=== PATIENT | female | born 1945 | race Caucasian/White ===

== ENCOUNTER 2021-12-10 08:55 | Emergency (ER) | payer MEDICARE, OTHER, SELFPAY ==
[2021-12-10 09:09] VITALS: BP 122/75; PULSE 64; RESP 18; TEMP 36.5; O2SAT 98
--- NOTE | 2021-12-10 09:21 | ED.GENADUL_ITS ---
Discharge Plan Disposition Patient Disposition: HOME Condition: Good Discharge Details Clinical Impression: Tick bite of left upper arm Primary Care Provider: Rebecca Kumar ED Provider: Kerry Urban Home Meds and New Rx's Prescriptions: New doxycycline hyclate 100 mg tablet 200 mg PO DAILY Qty: 2 0RF Rx Instructions: take 200mg x 1 after breakfast Discharge Instructions Instructions: Tick Bite (ED) Additional Instructions: I am concerned you were bit by a deer tick which was potentially embedded long enough to transmit Lyme disease or other tickborne illness. Given the time from when he removed the tick coming in, we are able to treat you with a one-time dose of doxycyclin. I would like for you to eat something prior to taking the antibiotic. As we discussed, this can cause some sensitivity to the sun so please try to keep yourself covered. Please follow-up with your primary care for reevaluation as needed. As discussed, if you notice that small area of redness to begin expanding, you develop fever/chills or other new/worsening symptoms please seek care urgently once again. Referrals: Rebecca Kumar [Primary Care Provider] - Medical Decision Making Patient is a pleasant 76-year-old female presented with chief complaint of tick bite. She reports that she removed an embedded tick from her left upper arm yesterday after working in the yard. States that the tick was clearly embedded and was very tiny. Was not able to tell me what type of tick it was. However, size description does have a concern for deer tick. She denies any fever/chills. No chest pain or palpitations. No radiation of pain. No joint swelling or new joint discomfort. On exam, patient appears nontoxic. She has a small circular area of erythema in the medial aspect of the left upper extremity Distant with history of embedded tick and removal. No surrounding evidence to suggest a cellulitis, no lymphadenopathy. Her history does have any concern for tickborne illness expos ure. I do feel that treating with prophylactic antibiotics is appropriate. We will give a one-time dose of 200 mg of doxycycline. We discussed new/worsening symptoms that should prompt urgent evaluation. I did warn side effects associate with doxycycline. Return discussed. All of her questions and concerns were addressed agreement with plan. HPI General Date/Time Provider Initiated Documentation: 12/10/21 09:20 . Limitations to Documentation: no limitations . Information obtained by: patient and RN notes reviewed . History of Present Illness 76 year old F presents to the emergency department with the chief comp laint of tick bite left upper arm, described as moderate, with intensity rated at 5. Quality is described as aching, and is localized to the left and upper extremity. Patient reports no radiation. Patient started experiencing this day(s) (last night) and it has been constant. No relieving factors improve symptom(s), No exacerbating factors reported . Patient notes no other symptoms.. Patient did receive the following treatments prior to arrival, none Related Data Home Medications Medication Instructions Recorded Confirmed doxycycline hyclate 100 mg tablet 200 mg PO DAILY #2 tabs 12/10/21 Previous Rx's Medication Instructions Recorded doxycycline hyclate 100 mg tablet 200 mg PO DAILY #2 tabs 12/10/21 Allergies Allergy/AdvReac Type Severity Reaction Status Date / Time nylon AdvReac Mild Skin Rash Unverified 12/10/21 09:14 General Stated Complaint: RashLesion COLLIN: 4 Review of Systems Constitutional Constitutional: Reports as per HPI, Denies chills and Denies fever(s) Cardiovascular Cardiovascular: Reports as per HPI, Denies chest pain and Denies dyspnea Respiratory Respiratory: Reports as per HPI, Denies cough and Denies dyspnea Musculoskeletal Musculoskeletal: Reports as per HPI, Denies arthralgias and Denies joint sw elling Integumentary/Breasts Skin/Breast: Reports as per HPI Neurologic Neurologic: Reports as per HPI, Denies sensory deficit and Denies paresthesias PFSH All Active Problems (Updated 12/10/21 @ 09:27 by AME Bhakta) Tick bite of left upper arm (Acute) Social History Smoking/Tobacco Use Status: Never Smoking risk assessment performed?: Yes Alcohol Intake: current Alcohol Intake frequency: a few times a week Alcohol type: beer Drug use: Never Do you feel safe at home: Yes Do you feel safe in your relationship?: Yes Exam Const General: cooperative, healthy appearing, comfortable, no acute distress and well developed Nutritional Appearance: average body habitus and well nourished Orientation: alert and awake Resp Effort & Inspection: normal respiratory effort, able to speak in complete sentences and no respiratory distress Cardio Rate: regular rate Rhythm: regular rhythm Skin General skin exam: erythema Neuro General: patient alert and patient awake Cognition: normal cognition Speech: speech normal Gait: normal gait Sensory Exam: no sensory deficits noted Extrem Shoulder/upper arm images: 1. <1cm erythematous [place] surrounding dark area consistent with puncture from tick. No lymphadenopathy. Good ROM. No fluctuance, induration, streaking Psych Appearance: grossly normal and well kempt Mental Status: mental status grossly normal Speech and Movement: speech and movement normal Course Vital Signs Vital signs: Vital Signs Temperature 36.5 C 12/10/21 09:09 Pulse 64 12/10/21 09:09 Respiratory Rate 18 12/10/21 09:09 Blood Pressure 122/75 12/10/21 09:09 Pulse Oximetry 98 12/10/21 09:09 Temperature 36.5 C 12/10/21 09:09 Temperature Source Skin 12/10/21 09:09 Pulse 64 12/10/21 09:09 Respiratory Rate 18 12/10/21 09:09 Blood Pressure 122/75 12/10/21 09:09 Blood Pressure Position Sitting 12/10/21 09:09 Pulse Oximetry 98 12/10/21 09:09 Oxygen Delivery Method Room Air 12/10/21 09:09 Oxygen Flow Rate 0 12/10/21 09:09 Pain Level 5 12/10/21 09:09 Comment 12/10/21 09:09 PAWSS Have you Been Recently Intoxicated or Drunk Within the Last 30 days?: No Have you Ever Experienced Previous Episodes of Alcohol Withdrawal?: No Have you ever Experienced Withdrawal Seizures?: No Have you ever Experienced Delirium Tremens(DT)s?: No Have you ever undergone Alcohol Rehabilitation Treatment (i.e, inpt ot outpatient treatment programs)?: No Have you ever Experienced Blackouts?: No Have you ever Combined Alcohol with other Downers within the last 90 days?: No Have you ever Combined Alcohol with any other Substance of Abuse during the last 90 days?: No Positive Blood Alcohol level on Presentation? [PCS.BAL]: No Evidence of Increased Autonomic Activity (i.e. HR>120, tremor, sweating, agitation, nausea)?: No Result: 0
== END 2021-12-10 09:42 | disposition home or self-care (01) ==
PROVIDERS: Emergency Provider Physician Assistant; PCP Internal Medicine
DX: S40.862A Insect bite (nonvenomous) of left upper arm, initial encounter (principal); W57.XXXA Bitten or stung by nonvenomous insect and other nonvenomous arthropods, initial encounter
CPT/HCPCS: 99283

== ENCOUNTER 2022-05-24 08:47 | Emergency (ER) | payer MEDICARE, OTHER, SELFPAY ==
[2022-05-24 08:51] VITALS: BP 132/68; PULSE 71; RESP 18; TEMP 36.8; O2SAT 97
--- NOTE | 2022-05-24 09:05 | ED.GENADUL_ITS ---
Discharge Plan Disposition Patient Disposition: HOME Condition: Good Discharge Details Clinical Impression: Tick bite Primary Care Provider: Jannette Devi ED Provider: Dung Tidwell Home Meds and New Rx's Prescriptions: Continued doxycycline hyclate 100 mg tablet 200 mg PO DAILY Qty: 2 0RF Rx Instructions: take 200mg x 1 after breakfast atorvastatin 20 mg Tablet 20 mg PO DAILY torsemide 20 mg Tablet 20 mg PO DAILY brinzolamide [Azopt] 1 % Drops,Suspension 1 drp OPHTHALMIC (EYE) BID lisinopril [Zestril] 20 mg Tablet 10 mg PO DAILY allopurinol 100 mg Tablet 100 mg PO DAILY spironolactone 25 mg Tablet 12.5 mg PO DAILY timolol maleate 0.5 % Drops 1 drp OPHTHALMIC (EYE) DAILY metoprolol tartrate 25 mg Tablet 12.5 mg PO BID Discharge Instructions Instructions: Tick Bite (ED) Additional Instructions: Please watch for signs of infection and return immediately if these occur. Otherwise if you develop any flulike symptoms, joint swelling, rash, or other concerning findings for Lyme disease please follow-up with your primary care provider for reassessment or if unable to obtain an appointment feel free to return the emergency department. Referrals: Jannette Devi [Primary Care Provider] - (As needed for reassessment) Medical Decision Making Patient presenting the emergency department for tick bite to right posterior thigh. Patient denies any symptoms and states she attempted to remove the tick but only got part of it out. Physical exam shows embedded tick to the right posterior leg with mild surrounding erythema. No bull's-eye type rash, exam otherwise unremarkable. Attempted to remove remaining portions of tick that was successful. Patient was encouraged to watch site for signs of infection. Given that tick was embedded and unknown exact amount of time of bite we will give patient single dose of doxycycline due to local prevalence of Lyme disease. Patient encouraged to continue to monitor symptoms and follow-up with primary care provider or return to the emergency department as needed. After discussion of diagnosis and plan of care patient has no further needs, questions, or concerns and states clear understanding to return to the emergency department for any worsening symptoms. This documentation was generated using mPorticoation system, please disregard any oddities of phrase or misspellings. HPI General Mode of arrival: ambulatory . Date/Time Provider Initiated Documentation: 05/24/22 08:49 . Limitations to Documentation: no limitations . Information obtained by: patient and RN notes reviewed . History of Present Illness 76 year old F presents to the emergency department with the chief complaint of Tick bite right posterior leg, Quality is described as other (Denies pain), Patient started experiencing this unknown and it has been constant. No exacerbating factors reported . Patient notes no other symptoms.. Patient did receive the following treatments prior to arrival, none Related Data Home Medications Medication Instructions Recorded Confirmed allopurinol 100 mg tablet 100 mg PO DAILY 12/10/21 05/24/22 atorvastatin 20 mg tablet 20 mg PO DAILY 12/10/21 05/24/22 brinzolamide 1 % eye 1 drp ophthalmic (eye) BID 12/10/21 05/24/22 drops,suspension (Azopt) doxycycline hyclate 100 mg tablet 200 mg PO DAILY #2 tabs 12/10/21 05/24/22 lisinopril 20 mg tablet (Zestril) 10 mg PO DAILY 12/10/21 05/24/22 metoprolol tartrate 25 mg tablet 12.5 mg PO BID 12/10/21 05/24/22 spironolactone 25 mg tablet 12.5 mg PO DAILY 12/10/21 05/24/22 timolol maleate 0.5 % eye drops 1 drp ophthalmic (eye) DAILY 12/10/21 05/24/22 torsemide 20 mg tablet 20 mg PO DAILY 12/10/21 05/24/22 Previous Rx's Medication Instructions Recorded doxycycline hyclate 100 mg tablet 200 mg PO DAILY #2 tabs 12/10/21 Allergies Allergy/AdvReac Type Severity Reaction Status Date / Time nylon AdvReac Mild Skin Rash Unverified 12/10/21 09:14 General Stated Complaint: RashLesion COLLIN: 4 Review of Systems Narrative: 8 systems reviewed and unremarkable except what is marked below. Integumentary/Breasts Skin/Breast: Reports as per HPI, Reports erythema and Denies rash PFSH All Active Problems Tick bite (Acute) Social History Smoking/Tobacco Use Status: Never Smoking risk assessment performed?: Yes Alcohol Intake: current Alcohol Intake frequency: a few times a week Alcohol type: beer Drug use: Never Do you feel safe at home: Yes Do you feel safe in your relationship?: Yes Exam Const General: cooperative, comfortable and no acute distress Orientation: alert, awake and oriented x3 Resp Effort & Inspection: normal respiratory effort and able to speak in complete sentences Skin General skin exam: erythema (Circular area with central bite garo consistent with insect/tick bite), no fluctuance, no induration and other Rashes: no rashes Neuro General: patient alert, patient awake and patient oriented x3 Course Vital Signs Vital signs: Vital Signs Temperature 36.8 C 05/24/22 08:51 Pulse 71 05/24/22 08:51 Respiratory Rate 18 05/24/22 08:51 Blood Pressure 132/68 05/24/22 08:51 Pulse Oximetry 97 05/24/22 08:51 Temperature 36.8 C 05/24/22 08:51 Temperature Source Oral 05/24/22 08:51 Pulse 71 05/24/22 08:51 Respiratory Rate 18 05/24/22 08:51 Respiratory Effort Non-Labored 05/24/22 08:54 Blood Pressure 132/68 05/24/22 08:51 Blood Pressure Position Sitting 05/24/22 08:51 Pulse Oximetry 97 05/24/22 08:51 Pain Level 0 05/24/22 08:51
[2022-05-24] MEDS: Doxycycline Hyclate 100 MG CAP 200 MG PO (09:09)
== END 2022-05-24 09:12 | disposition home or self-care (01) ==
PROVIDERS: Emergency Provider Nurse Practitioner Family; PCP Nurse Practitioner Family
DX: S70.361A Insect bite (nonvenomous), right thigh, initial encounter (principal); W57.XXXA Bitten or stung by nonvenomous insect and other nonvenomous arthropods, initial encounter
CPT/HCPCS: 99283

== ENCOUNTER 2024-01-07 01:40 | Outpatient (CLI) | payer MEDICARE, OTHER, SELFPAY ==
[2024-01-07 14:04] LABS: HCT 36.7 % (36.0-46.0); MCH 30.9 pg (27.0-33.0); MCHC 32.7 % (32.0-36.0); MCV 95 fL (80-95); MPV 10.4 fL (8.0-11.0); Platelet Count 192 10^3/uL (130-400); RBC 3.88 10^6/uL (3.93-5.22); RDW 13.4 % (11.7-14.6); RDW-SD 46.8 fL; WBC 6.13 10^3/uL (4.4-10.8)
[2024-01-07 14:36] LABS: ALT 24 U/L (14-59); AST 20 U/L (15-37); Albumin 4.1 g/dL (3.4-5.0); Alkaline Phosphatase 65 U/L (46-116); Anion Gap 9.7 mmol/L (3-11); BUN 29 mg/dL (7-18); Bilirubin, Total 0.5 mg/dL (0.2-1.0); CO2 25.3 mmol/L (21.0-32.0); CREATININE 1.3 mg/dL (0.55-1.02); Calcium 9.3 mg/dL (8.5-10.1); Chloride 104 mmol/L (98-107); Estimated GFR 41.83 (mL/min/1.73m2); Glucose 91 mg/dL (74-106); Potassium 3.9 mmol/L (3.5-5.1); Sodium 139 mmol/L (136-145); Total Protein 7.1 g/dL (6.4-8.2); Uric Acid 5.8 mg/dL (2.6-6.0)
[2024-01-07 14:49] LABS: Calculated LDL 61 mg/dL (<100); Cholesterol 135 mg/dL (<200); HDL Cholesterol 41 mg/dL (40-60); Triglyceride 165 mg/dL (<150)
== END 2024-01-07 01:41 | disposition home or self-care (01) ==
LOC: LBO 01:40
PROVIDERS: PCP Family Medicine; Visit Provider Family Medicine
DX: I10 Essential (primary) hypertension; E11.9 Type 2 diabetes mellitus without complications; E03.9 Hypothyroidism, unspecified
CPT/HCPCS: 36415; 80053; 80061; 85027; 83036; 84443; 84550

== ENCOUNTER 2024-07-09 00:12 | Outpatient (CLI) | payer MEDICARE, OTHER, SELFPAY ==
--- OUTSIDE RECORDS SUMMARY | 2024-07-09 00:15 | XMS_ITS | Referral Summary ---
Author Organization [facility] Address [address] [place] [address] Care Team Providers Care Kit Planner Name Role Phone Jannette Perales NP Primary Care Provider Luis Elaine MD Unavailable [phone] Encounters Date Type Department Care Team Description 07/06/[address] [facility] - [address] [address] Cht, Admin Patient Outreach from Last 3 Months Allergies Active Allergy Reactions Criticality Noted Date Comments Hydromorphone Itching 07/24/2016 Hydrocodone Itching 07/24/2016 Oxycodone Itching 07/24/2016 Other reaction(s): urticaria, pt reports ok if take 1 at HS Dipivefrin Rash 07/24/2016 Eye drops Medications brinzolamide (AZOPT) 1 % ophthalmic suspension Place 1 Drop into both eyes 2 times daily. Active cholecalciferol, Vitamin D3, 1,000 unit tablet Take 1 Tablet by mouth daily. Active latanoprost (XALATAN) 0.005 % ophthalmic solution PLACE ONE DROP INTO BOTH EYES NIGHTLY 11 9 Active aspirin 81 mg EC tablet Take 1 Tablet by mouth daily. Active timolol (TIMOPTIC) 0.5 % ophthalmic solution 1 Active acetaminophen (TYLENOL) 500 mg tablet Take 1 Tablet by mouth every 6 hours as needed for Pain. Active allopurinoL (ZYLOPRIM) 100 mg tabletIndications:H yperuricemia Take 1 Tablet by mouth daily. 90 Tablet 3 4 Active atorvastatin (LIPITOR) 20 mg tabletIndications:A rteriosclerotic cardiovascular disease Take 1 Tablet by mouth daily. 90 Tablet 3 4 Active ZESTRIL 20 mg tabletIndications:E ssential (primary) hypertension Take 0.5 Tablets by mouth daily. 90 Tablet 3 4 Active traZODone (DESYREL) 50 mg tabletIndications:P rimary insomnia Take 1 Tablet by mouth at bedtime. 90 Tablet 3 4 Active spironolactone (ALDACTONE) 25 mg tabletIndications:E ssential (primary) hypertension Take 0.5 Tablets by mouth daily. 45 Tablet 3 4 Active torsemide (DEMADEX) 20 mg tabletIndications:E ssential (primary) hypertension Take 1 Tablet by mouth daily. 90 Tablet 1 4 Active Active Problems Patient Care Coordination No te Formatting of this note migh t be different from the original. 2022-02- [facility]- Permission to speak with Fuentes Rodrigez (son) and Fide Salmeron (daughter) Problem Noted Date Diagnosed Date CKD (chronic kidney disease) stage 3, GFR 30-59 ml/min ([facility]) 06/14/2019 Depression 06/14/2019 Diastolic dysfunction 06/14/2019 Essential (primary) hypertension 06/14/2019 Exertional dyspnea 06/14/2019 Glaucoma 06/14/2019 Hyperlipidemia 06/14/2019 Hyperuricemia 06/14/2019 Impaired glucose tolerance 06/14/2019 Insomnia 06/14/2019 Obstructive sleep apnea 06/14/2019 Arteriosclerotic cardiovascular disease 06/14/20 19 Osteopenia 06/14/2019 Other fatigue 06/14/2019 Tear of right supraspinatus tendon 06/14/2019 Gastroesophageal reflux disease without esophagi tis 01/01/2018 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 Overview (06/15/2019): Last Assessment & Plan: Assessment: No progressive glaucoma damage on current medical therapy Plan: Continue present meds: * Azopt both eyes 2 times daily * Timolol gel both eyes daily * Latanoprost both eyes nightly Follow-up in 6 more months with repeat [facility] - see montessori teacher next visit then back to new glaucoma provider once we have one on board Pseudophakia of both eyes 01/16/2011 S/P rotator cuff surgery 11/19/2010 Overview (06/15/2019): Overview: Bilateral repairs S/P tonsillectomy 11/19/2010 S/P hysterectomy 11/19/2010 S/P left mastectomy 11/19/2010 S/P coronary artery stent placement 11/19/2010 S/P cerebral aneurysm repair 11/19/2010 Acute spont subarachnoid int racranial hemorrhage d/t cerebral aneurysm ([facility]) 11/19/2010 Status post hip replacement 11/13/2010 Overview (06/15/2019): Overview: Dx replacement utility run on deactivated IMO Dx [id number] Resolved Problems Problem Noted Date Diagnosed Date Resolved Date Knee pain 06/14/2019 12/09/2022 Malignant neoplasm of female breast ([facility]) 06/14/20 19 09/16/2020 Immunizations Name Administration Dates Next Due Covid-19 mRNA Vaccine (MODER NA COVID-19) PF 0.5 ml IM (12 yrs+) 05/28/2021,10/06/2020,09/08/2020 Covid-19 mRNA-LNP 2022- Va ccine (MODERNA COVID-19) PF 0.5 mL IM (12 yrs+) 06/13/2023 Covid-19 mRNA-LNP Bivalent V accine (MODERNA BIVALENT ADDL DOSE) PF 0.5 mL IM (12 yrs+) (BLUE) 04/30/2022 Influenza (whole) 04/27/2010,07/28/2005 Influenza Vaccine High Dose (FLUZONE HIGH DOSE) PF 0.7 ml IM (65 yrs+) 06/13/2020 Influenza Vaccine Quad (AFLU DI) PF 0.5 ml IM (3 yrs+) 06/10/2018,06/09/2017,07/09/2016 Influenza Vaccine Quad High Dose (FLUZONE HIGH DOSE) PF 0.7 ml IM (65 yrs+) 2021 Influenza Vaccine Quad PF 0. 5 ml IM (6 mos+) 06/18/2019 Pneumococcal Conjugate Vacci ne 13-Valent (PCV13) (PREVNAR-13) 0.5 mL IM (6 wks+) 07/07/2015 Pneumococcal Polysaccharide (PPSV23) Vaccine (PNEUMOVAX-23) =>2YO SQ/IM 07/02/2013,09/05/2006 Tdap Vaccine =>7YO IM 04/17/2012 Social History Tobacco Use Types Packs/Day Years Used Date Smoking Tobacco: Never Smokeless Tobacco: Never Tobacco Cessation:Counseling Given: Not Answered Alcohol Use Standard Drinks/Week Comments Yes 2 (1 standard drink = 0.6 oz pur e alcohol) Overall Financial Resource Strain (CARDIA) Answe r Date Recorded How hard is it for you to pa y for the very basics like food, housing, medical care, and heating? Not hard at all 2021 PHQ-2 Answer Date Recorded PHQ-2 SUBTOTAL 0 2021 Hunger Vital Sign Answer Date Recorded Within the past 12 months, y ou worried that your food would run out before you got the money to buy more. Never true 09/20/19 22 Within the past 12 months, t he food you bought just didn't last and you didn't have money to get more. Never true 2021 PRAPARE - Transportation Answer Date Re corded In the past 12 months, has l ack of transportation kept you from medical appointments or from getting medications? No 08/29 In the past 12 months, has l ack of transportation kept you from meetings, work, or from getting things needed for daily living? No 2021 Housing Stability Vital Sign Answer Alan e Recorded In the last 12 months, was t here a time when you were not able to pay the mortgage or rent on time? No 2021 In the last 12 months, how many places have you lived? 1 2021 In the last 12 months, was t here a time when you did not have a steady place to sleep or slept in a snf (including now)? No 2021 Interpersonal Safety Answer Date Record ed How often does anyone, inclroz lilly family, hit, punch or physically hurt you? Never 2021 How often does anyone, jennifer lilly family, insult, scream, curse or threaten to hurt you? Never 2021 Comments Unknown Sex and Gender Information Value Date Recorded Sex Assigned at Not on file Legal Sex Female 18:07 EST Gender Identity Female 02/07/2020 10:33 EDT Sexual Orientation Not on file Last Filed Vital Signs Vital Sign Reading Time Taken Comments Blood Pressure 132/70 06/13/2023 1126 EST Pulse 62 06/13/2023 1126 EST Temperature 35.9 ??C (96.7 ??F) 09/15/2020 1329 EST Respiratory Rate 14 06/13/2023 1126 EST Oxygen Saturation 98% 03/06/2023 1026 EDT Inhaled Oxygen Concentration - - Weight 65.7 kg (144 lb 12.8 oz) 06/13/2023 1126 EST Height 152.4 cm (5') 06/13/2023 1126 EST Body Mass Index 28.28 06/13/2023 1126 EST Plan of Treatment Not on file Procedures Procedure Name Priority Date/Time Associated Diagnosis Comments HEPATITIS C AB W REFLEX TO HCV RNA BY PCR Add-On 09/15/2021 9:01 EST Screening for viral disease LIPID PROFILE (INCLUDES CHOLESTEROL, TRIGLYCERIDES, HDL, LDL) Routine 09/15/2021 9:01 EST Routine medical exam Mixed hyperlipidemia DXA BONE DENSITY 10/19/2020 14:2 1 EDT COLONOSCOPY PROCEDURE Routine 04/21/2008 from Last 3 Months or Most Recently Relevant to Health Maintenance Results * HEPATITIS C AB W REFLEX TO HCV RNA BY PCR (09/15/2021 9:01 EST) Hep C Antibody Negative Negative 09/17/2021 13:41 EST [facility] Blood VENOUS BLOOD / Unknown Venipuncture / Unknown 09/15/2021 9:01 EST 09/15/2021 9:10 EST us Jannette Perales NP CHEMISTRY & BLOOD GAS ORDERABLES Final Result [facility] [address] [place] [address] * LIPID PROFILE (INCLUDES CHOLESTEROL, TRIGLYCERIDES, HDL, LDL) (09/15/2021 9:01 EST) Cholesterol 153 See Note mg/dL 09/15/2021 10:16 [facility] Comment: Acceptable: ?<200 mg/dL Borderline High: 200-239 mg/dL High: ?> or = 240 mg/dL HDL 32 See Note mg/dL 09/15/2021 10:16 [facility] Comment: Low: ? <40 mg/dL Normal: ??40-60 mg/dL High: ?>60 mg/dL LDL, Calculated 71 See Note mg/dL 09/15/2021 10:16 [facility] Comment: Optimal: ? <100 mg/dL Near Optimal: ?100-129 mg/dL Borderline High: 130-159 mg/dL High: ?160-189 mg/dL Very High: ? > or = 190 mg/dL Triglyceride 248 See Note mg/dL 09/15/2021 10:16 [facility] Comment: Normal: ? <150 mg/dL Borderline High: ??150 - 199 mg/dL High: ? 200 - 499 mg/dL Very High: ?> or = 500 mg/dL Chol/HDL Ratio 4.8 See Note 09/15/2021 10:16 [facility] Comment: NOTE: Desirable Ratio = <4.1 Patient At Risk Ratio = >5.0(Males) ?>6.0(Females) Non HDL Cholesterol 121 See Note mg/dL 09/15/2021 10:16 [facility] Comment: Desirable: ?<130 mg/dL Borderline High: ??130-159 mg/dL High: ? 160-189 mg/dL Very High: ?> or = 190 mg/dL Blood VENOUS BLOOD / Unknown Venipuncture / Unknown 09/15/2021 9:01 EST 09/15/2021 9:10 EST us Jannette Perales [employer] CHEMISTRY & BLOOD GAS ORDERABLES Final Result [facility] [address] [place] [address] * XR DEXA BONE DENSITY (10/19/2020 14:21 EDT) Anatomical Region Laterality Modality Other 10/18/2020 10:2 8 EDT Narrative 10/19/2020 14:21 EDT ? EXAM: RADIOLOGY/DEXA/BONE DENSITY-AXIAL ?? EX. D/ (1028) ? CLINICAL INFORMATION: ? Z78.0 POST MENOPAUSAL ? See attached report. ??Report also available in PACS and [employer] for ? ordering [facility] Providers. ? STRAP MAKING MACHINE OPERATOR:kad ?Reported By: Chuy Mantilla MD ? CC: ? Transcribed Date/Time: 10/19/2020 (1421) ? Business Coordinator: DARCI ? Printed Date/Time: 10/19/2020 (1421) ? PAGE 1 ? Signed Report ? Procedure Note Chuy Mantilla MD - 03/25/2021 EXAM: RADIOLOGY/DEXA/BONE DENSITY-AXIAL EX. D/ (1028) CLINICAL INFORMATION: Z78.0 POST MENOPAUSAL See attached report. Report also available in PACS and EPIC for ordering [facility] Providers. STRAP MAKING MACHINE OPERATOR:anjana Reported By: Chuy Mantilla MD CC: Transcribed Date/Time: 10/19/2020 (587) Business Coordinator: DARCI Printed Date/Time: 10/19/2020 (6871) PAGE 1 Signed Report Jannette Perales NP IMG DEXA ORDERABLES Final Result * COLONOSCOPY PROCEDURE (04/21/2008) Colonoscopy Colonoscopy, External Comment:SIgmoid spasm, other bacon normal exam, repeat in 10 yrs Anatomical Region Laterality Modality Endoscopy Historical Provider GI PROCEDURE ORDERABLES F inal Result from Last 3 Months or Most Recently Relevant to Health Maintenance Insurance [facility] MEDICARE [place] Member Subscriber Plan / Payer ( fective 2012-Present) Name:Sona Rodrigez Relation to Subscriber:Self Name:Sona Rodrigez Payer ID:[id number] ([facility]) Type:Cigna Address: [facility] [id number] [place] [address] Care Teams Kit Planner Relationship Specialty Start Date End Date Jannette Perales NP [address] [place] [phone] PCP - General 11/13/17 Luis Elaine MD [address] [place] [address] [phone] Cardiovascular Disease 03/05/22
--- OUTSIDE RECORDS SUMMARY | 2024-07-09 00:15 | XMS_ITS | Clinical Summary ---
Author Organization [facility] Address [address] [place] [address] Care Team Providers Care Picking Supervisor Name Role Phone Diaz Jannette FLORENCIO Primary Care Provider [phone] Luis Elaine MD Unavailable [phone] Allergies Active Allergy Reactions Criticality Noted Date [...] migh t be different from the original. 2021-8-10 [facility]- Permission to speak with Fuentes Rodrigez (son) and Fide Salmeron (daughter) Problem Noted Date Diagnosed Date CKD (chronic kidney disease) stage 3, GFR 30-59 ml/min ([facility]) 06/14/2019 Depression 06/14/2019 Diastolic dysfunction 06/14/2019 Essential [...] Field and Optical Coherence Tomography - see gum scoring machine operator next visit then back to new glaucoma provider once we have one on board Pseudophakia of both eyes 01/16/2011 S/P rotator cuff surgery 11/19/2010 Overview (06/15/2019): Overview: Bilateral repairs S/P tonsillectomy 11/19/2010 S/P hysterectomy 11/19/2010 S/P left mastectomy 11/19/2010 S/P coronary artery stent placement 11/19/2010 S/P cerebral aneurysm repair 11/19/2010 Acute spont subarachnoid int racranial hemorrhage d/t cerebral aneurysm ([facility]) 11/19/2010 Status post hip replacement 11/13/2010 Overview (06/15/2019): Overview: Dx replacement utility run on deactivated IMO Dx [id number] Resolved Problems Problem Noted Date Diagnosed Date Resolved Date Knee pain 06/14/2019 12/09/2022 Malignant neoplasm of female breast ([facility]) 06/14/20 19 09/16/2020 Encounters Date Type Department Care Team Description 07/06/2024 Telephone [facility] Adult Primary Care - [address] [address] Cht, Admin Patient Outreach from Last 3 Months Immunizations Name Administration Dates Next Due Covid-19 [...] SQ/IM 07/02/2013,09/05/2006 Tdap Vaccine =>6YO IM 04/17/2012 Surgical History Surgery Date Site/Laterality Comments TONSILLECTOMY APPENDECTOMY HYSTERECTOMY BREAST SURGERY Left mastectomy JOINT REPLACEMENT TKR SPINE SURGERY scoliosis TOTAL HIP ARTHROPLASTY Left THR TOTAL HIP ARTHROPLASTY Right THR BRAIN SURGERY cerebral aneurysm repair [place] OTHER SURGICAL HISTORY RTC L OTHER SURGICAL HISTORY RTC R CORONARY ANGIOPLASTY WITH STENT PLACEMENT 07/28/2006 - 07/27/2007 Cath -07 showed 65% mid LAD, 40% prox LCx, mild diffuse, 30% prox RCA and 85% mid RCA (s/p 3.5x18 cypher); LVEF 65% Medical History Medical History Date Comments Hypertension Cerebral artery occlusion wi cerebral infarction ([facility]) Heartburn Cancer ([facility]) Sleep apnea Cerebral aneurysm Arthritis Advanced OA bila t knees IGT (impaired glucose tolerance) NAFLD (nonalcoholic fatty liver disease) 2004 History of left breast cancer ' 2 s/p left modified mastectomy (saline implant) SAH (subarachnoid hemorrhage) ([facility]) '88 s/p clipping LMCA/ACOM anuerysm Right rotator cuff tear 10/2005 s/p repa ir Scoliosis s/p Diallo R ods Condition not found Question of gout,05/2014 Family History Medical History Relation Comments Heart Disease Father Cancer Mother Cancer Sister Migraines Sister Relation Status Comments Father Mother Sister Social History Tobacco Use Types Packs/Day Years [...] place to sleep or slept in a fpc (including now)? No 2021 Interpersonal Safety Answer Date Record ed How often does anyone, jennifer lilly family, hit, punch or physically hurt you? Never 2021 How often does anyone, jennifer lilly family, insult, scream, curse or threaten to hurt you? Never 2021 Comments Unknown Sex and Gender Information Value Date Recorded Sex Assigned at Not on file Legal Sex Female 18:07 EST Gender Identity Female 02/07/2020 10:33 EDT Sexual Orientation Not on file Obstetrics History Last Filed Vital Signs Vital Sign Reading [...] 28.28 06/13/2023 1126 EST Plan of Treatment Health Maintenance Due Date Last Done Comments Advance Directive 1962 Shingles Immunization (1 of 2) 1994 RSV Immunization ( o r 60+ Years) (1 - 1-dose 75+ series) 2019 Tetanus (Adult) Immunization 04/17/2022 04/17/2012 Depression Screening 2022 2021 Social Determinants Of Healt h (SDOH) 2022 2021 Preventive Care Visit 2023 2021, 021 Fall Risk Screening 03/06/2024 03/06/2023, COVID-19 Vaccine (2023- 5 season) 2024 06/13/2023, 04/30/2022, 05/28/2021, Additional history exists Influenza Immunization (Adul t) (#1) 2024 2021, 06/13/2020, 06/18/2019, Additional history exists Lipid Profile Screening (Cholesterol) 09/15/2026 09/15/2021, 03/01/2020, 02/10/2019, Additional history exists Colonoscopy (Colon Cancer Screening) Discontinued 04/21/2008 Colorectal Cancer Screening Discontinued Pertussis (Adult) Immunization Completed 04/17/2012 Pneumococcal Immunization (65+) Completed 07/07/2015, 07/02/2013, 09/05/2006 Osteoporosis Screening Completed 10/19/2020 Hepatitis C Screen Completed 09/15/2021 Cologuard (Colon Cancer Screening) Discontinued FIT Test (Colon Cancer Screening) Discontinued Sigmoidoscopy (Colon Cancer Screening) Discontinued Procedures Procedure Name Priority Date/Time Associated Diagnosis [...] Hep C Antibody Negative Negative 09/17/2021 13:41 [facility] Blood VENOUS BLOOD / Unknown Venipuncture / Unknown 09/15/2021 9:01 EST 09/15/2021 9:10 EST us Jannette Diaz MATIAS CHEMISTRY & BLOOD GAS ORDERABLES Final Result [facility] [address] [place] [address] * LIPID PROFILE (INCLUDES CHOLESTEROL, TRIGLYCERIDES, HDL, LDL) (09/15/2021 9:01 EST) Cholesterol 153 See Note mg/dL 09/15/2021 10:16 [facility] Comment: Acceptable: ?<200 mg/dL Borderline High: 200-239 mg/dL High: ?> or = 240 mg/dL HDL 32 See Note mg/dL 09/15/2021 10:16 [facility] Comment: Low: ? <40 mg/dL Normal: ??40-60 mg/dL High: ?>60 mg/dL LDL, Calculated 71 See Note mg/dL 09/15/2021 10:16 [facility] Comment: Optimal: ? <100 mg/dL Near Optimal: ?100-129 mg/dL Borderline High: 130-159 mg/dL High: ?160-189 mg/dL Very High: ? > or = 190 mg/dL Triglyceride 248 See Note mg/dL 09/15/2021 10:16 [facility] Comment: Normal: ? <150 mg/dL Borderline High: ??150 - 199 mg/dL High: ? 200 - 499 mg/dL Very High: ?> or = 500 mg/dL Chol/HDL Ratio 4.8 See Note 09/15/2021 10:16 [facility] Comment: NOTE: Desirable Ratio = <4.1 Patient At Risk Ratio = >5.0(Males) ?>6.0(Females) Non HDL Cholesterol 121 See Note mg/dL 09/15/2021 10:16 EST [facility] Comment: Desirable: ?<130 mg/dL Borderline High: ??130-159 mg/dL High: ? 160-189 mg/dL Very High: ?> or = 190 mg/dL Blood VENOUS BLOOD / Unknown Venipuncture / Unknown 09/15/2021 9:01 EST 09/15/2021 9:10 EST us Jannette Perales [employer] CHEMISTRY & BLOOD GAS ORDERABLES Final Result Performing Organization Address City/State/[facility] Co de Phone Number [facility] [address] [place] [address] * XR DEXA BONE DENSITY (10/19/2020 14:21 EDT) Anatomical Region Laterality Modality Other 10/18/2020 10:2 8 EDT Narrative 10/19/2020 14:21 EDT ? EXAM: RADIOLOGY/DEXA/BONE DENSITY-AXIAL ?? EX. D/ (1028) ? CLINICAL INFORMATION: ? Z78.0 POST MENOPAUSAL ? See attached report. ??Report also available in PACS and myaNUMBER for ? ordering [facility] Providers. ? GATE SHEAR OPERATOR:kad ?Reported By: Chuy Mantilla MD ? CC: ? Transcribed Date/Time: 10/19/2020 (1420) ? Thread Laster: DARCI ? Printed Date/Time: 10/19/2020 (1420) ? PAGE 1 ? Signed Report ? Procedure Note Chuy Mantilla MD - 10/19/2020 EXAM: RADIOLOGY/DEXA/BONE DENSITY-AXIAL EX. D/ (1028) CLINICAL INFORMATION: Z78.0 POST MENOPAUSAL See attached report. Report also available in PACS and myaNUMBER for ordering [facility] Providers. GATE SHEAR OPERATOR:anjana Reported By: Chuy Mantilla MD CC: Transcribed Date/Time: 10/19/2020 (1420) Thread Laster: DARCI Printed Date/Time: 10/19/2020 (1420) PAGE 1 Signed Report Jannette Perales NP IMG DEXA ORDERABLES Final Result * COLONOSCOPY PROCEDURE (04/21/2008) Colonoscopy Colonoscopy, External Comment:SIgmoid spasm, other bacon normal exam, repeat in 10 yrs Anatomical Region Laterality Modality Endoscopy Historical Provider GI PROCEDURE ORDERABLES F inal Result from Last 3 Months or Most Recently Relevant to Health Maintenance Insurance [employer] Care Teams Picking Supervisor Relationship Specialty Start Date End Date Jannette Perales NP [address] [place] [phone] PCP - General 11/13/17 Luis Elaine MD [address] [place] [address] [phone] Cardiovascular Disease 03/05/22
--- OUTSIDE RECORDS SUMMARY | 2024-07-09 00:16 | XMS_ITS | Encounter Summary ---
Author Organization Health system Address [address] [place] [address] Care Team Providers Care Inventory Taker Name Role Phone Jannette Perales NP Primary Care Provider [phone] Reason for Visit * Reason Comments Other Encounter Details Date Type Department Care Team ([facility] st Contact Info) Description 02/26/2021 Refill [facility] Adult Primary Care - [place] [address] [place] [address] Jannette Perales NP [address] [place] [phone] Other Social History Tobacco Use Types Packs/Day Years Used Date Smoking Tobacco: Never Smokeless Tobacco: Never Alcohol Use Standard Drinks/Week Comments Yes 2 (1 standard drink = 0.6 oz pur e alcohol) Interpersonal Safety Answer Date Record ed Physically Hurt Never 02/27/2020 Verbally Threaten Not on file 02/27/2020 Comments Unknown Sex and Gender Information Value Date Recorded Sex Assigned at Not on file Legal Sex Female 18:07 EST Gender Identity Female 02/07/2020 10:33 EDT Sexual Orientation Not on file documented as of this encounter Ordered Prescriptions Prescription Sig Dispense Quantity Refills Last Filled Start Date End Date metoprolol TARtrate (LOPRESSOR) 25 mg tabletIndications: Essential (primary) hypertension TAKE 1/2 TABLET BY MOUTH TWO TIMES A DAY 90 Tablet 3 02/27/2021 02/15/2022 documented in this encounter Miscellaneous Notes * Telephone Encounter - Lora Núñez RN - 02/27/2021 4090 EDT Script escribed documented in this encounter Plan of Treatment Not on file documented as of this encounter Visit Diagnoses Diagnosis Essential (primary) hypertension- Primary Unspecified essential hypertension documented in this encounter Discontinued Medications Medication Sig Discontinue Reason Start Date End Da te metoprolol (LOPRESSOR) 25 mg tabletIndications:Essentia l (primary) hypertension Take 0.5 Tabs by mouth 2 times daily. 03/07/2020 02/27/2021 documented as of this encounter Care Teams Inventory Taker Relationship Specialty Start Date End Date Jannette Perales NP [address] [place] [phone] PCP - General 11/13/17 documented as of this encounter
--- OUTSIDE RECORDS SUMMARY | 2024-07-09 00:16 | XMS_ITS | Encounter Summary ---
Author Organization [facility] Address [address] [place] [address] Care Team Providers Care Public Address System Installer Name Role Phone Jannette Perales NP Primary Care Provider [phone] Luis Elaine MD Unavailable [phone] Reason for Visit * Reason Comments Follow-up Encounter Details Date Type Department Care Team (Latest Contact Info) Description 12/11/2022 11:[address] [facility] Adult Primary [facility] - [address] [address] Jannette Perales NP [address] [place] [address] Essential (primary) hypertension (Primary Dx); Stage 3b chronic kidney disease (HCC-CMS); Primary insomnia; Hyperuricemia; Arteriosclerotic cardiovascular disease; Routine medical exam; Hyperglycemia Social History Tobacco Use Types Packs/Day Years [...] place to sleep or slept in a correction (including now)? No 2021 Interpersonal Safety Answer [...] on file documented as of this encounter Last Filed Vital Signs Vital Sign Reading Time Taken Comments Blood Pressure 122/62 12/11/2022 1119 EDT Pulse 54 12/11/2022 1119 EDT Temperature - - Respiratory Rate - - Oxygen Saturation 98% 12/11/2022 1119 EDT Inhaled Oxygen Concentration - - Weight 68 kg (150 lb) 12/11/2022 1119 EDT Height 152.4 cm (5') 12/11/2022 1119 EDT Body Mass Index 29.29 12/11/2022 1119 EDT documented in this encounter Ordered Prescriptions Prescription Sig Dispense Quantity Refills Last Filled Start Date End Date torsemide (DEMADEX) 20 mg tabletIndications:Es sential (primary) hypertension Take 1 Tablet by mouth daily. 90 Tablet 1 12/11/2022 3 spironolactone (ALDACTONE) 25 mg tablet Take 0.5 Tablets by mouth daily. 45 Tablet 3 12/11/2022 4 metoprolol TARtrate (LOPRESSOR) 25 mg tabletIndications:Es sential (primary) hypertension Take 0.5 Tablets by mouth 2 times daily. 90 Tablet 1 12/11/2022 3 atorvastatin (LIPITOR) 20 mg tabletIndications:Ar teriosclerotic cardiovascular disease Take 1 Tablet by mouth daily. 90 Tablet 1 12/11/2022 4 allopurinoL (ZYLOPRIM) 100 mg tabletIndications:Hy peruricemia Take 1 Tablet by mouth daily. 90 Tablet 1 12/11/2022 4 traZODone (DESYREL) 50 mg tabletIndications:Pr imary insomnia Take 1 Tablet by mouth at bedtime. 90 Tablet 3 12/11/2022 4 documented in this encounter Progress Notes * Jannette Devi NP - 12/11/2022 1130 EDT Progress Note Patient ID: Sona Rodrigez is a 77 y.o. female Date of Service: 12/11/2022 Reason for Visit: Follow-up Assessment/Plan: Blood pressure in good range today, renal function stable. Discussed chronic kidney disease, recommend avoiding NSAIDs. She is using a full-strength aspirin every day for aches and pains. Recommend changing to Tylenol. She still dealing with insomnia, will retrial trazodone which worked well for her in the past. Would avoid habit-forming medications at her age. She also dealing some left heel pain, consistent with mild sprain. Recommend compression, elevation, ice. Pain has been improving on its own. Diagnoses and all orders for this visit: Essential (primary) hypertension - metoprolol tartrate; Take 0.5 Tablets by mouth 2 times daily. - torsemide; Take 1 Tablet by mouth daily. Stage 3b chronic kidney disease (HCC) Primary insomnia - traZODone; Take 1 Tablet by mouth at bedtime. Hyperuricemia - allopurinoL; Take 1 Tablet by mouth daily. Arteriosclerotic cardiovascular disease - atorvastatin; Take 1 Tablet by mouth daily. Other orders - spironolactone; Take 0.5 Tablets by mouth daily. There are no Patient Instructions on file for this visit. Subjective: HPI: Last eGFR 10/2022 of 34mL/min. Stable CKD3. Multiple cancelled AWV. INSOMNIA: Longstanding insomnia, difficulty falling and staying asleep. She had used trazodone which worked well for her in the past but eventually lost efficacy. Was changed over to mirtazapine but this caused daytime fatigue and so she stopped. Is interested in restarting trazodone. LEFT HEEL PAIN: Two weeks of heel pain, improving. Twisted her ankle a little when it started, tripping over cat. No swelling, redness, rash. Has not tried anything to make it feel better. MAMMO: 09/2020 nml, hx L BCA w mastecomy. She would like to stop her mammograms. DXA 09/2020 nml [place] 2007 neg, cologuard 09/2020 negative. AD: Given forms today ?? SOCIAL: Her has been diagnosed with a progressive neurologic disease. He has been stable lately. Sona is less active since she is caretaking her more. ROS: See HPI Current Outpatient Medications: ??? allopurinoL (ZYLOPRIM) 100 mg tablet, Take 1 Tablet by mouth daily., Disp: 90 Tablet, Rfl: 1 ??? aspirin 81 mg EC tablet, Take 81 mg by mouth daily., Disp: , Rfl: ??? atorvastatin (LIPITOR) 20 mg tablet, Take 1 Tablet by mouth daily., Disp: 90 Tablet, Rfl: 1 ??? brinzolamide (AZOPT) 1 % ophthalmic suspension, Place 1 Drop into both eyes 2 times daily. , Disp: , Rfl: ??? cholecalciferol, Vitamin D3, 1,000 unit tablet, Take 1,000 Units by mouth daily., Disp: , Rfl: ??? latanoprost (XALATAN) 0.005 % ophthalmic solution, PLACE ONE DROP INTO BOTH EYES NIGHTLY, Disp:, Rfl: 11 ??? metoprolol TARtrate (LOPRESSOR) 25 mg tablet, Take 0.5 Tablets by mouth 2 times daily., Disp: 90 Tablet, Rfl: 1 ??? spironolactone (ALDACTONE) 25 mg tablet, Take 0.5 Tablets by mouth daily., Disp: 45 Tablet, Rfl: 3 ??? timolol (TIMOPTIC) 0.5 % ophthalmic solution, , Disp: , Rfl: ??? torsemide (DEMADEX) 20 mg tablet, Take 1 Tablet by mouth daily., Disp: 90 Tablet, Rfl: 1 ??? traZODone (DESYREL) 50 mg tablet, Take 1 Tablet by mouth at bedtime., Disp: 90 Tablet, Rfl: 3 ??? ZESTRIL 20 mg tablet, Take 0.5 Tablets by mouth daily., Disp: 90 Tablet, Rfl: 3 Past Medical History: Diagnosis Date ??? Arthritis Advanced OA bilat knees ??? Cancer (HCC-CMS) (HCC) ??? Cerebral aneurysm ??? Cerebral artery occlusion with cerebral infarction (HCC-CMS) (HCC) (HCC-CMS) ??? Condition not found Question of gout,05/2014 ??? Heartburn ??? History of left breast cancer s/p left modified mastectomy (saline implant) ??? Hypertension ??? IGT (impaired glucose tolerance) ??? NAFLD (nonalcoholic fatty liver disease) 2004 ??? Right rotator cuff tear 10/2005 s/p repair ??? SAH (subarachnoid hemorrhage) (HCC-CMS) (HCC) s/p clipping LMCA/ACOM anuerysm ??? Scoliosis s/p Diallo Rods ??? Sleep apnea Past Surgical History: Procedure Laterality Date ??? APPENDECTOMY ??? [place] [place] BREAST SURGERY Left mastectomy ??? CORONARY ANGIOPLASTY WITH STENT PLACEMENT 2006 Cath - showed 65% mid LAD, 40% prox LCx, mild diffuse, 30% prox RCA and 85% mid RCA (s/p 3.5x18 cypher); LVEF 65% ??? HYSTERECTOMY ??? JOINT REPLACEMENT TKR ??? OTHER SURGICAL HISTORY RTC L ??? OTHER SURGICAL HISTORY RTC R ??? SPINE SURGERY scoliosis ??? TONSILLECTOMY ??? TOTAL HIP ARTHROPLASTY Left THR ??? TOTAL HIP ARTHROPLASTY Right THR Allergies Allergen Reactions ??? Dilaudid [Hydromorphone] Itching ??? Hydrocodone Itching ??? Oxycodone Itching Other reaction(s): urticaria, pt reports ok if take 1 at HS ??? Propine [Dipivefrin] Rash Eye drops Objective: VS: BP 122/62 (BP Cuff Location: Right arm, BP Patient Position: Sitting) Pulse 54 Ht 152.4 cm (60) Wt 68 kg (150 lb) SpO2 98% BMI 29.29 kg/m?? Physical Exam: Gen: no acute distress, pleasant, cooperative HEENT: Head normocephalic, sclera non-icteric, features and expressions symmetrical Lungs: Unlabored breathing, no retractions. Lungs clear to auscultation bilaterally. Heart: Regular rate and rhythm, no murmur or rub. Musculoskeletal: No tenderness palpation over left ankle or heel, no swelling, redness, warmth. Skin: no lesions Neuro: alert & oriented, gait normal Speech recognition software was used to complete this progress note. Typographical errors may be present. Jannette Devi NP I spent a total of 30 minutes on the date of this encounter meeting with the patient and reviewing documentation/coordinating care as described in the above note. No procedures were performed at the time of the visit. documented in this encounter Plan of Treatment Not on file documented as of this encounter Results * COMPLETE BLOOD COUNT AND DIFFERENTIAL (06/03/2023 8:51 EST) WBC 6.71 4.00 - 12.40 K/cmm 06/03/2023 10:59 [facility] RBC 3.88 3.86 - 5.04 M/cmm 06/03/2023 10:59 [facility] Hemoglobin 12.1 11.6 - 15.2 g/dL 06/03/2023 10:59 [facility] HCT 37.6 34.9 - 44.4 % 06/03/2023 10:59 [facility] MCV 97 81 - 98 fL 06/03/2023 10:59 [facility] MCH 31.2 26.7 - 33.3 pg 06/03/2023 10:59 [facility] MCHC 32.2 32.1 - 35.9 g/dL 06/03/2023 10:59 [facility] RDW-CV 13.5 <14.7 % 06/03/2023 10:59 [facility] RDW-SD 48.0 <50.4 fl 06/03/2023 10:59 [facility] PLT 254 141 - 377 K/cmm 06/03/2023 10:59 [facility] MPV 10.8 9.5 - 12.7 fL 06/03/2023 10:59 [facility] % Neutrophils 71.1 % 06/03/2023 10:59 [facility] % Lymphocytes 17.6 % 06/03/2023 10:59 [facility] % Monocytes 7.9 % 06/03/2023 10:59 [facility] % Eosinophils 2.7 % 06/03/2023 10:59 [facility] % Basophils 0.4 % 06/03/2023 10:59 [facility] % Immature Grans 0.3 % 06/03/20 10:59 [facility] Absolute Neutrophils 4.77 2.20 - 8.85 K/cmm 06/03/2023 10:59 [facility] Absolute Lymphocytes 1.18 1.09 - 3.30 K/cmm 06/03/2023 10:59 [facility] Absolute Monocytes 0.53 0.10 - 0.80 K/cmm 06/03/2023 10:59 [facility] Absolute Eosinophils 0.18 0.03 - 0.61 K/cmm 06/03/2023 10:59 [facility] ABS Basophils 0.03 0.01 - 0.11 K/cmm 06/03/2023 10:59 [facility] Absolute Immature Grans 0.02 0.00 - 0.06 K/cmm 06/03/2023 10:59 [facility] Type of Differential: Auto 06/03/2023 10:59 [facility] Blood VENOUS BLOOD / Unknown Venipuncture / Unknown 06/03/2023 8:51 EST 06/03/2023 10:56 EST us Jannette Perales NP PACKAGES & DNA PROBE ORDERABLES Final Result [facility] [address] [place] [address] * (ABNORMAL) HEMOGLOBIN A1C (06/03/2023 8:51 EST) Pathologist [facility] Hemoglobin A1c 6.0(H) <5.7 % 06/03/2023 12:31 [facility] Comment: Glycemic Status References: Normal: ??<5.7% Pre-Diabetes: ??5.7% - 6.4% Diagnostic of Diabetes: ??> or = 6.5% (if confirmed) Est Avg Glucose 126 mg/dL 12:31 [facility] Comment:The eAG represents t he A1c result expressed as average glucose in mg/dL. Blood VENOUS BLOOD / Unknown Venipuncture / Unknown 06/03/2023 8:51 EST 06/03/2023 10:56 EST Jannette Perales ORNAMENTAL BRICK INSTALLER CHEMISTRY & BLOOD GAS ORDERABLES Final Result [facility] [address] [place] [address] * (ABNORMAL) BASIC METABOLIC PANEL (BMP) (06/03/2023 8:51 EST) [facility] Sodium 142 136 - 145 mmol/L 06/03/2023 10:18 [facility] Potassium 4.3 3.5 - 5.0 mmol/L 06/03/2023 10:18 [facility] Chloride 110 96 - 110 mmol/L 06/03/2023 10:18 [facility] CO2 Total 18(L) 22 - 32 mmol/L 06/03/2023 10:18 [facility] Anion Gap 14 5 - 14 mmol/L 06/03/2023 10:18 [facility] Glucose 94 70 - 99 mg/dl 06/03/2023 10:18 [facility] Calcium 9.1 8.5 - 10.5 mg/dL 06/03/2023 10:18 [facility] BUN 32(H) 10 - 26 mg/dL 06/03/2023 10:18 [facility] Creatinine 1.14(H) 0.52 - 1.04 mg/dL 06/03/2023 10:18 EST [facility] eGFR 49(L) >60 mL/min/1.73 m2 06/03/2023 10:18 EST [facility] Blood VENOUS BLOOD / Unknown Venipuncture / Unknown 06/03/2023 8:51 EST 06/03/2023 9:46 EST us Jannette Perlaes NP CHEMISTRY & BLOOD GAS ORDERABLES Final Result [facility] [address] [place] [address] documented in this encounter Visit Diagnoses Diagnosis Essential (primary) hypertension- Primary Unspecified essential hypertension Stage 3b chronic kidney disease (HCC-CMS) Primary insomnia Persistent disorder of initiating or maintaining sleep Hyperuricemia Other abnormal blood chemistry Arteriosclerotic cardiovascular disease Unspecified cardiovascular disease Routine medical exam Routine general medical examination at a health care facility Hyperglycemia Other abnormal glucose documented in this encounter Discontinued Medications Medication Sig Discontinue Reason Start Date End Da te metoprolol TARtrate (LOPRESSOR) 25 mg tabletIndications:Essentia l (primary) hypertension Take 0.5 Tablets by mouth 2 times daily. Reorder 02/15/2022 12/11/2022 allopurinoL (ZYLOPRIM) 100 mg tabletIndications:Hyperuri cemia Take 1 Tablet by mouth daily. Reorder 03/12/2022 12/11/2022 atorvastatin (LIPITOR) 20 mg tabletIndications:Arterios clerotic cardiovascular disease Take 1 Tablet by mouth daily. Reorder 03/12/2022 12/11/2022 torsemide (DEMADEX) 20 mg tabletIndications:Essentia l (primary) hypertension Take 1 Tablet by mouth daily. Reorder 12/06/2022 12/11/2022 spironolactone (ALDACTONE) 25 mg tablet TAKE ONE-HALF TABLET BY MOUTH EVERY DAY Reorder 12/10/2022 12/11/2022 documented as of this encounter Care Teams Public Address System Installer Relationship Specialty Start Date End Date Jannette Perales NP [address] [place] [phone] PCP - General 11/13/17 Luis Elaine MD [address] [place] [address] [address] Cardiovascular Disease 03/05/22 documented as of this encounter
--- OUTSIDE RECORDS SUMMARY | 2024-07-09 00:16 | XMS_ITS | Encounter Summary ---
Author Organization [facility] Address [address] [place] [address] Care Team Providers Care Candle Maker Name Role Phone Jannette Perales NP Primary Care Provider [phone] Luis Elaine MD Unavailable [phone] Reason for Visit * Reason Comments Medications Refill Encounter Details Date Type Department Care Team ([facility] st Contact Info) Description 02/24/2024 Refill [facility] Adult [facility] - [place] [address] [place] [address] Jannette Perales NP [address] [place] [address] Medications Refill Social History Tobacco Use Types Packs/Day Years [...] place to sleep or slept in a usp (including now)? No 2021 Interpersonal Safety Answer [...] Date End Date torsemide (DEMADEX) 20 mg tabletIndications:E ssential (primary) hypertension Take 1 Tablet by mouth daily. 90 Tablet 1 02/25/2024 documented in this encounter Miscellaneous Notes * Telephone Encounter - Charlotte Moreno - 02/25/2024 1450 EDT Called pt to schedule AWV however pt stated she would not be able to schedule yet and would call back when she was ready. * Telephone Encounter - Camden Lomeli RN - 02/25/2024 1401 EDT Due for Wellness visit (labs in Epic if able to do prior, they 06/13/24). Rx to provider. * Telephone Encounter - Camden Lomeli RN - 02/25/2024 1400 EDT Medication(s) Requested: torsemide Preferred Pharmacy: [facility] Are visits in compliance? No Last Refill Date: 03/11/23 for 90 w/ 3 Recent Visits Date Type Provider Dept 06/13/23 Office Visit Jannette Perales NP [facility] [place] [place] [facility] [place] 12/11/22 Office Visit Jannette Perales NP [facility] [place] [place] [facility] [place] Showing recent visits within past 540 days with a meds authorizing provider and meeting all other requirements Future Appointments No visits were found meeting these conditions. Showing future appointments within next 150 days with a meds authorizing provider and meeting all other requirements CAMDEN LOMELI RN 02/25/2024 14:00 documented in this encounter Plan of Treatment Not on file documented as of this encounter Visit Diagnoses Diagnosis Essential (primary) hypertension Unspecified essential hypertension documented in this encounter Discontinued Medications Medication Sig Discontinue Reason Start Date End Da te torsemide (DEMADEX) 20 mg tabletIndications:Essenti al (primary) hypertension Take 1 Tablet by mouth daily. 03/11/2023 02/25/2024 documented as of this encounter Care Teams Candle Maker Relationship Specialty Start Date End Date Jannette Perales NP [address] [place] [phone] PCP - General 11/13/17 Luis Elaine MD [address] [place] [address] [address] [place] [phone] Cardiovascular Disease 03/05/22 documented as of this encounter
--- OUTSIDE RECORDS SUMMARY | 2024-07-09 00:16 | XMS_ITS | Encounter Summary ---
Author Organization [facility] Address [address] [place] [address] Care Team Providers Care Screed Operator Name Role Phone Jannette Perales NP Primary Care Provider [phone] Luis Elaine MD Unavailable [phone] Reason for Visit * Reason Comments Other Encounter Details Date Type Department Care Team ([facility] st Contact Info) Description 03/10/2022 Refill [facility] Adult Primary [facility] - [place] [address] [place] [address] Jannette Perales NP [address] [place] [phone] Other Social History Tobacco Use [...] place to sleep or slept in a [facility] (including now)? No 2021 Interpersonal Safety Answer Date Record ed How often does anyone, inclroz maxx family, hit, punch or physically hurt you? Never 2021 How often does anyone, inclroz maxx family, insult, scream, curse or threaten to hurt you? Never 2021 Comments Unknown Sex and Gender Information Value Date Recorded Sex Assigned at Not on file Legal Sex Female 18:07 EST Gender Identity Female 02/07/2020 10:33 EDT Sexual Orientation Not on file documented as of this encounter Ordered Prescriptions Prescription Sig Dispense Quantity Refills Last Filled Start Date End Date atorvastatin (LIPITOR) 20 mg tabletIndications:Ar teriosclerotic cardiovascular disease Take 1 Tablet by mouth daily. 90 Tablet 3 03/12/2022 3 allopurinoL (ZYLOPRIM) 100 mg tabletIndications:Hy peruricemia Take 1 Tablet by mouth daily. 90 Tablet 3 03/12/2022 3 documented in this encounter Miscellaneous Notes * Telephone Encounter - Lora Núñez RN - 03/12/2022 0725 EDT Scripts escribed documented in this encounter Plan of Treatment Not on file documented as of this encounter Visit Diagnoses Diagnosis Hyperuricemia Other abnormal blood chemistry Arteriosclerotic cardiovascular disease Unspecified cardiovascular disease documented in this encounter Discontinued Medications Medication Sig Discontinue Reason Start Date End Da te atorvastatin (LIPITOR) 20 mg tabletIndications:Arterios clerotic cardiovascular disease TAKE ONE TABLET BY MOUTH EVERY DAY 03/21/2021 03/12/2022 allopurinoL (ZYLOPRIM) 100 mg tabletIndications:Hyperuri cemia TAKE ONE TABLET BY MOUTH EVERY DAY 06/19/2021 03/12/2022 documented as of this encounter Care Teams Screed Operator Relationship Specialty Start Date End Date Jannette Perales NP [address] [place] [phone] PCP - General 11/13/17 Luis Elaine MD [address] [place] [phone] Cardiovascular Disease 03/05/22 documented as of this encounter
--- OUTSIDE RECORDS SUMMARY | 2024-07-09 00:16 | XMS_ITS | Encounter Summary ---
Author Organization [facility] Address [address] [place] [address] Care Team Providers Care Director Of Sustainability Programs Name Role Phone Jannette Perales NP Primary Care Provider [phone] Reason for Visit * Laboratory Services (Routine/Next Available) - New Request Specialty Diagnoses / Procedures Referred By Max page Referred To Contact Diagnoses Routine medical exam Mixed hyperlipidemia Procedures LIPID PROFILE (INCLUDES CHOLESTEROL, TRIGLYCERIDES, HDL, LDL) Jannette Perales NP Phone: tel: fax: Referral ID Status Reason Start Date Expiration Date V isits Requested Visits Authorized [id number] New Request 09/16/2020 1 1 Encounter Details Date Type Department Care Team (Late st Contact Info) Description 09/15/2021 8:55 EST Phlebotomy Only [facility] - Outpatient Phlebotomy Drawing [address] [place] [address] Lab, [facility] [place] Phlebotomy Routine medical exam; Mixed hyperlipidemia; Gastroesophageal reflux disease without esophagitis; Stage 3a chronic kidney disease (HCC); Screening for viral disease Social History Tobacco Use Types Packs/Day Years [...] on file documented as of this encounter Plan of Treatment Not on file documented as of this encounter Procedures Procedure Name Priority Date/Time Associated Diagnosis Comments HEPATITIS C AB W REFLEX TO HCV RNA BY PCR Add-On 09/15/2021 9:01 EST Screening for viral disease COMPLETE BLOOD COUNT AND DIFFERENTIAL Routine 09/15/2021 9:01 EST Routine medical exam Stage 3a chronic kidney disease (HCC) LIPID PROFILE (INCLUDES CHOLESTEROL, TRIGLYCERIDES, HDL, LDL) Routine 09/15/2021 9:01 EST Routine medical exam Mixed hyperlipidemia COMPREHENSIVE METABOLIC PANEL (CMP) Routine 09/15/2021 9:01 EST Routine medical exam Gastroesophageal reflux disease without esophagitis Stage 3a chronic kidney disease (HCC) documented in this encounter Results * HEPATITIS C AB W REFLEX TO HCV RNA BY PCR (09/15/2021 9:01 EST) Pathologist [facility] Hep C Antibody Negative Negative 09/17/2021 13:41 [facility] Blood VENOUS BLOOD / Unknown Venipuncture / Unknown 09/15/2021 9:01 EST 09/15/2021 9:10 EST us Jannette Perales PIECE DYER CHEMISTRY & BLOOD GAS ORDERABLES Final Result Performing Organization Address City/State/[facility] Co de Phone Number [facility] [address] [place], [place] [id number] * COMPLETE BLOOD COUNT AND DIFFERENTIAL (09/15/2021 9:01 EST) Pathologist [facility] WBC 5.88 4.00 - 12.40 K/cmm 09/15/2021 9:21 [facility] RBC 4.46 3.86 - 5.04 M/cmm 09/15/2021 9:21 [facility] Hemoglobin 13.7 11.6 - 15.2 gm/dL 09/15/2021 9:21 [facility] HCT 42.6 34.9 - 44.4 % 09/15/2021 9:21 [facility] MCV 96 81 - 98 fl 09/15/2021 9:21 [facility] MCH 30.7 26.7 - 33.3 pg 09/15/2021 9:21 [facility] MCHC 32.2 32.1 - 35.9 gm/dL 09/15/2021 9:21 [facility] RDW-CV 13.8 <14.7 % 09/15/2021 9:21 [facility] RDW-SD 48.6 <50.4 fl 09/15/2021 9:21 [facility] PLT 220 141 - 377 K/cmm 09/15/2021 9:21 [facility] MPV 11.0 9.5 - 12.7 fl 09/15/2021 9:21 [facility] % Neutrophils 61.3 % 09/15/2021 9:21 [facility] % Lymphocytes 24.7 % 09/15/2021 9:21 [facility] % Monocytes 9.2 % 09/15/2021 9:21 [facility] % Eosinophils 3.9 % 09/15/2021 9:21 [facility] % Basophils 0.7 % 09/15/2021 9:21 [facility] % Immature Grans 0.2 % 09/15/19 9:21 [facility] Absolute Neutrophils 3.61 2.20 - 8.85 K/cmm 09/15/2021 9:21 [facility] Absolute Lymphocytes 1.45 1.09 - 3.30 K/cmm 09/15/2021 9:21 [facility] Absolute Monocytes 0.54 0.10 - 0.80 K/cmm 09/15/2021 9:21 [facility] Absolute Eosinophils 0.23 0.03 - 0.61 K/cmm 09/15/2021 9:21 [facility] ABS Basophils 0.04 0.01 - 0.11 K/cmm 09/15/2021 9:21 [facility] Absolute Immature Grans 0.01 0.00 - 0.06 K/cmm 09/15/2021 9:21 [facility] Type of Differential: Auto 09/15/2021 9:21 [facility] Blood VENOUS BLOOD / Unknown Venipuncture / Unknown 09/15/2021 9:01 EST 09/15/2021 9:09 EST us Jannette Perales NP PACKAGES & DNA PROBE ORDERABLES Final Result [facility] [address] [place] [address] * (ABNORMAL) COMPREHENSIVE METABOLIC PANEL (CMP) (09/15/2021 9:01 EST) Sodium 141 136 - 145 mmol/L 09/15/2021 10:16 [facility] Potassium 4.5 3.5 - 5.0 mmol/L 09/15/2021 10:16 [facility] Chloride 106 96 - 110 mmol/L 09/15/2021 10:16 [facility] CO2 Total 20(L) 22 - 32 mmol/L 09/15/2021 10:16 [facility] Glucose 118(H) 70 - 100 mg/dL 09/15/2021 10:16 [facility] BUN 53(H) 10 - 26 mg/dL 09/15/2021 10:16 [facility] Creatinine 1.65(H) 0.52 - 1.04 mg/dL 09/15/2021 10:16 [facility] eGFR 30(L) >60 mL/min/1.7 3m2 09/15/2021 10:16 [facility] Total Protein 7.4 6.3 - 8.2 g/dL 09/15/2021 10:16 [facility] Albumin 4.8 3.4 - 4.9 g/dL 09/15/2021 10:16 [facility] Alkaline Phosphatase 64 38 - 126 U/L 09/15/2021 10:16 [facility] AST 26 15 - 46 U/L 09/15/2021 10:16 [facility] ALT 14 <35 U/L 09/15/2021 10:16 [facility] Bilirubin, Total 0.5 <1.4 mg/dL 09/15/19 10:16 [facility] Calcium 9.5 8.5 - 10.5 mg/dL 09/15/2021 10:16 [facility] Albumin/Globulin Ratio 1.8 1.0 - 2.5 09/15/2021 10:16 [facility] Anion Gap 15(H) 5 - 14 09/15/2021 10:16 [facility] Blood VENOUS BLOOD / Unknown Venipuncture / Unknown 09/15/2021 9:01 EST 09/15/2021 9:10 EST us Jannette Perales PIECE DYER CHEMISTRY & BLOOD GAS ORDERABLES Final Result Performing Organization Address City/State/[facility] Co de Phone Number [facility] [address] [place] [address] * LIPID PROFILE (INCLUDES CHOLESTEROL, TRIGLYCERIDES, HDL, LDL) (09/15/2021 9:01 EST) Cholesterol 153 See Note mg/dL 09/15/2021 10:16 [facility] Comment: Acceptable: ?<200 mg/dL Borderline High: 200-239 mg/dL High: ?> or = 240 mg/dL HDL 32 See Note mg/dL 09/15/2021 10:16 [facility] Comment: Low: ? <40 mg/dL Normal: ??40-60 mg/dL High: ?>60 mg/dL LDL, Calculated 71 See Note mg/dL 09/15/2021 10:16 [facility] Comment: Optimal: ? <100 mg/dL Near Optimal: ?100-129 mg/dL Borderline High: 130-159 mg/dL High: ?160-189 mg/dL Very High: ? > or = 190 mg/dL Triglyceride 248 See Note mg/dL 09/15/2021 10:16 [facility] Comment: Normal: ? <150 mg/dL Borderline High: ??150 - 199 mg/dL High: ? 200 - 499 mg/dL Very High: ?> or = 500 mg/dL Chol/HDL Ratio 4.8 See Note 09/15/2021 10:16 [facility] Comment: NOTE: Desirable Ratio = <4.1 Patient At Risk Ratio = >5.0(Males) ?>6.0(Females) Non HDL Cholesterol 121 See Note mg/dL 09/15/2021 10:16 [facility] Comment: Desirable: ?<130 mg/dL Borderline High: ??130-159 mg/dL High: ? 160-189 mg/dL Very High: ?> or = 190 mg/dL Blood VENOUS BLOOD / Unknown Venipuncture / Unknown 09/15/2021 9:01 EST 09/15/2021 9:10 EST us Jannette Perales PIECE DYER CHEMISTRY & BLOOD GAS ORDERABLES Final Result Performing Organization Address City/State/[facility] Co de Phone Number [facility] [address] [place] [address] documented in this encounter Visit Diagnoses Diagnosis Routine medical exam Routine general medical examination at a health care facility Mixed hyperlipidemia Gastroesophageal reflux disease without esophagitis Esophageal reflux Stage 3a chronic kidney disease ([facility]) Screening for viral disease Special screening examination for unspecified viral disease documented in this encounter Care Teams Director Of Sustainability Programs Relationship Specialty Start Date End Date Jannette Perales NP [address] [place] [address] PCP - General 11/13/17 documented as of this encounter
--- OUTSIDE RECORDS SUMMARY | 2024-07-09 00:16 | XMS_ITS | Encounter Summary ---
Author Organization [facility] Address [address] [place] [address] Care Team Providers Care 3D Animator Name Role Phone Jannette Perales NP Primary Care Provider [phone] Luis Elaine MD Unavailable [phone] Encounter Details Date Type Department Care Team (Late st Contact Info) Description 06/03/2023 8:45 EST Phlebotomy Only [facility] - Outpatient Phlebotomy Drawing [address] [place] [address] Lab, [facility] [place]lebotomy Essential (primary) hypertension; Routine medical exam; Hyperglycemia; Stage 3b chronic kidney disease ([facility]) Social History Tobacco Use Types Packs/Day Years [...] place to sleep or slept in a residential (including now)? No 2021 Interpersonal Safety Answer Date Record ed How often does anyone, martar[employer] family, hit, punch or physically hurt you? Never 2021 How often does anyone, [employer]ar[employer] family, insult, scream, curse or threaten [...] Procedure Name Priority Date/Time Associated Diagnosis Comments COMPLETE BLOOD COUNT AND DIFFERENTIAL Routine 06/03/2023 8:51 EST Stage 3b chronic kidney disease ([facility]) Routine medical exam HEMOGLOBIN A1C Routine 06/03/2023 8:51 EST Routine medical exam Hyperglycemia BASIC METABOLIC PANEL (BMP) Routine 06/03/2023 8:51 EST Essential (primary) hypertension Routine medical exam documented in this encounter Results * COMPLETE BLOOD COUNT AND DIFFERENTIAL (06/03/2023 8:51 EST) WBC 6.71 4.00 - 12.40 K/cmm 06/03/2023 10:59 EST [facility] RBC 3.88 3.86 - 5.04 M/cmm 06/03/2023 10:59 EST [facility] Hemoglobin 12.1 11.6 - 15.2 g/dL 06/03/2023 10:59 EST [facility] HCT 37.6 34.9 - 44.4 % 06/03/2023 10:59 [facility] MCV 97 81 - 98 fL 06/03/2023 10:59 [facility] MCH 31.2 26.7 - 33.3 pg 06/03/2023 10:59 [facility] MCHC 32.2 32.1 - 35.9 g/dL 06/03/2023 10:59 [facility] RDW-CV 13.5 <14.7 % 06/03/2023 10:59 [facility] RDW-SD 48.0 <50.4 fl 06/03/2023 10:59 [facility] PLT 254 141 - 377 K/cmm 06/03/2023 10:59 [facility] MPV 10.8 9.5 - 12.7 fL 06/03/2023 10:59 [facility] % Neutrophils 71.1 % 06/03/2023 10:59 [facility] % Lymphocytes 17.6 % 06/03/2023 10:59 [facility] % Monocytes 7.9 % 06/03/2023 10:59 [facility] % Eosinophils 2.7 % 06/03/2023 10:59 [facility] % Basophils 0.4 % 06/03/2023 10:59 [facility] % Immature Grans 0.3 % 06/03/20 10:59 [facility] Absolute Neutrophils 4.77 2.20 - 8.85 K/cmm 06/03/2023 10:59 [facility] Absolute Lymphocytes 1.18 1.09 - 3.30 K/cmm 06/03/2023 10:59 [facility] Absolute Monocytes 0.53 0.10 - 0.80 K/cmm 06/03/2023 10:59 [facility] Absolute Eosinophils 0.18 0.03 - 0.61 K/cmm 06/03/2023 10:59 [facility] ABS Basophils 0.03 0.01 - 0.11 K/cmm 06/03/2023 10:59 [facility] Absolute Immature Grans 0.02 0.00 - 0.06 K/cmm 06/03/2023 10:59 [facility] Type of Differential: Auto 06/03/2023 10:59 [facility] Blood VENOUS BLOOD / Unknown Venipuncture / Unknown 06/03/2023 8:51 EST 06/03/2023 10:56 EST Jannette Perales WEB UI DESIGNER PACKAGES & DNA PROBE ORDERABLES Final Result Performing Organization Address [facility] Co de Phone Number [facility] [address] [place] [address] * (ABNORMAL) HEMOGLOBIN A1C (06/03/2023 8:51 EST) Pathologist [facility] Hemoglobin A1c 6.0(H) <5.7 % 06/03/2023 12:31 [facility] Comment: Glycemic Status References: Normal: ??<5.7% Pre-Diabetes: ??5.7% - 6.4% Diagnostic of Diabetes: ??> or = 6.5% (if confirmed) Est Avg Glucose 126 mg/dL 12:31 [facility] Comment:The eAG represents t he A1c result expressed as average glucose in mg/dL. Blood VENOUS BLOOD / Unknown Venipuncture / Unknown 06/03/2023 8:51 EST 06/03/2023 10:56 EST Jannette Perales WEB UI DESIGNER CHEMISTRY & BLOOD GAS ORDERABLES Final Result Performing Organization Address [facility] Co de Phone Number [facility] [address] [place] [address] * (ABNORMAL) BASIC METABOLIC PANEL (BMP) (06/03/2023 8:51 EST) Pathologist [facility] Sodium 142 136 - 145 mmol/L 06/03/2023 10:18 [facility] Potassium 4.3 3.5 - 5.0 mmol/L 06/03/2023 10:18 [facility] Chloride 110 96 - 110 mmol/L 06/03/2023 10:18 [facility] CO2 Total 18(L) 22 - 32 mmol/L 06/03/2023 10:18 [facility] Anion Gap 14 5 - 14 mmol/L 06/03/2023 10:18 [facility] Glucose 94 70 - 99 mg/dl 06/03/2023 10:18 [facility] Calcium 9.1 8.5 - 10.5 mg/dL 06/03/2023 10:18 [facility] BUN 32(H) 10 - 26 mg/dL 06/03/2023 10:18 [facility] Creatinine 1.14(H) 0.52 - 1.04 mg/dL 06/03/2023 10:18 [facility] eGFR 49(L) >60 mL/min/1.73 m2 06/03/2023 10:18 [facility] Blood VENOUS BLOOD / Unknown Venipuncture / Unknown 06/03/2023 8:51 EST 06/03/2023 9:46 EST us Jannette Perales NP CHEMISTRY & BLOOD GAS ORDERABLES Final Result [facility] [address] [place] [address] documented in this encounter Visit Diagnoses Diagnosis Essential (primary) hypertension Unspecified essential hypertension Routine medical exam Routine general medical examination at a health care facility Hyperglycemia Other abnormal glucose Stage 3b chronic kidney disease (HCC-CMS) documented in this encounter Care Teams 3D Animator Relationship Specialty Start Date End Date Jannette Perales NP [address] [place] [address] PCP - General 11/13/17 Luis Elaine MD [address] [facility] [address] [place] [address] Cardiovascular Disease 03/05/22 documented as of this encounter
--- OUTSIDE RECORDS SUMMARY | 2024-07-09 00:16 | XMS_ITS | Encounter Summary ---
Author Organization [facility] Address [address] [place] [address] Care Team Providers Care Woven Paper Hat Mender Name Role Phone Jannette Perales NP Primary Care Provider [phone] Reason for Visit * Reason Comments Medicare Annual Wellness Visit Encounter Details Date Type Department Care Team ([facility] st Contact Info) Description 2021 13:00 EST Office Visit [facility] Adult Primary Care - [place] [address] [place] [address] Jannette Perales NP [address] [place] [address] Routine medical exam (Primary Dx); Screening for viral disease; Essential (primary) hypertension; Mixed hyperlipidemia; Stage 3b chronic kidney disease (HCC); Gastroesophageal reflux disease without esophagitis; S/P cerebral aneurysm repair; S/P coronary artery stent placement; S/P left mastectomy; Diastolic dysfunction; Dysthymia; Need for influenza vaccination; Deviated septum; Toenail deformity Social History Tobacco Use Types Packs/Day Years [...] place to sleep or slept in a detention (including now)? No 2021 Interpersonal Safety Answer [...] Sign Reading Time Taken Comments Blood Pressure 132/62 2021 1255 EST Pulse 61 2021 1255 EST Temperature - - Respiratory Rate 18 2021 1255 EST Oxygen Saturation 99% 2021 1255 EST Inhaled Oxygen Concentration - - Weight 76.7 kg (169 lb) 2021 1255 EST Height 152.4 cm (5') 2021 1255 EST Body Mass Index 33.01 2021 1255 EST documented in this encounter Progress Notes * Jannette Devi NP - 2021 1300 EST Assessment/Plan: Sona is here for an annual wellness visit. We reviewed home safety, function with regards to activities of daily living, advanced directives/end-of-life planning, and exercise. The patient was counseled appropriately. We reviewed vaccines and preventative screenings and the patient was provided with a written summary. Diagnoses and all orders for this visit: Routine medical exam UTD with screenings. After discussing screening guidelines, she would like to discontinue her mammograms. Screening for viral disease - Hepatitis C Ab w Reflex to HCV RNA by PCR; Future Essential (primary) hypertension - Basic Metabolic Panel (BMP); Future Mixed hyperlipidemia Stable Stage 3b chronic kidney disease (HCC) Recent drop in renal function. Will recheck next week. If still running low would consider renal ultrasound. Gastroesophageal reflux disease without esophagitis Stable S/P cerebral aneurysm repair S/P coronary artery stent placement S/P left mastectomy Diastolic dysfunction Followed by cardiology, stable. Has had a drop in renal function, may be due in part to diuretic use. Advised good water/fluid intake. Dysthymia Stable, neg PHQ2 Need for influenza vaccination - Influenza Vaccine Quad High Dose (FLUZONE HIGH DOSE) PF 0.7 ml IM (65 yrs+) Deviated septum Nose has slowly shifted to the left over time. She does have a deviated septum to the left. Shift does not appear to be pathologic. She also has some pink discoloration on top of nose. Recommend dermconsult, possible [place]. Could have treatment to clear precancerous spots. She declines. Toenail deformity Some yellow discoloration and thickening at one edge, right 1st toenail only. It has been growing out, clearing at distal edge. Will continue to watch. If it begins to spread rather than continue to grow out we could try terbinafine x 3 mo, vs daily vicks vaporub or tea tree oil. Health Maintenance Due Topic Date Due ??? Advance Directive Never done ??? Shingles Immunization (1 of 2) Never done Subjective: HPI: Sona is here for a Medicare wellness visit. Her nose has been slowly shifting to the left over years. No pain, no mass. It is a little pink on top, not tender. TOE NAIL CHANGES: Right great toe nail looks thickened and yellow along the medial border. This has been the case forthe last 6 months or so. It has been growing out on it's own over time. Due for flu shot. Renal function drop from baseline. MAMMO: 09/2020 nml, hx L BCA w mastecomy. She would like to stop her mammograms. DXA 09/2020 nml [place] 2007 neg, cologuard 09/2020 negative. AD: Given forms today ?? SOCIAL: Her has been diagnosed with a progressive neurologic disease. He has been stable lately. Sona is less active since she is caretaking her more. ?? Review of Systems Reviewed wellness screening questions; see scanned form. Patient Active Problem List Diagnosis ??? Gastroesophageal reflux disease without esophagitis ??? CKD (chronic kidney disease) stage 3, GFR 30-59 ml/min ([facility]) ??? Depression ??? Diastolic dysfunction ??? Essential (primary) hypertension ??? Exertional dyspnea ??? Glaucoma ??? Hyperlipidemia ??? Hyperuricemia ??? Impaired glucose tolerance ??? Insomnia ??? Knee pain ??? Obstructive sleep apnea ??? Arteriosclerotic cardiovascular disease ??? Osteopenia ??? Other fatigue ??? Tear of right supraspinatus tendon ??? Status post hip replacement ??? S/P rotator cuff surgery ??? S/P tonsillectomy ??? S/P hysterectomy ??? S/P left mastectomy ??? S/P coronary artery stent placement ??? S/P cerebral aneurysm repair ??? Pseudophakia of both eyes ??? Pigmentary glaucoma of both eyes ??? Acute spont subarachnoid intracranial hemorrhage d/t cerebral aneurysm ([facility]) Outpatient Medications Marked as Taking for the 09/20/21 encounter (Office Visit) with Jannette Devi NP Medication Sig Dispense Refill ??? allopurinoL (ZYLOPRIM) 100 mg tablet TAKE ONE TABLET BY MOUTH EVERY DAY 90 Tablet 2 ??? aspirin (ASPIRIN LOW DOSE) 81 mg EC tablet Take 81 mg by mouth daily. ??? atorvastatin (LIPITOR) 20 mg tablet TAKE ONE TABLET BY MOUTH EVERY DAY 90 Tablet 3 ??? brinzolamide (AZOPT) 1 % ophthalmic suspension Place 1 Drop into both eyes 2 times daily. ??? cholecalciferol, Vitamin D3, 1,000 unit tablet Take 1,000 Units by mouth daily. ??? latanoprost (XALATAN) 0.005 % ophthalmic solution PLACE ONE DROP INTO BOTH EYES NIGHTLY 11 ??? metoprolol TARtrate (LOPRESSOR) 25 mg tablet TAKE 1/2 TABLET BY MOUTH TWO TIMES A DAY 90 Tablet3 ??? spironolactone (ALDACTONE) 25 mg tablet TAKE 1/2 TABLET BY MOUTH DAILY 45 Tab 3 ??? timolol (TIMOPTIC) 0.5 % ophthalmic solution ??? torsemide (DEMADEX) 20 mg tablet TAKE ONE TABLET BY MOUTH EVERY DAY 90 Tablet 2 ??? ZESTRIL 20 mg tablet TAKE 1/2 TABLET BY MOUTH DAILY 90 Tablet 3 Past Medical History: Diagnosis Date ??? Arthritis Advanced OA bilat knees ??? Cancer (HCC-CMS) ??? Cerebral aneurysm ??? 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 Condition not found Question of gout,05/2014 ??? Heartburn ??? History of left breast cancer s/p left modified mastectomy (saline implant) ??? Hypertension ??? IGT (impaired glucose tolerance) ??? NAFLD (nonalcoholic fatty liver disease) 2004 ??? Right rotator cuff tear 10/2005 s/p repair ??? SAH (subarachnoid hemorrhage) ([facility]) s/p clipping LMCA/ACOM anuerysm ??? Scoliosis s/p Diallo Rods ??? Sleep apnea Past Surgical History: Procedure Laterality Date ??? APPENDECTOMY ??? BRAIN [place] ??? BREAST SURGERY Left mastectomy ??? CORONARY ANGIOPLASTY WITH STENT PLACEMENT 2006 Cath -07 showed 65% mid LAD, 40% prox LCx, mild diffuse, 30% prox RCA and 85% mid RCA (s/p 3.5x18 cypher); LVEF 65% ??? HYSTERECTOMY ??? JOINT REPLACEMENT TKR ??? OTHER SURGICAL HISTORY RTC L ??? OTHER SURGICAL HISTORY RTC R ??? SPINE SURGERY scoliosis ??? TONSILLECTOMY ??? TOTAL HIP ARTHROPLASTY Left THR ??? TOTAL HIP ARTHROPLASTY Right THR Family History Problem Relation Age of Onset ??? Cancer Mother ??? Heart Disease Father ??? Cancer Sister ??? Migraines Sister Social History Socioeconomic History ??? Marital status: Spouse name: Not on file ??? Number of children: Not on file ??? Years of education: Not on file ??? Highest education level: Not on file Occupational History ??? Not on file Tobacco Use ??? Smoking status: Never Smoker ??? Smokeless tobacco: Never Used Substance and Sexual Activity ??? Alcohol use: Yes Alcohol/week: 2.0 standard drinks Types: 2 Cans of beer per week ??? Drug use: No ??? Sexual activity: Not on file Other Topics Concern ??? Not on file Social History Narrative ??? Not on file Social Determinants of Health Financial Resource Strain: Low Risk ??? Difficulty of Paying Living Expenses: Not hard at all Food Insecurity: No Food Insecurity ??? Worried About Running Out of Food in the Last Year: Never true ??? Ran Out of Food in the Last Year: Never true Transportation Needs: No Transportation Needs ??? Lack of Transportation (Medical): No ??? Lack of Transportation (Non-Medical): No Physical Activity: Not on file Stress: Not on file Social Connections: Not on file Objective: VS: Vitals: 09/20/21 1255 BP: 132/62 BP Cuff Location: Right arm BP Patient Position: Sitting BP Cuff Sizes: Adult, regular Pulse: 61 Resp: 18 SpO2: 99% Weight: 76.7 kg (169 lb) Height: 152.4 cm (60) Body mass index is 33.01 kg/m??. Physical Exam: Constitutional: No distress. HEENT: Deviated septum present, top of nose pink. Cardiovascular: Normal rate, regular rhythm and normal heart sounds. Pulmonary/Chest: Effort normal and breath sounds normal. Breast: No dominant mass. Abdominal: Soft. No distension. No mass. No tenderness. Musculoskeletal: No edema. Neurological: Alert. Skin: Skin is warm and dry. R great toe nail with thickening and yellow discoloration are medial border. Psychiatric: Normal mood and affect. Behavior is normal. Speech recognition software was used to complete this progress note. Typographical errors may be present. * Lora Núñez RN - 2021 1300 EST Are you allergic to eggs or chicken protein? No Are you allergic to any vaccine components (Thimerisol)? No Have you ever had a serious reaction to a previous dose of Influenza vaccine? No Do you have a history of Guillain-[place] Syndrome(GBS)? No Do you have Cancer, Leukemia, AIDS, Diabetes or any other immune system problem? No Are you currently ? No documented in this encounter Plan of Treatment Not on file documented as of this encounter Results * (ABNORMAL) BASIC METABOLIC PANEL (BMP) (09/28/2021 8:59 EST) [facility] Sodium 141 136 - 145 mmol/L 09/28/2021 10:07 [facility] Potassium 4.4 3.5 - 5.0 mmol/L 09/28/2021 10:07 [facility] Chloride 105 96 - 110 mmol/L 09/28/2021 10:07 [facility] CO2 Total 24 22 - 32 mmol/L 09/28/2021 10:07 [facility] Anion Gap 12 5 - 14 09/28/2021 10:07 [facility] Glucose 101(H) 70 - 100 mg/dL 09/28/2021 10:07 [facility] Calcium 9.2 8.5 - 10.5 mg/dL 09/28/2021 10:07 [facility] BUN 42(H) 10 - 26 mg/dL 09/28/2021 10:07 [facility] Creatinine 1.25(H) 0.52 - 1.04 mg/dL 09/28/2021 10:07 [facility] eGFR 42(L) >60 mL/min/1.73 m2 09/28/2021 10:07 [facility] Blood VENOUS BLOOD / Unknown Venipuncture / Unknown 09/28/2021 8:59 EST 09/28/2021 9:37 EST Jannette Perales NP CHEMISTRY & BLOOD GAS ORDERABLES Final Result [facility] [address] [place] [address] * HEPATITIS C AB W REFLEX TO HCV RNA BY PCR (09/15/2021 9:01 EST) [facility] Hep C Antibody Negative Negative 09/17/2021 13:41 EST [facility] Blood VENOUS BLOOD / Unknown Venipuncture / Unknown 09/15/2021 9:01 EST 09/15/2021 9:10 EST Jannette Perales NP CHEMISTRY & BLOOD GAS ORDERABLES Final Result [facility] [address] [place] [address] documented in this encounter Visit Diagnoses Diagnosis Routine medical exam- Primary Routine general medical examination at a health care facility Screening for viral disease Special screening examination for unspecified viral disease Essential (primary) hypertension Unspecified essential hypertension Mixed hyperlipidemia Stage 3b chronic kidney disease (HCC-CMS) Gastroesophageal reflux disease without esophagitis Esophageal reflux S/P cerebral aneurysm repair Other postprocedural status S/P coronary artery stent placement Postsurgical percutaneous transluminal coronary angioplasty status S/P left mastectomy Acquired absence of breast and nipple Diastolic dysfunction Heart disease, unspecified Dysthymia Dysthymic disorder Need for influenza vaccination Need for prophylactic vaccination and inoculation against influenza Deviated septum Deviated nasal septum Toenail deformity Unspecified disease of nail documented in this encounter Orders Immunization/Injection Count Last Ordered Date First Ordered Date INFLUENZA VACCINE QUAD HIGH DOSE (FLUZONE HIGH DOSE) PF 0.7 ML IM (65 YRS+) 1 2021 documented in this encounter Care Teams Woven Paper Hat Mender Relationship Specialty Start Date End Date Jannette Perales NP [address] [place] [phone] PCP - General 11/13/17 documented as of this encounter
--- OUTSIDE RECORDS SUMMARY | 2024-07-09 00:16 | XMS_ITS | Encounter Summary ---
Author Organization [facility] Address [address] [place] [address] Care Team Providers Care Vehicle Calibration Engineer Name Role Phone Jannette Perales FLORENCIO Primary Care Provider [phone] Encounter Details Date Type Department Care Team (Late st Contact Info) Description 09/28/2021 8:55 EST Phlebotomy Only [facility] - Outpatient Phlebotomy Drawing [address] [place] [address] Lab, [facility] Op Phlebotomy Essential (primary) hypertension Social History Tobacco Use Types Packs/Day Years [...] Procedure Name Priority Date/Time Associated Diagnosis Comments BASIC METABOLIC PANEL (BMP) Routine 09/28/2021 8:59 EST Essential (primary) hypertension documented in this encounter Results * (ABNORMAL) BASIC METABOLIC PANEL (BMP) (09/28/2021 8:59 EST) Sodium 141 136 - 145 mmol/L 09/28/2021 10:07 [facility] Potassium 4.4 3.5 - 5.0 mmol/L 09/28/2021 10:07 [facility] Chloride 105 96 - 110 mmol/L 09/28/2021 10:07 [facility] CO2 Total 24 22 - 32 mmol/L 09/28/2021 10:07 [facility] Anion Gap 12 5 - 14 09/28/2021 10:07 [facility] Glucose 101(H) 70 - 100 mg/dL 09/28/2021 10:07 [facility] Calcium 9.2 8.5 - 10.5 mg/dL 09/28/2021 10:07 [facility] BUN 42(H) 10 - 26 mg/dL 09/28/2021 10:07 [facility] Creatinine 1.25(H) 0.52 - 1.04 mg/dL 09/28/2021 10:07 [facility] eGFR 42(L) >60 mL/min/1.73 m2 09/28/2021 10:07 [facility] Blood VENOUS BLOOD / Unknown Venipuncture / Unknown 09/28/2021 8:59 EST 09/28/2021 9:37 EST us Jannette Perales NP CHEMISTRY & BLOOD GAS ORDERABLES Final Result [facility] [address] [place] [address] documented in this encounter Visit Diagnoses Diagnosis Essential (primary) hypertension Unspecified essential hypertension documented in this encounter Care Teams Vehicle Calibration Engineer Relationship Specialty Start Date End Date Jannette Perales NP [address] [place] [phone] PCP - General 11/13/17 documented as of this encounter
--- OUTSIDE RECORDS SUMMARY | 2024-07-09 00:16 | XMS_ITS | Encounter Summary ---
Author Organization [facility] Address [address] [place] [address] Care Team Providers Care Metallic Yarn Slitting Machine Operator Name Role Phone Jannette Perales NP Primary Care Provider [phone] Luis Elaine MD Unavailable [phone] Reason for Visit * Reason Comments Medications Refill Encounter Details Date Type Department Care Team ([facility] st Contact Info) Description 11/28/2023 Refill [facility] Adult Primary Care - [place] [address] [place] [address] Jannette Perales NP [address] [place] [address] Medications Refill Social History Tobacco [...] place to sleep or slept in a intermediate (including now)? No 2021 Interpersonal Safety Answer [...] Refills Last Filled Start Date End Date spironolactone (ALDACTONE) 25 mg tabletIndications: Essential (primary) hypertension Take 0.5 Tablets by mouth daily. 45 Tablet 3 11/29/2023 documented in this encounter Miscellaneous Notes * Telephone Encounter - Connor Núñez RN - 11/29/2023 0936 EDT Medication(s) Requested: spironolactone Preferred Pharmacy: [email or web address] Are visits in compliance? Yes Last Refill Date: Recent Visits Date Type Provider Dept 06/13/23 Office Visit Jannette Perales NP [facility] [place] 12/11/22 Office Visit Jannette Perales NP [facility] [place] Showing recent visits within past 540 days with a meds authorizing provider and meeting all other requirements Future Appointments No visits were found meeting these conditions. Showing future appointments within next 150 days with a meds authorizing provider and meeting all other requirements CONNOR NÚÑEZ RN 11/29/2023 9:36 documented in this encounter Plan of Treatment Not on file documented as of this encounter Visit Diagnoses Diagnosis Essential (primary) hypertension- Primary Unspecified essential hypertension documented in this encounter Discontinued Medications Medication Sig Discontinue Reason Start Date End Da te spironolactone (ALDACTONE) 25 mg tablet Take 0.5 Tablets by mouth daily. 12/11/2022 11/29/2023 documented as of this encounter Care Teams Metallic Yarn Slitting Machine Operator Relationship Specialty Start Date End Date Jannette Perales NP [address] [place] [phone] PCP - General 11/13/17 Lusi Elaine MD [address] [place] [address] [phone] Cardiovascular Disease 03/05/22 documented as of this encounter
--- OUTSIDE RECORDS SUMMARY | 2024-07-09 00:16 | XMS_ITS | Encounter Summary ---
Author Organization [facility] Address [address] [place] [address] Care Team Providers Care Research Professor Of Biostatistics Name Role Phone Jannette Perales DOCUMENT CONTROL ASSISTANT Primary Care Provider [phone] Reason for Visit * Reason Comments Other Encounter Details Date Type Department Care Team (Late st Contact Info) Description 12/27/2020 Refill [facility] [address] [place] [address] Keon Delgado MD [address] [place] [address] [place] [address] Other Social History Tobacco Use Types Packs/Day [...] Date End Date spironolactone (ALDACTONE) 25 mg tablet TAKE 1/2 TABLET BY MOUTH DAILY 45 Tab 3 12/28/2020 12/25/2021 documented in this encounter Miscellaneous Notes * Telephone Encounter - Milka Spaulding RN - 12/28/2020 0830 EDT Electronic refill request for spironolactone 25 mg 1/2 tab daily. Last office visit - 01/29/2020, next office visit - 02/07/2021. E-scribed as tabbed. documented in this encounter Plan of Treatment Not on file documented as of this encounter Visit Diagnoses Not on filedocumented in this encounter Discontinued Medications Medication Sig Discontinue Reason Start Date End Da te spironolactone (ALDACTONE) 25 mg tablet TAKE 1/2 TABLET BY MOUTH DAILY 12/31/2019 12/28/2020 documented as of this encounter Care Teams Research Professor Of Biostatistics Relationship Specialty Start Date End Date Jannette Perales NP [address] [place] [phone] PCP - General 11/13/17 documented as of this encounter
--- OUTSIDE RECORDS SUMMARY | 2024-07-09 00:16 | XMS_ITS | Encounter Summary ---
Author Organization [facility] Address [address] [place] [address] Care Team Providers Care Latcher Name Role Phone Jannette Perales NP Primary Care Provider [phone] Luis Elaine MD Unavailable [phone] Reason for Visit * Reason Comments Coronary Artery Disease Encounter Details Date Type Department Care Team (Late st Contact Info) Description 03/06/2022 15:45 EDT Office Visit [facility] [address] [place] [address] Luis Elaine MD [address] [facility] [address] [place] [address] S/P coronary artery stent placement (Primary Dx); Atherosclerosis of [place] coronary artery of [place] heart without angina pectoris; ACC/AHA stage C heart failure with preserved ejection fraction (HCC-CMS) (HCC); Essential hypertension Social History Tobacco Use Types Packs/Day [...] place to sleep or slept in a chcf (including now)? No 2021 Interpersonal Safety Answer [...] Sign Reading Time Taken Comments Blood Pressure 128/64 03/06/2022 1530 EDT Pulse 67 03/06/2022 1530 EDT Temperature - - Respiratory Rate - - Oxygen Saturation 97% 03/06/2022 1530 EDT Inhaled Oxygen Concentration - - Weight 73.9 kg (163 lb) 03/06/2022 1530 EDT Height 152.4 cm (5') 03/06/2022 1530 EDT Body Mass Index 31.83 03/06/2022 1530 EDT documented in this encounter Progress Notes * Luis Elaine MD - 03/06/2022 1545 EDT [facility] CARDIOLOGY FOLLOW-UP Date of Service: 03/06/2022 Reason for Visit: S/P coronary artery stent placement [Z95.5] ASSESSMENT 1. CAD s/p PCI 2006 No angina or heart failure. Excellent lipid profile 2. HFpEF stage C Volume status optimized. 3. HTN Controlled. 4. S/p brain aneurysm repair No TIA or CVA s/s. PLAN Continue current regimen Follow-up 1 year, no testing SUBJECTIVE Sona Rodrigez, 1945 76 y.o. woman with brain aneurysm s/p clipping in the , YOLANDA on CPAP, gout, HTN, HFpEF and CADs/p RCA PCI 2006. Sona Rodrigez comes in today feeling well. She denies any cardiac s/s. She gardens and performs house hold chores w/o cardiopulmonary limitations. She has chronic dependent edema controlled w/ torsemide. Patient denies CP, SOB, PND, palpitations, syncope, bleeding, GI or stroke symptoms. Past Surgical History: Procedure Laterality Date ??? APPENDECTOMY ??? BRAIN SURGERY cerebral aneurysm repair ([facility]) ??? BREAST SURGERY Left mastectomy ??? CORONARY [...] THR ??? TOTAL HIP ARTHROPLASTY Right THR Outpatient Medications Marked as Taking for the 03/06/22 encounter (Office Visit) with Luis Elaine MD Medication Sig ??? allopurinoL (ZYLOPRIM) 100 mg tablet TAKE ONE TABLET BY MOUTH EVERY DAY ??? aspirin (ASPIRIN LOW DOSE) 81 mg EC tablet Take 81 mg by mouth daily. ??? atorvastatin (LIPITOR) 20 mg tablet TAKE ONE TABLET BY MOUTH EVERY DAY ??? brinzolamide (AZOPT) 1 % ophthalmic suspension Place 1 Drop into both eyes 2 times daily. ??? cholecalciferol, Vitamin D3, 1,000 unit tablet Take 1,000 Units by mouth daily. ??? latanoprost (XALATAN) 0.005 % ophthalmic solution PLACE ONE DROP INTO BOTH EYES NIGHTLY ??? metoprolol TARtrate (LOPRESSOR) 25 mg tablet Take 0.5 Tablets by mouth 2 times daily. ??? spironolactone (ALDACTONE) 25 mg tablet TAKE ONE-HALF TABLET BY MOUTH EVERY DAY ??? timolol (TIMOPTIC) 0.5 % ophthalmic solution ??? torsemide (DEMADEX) 20 mg tablet TAKE ONE TABLET BY MOUTH EVERY DAY ??? ZESTRIL 20 mg tablet TAKE 1/2 TABLET BY MOUTH DAILY ALLERGIES: Dilaudid [hydromorphone], Hydrocodone, Oxycodone, and Propine [dipivefrin] FAMILY HX: No premature CAD or brain aneurysm SOCIAL HX: Nonsmoker, rare alcohol ROS: Performed; pertinent positives and negatives as mentioned above. OBJECTIVE Wt Readings from Last 3 Encounters: 03/06/22 73.9 kg (163 lb) 09/20/21 76.7 kg (169 lb) 02/08/21 74.4 kg (164 lb) BP Readings from Last 3 Encounters: 03/06/22 128/64 09/20/21 132/62 02/08/21 110/68 Pulse Readings from Last 3 Encounters: 03/06/22 67 09/20/21 61 02/08/21 59 PHYSICAL EXAMINATION GENERAL: Pleasant, no acute distress. HEENT: Anicteric. NECK: Supple, normal jugular venous pressure. CHEST: Nontender. LUNGS: Clear to auscultation bilaterally, no rhonchi rales or wheezes. HEART: Regular rate and rhythm, normal S1-S2, no murmurs. EXTREM: No cyanosis or edema, equal pulses. SKIN: Warm and dry, no rashes. NEURO: Alert and oriented x3, grossly intact, ambulatory w/ a cane DIAGNOSTIC DATA Available records including laboratory and cardiac studies reviewed; pertinent findings are as follows. Lab Results Component Value Date CREATININE 1.25 (H) 09/28/2021 CALCGFR 42 (L) 09/28/2021 BUN 42 (H) 09/28/2021 NA 141 09/28/2021 CL 105 09/28/2021 K 4.4 09/28/2021 LABALBU 4.8 09/15/2021 ALT 14 09/15/2021 AST 26 09/15/2021 ALKPHOS 64 09/15/2021 TBIL 0.5 09/15/2021 Lab Results Component Value Date HGB 13.7 09/15/2021 PLT 220 09/15/2021 No results found for: NTBNP, TROPONINI, CPK, URICACID, CRP Lab Results Component Value Date CHOL 153 09/15/2021 HDL 32 09/15/2021 LDL 36 (L) 03/01/2020 LDLBASE 71 09/15/2021 TRIG 248 09/15/2021 Lab Results Component Value Date HGBA1C 6.2 (H) 02/10/2019 TSH 0.97 01/07/2017 Echocardiogram 2016: EF 60-65%, DD w/ elevated LAP. Normal RV. Trivial AI. SPAP 25 mmHg. Stress test 2016: Normal, EF 75% ORDERS/MEDICATION CHANGES No orders of the defined types were placed in this encounter. There are no discontinued medications. No orders of the defined types were placed in this encounter. Luis Elaine MD, PhD documented in this encounter Plan of Treatment Not on file documented as of this encounter Visit Diagnoses Diagnosis S/P coronary artery stent placement- Primary Postsurgical percutaneous transluminal coronary angioplasty status Atherosclerosis of pilot station coronary artery of pilot station heart without angina pectoris ACC/AHA stage C heart failure with preserved ejection fraction (HCC-CMS) Essential hypertension Unspecified essential hypertension documented in this encounter Care Teams Latcher Relationship Specialty Start Date End Date Jannette Perales NP [address] [place] [phone] PCP - General 11/13/17 Luis Elaine MD [address] [place] [address] [address] [place] [phone] Cardiovascular Disease 03/05/22 documented as of this encounter
--- OUTSIDE RECORDS SUMMARY | 2024-07-09 00:16 | XMS_ITS | Encounter Summary ---
Author Organization [facility] Address [address] [place] [address] Care Team Providers Care Application Chemist Name Role Phone Jannette Perales NP Primary Care Provider [phone] Reason for Visit * Reason Onset Date Comments Labs Only 09/28/2021 Encounter Details Date Type Department Care Team (Late st Contact Info) Description 09/28/2021 Telephone [facility] Adult Primary Care - [place] [address] [place] [address] Jannette Perales NP [address] [place] [address] Labs Only Social History Tobacco Use Types Packs/Day Years [...] place to sleep or slept in a senior living (including now)? No 2021 Interpersonal Safety Answer Date Record ed How often does anyone, jennifer lilly family, hit, punch or physically hurt you? Never 2021 How often does anyone, inclroz lilly family, insult, scream, curse or threaten to hurt you? Never 2021 Comments Unknown Sex and Gender Information Value Date Recorded Sex Assigned at Not on file Legal Sex Female 18:07 EST Gender Identity Female 02/07/2020 10:33 EDT Sexual Orientation Not on file documented as of this encounter Miscellaneous Notes * Telephone Encounter - Jenna Cohen LPN - 09/28/2021 1412 EST Pt notified * Telephone Encounter - Jannette Devi NP - 09/28/2021 1300 EST Please let Sona know that her kidney function has improved, back to her baseline. It does look like she could be drinking more water still. But kidney function has improved regardless. We should check again in 6 months. Order is placed. documented in this encounter Plan of Treatment Not on file documented as of this encounter Visit Diagnoses Diagnosis Stage 3b chronic kidney disease (HCC-CMS)- Primary documented in this encounter Care Teams Application Chemist Relationship Specialty Start Date End Date Jannette Perales NP [address] [place] [phone] PCP - General 11/13/17 documented as of this encounter
--- OUTSIDE RECORDS SUMMARY | 2024-07-09 00:16 | XMS_ITS | Encounter Summary ---
Author Organization [facility] Address [address] [place] [address] Care Team Providers Care Cnc Machinist Name Role Phone Jannette Perales NP Primary Care Provider [phone] Luis Elaine MD Unavailable Reason for Visit * Reason Onset Date Comments Labs Only 11/01/2022 Encounter Details Date Type Department Care Team ([facility] st Contact Info) Description 11/01/2022 Telephone [facility] Adult Primary Care - [place] [address] [place] [address] Jannette Perales NP [address] [place] [phone] Labs Only Social History Tobacco [...] place to sleep or slept in a penitentiary (including now)? No 2021 Interpersonal Safety Answer [...] encounter Miscellaneous Notes * Telephone Encounter - Colby Garza - 11/01/2022 1005 EDT 11/01/22 10:05 am Sona called back, notified her that the order has been placed for bloodwork, also called outpatient lab directly and let them know as well. * Telephone Encounter - Vickie Barry - 11/01/2022 0942 EDT Sona is at [facility] lab now, no labs ordered. Needs order placed. documented in this encounter Plan of Treatment Not on file documented as of this encounter Results * (ABNORMAL) BASIC METABOLIC PANEL (BMP) (11/01/2022 10:06 EDT) Sodium 142 136 - 145 mmol/L 11/01/2022 10:53 [facility] Potassium 4.2 3.5 - 5.0 mmol/L 11/01/2022 10:53 [facility] Chloride 108 96 - 110 mmol/L 11/01/2022 10:53 [facility] CO2 Total 20(L) 22 - 32 mmol/L 11/01/2022 10:53 [facility] Anion Gap 14 5 - 14 11/01/2022 10:53 [facility] Glucose 97 70 - 100 mg/dL 11/01/2022 10:53 [facility] Calcium 9.0 8.5 - 10.5 mg/dL 11/01/2022 10:53 [facility] BUN 45(H) 10 - 26 mg/dL 11/01/2022 10:53 [facility] Creatinine 1.54(H) 0.52 - 1.04 mg/dL 11/01/2022 10:53 [facility] eGFR 34(L) >60 mL/min/1.73 m2 11/01/2022 10:53 [facility] Blood VENOUS BLOOD / Unknown Venipuncture / Unknown 11/01/2022 10:06 EDT 11/01/2022 10:26 EDT us Jannette Perales NP CHEMISTRY & BLOOD GAS ORDERABLES Final Result [facility] [address] [place] [address] documented in this encounter Visit Diagnoses Diagnosis Routine medical exam- Primary Routine general medical examination at a health care facility Essential (primary) hypertension Unspecified essential hypertension Stage 3b chronic kidney disease (HCC-CMS) documented in this encounter Care Teams Cnc Machinist Relationship Specialty Start Date End Date Jannette Perales NP [address] [place] [phone] PCP - General 11/13/17 Luis Elaine MD [address] [place] [address] [place] [phone] Cardiovascular Disease 03/05/22 documented as of this encounter
--- OUTSIDE RECORDS SUMMARY | 2024-07-09 00:16 | XMS_ITS | Encounter Summary ---
Author Organization [facility] Address [address] [place] [address] Care Team Providers Care Tender Labor Name Role Phone Jannette Perales NP Primary Care Provider [phone] Reason for Visit * Reason Comments Other Encounter Details Date Type Department Care Team ([facility] st Contact Info) Description 06/17/2021 Refill [facility] Adult Primary Care - [place] [address] [place] [address] Jannette Perales NP [address] [place] [address] Other Social History Tobacco Use [...] Refills Last Filled Start Date End Date allopurinoL (ZYLOPRIM) 100 mg tabletIndications: Hyperuricemia TAKE ONE TABLET BY MOUTH EVERY DAY 90 Tablet 2 06/19/2021 03/12/2022 documented in this encounter Miscellaneous Notes * Telephone Encounter - Lora Núñez RN - 06/19/2021 0641 EST Script escribed documented in this encounter Plan of Treatment Not on file documented as of this encounter Visit Diagnoses Diagnosis Hyperuricemia- Primary Other abnormal blood chemistry documented in this encounter Discontinued Medications Medication Sig Discontinue Reason Start Date End Da te allopurinoL (ZYLOPRIM) 100 mg tabletIndications:Hyperu ricemia TAKE ONE TABLET BY MOUTH EVERY DAY 06/24/2020 06/19/2021 documented as of this encounter Care Teams Tender Labor Relationship Specialty Start Date End Date Jannette Perales NP [address] [place] [phone] PCP - General 11/13/17 documented as of this encounter
--- OUTSIDE RECORDS SUMMARY | 2024-07-09 00:16 | XMS_ITS | Encounter Summary ---
Author Organization [facility] Address [address] [place] [address] Care Team Providers Care Professional Housing Consultant Name Role Phone Jannette Perales NP Primary Care Provider [phone] Reason for Visit * Reason Comments Other Encounter Details Date Type Department Care Team ([facility] st Contact Info) Description 03/11/2021 Refill [facility] Adult Primary Care - [place] [address] [place] [address] Jannette Perales NP [address] [place] [phone] Other Social History Tobacco Use [...] Date End Date torsemide (DEMADEX) 20 mg tabletIndications: Essential (primary) hypertension TAKE ONE TABLET BY MOUTH EVERY DAY 90 Tablet 2 03/13/2021 12/11/2021 documented in this encounter Miscellaneous Notes * Telephone Encounter - Lora Núñez RN - 03/13/2021 0725 EDT Script escribed documented in this encounter Plan of Treatment Not on file documented as of this encounter Visit Diagnoses Diagnosis Essential (primary) hypertension- Primary Unspecified essential hypertension documented in this encounter Discontinued Medications Medication Sig Discontinue Reason Start Date End Da te torsemide (DEMADEX) 20 mg tabletIndications:Essentia l (primary) hypertension Take 1 Tab by mouth daily. 06/18/2019 03/13/2021 documented as of this encounter Care Teams Professional Housing Consultant Relationship Specialty Start Date End Date Jannette Perales NP [address] [place] [phone] PCP - General 11/13/17 documented as of this encounter
--- OUTSIDE RECORDS SUMMARY | 2024-07-09 00:16 | XMS_ITS | Encounter Summary ---
Author Organization [facility] Address [address] [place] [address] Care Team Providers Care Aix Architect Name Role Phone Jannette Perales FLORENCIO Primary Care Provider [phone] Reason for Visit * Reason Comments Follow-up yearly Coronary Artery Disease Encounter Details Date Type Department Care Team (Latest Contact Info) Description 02/08/2021 10:15 EDT Office Visit [facility] Cardiology Clinic [address] [place] [address] Luis Elaine MD [address] [place] [address] [address] [place] [address] Arteriosclerotic cardiovascular disease (Primary Dx) Social History Tobacco Use Types Packs/Day Years [...] Sign Reading Time Taken Comments Blood Pressure 110/68 02/08/2021 0959 EDT Pulse 59 02/08/2021 0959 EDT Temperature - - Respiratory Rate - - Oxygen Saturation 96% 02/08/2021 0959 EDT Inhaled Oxygen Concentration - - Weight 74.4 kg (164 lb) 02/08/2021 0959 EDT Height 149.9 cm (4' 11) 02/08/2021 0959 EDT Body Mass Index 33.12 02/08/2021 0959 EDT documented in this encounter Progress Notes * Luis Elaine MD - 02/08/2021 1015 EDT [facility] CARDIOLOGY FOLLOW-UP Date of Service: 02/08/2021 Reason for Visit: Atherosclerosis of [place] coronary artery of [place] heart without angina pectoris[I25.10] Primary Care Provider: Jannette Devi SUBJECTIVE Patient ID: Sona Rodrigez, 1945 HPI 75 y.o. year-old woman with brain aneurysm s/p clipping in the , YOLANDA on CPAP, gout, HTN, prediabtes, HFpEF and CAD s/p RCA PCI 2006. Sona Rodrigez comes in today feeling well. She denies any cardiac s/s. She gardens and performs house hold chores w/o cardiopulmonary limitations. She has chronic dependent edema controlled w/ torsemide. Edema resolves over night Patient denies CP, SOB, PND, palpitations, syncope,focal deficits, bleeding, GI or symptoms. Past Surgical History: Procedure Laterality Date ??? APPENDECTOMY ??? B[place]IN [place] ??? BREAST SURGERY Left mastectomy ??? CORONARY [...] Outpatient Medications Marked as Taking for the 02/08/21 encounter (Office Visit) with Luis Elaine MD Medication Sig ??? allopurinoL (ZYLOPRIM) 100 mg tablet TAKE ONE TABLET BY MOUTH EVERY DAY ??? aspirin (ASPIRIN LOW DOSE) 81 mg EC tablet Take 81 mg by mouth daily. ??? atorvastatin (LIPITOR) 20 mg tablet Take 1 Tab by mouth daily. ??? brinzolamide (AZOPT) 1 % ophthalmic suspension Place 1 Drop into both eyes 2 times daily. ??? cholecalciferol, Vitamin D3, 1,000 unit tablet Take 1,000 Units by mouth daily. ??? latanoprost (XALATAN) 0.005 % ophthalmic solution PLACE ONE DROP INTO BOTH EYES NIGHTLY ??? metoprolol (LOPRESSOR) 25 mg tablet Take 0.5 Tabs by mouth 2 times daily. ??? spironolactone (ALDACTONE) 25 mg tablet TAKE 1/2 TABLET BY MOUTH DAILY ??? timolol (TIMOPTIC) 0.5 % ophthalmic solution ??? torsemide (DEMADEX) 20 mg tablet Take 1 Tab by mouth daily. ??? ZESTRIL 20 mg tablet Take 0.5 Tabs by mouth daily. *BRAND NAME ONLY* ALLERGIES: Dilaudid [hydromorphone], Hydrocodone, Oxycodone, and Propine [dipivefrin] FAMILY HX: No premature CAD or brain aneurysm SOCIAL HX: Nonsmoker, rare alcohol ROS: Performed; pertinent positives and negatives as mentioned above. OBJECTIVE VITAL SIGNS Wt Readings from Last 3 Encounters: 02/08/21 74.4 kg (164 lb) 09/15/20 75.8 kg (167 lb) 03/07/20 74.8 kg (165 lb) BP Readings from Last 3 Encounters: 02/08/21 110/68 09/15/20 (!) 142/90 03/07/20 124/64 Pulse Readings from Last 3 Encounters: 02/08/21 59 09/15/20 62 03/07/20 54 PHYSICAL EXAM GENERAL: Pleasant, no acute distress. HEENT: Anicteric. NECK: Supple, normal jugular venous pressure. CHEST: Nontender. LUNGS: Clear to auscultation bilaterally, no rhonchi rales or wheezes. HEART: Regular rate and rhythm, normal S1-S2, no murmurs. EXTREM: No clubbing, cyanosis, edema, equal pulses. SKIN: Warm and dry, no rashes. NEURO: Alert and oriented x3, grossly intact DIAGNOSTIC DATA Available records including laboratory and cardiac studies reviewed; pertinent findings are as follows. Lab Results Component Value Date HGB 13.0 01/07/2017 PLT 213 01/07/2017 No results found for: INR Lab Results Component Value Date CREATININE 1.38 (H) 09/07/2020 CALCGFR 37 09/07/2020 NA 141 09/07/2020 K 4.3 09/07/2020 No results found for: ALB, ALT, AST, GGT, ALKPHOS, BILITOT No results found for: TROPONINI, NTBNP Lab Results Component Value Date CHOL 118 03/01/2020 HDL 41 03/01/2020 LDL 36 (L) 03/01/2020 TRIG 205 03/01/2020 Lab Results Component Value Date HGBA1C 6.2 (H) 02/10/2019 TSH 0.97 01/07/2017 No results found for: IRON, FERRITIN, TRANSFERRIN, TIBC Echocardiogram 2016: EF 60-65%, DD w/ elevated LAP. Normal RV. Trivial AI. SPAP 25 mmHg. Stress test 2016: Normal, EF 75% ASSESSMENT & PLAN 1. CAD s/p PCI 2006 No angina or heart failure. Excellent lipid profile. Bradycardic on metoprolol and timolol - continue asa - continue rosuvastatin - continue metoprolol; if symptomatic bradycardia stop it. 2. HTN Controlled. - continue lisinopril 3. Prediabtes Controlled. 4. HFPEF stage C Volume status optimized. - continue torsemide - continue spironolactone 5. S/p brain aneurysm repair No TIA or CVA s/s. Follow-up 1 year, no testing Luis Elaine MD, PhD No orders of the defined types were placed in this encounter. documented in this encounter Plan of Treatment Not on file documented as of this encounter Visit Diagnoses Diagnosis Arteriosclerotic cardiovascular disease- Primary Unspecified cardiovascular disease documented in this encounter Care Teams Aix Architect Relationship Specialty Start Date End Date Jannette Perales NP [address] [place] [phone] PCP - General 11/13/17 documented as of this encounter
--- OUTSIDE RECORDS SUMMARY | 2024-07-09 00:16 | XMS_ITS | Encounter Summary ---
Author Organization [facility] Address [address] [place] [address] Care Team Providers Care Allergist Name Role Phone Jannette Perales NP Primary Care Provider [phone] Luis Elaine MD Unavailable [phone] Reason for Visit * Reason Comments Medications Refill Encounter Details Date Type Department Care Team ([facility] st Contact Info) Description 08/17/2022 Refill [facility] Adult Primary Care - [place] [address] [place] [address] Jannette Perales NP [address] [place] [phone] Medications Refill Social History Tobacco [...] place to sleep or slept in a half-way (including now)? No 2021 Interpersonal Safety Answer [...] Refills Last Filled Start Date End Date ZESTRIL 20 mg tabletIndications: Essential (primary) hypertension Take 0.5 Tablets by mouth daily. 90 Tablet 3 08/20/2022 4 documented in this encounter Miscellaneous Notes * Telephone Encounter - Connor Núñez RN - 08/20/2022 9209 EST Medication(s) Requested: zestril Preferred Pharmacy: [email or web address] Are visits in compliance? Yes Last Refill Date: 05/21/22 Script escribed Recent Visits Date Type Provider Dept 09/20/21 Office Visit Jannette Devi NP [facility] [place] Showing recent visits within past 540 days with a meds authorizing provider and meeting all other requirements Future Appointments Date Type Provider Dept 09/24/22 Appointment Jannette Devi NP [facility] [place] Showing future appointments within next 150 days with a meds authorizing provider and meeting all other requirements CONNOR NÚÑEZ RN 08/20/2022 7:31 documented in this encounter Plan of Treatment Not on file documented as of this encounter Visit Diagnoses Diagnosis Essential (primary) hypertension- Primary Unspecified essential hypertension documented in this encounter Discontinued Medications Medication Sig Discontinue Reason Start Date End Da te ZESTRIL 20 mg tabletIndications:Evelin al (primary) hypertension TAKE 1/2 TABLET BY MOUTH DAILY 05/27/2021 08/20/2022 documented as of this encounter Care Teams Allergist Relationship Specialty Start Date End Date Jannette Perales NP [address] [place] [phone] PCP - General 11/13/17 Luis Elaine MD [address] [place] [phone] Cardiovascular Disease 03/05/22 documented as of this encounter
--- OUTSIDE RECORDS SUMMARY | 2024-07-09 00:16 | XMS_ITS | Encounter Summary ---
Author Organization [facility] Address [address] [place] [address] Care Team Providers Care Line Inspector Name Role Phone Jannette Perales NP Primary Care Provider [phone] Luis Elaine MD Unavailable [phone] Reason for Visit * Reason Comments Other Encounter Details Date Type Department Care Team (Late st Contact Info) Description 12/22/2021 Refill [facility] [address] [place] [address] Luis Elaine MD [address] [facility] [address] [place] [address] Other Social History Tobacco Use [...] Date Record ed How often does anyone, inclu maxx family, hit, punch or physically hurt [...] Date spironolactone (ALDACTONE) 25 mg tablet TAKE ONE-HALF TABLET BY MOUTH EVERY DAY 45 Tablet 3 12/25/2021 12/10/2022 documented in this encounter Plan of Treatment Not on file documented as of this encounter Visit Diagnoses Not on filedocumented in this encounter Discontinued Medications Medication Sig Discontinue Reason Start Date End Da te spironolactone (ALDACTONE) 25 mg tablet TAKE 1/2 TABLET BY MOUTH DAILY 12/28/2020 12/25/2021 documented as of this encounter Care Teams Line Inspector Relationship Specialty Start Date End Date Jannette Perales NP [address] [place] [address] PCP - General 11/13/17 Luis Elaine MD [address] [place] [address] [address] Cardiovascular Disease 03/05/22 documented as of this encounter
--- OUTSIDE RECORDS SUMMARY | 2024-07-09 00:16 | XMS_ITS | Encounter Summary ---
Author Organization [facility] Address [address] [place] [address] Care Team Providers Care Area Development Manager Name Role Phone Jannette Perales NP Primary Care Provider [phone] Luis Elaine MD Unavailable [phone] Reason for Visit * Reason Comments Medications Refill Encounter Details Date Type Department Care Team ([facility] st Contact Info) Description 12/04/2022 Refill [facility] Adult [facility] - [place] [address] [place] [address] Jannette Perales NP [address] [place] [address] Medications Refill Social History Tobacco [...] place to sleep or slept in a mcc (including now)? No 2021 Interpersonal Safety Answer [...] (DEMADEX) 20 mg tabletIndications: Essential (primary) hypertension Take 1 Tablet by mouth daily. 90 Tablet 12/06/2022 12/11/2022 documented in this encounter Miscellaneous Notes * Telephone Encounter - Leyda Salazar - 12/06/2022 0914 EDT appt made 12/11/22 for a med f/u * Telephone Encounter - Keyshawn Lomeli RN - 12/06/2022 1471 EDT Has canceled last two appointments for wellness visits. I've pended 180 days. Please review/sign ifappropriate and route to PSS with scheduling instruction. * Telephone Encounter - Keyshawn Lomeli RN - 12/06/2022 0832 EDT Medication(s) Requested: Torsemide Preferred Pharmacy: [facility] Are visits in compliance? No Last Refill Date: 12/21/21 for 90 w/ 3 Recent Visits Date Type Provider Dept 09/20/21 Office Visit Jannette Devi NP [facility] [place] Showing recent visits within past 540 days with a meds authorizing provider and meeting all other requirements Future Appointments No visits were found meeting these conditions. Showing future appointments within next 150 days with a meds authorizing provider and meeting all other requirements Lab Results Component Value Date CREATININE 1.54 (H) 11/01/2022 KEYSHAWN LOMELI RN 12/06/2022 8:32 documented in this encounter Plan of Treatment Not on file documented as of this encounter Visit Diagnoses Diagnosis Essential (primary) hypertension- Primary Unspecified essential hypertension documented in this encounter Discontinued Medications Medication Sig Discontinue Reason Start Date End Da te torsemide (DEMADEX) 20 mg tabletIndications:Essenti al (primary) hypertension TAKE ONE TABLET BY MOUTH EVERY DAY 12/11/2021 12/06/2022 documented as of this encounter Care Teams Area Development Manager Relationship Specialty Start Date End Date Jannette Perales NP [address] [place] [phone] PCP - General 11/13/17 Luis Elaine MD [address] [place] [address] [address] [place] [phone] Cardiovascular Disease 03/05/22 documented as of this encounter
--- OUTSIDE RECORDS SUMMARY | 2024-07-09 00:16 | XMS_ITS | Encounter Summary ---
Author Organization [facility] Address [address] [place] [address] Care Team Providers Care Medical Logistics Specialist Name Role Phone Jannette Perales NP Primary Care Provider [phone] Reason for Visit * Reason Comments Other Encounter Details Date Type Department Care Team ([facility] st Contact Info) Description 03/20/2021 Refill [facility] Adult Primary [facility] - [place] [address] [place] [address] Jannette Perales NP [address] [place] [address] Other Social History Tobacco Use [...] (LIPITOR) 20 mg tabletIndications:Ar teriosclerotic cardiovascular disease TAKE ONE TABLET BY MOUTH EVERY DAY 90 Tablet 3 03/21/2021 2 documented in this encounter Miscellaneous Notes * Telephone Encounter - Lora Núñez RN - 03/21/2021 0732 EDT Script escribed documented in this encounter Plan of Treatment Not on file documented as of this encounter Visit Diagnoses Diagnosis Arteriosclerotic cardiovascular disease- Primary Unspecified cardiovascular disease documented in this encounter Discontinued Medications Medication Sig Discontinue Reason Start Date End Da te atorvastatin (LIPITOR) 20 mg tabletIndications:Arteriosc lerotic cardiovascular disease Take 1 Tab by mouth daily. 03/27/2020 03/21/2021 documented as of this encounter Care Teams Medical Logistics Specialist Relationship Specialty Start Date End Date Jannette Perales NP [address] [place] [phone] PCP - General 11/13/17 documented as of this encounter
--- OUTSIDE RECORDS SUMMARY | 2024-07-09 00:16 | XMS_ITS | Encounter Summary ---
Author Organization [facility] Address [address] [place] [address] Care Team Providers Care Senior Lead Java Developer Name Role Phone Jannette Perales NP Primary Care Provider [phone] Luis Elaine MD Unavailable [phone] Reason for Visit * Reason Comments Medications Refill Encounter Details Date Type Department Care Team ([facility] st Contact Info) Description 11/21/2023 Refill [facility] Adult Primary [facility] - [place] [address] [place] [address] Jannette Perales NP [address] [place] [address] Medications Refill Social History Tobacco [...] Refills Last Filled Start Date End Date traZODone (DESYREL) 50 mg tabletIndications:P rimary insomnia Take 1 Tablet by mouth at bedtime. 90 Tablet 3 11/22/2023 documented in this encounter Miscellaneous Notes * Telephone Encounter - Connor Núñez RN - 11/22/2023 0715 EDT Medication(s) Requested: trazodone Preferred Pharmacy: [email or web address] Are visits in compliance? Yes Last Refill Date: Script escribed Recent Visits Date Type Provider Dept 06/13/23 Office Visit Jannette Perales NP [facility] [place] 12/11/22 Office Visit Jannette Perales NP [facility] Showing recent visits within past 540 days with a meds authorizing provider and meeting all other requirements Future Appointments No visits were found meeting these conditions. Showing future appointments within next 150 days with a meds authorizing provider and meeting all other requirements CONNOR NÚÑEZ RN 11/22/2023 7:15 documented in this encounter Plan of Treatment Not on file documented as of this encounter Visit Diagnoses Diagnosis Primary insomnia- Primary Persistent disorder of initiating or maintaining sleep documented in this encounter Discontinued Medications Medication Sig Discontinue Reason Start Date End Da te traZODone (DESYREL) 50 mg tabletIndications:Primar y insomnia Take 1 Tablet by mouth at bedtime. 12/11/2022 11/22/2023 documented as of this encounter Care Teams Senior Lead Java Developer Relationship Specialty Start Date End Date Jannette Perales NP [address] [place] [phone] PCP - General 11/13/17 Luis Elaine MD [address] [place] [address] [phone] Cardiovascular Disease 03/05/22 documented as of this encounter
--- OUTSIDE RECORDS SUMMARY | 2024-07-09 00:16 | XMS_ITS | Encounter Summary ---
Author Organization [facility] Address [address] [place] [address] Care Team Providers Care Credit Card Clerk Name Role Phone Jannette Perales NP Primary Care Provider [phone] Reason for Visit * Reason Comments Other Encounter Details Date Type Department Care Team ([facility] st Contact Info) Description 12/07/2021 Refill [facility] Adult Primary [facility] - [place] [address] [place] [address] Jannette Perales NP [address] [place] [address] Other Social History Tobacco Use [...] place to sleep or slept in a long-term (including now)? No 2021 Interpersonal Safety Answer [...] BY MOUTH EVERY DAY 90 Tablet 3 12/11/2021 12/06/2022 documented in this encounter Miscellaneous Notes * Telephone Encounter - Lora Núñez RN - 12/11/2021 1252 EDT Script escribed documented in this encounter Plan of Treatment Not on file documented as of this encounter Visit Diagnoses Diagnosis Essential (primary) hypertension- Primary Unspecified essential hypertension documented in this encounter Discontinued Medications Medication Sig Discontinue Reason Start Date End Da te torsemide (DEMADEX) 20 mg tabletIndications:Essenti al (primary) hypertension TAKE ONE TABLET BY MOUTH EVERY DAY 03/13/2021 12/11/2021 documented as of this encounter Care Teams Credit Card Clerk Relationship Specialty Start Date End Date Jannette Perales NP [address] [place] [phone] PCP - General 11/13/17 documented as of this encounter
--- OUTSIDE RECORDS SUMMARY | 2024-07-09 00:16 | XMS_ITS | Encounter Summary ---
Author Organization [facility] Address [address] [place] [address] Care Team Providers Care Bag Machine Set Up Operator Name Role Phone Jannette Perales NP Primary Care Provider [phone] Luis Elaine MD Unavailable [phone] Reason for Visit * Reason Comments Coronary Artery Disease Encounter Details Date Type Department Care Team (Late st Contact Info) Description 03/06/2023 10:45 EDT Office Visit [facility] [address] [place] [address] Luis Elaine MD [address] [facility] [address] [place] [address] CAD in [place] artery (Primary Dx); S/P coronary artery stent placement; ACC/AHA stage C heart failure with preserved ejection fraction (HCC-CMS); Essential hypertension Social History Tobacco Use Types [...] place to sleep or slept in a nursing home (including now)? No 2021 Interpersonal Safety Answer [...] Sign Reading Time Taken Comments Blood Pressure 116/62 03/06/2023 1026 EDT Pulse 50 03/06/2023 1026 EDT Temperature - - Respiratory Rate - - Oxygen Saturation 98% 03/06/2023 1026 EDT Inhaled Oxygen Concentration - - Weight 66.2 kg (146 lb) 03/06/2023 1026 EDT Height 152.4 cm (5') 03/06/2023 1026 EDT Body Mass Index 28.51 03/06/2023 1026 EDT documented in this encounter Progress Notes * Luis Elaine MD - 03/06/2023 1045 EDT [facility] CARDIOLOGY FOLLOW-UP Date of Service: 03/06/2023 Reason for Visit: CAD in [place] artery [I25.10] ASSESSMENT 1. CAD s/p PCI 2006 No angina or heart failure. Excellent lipid profile (LDL 71) 2. HFpEF stage C Volume status optimized. 3. HTN Controlled. 4. S/p brain aneurysm repair No TIA or CVA s/s. PLAN ?? Stop metoprolol - she doesn't need it ?? Lifelong ASA and statin ?? Continue spironolactone and torsemide Follow-up Spring 2024, no testing SUBJECTIVE Sona Rodrigez, 1945 77 y.o. woman with brain aneurysm s/p clipping in the , YOLANDA on CPAP, gout, HTN, HFpEF and CADs/p RCA PCI 2006. Sona Rodrigez comes in today feeling well. She denies any cardiac s/s. She gardens and performs house hold chores w/o cardiopulmonary limitations. She has dependent edema controlled w/ torsemide. It resolves over night. Patient denies CP, SOB, PND, palpitations, syncope, bleeding, GI or stroke symptoms. Past Surgical History: Procedure Laterality Date ??? APPENDECTOMY ??? BRAIN SURGERY cerebral aneurysm repair ([facility]) ??? BREAST SURGERY Left mastectomy ??? CORONARY [...] Outpatient Medications Marked as Taking for the 03/06/23 encounter (Office Visit) with Luis Elaine MD Medication Sig ??? allopurinoL (ZYLOPRIM) 100 mg tablet Take 1 Tablet by mouth daily. ??? aspirin 81 mg EC tablet Take 1 Tablet by mouth daily. ??? atorvastatin (LIPITOR) 20 mg tablet Take 1 Tablet by mouth daily. ??? brinzolamide (AZOPT) 1 % ophthalmic suspension Place 1 Drop into both eyes 2 times daily. ??? cholecalciferol, Vitamin D3, 1,000 unit tablet Take 1 Tablet by mouth daily. ??? latanoprost (XALATAN) 0.005 % ophthalmic solution PLACE ONE DROP INTO BOTH EYES NIGHTLY ??? metoprolol TARtrate (LOPRESSOR) 25 mg tablet Take 0.5 Tablets by mouth 2 times daily. ??? spironolactone (ALDACTONE) 25 mg tablet Take 0.5 Tablets by mouth daily. ??? timolol (TIMOPTIC) 0.5 % ophthalmic solution ??? torsemide (DEMADEX) 20 mg tablet Take 1 Tablet by mouth daily. ??? traZODone (DESYREL) 50 mg tablet Take 1 Tablet by mouth at bedtime. ??? ZESTRIL 20 mg tablet Take 0.5 Tablets by mouth daily. ALLERGIES: Dilaudid [hydromorphone], Hydrocodone, Oxycodone, and Propine [dipivefrin] FAMILY HX: No premature CAD or brain aneurysm SOCIAL HX: Nonsmoker, rare alcohol ROS: Performed; pertinent positives and negatives as mentioned above. OBJECTIVE Wt Readings from Last 3 Encounters: 03/06/23 66.2 kg (146 lb) 12/11/22 68 kg (150 lb) 03/06/22 73.9 kg (163 lb) BP Readings from Last 3 Encounters: 03/06/23 116/62 12/11/22 122/62 03/06/22 128/64 Pulse Readings from Last 3 Encounters: 03/06/23 50 12/11/22 54 03/06/22 67 PHYSICAL EXAMINATION GENERAL: Pleasant, no acute distress. HEENT: Anicteric. NECK: Supple, normal jugular venous pressure. CHEST: Nontender, left mastectomy scar LUNGS: Clear to auscultation bilaterally, no rhonchi rales or wheezes. HEART: [place], regular rhythm, normal S1-S2, no murmurs. EXTREM: No cyanosis or edema, equal pulses. SKIN: Warm and dry, no rashes. NEURO: Alert and oriented x3, grossly intact, ambulatory w/ a cane DIAGNOSTIC DATA Available records including laboratory and cardiac studies reviewed . Lab Results Lab Results Component Value Date WBC 5.88 09/15/2021 HGB 13.7 09/15/2021 PLT 220 09/15/2021 No results found for: FERRITIN, IRON, TIBC, LABIRON Lab Results Component Value Date CREATININE 1.54 (H) 11/01/2022 CALCGFR 34 (L) 11/01/2022 BUN 45 (H) 11/01/2022 NA 142 11/01/2022 CL 108 11/01/2022 K 4.2 11/01/2022 LABALBU 4.8 09/15/2021 ALT 14 09/15/2021 AST 26 09/15/2021 ALKPHOS 64 09/15/2021 TBIL 0.5 09/15/2021 No results found for: NTBNP, TROPONINI, CPK, URICACID, CRP, SCRP Lab Results Component Value Date CHOL 153 09/15/2021 TRIG 248 09/15/2021 HDL 32 09/15/2021 LDL 36 (L) 03/01/2020 LDLBASE 71 09/15/2021 NHDLCH 121 09/15/2021 Lab Results Component Value Date HGBA1C 6.2 (H) 02/10/2019 TSH 0.97 01/07/2017 Cardiac/Imaging Studies Echocardiogram 2016: EF 60-65%, DD w/ elevated LAP. Normal RV. Trivial AI. SPAP 25 mmHg. Stress test 2016: Normal, EF 75% ORDERS/MEDICATION CHANGES No orders of the defined types were placed in this encounter. Medications Discontinued During This Visit Medication Reason ??? metoprolol TARtrate (LOPRESSOR) 25 mg tablet Therapy completed No orders of the defined types were placed in this encounter. Luis Elaine MD, PhD documented in this encounter Plan of Treatment Not on file documented as of this encounter Visit Diagnoses Diagnosis CAD in [place] artery- Primary Coronary atherosclerosis of [place] coronary artery S/P coronary artery stent placement Postsurgical percutaneous transluminal coronary angioplasty status ACC/AHA stage C heart failure with preserved ejection fraction (HCC-CMS) Essential hypertension Unspecified essential hypertension documented in this encounter Discontinued Medications Medication Sig Discontinue Reason Start Date End Da te metoprolol TARtrate (LOPRESSOR) 25 mg tabletIndications:Essenti al (primary) hypertension Take 0.5 Tablets by mouth 2 times daily. Therapy completed 12/11/2022 03/06/2023 documented as of this encounter Care Teams Bag Machine Set Up Operator Relationship Specialty Start Date End Date Jannette Perales NP [address] [place] [phone] PCP - General 11/13/17 Luis Elaine MD [address] [place] [address] [phone] Cardiovascular Disease 03/05/22 documented as of this encounter
--- OUTSIDE RECORDS SUMMARY | 2024-07-09 00:16 | XMS_ITS | Encounter Summary ---
Author Organization [facility] Address [address] [place] [address] Care Team Providers Care Cook Roast Name Role Phone Jannette Perales NP Primary Care Provider [phone] Luis Elaine MD Unavailable Reason for Visit * Reason Comments Follow-up Hypertension Other Burning with urinati on, increased frequency, Encounter Details Date Type Department Care Team (Latest Contact Info) Description 06/13/2023 11:30 EST Office Visit [facility] - [place] [address] [place], [place] [id number] Jannette Perales NP [address] [place] [address] Cystitis (Primary Dx); Immunization due; Essential (primary) hypertension; Stage 3b chronic kidney disease ([facility]); Pure hypercholesterolemia Social History Tobacco Use Types Packs/Day Years [...] place to sleep or slept in a prison (including now)? No 2021 Interpersonal Safety Answer [...] EST Pulse 62 06/13/2023 1126 EST Temperature - - Respiratory Rate 14 06/13/2023 1126 EST Oxygen Saturation - - Inhaled Oxygen Concentration - - Weight 65.7 kg (144 lb 12.8 oz) 06/13/2023 1126 EST Height 152.4 cm (5') 06/13/2023 1126 EST Body Mass Index 28.28 06/13/2023 1126 EST documented in this encounter Ordered Prescriptions Prescription Sig Dispense Quantity Refills Last Filled Start Date End Date amoxicillin-clavul anate (AUGMENTIN) 500-125 mg per tabletIndications: Cystitis Take 1 Tablet by mouth 3 times daily for 7 days. 21 Tablet 06/13/2023 06/20/2023 documented in this encounter Progress Notes * Jannette Devi NP - 06/13/2023 1130 EST Progress Note Patient ID: Sona Rodrigez is a 77 y.o. female Date of Service: 06/13/2023 Reason for Visit: Follow-up, Hypertension, and Other (Burning with urination, increased frequency, ) Assessment/Plan: BP stable, renal function has improved recently. She does appear to have a new UTI. Dip equivocal, sending for confirmation and culture. Will treat empirically. Avoiding macrobid d/t renal impairment, bactrim would interact with spironolactone. Starting with augmentin. Diagnoses and all orders for this visit: Cystitis - amoxicillin-pot clavulanate; Take 1 Tablet by mouth 3 times daily for 7 days. - UA [place] to Culture - POCT Urine Dipstick Visual Read Immunization due - Covid-19 mRNA-LNP Vaccine (MODERNA COVID-19) PF 0.5 mL IM (12 yrs+) Essential (primary) hypertension Stage 3b chronic kidney disease (HCC-CMS) Other orders - acetaminophen; Take 1 Tablet by mouth every 6 hours as needed for Pain. There are no Patient Instructions on file for this visit. Subjective: HPI: BURNING URINATION: Started 6 days ago, dysuria and frequency. No fever or chills, no hematuria. HTN: Managed with spironilactone and torsemide, which does cause some frequency. BP nml, renal function improved within her CKD3. ROS: See HPI Current Outpatient Medications: ??? acetaminophen (TYLENOL) 500 mg tablet, Take 1 Tablet by mouth every 6 hours as needed for Pain., Disp: , Rfl: ??? allopurinoL (ZYLOPRIM) 100 mg tablet, Take 1 Tablet by mouth daily., Disp: 90 Tablet, Rfl: 1 ??? amoxicillin-clavulanate (AUGMENTIN) 500-125 mg per tablet, Take 1 Tablet by mouth 3 times dailyfor 7 days., Disp: 21 Tablet, Rfl: 0 ??? aspirin 81 mg EC tablet, Take 1 Tablet by mouth daily., Disp: , Rfl: ??? atorvastatin (LIPITOR) 20 mg tablet, Take 1 Tablet by mouth daily., Disp: 90 Tablet, Rfl: 1 ??? brinzolamide (AZOPT) 1 % ophthalmic suspension, Place 1 Drop into both eyes 2 times daily., Disp: , Rfl: ??? cholecalciferol, Vitamin D3, 1,000 unit tablet, Take 1 Tablet by mouth daily., Disp: , Rfl: ??? latanoprost (XALATAN) 0.005 % ophthalmic solution, PLACE ONE DROP INTO BOTH EYES NIGHTLY, Disp:, Rfl: 11 ??? spironolactone (ALDACTONE) 25 mg tablet, Take 0.5 Tablets by mouth daily., Disp: 45 Tablet, Rfl: 3 ??? timolol (TIMOPTIC) 0.5 % ophthalmic solution, , Disp: , Rfl: ??? torsemide (DEMADEX) 20 mg tablet, Take 1 Tablet by mouth daily., Disp: 90 Tablet, Rfl: 3 ??? traZODone (DESYREL) 50 mg tablet, Take 1 Tablet by mouth at bedtime., Disp: 90 Tablet, Rfl: 3 ??? ZESTRIL 20 mg tablet, Take 0.5 Tablets by mouth daily., Disp: 90 Tablet, Rfl: 3 Past Medical History: Diagnosis Date ??? Arthritis Advanced OA bilat knees ??? Cancer ([facility]) ??? Cerebral aneurysm ??? Cerebral artery occlusion with cerebral infarction ([facility]) ??? Condition not found Question of gout,05/2014 ??? Heartburn ??? History of left breast cancer s/p left modified mastectomy (saline implant) ??? Hypertension ??? IGT (impaired glucose tolerance) ??? NAFLD (nonalcoholic fatty liver disease) 2004 ??? Right rotator cuff tear 10/2005 s/p repair ??? SAH (subarachnoid hemorrhage) ([facility]) s/p clipping LMCA/ACOM anuerysm ??? Scoliosis s/p Diallo Rods ??? Sleep apnea Past Surgical History: Procedure Laterality Date ??? APPENDECTOMY ??? BRAIN SURGERY cerebral aneurysm repair ([facility] ??? BREAST SURGERY Left mastectomy ??? CORONARY [...] [Dipivefrin] Rash Eye drops Objective: VS: BP 132/70 (BP Cuff Location: Right arm, BP Patient Position: Sitting, BP Cuff Sizes: Adult, regular) Pulse 62 Resp 14 Ht 152.4 cm (60) Wt 65.7 kg (144 lb 12.8 oz) BMI 28.28 kg/m?? Physical Exam: Gen: no acute distress, pleasant, cooperative HEENT: Head normocephalic, sclera non-icteric, features and expressions symmetrical Lungs: Unlabored breathing, no retractions. Skin: no lesions Neuro: alert & oriented, gait normal Speech recognition software was used to complete this progress note. Typographical errors may be present. Jannette Devi NP I spent a total of 30 minutes on the date of this encounter meeting with the patient and reviewing documentation/coordinating care as described in the above note. This was separate from any procedures performed at the time of the visit. documented in this encounter Plan of Treatment Not on file documented as of this encounter Procedures Procedure Name Priority Date/Time Associated Diagnosis Comments UA WITH REFLEX SEDIMENT (CULTURE IF POS) Routine 06/13/2023 12:02 EST Cystitis UA SEDIMENT + REFLEX TO CULTURE Today 06/13/2023 12:02 EST Cystitis BACTERIAL CULTURE, URINE Today 06/13/2023 12:02 EST Cystitis POCT URINE DIPSTICK, VISUAL READ Routine 06/13/2023 Cystitis documented in this encounter Results * (ABNORMAL) BACTERIAL CULTURE, URINE (06/13/2023 12:02 EST) Organism ID Greater than 100,000 CFU/ml Escherichia coli(A) VITEK SUSCEPTIBILITY 06/15/2023 7:34 EST [facility] Comment: Cefazolin susceptibility results can be used to predict susceptibility results for the following oral cephalosporins when used for therapy of uncomplicated UTI's due to E.coli, K.pneumoniae and P.mirabilis: cefaclor, cefdinir, cefpodoxime, cefprozil, cefuroxime, cephalexin and loracarbef. ??Please note that only cefdinir, cefpodoxime, cefuroxime and cephalexin are on the [facility] inpatient formulary. Urine URINE SPECIMEN OBTAINED BY CLEAN CATCH PROCEDURE / Unknown Urine Collect / Unknown 06/13/2023 12:02 EST 06/13/2023 22:26 EST Narrative Organism Antibiotic Method Susceptibility Escherichia coli Amoxicillin Clavulan ic acid VITEK SUSCEPTIBILITY <=2 ug/mL: Susceptible Escherichia coli Ampicillin VITEK SUSCEPTIBILITY <=2 ug/mL: Susceptible Escherichia coli Ampicillin Sulbactam VITEK SUSCEPTIBI LITY <=2 ug/mL: Susceptible Escherichia coli Cefazolin VITEK SUSCEPTIBILITY <=4 ug/mL: Susceptible Escherichia coli Cefepime VITEK SUSCEPTIBILITY <=1 ug/mL: Susceptible Escherichia coli Ceftriaxone VITEK SUSCEPTIBILITY <=1 ug/mL: Susceptible Escherichia coli Ciprofloxacin VITEK SUSCEPTIBILITY <=0.25 ug/mL: Susceptible Escherichia coli Ertapenem VITEK SUSCEPTIBILITY <=0.5 ug/mL: Susceptible Escherichia coli Gentamicin VITEK SUSCEPTIBILITY <=1 ug/mL: Susceptible Escherichia coli Levofloxacin VITEK SUSCEPTIBILITY <=0.12 ug/mL: Susceptible Escherichia coli Nitrofurantoin VITEK SUSCEPTIBILITY <=16 ug/mL: Susceptible Escherichia coli Piperacillin Tazobactam VITEK SUSCEPT IBILITY <=4 ug/mL: Susceptible Escherichia coli Tobramycin VITEK SUSCEPTIBILITY <=1 ug/mL: Susceptible Escherichia coli Trimethoprim-Sulfame thox azole VITEK SUSCEPTIBILITY <=20 ug/mL: Susceptible us Jannette Perales NP MICROBIOLOGY - GENERAL ORDERABLE S Final Result [facility] [address] [place] [address] * (ABNORMAL) UA SEDIMENT + REFLEX TO CULTURE (06/13/2023 12:02 EST) Urine RBC Count, Manual 3 - 10(A) 0 - 2 Cells/HPF 06/13/2023 22:26 [facility] Urine WBC Count 10 - 50(A) 0 - 3 Cells/HPF 06/13/2023 22:26 [facility] Urine Squamous Count, Manual Few(A) None Seen Cells/HPF 06/13/2023 22:26 [facility] Urine Hyaline Cast Count, Manual <=10 <=10 Casts/LPF 06/13/2023 22:26 [facility] Urine Bacteria Count, Manual Few(A) None Seen Bacteria/H PF 06/13/2023 22:26 [facility] Urine URINE SPECIMEN OBTAINED BY CLEAN CATCH PROCEDURE / Unknown Urine Collect / Unknown 06/13/2023 12:02 EST 06/13/2023 12:02 [facility] - 06/13/2023 22:26 [facility] Urine Sediment Analysis results are unreliable on urines that are unrefrigerated for >2 hrs or refrigerated >8 hrs. A Urine Culture test has been reflexively ordered based on result criteria from the Urine Sediment Analysis. us Jannette Perales SALES REPRESENTATIVE [employer] URINALYSIS ORDERABLES Final Resu lt Performing Organization Address City/State/[facility] Co de Phone Number [facility] [address] [place] [address] * (ABNORMAL) UA CASCADE TO CULTURE (06/13/2023 12:02 EST) Color UA Yellow Colorless, Yellow 06/13/2023 22:26 [facility] Clarity UA Cloudy(A) Clear 06/13/2023 22:26 [facility] Glucose UA Negative Negative mg/dL 06/13/2023 22:26 [facility] Bilirubin UA Negative Negative 06/13/2023 22:26 [facility] Ketones UA Negative Negative 06/13/2023 22:26 [facility] Specific [place], Urine <=1.005 1.001 - 1.030 06/13/2023 22:26 [facility] Blood UA Trace(A) Negative 06/13/2023 22:26 [facility] pH, UA 5.5 <8.5 06/13/2023 22:26 [facility] Protein UA Negative Negative mg/dL 06/13/2023 22:26 [facility] Urobilinogen UA 0.2 0.2-1.0 mg/dL mg/dL 06/13/2023 22:26 [facility] Nitrite UA Negative Negative 06/13/2023 22:26 [facility] Leukocyte Esterase UA 1+(A) Negative 06/13/2023 22:26 [facility] Urine URINE SPECIMEN OBTAINED BY CLEAN CATCH PROCEDURE / Unknown Urine Collect / Unknown 06/13/2023 12:02 EST 06/13/2023 12:02 EST us Jannette Perales SALES REPRESENTATIVE [employer] URINALYSIS ORDERABLES Final Resu lt Performing Organization Address City/State/[facility] Co de Phone Number [facility] [address] [place] [phone] * (ABNORMAL) POCT URINE DIPSTICK, VISUAL READ (06/13/2023) Color, UA Yellow Yellow, Colorless [facility] Clarity, UA Cloudy(A) Clear [facility] Glucose, UA Negative Negative mg/dL [facility] Bilirubin, UA Negative Negative [facility] Ketones, UA Negative Negative mg/dL [facility] Spec Grav, UA <=1.005 1.001 - 1.030 [facility] Blood, UA 1+(A) Negative [facility] PO[facility] T [facility] pH, UA 5.0 <=8.5 [facility] PO[facility] T [facility] C[facility] Protein, UA Negative Negative mg/dL [facility] Urobilinogen, UA 0.2 0.2 - 1.0 E.U./dL [facility]INT [facility] C[facility] Nitrite, UA Negative Negative [facility] PO INT OF CARE Leuk Esterase 2+(A) Negative [facility] POINT OF CARE Comment [facility] POIN T [facility] CARE Urine URINE SPECIMEN OBTAINED BY CLEAN CATCH PROCEDURE / Unknown 06/13/2023 Jannette Perales NP POINT OF CARE TEST ORDERABLES Fi nal Result [facility] POINT OF CARE documented in this encounter Visit Diagnoses Diagnosis Cystitis- Primary Cystitis, unspecified Immunization due Need for prophylactic vaccination and inoculation against unspecified single disease Essential (primary) hypertension Unspecified essential hypertension Stage 3b chronic kidney disease ([facility]) Pure hypercholesterolemia documented in this encounter Historical Medications * This list may reflect changes made after this encounter. acetaminophen (TYLENOL) 500 mg tablet Take 1 Tablet by mouth every 6 hours as needed for Pain. added in this encounter Orders Immunization/Injection Count Last Ordered Date First Ordered Date COVID-19 MRNA-LNP [place] CCINE (MODERNA COVID-19) PF 0.5 ML (12 YRS+) 1 06/13/2023 documented in this encounter Care Teams Cook Roast Relationship Specialty Start Date End Date Jannette Perales NP [address] [place] [phone] PCP - General 11/13/17 Luis Elaine MD [address] [place] [address] [address] [place] [address] Cardiovascular Disease 03/05/22 documented as of this encounter
--- OUTSIDE RECORDS SUMMARY | 2024-07-09 00:16 | XMS_ITS | Encounter Summary ---
Author Organization [facility] Address [address] [place] [address] Care Team Providers Care Manager Fixed Income Name Role Phone Jannette Perales NP Primary Care Provider [phone] Luis Elaine MD Unavailable [phone] Reason for Visit * Reason Comments Medications Refill Encounter Details Date Type Department Care Team ([facility] st Contact Info) Description 09/01/2023 Refill [facility] - [place] [address] [place] [address] Jannette Perales NP [address] [place] [phone] Medications Refill Social History Tobacco [...] Tablet by mouth daily. 90 Tablet 3 09/03/2023 allopurinoL (ZYLOPRIM) 100 mg tabletIndications:Hy peruricemia Take 1 Tablet by mouth daily. 90 Tablet 3 09/03/2023 documented in this encounter Miscellaneous Notes * Telephone Encounter - Connor Núñez RN - 09/03/2023 1145 EST Medication(s) Requested: allopurinol, atorvastatin Pref[facility]acy: [facility] Are visits in compliance? Yes Last Refill Date: Scripts escribed Recent Visits Date Type Provider Dept 06/13/23 Office Visit Jannette Devi NP [facility] [place] 12/11/22 Office Visit Jannette Devi NP [facility] [place] Showing recent visits within past 540 days with a meds authorizing provider and meeting all other requirements Future Appointments Date Type Provider Dept 12/16/23 Appointment Jannette Devi NP [facility] [place] Showing future appointments within next 150 days with a meds authorizing provider and meeting all other requirements CONNOR NÚÑEZ RN 09/03/2023 11:45 documented in this encounter Plan of Treatment Not on file documented as of this encounter Visit Diagnoses Diagnosis Hyperuricemia Other abnormal blood chemistry Arteriosclerotic cardiovascular disease Unspecified cardiovascular disease documented in this encounter Discontinued Medications Medication Sig Discontinue Reason Start Date End Da te allopurinoL (ZYLOPRIM) 100 mg tabletIndications:Hyperuri cemia Take 1 Tablet by mouth daily. 12/11/2022 09/03/2023 atorvastatin (LIPITOR) 20 mg tabletIndications:Arterios clerotic cardiovascular disease Take 1 Tablet by mouth daily. 12/11/2022 09/03/2023 documented as of this encounter Care Teams Manager Fixed Income Relationship Specialty Start Date End Date Jannette Perales NP [address] [place] [phone] PCP - General 11/13/17 Luis Elaine MD [address] [place] [address] [address] [place] [address] Cardiovascular Disease 03/05/22 documented as of this encounter
--- OUTSIDE RECORDS SUMMARY | 2024-07-09 00:16 | XMS_ITS | Encounter Summary ---
Author Organization [facility] Address [address] [place] [address] Care Team Providers Care Bond Manager Name Role Phone Jannette Perales NP Primary Care Provider [phone] Luis Elaine MD Unavailable [phone] Reason for Visit * Reason Comments Medications Refill Encounter Details Date Type Department Care Team ([facility] st Contact Info) Description 03/07/2023 Refill [facility] Adult Primary [facility] - [place] [address] [place] [address] Jannette Perales NP [address] [place] [phone] Medications Refill Social History Tobacco [...] place to sleep or slept in a skilled nursing (including now)? No 2021 Interpersonal Safety Answer [...] Tablet by mouth daily. 90 Tablet 3 03/11/2023 02/25/2024 documented in this encounter Miscellaneous Notes * Telephone Encounter - Keyshawn Lomeli RN - 03/10/2023 0894 EDT Medication(s) Requested: Torsemide Preferred Pharmacy: [facility] Are visits in compliance? Yes Last Refill Date: 12/11/22 for 90 w/ 1 Recent Visits Date Type Provider Dept 12/11/22 Office Visit Jannette Devi NP [facility] [place] 09/20/21 Office Visit Jannette Devi NP [facility] [place] Showing recent visits within past 540 days with a meds authorizing provider and meeting all other requirements Future Appointments Date Type Provider Dept 06/13/23 Appointment Jannette Devi NP [facility] [place] Showing future appointments within next 150 days with a meds authorizing provider and meeting all other requirements Lab Results Component Value Date CREATININE 1.54 (H) 11/01/2022 KEYSHAWN LOMELI RN 03/10/2023 8:49 documented in this encounter Plan of Treatment Not on file documented as of this encounter Visit Diagnoses Diagnosis Essential (primary) hypertension- Primary Unspecified essential hypertension documented in this encounter Discontinued Medications Medication Sig Discontinue Reason Start Date End Da te torsemide (DEMADEX) 20 mg tabletIndications:Essenti al (primary) hypertension Take 1 Tablet by mouth daily. 12/11/2022 03/10/2023 documented as of this encounter Care Teams Bond Manager Relationship Specialty Start Date End Date Jannette Perales NP [address] [place] [phone] PCP - General 11/13/17 Luis Elaine MD [address] [place] [address] [phone] Cardiovascular Disease 03/05/22 documented as of this encounter
--- OUTSIDE RECORDS SUMMARY | 2024-07-09 00:16 | XMS_ITS | Encounter Summary ---
Author Organization [facility] Address [address] [place] [address] Care Team Providers Care Systems Auditor Name Role Phone Jannette Perales NP Primary Care Provider [phone] Luis Elaine MD Unavailable [phone] Reason for Visit * Reason Comments Medications Refill Encounter Details Date Type Department Care Team ([facility] st Contact Info) Description 09/17/2023 Refill [facility] Adult [facility] - [place] [address] [place] [address] Jannette Perales NP [address] [place] [phone] Medications Refill Social History Tobacco [...] Tablets by mouth daily. 90 Tablet 3 09/19/2023 documented in this encounter Miscellaneous Notes * Telephone Encounter - Mckenzie Chowdhury RN - 09/19/2023 1133 EST Medication(s) Requested: Zestril Preferred Pharmacy: [facility] Are visits in compliance? Yes Last Refill Date: 08/20/2022 Recent Visits Date Type Provider Dept 06/13/23 Office Visit Jannette Devi NP [facility] [place] 12/11/22 Office Visit Jannette Devi NP [facility] [place] Showing recent visits within past 540 days with a meds authorizing provider and meeting all other requirements Future Appointments Date Type Provider Dept 12/16/23 Appointment Jannette Devi NP [facility] [place] Showing future appointments within next 150 days with a meds authorizing provider and meeting all other requirements MCKENZIE CHOWDHURY RN 09/19/2023 11:33 documented in this encounter Plan of Treatment Not on file documented as of this encounter Visit Diagnoses Diagnosis Essential (primary) hypertension- Primary Unspecified essential hypertension documented in this encounter Discontinued Medications Medication Sig Discontinue Reason Start Date End Da te ZESTRIL 20 mg tabletIndications:Essenti al (primary) hypertension Take 0.5 Tablets by mouth daily. 08/20/2022 09/19/2023 documented as of this encounter Care Teams Systems Auditor Relationship Specialty Start Date End Date Jannette Perales NP [address] [place] [phone] PCP - General 11/13/17 Luis Elaine MD [address] [place] [phone] Cardiovascular Disease 03/05/22 documented as of this encounter
--- OUTSIDE RECORDS SUMMARY | 2024-07-09 00:16 | XMS_ITS | Encounter Summary ---
Author Organization [facility] Address [address] [place] [address] Care Team Providers Care Payroll Accounting Specialist Name Role Phone Jannette Perales NP Primary Care Provider [phone] Reason for Visit * Reason Onset Date Comments Medications Refill 05/27/2021 Encounter Details Date Type Department Care Team (Late st Contact Info) Description 05/27/2021 Refill [facility] - [place] [address] [place], [place] [phone] Jannette Perales NP [address] [place] [phone] Medications Refill Social History Tobacco Use Types [...] ZESTRIL 20 mg tabletIndications: Essential (primary) hypertension TAKE 1/2 TABLET BY MOUTH DAILY 90 Tablet 3 05/27/2021 08/20/2022 documented in this encounter Miscellaneous Notes * Telephone Encounter - Lisa Jacob RN - 05/27/2021 9747 EDT Last OV: 09/15/2020 Next OV: 2020 Requesting Refill Script sent documented in this encounter Plan of Treatment Not on file documented as of this encounter Visit Diagnoses Diagnosis Essential (primary) hypertension- Primary Unspecified essential hypertension documented in this encounter Discontinued Medications Medication Sig Discontinue Reason Start Date End Da te ZESTRIL 20 mg tabletIndications:Essentia l (primary) hypertension Take 0.5 Tabs by mouth daily. *BRAND NAME ONLY* 03/07/2020 05/27/2021 documented as of this encounter Care Teams Payroll Accounting Specialist Relationship Specialty Start Date End Date Jannette Perales NP [address] [place] [phone] PCP - General 11/13/17 documented as of this encounter
--- OUTSIDE RECORDS SUMMARY | 2024-07-09 00:16 | XMS_ITS | Encounter Summary ---
Author Organization [facility] Address [address] [place] [address] Care Team Providers Care Reservations Sales Supervisor Name Role Phone Jannette Perales NP Primary Care Provider [phone] Luis Elaine MD Unavailable [phone] Encounter Details Date Type Department Care Team (Late st Contact Info) Description 11/01/2022 9:15 EDT Phlebotomy Only [facility] - Outpatient Phlebotomy Drawing [address] [place] [address] Lab, [facility] Op Phlebotomy Routine medical exam; Essential (primary) hypertension; Stage 3b chronic kidney disease ([facility]) Social History Tobacco Use Types Packs/Day [...] Never 2021 How often does anyone, martaroz lilly family, insult, scream, curse or threaten [...] Diagnosis Comments BASIC METABOLIC PANEL (BMP) Routine 11/01/2022 10:06 EDT Routine medical exam Essential (primary) hypertension Stage 3b chronic kidney disease ([facility]) documented in this encounter Results * (ABNORMAL) BASIC METABOLIC PANEL (BMP) (11/01/2022 10:06 EDT) Sodium 142 136 - 145 mmol/L 11/01/2022 10:53 [facility] Potassium 4.2 3.5 - 5.0 mmol/L 11/01/2022 10:53 [facility] Chloride 108 96 - 110 mmol/L 11/01/2022 10:53 [facility] CO2 Total 20(L) 22 - 32 mmol/L 11/01/2022 10:53 [facility] Anion Gap 14 5 - 14 11/01/2022 10:53 [facility] Glucose 97 70 - 100 mg/dL 11/01/2022 10:53 EDT [facility] Calcium 9.0 8.5 - 10.5 mg/dL 11/01/2022 10:53 EDT [facility] BUN 45(H) 10 - 26 mg/dL 11/01/2022 10:53 T [facility] Creatinine 1.54(H) 0.52 - 1.04 mg/dL 11/01/2022 10:53 EDT [facility] eGFR 34(L) >60 mL/min/1.73 m2 11/01/2022 10:53 EDT [facility] Blood VENOUS BLOOD / Unknown Venipuncture / Unknown 11/01/2022 10:06 EDT 11/01/2022 10:26 EDT us Jannette Perales FINAL ASSEMBLY INSPECTOR CHEMISTRY & BLOOD GAS ORDERABLES Final Result [facility] [address] [place] [address] documented in this encounter Visit Diagnoses Diagnosis Routine medical exam Routine general medical examination at a health care facility Essential (primary) hypertension Unspecified essential hypertension Stage 3b chronic kidney disease ([facility]) documented in this encounter Care Teams Reservations Sales Supervisor Relationship Specialty Start Date End Date Jannette Perales NP [address] [place] [phone] PCP - General 11/13/17 Luis Elaine MD [address] [place] [address] [place] [phone] Cardiovascular Disease 03/05/22 documented as of this encounter
--- OUTSIDE RECORDS SUMMARY | 2024-07-09 00:16 | XMS_ITS | Encounter Summary ---
Author Organization [facility] Address [address] [place] [address] Care Team Providers Care Sound Recording Technician Name Role Phone Jannette Peraels NP Primary Care Provider [phone] Luis Elaine MD Unavailable Reason for Visit * Reason Onset Date Comments Patient Outreach 07/06/2024 Encounter Details Date Type Department Care Team ([facility] st Contact Info) Description 07/06/2024 Telephone [facility] Adult Primary Care - [address] [id number] Cht, Admin Patient Outreach Social History Tobacco Use Types Packs/Day Years [...] encounter Miscellaneous Notes * Telephone Encounter - Rica Blair - 07/06/2024 1415 EST I spoke with Sona about scheduling her Annual Wellness visit and she has declined at this time. documented in this encounter Plan of Treatment Not on file documented as of this encounter Visit Diagnoses Not on filedocumented in this encounter Care Teams Sound Recording Technician Relationship Specialty Start Date End Date Jannette Perales NP [address] [place] [phone] PCP - General 11/13/17 Luis Elaine MD [address] [place] [address] [address] [place] [address] Cardiovascular Disease 03/05/22 documented as of this encounter
--- OUTSIDE RECORDS SUMMARY | 2024-07-09 00:16 | XMS_ITS | Encounter Summary ---
Author Organization [facility] Address [address] [place] [address] Care Team Providers Care Measurement Supervisor Name Role Phone Jannette Perales NP Primary Care Provider [phone] Luis Elaine MD Unavailable [phone] Reason for Visit * Reason Comments Medications Refill Encounter Details Date Type Department Care Team (Late st Contact Info) Description 12/09/2022 Refill [facility] [address] [place] [address] Luis Elaine MD [address] [place] [address] [place] [address] Medications Refill Social History Tobacco Use Types [...] place to sleep or slept in a alf (including now)? No 2021 Interpersonal Safety Answer [...] BY MOUTH EVERY DAY 45 Tablet 3 12/10/2022 12/11/2022 documented in this encounter Plan of Treatment Not on file documented as of this encounter Visit Diagnoses Not on filedocumented in this encounter Discontinued Medications Medication Sig Discontinue Reason Start Date End Da te spironolactone (ALDACTONE) 25 mg tablet TAKE ONE-HALF TABLET BY MOUTH EVERY DAY 12/25/2021 12/10/2022 documented as of this encounter Care Teams Measurement Supervisor Relationship Specialty Start Date End Date Jannette Perales NP [address] [place] [address] PCP - General 11/13/17 Luis Elaine MD [address] [place] [address] [address] [place] [address] Cardiovascular Disease 03/05/22 documented as of this encounter
--- OUTSIDE RECORDS SUMMARY | 2024-07-09 00:16 | XMS_ITS | Encounter Summary ---
Author Organization [facility] Address [address] [place] [address] Care Team Providers Care Embossed Or Impressed Lettering Painter Name Role Phone Jannette Perales NP Primary Care Provider [phone] Reason for Visit * Reason Comments Other Encounter Details Date Type Department Care Team ([facility] st Contact Info) Description 02/14/2022 Refill [facility] Adult Primary Care - [place] [address] [place] [address] Jannette Perales NP [address] [place] [address] Other Social History Tobacco Use [...] (LOPRESSOR) 25 mg tabletIndications: Essential (primary) hypertension Take 0.5 Tablets by mouth 2 times daily. 90 Tablet 3 02/15/2022 3 documented in this encounter Miscellaneous Notes * Telephone Encounter - Lora Núñez RN - 02/15/2022 0827 EDT Scripts escribed documented in this encounter Plan of Treatment Not on file documented as of this encounter Visit Diagnoses Diagnosis Essential (primary) hypertension- Primary Unspecified essential hypertension documented in this encounter Discontinued Medications Medication Sig Discontinue Reason Start Date End Da te metoprolol TARtrate (LOPRESSOR) 25 mg tabletIndications:Essenti al (primary) hypertension TAKE 1/2 TABLET BY MOUTH TWO TIMES A DAY 02/27/2021 02/15/2022 documented as of this encounter Care Teams Embossed Or Impressed Lettering Painter Relationship Specialty Start Date End Date Jannette Perales NP [address] [place] [phone] PCP - General 11/13/17 documented as of this encounter
--- OUTSIDE RECORDS SUMMARY | 2024-07-09 00:17 | XMS_ITS | Encounter Summary ---
Author Organization [facility] Address [address] [place] [address] Care Team Providers Care Software Test Automation Engineer Name Role Phone Jannette Perales NP Primary Care Provider [phone] Reason for Visit * Reason Comments Other Encounter Details Date Type Department Care Team ([facility] st Contact Info) Description 04/10/2020 Refill [facility] Adult Primary Care - [place] [address] [place] [address] Jannette Perales NP [address] [place] [address] Other Social History Tobacco Use [...] on filedocumented in this encounter Care Teams Software Test Automation Engineer Relationship Specialty Start Date End Date Jannette Perales NP [address] [place] [phone] PCP - General 11/13/17 documented as of this encounter
--- OUTSIDE RECORDS SUMMARY | 2024-07-09 00:17 | XMS_ITS | Encounter Summary ---
Author Organization [facility] Address [address] [place] [address] Care Team Providers Care Social Welfare Clerk Name Role Phone Jannette Perales VOCATIONAL EXAMINER Primary Care Provider [phone] Encounter Details Date Type Department Care Team ([facility] st Contact Info) Description 08/12/2019 Abstract [facility] [place] - [address] [place] [address] [phone] Ambulatory, Process Plant Operator Social History Tobacco Use Types Packs/Day Years Used Date Smoking Tobacco: Never Smokeless Tobacco: Never Alcohol Use Standard Drinks/Week Comments Yes 2 (1 standard drink = 0.6 oz pur e alcohol) Comments Unknown Sex and Gender Information Value [...] Discontinue Reason Start Date End Da te timolol (TIMOPTIC) 0.25 % ophthalmic solution Place 1 Drop into both eyes 2 times daily. Abstraction 08/12/2019 aspirin chewable 81 mg tablet Take 81 mg by mouth daily. Abstraction 08/12/2019 metoprolol (LOPRESSOR) 25 mg tablet Take 25 mg by mouth 2 times daily. Abstraction 08/12/2019 documented as of this encounter Historical Medications * This list may reflect changes made after this encounter. aspirin 81 mg EC tablet Take 1 Tablet by mouth daily. metoprolol (LOPRESSOR) 25 mg tablet Take 12.5 mg by mouth 2 times daily. 0 medical supply, miscellaneous (MISCELLANEOUS MEDICAL SUPPLY MISC) CPAP facemask Dx: obstructive sleep apnea -, Sig: pt is having difficulty with mask and needs new option Inhaled at bedtime 1 timolol (TIMOPTIC-XE) 0.5 % ophthalmic gel-forming 1 Drop daily. in each affected eye 1 added in this encounter Care Teams Social Welfare Clerk Relationship Specialty Start Date End Date Jannette Perales NP [address] [place] [phone] PCP - General 11/13/17 documented as of this encounter
--- OUTSIDE RECORDS SUMMARY | 2024-07-09 00:17 | XMS_ITS | Encounter Summary ---
Author Organization [facility] Address [address] [place] [address] Care Team Providers Care Business Services Assistant Name Role Phone Jannette Perales NP Primary Care Provider [phone] Encounter Details Date Type Department Care Team (Late st Contact Info) Description 03/09/2019 Historical Results Only [facility] Radiology Results [address] [place], [place] [phone] Jannette Perales NP [address] [place] [address] Social History Tobacco Use Types Packs/Day Years [...] Procedure Name Priority Date/Time Associated Diagnosis Comments CT UPPER EXTREMITY W WO CONTRAST 03/09/2019 16:34 EDT FL ARTHROGRAM SHOULDER LEFT 03/09/2019 14:18 EDT documented in this encounter Results * CT UPPER EXTREMITY W WO CONTRAST (03/09/2019 16:34 EDT) Anatomical Region Laterality Modality Upper Extremities Other 03/09/2019 16:3 4 EDT Narrative 03/09/2019 16:37 EDT ? EXAM: CAT SCAN/UPPER EXTREMITY WITH CONT. EX. D/ (0954) ? CLINICAL INFORMATION: ? M25.511 ACUTE PAIN OF RIGHT SHOULDER ? XRAY ARTHROGRAM SHOULDER RIGHT ? INDICATION: Acute right shoulder pain. ? COMPARISON: None. ? TECHNIQUE: Following a right shoulder air contrast arthrogram using ? diluted nonionic contrast, lidocaine and free air, CT scan was ? performed. Axial images and multiplanar reformations were reviewed. ? FINDINGS: ? There is rupture of the supraspinatus and infraspinatus tendons with ? extension of air and contrast into the subacromial/subdeltoid bursa. ? There is severe narrowing of the subacromial/subdeltoid space, ? consistent with chronic rotator cuff ruptures. Both torn tendon free ? edge is are retracted to the level of the superior glenohumeral ? joint. There is fatty atrophy of the supraspinatus and infraspinatus ? muscles. ? The subscapularis and teres minor tendons are intact. ? No definite evidence of tear of the glenoid labrum is identified. The ? biceps tendon is intact. ? There are mild degenerative arthritic changes within the glenohumeral ? joint. Mild degenerative arthrosis of the acromioclavicular joint is ? also present. There are degenerative changes within the visualized ? portions of the cervical spine. No fracture or suspicious bone lesion ? is identified. ? Linear atelectasis and/or scar is present within the right lung base. ? IMPRESSION: ? 1. Supraspinatus and infraspinatus tendon ruptures with tendon ? retraction and muscle fatty atrophy. ? 2. Mild degenerative arthrosis of the acromioclavicular and ? glenohumeral joints. ? REPORT SIGNED IN OTHER VENDOR SYSTEM 03/09/2019 ?Reported By: Chuy Mantilla MD ? CC: Jannette Devi ? Transcribed Date/Time: 03/09/2019 (1637) ? Canvass Manager: SCR ? Printed Date/Time: 04/15/2019 (0340) ? PAGE 1 ? Signed Report ? Procedure Note Chuy Mantilla MD - 06/01/2019 EXAM: CAT SCAN/UPPER EXTREMITY WITH CONT. EX. D/ (0954) CLINICAL INFORMATION: M25.511 ACUTE PAIN OF RIGHT SHOULDER XRAY ARTHROGRAM SHOULDER RIGHT INDICATION: Acute right shoulder pain. COMPARISON: None. TECHNIQUE: Following a right shoulder air contrast arthrogram using diluted nonionic contrast, lidocaine and free air, CT scan was performed. Axial images and multiplanar reformations were reviewed. FINDINGS: There is rupture of the supraspinatus and infraspinatus tendonswith extension of air and contrast into the subacromial/subdeltoidbursa. There is severe narrowing of the subacromial/subdeltoid space, consistent with chronic rotator cuff ruptures. Both torn tendonfree edge is are retracted to the level of the superior glenohumeral joint. There is fatty atrophy of the supraspinatus andinfraspinatus muscles. The subscapularis and teres minor tendons are intact. No definite evidence of tear of the glenoid labrum is identified.The biceps tendon is intact. There are mild degenerative arthritic changes within theglenohumeral joint. Mild degenerative arthrosis of the acromioclavicular jointis also present. There are degenerative changes within the visualized portions of the cervical spine. No fracture or suspicious bonelesion is identified. Linear atelectasis and/or scar is present within the right lungbase. IMPRESSION: 1. Supraspinatus and infraspinatus tendon ruptures with tendon retraction and muscle fatty atrophy. 2. Mild degenerative arthrosis of the acromioclavicular and glenohumeral joints. REPORT SIGNED IN OTHER VENDOR SYSTEM 03/09/2019 Reported By: Chuy Mantilla MD CC: Jannette Devi Transcribed Date/Time: 03/09/2019 (9334) Canvass Manager: Printed Date/Time: 04/15/2019 (4346) PAGE 1 Signed Report us Jannette Perales NP IMG CT ORDERABLES Final Result * FL ARTHROGRAM SHOULDER LEFT (03/09/2019 14:18 EDT) Anatomical Region Laterality Modality Left Other 03/09/2019 14:1 8 EDT Narrative 03/09/2019 14:18 EDT ? EXAM: RADIOLOGY/ARTHROGRAM-RIGHT SHOULDER EX. D/ (0938) ? CLINICAL INFORMATION: ? M25.511 ACUTE PAIN OF RIGHT SHOULDER ? INDICATION: M25.511 ACUTE PAIN OF RIGHT SHOULDER ??ACUTE PAIN OF RIGHT ? SHOULDER ? EXAM: ??RIGHT SHOULDER ARTHROGRAM ? COMPARISON: None. ? TECHNIQUE: The procedure and its risks were discussed with the ? patient and oral and written consent were obtained. The right ? shoulder was prepped and draped in sterile fashion and local ? anesthesia was provided with 1% lidocaine. The right glenohumeral ? joint was entered with a 22-gauge spinal needle. 5 mL of 1-1 solution ? of Omnipaque 300 and 1% lidocaine was administered followed by 10 mL ? of room air without difficulty. ? FINDINGS: Postprocedure imaging demonstrates extension of air and ? contrast into the subacromial-subdeltoid bursa through a ? full-thickness rupture of the supraspinatus tendon. ? IMPRESSION: ??The patient tolerated procedure well and was taken to ? computed tomography for continuation of the examination. ? 26 seconds of fluoroscopy time was utilized. ? REPORT SIGNED IN OTHER VENDOR SYSTEM 03/09/2019 ?Reported By: Chuy Mantilla MD ? CC: ? Transcribed Date/Time: 03/09/2019 (1418) ? Canvass Manager: ? Printed Date/Time: 04/15/2019 (0340) ? PAGE 1 ? Signed Report ? Procedure Note Chuy Mantilla MD - 06/01/2019 EXAM: RADIOLOGY/ARTHROGRAM-RIGHT SHOULDER EX. D/ (0938) CLINICAL INFORMATION: M25.511 ACUTE PAIN OF RIGHT SHOULDER INDICATION: M25.511 ACUTE PAIN OF RIGHT SHOULDER ACUTE PAIN OFRIGHT SHOULDER EXAM: RIGHT SHOULDER ARTHROGRAM COMPARISON: None. TECHNIQUE: The procedure and its risks were discussed with the patient and oral and written consent were obtained. The right shoulder was prepped and draped in sterile fashion and local anesthesia was provided with 1% lidocaine. The right glenohumeral joint was entered with a 22-gauge spinal needle. 5 mL of 1-1solution of Omnipaque 300 and 1% lidocaine was administered followed by 10mL of room air without difficulty. FINDINGS: Postprocedure imaging demonstrates extension of air and contrast into the subacromial-subdeltoid bursa through a full-thickness rupture of the supraspinatus tendon. IMPRESSION: The patient tolerated procedure well and was taken to computed tomography for continuation of the examination. 26 seconds of fluoroscopy time was utilized. REPORT SIGNED IN OTHER VENDOR SYSTEM 03/09/2019 Reported By: Chuy Mantilla MD CC: Transcribed Date/Time: 03/09/2019 (1418) Canvass Manager: Printed Date/Time: 04/15/2019 (1279) PAGE 1 Signed Report Jannette Perales NP IMG FLUOROSCOPY ORDERABLES Final Result documented in this encounter Visit Diagnoses Not on filedocumented in this encounter Care Teams Business Services Assistant Relationship Specialty Start Date End Date Jannette Perales NP [address] [place] [phone] PCP - General 11/13/17 documented as of this encounter
--- OUTSIDE RECORDS SUMMARY | 2024-07-09 00:17 | XMS_ITS | Encounter Summary ---
Author Organization [facility] Address [address] [place] [address] Care Team Providers Care Alpaca Farmer Name Role Phone Jannette Perales MIXING MACHINE TENDER Primary Care Provider [phone] Reason for Visit * Reason Onset Date Comments Medication Problem 03/09/2020 Ko sylvester, appeal denied. Encounter Details Date Type Department Care Team ([facility] st Contact Info) Description 03/09/2020 Telephone [facility] Adult Primary Care - [place] [address] [place] [address] Jannette Perales, FLORENCIO [address] [place] [address] Medication Problem (oK MCCLOUD denied, appeal denied.) Social History Tobacco Use Types Packs/Day Years [...] Telephone Encounter - Lora Núñez RN - 03/09/2020 1323 EDT Sona said she doesn't really remember the Lipitor doing anything so she's willing to trial that. * Telephone Encounter - Lora Núñez RN - 03/09/2020 1151 EDT Called for appeal of the Crestor brand name. Was advised that Medicare D will not cover this medication at all. It is over $1000 for a 90 day supply. * Telephone Encounter - Brigida Jones - 03/09/2020 0921 EDT Sona called and she said that she needs to take the Crestor, she did take a different medicationway back that made her sick. Just wanted Nurse S.B. to know this. documented in this encounter Plan of Treatment Not on file documented as of this encounter Visit Diagnoses Not on filedocumented in this encounter Care Teams Alpaca Farmer Relationship Specialty Start Date End Date Jannette Perales NP [address] [place] [phone] PCP - General 11/13/17 documented as of this encounter
--- OUTSIDE RECORDS SUMMARY | 2024-07-09 00:17 | XMS_ITS | Encounter Summary ---
Author Organization [facility] Address [address] [place] [address] Care Team Providers Care Receiver Bulk System Name Role Phone Jannette Perales WINDOW GLAZIER Primary Care Provider [phone] Reason for Visit * Reason Comments Follow-up Transitioning from [facility] Encounter Details Date Type Department Care Team (Latest Contact Info) Description 02/08/2020 15:45 EDT Office Visit [facility] - [facility] Card[facility] Clinic [address] [place] [address] Luis Elaine MD [address] [facility] [address] [place] [address] Atherosclerosis of peoria coronary artery of peoria heart without angina pectoris (Primary Dx) Social History Tobacco Use Types [...] Sign Reading Time Taken Comments Blood Pressure 128/76 02/08/2020 1552 EDT Pulse 56 02/08/2020 1552 EDT Temperature - - Respiratory Rate 16 02/08/2020 1552 EDT Oxygen Saturation 95% 02/08/2020 1552 EDT Inhaled Oxygen Concentration - - Weight 74.4 kg (164 lb) 02/08/2020 1552 EDT Height - - Body Mass Index 32.03 09/14/2019 0951 EST documented in this encounter Progress Notes * Luis Elaine MD - 02/08/2020 1545 EDT [facility] CARDIOLOGY FOLLOW-UP VISIT Date of Service: 02/08/2020 Reason for Visit: Atherosclerosis of peoria coronary artery of peoria heart without angina pectoris[I25.10] Primary Care Provider: Jannette Devi SUBJECTIVE Patient ID: Sona Rodrigez, 1945 HPI 74 y.o. year-old female with brain aneurysm s/p clipping in the , YOLANDA on CPAP, gout, HTN, prediabtes, HFpEF and CAD s/p RCA PCI 2006. Sona Rodrigez comes in today feeling well. She denies any cardiac s/s. She does not have an exercise routine. She gardens. She does not feel limited in her activities from a cardiopulmonary standpoint. Patient denies CP, SOB, PND, edema, palpitations, syncope, claudication, focal deficits, bleeding, GI or symptoms. PFSH, Medications and Allergies: reviewed. Past Surgical History: Procedure Laterality Date ??? APPENDECTOMY ??? BRAIN SURGERY cerebral aneurysm repair ??? BREAST SURGERY Left mastectomy ??? CAROTID ARTERY STENTING ??? CORONARY ANGIOPLASTY WITH STENT PLACEMENT 2007 MELA-mid RCA. ??? HYSTERECTOMY ??? JOINT REPLACEMENT TKR ??? OTHER SURGICAL HISTORY RTC L ??? OTHER SURGICAL HISTORY RTC R ??? SPINE SURGERY scoliosis ??? TONSILLECTOMY ??? TOTAL HIP ARTHROPLASTY Left THR ??? TOTAL HIP ARTHROPLASTY Right THR Current Outpatient Medications: allopurinol (ZYLOPRIM) 100 mg tablet aspirin (ASPIRIN LOW DOSE) 81 mg EC tablet brinzolamide (AZOPT) 1 % ophthalmic suspension cholecalciferol, Vitamin D3, 1,000 unit tablet CRESTOR 20 mg tablet latanoprost (XALATAN) 0.005 % ophthalmic solution medical supply, miscellaneous (MISCELLANEOUS MEDICAL SUPPLY MISC) metoprolol (LOPRESSOR) 25 mg tablet mirtazapine (REMERON) 15 mg tablet spironolactone (ALDACTONE) 25 mg tablet timolol (TIMOPTIC-XE) 0.5 % ophthalmic gel-forming torsemide (DEMADEX) 20 mg tablet ZESTRIL 20 mg tablet No current facility-administered medications for this visit. Outpatient Medications Marked as Taking for the 02/08/20 encounter (Office Visit) with Luis Elaine MD Medication Sig ??? allopurinol (ZYLOPRIM) 100 mg tablet Take 1 Tab by mouth daily. ??? aspirin (ASPIRIN LOW DOSE) 81 mg EC tablet Take 81 mg by mouth daily. ??? brinzolamide (AZOPT) 1 % ophthalmic suspension Place 1 Drop into both eyes 2 times daily. ??? cholecalciferol, Vitamin D3, 1,000 unit tablet Take 1,000 Units by mouth daily. ??? CRESTOR 20 mg tablet Take 20 mg by mouth daily. ??? latanoprost (XALATAN) 0.005 % ophthalmic solution PLACE ONE DROP INTO BOTH EYES NIGHTLY ??? medical supply, miscellaneous (MISCELLANEOUS MEDICAL SUPPLY MIS) CPAP facemask Dx: obstructivesleep apnea -, Sig: pt is having difficulty with mask and needs new option Inhaled at bedtime ??? metoprolol (LOPRESSOR) 25 mg tablet Take 12.5 mg by mouth 2 times daily. ??? spironolactone (ALDACTONE) 25 mg tablet TAKE 1/2 TABLET BY MOUTH DAILY ??? timolol (TIMOPTIC-XE) 0.5 % ophthalmic gel-forming 1 Drop daily. in each affected eye ??? torsemide (DEMADEX) 20 mg tablet Take 1 Tab by mouth daily. ??? ZESTRIL 20 mg tablet Take by mouth daily. ALLERGIES: Dilaudid [hydromorphone]; Hydrocodone; Oxycodone; and Propine [dipivefrin] FAMILY HX: No premature CAD or brain aneurysm SOCIAL HX: Nonsmoker, rare alcohol ROS: A 10 point review of systems performed; pertinent positives as mentioned above, all others negative. OBJECTIVE VITAL SIGNS BP 128/76 Pulse 56 Resp 16 Wt 74.4 kg (164 lb) SpO2 95% BMI 32.03 kg/m?? Wt Readings from Last 3 Encounters: 09/14/19 74.8 kg (165 lb) 06/18/19 74.4 kg (164 lb) 03/16/18 73.5 kg (162 lb) BP Readings from Last 3 Encounters: 09/14/19 128/70 06/18/19 126/70 03/16/18 120/78 Pulse Readings from Last 3 Encounters: 09/14/19 51 06/18/19 52 03/16/18 68 PHYSICAL EXAM GENERAL: Pleasant, no acute distress. HEENT: Anicteric, mucous membranes moist. NECK: Supple, normal jugular venous pressure, brisk carotid upstrokes, no bruits. CHEST: Nontender. LUNGS: Clear to auscultation bilaterally, no rhonchi rales or wheezes. HEART: Regular rate and rhythm, normal S1-S2, no murmurs. ABDOMEN: Soft, nontender, nondistended, bowel sounds present, no bruits. EXTREM: No clubbing, cyanosis, edema, equal pulses. SKIN: Warm and dry, no rashes. NEURO: Alert and oriented x3, grossly intact DATA: Available records including laboratory and cardiac studies reviewed; pertinent findings are as follows. Lab Results Component Value Date HGB 13.0 01/07/2017 PLT 213 01/07/2017 No results found for: INR Lab Results Component Value Date CREATININE 1.19 (H) 09/08/2019 CALCGFR 44 09/08/2019 NA 143 09/08/2019 K 4.0 09/08/2019 No results found for: ALB, ALT, AST, GGT, ALKPHOS, BILITOT No results found for: TROPONINI, NTBNP Lab Results Component Value Date CHOL 110 02/10/2019 HDL 36 (L) 02/10/2019 LDL 41 (L) 02/10/2019 TRIG 166 02/10/2019 Lab Results Component Value Date HGBA1C 6.2 (H) 02/10/2019 TSH 0.97 01/07/2017 No results found for: IRON, FERRITIN, TRANSFERRIN, TIBC Echocardiogram 2016: EF 60-65%, DD w/ elevated LAP. Normal RV. Trivial AI. SPAP 25 mmHg. Stress test 2016: Normal, EF 75% ASSESSMENT & PLAN 1. CAD s/p PCI 2006 No angina or heart failure. Excellent lipid profile. Bradycardic on metoprolol and timolol. - continue asa - continue rosuvastatin - [...] as of this encounter Visit Diagnoses Diagnosis Atherosclerosis of peoria coronary artery of pe[place] heart without angina pectoris- Primary documented in this encounter Discontinued Medications Medication Sig Discontinue Reason Start Date End Da te mirtazapine (REMERON) 15 mg tabletIndications:Dysthy agapito,Primary insomnia TAKE ONE TABLET BY MOUTH AT BEDTIME Therapy completed 12/14/2019 02/08/2020 documented as of this encounter Care Teams Receiver Bulk System Relationship Specialty Start Date End Date Jannette Perales NP [address] [place] [phone] PCP - General 11/13/17 documented as of this encounter
--- OUTSIDE RECORDS SUMMARY | 2024-07-09 00:17 | XMS_ITS | Encounter Summary ---
Author Organization [facility] Address [address] [place] [address] Care Team Providers Care Eradicator Name Role Phone Jannette Perales NP Primary Care Provider [phone] Luis Elaine MD Unavailable [phone] Encounter Details Date Type Department Care Team (Late st Contact Info) Description 10/09/2020 Results Only Imaging [facility] [place] Results [address] [place] [address] Jannette Perales NP [address] [place] [address] Social History Tobacco Use Types [...] as of this encounter Miscellaneous Notes * Result Encounter Note - Jannette Devi APRN - 10/09/2020 0838 EDT Would you please let Sona know that her abdominal ultrasound was normal? No aneurysm, everythinglooks good! It may just be that being thinner her aorta is more prominent when she's laying down. No need for further follow up, unless she noticed a change. documented in this encounter Plan of Treatment Not on file documented as of this encounter Procedures Procedure Name Priority Date/Time Associated Diagnosis Comments US ABDOMINAL AORTA-ILIAC DUPLEX (NC) 10/09/2020 8:37 EDT documented in this encounter Results * US ABDOMINAL AORTA-ILIAC DUPLEX (NC) (10/09/2020 8:37 EDT) Anatomical Region Laterality Modality Other 10/09/2020 8:34 EDT Narrative 10/09/2020 8:37 EDT ? EXAM: ULTRASOUND/AORTA WELCOME TO [facility] EX. D/ (0758) ? CLINICAL INFORMATION: ? R19.00 PULSATILE ABDOMINAL MASS ? SCREEN FOR AAA ? WELCOME TO MEDICARE ? AORTA WELCOME TO MEDICARE ? Signs and Symptoms/Comments: ??R19.00 PULSATILE ABDOMINAL MASS, SCREEN ? FOR AAA , WELCOME TO MEDICARE ? Comparisons: None ? Technique: Ultrasound of the abdominal aorta was performed with color ? Doppler imaging. ? FINDINGS: ? The abdominal aorta is unremarkable. No aneurysm is identified. ? Aorta measurements: ? Proximal: 2.2 cm x 2.4 cm ? Middle: 1.7 cm x 1.8 cm ? Distal: 1.4 cm x 1.3 cm ? Common iliac arteries: ? Right: 0.8 cm x 0.9 cm ? Left: 0.9 cm x 0.8 cm ? IMPRESSION: ? No abdominal aortic aneurysm identified. ? REPORT SIGNED IN OTHER VENDOR SYSTEM 10/09/2020 ?Reported By: Edgar Ambrocio MD ? CC: ? Transcribed Date/Time: 10/09/2020 (0837) ? Corrosion Prevention Metal Sprayer: ? Printed Date/Time: 10/09/2020 (0837) ? PAGE 1 ? Signed Report ? Procedure Note Edgar Ambrocio MD - 10/09/2020 EXAM: [facility] ([facility]8) CLINICAL INFORMATION: R19.00 PULSATILE ABDOMINAL MASS SCREEN FOR AAA WELCOME TO MEDICARE AORTA WELCOME TO MEDICARE Signs and Symptoms/Comments: R19.00 PULSATILE ABDOMINAL MASS,SCREEN FOR AAA , WELCOME TO MEDICARE Comparisons: None Technique: Ultrasound of the abdominal aorta was performed withcolor Doppler imaging. FINDINGS: The abdominal aorta is unremarkable. No aneurysm is identified. Aorta measurements: Proximal: 2.2 cm x 2.4 cm Middle: 1.7 cm x 1.8 cm Distal: 1.4 cm x 1.3 cm Common iliac arteries: Right: 0.8 cm x 0.9 cm Left: 0.9 cm x 0.8 cm IMPRESSION: No abdominal aortic aneurysm identified. REPORT SIGNED IN OTHER VENDOR SYSTEM 10/09/2020 Reported By: Edgar Ambrocio MD CC: Transcribed Date/Time: 10/09/2020 (836) Corrosion Prevention Metal Sprayer: Printed Date/Time: 10/09/2020 (75) PAGE 1 Signed Report us Jannette Perales NP G VASCULAR ORDERABLES Final Result documented in this encounter Visit Diagnoses Not on filedocumented in this encounter Care Teams Eradicator Relationship Specialty Start Date End Date Jannette Perales NP [address] [place] [phone] PCP - General 11/13/17 Luis Elaine MD [address] [place] [address] [address] [place] [address] Cardiovascular Disease 03/05/22 documented as of this encounter
--- OUTSIDE RECORDS SUMMARY | 2024-07-09 00:17 | XMS_ITS | Encounter Summary ---
Author Organization [facility] Address [address] [place] [address] Care Team Providers Care Oil Pumper Name Role Phone Jannette Perales FLORENCIO Primary Care Provider [phone] Reason for Visit * Reason Comments Post-OP Follow Up 1st post op s/p renard michelle Encounter Details Date Type Department Care Team (Late st Contact Info) Description 01/01/2018 11:45 EDT Post-op Visit [facility] General Surgery - [address] [id number] Alejandro Calloway MD [address] [facility], [address] [place] [address] Gastroesophageal reflux disease without esophagitis (Primary Dx) Discharge Disposition: Auto Discharge Social History Tobacco Use Types Packs/Day Years [...] Sign Reading Time Taken Comments Blood Pressure 140/80 01/01/2018 1053 EDT Pulse 68 01/01/2018 1053 EDT Temperature - - Respiratory Rate - - Oxygen Saturation - - Inhaled Oxygen Concentration - - Weight 76.6 kg (168 lb 12.8 oz) 01/01/2018 1053 EDT Height 152.4 cm (5') 01/01/2018 1053 EDT Body Mass Index 32.97 01/01/2018 1053 EDT documented in this encounter Discharge Diagnoses Diagnosis K21.9 Gastro-esophageal reflux disease without esophagitis-K21.9[ICD-10-CM] documented in this encounter Discharge Disposition Disposition Code Departure Means Destination Auto Discharge documented in this encounter Progress Notes * Tatiana Stanley - 01/01/2018 1145 EDT [facility] General Surgery Services Patient Name: Sona Rodrigez Date: 01/01/2018 GERD-HRQL SCALE Patient symptoms are noted as follows: How bad is your heartburn? 0 = No symptoms Heartburn when lying down? 0 = No symptoms Heartburn when standing up? 0 = No symptoms Heartburn after meals? 0 = No symptoms Does heartburn change your diet? 3 = Symptoms bothersome everyday Does heartburnwake you from sleep? 0 = No symptoms Do you have difficulty swallowing? 0 = No symptoms Do you have pain with swallowing? 0 = No symptoms Do you have gassy or bloatingfeelings? 0 = No symptoms If you take medication, does it affect your daily life? 0 = No symptoms How satisfied are you with your present condition? Satisfied Total HRQL: 3 * Alejandro Calloway MD - 01/01/2018 1145 EDT Date of Service: 01/01/2018 Subjective: I saw Sona Rodrigez in the office today for follow-up several weeks status post laparoscopic Sharon fundoplication. She has no heartburn or regurgitation. She has some gas bloat and some excess flatus. She can belch. She has some dysphagia to peppers and scrambled eggs.. Her GERD quality of life score was 3 and she was satisfied with her present condition. Objective: On exam, her abdomen is soft, non-distended, and non-tender. Her incisions are healing well. Assessment: Status post laparoscopic Sharon fundoplication. is doing well and recovering nicely. I explained the importance of her lifting restriction in the early post-op period. Plan: Slowly advance the diet over time. Her dysphagia should resolve. She should avoid any heavy lifting for several weeks and then can resume activity at that time. I would like to see her back in the office for another post- operative check at the 3 month garo. Primary Care Provider: FANNY Herrera Referring Provider: FANNY Herrera documented in this encounter Plan of Treatment Not on file documented as of this encounter Visit Diagnoses Diagnosis Gastroesophageal reflux disease without esophagitis- Primary Esophageal reflux documented in this encounter Care Teams Oil Pumper Relationship Specialty Start Date End Date Jannette Perales NP [address] [place] [phone] PCP - General 11/13/17 documented as of this encounter
--- OUTSIDE RECORDS SUMMARY | 2024-07-09 00:17 | XMS_ITS | Encounter Summary ---
Author Organization [facility] Address [address] [place] [address] Care Team Providers Care Cable Machine Operator Name Role Phone Jannette Perales NP Primary Care Provider [phone] Luis Elaine MD Unavailable [phone] Reason for Visit * Reason Comments Other Encounter Details Date Type Department Care Team ([facility] st Contact Info) Description 06/23/2020 Refill [facility] Adult Primary Care - [place] [address] [place] [address] Jannette Perales NP [address] [place] [address] Other Social History Tobacco Use [...] ONE TABLET BY MOUTH EVERY DAY 90 Tab 3 06/24/2020 06/19/2021 documented in this encounter Plan of Treatment Not on file documented as of this encounter Visit Diagnoses Diagnosis Hyperuricemia Other abnormal blood chemistry documented in this encounter Discontinued Medications Medication Sig Discontinue Reason Start Date End Da te allopurinol (ZYLOPRIM) 100 mg tabletIndications:Hyperur icemia Take 1 Tab by mouth daily. 06/18/2019 06/24/2020 documented as of this encounter Care Teams Cable Machine Operator Relationship Specialty Start Date End Date Jannette Perales NP [address] [place] [address] PCP - General 11/13/17 Luis Elaine MD [address] [place] [address] [address] [place] [phone] Cardiovascular Disease 03/05/22 documented as of this encounter
--- OUTSIDE RECORDS SUMMARY | 2024-07-09 00:17 | XMS_ITS | Encounter Summary ---
Author Organization [facility] Address [address] [place] [address] Care Team Providers Care Demand Inspector Name Role Phone Jannette Perales NP Primary Care Provider [phone] Encounter Details Date Type Department Care Team (Late st Contact Info) Description 06/03/[address] [facility] - Main [place] [address] [place], [place] [address] Jannette Perales NP [address] [place] [address] Social History Tobacco Use Types [...] Procedure Name Priority Date/Time Associated Diagnosis Comments VIT D, 25-HYDROXY - [facility] Routine 06/03/2018 8:55 EST LIPID PROFILE (INCLUDES CHOLESTEROL, TRIGLYCERIDES, HDL, LDL) Routine 06/03/2018 8:55 EST COMPREHENSIVE METABOLIC PANEL (CMP) Routine 06/03/2018 8:55 EST documented in this encounter Results * (ABNORMAL) LIPID PROFILE (INCLUDES CHOLESTEROL, TRIGLYCERIDES, HDL, LDL) (06/03/2018 8:55 EST) Triglyceride 182 <150 mg/dL 06/03/2018 10:59 [facility] Comment: Adult: Normal: ?<150 mg/dl ? Borderline High: 150-199 mg/dl ? High: ?200-499 mg/dl ? Very High: >lo=700 Cholesterol 119 <200 mg/dL 06/03/2018 10:59 [facility] Comment: Acceptable: ??<200 Borderline: ??200-239 High: ?> or = 240 Chol/HDL Ratio 3.1 0 - 4.5 06/03/2018 10:59 [facility] Comment: DESIRABLE RATIO IS LESS THAN 4.1 PATIENTS ARE CONSIDERED AT RISK: WOMEN RATIO >5 MEN RATIO >6 FASTING? - [facility] Yes 8 8:55 [facility] HDL 38(L) 40 - 60 mg/dL 06/03/2018 10:59 [facility] Comment: ?? Reference Range Low: ? < 40 ??mg/dL Normal: ??40-60 mg/dL High: ?>= 60 mg/dL LDL CHOLESTEROL - [facility] 45(L) 60 - 100 mg/dL 06/03/2018 10:59 [facility] Non HDL Cholesterol 81 mg/dl 06/03/2018 10:59 [facility] Comment: Desirable: ?Less than 130 Borderline High: ??130-159 High: ? 160-189 Very High: ?Greater than or equal to 190 06/03/2018 8:55 EST 06/03/2018 8:55 EST Narrative [facility] - 06/03/2018 10:59 EST Does PT Have a Latex Allergy? NO us Jannette Perales NP CHEMISTRY & BLOOD GAS ORDERABLES Final Result [facility] * (ABNORMAL) COMPREHENSIVE METABOLIC PANEL (CMP) (06/03/2018 8:55 EST) Albumin % 4.2 3.4 - 4.9 g/dL 06/03/2018 10:59 [facility] ALKALINE PHOSPHATASE - [facility] 42 38 - 126 U/L 06/03/2018 10:59 [facility] BILIRUBIN TOTAL 0.5 0.2 - 1.3 mg/dL 06/03/2018 10:59 [facility] BUN - [facility] 45(H) 10 - 26 mg/dL 06/03/2018 10:59 [facility] CALCIUM - [facility] 9.3 8.5 - 10.5 mg/dL 06/03/2018 10:59 [facility] Chloride 103 96 - 110 mmol/L 06/03/2018 10:59 [facility] CO2 Total 21(L) 22 - 32 mEq/L 06/03/2018 10:59 [facility] CREATININE 1.51(H) 0.52 - 1.04 mg/dL 06/03/2018 10:59 [facility] eGFR 34 06/03/2018 10:59 [facility] Comment: Stage 3: Moderate renal impairment is defined as GFR 30-59 Multiply result by 1.210 for patients. eGFR calculated using the IDMS-traceable MDRD Study Equation. ??(effective 05/30/2014) Anion Gap 13 0 - 18 06/03/2018 10:59 [facility] GLUCOSE - [facility] 95 70 - 100 mg/dL 06/03/2018 10:59 [facility] Potassium 4.4 3.5 - 5.0 mEq/L 06/03/2018 10:59 [facility] Sodium 137 136 - 145 mEq/L 06/03/2018 10:59 [facility] TOTAL PROTEIN - [facility] 6.8 6.2 - 8.2 gm/dL 06/03/2018 10:59 [facility] SGOT/AST - [facility] 25 14 - 36 U/L 06/03/2018 10:59 [facility] SGPT/ALT - [facility] 32 9 - 52 U/L 8 10:59 [facility] 06/03/2018 8:55 EST 06/03/2018 8:55 EST Narrative [facility] - 06/03/2018 10:59 EST Does PT Have a Latex Allergy? NO Jannette Perales LOAD OUT PERSON CHEMISTRY & BLOOD GAS ORDERABLES Final Result Performing Organization Address City/[facility]/ZIP Co de Phone Number [facility] * VIT D, 25-HYDROXY - [facility] (06/03/2018 8:55 EST) VIT D, 25 HYDROXY - [facility] 49.7 30 - 100 ng/ml 06/03/2018 11:14 EST [facility] Comment: ? 25-Hydroxy D Total (D2+D3) ?Expected Values Deficient: ?<20 ng/ml Insufficient: ? 20- <30 ng/ml Sufficient: ? 30-100 ng/ml Potential intoxication: >100 ng/ml 06/03/2018 8:55 EST 06/03/2018 8:55 EST Narrative [facility] - 06/03/2018 11:14 EST Does PT Have a Latex Allergy? NO Jannette Perales LOAD OUT PERSON CHEMISTRY & BLOOD GAS ORDERABLES Final Result [facility] documented in this encounter Visit Diagnoses Not on filedocumented in this encounter Care Teams Demand Inspector Relationship Specialty Start Date End Date Jannette Perales NP [address] [place] [phone] PCP - General 11/13/17 documented as of this encounter
--- OUTSIDE RECORDS SUMMARY | 2024-07-09 00:17 | XMS_ITS | Encounter Summary ---
Author Organization [facility] Address [address] [place] [address] Care Team Providers Care Lpc Name Role Phone Jannette Perales DEPARTMENT CHAIR Primary Care Provider [phone] Encounter Details Date Type Department Care Team (Late st Contact Info) Description 09/07/2020 Results Only [facility] Adult Primary Care - [place] [address] [place] [address] Jannette Perales NP [address] [place] [address] Social History Tobacco Use Types [...] Diagnosis Comments BASIC METABOLIC PANEL (BMP) Routine 09/07/2020 9:14 EST documented in this encounter Results * (ABNORMAL) BASIC METABOLIC PANEL (BMP) (09/07/2020 9:14 EST) BUN [facility] 37(H) 10 - 26 mg/dL 09/07/2020 10:02 EST [facility] CALCIUM - [facility] 9.6 8.5 - 10.5 mg/dL 09/07/2020 10:02 [facility] Chloride 105 96 - 110 mmol/L 09/07/2020 10:02 [facility] CO2 Total 21(L) 22 - 32 mEq/L 09/07/2020 10:02 [facility] CREATININE 1.38(H) 0.52 - 1.04 mg/dL 09/07/2020 10:02 [facility] eGFR 37 09/07/2020 10:02 [facility] Comment: Stage 3: Moderate renal impairment is defined as GFR 30-59 Multiply result by 1.210 for patients. eGFR calculated using the IDMS-traceable MDRD Study Equation. ??(effective 05/30/2014) Anion Gap 15 0 - 18 09/07/2020 10:02 [facility] GLUCOSE - [facility] 110(H) 70 - 100 mg/dL 09/07/2020 10:02 [facility] Potassium 4.3 3.5 - 5.0 mEq/L 09/07/2020 10:02 [facility] Sodium 141 136 - 145 mEq/L 09/07/2020 10:02 [facility] 09/07/2020 9:14 EST 09/07/2020 9:14 EST Narrative [facility] - 09/07/2020 10:02 EST Does PT Have a Latex Allergy? NO us Jannette Perales DEPARTMENT CHAIR CHEMISTRY & BLOOD GAS ORDERABLES Final Result [facility] [address] [place] [address] documented in this encounter Visit Diagnoses Not on filedocumented in this encounter Care Teams Lpc Relationship Specialty Start Date End Date Jannette Perales NP [address] [place] [phone] PCP - General 11/13/17 documented as of this encounter
--- OUTSIDE RECORDS SUMMARY | 2024-07-09 00:17 | XMS_ITS | Encounter Summary ---
Author Organization [facility] Address [address] [place] [address] Care Team Providers Care Physical Plant Manager Name Role Phone Jannette Perales NP Primary Care Provider [phone] Encounter Details Date Type Department Care Team (Late st Contact Info) Description 10/01/2019 Abstract [facility] Adult Primary Care - [place] [address] [place] [address] Cht Panel Coordinator, [facility] Adult Social History Tobacco Use Types Packs/Day Years [...] Procedure Name Priority Date/Time Associated Diagnosis Comments COLONOSCOPY PROCEDURE Routine 04/21/2008 documented in this encounter Results * COLONOSCOPY PROCEDURE (04/21/2008) Colonoscopy Colonoscopy, External Comment:SIgmoid spasm, other bacon normal exam, repeat in 10 yrs Anatomical Region Laterality Modality Endoscopy us Historical Provider GI PROCEDURE ORDERABLES F inal Result documented in this encounter Visit Diagnoses Not on filedocumented in this encounter Care Teams Physical Plant Manager Relationship Specialty Start Date End Date Jannette Perales NP [address] [place] [phone] PCP - General 11/13/17 documented as of this encounter
--- OUTSIDE RECORDS SUMMARY | 2024-07-09 00:17 | XMS_ITS | Encounter Summary ---
Author Organization [facility] Address [address] [place] [address] Care Team Providers Care Mail Messenger Contractor Name Role Phone Jannette Perales TRANSPORTATION ENGINEERING TECHNICIAN Primary Care Provider [phone] Reason for Visit * Reason Comments Flu Vaccine High Dose Encounter Details Date Type Department Care Team ([facility] st Contact Info) Description 06/13/2020 9:30 EST Nurse Only [facility] Adult Primary [place] - [place] [address] [place] [phone] Nurse, [facility] [place] [facility] [place] Flu vaccine need (Primary Dx) Social History Tobacco Use Types [...] on file documented as of this encounter Progress Notes * Lisa Jacob, SHERITA - 06/13/2020 8815 EST Are you allergic to eggs or chicken protein? No Are you allergic to any vaccine components (Thimerisol)? No Have you ever had a serious reaction to a previous dose of Influenza vaccine? No Do you have a history of Guillain-[place] Syndrome(GBS)? No Do you have Cancer, Leukemia, AIDS, Diabetes or any other immune system problem? No Are you currently ? No Administered the HIGH DOSE Flu vaccine documented in this encounter Plan of Treatment Not on file documented as of this encounter Visit Diagnoses Diagnosis Flu vaccine need- Primary Need for prophylactic vaccination and inoculation against influenza documented in this encounter Orders Immunization/Injection Count Last Ordered Date First Ordered Date INFLUENZA VACCINE HIGH DOSE (FLUZONE HIGH DOSE) PF 0.7 ML IM (65 YRS+) 1 07/07/2020 documented in this encounter Care Teams Mail Messenger Contractor Relationship Specialty Start Date End Date Jannette Perales NP [address] [place] [phone] PCP - General 11/13/17 documented as of this encounter
--- OUTSIDE RECORDS SUMMARY | 2024-07-09 00:17 | XMS_ITS | Encounter Summary ---
Author Organization [facility] Address [address] [place] [address] Care Team Providers Care Varnish Cooker Name Role Phone Jannette Perales NP Primary Care Provider [phone] Reason for Referral * Laboratory Services (Routine/Next Available) - New Request Specialty Diagnoses / Procedures Referred By Contac t Referred To Contact Diagnoses Routine medical exam Stage 3a chronic kidney disease ([facility]) Procedures COMPLETE BLOOD COUNT AND DIFFERENTIAL Jannette Perales NP Phone: tel: fax: Referral ID Status Reason Start Date Expiration Date V isits Requested Visits Authorized [id number] New Request 09/16/2020 1 1 * Laboratory Services (Routine/Next Available) - New Request Specialty Diagnoses / Procedures Referred By Contac t Referred To Contact Diagnoses Routine medical exam Gastroesophageal reflux disease without esophagitis Stage 3a chronic kidney disease ([facility]) Procedures COMPREHENSIVE METABOLIC PANEL (CMP) Jannette Perales NP Phone: tel: fax: Referral ID Status Reason Start Date Expiration Date V isits Requested Visits Authorized [id number] New Request 09/16/2020 1 1 * Laboratory Services (Routine/Next Available) - New Request Specialty Diagnoses / Procedures Referred By Contac t Referred To Contact Diagnoses Routine medical exam Mixed hyperlipidemia Procedures LIPID PROFILE (INCLUDES CHOLESTEROL, TRIGLYCERIDES, HDL, LDL) Jannette Perales NP Phone: tel: fax: Referral ID Status Reason Start Date Expiration Date V isits Requested Visits Authorized [id number] New Request 09/16/2020 1 1 Reason for Visit * Reason Comments Medicare Annual Wellness Visit Encounter Details Date Type Department Care Team ([facility] st Contact Info) Description 09/15/2020 13:30 EST Office Visit [facility] Adult Primary Care - [place] [address] [place], [place] [phone] Jannette Perales NP [address] [place] [phone] Routine medical exam (Primary Dx); Gastroesophageal reflux disease without esophagitis; Stage 3a chronic kidney disease; Dysthymia; S/P cerebral aneurysm repair; S/P coronary artery stent placement; Obstructive sleep apnea; Mixed hyperlipidemia; Essential (primary) hypertension; Encounter for screening mammogram for malignant neoplasm of breast; Pulsatile abdominal mass; Screening for osteoporosis; Postmenopausal; Other specified symptoms and signs involving the circulatory and respiratory systems ; History of left breast cancer Social History Tobacco Use Types Packs/Day Years [...] Sign Reading Time Taken Comments Blood Pressure 142/90 09/15/2020 1329 EST Pulse 62 09/15/2020 1329 EST Temperature 35.9 ??C (96.7 ??F) 09/15/2020 1329 EST Respiratory Rate 16 09/15/2020 1329 EST Oxygen Saturation 97% 09/15/2020 1329 EST Inhaled Oxygen Concentration - - Weight 75.8 kg (167 lb) 09/15/2020 1329 EST Height 149.9 cm (4' 11) 09/15/2020 1329 EST Body Mass Index 33.73 09/15/2020 1329 EST documented in this encounter Progress Notes * Jannette Devi, RUG CLEANER HELPER - 09/15/2020 1330 EST Assessment/Plan: Sona is here for an annual wellness visit. We reviewed home safety, function with regards to activities of daily living, advanced directives/end-of-life planning, and exercise. The patient was counseled appropriately. We reviewed vaccines and preventative screenings and the patient was provided with a written summary. Diagnoses and all orders for this visit: Routine medical exam Gastroesophageal reflux disease without esophagitis Managed with diet. Stage 3a chronic kidney disease Stable. Dysthymia Dealing with more stress lately with her 's new health issues. She feels that she is holdingup okay all things considered but understands she can reach out to the office if her moods are worsening. S/P cerebral aneurysm repair S/P coronary artery stent placement Obstructive sleep apnea Managed with CPAP. Mixed hyperlipidemia Last lipids with good risk ratio, low HDL. Triglycerides were little elevated, she is been working on lowering her sugar and carb intake. Essential (primary) hypertension Blood pressure a bit elevated today, she is very anxious about her 's health issues. She will continue to monitor at home, her blood pressures generally run 120s over 70s. Encounter for screening mammogram for malignant neoplasm of breast - MAMMO BREAST SCREENING MICHAEL RIGHT; Future She did complete one last mammogram and then consider aging out. Pulsatile abdominal mass - US ABDOMINAL AORTA-ILIAC DUPLEX; Future New finding of a slightly pulsatile mass in her epigastric area. Will check ultrasound to rule out aortic aneurysm. Screening for osteoporosis - DXA DUAL XRAY ABSORPTIOMETRY FOR BONE DENSITY ([facility] Performed); Future Postmenopausal - DXA DUAL XRAY ABSORPTIOMETRY FOR BONE DENSITY ([facility] Performed); Future Other specified symptoms and signs involving the circulatory and respiratory systems - US ABDOMINAL AORTA-ILIAC DUPLEX; Future History of left breast cancer Other orders - timoloL maleate Health Maintenance Due Topic Date Due ??? Social Determinants Of Health (SDOH) 1944 ??? Behavioral Health Screen 1956 ??? Advance Directive 1962 ??? Preventive Care Visit 1962 ??? Shingles Immunization (1 of 2) 1994 ??? Fall Risk Screening 2009 ??? Osteoporosis Screening 2009 ??? Colorectal Cancer Screening 04/21/2018 ??? Hepatitis C Screen 06/18/2019 Subjective: HPI: Sona is here for a Medicare wellness visit. MAMMO: 02/2019 nml, hx L BCA w mastecomy. Would like one more mammo before stopping. DXA Due [place] 2007 AD: Given forms today SOCIAL: Her has been developing some neurologic issues recently, and may be diagnosed with ALS. They are going to [facility] shortly for further evaluation. The kids are helping out around the house. Sona is less active since she is caretaking her more. Review of Systems Reviewed wellness screening questions; see scanned form. Patient Active Problem List Diagnosis ??? Gastroesophageal reflux disease without esophagitis ??? CKD (chronic kidney disease) stage 3, GFR 30-59 ml/min ??? Depression ??? Diastolic dysfunction ??? Essential [...] spont subarachnoid intracranial hemorrhage d/t cerebral aneurysm ([facility]) Outpatient Medications Marked as Taking for the 09/15/20 encounter (Office Visit) with Jannette Devi APRN Medication Sig Dispense Refill ??? allopurinoL (ZYLOPRIM) 100 mg tablet TAKE ONE TABLET BY MOUTH EVERY DAY 90 Tab 3 ??? aspirin (ASPIRIN LOW DOSE) 81 mg EC tablet Take 81 mg by mouth daily. ??? atorvastatin (LIPITOR) 20 mg tablet Take 1 Tab by mouth daily. 30 Tab 11 ??? brinzolamide (AZOPT) 1 % ophthalmic suspension Place 1 Drop into both eyes 2 times daily. ??? cholecalciferol, Vitamin D3, 1,000 unit tablet Take 1,000 Units by mouth daily. ??? latanoprost (XALATAN) 0.005 % ophthalmic solution PLACE ONE DROP INTO BOTH EYES NIGHTLY 11 ??? metoprolol (LOPRESSOR) 25 mg tablet Take 0.5 Tabs by mouth 2 times daily. 90 Tab 3 ??? spironolactone (ALDACTONE) 25 mg tablet TAKE 1/2 TABLET BY MOUTH DAILY 45 Tab 3 ??? [DISCONTINUED] timolol (TIMOPTIC-XE) 0.5 % ophthalmic gel-forming 1 Drop daily. in each affected eye ??? torsemide (DEMADEX) 20 mg tablet Take 1 Tab by mouth daily. 90 Tab 3 ??? ZESTRIL 20 mg tablet Take 0.5 Tabs by mouth daily. *BRAND NAME ONLY* 90 Tab 3 Past Medical History: Diagnosis Date ??? Arthritis Advanced OA bilat knees ??? Cancer ([facility]) ??? Cerebral aneurysm ??? Cerebral artery occlusion with cerebral infarction ([facility]) ??? Condition not found Question of gout,05/2014 ??? Heartburn ??? History of left breast cancer '92 s/p left modified mastectomy (saline implant) ??? Hypertension ??? IGT (impaired glucose tolerance) ??? NAFLD (nonalcoholic fatty liver disease) 2004 ??? Right rotator cuff tear 10/2005 s/p repair ??? SAH (subarachnoid hemorrhage) ([facility]) '88 s/p clipping LMCA/ACOM anuerysm ??? Scoliosis s/p Diallo Rods ??? Sleep apnea Past Surgical History: Procedure Laterality Date ??? APPENDECTOMY ??? BRAIN SURGERY [place] ??? BREAST SURGERY Left mastectomy ??? CORONARY [...] file Occupational History ??? Not on file Social Needs ??? Financial resource strain: Not on file ??? Food insecurity Worry: Not on file Inability: Not on file ??? Transportation needs Medical: Not on file Non-medical: Not on file Tobacco Use ??? Smoking status: Never Smoker ??? Smokeless tobacco: Never Used Substance and Sexual Activity ??? Alcohol use: Yes Alcohol/week: 2.0 standard drinks Types: 2 Cans of beer per week ??? Drug use: No ??? Sexual activity: Not on file Lifestyle ??? Physical activity Days per week: Not on file Minutes per session: Not on file ??? Stress: Not on file Relationships ??? Social connections Talks on phone: Not on file Gets together: Not on file Attends druze service: Not on file Active member of club or organization: Not on file Attends meetings of clubs or organizations: Not on file Relationship status: Not on file ??? Intimate partner violence Fear of current or ex partner: Not on file Emotionally abused: Not on file Physically abused: Not on file Forced sexual activity: Not on file Other Topics Concern ??? Not on file Social History Narrative ??? Not on file Objective: VS: Vitals: 09/15/20 1329 BP: (!) 142/90 BP Cuff Location: Right arm BP Patient Position: Sitting BP Cuff Sizes: Adult, regular Pulse: 62 Resp: 16 Temp: 35.9 ??C (96.7 ??F) SpO2: 97% Weight: 75.8 kg (167 lb) Height: (!) 149.9 cm (59) Body mass index is 33.73 kg/m??. Physical Exam: Constitutional: No distress. Cardiovascular: Normal rate, regular rhythm and normal heart sounds. Pulmonary/Chest: Effort normal and breath sounds normal. Breast: Right breast without dominant mass, left breast status postmastectomy, well-healed scars present. No masses appreciated. No axillary lymphadenopathy bilaterally. Abdominal: Soft. No distension. No tenderness. Epigastric slightly pulsatile mass appreciated. No bruit heard. Musculoskeletal: No edema. Neurological: Alert. Skin: Skin is warm and dry. Psychiatric: Normal mood and affect. Behavior is normal. Speech recognition software was used to complete this progress note. Typographical errors may be present. documented in this encounter Plan of Treatment Not on file documented as of this encounter Results * COMPLETE BLOOD COUNT AND DIFFERENTIAL (09/15/2021 9:01 EST) WBC 5.88 4.00 - 12.40 K/cmm 09/15/2021 9:21 [facility] RBC 4.46 3.86 - 5.04 M/cmm 09/15/2021 9:21 [facility] Hemoglobin 13.7 11.6 - 15.2 gm/dL 09/15/2021 9:21 [facility] HCT 42.6 34.9 - 44.4 % 09/15/2021 9:21 [facility] MCV 96 81 - 98 fl 09/15/2021 9:21 [facility] MCH 30.7 26.7 - 33.3 pg 09/15/2021 9:21 [facility] MCHC 32.2 32.1 - 35.9 gm/dL 09/15/2021 9:21 [facility] RDW-CV 13.8 <14.7 % 09/15/2021 9:21 [facility] RDW-SD 48.6 <50.4 fl 09/15/2021 9:21 [facility] PLT 220 141 - 377 K/cmm 09/15/2021 9:21 [facility] MPV 11.0 9.5 - 12.7 fl 09/15/2021 9:21 [facility] % Neutrophils 61.3 % 09/15/2021 9:21 [facility] % Lymphocytes 24.7 % 09/15/2021 9:21 [facility] % Monocytes 9.2 % 09/15/2021 9:21 [facility] % Eosinophils 3.9 % 09/15/2021 9:21 [facility] % Basophils 0.7 % 09/15/2021 9:21 [facility] % Immature Grans 0.2 % 09/15/19 9:21 [facility] Absolute Neutrophils 3.61 2.20 - 8.85 K/cmm 09/15/2021 9:21 [facility] Absolute Lymphocytes 1.45 1.09 - 3.30 K/cmm 09/15/2021 9:21 [facility] Absolute Monocytes 0.54 0.10 - 0.80 K/cmm 09/15/2021 9:21 [facility] Absolute Eosinophils 0.23 0.03 - 0.61 K/cmm 09/15/2021 9:21 [facility] ABS Basophils 0.04 0.01 - 0.11 K/cmm 09/15/2021 9:21 [facility] Absolute Immature Grans 0.01 0.00 - 0.06 K/cmm 09/15/2021 9:21 [facility] Type of Differential: Auto 09/15/2021 9:21 [facility] Blood VENOUS BLOOD / Unknown Venipuncture / Unknown 09/15/2021 9:01 EST 09/15/2021 9:09 EST us Jannette Perales NP PACKAGES & DNA PROBE ORDERABLES Final Result [facility] [address] [place] [address] * (ABNORMAL) COMPREHENSIVE METABOLIC PANEL (CMP) (09/15/2021 9:01 EST) Sodium 141 136 - 145 mmol/L 09/15/2021 10:16 [facility] Potassium 4.5 3.5 - 5.0 mmol/L 09/15/2021 10:16 [facility] Chloride 106 96 - 110 mmol/L 09/15/2021 10:16 [facility] CO2 Total 20(L) 22 - 32 mmol/L 09/15/2021 10:16 [facility] Glucose 118(H) 70 - 100 mg/dL 09/15/2021 10:16 [facility] BUN 53(H) 10 - 26 mg/dL 09/15/2021 10:16 [facility] Creatinine 1.65(H) 0.52 - 1.04 mg/dL 09/15/2021 10:16 [facility] eGFR 30(L) >60 mL/min/1.7 3m2 09/15/2021 10:16 [facility] Total Protein 7.4 6.3 - 8.2 g/dL 09/15/2021 10:16 [facility] Albumin 4.8 3.4 - 4.9 g/dL 09/15/2021 10:16 [facility] Alkaline Phosphatase 64 38 - 126 U/L 09/15/2021 10:16 [facility] AST 26 15 - 46 U/L 09/15/2021 10:16 [facility] ALT 14 <35 U/L 09/15/2021 10:16 [facility] Bilirubin, Total 0.5 <1.4 mg/dL 09/15/19 10:16 [facility] Calcium 9.5 8.5 - 10.5 mg/dL 09/15/2021 10:16 [facility] Albumin/Globulin Ratio 1.8 1.0 - 2.5 09/15/2021 10:16 [facility] Anion Gap 15(H) 5 - 14 09/15/2021 10:16 [facility] Blood VENOUS BLOOD / Unknown Venipuncture / Unknown 09/15/2021 9:01 EST 09/15/2021 9:10 EST us Jannette Perales NP CHEMISTRY & BLOOD GAS ORDERABLES Final Result [facility] [address] [place] [address] * LIPID PROFILE (INCLUDES CHOLESTEROL, TRIGLYCERIDES, HDL, LDL) (09/15/2021 9:01 EST) Cholesterol 153 See Note mg/dL 09/15/2021 10:16 [facility] Comment: Acceptable: ?<200 mg/dL Borderline High: 200-239 mg/dL High: ?> or = 240 mg/dL HDL 32 See Note mg/dL 09/15/2021 10:16 [facility] Comment: Low: ? <40 mg/dL Normal: ??40-60 mg/dL High: ?>60 mg/dL LDL, Calculated 71 See Note mg/dL 09/15/2021 10:16 [facility] Comment: Optimal: ? <100 mg/dL Near Optimal: ?100-129 mg/dL Borderline High: 130-159 mg/dL High: ?160-189 mg/dL Very High: ? > or = 190 mg/dL Triglyceride 248 See Note mg/dL 09/15/2021 10:16 [facility] Comment: Normal: ? <150 mg/dL Borderline High: ??150 - 199 mg/dL High: ? 200 - 499 mg/dL Very High: ?> or = 500 mg/dL Chol/HDL Ratio 4.8 See Note 09/15/2021 10:16 [facility] Comment: NOTE: Desirable Ratio = <4.1 Patient At Risk Ratio = >5.0(Males) ?>6.0(Females) Non HDL Cholesterol 121 See Note mg/dL 09/15/2021 10:16 [facility] Comment: Desirable: ?<130 mg/dL Borderline High: ??130-159 mg/dL High: ? 160-189 mg/dL Very High: ?> or = 190 mg/dL Blood VENOUS BLOOD / Unknown Venipuncture / Unknown 09/15/2021 9:01 EST 09/15/2021 9:10 EST Jannette Perales NP CHEMISTRY & BLOOD GAS ORDERABLES Final Result [facility] [address] [place] [address] documented in this encounter Visit Diagnoses Diagnosis Routine medical exam- Primary Routine general medical examination at a health care facility Gastroesophageal reflux disease without esophagitis Esophageal reflux Stage 3a chronic kidney disease ([facility]) Dysthymia Dysthymic disorder S/P cerebral aneurysm repair Other postprocedural status S/P coronary artery stent placement Postsurgical percutaneous transluminal coronary angioplasty status Obstructive sleep apnea Obstructive sleep apnea (adult) (pediatric) Mixed hyperlipidemia Essential (primary) hypertension Unspecified essential hypertension Encounter for screening mammogram for malignant neoplasm of breast Other screening mammogram Pulsatile abdominal mass Abdominal or pelvic swelling, mass or lump, unspecified site Screening for osteoporosis Special screening for osteoporosis Postmenopausal Asymptomatic postmenopausal status (age-related) (natural) Other specified symptoms and signs involving the circulatory and respiratory systems History of left breast cancer documented in this encounter Discontinued Medications Medication Sig Discontinue Reason Start Date End Da te medical supply, miscellaneous (MISCELLANEOUS MEDICAL SUPPLY MISC) CPAP facemask Dx: obstructive sleep apnea -, Sig: pt is having difficulty with mask and needs new option Inhaled at bedtime Therapy completed 09/15/2020 timolol (TIMOPTIC-XE) 0.5 % ophthalmic gel-forming 1 Drop daily. in each affected eye Duplicate order 09/15/2020 documented as of this encounter Historical Medications * This list may reflect changes made after this encounter. Medication Sig Dispense Quantity Refills Last Filled Start D ate End Date timolol (TIMOPTIC) 0.5 % ophthalmic solution 09/11/2020 added in this encounter Care Teams Varnish Cooker Relationship Specialty Start Date End Date Jannette Perales NP [address] [place] [phone] PCP - General 11/13/17 documented as of this encounter
--- OUTSIDE RECORDS SUMMARY | 2024-07-09 00:17 | XMS_ITS | Encounter Summary ---
Author Organization [facility] Address [address] [place] [address] Care Team Providers Care Dry Cleaning Machine Operator Helper Name Role Phone Jannette Perales BELT LOOP CUTTER Primary Care Provider [phone] Encounter Details Date Type Department Care Team (Late st Contact Info) Description 09/08/2019 Results Only [facility] Adult Primary Care - [place] [address] [place] [address] Jannette Perales NP [address] [place] [phone] Social History Tobacco Use Types [...] Diagnosis Comments BASIC METABOLIC PANEL (BMP) Routine 09/08/2019 8:39 EST documented in this encounter Results * (ABNORMAL) BASIC METABOLIC PANEL (BMP) (09/08/2019 8:39 EST) BUN - [facility] 28(H) 10 - 26 mg/dL 09/08/2019 10:00 [facility] CALCIUM - [facility] 9.5 8.5 - 10.5 mg/dL 09/08/2019 10:00 [facility] Chloride 108 96 - 110 mmol/L 09/08/2019 10:00 [facility] CO2 Total 25 22 - 32 mEq/L 09/08/2019 10:00 [facility] CREATININE 1.19(H) 0.52 - 1.04 mg/dL 09/08/2019 10:00 [facility] eGFR 44 09/08/2019 10:00 [facility] Comment: Stage 3: Moderate renal impairment is defined as GFR 30-59 Multiply result by 1.210 for patients. eGFR calculated using the IDMS-traceable MDRD Study Equation. ??(effective 05/30/2014) Anion Gap 10 0 - 18 09/08/2019 10:00 [facility] GLUCOSE - [facility] 101(H) 70 - 100 mg/dL 09/08/2019 10:00 [facility] Potassium 4.0 3.5 - 5.0 mEq/L 09/08/2019 10:00 [facility] Sodium 143 136 - 145 mEq/L 09/08/2019 10:00 [facility] 09/08/2019 8:39 EST 09/08/2019 8:44 EST Narrative [facility] - 09/08/2019 10:00 EST Does PT Have a Latex Allergy? NO us Jannette Perales NP CHEMISTRY & BLOOD GAS ORDERABLES Final Result [facility] documented in this encounter Visit Diagnoses Not on filedocumented in this encounter Care Teams Dry Cleaning Machine Operator Helper Relationship Specialty Start Date End Date Jannette Perales NP [address] [place] [phone] PCP - General 11/13/17 documented as of this encounter
--- OUTSIDE RECORDS SUMMARY | 2024-07-09 00:17 | XMS_ITS | Encounter Summary ---
Author Organization [facility] Address [address] [place] [address] Care Team Providers Care Inventory Audit Clerk Name Role Phone Jannette Perales FLORENCIO Primary Care Provider [phone] Reason for Visit * Reason Comments Other Encounter Details Date Type Department Care Team (Late st Contact Info) Description 12/31/2019 Refill [facility] [address] [place] [address] Keon Delgado MD [address] [place] [address] [place] [address] Other Social History Tobacco Use [...] TABLET BY MOUTH DAILY 45 Tab 3 12/31/2019 12/28/2020 documented in this encounter Miscellaneous Notes * Telephone Encounter - Fuentes Vargas RN - 12/31/2019 0841 EDT UTD for office visit. Rx refill sent in for patient. documented in this encounter Plan of Treatment Not on file documented as of this encounter Visit Diagnoses Not on filedocumented in this encounter Discontinued Medications Medication Sig Discontinue Reason Start Date End Da te spironolactone (ALDACTONE) 25 mg tablet Take 0.5 Tabs by mouth daily for 90 days. 07/05/2019 12/31/2019 documented as of this encounter Care Teams Inventory Audit Clerk Relationship Specialty Start Date End Date Jannette Perales NP [address] [place] [address] PCP - General 11/13/17 documented as of this encounter
--- OUTSIDE RECORDS SUMMARY | 2024-07-09 00:17 | XMS_ITS | Encounter Summary ---
Author Organization [facility] Address [address] [place] [address] Care Team Providers Care Hide Buyer Name Role Phone Jannette Perales FLORENCIO Primary Care Provider [phone] Encounter Details Date Type Department Care Team (Latest Contact Info) Description 02/26/2019 7:56 EDT - 02/26/2019 23:59 EDT Hospital Encounter [facility] [address] [place] [address] Unknown, Provider, MD Discharge Disposition: Home or Self Care Social History Tobacco Use Types Packs/Day Years [...] on file documented as of this encounter Medications at Time of Discharge brinzolamide (AZOPT) 1 % ophthalmic suspension Place 1 Drop into both eyes 2 times daily. cholecalciferol, Vitamin D3, 1,000 unit tablet Take 1 Tablet by mouth daily. acetaminophen (TYLENOL) 500 mg tablet Take 500 mg by mouth every 6 hours as needed for Pain. 9 allopurinol (ZYLOPRIM) 100 mg tablet Take 100 mg by mouth daily. 9 aspirin chewable 81 mg tablet Take 81 mg by mouth daily. 0 ibuprofen (MOTRIN) 600 mg tablet Take 1 Tab by mouth every 6 hours as needed for Pain. 12/03/2017 9 LATANOPROST (XALATAN OPHTHALMIC) Apply to eye. 9 lisinopril (ZESTRIL) 40 mg tablet Take 40 mg by mouth daily. 9 metoprolol (LOPRESSOR) 25 mg tablet Take 25 mg by mouth 2 times daily. 0 ondansetron (ZOFRAN-ODT) 4 mg disintegrating tablet Take 1 Tab by mouth every 8 hours as needed for Nausea. 12 Tab 5 12/03/2017 9 oxyCODONE (ROXICODONE) 5 mg/5 mL solution Take 5 mL by mouth every 4 hours as needed for Pain. Daily Max: 30 mg 100 mL 12/03/2017 9 rosuvastatin (CRESTOR) 10 mg tablet Take 10 mg by mouth at bedtime. 9 spironolactone (ALDACTONE) 25 mg tablet Take 12.5 mg by mouth daily. 9 timolol (TIMOPTIC) 0.25 % ophthalmic solution Place 1 Drop into both eyes 2 times daily. 0 torsemide (DEMADEX) 20 mg tablet Take 20 mg by mouth daily. 9 traZODone (DESYREL) 150 mg tablet Take 100 mg by mouth at bedtime. 9 documented as of this encounter Discharge Disposition Disposition Code Departure Means Destination Home or Self Jail documented in this encounter Plan of Treatment Not on file documented as of this encounter Visit Diagnoses Not on filedocumented in this encounter Care Teams Hide Buyer Relationship Specialty Start Date End Date Jannette Perales NP [address] [place] [phone] PCP - General 11/13/17 documented as of this encounter
--- OUTSIDE RECORDS SUMMARY | 2024-07-09 00:17 | XMS_ITS | Encounter Summary ---
Author Organization [facility] Address [address] [place] [address] Care Team Providers Care Compensation Administrator Name Role Phone Jannette Perales ERRAND RUNNER Primary Care Provider [phone] Reason for Visit * Reason Comments Follow-up Essential hypertensi on Encounter Details Date Type Department Care Team ([facility] st Contact Info) Description 03/07/2020 8:[address] [facility] [place] [address] [place] [address] Jannette Perales NP [address] [place] [address] Primary insomnia (Primary Dx); Essential (primary) hypertension; Mixed hyperlipidemia; Gastroesophageal reflux disease without esophagitis; CKD (chronic kidney disease) stage 3, GFR 30-59 ml/min ([facility]) Social History Tobacco Use Types Packs/Day Years [...] Sign Reading Time Taken Comments Blood Pressure 124/64 03/07/2020 0801 EDT Pulse 54 03/07/2020 0801 EDT Temperature 36.4 ??C (97.5 ??F) 03/07/2020 0801 EDT Respiratory Rate 16 03/07/2020800 EDT Oxygen Saturation 97% 03/07/2020800 EDT Inhaled Oxygen Concentration - - Weight 74.8 kg (165 lb) 03/07/2020800 EDT Height 152.4 cm (5') 03/07/2020800 EDT Body Mass Index 32.22 03/07/2020800 EDT documented in this encounter Ordered Prescriptions Prescription Sig Dispense Quantity Refills Last Filled Start Date End Date CRESTOR 20 mg tabletIndications:Mi xed hyperlipidemia Take 1 Tab by mouth daily. *BRAND NAME ONLY* 90 Tab 3 03/07/2020 0 ZESTRIL 20 mg tabletIndications:Es sential (primary) hypertension Take 0.5 Tabs by mouth daily. *BRAND NAME ONLY* 90 Tab 3 03/07/2020 1 metoprolol (LOPRESSOR) 25 mg tabletIndications:Es sential (primary) hypertension Take 0.5 Tabs by mouth 2 times daily. 90 Tab 3 03/07/2020 1 documented in this encounter Progress Notes * Angélica Wong - 03/07/2020799 EDT Fever: no Chills: no New or Unusual Cough: no SOB: no Body Aches: no Loss of smell/taste: no Sore Throat: no Temp-97.5 * Jannette Devi APRN - 03/07/2020799 EDT Progress Note Patient ID: Sona Rodrigez is a 74 y.o. female Date of Service: 03/07/2020 Reason for Visit: Follow-up (Essential hypertension) Assessment/Plan: Insomnia continues, she did not tolerate the mirtazapine, and trazodone did not work for her. I would be hesitant about a TCA, considering her age with risk for falls. Also, it may worsen her CKD. Wediscussed a month of ambien to help reset her sleep cycle, though I would not want this to become along term medication for her. She is hesitant to try this, knowing the risks. Discussed increasing h er exercise, as she is fairly sedentary right now outside of gardening. Advised to start a daily walk. There is also good evidence behind counseling, especially CBT, for insomnia. She would like to try this. Referral placed. Blood pressure stable, cholesterol well managed with crestor. Her BUN is climbing up, though eGFR stable. Advised to increase her water intake, and decrease her alcohol. She does not have a smart device for video visits. Diagnoses and all orders for this visit: Primary insomnia - AMB CONS/FOLLOW UP [facility]; Future Essential (primary) hypertension - metoprolol tartrate; Take 0.5 Tabs by mouth 2 times daily. - ZestriL; Take 0.5 Tabs by mouth daily. *BRAND NAME ONLY* Mixed hyperlipidemia - Crestor; Take 1 Tab by mouth daily. *BRAND NAME ONLY* Gastroesophageal reflux disease without esophagitis CKD (chronic kidney disease) stage 3, GFR 30-59 ml/min ([facility]) - Basic Metabolic Panel (BMP); Future Subjective: HPI: INSOMNIA: Ongoing insomnia. She finds it hard to fall asleep, and sometimes wakes and night and it can be hard to fall asleep again. Can be up for 3 hrs. She does not exercise. She goes to bed around 8pm, eats dinner at 4pm, sometimes has a snack around 5- 6pm. She has a little water to take pills with at night. She drinks alcohol occasionally (once a week). No herbal medicines. Room is very dark (has room darkening curtains. No noise in the room. Watches TV up until bedtime, though lately has been giving her self an hour or so without TV before bed. She tried mirtazapine, which didn't work well for sleep. The next day it seemed to bother her stomach. She had previously used trazodone. She is using melatonin at bedtime, not sure of the dose. HTN: Managed on metoprolol and zestril (name brand). Her BUN has climbed up to 39 recently. eGFR stable at 42. She drinks 2-3 pints of water a day, has a couple cups of tea in the mornings. She is having beer more often, though not every night. Half a beer when she does drink. ROS: Review of Systems Constitutional: Negative for chills, fever, malaise/fatigue and weight loss. Respiratory: Negative for cough, shortness of breath and wheezing. Cardiovascular: Negative for chest pain, palpitations and leg swelling. Gastrointestinal: Negative for abdominal pain and nausea. Neurological: Negative for dizziness, weakness and headaches. Psychiatric/Behavioral: Negative for depression and substance abuse. The patient has insomnia. The patient is not nervous/anxious. Current Outpatient Medications: ??? allopurinol (ZYLOPRIM) 100 mg tablet, Take 1 Tab by mouth daily., Disp: 90 Tab, Rfl: 3 ??? aspirin (ASPIRIN LOW DOSE) 81 mg EC tablet, Take 81 mg by mouth daily., Disp: , Rfl: ??? brinzolamide (AZOPT) 1 % ophthalmic suspension, Place 1 Drop into both eyes 2 times daily. , Disp: , Rfl: ??? cholecalciferol, Vitamin D3, 1,000 unit tablet, Take 1,000 Units by mouth daily., Disp: , Rfl: ??? CRESTOR 20 mg tablet, Take 1 Tab by mouth daily. *BRAND NAME ONLY*, Disp: 90 Tab, Rfl: 3 ??? latanoprost (XALATAN) 0.005 % ophthalmic solution, PLACE ONE DROP INTO BOTH EYES NIGHTLY, Disp:, Rfl: 11 ??? medical supply, miscellaneous (MISCELLANEOUS MEDICAL SUPPLY [facility]), CPAP facemask Dx: obstructive sleep apnea -, Sig: pt is having difficulty with mask and needs new option Inhaled at bedtime, Disp: , Rfl: ??? metoprolol (LOPRESSOR) 25 mg tablet, Take 0.5 Tabs by mouth 2 times daily., Disp: 90 Tab, Rfl: 3 ??? spironolactone (ALDACTONE) 25 mg tablet, TAKE 1/2 TABLET BY MOUTH DAILY, Disp: 45 Tab, Rfl: 3 ??? timolol (TIMOPTIC-XE) 0.5 % ophthalmic gel-forming, 1 Drop daily. in each affected eye, Disp: ,Rfl: ??? torsemide (DEMADEX) 20 mg tablet, Take 1 Tab by mouth daily., Disp: 90 Tab, Rfl: 3 ??? ZESTRIL 20 mg tablet, Take 0.5 Tabs by mouth daily. *BRAND NAME ONLY*, Disp: 90 Tab, Rfl: 3 Past Medical History: Diagnosis Date ??? Arthritis Advanced OA bilat knees ??? Cancer ([facility]) ??? Cerebral aneurysm ??? 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 Condition not found Question of gout,05/2014 ??? Heartburn ??? History of left breast cancer s/p left modified mastectomy (saline implant) ??? Hypertension ??? IGT (impaired glucose tolerance) ??? NAFLD (nonalcoholic fatty liver disease) 2004 ??? Right rotator cuff tear 10/2005 s/p repair ??? SAH (subarachnoid hemorrhage) (HCC-CMS) s/p clipping LMCA/ACOM anuerysm ??? Scoliosis s/p Diallo Rods ??? Sleep apnea Past Surgical History: Procedure Laterality Date ??? APPENDECTOMY ??? BRAIN SURGERY cerebral aneurysm repair ([facility]) ??? BREAST SURGERY Left mastectomy ??? CORONARY [...] file Gets together: Not on file Attends mandaen service: Not on file Active member of [...] Social History Narrative ??? Not on file Allergies Allergen Reactions ??? Dilaudid [Hydromorphone] Itching ??? Hydrocodone Itching ??? Oxycodone Itching Other reaction(s): urticaria, pt reports ok if take 1 at HS ??? Propine [Dipivefrin] Rash Eye drops Objective: VS: BP 124/64 (BP Cuff Location: Right arm, BP Patient Position: Sitting, BP Cuff Sizes: Adult, large) Pulse 54 Temp 36.4 ??C (97.5 ??F) Resp 16 Ht 152.4 cm (60) Wt 74.8 kg (165 lb) HxV583% BMI 32.22 kg/m?? Physical Exam: Gen: no acute distress, pleasant, cooperative HEENT: Head normocephalic, sclera non-icteric, features and expressions symmetrical Lungs: Unlabored breathing, no retractions. LCTAB Heart: RRR, no murmur or rub. Vascular: Pedal pulses +2 bilaterally, trace non-pitting edema to ankles. Skin: no lesions Neuro: alert & oriented, gait normal Speech recognition software was used to complete this progress note. Typographical errors may be present. Jannette Devi NP documented in this encounter Plan of Treatment Not on file documented as of this encounter Visit Diagnoses Diagnosis Primary insomnia- Primary Persistent disorder of initiating or maintaining sleep Essential (primary) hypertension Unspecified essential hypertension Mixed hyperlipidemia Gastroesophageal reflux disease without esophagitis Esophageal reflux CKD (chronic kidney disease) stage 3, GFR 30-59 ml/min ([facility]) Chronic kidney disease, Stage III (moderate) documented in this encounter Discontinued Medications Medication Sig Discontinue Reason Start Date End Da te CRESTOR 20 mg tablet Take 20 mg by mouth daily. Reorder 04/21/2019 03/07/2020 ZESTRIL 20 mg tablet Take by mouth daily. Reorder 06/04/2019 03/07/2020 metoprolol (LOPRESSOR) 25 mg tablet Take 12.5 mg by mouth 2 times daily. Reorder 03/07/2020 documented as of this encounter Care Teams Compensation Administrator Relationship Specialty Start Date End Date Jannette Perales NP [address] [place] [phone] PCP - General 11/13/17 documented as of this encounter
--- OUTSIDE RECORDS SUMMARY | 2024-07-09 00:17 | XMS_ITS | Encounter Summary ---
Author Organization [facility] Address [address] [place] [address] Care Team Providers Care Chain Pegger Name Role Phone Jannette Perales NP Primary Care Provider [phone] Reason for Visit * Reason Comments Other Encounter Details Date Type Department Care Team ([facility] st Contact Info) Description 12/12/2019 Refill [facility] [place] [address] [place] [address] Jannette Perales NP [address] [place] [phone] Other Social History Tobacco Use [...] Refills Last Filled Start Date End Date mirtazapine (REMERON) 15 mg tabletIndications: Dysthymia,Primary insomnia TAKE ONE TABLET BY MOUTH AT BEDTIME 30 Tab 2 12/14/2019 0 documented in this encounter Miscellaneous Notes * Telephone Encounter - Lora Núñez RN - 12/14/2019 1646 EDT Script escribed documented in this encounter Plan of Treatment Not on file documented as of this encounter Visit Diagnoses Diagnosis Dysthymia Dysthymic disorder Primary insomnia Persistent disorder of initiating or maintaining sleep documented in this encounter Discontinued Medications Medication Sig Discontinue Reason Start Date End Da te mirtazapine (REMERON) 15 mg tabletIndications:Dysthym ia,Primary insomnia Take 1 Tab by mouth at bedtime. 09/14/2019 12/14/2019 documented as of this encounter Care Teams Chain Pegger Relationship Specialty Start Date End Date Jannette Perales NP [address] [place] [phone] PCP - General 11/13/17 documented as of this encounter
--- OUTSIDE RECORDS SUMMARY | 2024-07-09 00:17 | XMS_ITS | Encounter Summary ---
Author Organization [facility] Address [address] [place] [address] Care Team Providers Care Binder Cutter Name Role Phone Jannette Perales NP Primary Care Provider [phone] Encounter Details Date Type Department Care Team (Late st Contact Info) Description 03/01/2019 Historical Results Only [facility] Radiology Results [address] [place], [place] [address] Jannette Perales NP [address] [place] [phone] Social History Tobacco Use Types [...] Procedure Name Priority Date/Time Associated Diagnosis Comments MA BREAST SCREENING MICHAEL RIGHT 03/01/2019 10:34 EDT documented in this encounter Results * MA BREAST SCREENING MICHAEL RIGHT (03/01/2019 10:34 EDT) Anatomical Region Laterality Modality Breast Right Other 03/01/2019 10:3 4 EDT Narrative 03/01/2019 10:34 EDT ? EXAM: MAMMOGRAM/MAMMO RIGHT SCREEN W MICHAEL EX. D/ (1254) ? CLINICAL INFORMATION: ? Z12.31 RIGHT SCREENING; LEFT MASTECTOMY ? INDICATION: ??Z12.31 RIGHT SCREENING; LEFT MASTECTOMY SCREENING, (R) ? BREAST 2017, (L) MASTECTOMY ? COMPARISON: Comparison has been made to previous images. ? TECHNIQUE: ??Full field digital whole breast 2D (C-view) and 3D CC and ? MLO views of the right breast were obtained. CAD technology was ? utilized. ? FINDINGS: ??The fibroglandular pattern of the breast is normal. There ? has been no change when compared to previous mammograms and there is ? no mammographic evidence of cancer. There are scattered areas of ? fibroglandular density. ? FINAL ASSESSMENT: ?? RIGHT BREAST - BI-RADS Category 1 - Negative. ? Routine mammographic follow-up is recommended. ? These results will be communicated to your patient via a lay letter ? from Radiology. ??If any additional imaging is needed we will contact ? your patient directly. ? REPORT SIGNED IN OTHER VENDOR SYSTEM 03/07/2019 ?Reported By: Edgar Ambrocio MD ? CC: ? Transcribed Date/Time: 03/01/2019 (1034) ? It Instructor: ? Printed Date/Time: 04/15/2019 (0340) ? PAGE 1 ? Signed Report ? Procedure Note Edgar Ambrocio MD - 06/01/2019 EXAM: MAMMOGRAM/MAMMO RIGHT SCREEN W MICHAEL EX. D/ (1254) CLINICAL INFORMATION: Z12.31 RIGHT SCREENING; LEFT MASTECTOMY INDICATION: Z12.31 RIGHT SCREENING; LEFT MASTECTOMY SCREENING, (R) BREAST 2017, (L) MASTECTOMY COMPARISON: Comparison has been made to previous images. TECHNIQUE: Full field digital whole breast 2D (C-view) and 3D CCand MLO views of the right breast were obtained. CAD technology was utilized. FINDINGS: The fibroglandular pattern of the breast is normal.There has been no change when compared to previous mammograms and thereis no mammographic evidence of cancer. There are scattered areas of fibroglandular density. FINAL ASSESSMENT: RIGHT BREAST - BI-RADS Category 1 - Negative. Routine mammographic follow-up is recommended. These results will be communicated to your patient via a lay letter from Radiology. If any additional imaging is needed we willcontact your patient directly. REPORT SIGNED IN OTHER VENDOR SYSTEM 03/07/2019 Reported By: Edgar Ambrocio MD CC: Transcribed Date/Time: 03/01/2019 (1034) It Instructor: Printed Date/Time: 04/15/2019 (8050) PAGE 1 Signed Report Jannette Perales NP IMG MAMMOGRAPHY ORDERABLES Final Result documented in this encounter Visit Diagnoses Not on filedocumented in this encounter Care Teams Binder Cutter Relationship Specialty Start Date End Date Jannette Perales NP [address] [place] [phone] PCP - General 11/13/17 documented as of this encounter
--- OUTSIDE RECORDS SUMMARY | 2024-07-09 00:17 | XMS_ITS | Encounter Summary ---
Author Organization [facility] Address [address] [place] [address] Care Team Providers Care Clerical Office Worker Name Role Phone Jannette Perales NP Primary Care Provider [phone] Encounter Details Date Type Department Care Team (Latest Contact Info) Description 09/14/2019 Travel Social History Tobacco Use Types Packs/Day Years [...] on filedocumented in this encounter Care Teams Clerical Office Worker Relationship Specialty Start Date End Date Jannette Perales NP [address] [place] [phone] PCP - General 11/13/17 documented as of this encounter
--- OUTSIDE RECORDS SUMMARY | 2024-07-09 00:17 | XMS_ITS | Encounter Summary ---
Author Organization [facility] Address [address] [place] [address] Care Team Providers Care Barrel Drum Cutter Name Role Phone Jannette Perales FLORENCIO Primary Care Provider [phone] Reason for Visit * Reason Onset Date Comments Medications Refill 07/05/2019 Encounter Details Date Type Department Care Team (Late st Contact Info) Description 07/05/[address] [facility] [address] [place] [address] Keon Delgado MD [address] [place] [address] [place] [phone] Medications Refill Social History Tobacco Use [...] End Date spironolactone (ALDACTONE) 25 mg tablet Take 0.5 Tabs by mouth daily for 90 days. 45 Tab 1 07/05/2019 12/31/2019 documented in this encounter Miscellaneous Notes * Telephone Encounter - Alisson Solano RN - 07/05/2019 0467 EST Patient up to date on F/U, patient was seen by . Med ordered today under organization development consultant . Patient scheduled for F/U in January. * Telephone Encounter - Yandy Méndez - 07/05/2019 0959 EST Sona needs a refill of Sprironlactone 25 mg called in, she has enough for 4 days documented in this encounter Plan of Treatment Not on file documented as of this encounter Visit Diagnoses Not on filedocumented in this encounter Discontinued Medications Medication Sig Discontinue Reason Start Date End Da te spironolactone (ALDACTONE) 25 mg tablet Take 12.5 mg by mouth daily. Reorder 07/05/2019 documented as of this encounter Care Teams Barrel Drum Cutter Relationship Specialty Start Date End Date Jannette Perales NP [address] [place] [phone] PCP - General 11/13/17 documented as of this encounter
--- OUTSIDE RECORDS SUMMARY | 2024-07-09 00:17 | XMS_ITS | Encounter Summary ---
Author Organization [facility] Address [address] [place] [address] Care Team Providers Care Deaf/Hard Of Hearing Specialist Name Role Phone Jannette Perales PLASTIC JOINT MAKER Primary Care Provider [phone] Reason for Visit * Reason Comments Follow-up Pain Encounter Details Date Type Department Care Team (Late st Contact Info) Description 06/15/2019 9:00 EST Office Visit [facility] [address] [place] [address] Luigi Bravo MD [address] [facility] [address] [place] [address] Tear of right supraspinatus tendon (Primary Dx) Social History Tobacco Use Types [...] as of this encounter Progress Notes * Luigi Bravo MD - 06/15/2019 0900 EST Patient returns today as follow up on her right shoulder pain which started about 5 months ago withmisstep on some stairs/stepladder. At last visit on 04/13/19 CT scan was reviewed which showed fatty infiltration and retraction of the supra and infraspinatus and a non-unreconstructable fashion with proximal migration of the humeral head. She was advised a RTC repair would be unsuccessful and that reverse total shoulder would be indicated. She was referred to PT to maintain function and if no progress she could discuss reverse total shoulder. Orthopaedic Surgery Office Note Sona Rodrigez 1945 [id number] Subjective. Patient returns noting that physical therapy and the exercises she has been doing for her right shoulder have been exceedingly helpful. Although she has had remote bilateral rotator cuff repairs the recent CT shoulder shows fatty atrophy and retraction to the glenoid of the supra and infraspinatus. She has significant proximal humeral migration on x-ray mild diffuse arthritis along with that but now notes the exercises of allowed her to be comfortable both at sleep and when using the shoulder. She is about to finish up with therapy heels that she certainly is not having enough symptoms that would warrant going ahead with surgery at this time. Patient Active Problem List Diagnosis ??? Functional dyspepsia ??? Gastroesophageal reflux disease without esophagitis ??? Chronic renal insufficiency, stage III (moderate) (HCC-CMS) ??? Depression ??? Diastolic dysfunction ??? Essential (primary) hypertension ??? Exertional dyspnea ??? Glaucoma ??? Hyperlipidemia ??? Hyperuricemia ??? Impaired glucose tolerance ??? Insomnia ??? Knee pain ??? Malignant neoplasm of female breast (HCC-CMS) ??? Obstructive sleep apnea ??? Arteriosclerotic cardiovascular disease ??? Osteopenia ??? Other fatigue ??? Tear of right supraspinatus tendon ??? Unspecified osteoarthritis, unspecified site ??? Status post hip replacement ??? S/P rotator cuff surgery ??? S/P tonsillectomy ??? S/P hysterectomy ??? S/P left mastectomy ??? S/P coronary artery stent placement ??? S/P cerebral aneurysm repair ??? Pseudophakia of both eyes ??? Pigmentary glaucoma of both eyes ??? Acute spont subarachnoid intracranial hemorrhage d/t cerebral aneurysm ([facility]-CMS) Current Outpatient Medications: allopurinol (ZYLOPRIM) 100 mg tablet aspirin chewable 81 mg tablet brinzolamide (AZOPT) 1 % ophthalmic suspension cholecalciferol, Vitamin D3, 1,000 unit tablet CRESTOR 20 mg tablet latanoprost (XALATAN) 0.005 % ophthalmic solution metoprolol (LOPRESSOR) 25 mg tablet spironolactone (ALDACTONE) 25 mg tablet timolol (TIMOPTIC) 0.25 % ophthalmic solution torsemide (DEMADEX) 20 mg tablet traZODone (DESYREL) 150 mg tablet ZESTRIL 20 mg tablet No current facility-administered medications for this visit. Allergies Allergen Reactions ??? Dilaudid [Hydromorphone] Itching ??? Hydrocodone Itching ??? Oxycodone Itching Other reaction(s): urticaria, pt reports ok if take 1 at HS ??? Propine [Dipivefrin] Rash Eye drops A 10 point ROS was completed. All are negative except noted in HPI. Objective: No data found. On physical exam, the patient is found to be a pleasant and cooperative female who appears to be alert and oriented x 3. She is well-developed, well-nourished and in no significant distress. Breathing is unlabored. Skin is warm, pink and dry to inspection and palpation. Neurovascularly intact with good capillary refill. Today's examination shows full forward flexion and abduction bilaterally she has a slight limitation and weakness with external rotation on the right she is able however to reach the T10 level on internal rotation bilaterally there is great subscap strength on the right weak strength with testing the external rotators and supraspinatus as expected based on her studies. The left is doing quite well as well. She was able to review her Thera-Band exercise program quite quickly clearly having learned the exercises well. Assessment/Plan: Rotator cuff arthropathy right shoulder well compensated with exercise and deltoidfunction at this time recommend she continue doing the exercises as she is doing now through the winter in the spring if she wishes to decrease it to 2 or 3 times a week that will probably be adequate to keep her out of trouble for the near-term of course of symptoms significantly worsen at any point she is encouraged to return and we would offer a reversed total shoulder arthroplasty after getting a marker film for templating. Luigi Bravo MD 06/15/19 9:10 documented in this encounter Plan of Treatment Not on file documented as of this encounter Visit Diagnoses Diagnosis Tear of right supraspinatus tendon- Primary documented in this encounter Care Teams Deaf/Hard Of Hearing Specialist Relationship Specialty Start Date End Date Jannette Perales NP [address] [place] [address] PCP - General 11/13/17 documented as of this encounter
--- OUTSIDE RECORDS SUMMARY | 2024-07-09 00:17 | XMS_ITS | Encounter Summary ---
Author Organization [facility] Address [address] [place] [address] Care Team Providers Care Donor Services Specialist Name Role Phone Jannette Perales NP Primary Care Provider [phone] Encounter Details Date Type Department Care Team (Late st Contact Info) Description 08/06/2018 Historical Results Only [facility] - Main [place] [address] [place], [place] [id number] Jannette Perales NP [address] [place] [address] Social History Tobacco Use Types [...] Diagnosis Comments BASIC METABOLIC PANEL (BMP) Routine 08/06/2018 9:13 EST documented in this encounter Results * (ABNORMAL) BASIC METABOLIC PANEL (BMP) (08/06/2018 9:13 EST) [facility] 29(H) 10 - 26 mg/dL 08/06/2018 10:53 EST [facility] CALCIUM - [facility] 9.3 8.5 - 10.5 mg/dL 08/06/2018 10:53 [facility] Chloride 106 96 - 110 mmol/L 08/06/2018 10:53 [facility] CO2 Total 23 22 - 32 mEq/L 08/06/2018 10:53 [facility] CREATININE 1.29(H) 0.52 - 1.04 mg/dL 08/06/2018 10:53 [facility] eGFR 41 08/06/2018 10:53 [facility] Comment: Stage 3: Moderate renal impairment is defined as GFR 30-59 Multiply result by 1.210 for patients. eGFR calculated using the IDMS-traceable MDRD Study Equation. ??(effective 05/30/2014) Anion Gap 12 0 - 18 08/06/2018 10:53 [facility] GLUCOSE - [facility] 98 70 - 100 mg/dL 08/06/2018 10:53 [facility] Potassium 4.4 3.5 - 5.0 mEq/L 08/06/2018 10:53 [facility] Sodium 141 136 - 145 mEq/L 08/06/2018 10:53 [facility] 08/06/2018 9:13 EST 08/06/2018 9:13 EST Narrative [facility] - 08/06/2018 10:53 EST Does PT Have a Latex Allergy? NO us Jannette Perales CATERING ATTENDANT CHEMISTRY & BLOOD GAS ORDERABLES Final Result [facility] documented in this encounter Visit Diagnoses Not on filedocumented in this encounter Care Teams Donor Services Specialist Relationship Specialty Start Date End Date Jannette Perales NP [address] [place] [phone] PCP - General 11/13/17 documented as of this encounter
--- OUTSIDE RECORDS SUMMARY | 2024-07-09 00:17 | XMS_ITS | Encounter Summary ---
Author Organization [facility] Address [address] [place] [address] Care Team Providers Care Restoration Technician Name Role Phone Jannette Perales NP Primary Care Provider [phone] Luis Elaine MD Unavailable [phone] Encounter Details Date Type Department Care Team (Late st Contact Info) Description 10/18/2020 Results Only Imaging [facility] [place] Results [address] [place] [address] Jannette Perales NP [address] [place] [address] Social History Tobacco Use Types [...] Procedure Name Priority Date/Time Associated Diagnosis Comments DXA BONE DENSITY 10/19/2020 14:2 1 EDT MA BREAST SCREENING MICHAEL RIGHT 10/18/2020 12:36 EDT documented in this encounter Results * XR DEXA BONE DENSITY (10/19/2020 14:21 EDT) Anatomical Region Laterality Modality Other 10/18/2020 10:2 8 EDT Narrative 10/19/2020 14:21 EDT ? EXAM: RADIOLOGY/DEXA/BONE DENSITY-AXIAL ?? EX. D/ (1028) ? CLINICAL INFORMATION: ? Z78.0 POST MENOPAUSAL ? See attached report. ??Report also available in PACS and [employer]plore Mobility for ? ordering [facility] Providers. ? CHROME WORKER:anjana ?Reported By: Chuy Mantilla MD ? CC: ? Transcribed Date/Time: 10/19/2020 (1421) ? Optician Manager: DARCI ? Printed Date/Time: 10/19/2020 (142) ? PAGE 1 ? Signed Report ? Procedure Note Chuy Mantilla MD - 10/19/2020 EXAM: RADIOLOGY/DEXA/BONE DENSITY-AXIAL EX. D/ (1028) CLINICAL INFORMATION: Z78.0 POST MENOPAUSAL See attached report. Report also available in PACS and [employer] for ordering [facility] Providers. CHROME WORKER:anjana Reported By: Chuy Mantilla MD CC: Transcribed Date/Time: 10/19/2020 (1421) Optician Manager: DARCI Printed Date/Time: 10/19/2020 (4319) PAGE 1 Signed Report us Jannette Diaz COMPUTER HELP DESK REPRESENTATIVE IMG DEXA ORDERABLES Final Result * MA BREAST SCREENING MICHAEL RIGHT (10/18/2020 12:36 EDT) Anatomical Region Laterality Modality Breast Right Mammography 10/18/2020 12:3 6 EDT Narrative 10/18/2020 12:36 EDT ? EXAM: MAMMOGRAM/MAMMO RIGHT SCREEN W MICHAEL EX. D/ (0919) ? CLINICAL INFORMATION: ? Z12.31 SCREENING RIGHT ? LEFT MASTECTOMY ? INDICATION: Z12.31 SCREENING RIGHT, LEFT MASTECTOMY SCREENING, 2019, ? POST MENOPAUSAL ? COMPARISON: ??Comparison has been made to previous images. ? TECHNIQUE: ??Full field digital whole breast 2D (C-view) and 3D CC and ? MLO views of both breasts were obtained. CAD technology was utilized. ? FINDINGS: ??The fibroglandular patterns of the breasts are normal. ? There has been no change when compared to previous mammograms and ? there is no mammographic evidence of cancer. ??There are ? post-therapeutic changes in the right breast. There are scattered ? areas of fibroglandular density. ? FINAL ASSESSMENT: ??BILATERAL BREAST - Category 1 - Negative. Routine ? mammographic follow-up is recommended. ? These results will be communicated to your patient via a lay letter ? from Radiology. ??If any additional imaging is needed we will contact ? your patient directly. ? REPORT SIGNED IN OTHER VENDOR SYSTEM 10/18/2020 ?Reported By: Edgar Ambrocio MD ? CC: ? Transcribed Date/Time: 10/18/2020 (1236) ? Optician Manager: ? Printed Date/Time: 10/18/2020 (1482) ? PAGE 1 ? Signed Report ? Procedure Note Edgar Ambrocio MD - 10/18/2020 EXAM: MAMMOGRAM/MAMMO RIGHT SCREEN W MICHAEL EX. D/ (0919) CLINICAL INFORMATION: Z12.31 SCREENING RIGHT LEFT MASTECTOMY INDICATION: Z12.31 SCREENING RIGHT, LEFT MASTECTOMY SCREENING,2019, POST MENOPAUSAL COMPARISON: Comparison has been made to previous images. TECHNIQUE: Full field digital whole breast 2D (C-view) and 3D CCand MLO views of both breasts were obtained. CAD technology wasutilized. FINDINGS: The fibroglandular patterns of the breasts are normal. There has been no change when compared to previous mammograms and there is no mammographic evidence of cancer. There are post-therapeutic changes in the right breast. There are scattered areas of fibroglandular density. FINAL ASSESSMENT: BILATERAL BREAST - Category 1 - Negative.Routine mammographic follow-up is recommended. These results will be communicated to your patient via a lay letter from Radiology. If any additional imaging is needed we willcontact your patient directly. REPORT SIGNED IN OTHER VENDOR SYSTEM 10/18/2020 Reported By: Edgar Ambrocio MD CC: Transcribed Date/Time: 10/18/2020 (1236) Optician Manager: Printed Date/Time: 10/18/2020 (4972) PAGE 1 Signed Report Jannette Perales NP IMG MAMMOGRAPHY ORDERABLES Final Result documented in this encounter Visit Diagnoses Not on filedocumented in this encounter Care Teams Restoration Technician Relationship Specialty Start Date End Date Jannette Perales NP [address] [place] [phone] PCP - General 11/13/17 Luis Elaine MD [address] [place] [address] [phone] Cardiovascular Disease 03/05/22 documented as of this encounter
--- OUTSIDE RECORDS SUMMARY | 2024-07-09 00:17 | XMS_ITS | Encounter Summary ---
Author Organization [facility] Address [address] [place] [address] Care Team Providers Care Manufactured Buildings Supervisor Name Role Phone Jannette Perales NP Primary Care Provider [phone] Encounter Details Date Type Department Care Team (Late st Contact Info) Description 06/09/2018 Historical Results Only [facility] - Main [place] [address] [place], [place] [address] Jannette Perales NP [address] [place] [address] Social History Tobacco Use Types [...] Diagnosis Comments BASIC METABOLIC PANEL (BMP) Routine 06/09/2018 9:13 EST documented in this encounter Results * (ABNORMAL) BASIC METABOLIC PANEL (BMP) (06/09/2018 9:13 EST) [facility] 34(H) 10 - 26 mg/dL 06/09/2018 10:06 [facility] CALCIUM - [facility] 9.2 8.5 - 10.5 mg/dL 06/09/2018 10:06 [facility] Chloride 104 96 - 110 mmol/L 06/09/2018 10:06 [facility] CO2 Total 25 22 - 32 mEq/L 06/09/2018 10:06 [facility] CREATININE 1.30(H) 0.52 - 1.04 mg/dL 06/09/2018 10:06 [facility] eGFR 40 06/09/2018 10:06 [facility] Comment: Stage 3: Moderate renal impairment is defined as GFR 30-59 Multiply result by 1.210 for patients. eGFR calculated using the IDMS-traceable MDRD Study Equation. ??(effective 05/30/2014) Anion Gap 8 0 - 18 06/09/2018 10:06 [facility] GLUCOSE - [facility] 102(H) 70 - 100 mg/dL 06/09/2018 10:06 [facility] Potassium 4.4 3.5 - 5.0 mEq/L 06/09/2018 10:06 [facility] Sodium 137 136 - 145 mEq/L 06/09/2018 10:06 [facility] 06/09/2018 9:13 EST 06/09/2018 9:13 EST [facility] - 06/09/2018 10:06 EST Does PT Have a Latex Allergy? NO us Jannette Perales RN RECOVERY CHEMISTRY & BLOOD GAS ORDERABLES Final Result [facility] documented in this encounter Visit Diagnoses Not on filedocumented in this encounter Care Teams Manufactured Buildings Supervisor Relationship Specialty Start Date End Date Jannette Perales NP [address] [place] [phone] PCP - General 11/13/17 documented as of this encounter
--- OUTSIDE RECORDS SUMMARY | 2024-07-09 00:17 | XMS_ITS | Encounter Summary ---
Author Organization [facility] Address [address] [place] [address] Care Team Providers Care Verification Lead Name Role Phone Jannette Perales ART THERAPY SPECIALIST Primary Care Provider [phone] Reason for Visit * Reason Onset Date Comments Prior Auth, Medication 03/08/2020 Crestor Encounter Details Date Type Department Care Team ([facility] st Contact Info) Description 03/08/2020 Telephone [facility] Adult Primary Care - [address] [address] Lora Núñez RN Prior Auth, Medication (Crestor) Social History Tobacco Use Types Packs/Day Years [...] Miscellaneous Notes * Telephone Encounter - Lora Núñez, RN - 03/09/2020 1156 EDT Has taken generic in the past and had a bad reaction to it. Refer to other TE. * Telephone Encounter - Lora Núñez RN - 03/08/2020 1112 EDT Insurance requests pt to take formulary Atorvastatin, 40mg? Called pt to ask if she has ever taken this? If so, why not taking it? documented in this encounter Plan of Treatment Not on file documented as of this encounter Visit Diagnoses Not on filedocumented in this encounter Care Teams Verification Lead Relationship Specialty Start Date End Date Jannette Perales NP [address] [place] [phone] PCP - General 11/13/17 documented as of this encounter
--- OUTSIDE RECORDS SUMMARY | 2024-07-09 00:17 | XMS_ITS | Encounter Summary ---
Author Organization [facility] Address [address] [place] [address] Care Team Providers Care Windows Application Administrator Name Role Phone Jannette Perales NP Primary Care Provider [phone] Reason for Visit * Reason Comments Follow-up bloodwork Encounter Details Date Type Department Care Team ([facility] st Contact Info) Description 09/14/2019 10:00 EST Office Visit [facility] Adult Primary Care - [place] [address] [place] [address] Jannette Perales NP [address] [place] [phone] Essential (primary) hypertension (Primary Dx); Dysthymia; Primary insomnia; CKD (chronic kidney disease) stage 3, GFR 30-59 ml/min ([facility]); General medical exam; Mixed hyperlipidemia; Vitamin D deficiency Social History Tobacco Use Types Packs/Day Years [...] Sign Reading Time Taken Comments Blood Pressure 128/70 09/14/2019 0951 EST Pulse 51 09/14/2019 0951 EST Temperature 36.4 ??C (97.6 ??F) 09/14/2019 0951 EST Respiratory Rate 16 09/14/2019 0951 EST Oxygen Saturation 98% 09/14/2019 0951 EST Inhaled Oxygen Concentration - - Weight 74.8 kg (165 lb) 09/14/2019 0951 EST Height 152.4 cm (5') 09/14/2019 0951 EST Body Mass Index 32.22 09/14/2019 0951 EST documented in this encounter Patient Instructions * Patient Instructions* Jannette Devi APRN - 09/14/2019 10:00 EST Look for a white noise machine for bedtime, or a fan to run. Avoid TV or other screens the hour before bedtime. documented in this encounter Ordered Prescriptions Prescription Sig Dispense Quantity Refills Last Filled Start Date End Date mirtazapine (REMERON) 15 mg tabletIndications:D ysthymia,Primary insomnia Take 1 Tab by mouth at bedtime. 30 Tab 2 09/14/2019 12/14/2019 documented in this encounter Progress Notes * Jannette Devi APRN - 09/14/2019 1000 EST Progress Note Patient ID: Sona Rodrigez is a 74 y.o. female Date of Service: 09/25/2019 Reason for Visit: Follow-up (bloodwork) Assessment/Plan: Discussed insomnia today. Reviewed good sleep hygiene, adding in exercise into the day, avoiding screens right before bed. Will try some mirtazipine in place of trazodone. She does have a hx of YOLANDA which may be contributing, not using a CPAP at this time. Blood pressure in good range w zestril, baseline renal function. Diagnoses and all orders for this visit: Essential (primary) hypertension Dysthymia - mirtazapine; Take 1 Tab by mouth at bedtime. Primary insomnia - mirtazapine; Take 1 Tab by mouth at bedtime. Subjective: HPI: BP in good range with lost dose of zestril. Her renal function is stable, BUN improved since last visit. ?Shoulder has been doing better, continues with home PT. Followed by Dr. Bravo. Trazodone doesn't seem to helping her sleep at night. She takes half a tab (75mg), if she takes a full tab it doesn't seem to help her sleep. She does not exercise. She goes to bed around 8pm, eats dinner at 4pm, sometimes has a snack around 5- 6pm. She has a little water to take pills with at night. She drinks alcohol occasionally (once a week). No herbal medicines. Room is very dark (has room darkening curtains. No noise in the room. Watches TV up until bedtime. Hard to fall asleep, and soemtimes wakes and night and it can be hard to fall asleep again. Can be up for 3 hrs. She will sometimes have restless legs, which occurs once or twice a week. She drinks water every day, 5 glasses a day or so. She sometimes is a little achey at bedtime. ROS: See HPI Current Outpatient Medications: ??? allopurinol (ZYLOPRIM) 100 [...] , Rfl: ??? CRESTOR 20 mg tablet, , Disp: , Rfl: ??? latanoprost (XALATAN) 0.005 % ophthalmic solution, PLACE ONE DROP INTO BOTH EYES NIGHTLY, Disp:, Rfl: 11 ??? medical supply, miscellaneous (MISCELLANEOUS MEDICAL SUPPLY [facility]), CPAP facemask Dx: obstructive sleep apnea -, Sig: pt is having difficulty with mask and needs new option Inhaled at bedtime, Disp: , Rfl: ??? metoprolol (LOPRESSOR) 25 mg tablet, Take 12.5 mg by mouth 2 times daily., Disp: , Rfl: ??? mirtazapine (REMERON) 15 mg tablet, Take 1 Tab by mouth at bedtime., Disp: 30 Tab, Rfl: 2 ??? spironolactone (ALDACTONE) 25 mg tablet, Take 0.5 Tabs by mouth daily for 90 days., Disp: 45 Tab, Rfl: 1 ??? timolol (TIMOPTIC-XE) 0.5 % ophthalmic gel-forming, 1 Drop daily. in each affected eye, Disp: ,Rfl: ??? torsemide (DEMADEX) 20 mg tablet, Take 1 Tab by mouth daily., Disp: 90 Tab, Rfl: 3 ??? ZESTRIL 20 mg tablet, Take by mouth daily. , Disp: , Rfl: Past Medical History: Diagnosis Date ??? Arthritis [...] repair ??? BREAST SURGERY Left mastectomy ??? CARDIAC SURGERY ??? CAROTID ARTERY STENTING ??? HYSTERECTOMY ??? JOINT REPLACEMENT TKR ??? [...] resource strain: Not on file ??? Food insecurity: Worry: Not on file Inability: Not on file ??? Transportation needs: Medical: Not on file Non-medical: Not on file Tobacco Use ??? Smoking status: Never Smoker ??? Smokeless tobacco: Never Used Substance and Sexual Activity ??? Alcohol use: Yes Alcohol/week: 2.0 standard drinks Types: 2 Cans of beer per week ??? Drug use: No ??? Sexual activity: Not on file Lifestyle ??? Physical activity: Days per week: Not on file Minutes per session: Not on file ??? Stress: Not on file Relationships ??? Social connections: Talks on phone: Not on file Gets together: Not on file Attends mormon service: Not on file Active member of club or organization: Not on file Attends meetings of clubs or organizations: Not on file Relationship status: Not on file ??? Intimate partner violence: Fear of current or ex partner: Not [...] [Dipivefrin] Rash Eye drops Objective: VS: BP 128/70 (BP Cuff Location: Right arm, BP Patient Position: Sitting, BP Cuff Sizes: Adult, regular) Pulse 51 Temp 36.4 ??C (97.6 ??F) Resp 16 Ht 152.4 cm (60) Wt 74.8 kg (165 lb) SpO2 98% BMI 32.22 kg/m?? Physical Exam: Gen: no acute distress, pleasant, cooperative HEENT: Head normocephalic, sclera non-icteric, features and expressions symmetrical Lungs: Unlabored breathing, no retractions. LCTAB Heart: RRR, no murmur or rubs. Skin: no lesions Neuro: alert & oriented, gait normal Speech recognition software was used to complete this progress note. Typographical errors may be present. Jannette Devi NP documented in this encounter Plan of Treatment Not on file documented as of this encounter Visit Diagnoses Diagnosis Essential (primary) hypertension- Primary Unspecified essential hypertension Dysthymia Dysthymic disorder Primary insomnia Persistent disorder of initiating or maintaining sleep CKD (chronic kidney disease) stage 3, GFR 30-59 ml/min ([facility]) Chronic kidney disease, Stage III (moderate) General medical exam Unspecified general medical examination Mixed hyperlipidemia Vitamin D deficiency Unspecified vitamin D deficiency documented in this encounter Discontinued Medications Medication Sig Discontinue Reason Start Date End Da te traZODone (DESYREL) 150 mg tablet 1 tab orally at bedtime as needed Alternate therapy 04/07/2019 09/14/2019 documented as of this encounter Care Teams Windows Application Administrator Relationship Specialty Start Date End Date Jannette Perales NP [address] [place] [address] PCP - General 11/13/17 documented as of this encounter
--- OUTSIDE RECORDS SUMMARY | 2024-07-09 00:17 | XMS_ITS | Encounter Summary ---
Author Organization [facility] Address [address] [place] [address] Care Team Providers Care Offset Printing Pressmen Name Role Phone Jannette Perales NP Primary Care Provider [phone] Encounter Details Date Type Department Care Team (Late st Contact Info) Description 06/25/2018 Historical Results Only [facility] - [address] [place], [place] [id number] Jannette Perales NP [address] [place] [address] Social History Tobacco Use Types [...] Diagnosis Comments BASIC METABOLIC PANEL (BMP) Routine 06/25/2018 8:39 EST documented in this encounter Results * (ABNORMAL) BASIC METABOLIC PANEL (BMP) (06/25/2018 8:39 EST) BUN - [facility] 29(H) 10 - 26 mg/dL 06/25/2018 10:01 [facility] CALCIUM - [facility] 9.4 8.5 - 10.5 mg/dL 06/25/2018 10:01 [facility] Chloride 103 96 - 110 mmol/L 06/25/2018 10:01 [facility] CO2 Total 23 22 - 32 mEq/L 06/25/2018 10:01 [facility] CREATININE 1.26(H) 0.52 - 1.04 mg/dL 06/25/2018 10:01 [facility] eGFR 42 06/25/2018 10:01 [facility] Comment: Stage 3: Moderate renal impairment is defined as GFR 30-59 Multiply result by 1.210 for patients. eGFR calculated using the IDMS-traceable MDRD Study Equation. ??(effective 05/30/2014) Anion Gap 14 0 - 18 06/25/2018 10:01 [facility] GLUCOSE - [facility] 105(H) 70 - 100 mg/dL 06/25/2018 10:01 [facility] Potassium 4.4 3.5 - 5.0 mEq/L 06/25/2018 10:01 [facility] Sodium 140 136 - 145 mEq/L 06/25/2018 10:01 [facility] 06/25/2018 8:39 EST 06/25/2018 8:39 EST Narrative [facility] - 06/25/2018 10:01 EST Does PT Have a Latex Allergy? NO us Jannette Perales PARTS COUNTER SALESPERSON CHEMISTRY & BLOOD GAS ORDERABLES Final Result [facility] documented in this encounter Visit Diagnoses Not on filedocumented in this encounter Care Teams Offset Printing Pressmen Relationship Specialty Start Date End Date Jannette Perales NP [address] [place] [phone] PCP - General 11/13/17 documented as of this encounter
--- OUTSIDE RECORDS SUMMARY | 2024-07-09 00:17 | XMS_ITS | Encounter Summary ---
Author Organization [facility] Address [address] [place] [address] Care Team Providers Care Concrete Mixing Truck Driver Name Role Phone Jannette Perales NP Primary Care Provider [phone] Reason for Visit * Reason Comments Follow-up HTN Encounter Details Date Type Department Care Team (Latest Contact Info) Description 06/18/2019 9:00 EST Office Visit [facility] Adult Primary Care - [address] [address] Jannette Perales NP [address] [place] [address] Essential (primary) hypertension (Primary Dx); Chronic renal insufficiency, stage III (moderate) (HCC-CMS); YOLANDA (obstructive sleep apnea); Need for influenza vaccination; Diastolic dysfunction; Hyperuricemia; Tear of right supraspinatus tendon Social History Tobacco Use Types Packs/Day Years [...] Sign Reading Time Taken Comments Blood Pressure 126/70 06/18/2019 0903 EST Pulse 52 06/18/2019 0903 EST Temperature 36.3 ??C (97.4 ??F) 06/18/2019 0903 EST Respiratory Rate 16 06/18/2019 0903 EST Oxygen Saturation 97% 06/18/2019 0903 EST Inhaled Oxygen Concentration - - Weight 74.4 kg (164 lb) 06/18/2019 0903 EST Height 152.4 cm (5') 06/18/2019 0903 EST Body Mass Index 32.03 06/18/2019 0903 EST documented in this encounter Ordered Prescriptions Prescription Sig Dispense Quantity Refills Last Filled Start Date End Date torsemide (DEMADEX) 20 mg tabletIndications:E ssential (primary) hypertension Take 1 Tab by mouth daily. 90 Tab 3 06/18/2019 03/13/2021 allopurinol (ZYLOPRIM) 100 mg tabletIndications:H yperuricemia Take 1 Tab by mouth daily. 90 Tab 3 06/18/2019 06/24/2020 documented in this encounter Progress Notes * Jannette Devi, DANE - 06/18/2019 0900 EST Progress Note Patient ID: Sona Rodrigez is a 73 y.o. female Date of Service: 06/18/2019 Reason for Visit: Follow-up (HTN) Assessment/Plan: BP in good range with lost dose of zestril. Her renal function is stable, BUN improved since last visit. Needs med refills today. Shoulder has been doing better, continues with home PT. Followed by Dr. Bravo. Diagnoses and all orders for this visit: Essential (primary) hypertension - torsemide; Take 1 Tab by mouth daily. Chronic renal insufficiency, stage III (moderate) ([facility]) - Basic Metabolic Panel (BMP); Future YOLANDA (obstructive sleep apnea) - CPAP/BiPAP Machine Order Need for influenza vaccination - Influenza Vaccine Quad (FLULAVAL/FLUARIX/FLUZONE) PF 0.5 ml IM (6 mos+) Diastolic dysfunction Hyperuricemia - allopurinol; Take 1 Tab by mouth daily. Tear of right supraspinatus tendon Subjective: HPI: BP meds decreased at last visit, lisinopril from 40 to 20mg. BUN and creatinine have improved. Thishas been sitting well with her. No CP/SOB, LE edema, cough, palpitations, dizziness, or lightheadedness. She is due for a flu shot. Her shoulder has been feeling better. She has been doing PT at home regularly. Followed by Dr. Bravo. They are deferring surgery since she has been doing well. ROS: See HPI Current Outpatient Medications: ??? allopurinol (ZYLOPRIM) 100 mg tablet, Take 1 Tab by mouth daily., Disp: 90 Tab, Rfl: 3 ??? aspirin chewable 81 mg tablet, Take 81 mg by mouth daily., [...] EYES NIGHTLY, Disp:, Rfl: 11 ??? metoprolol (LOPRESSOR) 25 mg tablet, Take 25 mg by mouth 2 times daily., Disp: , Rfl: ??? spironolactone (ALDACTONE) 25 mg tablet, Take 12.5 mg by mouth daily., Disp: , Rfl: ??? timolol (TIMOPTIC) 0.25 % ophthalmic solution, Place 1 Drop into both eyes 2 times daily., Disp: , Rfl: ??? torsemide (DEMADEX) 20 mg tablet, Take 1 Tab by mouth daily., Disp: 90 Tab, Rfl: 3 ??? traZODone (DESYREL) 150 mg tablet, 1 tab orally at bedtime as needed, Disp: , Rfl: ??? ZESTRIL 20 mg tablet, , Disp: , Rfl: Past Medical History: Diagnosis Date ??? Arthritis ??? Cancer (HCC-CMS) ??? Cerebral aneurysm ??? 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 Heartburn ??? Hypertension ??? Sleep apnea Past Surgical History: Procedure Laterality Date ??? APPENDECTOMY ??? BREAST SURGERY ??? CARDIAC SURGERY ??? CAROTID ARTERY STENTING ??? HYSTERECTOMY ??? JOINT REPLACEMENT ??? TONSILLECTOMY Family History Problem Relation Age of Onset [...] file Gets together: Not on file Attends episcopal service: Not on file Active member of [...] [Dipivefrin] Rash Eye drops Objective: VS: BP 126/70 (BP Cuff Location: Left arm, BP Patient Position: Sitting, BP Cuff Sizes: Adult, regular) Pulse 52 Temp 36.3 ??C (97.4 ??F) Resp 16 Ht 152.4 cm (60) Wt 74.4 kg (164 lb) SpO2 97% BMI 32.03 kg/m?? Physical Exam: Gen: no acute distress, pleasant, cooperative HEENT: Head normocephalic, sclera non-icteric, features and expressions symmetrical Neck: No carotid bruits Heart: regular rate and rhythm, no murmurs Lungs: clear to auscultation, unlabored Peripheral Pulses: + 1 pedal pulses bilaterally, +1-2 non-pitting edema to shins Skin: no lesions Neuro: alert & oriented, gait normal Results Only on 06/09/2019 Component Date Value Ref Range Status ??? BUN - [facility] 06/09/2019 27* 10 - 26 mg/dL Final ??? CALCIUM - [facility] 06/09/2019 9.1 8.5 - 10.5 mg/dL Final ??? Chloride 06/09/2019 105 96 - 110 mmol/L Final ??? CO2 Total 06/09/2019 24 22 - 32 mEq/L Final ??? Creatinine 06/09/2019 1.16* 0.52 - 1.04 mg/dL Final ??? eGFR 06/09/2019 46 Final Comment: Stage 3: Moderate renal impairment is defined as GFR 30-59 Multiply result by 1.210 for patients. eGFR calculated using the IDMS-traceable MDRD Study Equation. (effective 05/30/2014) ??? Anion Gap 06/09/2019 10 0 - 18 Final ??? GLUCOSE - [facility] 06/09/2019 103* 70 - 100 mg/dL Final ??? Potassium 06/09/2019 4.5 3.5 - 5.0 mEq/L Final ??? Sodium 06/09/2019 139 136 - 145 mEq/L Final Speech recognition software was used to complete this progress note. Typographical errors may be present. Jannette Devi NP documented in this encounter Plan of Treatment Not on file documented as of this encounter Visit Diagnoses Diagnosis Essential (primary) hypertension- Primary Unspecified essential hypertension Chronic renal insufficiency, stage III (moderate) ([facility]) Chronic kidney disease, Stage III (moderate) YOLANDA (obstructive sleep apnea) Obstructive sleep apnea (adult) (pediatric) Need for influenza vaccination Need for prophylactic vaccination and inoculation against influenza Diastolic dysfunction Heart disease, unspecified Hyperuricemia Other abnormal blood chemistry Tear of right supraspinatus tendon documented in this encounter Discontinued Medications Medication Sig Discontinue Reason Start Date End Da te allopurinol (ZYLOPRIM) 100 mg tablet Take 100 mg by mouth daily. Reorder 06/18/2019 torsemide (DEMADEX) 20 mg tablet Take 20 mg by mouth daily. Reorder 06/18/2019 documented as of this encounter Orders Immunization/Injection Count Last Ordered Date First Ordered Date INFLUENZA VACCINE QUAD (FLULAVAL/FLUARIX/FLUZONE) PF 0.5 ML IM (6 MOS+) 1 06/18/2019 Equipment Count Last Ordered Date First Orde red Date CPAP/BIPAP MACHINE ORDER 1 06/18/2019 documented in this encounter Care Teams Concrete Mixing Truck Driver Relationship Specialty Start Date End Date Jannette Perales NP [address] [place] [phone] PCP - General 11/13/17 documented as of this encounter
--- OUTSIDE RECORDS SUMMARY | 2024-07-09 00:17 | XMS_ITS | Encounter Summary ---
Author Organization [facility] Address [address] [place] [address] Care Team Providers Care Salvage Supervisor Name Role Phone Jannette Perales FLORENCIO Primary Care Provider [phone] Encounter Details Date Type Department Care Team (Late st Contact Info) Description 03/22/2020 14:00 EDT Community Health Team [address] [address] [facility] Social History Tobacco Use Types Packs/Day Years [...] as of this encounter Progress Notes * Ariadna Sanchez - 03/22/2020 1400 EDT The concept of ???Telemedicine?? has been described to the patient.? Patient has been informed of the anticipated benefits and possible risks.? Patient understands the information provided regardingtelemedicine, has had the opportunity to ask questions about this information, and all questions have been answered to patient???s satisfaction. Patient consents for the use of telemedicine in his/her behavioral health care and authorizes the transmission of any relevant medical information to providers and their staff involved in patient???s medical or mental health care. Called pt for scheduled telephone screening: Please share with me your understanding of what you were referred for. Get a better night???s sleep, relax more. Tell me about any symptoms you are currently experiencing. Not being able to fall asleep, takes three hours to fall asleep, been going on for a year, sleep apnea 15 years ago, re dx 5 years ago, use a machine, wake up to go to bathroom, wake up feeling okaybut then 4 hours later feel like nap sometimes yes and no. What is the intensity and frequency of these symptoms? __ Excessive worrying or fear __ Feeling excessively sad or low __ Confused thinking or problems concentrating & learning __ Extreme mood changes, including uncontrollable ???highs?? or feelings of euphoria __ Prolonged or strong feelings of irritability or anger __ Avoiding friends and social activities __ Difficulties understanding or relating to other people __ Changes in sleeping habits __ X Feeling tired and low energy __ Changes in eating habits __ X Changes in sex drive __ Physical ailments without obvious causes __ Overuse of substances like alcohol or drugs __ Delusions or hallucinations __ Lack of insight __ Inability to carry out daily activities or handle daily problems and stress __ Intense fear of weight gain or concern with appearance Have you taken or are you taking any medications to help address your symptoms? No, I was taking trazadone to help fall asleep but didn???t work, tried mirtazapine but bothered stomach and didn't help me fall asleep. Have you had thoughts in the last two weeks that you would be better off or of hurting yourself or someone else in some way? Have you ever attempted suicide? No s/I or h/I, no attempts. Have you had any mental health or substance use counseling before? No When, where, and for how long? What was helpful/not helpful about the counseling you received? Can you identify any goals or preferred outcomes for counseling? What do you want to focus your counseling on? Be able to relax more and fall asleep faster. Would they be able/willing to meet for an initial intake to further assess and then see about apptsgoing forward, which might need to look like 1x/month? Yes. documented in this encounter Plan of Treatment Not on file documented as of this encounter Visit Diagnoses Not on filedocumented in this encounter Care Teams Salvage Supervisor Relationship Specialty Start Date End Date Jannette Perales NP [address] [place] [phone] PCP - General 11/13/17 documented as of this encounter
--- OUTSIDE RECORDS SUMMARY | 2024-07-09 00:17 | XMS_ITS | Encounter Summary ---
Author Organization [facility] Address [address] [place] [address] Care Team Providers Care Supply Chain Analyst Name Role Phone Jannette Perales NP Primary Care Provider [phone] Reason for Visit * Reason Onset Date Comments Medications Refill 03/22/2020 Encounter Details Date Type Department Care Team (Late st Contact Info) Description 03/22/2020 Refill [facility] Adult Primary Care - [place] [address] [place], [place] [phone] Jannette Perales NP [address] [place] [phone] Medications Refill Social History Tobacco Use Types [...] mg tabletIndications:Ar teriosclerotic cardiovascular disease Take 1 Tab by mouth daily. 30 Tab 11 03/27/2020 1 documented in this encounter Miscellaneous Notes * Telephone Encounter - Lora Núñez RN - 03/27/2020 0825 EDT Left detailed VM advising script sent today, apologized for the delay. * Telephone Encounter - Shelby Oliver RN - 03/22/2020 0916 EDT CHRISTIAN 09/07 Next Scheduled 03/07/2020 Lipitor not on patient's med list. Called patient and determined from her that her insurance is no longer cover Brand Crestor and she can't take the generic of that without developing nausea and severe dizziness. Jannette had discussed with her possibly ordering Lipitor. Please advise. * Telephone Encounter - Fidelina Schaefer - 03/22/2020 0909 EDT Still looking for her Lipitor. Pharm never received it. documented in this encounter Plan of Treatment Not on file documented as of this encounter Visit Diagnoses Diagnosis Arteriosclerotic cardiovascular disease- Primary Unspecified cardiovascular disease documented in this encounter Discontinued Medications Medication Sig Discontinue Reason Start Date End Da te CRESTOR 20 mg tabletIndications:Mixed hyperlipidemia Take 1 Tab by mouth daily. *BRAND NAME ONLY* Alternate therapy 03/07/2020 03/27/2020 documented as of this encounter Care Teams Supply Chain Analyst Relationship Specialty Start Date End Date Jannette Perales NP [address] [place] [phone] PCP - General 11/13/17 documented as of this encounter
--- OUTSIDE RECORDS SUMMARY | 2024-07-09 00:17 | XMS_ITS | Encounter Summary ---
Author Organization [facility] Address [address] [place] [address] Care Team Providers Care Shaft Mechanic Name Role Phone Jannette Perales PAPER CARRIER Primary Care Provider [phone] Encounter Details Date Type Department Care Team (Late st Contact Info) Description 06/14/2019 Orders Only [facility] - [facility] Adult Primary Care - [place] [address] [place] [address] Jannette Perales NP [address] [place] [address] Social History Tobacco Use Types [...] Discontinue Reason Start Date End Da te oxyCODONE (ROXICODONE) 5 mg/5 mL solution Take 5 mL by mouth every 4 hours as needed for Pain. Daily Max: 30 mg Therapy completed 12/03/2017 06/14/2019 ondansetron (ZOFRAN-ODT) 4 mg disintegrating tablet Take 1 Tab by mouth every 8 hours as needed for Nausea. Therapy completed 12/03/2017 06/14/2019 ibuprofen (MOTRIN) 600 mg tablet Take 1 Tab by mouth every 6 hours as needed for Pain. Therapy completed 12/03/2017 06/14/2019 traZODone (DESYREL) 150 mg tablet Take 100 mg by mouth at bedtime. Therapy completed 06/14/2019 rosuvastatin (CRESTOR) 10 mg tablet Take 10 mg by mouth at bedtime. Therapy completed 06/14/2019 lisinopril (ZESTRIL) 40 mg tablet Take 40 mg by mouth daily. Therapy completed 06/14/2019 LATANOPROST (XALATAN OPHTHALMIC) Apply to eye. Therapy completed 06/14/2019 acetaminophen (TYLENOL) 500 mg tablet Take 500 mg by mouth every 6 hours as needed for Pain. Therapy completed 06/14/2019 documented as of this encounter Historical Medications * This list may reflect changes made after this encounter. latanoprost (XALATAN) 0.005 % ophthalmic solution PLACE ONE DROP INTO BOTH EYES NIGHTLY 11 05/27/2019 ZESTRIL 20 mg tablet Take by mouth daily. 06/04/2019 03/07/2020 CRESTOR 20 mg tablet Take 20 mg by mouth daily. 04/21/2019 03/07/2020 traZODone (DESYREL) 150 mg tablet 1 tab orally at bedtime as needed 04/07/2019 09/14/2019 added in this encounter Care Teams Shaft Mechanic Relationship Specialty Start Date End Date Jannette Perales NP [address] [place] [phone] PCP - General 11/13/17 documented as of this encounter
--- OUTSIDE RECORDS SUMMARY | 2024-07-09 00:17 | XMS_ITS | Encounter Summary ---
Author Organization [facility] Address [address] [place] [address] Care Team Providers Care Director Medicare Sales Name Role Phone Jannette Perales NP Primary Care Provider [phone] Reason for Visit * Reason Comments Other Encounter Details Date Type Department Care Team ([facility] st Contact Info) Description 06/12/2019 Refill [facility] Adult Primary Care - [place] [address] [place] [address] Jannette Perales NP [address] [place] [address] Other Social History Tobacco Use [...] Telephone Encounter - Lora Núñez RN - 07/13/2019 1716 EST Script changed during office visit and sent by provider. documented in this encounter Plan of Treatment Not on file documented as of this encounter Visit Diagnoses Not on filedocumented in this encounter Care Teams Director Medicare Sales Relationship Specialty Start Date End Date Jannette Perales NP [address] [place] [address] PCP - General 11/13/17 documented as of this encounter
--- OUTSIDE RECORDS SUMMARY | 2024-07-09 00:17 | XMS_ITS | Encounter Summary ---
Author Organization [facility] Address [address] [place] [address] Care Team Providers Care Wood Buffer Name Role Phone Jannette Perales CASE PLANNER Primary Care Provider [phone] Encounter Details Date Type Department Care Team (Late st Contact Info) Description 03/01/2020 Results Only [facility] Adult Primary Care - [place] [address] [place] [address] Jannette Perales NP [address] [place] [address] Social History Tobacco Use Types [...] Associated Diagnosis Comments VIT D, 25-HYDROXY - [facility] Routine 03/01/2020 9:54 EDT LIPID PROFILE (INCLUDES CHOLESTEROL, TRIGLYCERIDES, HDL, LDL) Routine 03/01/2020 9:53 EDT COMPREHENSIVE METABOLIC PANEL (CMP) Routine 03/01/2020 9:53 EDT documented in this encounter Results * VIT D, 25-HYDROXY - [facility] (03/01/2020 9:54 EDT) VIT D, 25 HYDROXY - [facility] 36.2 30 - 100 ng/ml 03/01/2020 11:06 EDT [facility] Comment: ? 25-Hydroxy D Total (D2+D3) ?Expected Values Deficient: ?<20 ng/ml Insufficient: ? 20- <30 ng/ml Sufficient: ? 30-100 ng/ml Potential intoxication: >100 ng/ml 03/01/2020 9:54 EDT 03/01/2020 9:54 EDT Narrative [facility] - 03/01/2020 11:06 EDT Does PT Have a Latex Allergy? NO Jannette Perales CASE PLANNER CHEMISTRY & BLOOD GAS ORDERABLES Final Result Performing Organization Address City/State/[facility] Co de Phone Number [facility] [address] [place] [address] * (ABNORMAL) LIPID PROFILE (INCLUDES CHOLESTEROL, TRIGLYCERIDES, HDL, LDL) (03/01/2020 9:53 EDT) Pathologist [facility] Triglyceride 205 <150 mg/dL 03/01/2020 10:50 EDT [facility] Comment: Adult: Normal: ?<150 mg/dl ? Borderline High: 150-199 mg/dl ? High: ?200-499 mg/dl ? Very High: >ya=539 Cholesterol 118 <200 mg/dL 03/01/2020 10:50 EDT [facility] Comment: Acceptable: ??<200 Borderline: ??200-239 High: ?> or = 240 Chol/HDL Ratio 2.8 0 - 4.5 03/01/2020 10:50 EDT [facility] Comment: DESIRABLE RATIO IS LESS THAN 4.1 PATIENTS ARE CONSIDERED AT RISK: WOMEN RATIO >5 MEN RATIO >6 FASTING? - CV Yes 0 9:54 EDT [facility] HDL 41 40 - 60 mg/dL 03/01/2020 10:50 EDT [facility] Comment: ?? Reference Range Low: ? < 40 ??mg/dL Normal: ??40-60 mg/dL High: ?>= 60 mg/dL LDL CHOLESTEROL - [facility] 36(L) 60 - 100 mg/dL 03/01/2020 10:50 EDT [facility] Non HDL Cholesterol 77 mg/dl 03/01/2020 10:50 EDT [facility] Comment: Desirable: ?Less than 130 Borderline High: ??130-159 High: ? 160-189 Very High: ?Greater than or equal to 190 03/01/2020 9:53 EDT 03/01/2020 9:54 EDT Narrative [facility] - 03/01/2020 10:50 EDT Does PT Have a Latex Allergy? NO us Jannette Perales CASE PLANNER CHEMISTRY & BLOOD GAS ORDERABLES Final Result Performing Organization Address City/State/[facility] Co de Phone Number [facility] [address] [place] [address] * (ABNORMAL) COMPREHENSIVE METABOLIC PANEL (CMP) (03/01/2020 9:53 EDT) Albumin % 4.4 3.4 - 4.9 g/dL 03/01/2020 10:50 EDT [facility] ALKALINE PHOSPHATASE - [facility] 52 38 - 126 U/L 03/01/2020 10:50 EDT [facility] BILIRUBIN TOTAL 0.6 0.2 - 1.3 mg/dL 03/01/2020 10:50 EDT [facility] BUN - [facility] 39(H) 10 - 26 mg/dL 03/01/2020 10:50 EDT [facility] CALCIUM - [facility] 9.2 8.5 - 10.5 mg/dL 03/01/2020 10:50 EDT [facility] Chloride 108 96 - 110 mmol/L 03/01/2020 10:50 [facility] CO2 Total 21(L) 22 - 32 mEq/L 03/01/2020 10:50 [facility] CREATININE 1.24(H) 0.52 - 1.04 mg/dL 03/01/2020 10:50 [facility] eGFR 42 03/01/2020 10:50 [facility] Comment: Stage 3: Moderate renal impairment is defined as GFR 30-59 Multiply result by 1.210 for patients. eGFR calculated using the IDMS-traceable MDRD Study Equation. ??(effective 05/30/2014) Anion Gap 11 0 - 18 03/01/2020 10:50 [facility] GLUCOSE - [facility] 98 70 - 100 mg/dL 03/01/2020 10:50 [facility] Potassium 4.4 3.5 - 5.0 mEq/L 03/01/2020 10:50 [facility] Sodium 140 136 - 145 mEq/L 03/01/2020 10:50 [facility] TOTAL PROTEIN - [facility] 7.1 6.2 - 8.2 gm/dL 03/01/2020 10:50 [facility] SGOT/AST - [facility] 28 14 - 36 U/L 03/01/2020 10:50 [facility] SGPT/ALT - [facility] 16 0 - 35 U/L 0 10:50 [facility] 03/01/2020 9:53 EDT 03/01/2020 9:54 EDT Narrative [facility] - 03/01/2020 10:50 EDT Does PT Have a Latex Allergy? NO us Jannette Perales NP CHEMISTRY & BLOOD GAS ORDERABLES Final Result [facility] [address] [place] [address] documented in this encounter Visit Diagnoses Not on filedocumented in this encounter Care Teams Wood Buffer Relationship Specialty Start Date End Date Jannette Perales NP [address] [place] [address] PCP - General 11/13/17 documented as of this encounter
--- OUTSIDE RECORDS SUMMARY | 2024-07-09 00:17 | XMS_ITS | Encounter Summary ---
Author Organization [facility] Address [address] [place] [address] Care Team Providers Care Manager Regional Name Role Phone Jannette Perales NP Primary Care Provider Reason for Visit * Reason Comments Other Encounter Details Date Type Department Care Team (Late st Contact Info) Description 07/05/2019 Refill [facility] Adult Primary Care - [place] [address] [place] [address] Jannette Perales NP [address] [place] [address] Other Social History Tobacco Use [...] Telephone Encounter - Lora Núñez RN - 07/06/2019 1257 EST Script refused. Wrong pharmacy. Pt uses [facility] in [facility] for all meds. documented in this encounter Plan of Treatment Not on file documented as of this encounter Visit Diagnoses Diagnosis Hyperuricemia- Primary Other abnormal blood chemistry documented in this encounter Care Teams Manager Regional Relationship Specialty Start Date End Date Jannette Perales NP [address] [place] [address] PCP - General 11/13/17 documented as of this encounter
--- OUTSIDE RECORDS SUMMARY | 2024-07-09 00:17 | XMS_ITS | Encounter Summary ---
Author Organization [facility] Address [address] [place] [address] Care Team Providers Care Script Girl Name Role Phone Jannette Perales CORRECTIVE THERAPIST Primary Care Provider [phone] Reason for Visit * Reason Onset Date Comments Follow-up Diagnostic PSG 12/16/2017 Encounter Details Date Type Department Care Team (Late st Contact Info) Description 12/16/2017 Telephone [facility] General Surgery - [address] [address] Alejandro Calloway MD [address] [place] [address], [address] [place] [address] Follow-up Diagnostic PSG Social History Tobacco Use Types Packs/Day Years [...] encounter Miscellaneous Notes * Telephone Encounter - Melissa Orozco RN - 12/16/2017 2350 EDT BRIEF OP NOTE Preop dx: GERD Postop dx: same Procedure: lap Sharon and cruroplasty Surgeon: Elli DOS: 12/03/17 Patient reports that she is having diarrhea and is asking what she can take for it. She states that she is having 4 loose stools/day and a lot of gas with them. She was advised that this is normal after the surgery she had and will usually resolve over time. Discussed diet options, she was advised not to take an anti diarrheal med such as imodium. She states that she is drinking 2quarts of water/day. She has a follow up appointment with Dr. Calloway 01/01/18 and was encouraged tocall in the interim if she has further concerns. * Telephone Encounter - Rosalie Morales - 12/16/2017 8795 EDT Patient said since her surgery she has had diarrhea. Patient would like to know if there is something she could take. documented in this encounter Plan of Treatment Not on file documented as of this encounter Visit Diagnoses Not on filedocumented in this encounter Care Teams Script Girl Relationship Specialty Start Date End Date Jannette Perales NP [address] [place] [phone] PCP - General 11/13/17 documented as of this encounter
--- OUTSIDE RECORDS SUMMARY | 2024-07-09 00:17 | XMS_ITS | Encounter Summary ---
Author Organization [facility] Address [address] [place] [id number] Care Team Providers Care Hospital Chief Executive Officer Name Role Phone Jannette Perales FLORENCIO Primary Care Provider [phone] Reason for Visit * Reason Comments Follow-up 2 month f/u Encounter Details Date Type Department Care Team (Late st Contact Info) Description 03/16/2018 10:30 EDT Office Visit [facility] General Surgery - [address] [address] Alejandro Calloway MD [address] [place] [address], [address] [place] [address] Gastroesophageal reflux disease without esophagitis [...] Sign Reading Time Taken Comments Blood Pressure 120/78 03/16/2018 0957 EDT Pulse 68 03/16/2018 0957 EDT Temperature - - Respiratory Rate - - Oxygen Saturation - - Inhaled Oxygen Concentration - - Weight 73.5 kg (162 lb) 03/16/2018 0957 EDT Height 152.4 cm (5') 03/16/2018 0957 EDT Body Mass Index 31.64 03/16/2018 0957 EDT documented in this encounter Discharge Diagnoses Diagnosis K21.9 Gastro-esophageal reflux disease without esophagitis-K21.9[ICD-10-CM] documented in this encounter Discharge Disposition Disposition Code Departure Means Destination Auto Discharge documented in this encounter Progress Notes * Tatiana Stanley - 03/16/2018 1030 EDT [facility] General Surgery Services Patient Name: Sona Rodrigez Date: 03/16/2018 GERD-HRQL SCALE Patient symptoms are noted as follows: How bad is your heartburn? 0 = No symptoms Heartburn when lying down? 0 = No symptoms Heartburn when standing up? 0 = No symptoms Heartburn after meals? 0 = No symptoms Does heartburn change your diet? 0 = No symptoms Does heartburnwake you from sleep? 0 = No symptoms Do you have difficulty swallowing? 0 = No symptoms Do you have pain with swallowing? 0 = No symptoms Do you have gassy or bloatingfeelings? 3 = Symptoms bothersome everyday If you take medication, does it affect your daily life? 0 = No symptoms How satisfied are you with your present condition? Satisfied Total HRQL Score: 3 * Alejandro Calloway MD - 03/16/2018 1030 EDT Date of Service: 03/16/2018 Subjective: I saw Sona Rodrigez in the office today for follow-up approximately 3 months status post laparoscopic Sharon fundoplication. She has no heartburn or regurgitation. She has some gas bloat, some excess flatus. She can belch slightly. She has no dysphagia. Her GERD quality of life score was 3 and she was satisfied with her present condition. Objective: On exam, her abdomen is soft, non-distended, and non-tender. Her incisions are healing well. Assessment: Status post laparoscopic Sharon fundoplication. Doing well and recovering nicely with no GERD. Plan: I counseled Sona Rodrigez on the signs and symptoms of recurring GERD and advised her to follow upas needed. Primary Care Provider: FANNY Herrera Referring Provider: Jannette Wageman, BRUSHER HAND documented in this encounter Plan of Treatment Not on file documented as of this encounter Visit Diagnoses Diagnosis Gastroesophageal reflux disease without esophagitis- Primary Esophageal reflux documented in this encounter Care Teams Hospital Chief Executive Officer Relationship Specialty Start Date End Date Jannette Perales NP [address] [place] [phone] PCP - General 11/13/17 documented as of this encounter
--- OUTSIDE RECORDS SUMMARY | 2024-07-09 00:17 | XMS_ITS | Encounter Summary ---
Author Organization [facility] Address [address] [place] [address] Care Team Providers Care Pediatric Licensed Practical Nurse Name Role Phone Jannette Perales NP Primary Care Provider [phone] Encounter Details Date Type Department Care Team (Late st Contact Info) Description 06/09/2019 Results Only [facility] - Main [place] [address] [place], [place] [id number] Jannette Perales NP [address] [place] [address] Social History Tobacco Use Types [...] Diagnosis Comments BASIC METABOLIC PANEL (BMP) Routine 06/09/2019 8:59 EST documented in this encounter Results * (ABNORMAL) BASIC METABOLIC PANEL (BMP) (06/09/2019 8:59 EST) BUN - [facility] 27(H) 10 - 26 mg/dL 06/09/2019 10:02 [facility] CALCIUM - [facility] 9.1 8.5 - 10.5 mg/dL 06/09/2019 10:02 [facility] Chloride 105 96 - 110 mmol/L 06/09/2019 10:02 [facility] CO2 Total 24 22 - 32 mEq/L 06/09/2019 10:02 [facility] CREATININE 1.16(H) 0.52 - 1.04 mg/dL 06/09/2019 10:02 [facility] eGFR 46 06/09/2019 10:02 [facility] Comment: Stage 3: Moderate renal impairment is defined as GFR 30-59 Multiply result by 1.210 for patients. eGFR calculated using the IDMS-traceable MDRD Study Equation. ??(effective 05/30/2014) Anion Gap 10 0 - 18 06/09/2019 10:02 [facility] GLUCOSE - [facility] 103(H) 70 - 100 mg/dL 06/09/2019 10:02 [facility] Potassium 4.5 3.5 - 5.0 mEq/L 06/09/2019 10:02 [facility] Sodium 139 136 - 145 mEq/L 06/09/2019 10:02 [facility] 06/09/2019 8:59 EST 06/09/2019 8:59 EST Narrative [facility] - 06/09/2019 10:02 EST Does PT Have a Latex Allergy? NO us Jannette Perales TANKER SERVICE ATTENDANT CHEMISTRY & BLOOD GAS ORDERABLES Final Result [facility] documented in this encounter Visit Diagnoses Not on filedocumented in this encounter Care Teams Pediatric Licensed Practical Nurse Relationship Specialty Start Date End Date Jannette Perales NP [address] [place] [phone] PCP - General 11/13/17 documented as of this encounter
--- OUTSIDE RECORDS SUMMARY | 2024-07-09 00:17 | XMS_ITS | Encounter Summary ---
Author Organization [facility] Address [address] [place] [address] Care Team Providers Care Territory Manager Name Role Phone Jannette Perales NP Primary Care Provider [phone] Encounter Details Date Type Department Care Team (Late st Contact Info) Description 02/10/2019 Historical Results Only [facility] - Main [place] [address] [place], [place] [address] Jannette Perales NP [address] [place] [address] Social History Tobacco Use Types [...] Associated Diagnosis Comments VIT D, 25-HYDROXY - [facility] Routine 02/10/2019 8:05 EDT HEMOGLOBIN A1C Routine 02/10/2019 8:05 EDT LIPID PROFILE (INCLUDES CHOLESTEROL, TRIGLYCERIDES, HDL, LDL) Routine 02/10/2019 8:05 EDT COMPREHENSIVE METABOLIC PANEL (CMP) Routine 02/10/2019 8:05 EDT documented in this encounter Results * (ABNORMAL) LIPID PROFILE (INCLUDES CHOLESTEROL, TRIGLYCERIDES, HDL, LDL) (02/10/2019 8:05 EDT) Triglyceride 166 <150 mg/dL 02/10/2019 9:14 [facility] Comment: Adult: Normal: ?<150 mg/dl ? Borderline High: 150-199 mg/dl ? High: ?200-499 mg/dl ? Very High: >kr=[id number] Cholesterol 110 <200 mg/dL 02/10/2019 9:14 [facility] Comment: Acceptable: ??<200 Borderline: ??200-239 High: ?> or = 240 Chol/HDL Ratio 3.0 0 - 4.5 02/10/2019 9:14 [facility] Comment: DESIRABLE RATIO IS LESS THAN 4.1 PATIENTS ARE CONSIDERED AT RISK: WOMEN RATIO >5 MEN RATIO >6 FASTING? - [facility] Yes 8:05 [facility] HDL 36(L) 40 - 60 mg/dL 02/10/2019 9:14 [facility] Comment: ?? Reference Range Low: ? < 40 ??mg/dL Normal: ??40-60 mg/dL High: ?>= 60 mg/dL LDL CHOLESTEROL - [facility] 41(L) 60 - 100 mg/dL 02/10/2019 9:14 [facility] Non HDL Cholesterol 74 mg/dl 02/10/2019 9:14 [facility] Comment: Desirable: ?Less than 130 Borderline High: ??130-159 High: ? 160-189 Very High: ?Greater than or equal to 190 02/10/2019 8:05 EDT 02/10/2019 8:05 EDT Narrative [facility] - 02/10/2019 9:14 EDT Does PT Have a Latex Allergy? NO us Jannette Perales TECHNICAL SERVICE ENGINEER CHEMISTRY & BLOOD GAS ORDERABLES Final Result [facility] * (ABNORMAL) COMPREHENSIVE METABOLIC PANEL (CMP) (02/10/2019 8:05 EDT) Albumin % 4.0 3.4 - 4.9 g/dL 02/10/2019 9:14 [facility] ALKALINE PHOSPHATASE - [facility] 48 38 - 126 U/L 02/10/2019 9:14 [facility] BILIRUBIN TOTAL 0.4 0.2 - 1.3 mg/dL 02/10/2019 9:14 [facility] BUN - [facility] 35(H) 10 - 26 mg/dL 02/10/2019 9:14 [facility] CALCIUM - [facility] 9.1 8.5 - 10.5 mg/dL 02/10/2019 9:14 [facility] Chloride 107 96 - 110 mmol/L 02/10/2019 9:14 [facility] CO2 Total 21(L) 22 - 32 mEq/L 02/10/2019 9:14 [facility] CREATININE 1.20(H) 0.52 - 1.04 mg/dL 02/10/2019 9:14 [facility] eGFR 44 02/10/2019 9:14 [facility] Comment: Stage 3: Moderate renal impairment is defined as GFR 30-59 Multiply result by 1.210 for patients. eGFR calculated using the IDMS-traceable MDRD Study Equation. ??(effective 05/30/2014) Anion Gap 9 0 - 18 02/10/2019 9:14 [facility] GLUCOSE - [facility] 94 70 - 100 mg/dL 02/10/2019 9:14 [facility] Potassium 4.4 3.5 - 5.0 mEq/L 02/10/2019 9:14 [facility] Sodium 137 136 - 145 mEq/L 02/10/2019 9:14 [facility] TOTAL PROTEIN - [facility] 6.5 6.2 - 8.2 gm/dL 02/10/2019 9:14 [facility] SGOT/AST - [facility] 24 14 - 36 U/L 02/10/2019 9:14 EDT [facility] SGPT/ALT - [facility] 15 9 - 52 U/L 9 9:14 EDT [facility] 02/10/2019 8:05 EDT 02/10/2019 8:05 EDT Narrative [facility] - 02/10/2019 9:14 EDT Does PT Have a Latex Allergy? NO us Jannette Perales TECHNICAL SERVICE ENGINEER CHEMISTRY & BLOOD GAS ORDERABLES Final Result [facility] * (ABNORMAL) HEMOGLOBIN A1C (02/10/2019 8:05 EDT) Hemoglobin A1c 6.2(H) 4.0 - 6.0 % 02/10/2019 10:46 EDT [facility] Comment: > or =18 years: ??Increased risk for diabetes (prediabetes): 5.7-6.4% Diabetes: > or =6.5% Therapeutic goals for glycemic control (ADA) Adults: - Goal of therapy: <7.0% HbA1c - Action suggested: >8.0% HbA1c Pediatric patients: - Toddlers and preschoolers: <8.5% (but >7.5%) - School age (6-12 years): <8% - Adolescents and young adults (13-19 years): <7.5% Est Avg Glucose 131 mg/dL 9 10:46 EDT [facility] 02/10/2019 8:05 EDT 02/10/2019 8:05 EDT Narrative [facility] - 02/10/2019 10:46 EDT Does PT Have a Latex Allergy? NO us Jannette Perales TECHNICAL SERVICE ENGINEER CHEMISTRY & BLOOD GAS ORDERABLES Final Result [facility] * VIT D, 25-HYDROXY - [facility] (02/10/2019 8:05 EDT) VIT D, 25 HYDROXY - [facility] 44.6 30 - 100 ng/ml 02/10/2019 9:24 EDT [facility] Comment: ? 25-Hydroxy D Total (D2+D3) ?Expected Values Deficient: ?<20 ng/ml Insufficient: ? 20- <30 ng/ml Sufficient: ? 30-100 ng/ml Potential intoxication: >100 ng/ml 02/10/2019 8:05 EDT 02/10/2019 8:05 EDT Narrative [facility] - 02/10/2019 9:24 EDT Does PT Have a Latex Allergy? NO us Jannette Perales TECHNICAL SERVICE ENGINEER CHEMISTRY & BLOOD GAS ORDERABLES Final Result [facility] documented in this encounter Visit Diagnoses Not on filedocumented in this encounter Care Teams Territory Manager Relationship Specialty Start Date End Date Jannette Perales NP [address] [place] [phone] PCP - General 11/13/17 documented as of this encounter
--- OUTSIDE RECORDS SUMMARY | 2024-07-09 00:18 | XMS_ITS | Encounter Summary ---
Author Organization [facility] Address [address] [place] [address] Care Team Providers Care Infant Childcare Provider Name Role Phone Rebecca Kumar MD Primary Care Provider Unavailab Kaycee Wayne MD Primary Care Provid er Unavailable Jannette Perales NP Primary Care Provider [phone] Encounter Details Date Type Department Care Team (Late st Contact Info) Description 01/12/2016 Historical Results Only [facility] Radiology Results [address] [place] [address] Amy Ramos, DO [address] [place] [address] Social History Tobacco Use Types Packs/Day Years Used Date Smoking Tobacco: Never Assessed Comments Unknown Sex and Gender Information Value Date Recorded Sex Assigned at Not on file Legal Sex Female 18:07 EST Gender Identity Female 02/07/2020 10:33 EDT Sexual Orientation Not on file documented as of this encounter Plan of Treatment Not on file documented as of this encounter Procedures Procedure Name Priority Date/Time Associated Diagnosis Comments XR CHEST 2 VIEWS 01/12/2016 14:5 6 EDT documented in this encounter Results * XR CHEST 2 VIEWS (01/12/2016 14:56 EDT) Anatomical Region Laterality Modality Other 01/12/2016 14:5 6 EDT Narrative 01/12/2016 15:00 EDT ? EXAM: RADIOLOGY/CHEST (PA ?? LAT) ?EX. D/ (1044) ? CLINICAL INFORMATION: ? R06.09, EXERTIONAL DYSPNEA, RALES BILAT BASES, ? REMOTE H/O ASCVD WITH STENTING 2007 ? CHEST (PA ?? LAT) ? Signs and Symptoms/Comments: ??R06.09, EXERTIONAL DYSPNEA, RALES BILAT ? BASES, REMOTE H/O ASCVD WITH STENTING 2006 ? Comparisons: 02/03/2013, 09/17/2007 ? Findings: ? PA and lateral views of the chest were performed. The lungs are ? clear. No pneumothorax or pleural effusion is present. The aorta is ? tortuous. The cardiomediastinal silhouette and pulmonary vascularity ? are otherwise unremarkable. Thoracolumbar fusion hardware is present. ? Surgical clips project over the left axilla. ? IMPRESSION: ? No acute cardiopulmonary process. ? REPORT SIGNED IN OTHER VENDOR SYSTEM 01/12/2016 ?Reported By: Gabino Ann MD ? CC: ? Transcribed Date/Time: 01/12/2016 (1500) ? Ortho Nurse: ? Printed Date/Time: 01/08/2019 (7169) ? PAGE 1 ? Signed Report ? Procedure Note Gabino Ann MD - 06/02/2019 EXAM: RADIOLOGY/CHEST (PA LAT) EX. D/ (1044) CLINICAL INFORMATION: R06.09, EXERTIONAL DYSPNEA, RALES BILAT BASES, REMOTE H/O ASCVD WITH STENTING 2006 CHEST (PA LAT) Signs and Symptoms/Comments: R06.09, EXERTIONAL DYSPNEA, RALESBILAT BASES, REMOTE H/O ASCVD WITH STENTING 2006 Comparisons: 02/03/2013, 09/17/2007 Findings: PA and lateral views of the chest were performed. The lungs are clear. No pneumothorax or pleural effusion is present. The aorta is tortuous. The cardiomediastinal silhouette and pulmonaryvascularity are otherwise unremarkable. Thoracolumbar fusion hardware ispresent. Surgical clips project over the left axilla. IMPRESSION: No acute cardiopulmonary process. REPORT SIGNED IN OTHER VENDOR SYSTEM 01/12/2016 Reported By: Gabino Ann MD CC: Transcribed Date/Time: 01/12/2016 (1500) Ortho Nurse: Printed Date/Time: 01/08/2019 (3132) PAGE 1 Signed Report Amy Ramos DO [facility] DIAGNOSTIC IMAGING ORDERA BLES Final Result documented in this encounter Visit Diagnoses Not on filedocumented in this encounter Care Teams Infant Childcare Provider Relationship Specialty Start Date End Date Rebecca Kumar MD PCP - General 04/24/09 07/23/16 Kaycee Cannon MD [address] [place] [id number] PCP - General 07/24/16 11/12/17 Jannette Perales NP [address] [place] [phone] PCP - General 11/13/17 documented as of this encounter
--- OUTSIDE RECORDS SUMMARY | 2024-07-09 00:18 | XMS_ITS | Encounter Summary ---
Author Organization [facility] [place] [address] Care Team Providers Care Water Filtration Technician Name Role Phone Jannette Perales DANE Primary Care Provider [phone] Reason for Visit * Reason Onset Date Comments New Medication Request 07/31/2021 Insurance recommendation for alternative Encounter Details Date Type Department Care Team (Late st Contact Info) Description 07/31/2021 [place] [address] Augustine Regan MD [facility] [place] [address] New Medication Request (Insurance recommendation for alternative) Social History Tobacco Use Types Packs/Day Years Used Date Smoking Tobacco: Never Smokeless Tobacco: Never Alcohol Use Standard Drinks/Week Comments Not Currently 7 (1 standard drink = 0.6 oz pur e alcohol) Sex and Gender Information Value Date Recorded Sex Assigned at Not on file Gender Identity Not on file Sexual Orientation Not on file documented as of this encounter Miscellaneous Notes * Telephone Encounter - Lakesha Ramirez COT - 07/31/2021 10:15 AM EST Called patient to discuss option. She prefers to stay with Azopt (brand name). * Telephone Encounter - Lakesha Ramirez COT - 07/31/2021 8:39 AM EST [employer] faxed request/recommendation for cost savings of $420.00 annually to patient with change from Azopt to Brinzolamide 1% which is now available. documented in this encounter Plan of Treatment Upcoming Encounters Date Type Department Care Team (Late st Contact Info) Description 11/19/2024 9:45 AM EDT Office [place] [address] Augustine Regan MD [facility] [place] [address] documented as of this encounter Visit Diagnoses Not on filedocumented in this encounter Care Teams Water Filtration Technician Relationship Specialty Start Date End Date Jannette Perales APRN PCP - General General Internal Medicine 08/18/17 documented as of this encounter
--- OUTSIDE RECORDS SUMMARY | 2024-07-09 00:18 | XMS_ITS | Encounter Summary ---
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 Name Role Phone Jannette Perales FLORENCIO Primary Care Provider [phone] Encounter Details Date Type Department Care Team (Late st Contact Info) Description 12/03/2017 6:48 EDT - 12/03/2017 17:14 EDT Hospital Encounter [facility] Perioperative Services- [address] [address] Alejandro Calloway MD [address] [place] [address], [address] [place] [address] Functional dyspepsia (Primary Dx) Discharge Disposition: Home or Self Care Social [...] Sign Reading Time Taken Comments Blood Pressure 162/86 12/03/2017 1645 EDT Pulse - - Temperature 36.1 ??C (97 ??F) 12/03/2017 1645 EDT Respiratory Rate 20 12/03/2017 1645 EDT Oxygen Saturation 94% 12/03/2017 1645 EDT Inhaled Oxygen Concentration - - Weight 81.6 kg (180 lb) 11/26/2017 1603 EDT Height 152.4 cm (5') 11/26/2017 1603 EDT Body Mass Index 35.15 11/26/2017 1603 EDT documented in this encounter Discharge Diagnoses Diagnosis K21.9 Gastro-esophageal reflux disease without esophagitis-K21.9[ICD-10-CM] K44.9 Diaphragmatic hernia without obstruction or gangrene-K44.9[ICD-10-CM] R00.1 Bradycardia, unspecified-R00.1[ICD-10-CM] E66.9 Obesity, unspecified-E66.9[ICD-10-CM] Z68.35 Body mass index (BMI) 35.0-35.9, adult-Z68.35[ICD-10-CM] G47.33 Obstructive sleep apnea (adult) (pediatric)-G47.33[ICD-10-CM] I25.10 Atherosclerotic heart disease of [place] coronary artery without angina pectoris-I25.10[ICD-10-CM] I10 Essential (primary) hypertension-I10[ICD-10-CM] Z95.5 Presence of coronary angioplasty implant and graft-Z95.5[ICD-10-CM] Z86.73 Personal history of transient ischemic attack (TIA), and cerebral infarction without residual deficits-Z86.73[ICD-10-CM] 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 Calloway in 3-4 weeks; please call to schedule an appointment or with any questions/concerns: [phone]. -You may remove the outer clear plastic dressing/gauze on Friday evening, 12/05; allow steri-strips to fall off on their own in 7-10 days--if they have not fallen off in 14 days, you may remove them yourself -No driving while taking narcotic pain medication -No heavy lifting (nothing greater than a gallon of milk) for 4-6 weeks or until cleared to do so by Dr. Calloway -No swimming or baths; shower only Specific instructions regarding your post Trung diet: -Please follow the diet instructions below, however please wait 2 weeks (not 1) in between diet progression -You may stop taking your Ranitidine now that you have had this anti-reflux procedure DIET AFTER LAPAROSCOPIC TRUNG FUNDOPLICATION Blenderized diet for a minimum of 3 days - this includes all NON-carbonated beverages, baby food, apple sauce, yogurt, cream of wheat, thin soups, etc. Remember to stay well hydrated (at least 2 quarts/day). Advance diet every week to more solid food as tolerated. Week 1: Introduce soft foods like oatmeal, mashed potatoes, soft cooked vegetables, pasta, scrambled eggs, and cottage cheese, etc. Week 2: Introduce more solid foods such as cheeses and fruit. Week 3: Introduce ground meats and tuna fish. Week 4 and beyond: Introduce solid meats (steak), chicken, fish, bread, crackers, rice, shrimp, lobster, and raw vegetables, etc. By week 5, most foods are unrestricted. However, some patients still experience some difficulty swallowing certain foods at this time. If this should happen, drink liquids to help the food pass and do not try this food again for 3 days. After the swelling around the surgical site subsides, swallowing will become easier. POINTS TO REMEMBER 1) ABSOLUTELY NO CARBONATED BEVERAGES OR STRAWS 2) AVOID GUM (this causes you to swallow air) 3) Blenderized diet for a minimum of 3 days. 4) NO BREAD, UNGROUND MEAT, CHICKEN OR FISH FOR AT LEAST 2 WEEKS. 5) Sit in a chair at the table when eating. Avoid eating in lounge chairs, sofas, in the car, or while walking around. This is when you should be concentrating well while eating. 6) You will feel well after the first week, and yet still have difficulty swallowing certain foods.BE CAREFUL NOT TO ADVANCE YOUR DIET TOO QUICKLY. Please call the office at to speak with a nurse if you have any questions or concerns. To schedule a follow up appointment please call . documented in this encounter Medications at Time of Discharge [...] bedtime. 9 documented as of this encounter Ordered Prescriptions Prescription Sig Dispense Quantity Refills Last Filled Start Date End Date ondansetron (ZOFRAN-ODT) 4 mg disintegrating tablet Take 1 Tab by mouth every 8 hours as needed for Nausea. 12 Tab 5 12/03/2017 9 ibuprofen (MOTRIN) 600 mg tablet Take 1 Tab by mouth every 6 hours as needed for Pain. 12/03/2017 9 oxyCODONE (ROXICODONE) 5 mg/5 mL solution Take 5 mL by mouth every 4 hours as needed for Pain. Daily Max: 30 mg 100 mL 12/03/2017 9 documented in this encounter Discharge Disposition Disposition Code Departure Means Destination Home or Self Care documented in this encounter Progress Notes * Anitra Guaman RN - 11/26/2017 1621 EDT Sona Gupta has been instructed as follows regarding medication administration for the day of the scheduled procedure. Date of Surgery: 12/03/2017 Instructions for Taking Medications Day of Surgery Medication Sig Last Dose Hold DOS Take DOS acetaminophen (TYLENOL) 500 mg tablet Take 500 mg by mouth every 6 hours as needed for Pain. Yes prn allopurinol (ZYLOPRIM) 100 mg tablet Take 100 mg by mouth daily. Yes aspirin chewable 81 mg tablet Take 81 mg by mouth daily. Yes brinzolamide (AZOPT) 1 % ophthalmic suspension Place 1 Drop into both eyes 2 times daily. Yes cholecalciferol, Vitamin D3, 1,000 unit tablet Take 1,000 Units by mouth daily. 11/26/2017 LATANOPROST (XALATAN OPHTHALMIC) Apply to eye. Yes lisinopril (ZESTRIL) 40 mg tablet Take 40 mg by mouth daily. 12/01/2017 metoprolol (LOPRESSOR) 25 mg tablet Take 25 mg by mouth 2 times daily. Yes ranitidine (ZANTAC) 150 mg tablet Take 150 mg by mouth 2 times daily. Yes rosuvastatin (CRESTOR) 10 mg tablet Take 10 mg by mouth daily. hs spironolactone (ALDACTONE) 25 mg tablet Take 12.5 mg by mouth daily. x timolol (TIMOPTIC) 0.25 % ophthalmic solution Place 1 Drop into both eyes 2 times daily. Yes torsemide (DEMADEX) 20 mg tablet Take 20 mg by mouth daily. Yes traZODone (DESYREL) 150 mg tablet Take 100 mg by mouth at bedtime. x Patient understands not to take any NSAIDS, vitamins, or supplements 7 days prior to surgery. documented in this encounter H&P Notes * Refugio Son MD - 12/03/2017 0931 EDT DAY OF SURGERY H&P HPI/subjective: Pt is a 72yoF who presents today in preparation for lap Trung fundoplication for GERD. No changes in health or medications since last seen in clinic. No easy bleeding, bruising, or blood thinners. Past Medical History: Diagnosis Date ??? Arthritis ??? Cancer (HCC-CMS) ??? Cerebral aneurysm ??? 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 Heartburn ??? Hypertension ??? Sleep apnea Past Surgical History: Procedure Laterality Date ??? APPENDECTOMY ??? BREAST SURGERY ??? CARDIAC SURGERY ??? CAROTID ARTERY STENTING ??? HYSTERECTOMY ??? JOINT REPLACEMENT ??? TONSILLECTOMY No current facility-administered medications on file prior to encounter. Current Outpatient Prescriptions on File Prior to Encounter Medication Sig Dispense Refill ??? acetaminophen (TYLENOL) 500 mg tablet Take 500 mg by mouth every 6 hours as needed for Pain. ??? allopurinol (ZYLOPRIM) 100 mg tablet Take 100 mg by mouth daily. ??? aspirin chewable 81 mg tablet Take 81 mg by mouth daily. ??? brinzolamide (AZOPT) 1 % ophthalmic suspension Place 1 Drop into both eyes 2 times daily. ??? cholecalciferol, Vitamin D3, 1,000 unit tablet Take 1,000 Units by mouth daily. ??? LATANOPROST (XALATAN OPHTHALMIC) Apply to eye. ??? lisinopril (ZESTRIL) 40 mg tablet Take 40 mg by mouth daily. ??? metoprolol (LOPRESSOR) 25 mg tablet Take 25 mg by mouth 2 times daily. ??? ranitidine (ZANTAC) 150 mg tablet Take 150 mg by mouth 2 times daily. ??? rosuvastatin (CRESTOR) 10 mg tablet Take 10 mg by mouth at bedtime. ??? spironolactone (ALDACTONE) 25 mg tablet Take 12.5 mg by mouth daily. ??? timolol (TIMOPTIC) 0.25 % ophthalmic solution Place 1 Drop into both eyes 2 times daily. ??? torsemide (DEMADEX) 20 mg tablet Take 20 mg by mouth daily. ??? traZODone (DESYREL) 150 mg tablet Take 100 mg by mouth at bedtime. Allergies Allergen Reactions ??? Dilaudid [Hydromorphone] Itching ??? Hydrocodone Itching ??? Oxycodone Itching ??? Propine [Dipivefrin] Rash Eye drops Objective: BP (!) 150/80 (BP Cuff Location: Right arm, Patient Position: Supine) Temp 36.1 ??C (97 ??F) (Oral) Resp 16 Ht 152.4 cm (60) Wt 81.6 kg (180 lb) SpO2 96% BMI 35.15 kg/m2 Gen-resting comfortably in bed; NAD CV-RRR Resp-CTAB Assessment/Plan: Pt is a 72yoF who presents today in preparation for lap Trung fundoplication for GERD. -ready for OR -opioid and surgical consents signed and in chart -pre-op abx ordered: 2g ancef -surgical site marked: NA -all questions answered eRfugio Son MD 12/03/2017 9:32 Surgery Vascular Surgery Physician [phone] Cosigned by Alejandro Calloway MD at 12/19/2017 9:14 EDT documented in this encounter OR Notes * OR Surgeon - Alejandro Calloway MD - 12/03/2017 0000 EDT OPERATIVE REPORT SERVICE DATE: 12/03/2017 PREOPERATIVE DIAGNOSIS: Gastroesophageal reflux disease. POSTOPERATIVE DIAGNOSIS: Gastroesophageal reflux disease. PROCEDURE: Laparoscopic Trung fundoplication. SURGEON: Alejandro Calloway MD FACS TELECOM ASSISTANT: Refugio Son MD ANESTHESIA: General endotracheal and local. ESTIMATED BLOOD LOSS: Minimal. FLUIDS: 1300 mL of crystalloid. DRAINS: None. COMPLICATIONS: None. INDICATIONS: This is a 72-year-old woman who had GERD refractory to medical therapy and was offeredNissen fundoplication. FINDINGS: Moderate-sized hiatal hernia. A 360-degree wrap was performed over a 52-Faroese bougie dilator. No leak after testing with methylene blue. NARRATIVE: The patient was taken to the operating room, placed supine on the operating table, identified as Sona Beth I was present for the entire case. After induction of general anesthesia, theabdomen was prepped and draped in the usual sterile fashion. A 10 mm incision was then made in the left epigastrium. Veress needle was used to access the peritoneal cavity, which was insufflated to 14 mmHg using carbon dioxide. A 10 mm port was placed in this location followed by a 10 mm 3D laparoscope was used to examine the abdomen, which appeared normal. We placed an additional 4 ports in the upper abdomen for standard laparoscopic foregut surgery. Liver retractor was used to elevate the left lateral segment of the liver. There was a hiatal hernia that was seen. We divided the gastrosplenic ligament with the Harmonic scalpel up to the left cassandra of diaphragm. The gastrohepatic ligament was incised up to the right cassandra of the diaphragm. We the esophagus from the right and left cassandra. We also cut the phrenoesophageal ligament and encircled the esophagus posteriorly with a Mohawk drain. We retracted the esophagus and performed a mediastinal dissection of the esophagus to allow adequate length of the esophagus in the abdomen. An OG tube was then positioned at the GE junction, instilled with methylene blue and no injury was seen. The OG tube was removed. The diaphragmatic crura were then reapproximated posterior to the esophagus with multiple interrupted 0 Surgidac sutures using the Endostitch device. The fundus of thestomach was then brought posterior to the esophagus. The [place] drain was released. A 52-Faroese bougie dilator was passed through the esophagus into the stomach without incident. A 360-degree fundoplication was then performed with 3 stitches of 2-0 Surgidac sutures using the Endostitch device. Allstitches incorporated the esophagus to the right of midline. The bougie was removed and the wrap was then anchored in the posterolateral location of the esophagus on each side with 2-0 Surgidac suture. The wrap lay nicely without undue tension, twisting or angulation of the esophagus. The left upper quadrant was then irrigated with saline. The effluent was clear. The liver retractorwas removed, the pneumoperitoneum was released and the ports were removed. The fascia at each 10 mmport site was closed with a 0 Vicryl suture. Each wound was irrigated and infiltrated with local anesthesia and the skin at each site was then closed with a subcuticular stitch of 4-0 Monocryl. Steri-Strips and dressings were applied. Sponge and instrument counts were correct at the end of the case. The patient was awoken from anesthesia, extubated and taken to recovery room in stable condition. Unless otherwise noted, there were no complications, no blood loss, no cultures obtained, no specimens removed, and no drains retained. Alejandro Calloway MD FACS 07 50 AM / Alejandro Calloway MD FACS cn Confirmation: [id number] Dictation ID: [id number] cc:Refugio Calloway MD FACS Jannette Devi CHANNEL ACCOUNT MANAGER documented in this encounter Miscellaneous Notes * Anesthesia Post-Michael Bland - 12/03/2017 1651 EDT Anesthesia Post op Note Sona Gupta [id number] Anesthesia received: General; Vital Signs: Temp: 36.3 ??C (97.3 ??F), Heart Rate: 61 BPM, BP: (!) 161/74, Resp: 28, SpO2: 95 % Vital signs Stable: Yes Consciousness: Awake, Alert Patient's participation in evaluation:Able to participate Temperature Status: Normothermic, Actively warming Respiratory Status: Airway patent Supplemental O2: Nasal cannula Oxygen Saturation: Within patient's normal range Cardiovascular Status: Within patient's normal range Post-op Hydration: Adequate Nausea / Vomiting: None Pain Control: Adequate Current Pain Score: Numeric Pain Level (Scale 1-10): 2 Post-op Assessment: Tolerated procedure well, No evidence of recall, Patient satisfied with anesthesia Disposition: Home Complications: No apparent anesthetic complications Michael Neal MD 12/03/2017 16:51 * Brief Op Note - Refugio Son MD - 12/03/2017 1024 EDT BRIEF OP NOTE Preop dx: GERD Postop dx: same Procedure: lap Trung and cruroplasty Surgeon: Elli National Insurance Officer: Adelaida Anesth: GET Findings: Moderate hiatal hernia repaired with multiple interrupted sutures - 4 posterior and 1 anterior. Tiny rent in pleura clipped - no HD significance intraop. 360 degree wrap performed over 52Frbougie. Fascia at LUQ port site closed. Skin re-approximated with monocryl, steris, 2x2, tegaderm. EBL: minimal IVF: 1300cc crystalloid UOP: Not measured Specimen: None Cultures: None Foreign Material Retained: None Complications: None Dispo: To PACU in stable condition --> home after 3-6h post op Refugio Son MD 12/03/2017 10:24 Pager [phone] documented in this encounter Plan of Treatment Not on file documented as of this encounter Procedures Procedure Name Priority Date/Time Associated Diagnosis Comments ECG REPORT - SCANNED 12/08/2017 12:41 EDT ECG REPORT - SCANNED 12/08/2017 12:41 EDT ECG REPORT - SCANNED 12/03/2017 11:17 EDT EKG 12-LEAD STAT 12/03/2017 7:53 EDT TYPE AND SCREEN Routine 12/03/2017 7:32 EDT ECG REPORT - SCANNED 12/02/2017 8:45 EDT documented in this encounter Results * ECG REPORT - SCANNED (12/08/2017 12:41 EDT) 12/08/2017 12:4 1 EDT us Scan 2 Elder Counselor PROCEDURE/MINOR SURGICAL OR DERABLES Final Result * ECG REPORT - SCANNED (12/08/2017 12:41 EDT) 12/08/2017 12:4 1 EDT us Scan 2 Elder Counselor PROCEDURE/MINOR SURGICAL OR DERABLES Final Result * ECG REPORT - SCANNED (12/03/2017 11:17 EDT) 12/03/2017 11:1 7 EDT us Scan 2 Elder Counselor PROCEDURE/MINOR SURGICAL OR DERABLES Final Result * EKG 12-LEAD (12/03/2017 7:53 EDT) 12/03/2017 7:53 EDT Narrative [facility] EKG - 12/03/2017 11:10 EDT ? [facility] ? Test Date: ?2017-12-03 Pat Name: ? SONA ROOT ? Department: ?? PeriopMainC ? Room: ? ZB7123 Gender: ? Female ? Medical Fee Clerk: ?? [phone] : ?1945 ? Requested By: BRODY Villalobos Number: [id number] ?Reading : ?? TONIO BRAUN MD ? Measurements Intervals ?[place] ? Rate: ? 54 ? P: ?21 TN: ? 187 ?QRS: ?-2 QRSD: ? 77 ? T: ?45 QT: ? 450 ? QTc: ?426 ? Interpretive Statements SINUS BRADYCARDIA POSSIBLE INFERIOR MYOCARDIAL INFARCTION, OF INDETERMINATE AGE No previous ECG available for comparison I reviewed the tracing and have either agreed or edited the findings in this report. Electronically Signed On 12-03-2017 11:10:07 EDT by TONIO BRAUN MD. Procedure Note Tonio Braun MD - 12/03/2017 [facility] Test Date: 2017-12-03 Pat Name: [facility]PTA [id number] Gender: Female Medical Fee Clerk: [id number] : 1945 Requested By: BRODY LOVETT I Order Number: [id number] Reading MD: TONIO BRAUN MD Measurements Intervals [place] Rate: 54 P: 21 TN: 187 QRS: -2 QRSD: 77 T: 45 QT: 450 QTc: 426 Interpretive Statements SINUS BRADYCARDIA POSSIBLE INFERIOR MYOCARDIAL INFARCTION, OF INDETERMINATE AGE No previous ECG available for comparison I reviewed the tracing and have either agreed or edited the findings inthis report. Electronically Signed On 12-03-2017 11:10:07 EDT by TONIO DOYLE. us Papo Thorpe MD CARDIAC ECG ORDERABLES Fi nal Result Performing Organization Address City/[facility]/ZIP Co de Phone Number [facility] EKG * TYPE AND SCREEN (12/03/2017 7:32 EDT) ABO AB [facility] BLOOD BANK Rh Factor Negative [facility]LOOD [facility] Antibody Screen Negative [facility] BLOOD [facility] Specimen Expires: 12/06/2017 @ 23:59 [facility] BLOOD [facility] 12/03/2017 7:32 EDT us Alejandro Calloway MD BLOOD BANK TESTS Final Result Performing Organization Address City/[facility]/[place]UST Co de Phone Number [facility] BLOOD BANK [address] [place] [address] * ECG REPORT - SCANNED (12/02/2017 8:45 EDT) 12/02/2017 8:45 EDT us Scan 2 Elder Counselor PROCEDURE/MINOR SURGICAL OR DERABLES Final Result documented in this encounter Visit Diagnoses Diagnosis Functional dyspepsia- Primary Dyspepsia and other specified disorders of function of stomach Functional dyspepsia Dyspepsia and other specified disorders of function of stomach documented in this encounter Administered Medications Inactive Administered Medications - up to 3 most recent administrations Medication Order MAR Action Action Date Dose Rate Site aspirin chewable tablet 81 mg 81 mg, oral, DAILY, First dose on Fri12/03/17 at 0900, Until Discontinued, Routine, Pre-Op DOS Rx Approved Given 12/03/2017 8:22 EDT 81 mg atropine 0.1 mg/mL syringe 0.5 mg 0.5 mg, intravenous, PRN, Starting on Fri12/03/17 at 1239, Until Fri12/03/17 at 1923, Symptomatic HR < 50, Routine, Recovery (only) ceFAZolin (ANCEF) syringe 2 g 2 g, intravenous, Administer over 10 Minutes, PRE-OP ONCE, 1 dose, On Fri12/03/17 at 1000, Routine Given by Other 12/03/2017 10:40 EDT 2 g diphenhydrAMINE (BENADRYL) injection 12.5 mg 12.5 mg, intravenous, PRN, 1 dose, Starting on Fri12/03/17 at 1239, Until Fri12/03/17 at 1923, nausea, Routine, Recovery (only) fentaNYL citrate (PF) 50 mcg/mL injection 25-50 mcg 25-50 mcg, intravenous, EVERY 5 MIN PRN, Starting on Fri12/03/17 at 1239, Until Fri12/03/17 at 192, Pain, Routine, Recovery (only) heparin injection 5,000 Units 5,000 Units, subcutaneous, NOW X1, 1 dose, On Fri12/03/17 at 1045, Routine Given 12/03/2017 10:31 EDT 5,000 Units HYDROmorphone injection (DILAUDID) 0.5 mg/1 mL syringe 0.25-0.5 mg 0.25-0.5 mg, intravenous, EVERY 10 MINUTES PRN, Starting on Fri12/03/17 at 1239, Until Fri12/03/17 at 192, Pain, Routine, Recovery (only) lactated ringers (LR) infusion at 75 mL/hr, intravenous, CONTINUOUS, Starting on Fri12/03/17 at 1300, Until Fri12/03/17 at 192, Routine, Recovery (only) Rate Documented 12/03/2017 13:04 EDT 75 mL/hr lactated ringers (LR) infusion at 25 mL/hr, intravenous, CONTINUOUS, Starting on Fri12/03/17 at 0800, Until Fri12/03/17 at 192, Routine, Release New Bag 12/03/2017 7:34 EDT 25 mL/hr naloxone (NARCAN) injection 0.2 mg 0.2 mg, intravenous, PRN, Starting on Fri12/03/17 at 1239, Until Fri12/03/17 at 192, Opioid Reversal, Routine, Recovery (only) ondansetron (PF) (ZOFRAN) injection 4 mg 4 mg, intravenous, PRN, 1 dose, Starting on Fri12/03/17 at 1239, Until Fri12/03/17 at 1923, Nausea, Vomiting, Routine, Recovery (only) oxyCODONE (ROXICODONE) solution 5-10 mg 5-10 mg, oral, EVERY 4 HOURS PRN, 2 doses, Starting on Fri12/03/17 at 1239, Until Fri12/03/17 at 1923, Pain, Routine, Recovery (only) documented in this encounter Discontinued Medications Medication Sig Discontinue Reason Start Date End Da te acetaminophen (TYLENOL) 325 mg tablet Take 500 mg by mouth every 4 hours as needed for Pain. Patient Stopped Taking 11/26/2017 esomeprazole (NEXIUM) 40 mg capsule Take 40 mg by mouth every morning before breakfast. Alternate therapy 11/26/2017 ibuprofen (MOTRIN) 800 mg tablet Take 800 mg by mouth every 6 hours as needed for Pain. Patient Stopped Taking 11/26/2017 ranitidine (ZANTAC) 150 mg tablet Take 150 mg by mouth 2 times daily. 12/03/2017 documented as of this encounter Active and Recently Administered Medications Times are shown in EDT. Scheduled Medication Order 12/01/2017 12/02/2017 12/03/2017 aspirin chewable tablet 81 mg 81 mg, oral, DAILY, First dose on Fri12/03/17 at 0900, Until Discontinued, Routine, Pre-Op DOS Rx Approved 0822 (Given - Provid er: Alicia Núñez RN) ceFAZolin (ANCEF) syringe 2 g (COMPLETED) 2 g, intravenous, Administer over 10 Minutes, PRE-OP ONCE, 1 dose, On Fri12/03/17 at 1000, Routine 0938 (Canceled Entry - Provider: Alicia Núñez RN)1040 (Given by Other - Provider: Migdalia Byers RN - Comment: given by Lisa SÁNCHEZ) heparin injection 5,000 Units (COMPLETED) 5,000 Units, subcutaneous, NOW X1, 1 dose, On Fri12/03/17 at 1045, Routine 1031 (Given - Provid er: Migdalia Byers RN) Continuous Medication Order 12/01/2017 12/02/2017 12/03/2017 lactated ringers (LR) infusion at 75 mL/hr, intravenous, CONTINUOUS, Starting on Fri12/03/17 at 1300, Until Fri12/03/17 at 1923, Routine, Recovery (only) 1304 (Rate Documente d - Provider: Kacey Espitia RN) lactated ringers (LR) infusion at 25 mL/hr, intravenous, CONTINUOUS, Starting on Fri12/03/17 at 0800, Until Fri12/03/17 at 1923, Routine, Release 0734 (New Bag - Prov ider: Carey Morrison RN)1304 (Completed - Provider: Kacey Espitia RN) PRN Medication Order 12/01/2017 12/02/2017 12/03/2017 atropine 0.1 mg/mL syringe 0.5 mg 0.5 mg, intravenous, PRN, Starting on Fri12/03/17 at 1239, Until Fri12/03/17 at 192, Symptomatic HR < 50, Routine, Recovery (only) diphenhydrAMINE (BENADRYL) injection 12.5 mg 12.5 mg, intravenous, PRN, 1 dose, Starting on Fri12/03/17 at 1239, Until Fri12/03/17 at 192, nausea, Routine, Recovery (only) fentaNYL citrate (PF) 50 mcg/mL injection 25-50 mcg 25-50 mcg, intravenous, EVERY 5 MIN PRN, Starting on Fri12/03/17 at 1239, Until Fri12/03/17 at 192, Pain, Routine, Recovery (only) HYDROmorphone injection (DILAUDID) 0.5 mg/1 mL syringe 0.25-0.5 mg 0.25-0.5 mg, intravenous, EVERY 10 MINUTES PRN, Starting on Fri12/03/17 at 1239, Until Fri12/03/17 at 192, Pain, Routine, Recovery (only) naloxone (NARCAN) injection 0.2 mg 0.2 mg, intravenous, PRN, Starting on Fri12/03/17 at 1239, Until Fri12/03/17 at 192, Opioid Reversal, Routine, Recovery (only) ondansetron (PF) (ZOFRAN) injection 4 mg 4 mg, intravenous, PRN, 1 dose, Starting on Fri12/03/17 at 1239, Until Fri12/03/17 at 192, Nausea, Vomiting, Routine, Recovery (only) oxyCODONE (ROXICODONE) solution 5-10 mg 5-10 mg, oral, EVERY 4 HOURS PRN, 2 doses, Starting on Fri12/03/17 at 1239, Until Fri12/03/17 at 1923, Pain, Routine, Recovery (only) documented in this encounter Orders Medications Ordered That Desean ht Not Have Been Administered Count Last Ordered Date First Ordered Date atropine 0.1 mg/mL syringe 0.5 mg 1 018 diphenhydrAMINE (BENADRYL) i njection 12.5 mg 1 12/03/2017 fentaNYL citrate (PF) 50 mcg /mL injection 25-50 mcg 1 12/03/2017 HYDROmorphone injection (DIL AUDID) 0.5 mg/1 mL syringe 0.25-0.5 mg 1 12/03/2017 naloxone (NARCAN) injection 0.2 mg 1 2017 ondansetron (PF) (ZOFRAN) injection 4 mg 1 12/03/2017 oxyCODONE (ROXICODONE) solution 5-10 mg 1 0 12/03/2017 Admission Count Last Ordered Date First Orde red Date STATUS: OUTPATIENT SURGICAL OP BED/SERVICES 1 12/03/2017 Transfer Count Last Ordered Date First Orde red Date NOTIFY PPS PACU PATIENT DISCHARGE 1 018 NOTIFY PPS PATIENT ARRIVAL IN PACU 1 2017 Discharge Count Last Ordered Date First Orde red Date DISCHARGE PATIENT 1 12/03/2017 documented in this encounter Care Teams Desizing Machine Operator Relationship Specialty Start Date End Date Jannette Perales NP [address] [place] [address] PCP - General 11/13/17 documented as of this encounter
--- OUTSIDE RECORDS SUMMARY | 2024-07-09 00:18 | XMS_ITS | Encounter Summary ---
Author Organization [facility] Address [facility] [place] [address] Care Team Providers Care Ophthalmic Nurse Name Role Phone Jannette Perales DANE Primary Care Provider [phone] Reason for Visit * Reason Onset Date Comments Medication Refill 09/17/2022 Latanoprost Encounter Details Date Type Department Care Team (Late st Contact Info) Description 09/17/2022 Refill [place] [phone] Augustine Regan MD [facility] [place] [address] Pigmentary glaucoma of both eyes, moderate stage Social History Tobacco Use Types Packs/Day Years Used Date Smoking Tobacco: Never Smokeless Tobacco: Never Alcohol Use Standard Drinks/Week Comments Not Currently 7 (1 standard drink = 0.6 oz pur e alcohol) Sex and Gender Information Value Date Recorded Sex Assigned at Not on file Gender Identity Not on file Sexual Orientation Not on file documented as of this encounter Plan of Treatment Upcoming Encounters Date Type Department Care Team (Late st Contact Info) Description 11/19/2024 9:45 AM EDT Office Visit [place] [phone] Augustine Regan MD [facility] [place] [place] [address] documented as of this encounter Visit Diagnoses Diagnosis Pigmentary glaucoma of both eyes, moderate stage Pigmentary open-angle glaucoma documented in this encounter Care Teams Ophthalmic Nurse Relationship Specialty Start Date End Date Jannette Perales APRN PCP - General General Internal Medicine 08/18/17 documented as of this encounter
--- OUTSIDE RECORDS SUMMARY | 2024-07-09 00:18 | XMS_ITS | Encounter Summary ---
Author Organization [facility] Address [facility] [place] [address] Care Team Providers Care Before School Name Role Phone Jannette Perales DANE Primary Care Provider [phone] Reason for Visit * Reason Comments Medication Refill Encounter Details Date Type Department Care Team (Late Contact Info) Description 02/06/2023 [place] [phone] [facility] [place] [address] Pigmentary glaucoma of both eyes, moderate stage [...] 9:45 AM EDT Office [place] [phone] [facility] [place] [address] documented as of this encounter Visit Diagnoses Diagnosis Pigmentary glaucoma of both eyes, moderate stage Pigmentary open-angle glaucoma documented in this encounter Care Teams Before School Relationship Specialty Start Date End Date Jannette Perales APRN PCP - General General Internal Medicine 08/18/17 documented as of this encounter
--- OUTSIDE RECORDS SUMMARY | 2024-07-09 00:18 | XMS_ITS | Encounter Summary ---
Author Organization [facility] [place] [address] Care Team Providers Care Lumber Stacker Name Role Phone Jannette Perales APRN Primary Care Provider [phone] Reason for Visit * Reason Comments Pigmentary Glaucoma Encounter Details Date Type Department Care Team (Late st Contact Info) Description 04/09/2021 2:45 PM EDT Office [place] [address] Augustine Regan MD [facility] [place] [place] [address] Pigmentary glaucoma of both eyes, moderate stage [...] as of this encounter Progress Notes * Augustine Regan MD - 04/09/2021 2:45 PM EDT Pigmentary glaucoma OU: IOP doing well OCT today - stable PCIOL OU: Stable, VA doing very well OU Plan: Continue current meds: Azopt both eyes 2 times daily, Timolol gel both eyes daily, Latanoprost both eyes nightly Return to clinic: 6 months Upon return: EPF, IOP, no dilation, HVF documented in this encounter Plan of Treatment Upcoming Encounters Date Type Department Care Team (Late st Contact Info) Description 11/19/2024 9:45 AM EDT Office Visit [place] [address] Augustine Regan MD [facility] [place] [place] [address] documented as of this encounter Procedures Procedure Name Priority Date/Time Associated Diagnosis Comments OCT OPTIC NERVE - OU - BOTH EYES Routine 04/09/2021 3:17 PM EDT Pigmentary glaucoma of both eyes, moderate stage documented in this encounter Results * Oct Optic Nerve - OU - Both Eyes (04/09/2021 3:17 PM EDT) Anatomical Region Laterality Modality Other Narrative 04/09/2021 3:17 PM EDT Right Eye Quality was good. Progression has been stable. Left Eye Quality was good. Progression has been stable. Notes Optic nerve report G = 60 OD G = 57 OS outside normal limits OU Interpretation: stable scans from 07/2017 Augustine Regan MD OPHTHALMOLOGY SERVIC ES ORDERABLES documented in this encounter Visit Diagnoses Diagnosis Pigmentary glaucoma of both eyes, moderate stage Pigmentary open-angle glaucoma documented in this encounter Care Teams Lumber Stacker Relationship Specialty Start Date End Date Jannette Perales APRN PCP - General General Internal Medicine 08/18/17 documented as of this encounter
--- OUTSIDE RECORDS SUMMARY | 2024-07-09 00:18 | XMS_ITS | Encounter Summary ---
Author Organization [facility] Address [address] [place] [address] Care Team Providers Care Letterer Name Role Phone Kaycee Cannon MD Primary Care Provid er Unavailable Jannette Perales NP Primary Care Provider [phone] Encounter Details Date Type Department Care Team (Late st Contact Info) Description 06/04/2017 Historical Results Only [facility] - [address] [place] [address] [place], [place] [id number] Jannette Perales NP [address] [place] [address] Social History Tobacco Use Types Packs/Day Years Used Date Smoking Tobacco: Never Alcohol Use Standard Drinks/Week Comments [...] Comments VIT D, 25-HYDROXY - [facility] Routine 06/04/2017 8:55 EST LIPID PROFILE (INCLUDES CHOLESTEROL, TRIGLYCERIDES, HDL, LDL) Routine 06/04/2017 8:55 EST COMPREHENSIVE METABOLIC PANEL (CMP) Routine 06/04/2017 8:55 EST documented in this encounter Results * LIPID PROFILE (INCLUDES CHOLESTEROL, TRIGLYCERIDES, HDL, LDL) (06/04/2017 8:55 EST) Triglyceride 275 <150 mg/dL 06/04/2017 10:53 [facility] Comment: Adult: Normal: ?<150 mg/dl ? Borderline High: 150-199 mg/dl ? High: ?200-499 mg/dl ? Very High: >cq=106 Cholesterol 162 <200 mg/dL 06/04/2017 10:53 [facility] Comment: Acceptable: ??<200 Borderline: ??200-239 High: ?> or = 240 Chol/HDL Ratio 3.6 0 - 4.5 06/04/2017 10:53 [facility] Comment: DESIRABLE RATIO IS LESS THAN 4.1 PATIENTS ARE CONSIDERED AT RISK: WOMEN RATIO >5 MEN RATIO >6 FASTING? - [facility] Yes 8:55 [facility] HDL 45 40 - 60 mg/dL 06/04/2017 10:53 [facility] Comment: ?? Reference Range Low: ? < 40 ??mg/dL Normal: ??40-60 mg/dL High: ?>= 60 mg/dL LDL CHOLESTEROL - [facility] 62 60 - 100 mg/dL 06/04/2017 10:53 [facility] Non HDL Cholesterol 117 mg/dl 06/04/2017 10:53 [facility] Comment: Desirable: ?Less than 130 Borderline High: ??130-159 High: ? 160-189 Very High: ?Greater than or equal to 190 06/04/2017 8:55 EST 06/04/2017 8:55 EST Narrative [facility] - 06/04/2017 10:54 EST Does PT Have a Latex Allergy? NO us Jannette Perales NP CHEMISTRY & BLOOD GAS ORDERABLES Final Result [facility] * COMPREHENSIVE METABOLIC PANEL (CMP) (06/04/2017 8:55 EST) Albumin % 4.2 3.4 - 4.9 g/dL 06/04/2017 10:53 [facility] ALKALINE PHOSPHATASE - [facility] 48 38 - 126 U/L 06/04/2017 10:53 [facility] BILIRUBIN TOTAL 0.3 0.2 - 1.3 mg/dL 06/04/2017 10:53 [facility] BUN - [facility] 22 10 - 26 mg/dL 06/04/2017 10:53 [facility] CALCIUM - [facility] 9.5 8.5 - 10.5 mg/dL 06/04/2017 10:53 [facility] Chloride 104 96 - 110 mmol/L 06/04/2017 10:53 [facility] CO2 Total 27 22 - 32 mEq/L 06/04/2017 10:53 [facility] CREATININE 1.01 0.52 - 1.04 mg/dL 06/04/2017 10:53 [facility] eGFR 54 06/04/2017 10:53 [facility] Comment: Stage 3: Moderate renal impairment is defined as GFR 30-59 Multiply result by 1.210 for patients. eGFR calculated using the IDMS-traceable MDRD Study Equation. ??(effective 05/30/2014) Anion Gap 8 5 - 15 06/04/2017 10:53 [facility] GLUCOSE - [facility] 98 70 - 100 mg/dL 06/04/2017 10:54 [facility] Potassium 4.3 3.5 - 5.0 mEq/L 06/04/2017 10:53 [facility] Sodium 139 136 - 145 mEq/L 06/04/2017 10:53 [facility] TOTAL PROTEIN - [facility] 6.9 6.2 - 8.2 gm/dL 06/04/2017 10:53 [facility] SGOT/AST - [facility] 22 14 - 36 U/L 06/04/2017 10:53 [facility] SGPT/ALT - [facility] 25 9 - 52 U/L 7 10:53 [facility] 06/04/2017 8:55 EST 06/04/2017 8:55 EST Narrative [facility] - 06/04/2017 10:54 EST Does PT Have a Latex Allergy? NO us Jannette Perales RADIO SURVEY WORKER CHEMISTRY & BLOOD GAS ORDERABLES Final Result Performing Organization Address City/[facility]/ZIP Co de Phone Number [facility] * (ABNORMAL) VIT D, 25-HYDROXY - [facility] (06/04/2017 8:55 EST) VIT D, 25 HYDROXY - [facility] 29.3(L) 30 - 100 ng/ml 06/04/2017 11:00 EST [facility] Comment: ? 25-Hydroxy D Total (D2+D3) ?Expected Values Deficient: ?<20 ng/ml Insufficient: ? 20- <30 ng/ml Sufficient: ? 30-100 ng/ml Potential intoxication: >100 ng/ml 06/04/2017 8:55 EST 06/04/2017 8:55 EST Narrative [facility] - 06/04/2017 11:00 EST Does PT Have a Latex Allergy? NO us Jannette Perales RADIO SURVEY WORKER CHEMISTRY & BLOOD GAS ORDERABLES Final Result Performing Organization Address City/[facility] Co de Phone Number [facility] documented in this encounter Visit Diagnoses Not on filedocumented in this encounter Care Teams Letterer Relationship Specialty Start Date End Date Kaycee Cannon MD [address] [place] [phone] PCP - General 07/24/16 11/12/17 Jannette Perales NP [address] [place] [phone] PCP - General 11/13/17 documented as of this encounter
--- OUTSIDE RECORDS SUMMARY | 2024-07-09 00:18 | XMS_ITS | Encounter Summary ---
Author Organization Replaced By [facility] [place] [address] Care Team Providers Care Horseback Riding Instructor Name Role Phone Jannette Perales DANE Primary Care Provider [phone] Reason for Visit * Reason Comments Pigmentary Glaucoma Encounter Details Date Type Department Care Team (Late st Contact Info) Description 05/23/2023 9:45 AM EDT Office [place] [address] Augustine Regan MD [facility] [place] [address] Pigmentary glaucoma of both eyes, moderate stage; Pseudophakia of both eyes Social History Tobacco Use Types Packs/Day Years [...] Progress Notes * Augustine Regan MD - 05/23/2023 9:45 AM EDT Pigmentary glaucoma OU: IOP doing well HVF stable Plan: Continue current meds in both eyes: Azopt 2x/day Timolol 1x/day Latanoprost at night Return to clinic: 6 months Upon return: EPF, IOP documented in this encounter Plan of Treatment Upcoming Encounters Date Type Department Care Team (Late st Contact Info) Description 11/19/2024 9:45 AM EDT Office Visit Ophthalmology at [facility] [place] [address] Augustine Regan MD [facility] [place] [address] documented as of this encounter Procedures Procedure Name Priority Date/Time Associated Diagnosis Comments OCT OPTIC NERVE - OU - BOTH EYES Routine 05/23/2023 11:15 AM EDT Pigmentary glaucoma of both eyes, moderate stage AUTOMATED VISUAL FIELD - EXTENDED - OU- BOTH EYES Routine 05/23/2023 11:14 AM EDT Pigmentary glaucoma of both eyes, moderate stage documented in this encounter Results * Oct Optic Nerve - OU - Both Eyes (05/23/2023 11:15 AM EDT) Anatomical Region Laterality Modality Other Narrative 05/23/2023 11:15 AM EDT Right Eye Quality was good. Progression has been stable. Superior thickness was showing abnormal thinning. Nasal thickness was showing abnormal thinning. Inferior thickness was showing abnormal thinning. Left Eye Quality was good. Progression has been stable. Temporal thickness was showing abnormal thinning. Superior thickness was showing abnormal thinning. Nasal thickness was showing abnormal thinning. Inferior thickness was showing abnormal thinning. Notes Optic nerve report G = 57 OD G = 52 OS outside normal limits OU Interpretation: stable Augustine Regan MD OPHTHALMOLOGY SERVIC ES ORDERABLES * Automated Visual Field - Extended - OU - Both Eyes (05/23/2023 11:14 AM EDT) Anatomical Region Laterality Modality Other Narrative 05/23/2023 11:14 AM EDT Right Eye Threshold was 24-2. Strategy was KENNY. Reliability was good. Progression has been stable. Foveal threshold was reduced. Findings include inferior nasal step defect, superior altitudinal defect, inferior paracentral defect. Left Eye Threshold was 24-2. Strategy was KENNY. Reliability was good. Progression has been stable. Foveal threshold was reduced. Findings include inferior arcuate defect, superior nasal step defect, superior paracentral defect. Notes Stable test since 2010 OU Augustine Regan MD OPHTHALMOLOGY SERVIC ES ORDERABLES documented in this encounter Visit Diagnoses Diagnosis Pigmentary glaucoma of both eyes, moderate stage Pigmentary open-angle glaucoma Pseudophakia of both eyes Lens replaced by other means documented in this encounter Care Teams Horseback Riding Instructor Relationship Specialty Start Date End Date Jannette Perales APRN PCP - General General Internal Medicine 08/18/17 documented as of this encounter
--- OUTSIDE RECORDS SUMMARY | 2024-07-09 00:18 | XMS_ITS | Encounter Summary ---
Author Organization [facility] Address [facility] [place] [address] Care Team Providers Care Package Liner Name Role Phone Jannette Perales DANE Primary Care Provider [phone] Reason for Visit * Reason Comments Medication Refill Encounter Details Date Type Department Care Team (Late st Contact Info) Description 05/08/2022 [place] [phone] Augustine Regan MD [facility] [place] [address] Pigmentary glaucoma of both eyes, moderate stage [...] 9:45 AM EDT Office [place] [phone] Augustine Regan MD [facility] [place] [address] documented as of this encounter Visit Diagnoses Diagnosis Pigmentary glaucoma of both eyes, moderate stage Pigmentary open-angle glaucoma documented in this encounter Care Teams Package Liner Relationship Specialty Start Date End Date Jannette Perales APRN PCP - General General Internal Medicine 08/18/17 documented as of this encounter
--- OUTSIDE RECORDS SUMMARY | 2024-07-09 00:18 | XMS_ITS | Clinical Summary ---
Author Organization [facility] [place] [address] Care Team Providers Care Supervisor Sewer System Name Role Phone Jannette Perales DANE Primary Care Provider [phone] Allergies Active Allergy Reactions Criticality Noted Date Comments Dipivefrin Hcl Rash Hydrocodone Hives Medium Hydromorphone Hives Medium Oxycodone Hcl Hives Medium Pt. Tolerates if taken with benadryl Dipivefrin Itching,Rash 12/10/2012 Medications Medication Sig Dispensed Refills Start Date End Date Status torsemide (DEMADEX) 20 mg tablet Take 20 mg by mouth daily. Active acetaminophen (Tylenol) 500 mg Tablet Take 1,000 mg by mouth every 8 hours as needed. 11/19/2010 Active traZODone (DESYREL) 50 mg tablet Take 50 mg by mouth nightly. Active diphenhydrAMINE (BENADRYL) 25 mg tablet Take 25 mg by mouth every 6 hours as needed. Active allopurinol (ZYLOPRIM) 100 mg Tablet Take 100 mg by mouth daily. Active spironolactone (ALDACTONE) 25 mg TabletIndications:T. TAKING 12.5 ,MG Take 25 mg by mouth daily. Indications: T. TAKING 12.5 ,MG Active cholecalciferol, Vitamin D3, 1,000 unit Capsule Take by mouth. Active lisinopril (PRINIVIL;ZESTRIL) 40 mg Tablet Take 20 mg by mouth daily. Active latanoprost (Xalatan) 0.005 % DropsIndications:Pigme ntary glaucoma of both eyes, moderate stage Place 1 drop into both eyes nightly. 2.5 mL 11 04/09/2024 Active timoloL (Timoptic) 0.5 % DropsIndications:Pigme ntary glaucoma of both eyes, moderate stage Place 1 drop into both eyes daily. 10 mL 5 06/01/2024 Active brinzolamide (Azopt) 1 % Drops, SuspensionIndications: Pigmentary glaucoma of both eyes, moderate stage Place 1 drop into both eyes 2 times daily. 10 mL 5 06/01/2024 Active Active Problems Problem Noted Date Diagnosed Date 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 Assessment & Plan (08/18/2017 9:25 AM EST): Assessment: No progressive glaucoma damage on current medical therapy Plan: Continue present meds: * Azopt both eyes 2 times daily * Timolol gel both eyes daily * Latanoprost both eyes nightly Follow-up in 6 more months with repeat [facility] Coherence Tomography - see utility aircrewman next visit then back to new glaucoma provider once we have one on board Assessment & Plan (08/22/2016 1:55 PM EST): Assessment: No progressive glaucoma damage on current medical therapy Plan: Continue present meds -Azopt BID OU -Timolol gel QAM OU -Latanoprost QHS OU Follow-up in 6 more months with repeat [facility] Optical Coherence Tomography Assessment & Plan (01/18/2016 4:23 PM EDT): Assessment: Pigmentary Glaucoma - IOP and testing stable Plan: Continue present medications Follow up in 6 mos HVF/OCT Assessment & Plan (06/16/2015 11:09 AM EST): Assessment: No progressive damage on current medical therapy Plan: Continue present meds Follow-up in 6 more months with repeat [facility] Optical Coherence Tomography Obstructive sleep apnea (adult) (pediatric) 01/26 Overview (04/26/2012): 10/25/10 AHI 22 Pseudophakia of both eyes 01/16/2011 ASCVD (arteriosclerotic cardiovascular disease) 11/19/2010 Overview (04/26/2012): Cath -07 showed 65% mid LAD, 40% prox LCx, mild diffuse, 30% prox RCA and 85% mid RCA (s/p 3.5x18 cypher); LVEF 65%. - also happened pre-surgery chest pains and positive stress test ([facility], [facility]) S/P coronary artery stent placement 11/19/2010 HTN (hypertension) 11/19/2010 Acute spont subarachnoid int racranial hemorrhage d/t cerebral aneurysm 11/19/2010 S/P cerebral aneurysm repair 11/19/2010 Hypercholesteremia 11/19/2010 GERD (gastroesophageal reflux disease) 1 Breast cancer, left breast 11/19/2010 S/P left mastectomy 11/19/2010 S/P tonsillectomy 11/19/2010 S/P hysterectomy 11/19/2010 S/P rotator cuff surgery 11/19/2010 Overview (04/26/2012): Bilateral repairs Status post hip replacement 11/13/2010 Overview (05/04/2011): Dx replacement utility run on deactivated IMO Dx [id number] 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 female With pig glauc ou, suspect age 38 and began elevation of iop at 45. Sukhi. Discs=have gone from init 0.7 to now 0.8 ou out inf temp ou; VFs=in 89 w sup bjer os and nl od have slowly prog to now=od= inf step and os = bilat steps. Oct 11/04=53/45. Tmax 23/25. IOPstatus=9-12 ou on MEDS= chanelle, xal, az. ADR= propine. TARGET<~14 ou. Gonio initial= +5 band 360 ou and full tm thickness ou. Surg= pi ou on . Ce ou on 1999, dgc. Alt ou on 08 ou due to increased vf loss. VA= 20 ou, was -3.50 my ou. Init =3 kspin that may have decreased over the years. TIDs=0. ie thick brown irides that never allowed visualization! AP length 26.1/26.7. Course: up to 1999 req 3 meds to keep iop below 20 ou. Then iop lowered for awhile after ce ou. Gen subarach heme in 88. Dil disc photos ? Gonio, ck spindles. S/P cataract extraction 11/19/201012/28 Encounters Date Type Department Care Team Description 05/31/2024 [place] [address] Augustine Regan MD Pigmentary glaucoma of both eyes, moderate stage 05/21/2024 9:45 AM EDT Office [place] [address] Augustine Regan MD Pigmentary glaucoma of both eyes, moderate stage; Pseudophakia of both eyes 05/21/2024 Travel from Last 3 Months Immunizations Name Administration Dates Next Due Influenza Vaccine, Whole 04/27/2010,07/28/2005 Pneumococcal 23-Valent Polysaccharide (Pneumovax 23) 09/05/2006 Family History Medical History Relation Comments Heart Disease Brother Retinal Detachment Brother Diabetes Mother Glaucoma Mother Hypertension Mother Cancer Sister Cataracts Sister Glaucoma Sister Heart Disease Sister Amblyopia Neg Hx Blindness Neg Hx Macular Degeneration Neg Hx Strabismus Neg Hx Stroke Neg Hx Thyroid Disease Neg Hx Relation Status Comments Brother Mother Sister Alive Social History Tobacco Use Types Packs/Day Years Used Date Smoking Tobacco: Never Smokeless Tobacco: Never Alcohol Use Standard Drinks/Week Comments Not Currently 7 (1 standard drink = 0.6 oz pur e alcohol) Sex and Gender Information Value Date Recorded Sex Assigned at Not on file Gender Identity Not on file Sexual Orientation Not on file Last Filed Vital Signs Vital Sign Reading Time Taken Comments Blood Pressure 176/84 09/23/2013 10:02 AM EST Pulse 53 09/23/2013 10:02 AM EST Temperature - - Respiratory Rate 16 09/23/2013 10:02 AM EST Oxygen Saturation 98% 09/23/2013 10:02 AM EST Inhaled Oxygen Concentration - - Weight 74.8 kg (165 lb) 09/23/2013 10:02 AM EST Height 152.4 cm (5') 09/23/2013 10:02 AM EST Body Mass Index 32.22 09/23/2013 10:02 AM EST Plan of Treatment Upcoming Encounters Date Type Department Care Team (Late st Contact Info) Description 11/19/2024 9:45 AM EDT Office [place] [address] Augustine Regan MD [facility] [place] [address] Health Maintenance Due Date Last Done Comments Hepatitis C Screening 1963 Tetanus/Diphtheria/Pertussis Vaccines (1 - Tdap) 1963 Zoster vaccine (1 of 2) 1994 Bone Density Scan 2009 Pneumoccocal Vaccine: 65+ (2 of 2 - PCV) 2009 09/05/2006 RSV Vaccine (1 - 1-dose 75+ series) 2019 Covid-19 Vaccine (2 - season) 2024 Influenza (Flu) vaccine (1 o f 1 - Influenza standard series) 03/28/2024 04/27/2010, 07/28/2005 Procedures Procedure Name Priority Date/Time Associated Diagnosis Comments OCT OPTIC NERVE - OU - BOTH EYES Routine 05/21/2024 11:47 AM EDT Pigmentary glaucoma of both eyes, moderate stage AUTOMATED VISUAL FIELD - EXTENDED - OU- BOTH EYES Routine 05/21/2024 11:47 AM EDT Pigmentary glaucoma of both eyes, moderate stage from Last 3 Months Results * Oct Optic Nerve - OU - Both Eyes (05/21/2024 11:47 AM EDT) Anatomical Region Laterality Modality Other Narrative 05/21/2024 11:47 AM EDT Right Eye Quality was good. Progression has been stable. Left Eye Quality was good. Progression has been stable. Notes Right eye: G = 58 Outside normal limits Left eye: G = 53 Outside normal limits Interpretation: stable Augustine Regan MD OPHTHALMOLOGY SERVIC ES ORDERABLES * Automated Visual Field - Extended - OU - Both Eyes (05/21/2024 11:47 AM EDT) Anatomical Region Laterality Modality Other Narrative 05/21/2024 11:47 AM EDT Right Eye Threshold was 24-2. Strategy was KENNY. Reliability was good. Progression has been stable. Foveal threshold was reduced. Left Eye Threshold was 24-2. Strategy was KENNY. Reliability was good. Progression has been stable. Foveal threshold was reduced. Notes Indication: Pigmentary Reliability: Good OD; Good OS Outside normal limits OD Outside normal limits OS VFI OD: 60% VFI OS: 56% Right eye MD: -13.02 dB PSD: 10.40 dB Left eye MD: -15.95 dB PSD: 12.09 dB Progression: stable Augustine Regan MD OPHTHALMOLOGY SERVIC ES ORDERABLES from Last 3 Months Advance Directives Documents on File Type Date Recorded Patient Television Camera Operator Expl anation Advance Directives and Livin g Will 09/26/2010 8:25 AM Care Teams Supervisor Sewer System Relationship Specialty Start Date End Date Jannette Perales APRN PCP - General General Internal Medicine 08/18/17
--- OUTSIDE RECORDS SUMMARY | 2024-07-09 00:18 | XMS_ITS | Encounter Summary ---
Author Organization [facility] Address [address] [place] [address] Care Team Providers Care Electronics Inspector Name Role Phone Kaycee Cannon MD Primary Care Provid er Unavailable Jannette Perales NP Primary Care Provider [phone] Encounter Details Date Type Department Care Team (Late st Contact Info) Description 01/02/2017 Historical Results Only [facility] - [facility] Lab - Main [place] [address] [place] [address] [phone] Kaycee Cannon MD [address] [place] [address] [address] [place] [address] Social History Tobacco Use Types Packs/Day Years [...] Procedure Name Priority Date/Time Associated Diagnosis Comments HEMOGLOBIN A1C Routine 01/02/2017 8:54 EDT LIPID PROFILE (INCLUDES CHOLESTEROL, TRIGLYCERIDES, HDL, LDL) Routine 01/02/2017 8:54 EDT documented in this encounter Results * (ABNORMAL) LIPID PROFILE (INCLUDES CHOLESTEROL, TRIGLYCERIDES, HDL, LDL) (01/02/2017 8:54 EDT) Triglyceride 329(H) 35 - 150 mg/dL 01/02/2017 10:09 EDT [facility] Cholesterol 162 120 - 200 mg/dL 01/02/2017 10:09 EDT [facility] Chol/HDL Ratio 4.1 0 - 4.5 [facility]/02/2017 [facility]: DESIRABLE RATIO IS LESS THAN 4.1 PATIENTS ARE CONSIDERED AT RISK: WOMEN RATIO >5 MEN RATIO >6 FASTING? - [facility] Yes 7 8:54 EDT [facility] HDL 39(L) 40 - 60 mg/dL 01/02/2017 10:09 [facility] LDL CHOLESTEROL - [facility] 57(L) 60 - 100 mg/dL 01/02/2017 10:09 T [facility] Non HDL Cholesterol 123 mg/dl 01/02/2017 10:09 [facility] Comment: Desirable: ?Less than 130 Borderline High: ??130-159 High: ? 160-189 Very High: ?Greater than or equal to 190 01/02/2017 8:54 EDT 01/02/2017 8:54 EDT Narrative [facility] - 01/02/2017 10:09 EDT Does PT Have a Latex Allergy? NO us Kaycee Cannon MD CHEMISTRY & BLOOD GA S ORDERABLES Final Result [facility] * HEMOGLOBIN A1C (01/02/2017 8:54 EDT) Hemoglobin A1c 6.0 4.0 - 6.0 % 01/02/2017 12:34 EDT [facility] Est Avg Glucose 126 mg/dL 7 12:34 EDT [facility] 01/02/2017 8:54 EDT 01/02/2017 8:54 EDT Narrative [facility] - 01/02/2017 12:34 EDT Does PT Have a Latex Allergy? NO us Kaycee Cannon MD CHEMISTRY & BLOOD GA S ORDERABLES Final Result [facility] documented in this encounter Visit Diagnoses Not on filedocumented in this encounter Care Teams Electronics Inspector Relationship Specialty Start Date End Date Kaycee Cannon MD [address] [place] [phone] PCP - General 07/24/16 11/12/17 Jannette Perales NP [address] [place] [phone] PCP - General 11/13/17 documented as of this encounter
--- OUTSIDE RECORDS SUMMARY | 2024-07-09 00:18 | XMS_ITS | Encounter Summary ---
Author Organization [facility] Address [facility] [place] [address] Care Team Providers Care Geology Scientist Name Role Phone Jannette Perales DANE Primary Care Provider [phone] Reason for Visit * Reason Comments Medication Refill Encounter Details Date Type Department Care Team (Late Contact Info) Description 03/05/2021 [place] [phone] Augustine Regan MD [facility] [place] [address] Pigmentary glaucoma of both eyes, moderate stage [...] 9:45 AM EDT Office [place] [phone] Augustine Regan MD [facility] [place] [address] documented as of this encounter Visit Diagnoses Diagnosis Pigmentary glaucoma of both eyes, moderate stage Pigmentary open-angle glaucoma documented in this encounter Care Teams Geology Scientist Relationship Specialty Start Date End Date Jannette Perales APRN PCP - General General Internal Medicine 08/18/17 documented as of this encounter
--- OUTSIDE RECORDS SUMMARY | 2024-07-09 00:18 | XMS_ITS | Encounter Summary ---
Author Organization [facility] Address [facility] [place] [address] Care Team Providers Care Contract Writer Name Role Phone Jannette Perales DANE Primary Care Provider [phone] Reason for Visit * Reason Comments Medication Refill Encounter Details Date Type Department Care Team (Late Contact Info) Description 02/16/2021 Refill [place] [phone] Augustine Regan MD [facility] [place] [place] [address] Pigmentary glaucoma of both eyes, moderate stage [...] 9:45 AM EDT Office Visit [place] [phone] Augustine Regan MD [facility] [place] [address] documented as of this encounter Visit Diagnoses Diagnosis Pigmentary glaucoma of both eyes, moderate stage Pigmentary open-angle glaucoma documented in this encounter Care Teams Contract Writer Relationship Specialty Start Date End Date Jannette Perales APRN PCP - General General Internal Medicine 08/18/17 documented as of this encounter
--- OUTSIDE RECORDS SUMMARY | 2024-07-09 00:18 | XMS_ITS | Encounter Summary ---
Author Organization [facility] Address [address] [place] [address] Care Team Providers Care Wringer Operator Name Role Phone Kaycee Cannon MD Primary Care Provid er Unavailable Jannette Perales NP Primary Care Provider [phone] Encounter Details Date Type Department Care Team (Late st Contact Info) Description 01/07/2017 [address] Results [address] [facility] - [facility] Lab - Main [place] [address] [place] [id number] Kaycee Cannon MD [facility] [address] [place] [address] Social History Tobacco Use Types [...] Date/Time Associated Diagnosis Comments COMPLETE BLOOD COUNT WITH DIFFERENTIAL (AUTO) Routine 01/07/2017 16:50 EDT THYROID CASCADE Routine 01/07/2017 16:50 EDT BASIC METABOLIC PANEL (BMP) Routine 01/07/2017 16:50 EDT documented in this encounter Results * THYROID CASCADE (01/07/2017 16:50 EDT) TSH 0.97 0.35 - 5.50 uIU/mL [facility]07[facility]2017 [facility] 16:5 0 EDT 01/07/2017 17:21 EDT us Kaycee Cannon MD CHEMISTRY & BLOOD GA S ORDERABLES Final Result [facility] * (ABNORMAL) BASIC METABOLIC PANEL (BMP) (01/07/2017 16:50 EDT) Pathologist [facility] - [facility] 34(H) 7 - 18 mg/dL 01/07/2017 18:18 [facility] CALCIUM - [facility] 9.3 8.5 - 10.1 mg/dL 01/07/2017 18:18 [facility] Chloride 107 98 - 107 mEq/L 01/07/2017 18:18 [facility] CO2 Total 23 21 - 32 mEq/L 01/07/2017 18:18 [facility] CREATININE 1.35(H) 0.5 - 1.3 mg/dL 01/07/2017 18:18 [facility] eGFR 39 01/07/2017 18:18 [facility] Comment: Stage 3: Moderate renal impairment is defined as GFR 30-59 Multiply result by 1.210 for patients. eGFR calculated using the IDMS-traceable MDRD Study Equation. ??(effective 05/30/2014) Anion Gap 9 5 - 15 01/07/2017 18:18 [facility] GLUCOSE - [facility] 80 70 - 100 mg/dL 01/07/2017 18:18 [facility] Potassium 4.1 3.5 - 5.0 mEq/L 01/07/2017 18:18 [facility] Sodium 139 135 - 145 mEq/L 01/07/2017 18:18 [facility] 01/07/2017 16:5 0 EDT 01/07/2017 17:21 EDT us Kaycee Cannon MD CHEMISTRY & BLOOD GA S ORDERABLES Final Result [facility] * (ABNORMAL) COMPLETE BLOOD COUNT WITH DIFFERENTIAL (AUTO) (01/07/2017 16:50 EDT) ABSOLUTE NEUTROPHIL COUN - [facility] 2.91 1.7 - 7.0 10e3/ul 01/07/2017 18:20 EDT [facility] BASO # - [facility] 0.03 0.0 - 0.3 10e3/uL 01/07/2017 18:20 EDT [facility] BASO % - [facility] 1 0 - 2 % 01/07/2017 18:20 [facility] EOS # - [facility] 0.28 0.05 - 0.5 10e3/uL 01/07/2017 18:20 [facility] EOS % - [facility] 6(H) 0 - 5 % 01/07/2017 18:20 [facility] GRAN % - [facility] 57 40 - 80 % 01/07/2017 18:20 [facility] HEMATOCRIT - [facility] 41.0 34.0 - 47.0 % 01/07/2017 18:20 [facility] HEMOGLOBIN - [facility] 13.0 11.2 - 15.7 g/dl 01/07/2017 18:20 [facility] IG# - [facility] 0.01 0 - 0.07 e3/uL 01/07/2017 18:20 [facility] IG% - [facility] 0.2 0 - 0.9 % 01/07/2017 18:20 [facility] LYMPH # - [facility] 1.34 0.9 - 2.9 10e3/uL 01/07/2017 18:20 [facility] LYMPH% - [facility] 26 20 - 40 % 01/07/2017 18:20 [facility] MEAN CORPUSCULAR HGB - [facility] 28.6 26 - 34 pg 01/07/2017 18:20 [facility] MEAN CORPUSCULAR HGB CONC - [facility] 31.7 31 - 36 g/dL 01/07/2017 18:20 EDT [facility] MEAN CELL VOLUME - [facility] 90.1 77 - 100 fl [facility]/07/2017 [facility] MONO # - [facility] 0.51 0.3 - 0.9 10e3/uL 01/07/2017 18:20 EDT [facility] MONO% - [facility] 10 0 - 12 % 01/07/2017 18:20 EDT [facility] PLATELET COUNT 213 150 - 400 10e3/ul 01/07/2017 18:20 EDT [facility] RED BLOOD COUNT - [facility] 4.55 3.8 - 5.2 10e6/ul 01/07/2017 18:20 [facility] RED CELL DISTRI WIDTH - [facility] 14.6 11.8 - 15.6 % 01/07/2017 18:20 [facility] WHITE BLOOD COUNT - [facility] 5.1 3.5 - 10.5 10e3/ul 01/07/2017 18:20 EDT [facility] 01/07/2017 16:5 0 EDT 01/07/2017 17:21 EDT us Kaycee Cannon MD HEMATOLOGY & PF4 ORD ERABLES Final Result [facility] documented in this encounter Visit Diagnoses Not on filedocumented in this encounter Care Teams Wringer Operator Relationship Specialty Start Date End Date Kaycee Cannon MD [address] [place] [phone] PCP - General 07/24/16 11/12/17 Jannette Perales NP [address] [place] [address] PCP - General 11/13/17 documented as of this encounter
--- OUTSIDE RECORDS SUMMARY | 2024-07-09 00:18 | XMS_ITS | Encounter Summary ---
Author Organization [facility] Address [facility] [place] [address] Care Team Providers Care Electrical Power Engineer Name Role Phone Jannette Perales DANE Primary Care Provider [phone] Reason for Visit * Reason Comments Medication Refill Encounter Details Date Type Department Care Team (Late st Contact Info) Description 11/07/2021 [place] [phone] Augustine Regan MD [facility] [place] [address] Pigmentary glaucoma of both eyes, moderate stage [...] 9:45 AM EDT Office [place] [phone] Augustine Regan MD [facility] [place] [address] documented as of this encounter Visit Diagnoses Diagnosis Pigmentary glaucoma of both eyes, moderate stage Pigmentary open-angle glaucoma documented in this encounter Care Teams Electrical Power Engineer Relationship Specialty Start Date End Date Jannette Perales APRN PCP - General General Internal Medicine 08/18/17 documented as of this encounter
--- OUTSIDE RECORDS SUMMARY | 2024-07-09 00:18 | XMS_ITS | Encounter Summary ---
Author Organization [facility] Address [facility] [place] [address] Care Team Providers Care Assistant Baseball Coach Name Role Phone Jannette Perales DANE Primary Care Provider [phone] Encounter Details Date Type Department Care Team (Late st Contact Info) Description 02/04/2024 [place] [phone] Augustine Regan MD [facility] [place] [address] Social History Tobacco Use Types Packs/Day Years [...] encounter Miscellaneous Notes * Telephone Encounter - Tasha Karimi COT - 02/04/2024 3:55 PM EDT Pt called in stating [facility] in . is not able to get Brinzolamide eye drops and she is just about out. Pt wondered if there was an alternate eye drop for her to use until she can get Brinzolamide again. [facility] and Brinzolamide is not on back order they just don't keep it in stock. They have ordered it for pt and it will be in tmrw. Called pt with this info. documented in this encounter Plan of Treatment Upcoming Encounters Date Type Department Care Team (Late st Contact Info) Description 11/19/2024 9:45 AM EDT [place] [address] Augustine Regan MD [facility] [place] [address] documented as of this encounter Visit Diagnoses Not on filedocumented in this encounter Care Teams Assistant Baseball Coach Relationship Specialty Start Date End Date Jannette Perales APRN PCP - General General Internal Medicine 08/18/17 documented as of this encounter
--- OUTSIDE RECORDS SUMMARY | 2024-07-09 00:18 | XMS_ITS | Encounter Summary ---
Author Organization [facility] Address [facility] [place] [address] Care Team Providers Care Operating Room Scheduler Name Role Phone Jannette Perales DANE Primary Care Provider [phone] Reason for Visit * Reason Comments Medication Refill Encounter Details Date Type Department Care Team (Late Contact Info) Description 04/14/2021 Ref[place] [phone] Augustine Regan MD [facility] [place] [address] Pigmentary glaucoma of both eyes, moderate stage [...] 9:45 AM EDT Office [place] [phone] Augustine Regan MD [facility] [place] [address] documented as of this encounter Visit Diagnoses Diagnosis Pigmentary glaucoma of both eyes, moderate stage Pigmentary open-angle glaucoma documented in this encounter Care Teams Operating Room Scheduler Relationship Specialty Start Date End Date Jannette Perales APRN PCP - General General Internal Medicine 08/18/17 documented as of this encounter
--- OUTSIDE RECORDS SUMMARY | 2024-07-09 00:18 | XMS_ITS | Encounter Summary ---
Author Organization [facility] Address [address] [place] [address] Care Team Providers Care Carton Counter Feeder Name Role Phone Kaycee Cannon MD Primary Care Provid er Unavailable Encounter Details Date Type Department Care Team (Latest Contact Info) Description 02/14/2017 20:55 EDT - 02/14/2017 23:59 EDT Hospital Encounter [facility] [address] [place] [address] Unknown, Provider, MD Discharge Disposition: Home or [...] Drop into both eyes 2 times daily. acetaminophen (TYLENOL) 325 mg tablet Take 500 mg by mouth every 4 hours as needed for Pain. 11/26/2017 acetaminophen (TYLENOL) 500 mg tablet Take 500 mg by mouth every 6 hours as needed for Pain. 06/14/2019 allopurinol (ZYLOPRIM) 100 mg tablet Take 100 mg by mouth daily. 06/18/2019 aspirin chewable 81 mg tablet Take 81 mg by mouth daily. 08/12/2019 esomeprazole (NEXIUM) 40 mg capsule Take 40 mg by mouth every morning before breakfast. 11/26/2017 ibuprofen (MOTRIN) 800 mg tablet Take 800 mg by mouth every 6 hours as needed for Pain. 11/26/2017 LATANOPROST (XALATAN OPHTHALMIC) Apply to eye. 06/14/2019 lisinopril (ZESTRIL) 40 mg tablet Take 40 mg by mouth daily. 06/14/2019 metoprolol (LOPRESSOR) 25 mg tablet Take 25 mg by mouth 2 times daily. 08/12/2019 rosuvastatin (CRESTOR) 10 mg tablet Take 10 mg by mouth at bedtime. 06/14/2019 timolol (TIMOPTIC) 0.25 % ophthalmic solution Place 1 Drop into both eyes 2 times daily. 08/12/2019 torsemide (DEMADEX) 20 mg tablet Take 20 mg by mouth daily. 06/18/2019 traZODone (DESYREL) 150 mg tablet Take 100 mg by mouth at bedtime. 06/14/2019 documented as of this encounter Discharge Disposition Disposition Code Departure Means Destination Home or Self Assisted documented in this encounter Plan of Treatment Not on file documented as of this encounter Visit Diagnoses Not on filedocumented in this encounter Care Teams Carton Counter Feeder Relationship Specialty Start Date End Date Kaycee Cannon MD [address] [place] [phone] PCP - General 07/24/16 11/12/17 documented as of this encounter
--- OUTSIDE RECORDS SUMMARY | 2024-07-09 00:18 | XMS_ITS | Encounter Summary ---
Author Organization [facility] Address [address] [place] [address] Care Team Providers Care Specialty Finishing Utility Person Name Role Phone Rebecca Kumar MD Primary Care Provider Unavailab le Encounter Details Date Type Department Care Team (Latest Contact Info) Description 06/29/2014 9:10 EST - 06/29/2014 23:59 EST Hospital Encounter [address] [address] Unknown, Provider, MD Discharge Disposition: Home or Self Care Social History Tobacco Use Types Packs/Day Years Used Date Smoking Tobacco: Never Assessed Comments Unknown Sex and Gender Information Value Date Recorded Sex Assigned at Not on file Legal Sex Female 18:07 EST Gender Identity Female 02/07/2020 10:33 EDT Sexual Orientation Not on file documented as of this encounter Discharge Disposition Disposition Code Departure Means Destination Home or Self Snf documented in this encounter Plan of Treatment Not on file documented as of this encounter Visit Diagnoses Not on filedocumented in this encounter Care Teams Specialty Finishing Utility Person Relationship Specialty Start Date End Date Rebecca Kumar MD PCP - General 04/24/09 07/23/16 documented as of this encounter
--- OUTSIDE RECORDS SUMMARY | 2024-07-09 00:18 | XMS_ITS | Encounter Summary ---
Author Organization [facility] Address [address] [place] [address] Care Team Providers Care Accreditation Specialist Name Role Phone Rebecca Kumar MD Primary Care Provider Unavailab le Encounter Details Date Type Department Care Team (Latest Contact Info) Description 01/12/2016 14:43 EDT - 01/12/2016 23:59 EDT Hospital Encounter [facility] [address] [place] [address] Unknown, Provider, MD Discharge Disposition: Home or [...] Code Departure Means Destination Home or Self Half-Way documented in this encounter Plan of Treatment Not on file documented as of this encounter Visit Diagnoses Not on filedocumented in this encounter Care Teams Accreditation Specialist Relationship Specialty Start Date End Date Rebecca Kumar MD PCP - General 04/24/09 07/23/16 documented as of this encounter
--- OUTSIDE RECORDS SUMMARY | 2024-07-09 00:18 | XMS_ITS | Encounter Summary ---
Author Organization [facility] Address [facility] [place] [address] Care Team Providers Care Tool Grinder Set Up Operator Gear Name Role Phone Jannette Perales DANE Primary Care Provider [phone] Reason for Visit * Reason Comments Medication Refill Encounter Details Date Type Department Care Team (Late Contact Info) Description 02/11/2022 Refill [place] [phone] Augustine Regan MD [facility] [place] [address] Pigmentary glaucoma of both eyes, moderate stage [...] 9:45 AM EDT Office Visit [place] [phone] Augustine Regan MD [facility] [place] [address] documented as of this encounter Visit Diagnoses Diagnosis Pigmentary glaucoma of both eyes, moderate stage Pigmentary open-angle glaucoma documented in this encounter Care Teams Tool Grinder Set Up Operator Gear Relationship Specialty Start Date End Date Jannette Perales APRN PCP - General General Internal Medicine 08/18/17 documented as of this encounter
--- OUTSIDE RECORDS SUMMARY | 2024-07-09 00:18 | XMS_ITS | Encounter Summary ---
Author Organization [facility] Address [facility] [place] [address] Care Team Providers Care Project Analyst Name Role Phone Jannette Perales DANE Primary Care Provider [phone] Reason for Visit * Reason Comments Medication Refill Encounter Details Date Type Department Care Team (Late Contact Info) Description 03/04/2021 [place] [phone] Augustine Regan MD [facility] [place] [address] Pigmentary glaucoma of both eyes, moderate stage [...] 9:45 AM EDT Office [place] [phone] Augustine Regan MD [facility] [place] [address] documented as of this encounter Visit Diagnoses Diagnosis Pigmentary glaucoma of both eyes, moderate stage Pigmentary open-angle glaucoma documented in this encounter Care Teams Project Analyst Relationship Specialty Start Date End Date Jannette Perales APRN PCP - General General Internal Medicine 08/18/17 documented as of this encounter
--- OUTSIDE RECORDS SUMMARY | 2024-07-09 00:18 | XMS_ITS | Encounter Summary ---
Author Organization [facility] Address [address] [place] [address] Care Team Providers Care Caravan Park And Camping Ground Manager Name Role Phone Kaycee Cannon MD Primary Care Provid er Unavailable Jannette Perales NP Primary Care Provider [phone] Encounter Details Date Type Department Care Team (Late st Contact Info) Description 08/12/2017 Historical Results Only [facility] - Main [address] [id number] Mj Bailey MD [address] [place] [id number] Social History Tobacco Use Types Packs/Day Years [...] Diagnosis Comments BASIC METABOLIC PANEL (BMP) Routine 08/12/2017 9:20 EST documented in this encounter Results * (ABNORMAL) BASIC METABOLIC PANEL (BMP) (08/12/2017 9:20 EST) BUN - [facility] 42(H) 10 - 26 mg/dL 08/12/2017 10:21 EST [facility] CALCIUM - [facility] 10.0 8.5 - 10.5 mg/dL 08/12/2017 10:21 EST [facility] Chloride 106 96 - 110 mmol/L 08/12/2017 10:21 [facility] CO2 Total 23 22 - 32 mEq/L 08/12/2017 10:21 [facility] CREATININE 1.44(H) 0.52 - 1.04 mg/dL 08/12/2017 10:21 [facility] eGFR 36 08/12/2017 10:21 [facility] Comment: Stage 3: Moderate renal impairment is defined as GFR 30-59 Multiply result by 1.210 for patients. eGFR calculated using the IDMS-traceable MDRD Study Equation. ??(effective 05/30/2014) Anion Gap 16 0 - 18 08/12/2017 10:21 [facility] GLUCOSE - [facility] 115(H) 70 - 100 mg/dL 08/12/2017 10:21 [facility] Potassium 4.9 3.5 - 5.0 mEq/L 08/12/2017 10:21 [facility] Sodium 145 136 - 145 mEq/L 08/12/2017 10:21 [facility] 08/12/2017 9:20 EST 08/12/2017 9:20 EST Narrative [facility] - 08/12/2017 10:21 EST Does PT Have a Latex Allergy? NO us Mj Bailey MD CHEMISTRY & BLOOD GAS ORDERAB LES Final Result [facility] documented in this encounter Visit Diagnoses Not on filedocumented in this encounter Care Teams Caravan Park And Camping Ground Manager Relationship Specialty Start Date End Date Kaycee Cannon MD [address] [place] [phone] PCP - General 07/24/16 11/12/17 Jannette Perales NP [address] [place] [phone] PCP - General 11/13/17 documented as of this encounter
--- OUTSIDE RECORDS SUMMARY | 2024-07-09 00:18 | XMS_ITS | Encounter Summary ---
Author Organization [facility] Address [address] [place] [address] Care Team Providers Care Psychological Tests Sales Agent Name Role Phone Jannette Perales FLORENCIO Primary Care Provider [phone] Reason for Visit * Reason Comments New Patient Visit discuss lap sharon f und * Consult (Routine) - Closed Specialty Diagnoses / Procedures Referred By Max page Referred To Contact General Surgery Diagnoses Chronic GERD Yassine Hagen MD Borrazzo, Alejandro Yi MD Phone: tel: fax: Referral ID Status Reason Start Date Expiration Date Visits Re quested Visits Authorized [id number] Closed 1 1 Encounter Details Date Type Department Care Team (Late st Contact Info) Description 11/13/2017 13:00 EDT Office Visit [facility] General Surgery - [address] [phone] Alejandro Calloway MD [address] [place] [address], [address] [place] [phone] Gastroesophageal reflux disease without esophagitis [...] Sign Reading Time Taken Comments Blood Pressure 142/84 11/13/2017 1248 EDT Pulse 60 11/13/2017 1248 EDT Temperature - - Respiratory Rate 18 11/13/2017 1248 EDT Oxygen Saturation - - Inhaled Oxygen Concentration - - Weight 81.6 kg (180 lb) 11/13/2017 1248 EDT irwin mandujano Height 152.4 cm (5') 11/13/2017 1248 EDT Body Mass Index 35.15 11/13/2017 1248 EDT documented in this encounter Discharge Diagnoses Diagnosis K21.9 Gastro-esophageal reflux disease without esophagitis-K21.9[ICD-10-CM] documented in this encounter Discharge Disposition Disposition Code Departure Means Destination Auto Discharge documented in this encounter Progress Notes * Mervin Barton - 11/13/2017 1300 EDT Gastroesophageal Reflux Disease Scale [facility] General Surgery Patient Name: Sona Rodrigez Date: 11/13/2017 GERD-HRQL SCALE Patient symptoms are noted as follows: How bad is your heartburn? 3 = Symptoms bothersome everyday Heartburn when lying down? 0 = No symptoms Heartburn when standing up? 3 = Symptoms bothersome everyday Heartburn after meals? 0 = No symptoms Does heartburn change your diet? 3 = Symptoms bothersome everyday Does heartburn wake you from sleep? 3 = Symptoms bothersome everyday Do you have difficulty swallowing? 0 = No symptoms Do you have pain with swallowing? 0 = No symptoms Do you have gassy or bloating feelings? 3 = Symptoms bothersome everyday If you take medication, does it affect your daily life? 3 = Symptoms bothersome everyday How satisfied are you with your present condition? Dissatisfied HRQL Total= 18 * Alejandro Calloway MD - 11/13/2017 1300 EDT Division of General Surgery Date of Service: 11/13/2017 PROBLEM: 1. Gastroesophageal reflux disease without esophagitis HISTORY OF PRESENT ILLNESS: I am seeing Sona Rodrigez in the office today in consultation by Yassine Hagen MD for 1. Gastroesophageal reflux disease without esophagitis This is a 72 y.o. female with GERD refractory to meds and conservative treatment. PH probe showed pathologic reflux, especially on day 1. EGD showed severe esophagitis. GERD-HRQL = 18 and she's dissatisfied with her present condition. Past Medical History: Diagnosis Date ??? Arthritis [...] Cancer Sister ??? Migraines Sister Social History Social History ??? Marital status: Spouse name: N/A ??? Number of children: N/A ??? Years of education: N/A Social History Main Topics ??? Smoking status: Never Smoker ??? Smokeless tobacco: Never Used ??? Alcohol use 1.2 oz/week 2 Cans of beer per week ??? Drug use: No ??? Sexual activity: Not Asked Other Topics Concern ??? None Social History Narrative Current Outpatient Prescriptions: acetaminophen (TYLENOL) 500 mg tablet allopurinol (ZYLOPRIM) 100 mg tablet aspirin chewable 81 mg tablet brinzolamide (AZOPT) 1 % ophthalmic suspension cholecalciferol, Vitamin D3, 1,000 unit tablet ibuprofen (MOTRIN) 600 mg tablet LATANOPROST (XALATAN OPHTHALMIC) lisinopril (ZESTRIL) 40 mg tablet metoprolol (LOPRESSOR) 25 mg tablet ondansetron (ZOFRAN-ODT) 4 mg disintegrating tablet oxyCODONE (ROXICODONE) 5 mg/5 mL solution rosuvastatin (CRESTOR) 10 mg tablet spironolactone (ALDACTONE) 25 mg tablet timolol (TIMOPTIC) 0.25 % ophthalmic solution torsemide (DEMADEX) 20 mg tablet traZODone (DESYREL) 150 mg tablet No current facility-administered medications for this visit. Allergies Allergen Reactions ??? Dilaudid [Hydromorphone] Itching ??? Hydrocodone Itching ??? Oxycodone Itching ??? Propine [Dipivefrin] Rash Eye drops REVIEW OF SYSTEMS: A ten point review of systems was performed and all were negative except as listed below. Patient Active Problem List Diagnosis ??? Functional dyspepsia ??? Gastroesophageal reflux disease without esophagitis OBJECTIVE: Vitals: 11/13/17 1248 BP: (!) 142/84 Pulse: 60 Resp: 18 Weight: 81.6 kg (180 lb) Height: 152.4 cm (60) Body mass index is 35.15 kg/(m^2). She is afebrile. General: No acute distress. HEENT: Normal. Neck: Supple. Skin: Normal. Lungs: Clear, bilaterally. Heart: Regular rate and rhythm. Abdomen: Soft, nondistended, nontender, no masses, no organomegaly. Vascular: Normal. Musculoskeletal: Normal. Neurologic: Normal. ASSESSMENT & PLAN: A 72 y.o. female with GERD. I offered Ms. Rodrigez a laparoscopic Sharon fundoplication. I told her what that entailed and described the procedure in detail. I gave her a CISSO[facility] booklet regarding the procedure. Risks include infection; bleeding; injury to the esophagus, stomach, liver, spleen, heart, lungs, large blood vessels; persistent dysphagia; gas; bloating and recurrent reflux, as well as a chance of converting to an openprocedure. She understood all this and was willing to proceed. She will be scheduled at the first mutually convenient time. documented in this encounter Plan of Treatment Not on file documented as of this encounter Visit Diagnoses Diagnosis Gastroesophageal reflux disease without esophagitis- Primary Esophageal reflux documented in this encounter Historical Medications * This list may reflect changes made after this encounter. cholecalciferol, Vitamin D3, 1,000 unit tablet Take 1 Tablet by mouth daily. ranitidine (ZANTAC) 150 mg tablet Take 150 mg by mouth 2 times daily. 12/03/2017 spironolactone (ALDACTONE) 25 mg tablet Take 12.5 mg by mouth daily. 07/05/2019 added in this encounter Care Teams Psychological Tests Sales Agent Relationship Specialty Start Date End Date Jannette Perales NP [address] [place] [phone] PCP - General 11/13/17 documented as of this encounter
--- OUTSIDE RECORDS SUMMARY | 2024-07-09 00:18 | XMS_ITS | Encounter Summary ---
Author Organization [facility] Address [address] [place] [address] Care Team Providers Care Broach Setter Name Role Phone Rebecca Kumar MD Primary Care Provider Unavailab Kaycee Wayne MD Primary Care Provid er Unavailable Jannette Perales NP Primary Care Provider [phone] Encounter Details Date Type Department Care Team (Late st Contact Info) Description 02/07/2016 Historical Results Only [facility] Radiology Results [address] [place] [address] Amy Ramos, DO [address] [place] [address] Social History Tobacco Use Types [...] Procedure Name Priority Date/Time Associated Diagnosis Comments HISTORICAL STRESS TEST 6 10:00 EDT TRANSTHORACIC ECHO (TTE) COMPLETE 02/07/2016 9:32 EDT NM CARD SPECT NUCLEAR STRESS 02/07/2016 9:19 EDT documented in this encounter Results * HISTORICAL STRESS TEST (02/07/2016 10:00 EDT) Anatomical Region Laterality Modality Nuclear Stress 02/07/2016 10:0 0 EDT Narrative 02/07/2016 10:00 EDT ? [facility] ?[facility] ?[facility] [address] [place], [place] [address] ? [id number] ?C A R D I A C ?S T R E S S ?T E S T ?R E P O R T NAME: ROOT,SONA L ? : 43 TELEPHONE: [phone] ? MR#: [id number] ? *[facility]* *[facility]* [address] [place] [address] Myocardial Perfusion Imaging - SPECT Regadenoson Date of study: ??02/07/2016 *PATIENT PRESENTATION* Height: ? 152.4cm ((60in) ) Blood Pressure: Weight: ? 77.3kg ((170lb) ) BSA: ?1.84m S 2 Ordering physician: Amy Ramos Impressions: ??Normal perfusion by Tc99m Sestamibi Imaging. Summary: 1. Myocardial perfusion imaging: No myocardial perfusion defects noted. 2. The calculated left ventricular ejection fraction after stress: 75%. Indication: ?? 786.05 Shortness of Breath. History: ??PAST 2 MONTHS, SOB NOTED WITH MINIMAL EXERTION OR WHEN BENDING OVER. PATIENT STATES SYMPTOMS ARE SOMEWHAT STABLE, NOT INCREASING IN FREQUENCY. NO C/O CHEST PAIN. SOME GENERALIZED FATIGUE NOTED. 2006- CARDIAC CATH- STENT X 1 TO MID RCA. ( 65% LAD, 40%LCX AND 30% RCA LESIONS LEFT ALONE) ??Risk factors: ??Family history of coronary artery disease. Hypertension. Dyslipidemia. Cholesterol: 143mg/dl. HDL: 31mg/dl. LDL: 71mg/dl. Triglycerides: 207mg/dl. MEDS: ZESTRIL 40 MG, NEXIUM, ALLOPURINOL, CRESTOR 10 MG, TRAZODONE, DEMADEX 20 MG, METOPROLOL 25 MG, ASA 81 MG, EYE GTTS. ALLERGIES: DILAUDID, HYDROCODONE. Imaging Technique: Protocol: ??Regadenoson. Acquisition: ?? Gated SPECT; 1 day - rest/stress. ?The patient was imaged in the supine position. Attenuation correction used. Isotope administration: - Rest. Tc[99m]-sestamibi. Injection to stress time: 00:45. - Stress. Tc[99m]-sestamibi. 1-2 min before end of exercise ? [facility] ?[facility] ?[address] [address] ? [id number] ?C A R D I A C ?S T R E S S ?T E S T ?R E P O R T NAME: ROOT,SONA L ? : 43 TELEPHONE: [phone] ? MR#: [id number] ? Baseline ECG: ??SINUSBRADY-57 BPM. Stress protocol: +--------+--+ + + !Stage ?? !HR!BP (mmHg) ?? !Comments ? ! +--------+--+ + + !Baseline!57!137/87 (104)! ! +--------+--+ + + !1 min ?? !91! !Inject Regadenoson.! +--------+--+ + + !2 min ?? !88!153/79 (104)! ! +--------+--+ + + !3 min ?? !85! ! ! +--------+--+ + + !4 min ?? !74!136/81 (99) ! ! +--------+--+ + + !5 min ?? !74! ! ! +--------+--+ + + !6 min ?? !73!141/78 (99) ! ! +--------+--+ + + !7 min ?? !74! ! ! +--------+--+ + + * Stress results: ??The rate-pressure product for the peak heart rate and blood pressure was 26389pr Hg/min. Stress ECG: ??RESTING LEXISCAN STUDY RARE PVC NO CHEST PAIN T INVERSIONS 2,3,AVF,V2-V6. Myocardial perfusion: ?? Imaging information: gated. No myocardial perfusion defects noted. Ventricular Function (Wall Motion): ?? The calculated left ventricular ejection fraction after stress: 75%. Study data: ??Darren Bailey MD supervised and was readily available during the procedure. This study was interpreted by [facility] [place] [facility]. ??Study status: ??Routine. Consent: ??The risks, benefits, and alternatives to the procedure were explained to the patient and informed consent was obtained. ??Procedure: ??Initial setup. A baseline ECG was recorded. Surface ECG leads and manual cuff blood pressure measurements were monitored. Heart sounds: Normal. Lung sounds: Normal. Regadenoson stress test. Stress testing was performed, with regadenoson by intravenous bolus, for a total dose of 0.4mgover 10.00sec, followed by a 5ml saline flush. The infusion was terminated due to per protocol. ??Study completion: ??All catheters inserted during the procedure were removed. The patient tolerated the procedure well and was discharged from the lab. Discharge: ??The patient left the laboratory in stable condition. ? Birthdate: ? [facility] ?[facility] ?[facility] [address] [place] [address] ? [id number] ?C A R D I A C ?S T R E S S ?T E S T ?R E P O R T NAME: ROOT,SONA L ? : 43 TELEPHONE: [phone] ? MR#: [id number] ? Patient birthdate: 1945. ??Sex: ??Gender: female. ??Study date: ??Study date: 02/07/2016. Study time: 10:00 AM. Electronically signed by Darren Bailey MD 02/07/2016 11:52 Procedure Note Darren Bailey - 05/16/2019 [facility] [address] [place], [place] [id number] C A R D I A C S T R E S S T E S T R E P O R T NAME: SONA GUPTA LDOB: 43 TELEPHONE: [phone] MR#: [id number] *[facility]* *[facility]* [address] [place] [address] Myocardial Perfusion Imaging - SPECT Regadenoson Date of study: 02/07/2016 *PATIENT PRESENTATION* Height: 152.4cm ((60in) ) Blood Pressure: Weight: 77.3kg ((170lb) ) BSA: 1.84m S 2 Ordering physician: Amy Ramos Impressions: Normal perfusion by Tc99m Sestamibi Imaging. Summary: 1. Myocardial perfusion imaging: No myocardial perfusion defects noted. 2. The calculated left ventricular ejection fraction after stress: 75%. Indication: 786.05 Shortness of Breath. History: PAST 2 MONTHS, SOB NOTED WITH MINIMAL EXERTION OR WHEN BENDINGOVER. PATIENT STATES SYMPTOMS ARE SOMEWHAT STABLE, NOT INCREASING IN FREQUENCY.NO C/O CHEST PAIN. SOME GENERALIZED FATIGUE NOTED. 2006- CARDIAC CATH- STENT X 1 TO MID RCA. ( 65% LAD, 40%LCX AND 30% RCALESIONS LEFT ALONE) Risk factors: Family history of coronary artery disease. Hypertension. Dyslipidemia. Cholesterol: 143mg/dl. HDL: 31mg/dl. LDL:71mg/dl. Triglycerides: 207mg/dl. MEDS: ZESTRIL 40 MG, NEXIUM, ALLOPURINOL, GSJGDPS31 MG, TRAZODONE, DEMADEX 20 MG, METOPROLOL 25 MG, ASA 81 MG, EYE GTTS. ALLERGIES: DILAUDID, HYDROCODONE. Imaging Technique: Protocol: Regadenoson. Acquisition: Gated SPECT; 1 day - rest/stress. The patient was imagedin the supine position. Attenuation correction used. Isotope administration: - Rest. Tc[99m]-sestamibi. Injection to stress time: 00:45. - Stress. Tc[99m]-sestamibi. 1-2 min before end of exercise [facility] [address] [place] [address] [id number] C A Simone D I A C S T R E S S T E S T R E P O R T NAME: SONA GUPTA LDOB: 43 TELEPHONE: [phone] MR#: [id number] Baseline ECG: SINUSBRADY-57 BPM. Stress protocol: +--------+--+ + + !Stage !HR!BP (mmHg) !Comments ! +--------+--+ + + !Baseline!57!137/87 (104)! ! +--------+--+ + + !1 min !91! !Inject Regadenoson.! +--------+--+ + + !2 min !88!153/79 (104)! ! +--------+--+ + + !3 min !85! ! ! +--------+--+ + + !4 min !74!136/81 (99) ! ! +--------+--+ + + !5 min !74! ! ! +--------+--+ + + !6 min !73!141/78 (99) ! ! +--------+--+ + + !7 min !74! ! ! +--------+--+ + + * Stress results: The rate-pressure product for the peak heart rate andblood pressure was 05047mx Hg/min. Stress ECG: RESTING LEXISCAN STUDY RARE PVC NO CHEST PAIN T INVERSIONS 2,3,AVF,V2-V6. Myocardial perfusion: Imaging information: gated. No myocardialperfusion defects noted. Ventricular Function (Wall Motion): The calculated left ventricularejection fraction after stress: 75%. Study data: Darren Bailey MD supervised and was readily available duringthe procedure. This study was interpreted by [facility] [place] [facility]. Study status:Routine. Consent: The risks, benefits, and alternatives to the procedure wereexplained to the patient and informed consent was obtained. Procedure: Initialsetup. A baseline ECG was recorded. Surface ECG leads and manual cuff bloodpressure measurements were monitored. Heart sounds: Normal. Lung sounds: Normal. Regadenoson stress test. Stress testing was performed, with regadenosonby intravenous bolus, for a total dose of 0.4mgover 10.00sec, followed by a5ml saline flush. The infusion was terminated due to per protocol. Study completion: All catheters inserted during the procedure were removed.The patient tolerated the procedure well and was discharged from the lab. Discharge: The patient left the laboratory in stable condition.Birthdate: [facility] [address] [place] [address] [id number] C A R D I A C S T R E S S T E S T R E P O R T NAME: SONA GUPTA LDOB: 43 TELEPHONE: [phone] MR#: [id number] Patient birthdate: 1945. Sex: Gender: female. Study date: Studydate: 02/07/2016. Study time: 10:00 AM. Electronically signed by Darren Bailey MD 02/07/2016 11:52 us Provider Unknown CARDIAC NM ORDERABLES Final Result * TRANSTHORACIC ECHO (TTE) COMPLETE (02/07/2016 9:32 EDT) Anatomical Region Laterality Modality Ultrasound 02/07/2016 9:32 EDT Narrative 02/07/2016 9:32 EDT ?[facility] ?[address] [place] [address] ? [id number] ? E C H O C A R D I O G R A M ? R E P O R T NAME: ROOT,SONA L ? : [birth year] ? LOCATION: DI ? TELEPHONE: [phone] ?MR#: [id number] ? *[facility]* *[facility]* [address] [place] [address] Date of study: 02/07/2016 Transthoracic Echocardiography M-mode, complete 2D, complete spectral Doppler, and color Doppler *STUDY CONCLUSIONS* Summary: 1. Study data: Comparison was made to the study of September 1997. EF 70% then. 2. Left ventricle: The cavity size was normal. Wall thickness was normal. ?? Systolic function was normal. The estimated ejection fraction was 60-65%. ?? Wall motion was normal; there were no regional wall motion abnormalities. ?? Doppler parameters are consistent with high ventricular filling pressure. 3. Aortic valve: There was trivial regurgitation. 4. Left atrium: The atrium was mildly dilated. 5. Right ventricle: The cavity size was normal. Wall thickness was normal. ?? Systolic function was normal. 6. Atrial septum: No defect or patent foramen ovale was identified. 7. Pulmonary arteries: Pulmonary systolic pressure was in the range of 25mm Hg ?? to 35mm Hg. 8. Inferior vena cava: The vessel was normal in size. The respirophasic diameter ?? changes were in the normal range (greater than or equal to 50%), consistent ?? with normal central venous pressure. *PATIENT PRESENTATION* Height: ? 152.4cm ((60in) ) S/D Pressure: 190 / 89 Weight: ? 77.1kg ((169.6lb) ) BSA: ?1.84m S 2 Test start time: ??09:30 AM. Test stop time: ??10:02 AM. ORDERING ? Amy Ramos REFERRING ?Amy Ramos DEPARTMENT EDITOR ??Lexus Eaton PERFORMING ?? [facility] *PROCEDURE DATA* ?[facility] ?[address] [place], [place] [address] ? [id number] ? E C H O C A R D I O G R A M ? R E P O R T NAME: ROOT,SONA L ? : 43 ? LOCATION: DI ? TELEPHONE: [phone] ?MR#: [id number] ? Procedure information: ??This study was interpreted by [facility] [place] [facility]. Pertinent images and digital data are archived for permanent storage and are available for subsequent review. Comparison was made to the study of September 1997. ??Study status: ??Routine. Transthoracic echocardiography. ??M-mode, complete 2D, complete spectral Doppler, and color Doppler. A Transthoracic Echocardiogram was performed. Scanning was performed from the parasternal, apical, subcostal, and suprasternal notch acoustic windows. Images were obtained using a [facility] IE33 1 cardiac ultrasound machine. Image quality was adequate. ??Study completion: ??The patient tolerated the procedure well. *INDICATIONS AND HISTORY* Indications: ??DYSPNEA *CARDIAC ANATOMY* Left ventricle: ??The cavity size was normal. Wall thickness was normal. Systolic function was normal. The estimated ejection fraction was 60-65%. Wall motion was normal; there were no regional wall motion abnormalities. The tissue Doppler parameters were abnormal. Doppler parameters are consistent with high ventricular filling pressure. Aortic valve: ?? Trileaflet; normal thickness leaflets. Mobility was not restricted. ??Doppler: ??Transvalvular velocity was within the normal range. There was no stenosis. There was trivial regurgitation. Aorta: ??Aortic root: The aortic root was normal in size. Ascending aorta: The ascending aorta was normal in size. Mitral valve: ?? Structurally normal valve. ?? Mobility was not restricted. Doppler: ??Transvalvular velocity was within the normal range. There was no evidence for stenosis. There was no regurgitation. ?Peak gradient (D): 2.8mm Hg. Left atrium: ??The atrium was mildly dilated. Atrial septum: ??No defect or patent foramen ovale was identified. Right ventricle: ??The cavity size was normal. Wall thickness was normal. Systolic function was normal. Pulmonic valve: ?Doppler: ??Transvalvular velocity was within the normal range. There was no evidence for stenosis. There was no regurgitation. Tricuspid valve: ?? Doppler: ??There was mild regurgitation. Pulmonary artery: ?? Poorly visualized. Pulmonary systolic pressure was in the range of 25mm Hg to 35mm Hg. Right atrium: ??The atrium was normal in size. Pericardium: ??There was no pericardial effusion. Systemic veins: Inferior vena cava: The vessel was normal in size. The respirophasic diameter changes were in the normal range (greater than or equal to 50%), consistent with normal central venous pressure. Baseline ECG: ?? Normal sinus rhythm. ?[facility] ? [address] [place] [address] ? [id number] ? E C H O C A R D I O G R A M ? R E P O R T NAME: ROOT,SONA L ? : 43 ? LOCATION: DI ? TELEPHONE: [phone] ?MR#: [id number] ? Measurements Left ventricle ? Value ?Reference LV ID, ED, PLAX chordal ?(L) ? 3.6 ?? cm ? 4.3 - 5.2 LV ID, ES, PLAX chordal ?(L) ? 2.1 ?? cm ? 2.3 - 3.8 LV fx shortening, PLAX chordal ? 42 ?% ?>=29 LV PW thickness, ED ?0.9 ?? cm ? IVS/LV PW ratio, ED ?0.8 ?<=1.3 LV end-diastolic volume ?56 ?ml ? LV end-systolic volume ? 14 ?ml ? LV ejection fraction ? 74 ?% ? LV ejection fraction, 1-p A2C ?66 ?% ? LV end-systolic volume, 2-p ?18 ?ml ? LV ejection fraction, 2-p ?63 ?% ? LV IVRT, DP ?70 ?ms ? 60 - 100 LV e', lateral ? 0.074 m/sec ?? LV E/e', lateral ? 11 ? LV e', medial ?0.049 m/sec ?? LV E/e', medial ?17 ? LV e', average ? 0.061 m/sec ?? LV E/e', average ? 14 ? Ventricular septum ? Value ?Reference IVS thickness, ED ?0.7 ?? cm ? Aorta ?Value ?Reference Aortic root ID ? 3.2 ?? cm ? Ascending aorta ID, A-P ?3.0 ?? cm ? Ascending aorta ID, A-P, S ? 3.0 ?? cm ? Left atrium ?Value ?Reference LA area, ES, A4C ? 20 ?cm S 2 ?? 8.8 - 23.4 LA area, ES, A2C ? 16 ?cm S 2 ?? LA volume, ES, 2-p ? 54 ?ml ? LA volume/bsa, ES, 2-p ? 29 ?ml/m S 2 Mitral valve ? Value ?Reference Mitral E-wave peak velocity ?0.84 ??m/sec ?? Mitral A-wave peak velocity ?0.96 ??m/sec ?? Mitral deceleration time ? 218 ?? ms ? 150 - 230 Mitral peak gradient, D ?2.8 ?? mm Hg ?? Mitral E/A ratio, peak ? 0.9 ? Right atrium ? Value ?Reference RA area, ES, A4C ? 14 ?cm S 2 ?? 8.3 - 19.5 Legend: (L) ??and ??(H) ??garo values outside specified reference range. I have personally reviewed the images and have reviewed and edited the reported findings. Electronically signed by ?[facility] ?[address] [place], [place] [address] ? [id number] ? E C H O C A R D I O G R A M ? R E P O R T NAME: SONA GUPTA ? : 43 ? LOCATION: DI ? TELEPHONE: [phone] ?MR#: [id number] ? Darren Bailey MD 02/07/2016 10:49 Procedure Note Darren Bailey G - 05/16/2019 [facility] [address] [place], [place] [address] [id number] E C H O C A R D I O G R A M R E P O R T NAME: SONA GUPTA : 43LOCATION: DI TELEPHONE: [phone] MR#: [id number] *[facility]* *[facility]* [address] [place] [address] Date of study: 02/07/2016 Transthoracic Echocardiography M-mode, complete 2D, complete spectral Doppler, and color Doppler *STUDY CONCLUSIONS* Summary: 1. Study data: Comparison was made to the study of September 1997. EF 70%then. 2. Left ventricle: The cavity size was normal. Wall thickness wasnormal. Systolic function was normal. The estimated ejection fraction [id number]%. Wall motion was normal; there were no regional wall motionabnormalities. Doppler parameters are consistent with high ventricular fillingpressure. 3. Aortic valve: There was trivial regurgitation. 4. Left atrium: The atrium was mildly dilated. 5. Right ventricle: The cavity size was normal. Wall thickness wasnormal. Systolic function was normal. 6. Atrial septum: No defect or patent foramen ovale was identified. 7. Pulmonary arteries: Pulmonary systolic pressure was in the range of25mm Hg to 35mm Hg. 8. Inferior vena cava: The vessel was normal in size. The respirophasicdiameter changes were in the normal range (greater than or equal to 50%),consistent with normal central venous pressure. *PATIENT PRESENTATION* Height: 152.4cm ((60in) ) S/D Pressure: 190 / 89 Weight: 77.1kg ((169.6lb) ) BSA: 1.84m S 2 Test start time: 09:30 AM. Test stop time: 10:02 AM. ORDERING Amy Ramos REFERRING Amy Ramos DEPARTMENT EDITOR Lexus Eaton PERFORMING Cv *PROCEDURE DATA* [facility] [address] [place] [address] [id number] E C H O C A R D I O G R A M R E P O R T NAME: SONA GUPTA : 43LOCATION: [facility] TELEPHONE: [phone] MR#: [id number] Procedure information: This study was interpreted by [facility]. Pertinent imagesand digital data are archived for permanent storage and are available forsubsequent review. Comparison was made to the study of September 1997. Study status:Routine. Transthoracic echocardiography. M-mode, complete 2D, complete spectralDoppler, and color Doppler. A Transthoracic Echocardiogram was performed. Scanningwas performed from the parasternal, apical, subcostal, and suprasternalnotch acoustic windows. Images were obtained using a [facility] IE33 1 cardiacultrasound machine. Image quality was adequate. Study completion: The patienttolerated the procedure well. *INDICATIONS AND HISTORY* Indications: DYSPNEA *CARDIAC ANATOMY* Left ventricle: The cavity size was normal. Wall thickness was normal.Systolic function was normal. The estimated ejection fraction was 60-65%. Wallmotion was normal; there were no regional wall motion abnormalities. The tissueDoppler parameters were abnormal. Doppler parameters are consistent with high ventricular filling pressure. Aortic valve: Trileaflet; normal thickness leaflets. Mobility was not restricted. Doppler: Transvalvular velocity was within the normal range.There was no stenosis. There was trivial regurgitation. Aorta: Aortic root: The aortic root was normal in size. Ascending aorta: The ascending aorta was normal in size. Mitral valve: Structurally normal valve. Mobility was notrestricted. Doppler: Transvalvular velocity was within the normal range. There wasno evidence for stenosis. There was no regurgitation. Peak gradient (D):2.8mm Hg. Left atrium: The atrium was mildly dilated. Atrial septum: No defect or patent foramen ovale was identified. Right ventricle: The cavity size was normal. Wall thickness was normal. Systolic function was normal. Pulmonic valve: Doppler: Transvalvular velocity was within the normalrange. There was no evidence for stenosis. There was no regurgitation. Tricuspid valve: Doppler: There was mild regurgitation. Pulmonary artery: Poorly visualized. Pulmonary systolic pressure was inthe range of 25mm Hg to 35mm Hg. Right atrium: The atrium was normal in size. Pericardium: There was no pericardial effusion. Systemic veins: Inferior vena cava: The vessel was normal in size. The respirophasicdiameter changes were in the normal range (greater than or equal to 50%),consistent with normal central venous pressure. Baseline ECG: Normal sinus rhythm. [facility] [address] [place], [place] [address] [id number] E C H O C A R D I O G R A M R E P O R T NAME: SONA GUPTA : 43LOCATION: [place] TELEPHONE: [phone] MR#: [id number] [facility]#:[id number] Measurements Left ventricle Value Reference LV ID, ED, PLAX chordal (L) 3.6 cm 4.3 - 5.2 LV ID, ES, PLAX chordal (L) 2.1 cm 2.3 - 3.8 LV fx shortening, PLAX chordal 42 % >=29 LV PW thickness, ED 0.9 cm IVS/LV PW ratio, ED 0.8 <=1.3 LV end-diastolic volume 56 ml LV end-systolic volume 14 ml LV ejection fraction 74 % LV ejection fraction, 1-p A2C 66 % LV end-systolic volume, 2-p 18 ml LV ejection fraction, 2-p 63 % LV IVRT, DP 70 ms 60 - 100 LV e', lateral 0.074 m/sec LV E/e', lateral 11 LV e', medial 0.049 m/sec LV E/e', medial 17 LV e', average 0.061 m/sec LV E/e', average 14 Ventricular septum Value Reference IVS thickness, ED 0.7 cm Aorta Value Reference Aortic root ID 3.2 cm Ascending aorta ID, A-P 3.0 cm Ascending aorta ID, A-P, S 3.0 cm Left atrium Value Reference LA area, ES, A4C 20 cm S 2 8.8 - 23.4 LA area, ES, A2C 16 cm S 2 LA volume, ES, 2-p 54 ml LA volume/bsa, ES, 2-p 29 ml/m S 2 Mitral valve Value Reference Mitral E-wave peak velocity 0.84 m/sec Mitral A-wave peak velocity 0.96 m/sec Mitral deceleration time 218 ms 150 - 230 Mitral peak gradient, D 2.8 mm Hg Mitral E/A ratio, peak 0.9 Right atrium Value Reference RA area, ES, A4C 14 cm S 2 8.3 - 19.5 Legend: (L) and (H) garo values outside specified reference range. I have personally reviewed the images and have reviewed and edited thereported findings. Electronically signed by [facility] [address] [place], [place] [address] [id number] E C H O C A R D I O G R A M R E P O R T NAME: SONA GUPTA : 43LOCATION: DI TELEPHONE: [phone] MR#: [id number] Darren Bailey MD 02/07/2016 10:49 us Provider Unknown CARDIAC ECHO ORDERABLES Mela cerna Result * NM CARD SPECT NUCLEAR STRESS (02/07/2016 9:19 EDT) Anatomical Region Laterality Modality Chest Nuclear Stress 02/07/2016 9:19 EDT Narrative 02/12/2016 16:16 EDT ? EXAM: NUCLEAR MEDICINE/NUCLEAR STRESS [place] EX. D/ (0919) ? CLINICAL INFORMATION: ? R06.09 EXERTIONAL DYSPNEA ? R53.83 OTHER FATIGUE ? *[facility]* ? *[facility]* ? [address] ? [place] [address] ? Myocardial Perfusion Imaging - SPECT ? Regadenoson ? Date of study: ??02/07/2016 ? *PATIENT PRESENTATION* ? Height: ? 152.4cm ((60in) ) ? Blood Pressure: ? Weight: ? 77.3kg ((170lb) ) ? BSA: ?1.84m S 2 ? Ordering physician: Amy Ramos ? Impressions: ??Normal perfusion by Tc99m Sestamibi Imaging. ? Summary: ? 1. Myocardial perfusion imaging: No myocardial perfusion defects ?noted. ? 2. The calculated left ventricular ejection fraction after stress: ?75%. ? Indication: ?? 786.05 Shortness of Breath. ? History: ??PAST 2 MONTHS, SOB NOTED WITH MINIMAL EXERTION OR WHEN ? BENDING OVER. PATIENT STATES SYMPTOMS ARE SOMEWHAT STABLE, NOT ? INCREASING IN FREQUENCY. NO C/O CHEST PAIN. SOME GENERALIZED FATIGUE ? NOTED. ? 2006- CARDIAC CATH- STENT X 1 TO MID RCA. ( 65% LAD, 40%LCX AND 30% ? RCA LESIONS LEFT ALONE) ? Risk factors: ??Family history of coronary artery disease. ? Hypertension. Dyslipidemia. ? Cholesterol: 143mg/dl. ? HDL: 31mg/dl. ? LDL: 71mg/dl. ? Triglycerides: 207mg/dl. ? MEDS: ZESTRIL 40 MG, NEXIUM, ALLOPURINOL, CRESTOR 10 MG, TRAZODONE, ? DEMADEX 20 MG, METOPROLOL 25 MG, ASA 81 MG, EYE GTTS. ? ALLERGIES: DILAUDID, HYDROCODONE. ? PAGE 1 ? Signed Report ? (CONTINUED) ? Imaging Technique: ? Protocol: ??Regadenoson. ? Acquisition: ?? Gated SPECT; 1 day - rest/stress. ?The patient was ? imaged in the supine position. Attenuation correction used. ? Isotope administration: ? - Rest. Tc[99m]-sestamibi. Injection to stress time: 00:45. ? - Stress. Tc[99m]-sestamibi. 1-2 min before end of exercise ? Baseline ECG: ??SINUSBRADY-57 BPM. ? Stress protocol: ? +--------+--+ + + ? !Stage ?? !HR!BP (mmHg) ?? !Comments ? ! ? +--------+--+ + + ? !Baseline!57!137/87 (104)! ! ? +--------+--+ + + ? !1 min ?? !91! !Inject Regadenoson.! ? +--------+--+ + + ? !2 min ?? !88!153/79 (104)! ! ? +--------+--+ + + ? !3 min ?? !85! ! ! ? +--------+--+ + + ? !4 min ?? !74!136/81 (99) ! ! ? +--------+--+ + + ? !5 min ?? !74! ! ! ? +--------+--+ + + ? !6 min ?? !73!141/78 (99) ! ! ? +--------+--+ + + ? !7 min ?? !74! ! ! ? +--------+--+ + + ? * ? Stress results: ??The rate-pressure product for the peak heart rate and ? blood pressure was 14491wu Hg/min. ? Stress ECG: ??RESTING LEXISCAN STUDY ? RARE PVC ? NO CHEST PAIN ? T INVERSIONS 2,3,AVF,V2-V6. ? Myocardial perfusion: ?? Imaging information: gated. No myocardial ? perfusion defects noted. ? Ventricular Function (Wall Motion): ?? The calculated left ventricular ? ejection fraction after stress: 75%. ? Study data: ??Darren Bailey MD supervised and was readily available ? during the procedure. This study was interpreted by [facility] [place] [facility] ? [facility]. ? Study status: Routine. ? Consent: ??The risks, benefits, and alternatives to the procedure were ? explained to the patient and informed consent was obtained. ? Procedure: ??Initial setup. A baseline ECG was recorded. Surface ECG ? PAGE 2 ? Signed Report ? (CONTINUED) ? leads and manual cuff blood pressure measurements were monitored. ? Heart sounds: Normal. ? Lung sounds: Normal. ? Regadenoson stress test. Stress testing was performed, with ? regadenoson by intravenous bolus, for a total dose of 0.4mgover ? 10.00sec, followed by a 5ml saline flush. The infusion was terminated ? due to per protocol. ? Study completion: ??All catheters inserted during the procedure were ? removed. The patient tolerated the procedure well and was discharged ? from the lab. ? Discharge: ??The patient left the laboratory in stable condition. ? Birthdate: ? Patient birthdate: 1945. ? Sex: ??Gender: female. ? Study date: 02/07/2016. ? Study time: 10:00 AM. ? Electronically signed by ? Darren Bailey MD ? 02/07/2016 11:52 ?Reported By: DARREN BAILEY M.D. ? CC: ? Transcribed Date/Time: 02/12/2016 (1616) ? Last Scourer: DARCI ? Printed Date/Time: 01/08/2019 (0527) ? PAGE 3 ? Signed Report ? Procedure Note Darren Bailey G - 06/02/2019 EXAM: NUCLEAR MEDICINE/NUCLEAR STRESS [place] EX. D/ (0919) CLINICAL INFORMATION: R06.09 EXERTIONAL DYSPNEA R53.83 OTHER FATIGUE *[facility]* *[facility]* [address] [place] [address] Myocardial Perfusion Imaging - SPECT Regadenoson Date of study: 02/07/2016 *PATIENT PRESENTATION* Height: 152.4cm ((60in) ) Blood Pressure: Weight: 77.3kg ((170lb) ) BSA: 1.84m S 2 Ordering physician: Amy Ramos Impressions: Normal perfusion by Tc99m Sestamibi Imaging. Summary: 1. Myocardial perfusion imaging: No myocardial perfusion defects noted. 2. The calculated left ventricular ejection fraction after stress: 75%. Indication: 786.05 Shortness of Breath. History: PAST 2 MONTHS, SOB NOTED WITH MINIMAL EXERTION OR WHEN BENDING OVER. PATIENT STATES SYMPTOMS ARE SOMEWHAT STABLE, NOT INCREASING IN FREQUENCY. NO C/O CHEST PAIN. SOME GENERALIZEDFATIGUE NOTED. 2006- CARDIAC CATH- STENT X 1 TO MID RCA. ( 65% LAD, 40%LCX AND 30% RCA LESIONS LEFT ALONE) Risk factors: Family history of coronary artery disease. Hypertension. Dyslipidemia. Cholesterol: 143mg/dl. HDL: 31mg/dl. LDL: 71mg/dl. Triglycerides: 207mg/dl. MEDS: ZESTRIL 40 MG, NEXIUM, ALLOPURINOL, CRESTOR 10 MG, TRAZODONE, DEMADEX 20 MG, METOPROLOL 25 MG, ASA 81 MG, EYE GTTS. ALLERGIES: DILAUDID, HYDROCODONE. PAGE 1 Signed Report (CONTINUED) Imaging Technique: Protocol: Regadenoson. Acquisition: Gated SPECT; 1 day - rest/stress. The patient was imaged in the supine position. Attenuation correction used. Isotope administration: - Rest. Tc[99m]-sestamibi. Injection to stress time: 00:45. - Stress. Tc[99m]-sestamibi. 1-2 min before end of exercise Baseline ECG: SINUSBRADY-57 BPM. Stress protocol: +--------+--+ + + !Stage !HR!BP (mmHg) !Comments ! +--------+--+ + + !Baseline!57!137/87 (104)! ! +--------+--+ + + !1 min !91! !Inject Regadenoson.! +--------+--+ + + !2 min !88!153/79 (104)! ! +--------+--+ + + !3 min !85! ! ! +--------+--+ + + !4 min !74!136/81 (99) ! ! +--------+--+ + + !5 min !74! ! ! +--------+--+ + + !6 min !73!141/78 (99) ! ! +--------+--+ + + !7 min !74! ! ! +--------+--+ + + * Stress results: The rate-pressure product for the peak heart rateand blood pressure was 63859xt Hg/min. Stress ECG: RESTING LEXISCAN STUDY RARE PVC NO CHEST PAIN T INVERSIONS 2,3,AVF,V2-V6. Myocardial perfusion: Imaging information: gated. No myocardial perfusion defects noted. Ventricular Function (Wall Motion): The calculated leftventricular ejection fraction after stress: 75%. Study data: Darren Bailey MD supervised and was readily available during the procedure. This study was interpreted by [facility]. Study status: Routine. Consent: The risks, benefits, and alternatives to the procedurewere explained to the patient and informed consent was obtained. Procedure: Initial setup. A baseline ECG was recorded. Surface ECG PAGE 2 Signed Report (CONTINUED) leads and manual cuff blood pressure measurements were monitored. Heart sounds: Normal. Lung sounds: Normal. Regadenoson stress test. Stress testing was performed, with regadenoson by intravenous bolus, for a total dose of 0.4mgover 10.00sec, followed by a 5ml saline flush. The infusion wasterminated due to per protocol. Study completion: All catheters inserted during the procedure were removed. The patient tolerated the procedure well and wasdischarged from the lab. Discharge: The patient left the laboratory in stable condition. Birthdate: Patient birthdate: 1945. Sex: Gender: female. Study date: 02/07/2016. Study time: 10:00 AM. Electronically signed by Darren Bailey MD 02/07/2016 11:52 Reported By: DARREN BAILEY M.D. CC: Transcribed Date/Time: 02/12/2016 (1616) Last Scourer: DARCI Printed Date/Time: 01/08/2019 (3194) PAGE 3 Signed Report us Amy Ramos DO CARDIAC NM ORDERABLES Final R esult documented in this encounter Visit Diagnoses Not on filedocumented in this encounter Care Teams Broach Setter Relationship Specialty Start Date End Date Rebecca Kumar MD PCP - General 04/24/09 07/23/16 Kaycee Cannon MD [address] [place] [phone] PCP - General 07/24/16 11/12/17 Jannette Perales NP [address] [place] [phone] PCP - General 11/13/17 documented as of this encounter
--- OUTSIDE RECORDS SUMMARY | 2024-07-09 00:18 | XMS_ITS | Encounter Summary ---
Author Organization [facility] Address [address] [place] [address] Care Team Providers Care Developer Trading Systems Name Role Phone Kaycee Cannon MD Primary Care Provid er Unavailable Reason for Visit * Reason Comments Hoarse x 6 months gradually getting worse coughing and throat clearing. no treatment. started with phleghm . * Consult (Routine) - Closed Specialty Diagnoses / Procedures Referred By Max page Referred To Contact Otolaryngology Diagnoses Hoarseness Kaycee Cannon MD Phone: tel: fax: Bharathi Camarena MD Phone: tel: fax: Referral ID Status Reason Start Date Expiration Date Visits Re quested Visits Authorized [id number] Closed 1 1 Encounter Details Date Type Department Care Team (Late st Contact Info) Description 07/24/2016 13:00 EST Office Visit [facility] - [address] [address] Bharathi Camarena MD [address] [place] [address] [address] [place] [address] Hoarseness (Primary Dx); Laryngeal edema; LPRD (laryngopharyngeal reflux disease) Social History Tobacco Use Types Packs/Day Years [...] Sign Reading Time Taken Comments Blood Pressure 136/98 07/24/2016 1309 EST Pulse 57 07/24/2016 1309 EST Temperature - - Respiratory Rate - - Oxygen Saturation - - Inhaled Oxygen Concentration - - Weight 77.1 kg (170 lb) 07/24/2016 1309 EST Height 152.4 cm (5') 07/24/2016 1309 EST Body Mass Index 33.2 07/24/2016 1309 EST documented in this encounter Progress Notes * Bharathi Camarena MD - 07/24/2016 1300 EST Kaycee Cannon MD Dear Dr Cannon: This is a consult from Kaycee Cannon for evaluation of hoarseness. History of Present Illness: This is a 70-year-old female with a 6-month history of throat clearing,cough, and occasional hoarseness. She feels increased mucus and phlegm, worse first thing in the morning. Symptoms are of mild to moderate severity, constant, with intermittent exacerbations. No known modifying factors or other associated signs or symptoms. No treatment. Past medical history is significant for heartburn and hypertension. She is on Nexium and lisinopril. Past medical history is also significant for cancer, cerebral artery occlusion, and sleep apnea. Previous surgeries include tonsillectomy and carotid artery stenting. Family History: Significant for heart disease, cancer, migraines. Social History: The patient is a nonsmoker. She has drug allergies to DILAUDID, HYDROCODONE, OXYCODONE and PROPINE. Current medications include Tylenol, allopurinol, aspirin, Azopt ophthalmic, Nexium 40 mg, ibuprofen, Xalatan ophthalmic, lisinopril, Lopressor, Crestor, Timoptic, demodex, and trazodone. Review of Systems: Significant for cough, shortness of breath, ankle swelling, joint pain, bruising, nosebleeds, hoarseness, reflux, heartburn. Otherwise, negative for complete review of all systems. Physical Exam: General: Well-developed, well-nourished, alert, oriented, cooperative adult female in no acute distress. Normal voice. Vital signs: Height 60 inches, weight 170, blood pressure 136/98,pulse 57. No reportable pain. The face is normal without lesions. No tenderness to palpation. Salivary glands are normal. Facial strength is symmetric. Eye exam is normal. Ears: External ears are normal. Canals are clear. The tympanic membranes are normal. Hearing is intact. Nose: Nasal dorsum is midline, the airway is patent. Oral cavity: Lips, tongue, floor of mouth and buccal mucosa within normal limits. Posterior pharynx is clear. Neck: No pathologic lymphadenopathy. Trachea is midline. Thyroid is normal. Chest is clear to auscultation. Heart: Regular rate and rhythm. Procedure: Fiberoptic laryngoscopy was performed with topical anesthesia. No evidence of nasal polyps or purulence. The right middle meatus is clear. The nasopharynx is clear. The base of tongue, epiglottis, vallecula, piriform sinuses, and false vocal cords are within normal limits. There is mild bilateral true vocal cord edema, but no cysts, polyps, nodules or tumor. There is posterior laryngeal edema of the posterior larynx and interarytenoid area consistent with laryngopharyngeal reflux disease. Impression: Cough, hoarseness, throat clearing, posterior laryngeal edema consistent with laryngopharyngeal reflux. Plan: LPR instructions were given to the patient and discussed in detail. May consider increasing proton pump inhibitor to 40 mg b.i.d. for several months. Adding on an H2 aneesh, antacids, Gavisconmay also be an option. Follow up with ENT p.r.n. Sincerely, documented in this encounter Plan of Treatment Not on file documented as of this encounter Visit Diagnoses Diagnosis Hoarseness- Primary Dysphonia Laryngeal edema Edema of larynx LPRD (laryngopharyngeal reflux disease) Other diseases of larynx documented in this encounter Historical Medications * This list may reflect changes made after this encounter. brinzolamide (AZOPT) 1 % ophthalmic suspension Place 1 Drop into both eyes 2 times daily. timolol (TIMOPTIC) 0.25 % ophthalmic solution Place 1 Drop into both eyes 2 times daily. 08/12/2019 aspirin chewable 81 mg tablet Take 81 mg by mouth daily. 08/12/2019 acetaminophen (TYLENOL) 500 mg tablet Take 500 mg by mouth every 6 hours as needed for Pain. 06/14/2019 acetaminophen (TYLENOL) 325 mg tablet Take 500 mg by mouth every 4 hours as needed for Pain. 11/26/2017 LATANOPROST (XALATAN OPHTHALMIC) Apply to eye. 06/14/2019 ibuprofen (MOTRIN) 800 mg tablet Take 800 mg by mouth every 6 hours as needed for Pain. 11/26/2017 allopurinol (ZYLOPRIM) 100 mg tablet Take 100 mg by mouth daily. 06/18/2019 esomeprazole (NEXIUM) 40 mg capsule Take 40 mg by mouth every morning before breakfast. 11/26/2017 lisinopril (ZESTRIL) 40 mg tablet Take 40 mg by mouth daily. 06/14/2019 metoprolol (LOPRESSOR) 25 mg tablet Take 25 mg by mouth 2 times daily. 08/12/2019 torsemide (DEMADEX) 20 mg tablet Take 20 mg by mouth daily. 06/18/2019 traZODone (DESYREL) 150 mg tablet Take 100 mg by mouth at bedtime. 06/14/2019 rosuvastatin (CRESTOR) 10 mg tablet Take 10 mg by mouth at bedtime. 06/14/2019 added in this encounter Care Teams Developer Trading Systems Relationship Specialty Start Date End Date Kaycee Cannon MD [address] [place] [phone] PCP - General 07/24/16 11/12/17 documented as of this encounter
--- OUTSIDE RECORDS SUMMARY | 2024-07-09 00:18 | XMS_ITS | Encounter Summary ---
Author Organization [facility] Address [facility] [place] [address] Care Team Providers Care Marine Technician Name Role Phone Jannette Perales APRN Primary Care Provider [phone] Encounter Details Date Type Department Care Team (Latest Contact Info) Description 11/25/2023 Travel Social History Tobacco Use Types Packs/Day [...] 9:45 AM EDT Office [place] [address] Augustine Regan MD [facility] [place] [address] documented as of this encounter Visit Diagnoses Not on filedocumented in this encounter Care Teams Marine Technician Relationship Specialty Start Date End Date Jannette Perales APRN PCP - General General Internal Medicine 08/18/17 documented as of this encounter
--- OUTSIDE RECORDS SUMMARY | 2024-07-09 00:18 | XMS_ITS | Encounter Summary ---
Author Organization [facility] Address [address] [place] [address] Care Team Providers Care Central Supply Manager Name Role Phone Rebecca Kumar MD Primary Care Provider Unavailab le Encounter Details Date Type Department Care Team (Latest Contact Info) Description 06/30/2015 8:19 EST - 06/30/2015 23:59 EST Hospital Encounter [facility] [address] [place] [address] Unknown, Provider, MD Discharge Disposition: Home or [...] Code Departure Means Destination Home or Self Senior Living documented in this encounter Plan of Treatment Not on file documented as of this encounter Visit Diagnoses Not on filedocumented in this encounter Care Teams Central Supply Manager Relationship Specialty Start Date End Date Rebecca Kumar MD PCP - General 04/24/09 07/23/16 documented as of this encounter
--- OUTSIDE RECORDS SUMMARY | 2024-07-09 00:18 | XMS_ITS | Encounter Summary ---
Author Organization [facility] Address [address] [place] [address] Care Team Providers Care Reimbursement Liaison Name Role Phone Rebecca Kumar MD Primary Care Provider Unavailab Kaycee Wayne MD Primary Care Provid er Unavailable Jannette Perales NP Primary Care Provider [phone] Encounter Details Date Type Department Care Team (Late st Contact Info) Description 06/30/2015 Historical Results Only [facility] Results [address] [place] [address] Amy Ramos, DO [address] [place] [address] Social History Tobacco Use Types [...] Diagnosis Comments MA BREAST SCREENING MICHAEL RIGHT 06/30/2015 11:06 EST documented in this encounter Results * MA BREAST SCREENING MICHAEL RIGHT (06/30/2015 11:06 EST) Anatomical Region Laterality Modality Breast Right Other 06/30/2015 11:0 6 EST Narrative 07/03/2015 9:18 EST ? EXAM: MAMMOGRAM/MAMMO RIGHT SCREEN W MICHAEL EX. D/ (1106) ? CLINICAL INFORMATION: ? Z12.31 SCREENING MAMMO, RIGHT SCREEN, LEFT ? MASTECTOMY ? TECHNIQUE: ??Full field digital whole breast 2D (C-view) and 3D CC and ? MLO views of the right breast were obtained. CAD technology was ? utilized. ? INDICATION: ??Screening ? FINDINGS: ??The fibroglandular pattern of the right breast is normal. ? There has been no change when compared to previous mammograms and ? there is no mammographic evidence of cancer. ? FINAL ASSESSMENT: ??RIGHT BREAST - Category 1 - Negative. Routine ?mammographic follow-up is recommended. ? These results will be communicated to your patient via a lay letter ? from Radiology. ??If any additional imaging is needed we will contact ? your patient directly. ? SNR:kad ? REPORT ELECTRONICALLY SIGNED 07/10/2015 (1540) ?Reported By: Mohamud Nunez MD ?Signed By: ?? Mohamud Nunez ? CC: ? Transcribed Date/Time: 07/03/2015 (0918) ? Merchandise Flow Team Member: DARCI ? Printed Date/Time: 01/06/2019 (1554) ? PAGE 1 ? Signed Report ? Procedure Note Mohamud Nunez MD - 06/02/2019 EXAM: MAMMOGRAM/MAMMO RIGHT SCREEN W MICHAEL EX. D/ (1106) CLINICAL INFORMATION: Z12.31 SCREENING MAMMO, RIGHT SCREEN, LEFT MASTECTOMY TECHNIQUE: Full field digital whole breast 2D (C-view) and 3D CCand MLO views of the right breast were obtained. CAD technology was utilized. INDICATION: Screening FINDINGS: The fibroglandular pattern of the right breast isnormal. There has been no change when compared to previous mammograms and there is no mammographic evidence of cancer. FINAL ASSESSMENT: RIGHT BREAST - Category 1 - Negative. Routine mammographic follow-up is recommended. These results will be communicated to your patient via a lay letter from Radiology. If any additional imaging is needed we willcontact your patient directly. SNR:kad REPORT ELECTRONICALLY SIGNED 07/10/2015 (1540) Reported By: Mohamud Nunez MD Signed By: Mohamud Nunez CC: Transcribed Date/Time: 07/03/2015 (0918) Merchandise Flow Team Member: DARCI Printed Date/Time: 01/06/2019 (1158) PAGE 1 Signed Report us Amy Ramos DO IMG MAMMOGRAPHY ORDERABLES Fi nal Result documented in this encounter Visit Diagnoses Not on filedocumented in this encounter Care Teams Reimbursement Liaison Relationship Specialty Start Date End Date Rebecca Kumar MD PCP - General 04/24/09 07/23/16 Kaycee Cannon MD [address] [place] [phone] PCP - General 07/24/16 11/12/17 Jannette Perales NP [address] [place] [phone] PCP - General 11/13/17 documented as of this encounter
--- OUTSIDE RECORDS SUMMARY | 2024-07-09 00:18 | XMS_ITS | Encounter Summary ---
Author Organization [facility] Address [facility] [place] [address] Care Team Providers Care Seamless Hosiery Knitter Name Role Phone Jannette Perales DANE Primary Care Provider [phone] Reason for Visit * Reason Comments Medication Refill Encounter Details Date Type Department Care Team (Late Contact Info) Description 04/08/2024 [place] [phone] Augustine Regan MD [facility] [place] [address] Pigmentary glaucoma of both eyes, moderate stage [...] 9:45 AM EDT [place] [phone] Augustine Regan MD [facility] [place] [address] documented as of this encounter Visit Diagnoses Diagnosis Pigmentary glaucoma of both eyes, moderate stage Pigmentary open-angle glaucoma documented in this encounter Care Teams Seamless Hosiery Knitter Relationship Specialty Start Date End Date Jannette Perales APRN PCP - General General Internal Medicine 08/18/17 documented as of this encounter
--- OUTSIDE RECORDS SUMMARY | 2024-07-09 00:18 | XMS_ITS | Encounter Summary ---
Author Organization [facility] Address [address] [place] [address] Care Team Providers Care Repair Welder Name Role Phone Jannette Perales NP Primary Care Provider [phone] Reason for Visit * Reason Onset Date Comments Appointment Related 12/01/2017 Encounter Details Date Type Department Care Team (Late st Contact Info) Description 12/01/2017 Telephone [facility] General Surgery - [address] [address] Alejandro Calloway MD [address] [place] [address], [address] [place] [address] Appointment Related Social History Tobacco Use Types Packs/Day Years [...] encounter Miscellaneous Notes * Telephone Encounter - Rosalie Morales - 12/01/2017 1129 EDT Check in 12/03 at 8:00 am nothing to eat after midnight, 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
--- OUTSIDE RECORDS SUMMARY | 2024-07-09 00:18 | XMS_ITS | Encounter Summary ---
Author Organization [facility] Address [facility] [address] Care Team Providers Care Educational Psychology Teacher Name Role Phone Jannette Perales APRN Primary Care Provider [phone] Encounter Details Date Type Department Care Team (Latest Contact Info) Description 05/21/2024 Travel Social History Tobacco Use Types Packs/Day [...] 9:45 AM EDT Office [place] [address] Augustine Regan MD [facility] [place] [address] documented as of this encounter Visit Diagnoses Not on filedocumented in this encounter Care Teams Educational Psychology Teacher Relationship Specialty Start Date End Date Jannette Perales APRN PCP - General General Internal Medicine 08/18/17 documented as of this encounter
--- OUTSIDE RECORDS SUMMARY | 2024-07-09 00:18 | XMS_ITS | Encounter Summary ---
Author Organization [facility] [place] [address] Care Team Providers Care Systems Software Developer Name Role Phone Jannette Perales MAPPING ANALYST Primary Care Provider [phone] Reason for Visit * Reason Comments Pigmentary Glaucoma OU Encounter Details Date Type Department Care Team (Late st Contact Info) Description 11/25/2023 3:45 PM EDT [place] [address] Augustine Regan MD [facility] [place] [address] Pigmentary glaucoma of both eyes, moderate stage; [...] Progress Notes * Augustine Regan MD - 11/25/2023 3:45 PM EDT Pigmentary glaucoma OU: IOP doing well Plan: Continue current meds in both eyes: Azopt 2x/day Timolol 1x/day Latanoprost at night Return to clinic: 6 months Upon return: EPF, IOP Dil, OCT, HVF documented in this encounter Plan of Treatment Upcoming Encounters Date Type Department Care Team (Late st Contact Info) Description 11/19/2024 9:45 AM EDT Office [place] [address] Augustine Regan MD [facility] [place] [address] documented as of this encounter Visit Diagnoses Diagnosis Pigmentary glaucoma of both eyes, moderate stage Pigmentary open-angle glaucoma Pseudophakia of both eyes Lens replaced by other means documented in this encounter Care Teams Systems Software Developer Relationship Specialty Start Date End Date Jannette Perales APRN PCP - General General Internal Medicine 08/18/17 documented as of this encounter
--- OUTSIDE RECORDS SUMMARY | 2024-07-09 00:18 | XMS_ITS | Encounter Summary ---
Author Organization [facility] Address [address] [place] [address] Care Team Providers Care Back Order Clerk Name Role Phone Rebecca Kumar MD Primary Care Provider Unavailab le Encounter Details Date Type Department Care Team (Latest Contact Info) Description 04/24/2009 15:37 EDT - 04/24/2009 23:59 EDT Hospital Encounter [facility] [place] [phone] Unknown, Provider, Discharge Disposition: Home or Self Care Social [...] Code Departure Means Destination Home or Self Longterm documented in this encounter Plan of Treatment Not on file documented as of this encounter Procedures Procedure Name Priority Date/Time Associated Diagnosis Comments XR KNEE SIMON STAND [id number] 04/24/2009 17:14 EDT documented in this encounter Results * XR KNEE SIMON STAND [id number] (04/24/2009 17:14 EDT) Anatomical Region Laterality Modality Other 04/24/2009 17:1 4 EDT 04/25/2009 14:10 EDT Narrative 04/25/2009 14:10 EDT XR KNEE SIMON STAND [id number] ??Apr 24, 2009 05:14:00 PM Signs and Symptoms/Comments: ??RIGHT KNEE PAIN W OA COMPARE TO LEFT Comparison: None. Findings: 2 views of the right knee and 2 views of the left knee were obtained. There is moderate degenerative change in the right knee with marginal osteophytes. There are mild degenerative changes appreciated in the left knee. There is no significant joint effusion. ?? There is a calcification adjacent to the anterior tibia appreciated on the lateral view of the right knee that presumably represents an osteophyte. Impression: 1. Bilateral osteoarthritis of the knees; right greater than left. I have personally reviewed the images and the above interpretation and agree with the findings. Procedure Note Booker Pena MD / Booker Pena MD / Booker Pena MD - 04/25/2009 XR KNEE SIMON STAND [id number] Apr 24, 2009 05:14:00 PM Signs and Symptoms/Comments: RIGHT KNEE PAIN W OA COMPARE TO LEFT Comparison: None. Findings: 2 views of the right knee and 2 views of the left knee were obtained. There is moderate degenerative change in the right knee with marginal osteophytes. There are mild degenerative changes appreciated in the left knee. There is no significant joint effusion. There is a calcification adjacent to the anterior tibia appreciated on the lateral view of the right knee that presumably represents an osteophyte. Impression: 1. Bilateral osteoarthritis of the knees; right greater than left. I have personally reviewed the images and the above interpretation and agree with the findings. us Tammy Peralta MD IMG DIAGNOSTIC IMAGING ORDERA BLES Final Result documented in this encounter Visit Diagnoses Not on filedocumented in this encounter Care Teams Back Order Clerk Relationship Specialty Start Date End Date Rebecca Kumar MD PCP - General 04/24/09 07/23/16 documented as of this encounter
--- OUTSIDE RECORDS SUMMARY | 2024-07-09 00:18 | XMS_ITS | Encounter Summary ---
Author Organization [facility] Address [facility] [place] [address] Care Team Providers Care Spike Maker Name Role Phone Jannette Perales DANE Primary Care Provider [phone] Encounter Details Date Type Department Care Team (Late st Contact Info) Description 03/12/2022 Telephone [place] [phone] Augustine Regan MD [facility] [place] [address] Social History Tobacco Use Types Packs/Day Years [...] encounter Miscellaneous Notes * Telephone Encounter - Julia Reyna - 03/12/2022 1:15 PM EDT [facility] from [employer] called stating the pharmacy has changed to a new supplier and can still get brand name Azopt for pt, but it will be through a new animal skinner. Pharmacy wants to confirm that brand name Azopt by a different animal skinner will be ok to dispense as rx specifies pt needs brand name documented in this encounter Plan of Treatment Upcoming Encounters Date Type Department Care Team (Late st Contact Info) Description 11/19/2024 9:45 AM EDT Office Visit [place] [address] Augustine Regan MD [facility] [place] [address] documented as of this encounter Visit Diagnoses Not on filedocumented in this encounter Care Teams Spike Maker Relationship Specialty Start Date End Date Jannette Perales APRN PCP - General General Internal Medicine 08/18/17 documented as of this encounter
--- OUTSIDE RECORDS SUMMARY | 2024-07-09 00:18 | XMS_ITS | Encounter Summary ---
Author Organization [facility] Address [facility] [place] [address] Care Team Providers Care Banking Analyst Name Role Phone Jannette Perales APRN Primary Care Provider [phone] Encounter Details Date Type Department Care Team (Latest Contact Info) Description 05/23/2023 Travel Social History Tobacco Use Types Packs/Day [...] 9:45 AM EDT Office [place] [address] Augustine Regan MD [facility] [place] [address] documented as of this encounter Visit Diagnoses Not on filedocumented in this encounter Care Teams Banking Analyst Relationship Specialty Start Date End Date Jannette Perales APRN PCP - General General Internal Medicine 08/18/17 documented as of this encounter
--- OUTSIDE RECORDS SUMMARY | 2024-07-09 00:18 | XMS_ITS | Encounter Summary ---
Author Organization [facility] Address [address] [place] [address] Care Team Providers Care Pharmacy Services Representative Name Role Phone Rebecca Kumar MD Primary Care Provider Unavailab Kaycee Wayne MD Primary Care Provid er Unavailable Jannette Perales NP Primary Care Provider [phone] Encounter Details Date Type Department Care Team (Late st Contact Info) Description 07/02/2016 Historical Results Only [facility] - Main [address] [address] Kaycee Cannon MD 1 [facility] 1 [place] [phone] Social History Tobacco Use Types Packs/Day Years [...] Procedure Name Priority Date/Time Associated Diagnosis Comments URIC ACID Routine 07/02/2016 9:13 EST HEMOGLOBIN A1C Routine 07/02/2016 9:13 EST LIPID PROFILE (INCLUDES CHOLESTEROL, TRIGLYCERIDES, HDL, LDL) Routine 07/02/2016 9:13 EST COMPREHENSIVE METABOLIC PANEL (CMP) Routine 07/02/2016 9:13 EST documented in this encounter Results * URIC ACID (07/02/2016 9:13 EST) URIC ACID - [facility] 4.6 2.6 - 7.2 mg/dl 07/02/2016 10:14 [facility] 07/02/2016 9:13 EST 07/02/2016 9:13 EST Narrative [facility] - 07/02/2016 10:14 EST Does PT Have a Latex Allergy? NO us Kaycee Cannon MD CHEMISTRY & BLOOD GA S ORDERABLES Final Result [facility] * (ABNORMAL) LIPID PROFILE (INCLUDES CHOLESTEROL, TRIGLYCERIDES, HDL, LDL) (07/02/2016 9:13 EST) Pathologist [facility] Triglyceride 302(H) 35 - 150 mg/dL 07/02/2016 10:14 [facility] Cholesterol 158 120 - 200 mg/dL 07/02/2016 10:14 [facility] Chol/HDL Ratio 3.9 0 - 4.5 07/02/2016 10:14 [facility] Comment: DESIRABLE RATIO IS LESS THAN 4.1 PATIENTS ARE CONSIDERED AT RISK: WOMEN RATIO >5 MEN RATIO >6 FASTING? - [facility] Yes 6 9:14 [facility] HDL 40 40 - 60 mg/dL 07/02/2016 10:14 [facility] LDL CHOLESTEROL - [facility] 58(L) 60 - 100 mg/dL 07/02/2016 10:14 [facility] Non HDL Cholesterol 118 mg/dl 07/02/2016 10:14 [facility] Comment: Desirable: ?Less than 130 Borderline High: ??130-159 High: ? 160-189 Very High: ?Greater than or equal to 190 07/02/2016 9:13 EST 07/02/2016 9:13 EST Narrative [facility] - 07/02/2016 10:14 EST Does PT Have a Latex Allergy? NO us Kaycee Cannon MD CHEMISTRY & BLOOD GA S ORDERABLES Final Result [facility] * (ABNORMAL) COMPREHENSIVE METABOLIC PANEL (CMP) (07/02/2016 9:[address] [facility]) Albumin % 3.9 3.4 - 5.0 g/dL 07/02/2016 10:14 [facility] ALKALINE PHOSPHATASE - [facility] 57 41 - 126 U/L 07/02/2016 10:14 [facility] BILIRUBIN TOTAL 0.3 0.0 - 1.0 mg/dL 07/02/2016 10:14 [facility] BUN - [facility] 22(H) 7 - 18 mg/dL 07/02/2016 10:14 [facility] CALCIUM - [facility] 8.5 8.5 - 10.1 mg/dL 07/02/2016 10:14 [facility] Chloride 105 98 - 107 mEq/L 07/02/2016 10:14 [facility] CO2 Total 23 21 - 32 mEq/L 07/02/2016 10:14 [facility] CREATININE 1.08 0.5 - 1.3 mg/dL 07/02/2016 10:14 [facility] eGFR 50 07/02/2016 10:14 [facility] Comment: Stage 3: Moderate renal impairment is defined as GFR 30-59 Multiply result by 1.210 for patients. eGFR calculated using the IDMS-traceable MDRD Study Equation. ??(effective 05/30/2014) Anion Gap 10 5 - 15 07/02/2016 10:14 [facility] GLUCOSE - [facility] 100 70 - 100 mg/dL 07/02/2016 10:14 [facility] Potassium 4.3 3.5 - 5.0 mEq/L 07/02/2016 10:14 [facility] Sodium 138 135 - 145 mEq/L 07/02/2016 10:14 [facility] TOTAL PROTEIN - [facility] 6.8 6.4 - 8.2 gm/dl 07/02/2016 10:14 [facility] SGOT/AST - [facility] 18 10 - 37 U/L 07/02/2016 10:14 EST [facility] SGPT/ALT - [facility] 27 12 - 78 U/L 07/02/2016 10:14 EST [facility] 07/02/2016 9:13 EST 07/02/2016 9:13 EST Narrative [facility] - 07/02/2016 10:14 EST Does PT Have a Latex Allergy? NO us Kaycee Cannon MD CHEMISTRY & BLOOD GA S ORDERABLES Final Result [facility] * (ABNORMAL) HEMOGLOBIN A1C (07/02/2016 9:13 EST) Hemoglobin A1c 6.2(H) 4.0 - 6.0 % 07/02/2016 11:57 EST [facility] Est Avg Glucose 131 mg/dL 6 11:57 EST [facility] 07/02/2016 9:13 EST 07/02/2016 9:13 EST Narrative [facility] - 07/02/2016 11:57 EST Does PT Have a Latex Allergy? NO us Kaycee Cannon MD CHEMISTRY & BLOOD GA S ORDERABLES Final Result [facility] documented in this encounter Visit Diagnoses Not on filedocumented in this encounter Care Teams Pharmacy Services Representative Relationship Specialty Start Date End Date Rebecca Kumar MD PCP - General 04/24/09 07/23/16 Kaycee Cannon MD [address] [place] [phone] PCP - General 07/24/16 11/12/17 Jannette Perales NP [address] [place] [phone] PCP - General 11/13/17 documented as of this encounter
--- OUTSIDE RECORDS SUMMARY | 2024-07-09 00:18 | XMS_ITS | Encounter Summary ---
Author Organization [facility] [address] Care Team Providers Care Rn Field Case Manager Name Role Phone Jannette Perales ROCK WOOL APPLICATOR Primary Care Provider [phone] Reason for Visit * Reason Comments Glaucoma Encounter Details Date Type Department Care Team (Late st Contact Info) Description 11/15/2021 2:00 PM EDT Office [place] [address] Augustine Regan MD [facility] [place] [address] Pigmentary glaucoma of both eyes, moderate stage [...] Progress Notes * Augustine Regan MD - 11/15/2021 2:00 PM EDT Pigmentary glaucoma OU: IOP doing well HVF stable Plan: Continue current meds: Azopt both eyes 2 times daily, Timolol gel both eyes daily, Latanoprost both eyes nightly Return to clinic: 6 months Upon return: EPF, IOP, dilate, OCT documented in this encounter Plan of Treatment Upcoming Encounters Date Type Department Care Team (Late st Contact Info) Description 11/19/2024 9:45 AM EDT Office [place] [address] Augustine Regan MD [facility] [place] [address] documented as of this encounter Procedures Procedure Name Priority Date/Time Associated Diagnosis Comments AUTOMATED VISUAL FIELD - EXTENDED - OU- BOTH EYES Routine 11/15/2021 3:24 PM EDT Pigmentary glaucoma of both eyes, moderate stage documented in this encounter Results * Automated Visual Field - Extended - OU - Both Eyes (11/15/2021 3:24 PM EDT) Anatomical Region Laterality Modality Other Narrative 11/15/2021 3:24 PM EDT Right Eye Threshold was 24-2. Strategy was KENNY. Reliability was good. Progression has been stable. Left Eye Threshold was 24-2. Strategy was KENNY. Reliability was good. Progression has been stable. Notes Visual Field Results Type of VF: ??HVF 24-2 Indication: ??Pigmentary glaucoma OU Reliability: ??good Glaucoma Hemifield Test (GHT) OD: outside normal limits OS: outside normal limits Visual Function Index (VFI) OD: 75 % OS: 63 % MD OD: -8.85 dB ? PSD OD: 11.06 dB MD OS: -12.39 dB PSD OS: 12.89 dB Interpretation: no progression detected OD:sup,inf paracentral, inf ns OS: Sup paracentral, sup ns, inf arc Augustine Regan MD [facility] ORDER[facility]LES documented in this encounter Visit Diagnoses Diagnosis Pigmentary glaucoma of both eyes, moderate stage Pigmentary open-angle glaucoma documented in this encounter Care Teams Rn Field Case Manager Relationship Specialty Start Date End Date Jannette Perales APRN PCP - General General Internal Medicine 08/18/17 documented as of this encounter
--- OUTSIDE RECORDS SUMMARY | 2024-07-09 00:18 | XMS_ITS | Encounter Summary ---
Author Organization [facility] Address [facility] [place] [address] Care Team Providers Care Agriculture Professor Name Role Phone Jannette Perales DANE Primary Care Provider [phone] Reason for Visit * Reason Comments Medication Refill Encounter Details Date Type Department Care Team (Late Contact Info) Description 05/31/2024 Refill [place] [phone] Augustine Regan MD [facility] [place] [address] Pigmentary glaucoma of both eyes, moderate stage [...] 9:45 AM EDT Office [place] [phone] Augustine Regan MD [facility] [place] [address] documented as of this encounter Visit Diagnoses Diagnosis Pigmentary glaucoma of both eyes, moderate stage Pigmentary open-angle glaucoma documented in this encounter Care Teams Agriculture Professor Relationship Specialty Start Date End Date Jannette Perales APRN PCP - General General Internal Medicine 08/18/17 documented as of this encounter
--- OUTSIDE RECORDS SUMMARY | 2024-07-09 00:18 | XMS_ITS | Encounter Summary ---
Author Organization [facility] Address [address] [place] [address] Care Team Providers Care Pharmacy Informatics Manager Name Role Phone Kaycee Cannon MD Primary Care Provid er Unavailable Jannette Perales NP Primary Care Provider [phone] Encounter Details Date Type Department Care Team (Late st Contact Info) Description 02/17/2017 Historical Results Only [facility] Radiology Results [address] [place], [place] [address] Kaycee Cannon MD 1 [facility] Level 1 [place] [address] Social History Tobacco Use Types [...] Diagnosis Comments MA BREAST SCREENING MICHAEL RIGHT 02/17/2017 8:53 EDT documented in this encounter Results * MA BREAST SCREENING MICHAEL RIGHT (02/17/2017 8:53 EDT) Anatomical Region Laterality Modality Breast Right Other 02/17/2017 8:53 EDT Narrative 02/17/2017 8:53 EDT ? EXAM: MAMMOGRAM/MAMMO RIGHT SCREEN W MICHAEL EX. D/ (0830) ? CLINICAL INFORMATION: ? Z12.39,SCREENING AMEYA ? TECHNIQUE: ??Full field digital whole breast 2D (C-view) and 3D CC and ? MLO views of both breasts were obtained. CAD technology was utilized. ? FINDINGS: ??The fibroglandular patterns of the breasts are normal. ? There has been no change when compared to previous mammograms and ? there is no mammographic evidence of cancer. The breast tissue is of ? scattered density. ? FINAL ASSESSMENT: ??BILATERAL BREAST - Category 1 - Negative. Routine ? mammographic follow-up is recommended. ? These results will be communicated to your patient via a lay letter ? from Radiology. ??If any additional imaging is needed we will contact ? your patient directly. ? REPORT SIGNED IN OTHER VENDOR SYSTEM 02/17/2017 ?Reported By: Mohamud Nunez MD ? CC: ? Transcribed Date/Time: 02/17/2017 (0853) ? Oncologist: ? Printed Date/Time: 01/11/2019 (1754) ? PAGE 1 ? Signed Report ? Procedure Note Mohamud Nunez MD - 06/02/2019 EXAM: MAMMOGRAM/MAMMO RIGHT SCREEN W MICHAEL EX. D/ (0830) CLINICAL INFORMATION: Z12.39,SCREENING AMEYA TECHNIQUE: Full field digital whole breast 2D (C-view) and 3D CCand MLO views of both breasts were obtained. CAD technology wasutilized. FINDINGS: The fibroglandular patterns of the breasts are normal. There has been no change when compared to previous mammograms and there is no mammographic evidence of cancer. The breast tissue isof scattered density. FINAL ASSESSMENT: BILATERAL BREAST - Category 1 - Negative.Routine mammographic follow-up is recommended. These results will be communicated to your patient via a lay letter from Radiology. If any additional imaging is needed we willcontact your patient directly. REPORT SIGNED IN OTHER VENDOR SYSTEM 02/17/2017 Reported By: Mohamud Nunez MD CC: Transcribed Date/Time: 02/17/2017 (0853) Oncologist: Printed Date/Time: 01/11/2019 (1756) PAGE 1 Signed Report Kaycee Cannon MD IMG MAMMOGRAPHY ALEX HANEY Final Result documented in this encounter Visit Diagnoses Not on filedocumented in this encounter Care Teams Pharmacy Informatics Manager Relationship Specialty Start Date End Date Kaycee Cannon MD [address] [place] [phone] PCP - General 07/24/16 11/12/17 Jannette Perales NP [address] [place] [phone] PCP - General 11/13/17 documented as of this encounter
--- OUTSIDE RECORDS SUMMARY | 2024-07-09 00:18 | XMS_ITS | Encounter Summary ---
Author Organization [facility] Address [address] [place] [address] Care Team Providers Care Balloon Design Printer Name Role Phone Kaycee Cannon MD Primary Care Provid er Unavailable Jannette Perales NP Primary Care Provider [phone] Encounter Details Date Type Department Care Team (Late st Contact Info) Description 02/14/2017 Historical Results Only [facility] Radiology Results [address] [place], [place] [address] Kaycee Cannon MD [address] [address] Social History Tobacco Use Types Packs/Day [...] on filedocumented in this encounter Care Teams Balloon Design Printer Relationship Specialty Start Date End Date Kaycee Cannon MD [address] [place] [address] PCP - General 07/24/16 11/12/17 Jannette Perales NP [address] [place] [phone] PCP - General 11/13/17 documented as of this encounter
--- OUTSIDE RECORDS SUMMARY | 2024-07-09 00:18 | XMS_ITS | Encounter Summary ---
Author Organization [facility] Address [address] [place] [address] Care Team Providers Care Technician Preventative Medicine Name Role Phone Rebecca Kumar MD Primary Care Provider Unavailab Kaycee Wayne MD Primary Care Provid er Unavailable Jannette Perales NP Primary Care Provider [phone] Encounter Details Date Type Department Care Team (Late st Contact Info) Description 06/29/2014 Historical Results Only [facility] [place] Radiology Results [address] [place] [address] Amy Ramos, DO [address] [place] [address] Social History Tobacco Use Types [...] Date/Time Associated Diagnosis Comments MA BREAST SCREENING RIGHT 06/29/2014 8:17 EST documented in this encounter Results * MA BREAST SCREENING RIGHT (06/29/2014 8:17 EST) Anatomical Region Laterality Modality Breast Right Other 06/29/2014 8:17 EST Narrative 07/01/2014 15:58 EST ? EXAM: MAMMOGRAM/DIGITAL MAMMO SCREENING R EX. D/ (0817) ? CLINICAL INFORMATION: ? RIGHT SCREENING, LEFT MASTECTOMY, HX LT BR CA ? COMPARISON: 2007; 2008; 2009; 2010; 2011; 2013 ? TECHNIQUE: ??Full field digital whole breast 2D and 3D CC and MLO views ? of the right breast were obtained. CAD technology was utilized. ? INDICATION: ??Screening ? FINDINGS: ??The fibroglandular pattern of the right breast is normal. ? There has been no change when compared to previous mammograms and ? there is no mammographic evidence of cancer. The breast is of ? scattered density. ? FINAL ASSESSMENT: ??RIGHT BREAST - Category 1 - Negative. Routine ?mammographic follow-up is recommended. ? UX DESIGN MANAGER:kad ? REPORT ELECTRONICALLY SIGNED 07/02/2014 (1373) ?Reported By: Chuy Mantilla MD ?Signed By: ?? Chuy Mantilla ? CC: ? Transcribed Date/Time: 07/01/2014 (1558) ? Felt Checker: DARCI ? Printed Date/Time: 12/28/2018 (3915) ? PAGE 1 ? Signed Report ? Procedure Note Chuy Mantilla MD - 06/01/2019 EXAM: MAMMOGRAM/DIGITAL MAMMO SCREENING R EX. D/ (0817) CLINICAL INFORMATION: RIGHT SCREENING, LEFT MASTECTOMY, HX LT BR CA COMPARISON: 2007; 2008; 2009; 2010; 2011; 2013 TECHNIQUE: Full field digital whole breast 2D and 3D CC and MLOviews of the right breast were obtained. CAD technology was utilized. INDICATION: Screening FINDINGS: The fibroglandular pattern of the right breast isnormal. There has been no change when compared to previous mammograms and there is no mammographic evidence of cancer. The breast is of scattered density. FINAL ASSESSMENT: RIGHT BREAST - Category 1 - Negative. Routine mammographic follow-up is recommended. UX DESIGN MANAGER:anjana REPORT ELECTRONICALLY SIGNED 07/02/2014 (2404) Reported By: Chuy Mantilla MD Signed By: Chuy Mantilla CC: Transcribed Date/Time: 07/01/2014 (4200) Felt Checker: DARCI Printed Date/Time: 12/28/2018 (3570) PAGE 1 Signed Report Amy Ramos DO IMG MAMMOGRAPHY ORDERABLES Fi nal Result documented in this encounter Visit Diagnoses Not on filedocumented in this encounter Care Teams Technician Preventative Medicine Relationship Specialty Start Date End Date Rebecca Kumar MD PCP - General 04/24/09 07/23/16 Kaycee Cannon MD [address] [place] [phone] PCP - General 07/24/16 11/12/17 Jannette Perales NP [address] [place] [phone] PCP - General 11/13/17 documented as of this encounter
--- OUTSIDE RECORDS SUMMARY | 2024-07-09 00:18 | XMS_ITS | Encounter Summary ---
Author Organization [place] [address] Care Team Providers Care Java Lead Engineer Name Role Phone Jnanette Perales DANE Primary Care Provider [phone] Reason for Visit * Reason Comments Pigmentary Glaucoma bilateral Encounter Details Date Type Department Care Team (Late st Contact Info) Description 05/21/2024 9:45 AM EDT [place] [address] Augustine Regan MD [facility] [place] [address] Pigmentary glaucoma of both eyes, moderate stage; [...] Progress Notes * Augustine Regan MD - 05/21/2024 9:45 AM EDT Pigmentary glaucoma OU: IOP stable HVF stable OCT stable Pseudophakia OU: Plan: Continue OU: Azopt 2x/day Timolol 1x/day Latanoprost at night RTC: 6 mo IOP ck documented in this encounter Plan of Treatment Upcoming Encounters Date Type Department Care Team (Late st Contact Info) Description 11/19/2024 9:45 AM EDT [place] [address] Augustine Regan MD [facility] [place] [address] documented as of this encounter Procedures Procedure [...] means documented in this encounter Care Teams Java Lead Engineer Relationship Specialty Start Date End Date Jannette Perales APRN PCP - General General Internal Medicine 08/18/17 documented as of this encounter
--- OUTSIDE RECORDS SUMMARY | 2024-07-09 00:19 | XMS_ITS | Encounter Summary ---
Author Organization [facility] Address [facility] [place] [address] Care Team Providers Care Lithographic Press Operator Apprentice Name Role Phone Rebecca Kumar MD Primary Care Provider [phone] Reason for Visit * Reason Comments Coronary Artery Disease Encounter Details Date Type Department Care Team (Late st Contact Info) Description 01/07/2012 1:40 PM EDT Follow-Up Cardiology at [address] [address] Navi Olivo MD [facility] [place] [address] ASCVD (arteriosclerotic cardiovascular disease) (Primary Dx); Hyperlipidemia LDL goal < 70; Hypertension Discharge Disposition: Home Social History Tobacco Use Types Packs/Day Years Used Date Smoking Tobacco: Never Smokeless Tobacco: Never Alcohol Use Standard Drinks/Week Comments Yes 7 (1 standard drink = 0.6 oz pur e alcohol) Sex and Gender Information Value Date Recorded Sex Assigned at Not on file Gender Identity Not on file Sexual Orientation Not on file documented as of this encounter Last Filed Vital Signs Vital Sign Reading Time Taken Comments Blood Pressure 130/78 01/07/2012 1:23 PM EDT Pulse 58 01/07/2012 1:23 PM EDT Temperature - - Respiratory Rate - - Oxygen Saturation 97% 01/07/2012 1:23 PM EDT Inhaled Oxygen Concentration - - Weight 82.3 kg (181 lb 8 oz) 01/07/2012 1:23 PM EDT Height 152.4 cm (5') 01/07/2012 1:23 PM EDT Body Mass Index 35.45 01/07/2012 1:23 PM EDT documented in this encounter Progress Notes * Alejandro Alamo MD - 01/08/2012 5:04 PM EDT Staff Network Pricing Consultant Note I was the teaching physician providing oversight for this office encounter. I reviewed the details of the cardiovascular history, performed a focused exam and identified the clinical diagnosis(es) and plan of care. I concur with the details as summarized by the fellow in the office notation today. Alejandro Alamo MD, MS Staff Network Pricing Consultant Beeper #[id number] * Navi Olivo MD - 01/07/2012 1:33 PM EDT Cardiology Outpatient Visit Patient ID: Sona Rodrigez is a 66 y.o. female is here for regular follow up. HPI Ms Rodrigez has prior history of CAD s/p PCI in 2006 with some residual disease of LAD and normal LV function. She has had no recurrent angina since her PCI. She though has been limited in her physical activity due to joint problems, 2 hip replacement surgeries and now she is scheduled for spine surgery on January 23 in [place]. She denies any episodes of exertional SOB, palpitations, swelling of legs, lightheadedness or syncope. She has been working on reducing weight but has been unsuccessful. She was also prescribed lipitor (was generic brand) which gave her some muscle aches in Jul/Aug therefore her PCP stopped it. A month ago the cholesterol and DM checks by PCP were in normal limits. Review of Systems Constitutional: Negative. HENT: Negative. Eyes: Negative. Cardiovascular: Negative for chest pain, dyspnea on exertion, leg swelling, orthopnea, palpitationsand syncope. Respiratory: Negative. Skin: Negative. Musculoskeletal: Positive for back pain and joint pain. Gastrointestinal: Positive for abdominal pain. Genitourinary: Negative. Neurological: Negative. Psychiatric/Behavioral: Negative. Patient Active Problem List Diagnoses ??? Obstructive sleep apnea (adult) (pediatric) 10/25/10 AHI 22 ??? Pseudophakia of both eyes ??? ASCVD (arteriosclerotic cardiovascular disease) Cath -07 showed 65% mid LAD, 40% prox LCx, mild diffuse, 30% prox RCA and 85% mid RCA (s/p 3.5x18 cypher); LVEF 65%. - also happened pre-surgery chest pains and positive stress test ([facility], [facility]) ??? S/P coronary artery stent placement ??? HTN (hypertension) ??? Acute spont subarachnoid intracranial hemorrhage d/t cerebral aneurysm ??? S/p cerebral aneurysm repair ??? Hypercholesteremia ??? 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 female With pig glauc ou, suspect age 38 and began elevation of iop at 45. Sukhi. Discs=have gone from init 0.7 to now 0.8 ou out inf temp ou; VFs=in 91 w sup bjer os and nl od have slowly prog to now=od= inf step and os = bilat steps. Oct 11/04=53/45. Tmax 23/25. IOPstatus=9- 12 ou on MEDS= chanelle, xal, az. ADR= [...] awhile after ce ou. Gen subarach heme in88. Dil disc photos ? Gonio, ck spindles. ??? GERD (gastroesophageal reflux disease) ??? Breast cancer, left breast ??? S/p left mastectomy ??? S/P tonsillectomy ??? S/p hysterectomy ??? S/P rotator cuff surgery Bilateral repairs ??? S/P cataract extraction ??? Status post hip replacement Dx replacement utility run on deactivated IMO Dx [id number] ??? 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 CIS - LOC OSTEOARTH NOS-PELVIS 715.35 Past Medical History Diagnosis Date ??? Allergy ??? Arthritis ??? Cancer 2000 Breast ??? Cardiac disease ??? Glaucoma Pigmentary ??? Hypertension ??? YOLANDA (obstructive sleep apnea) Past Surgical History Procedure Date ??? Created by interface BREAST IMPLANT REMOVAL-UNILATERAL(MP) / LT Procedure Date: 07/16/2001 ??? Created by interface BREAST RECONSTRUCTION / LT Procedure Date: 11/23/1991 ??? Created by interface BREAST RECONSTRUCTION / LT/PLACE PERM. IMPLA/ABD. ADVANCEMENT FLAP Procedure Date: 03/02/1992 ??? Created by interface CAPSULOTOMY-YAG LASER (MSEYE) / RT Procedure Date: 02/27/2005 ??? Created by interface CATARACT EXTRACTION-EXTRA CAPSULAR / PHACO EMULSIFIER/LENS IMPLANT/LT Procedure Date: 07/16/2000 ??? Created by interface CATARACT EXTRACTION-EXTRA CAPSULAR / PHACO EMULSIFIER/LENS IMPLANT/RT Procedure Date: 12/26/1999 ??? Created by interface Craniotomy for aneurysm Procedure Date: 1987 ??? Created by interface cystocele Procedure Date: Unknown ??? Created by interface Entered not Verified Procedure Date: 07/11/2010 ??? Created by interface hysterectomy Procedure Date: Unknown ??? Created by interface MODIFIED RADICAL MASTECTOMY / LT/WITH TISSUE SKIN PEELING MACHINE OPERATOR Procedure Date: 11/23/1991 ??? Created by interface oophorectomy Procedure Date: Unknown ??? Created by interface tonsillectomy Procedure Date: Unknown ??? Created by interface TOTAL HIP ARTHROPLASTY / LEFT/PINNACLE MAREN./S-ROM FEMORAL Procedure Date: 09/02/2006 ??? Created by interface TRABECULOPLASTY BY LASER (MSEYE) / LT Procedure Date: 08/04/2008 ??? Created by interface TRABECULOPLASTY BY LASER (MSEYE) / RT Procedure Date: 07/07/2008 ??? Cataract removal 12/26/1999 OD per [facility] ??? Cataract removal 06/2000 OS per [facility] ??? Yag capsulotomy 02/27/2005 OD ??? Peripheral iridotomy 12/1990 OD per [facility] ??? Argon laser trabeculoplasty 07/07/2008 OD per [facility] ??? Argon laser trabeculoplasty 08/04/2008 OS per [facility] History Social History ??? Marital Status: Spouse Name: N/A Number of Children: N/A ??? Years of Education: N/A Occupational History ??? Not on file. Social History Main Topics ??? Smoking status: Never Smoker ??? Smokeless tobacco: Never Used ??? Alcohol Use: 4.2 oz/week 7 Glasses of wine per week ??? Drug Use: No ??? Sexually Active: Not on file Other Topics Concern ??? Not on file Social History Narrative ??? No narrative on file Family History Problem Relation Age of Onset ??? Glaucoma Mother ??? Diabetes Mother ??? Hypertension Mother ??? Glaucoma Sister ??? Cataracts Sister ??? Cancer Sister ??? Heart Disease Sister ??? Retinal Detachment Brother ??? Heart Disease Brother ??? Macular Degen Neg Hx ??? Strabismus Neg Hx ??? Amblyopia Neg Hx ??? Blindness Neg Hx ??? Stroke Neg Hx ??? Thyroid Disease Neg Hx Current Outpatient Rx Name Route Sig Dispense Refill ??? METOPROLOL TARTRATE 25 MG ORAL TAB Oral Take 25 mg by mouth 2 times daily. ??? LISINOPRIL 20 MG ORAL TAB Oral Take 20 mg by mouth daily. ??? XALATAN 0.005 % OPHT DROP Both Eyes Place 1 drop into both eyes nightly. 90 day supply 7.5 mL 4 Dispense as written. ??? TIMOPTIC-XE 0.5 % OPHT SOLG Both Eyes Place 1 drop into both eyes every morning. 10 mL 11 Dispense as written. ??? BRINZOLAMIDE 1 % OPHT DRPS Both Eyes Place 1 drop into both eyes 2 times daily. 10 mL 11 Dispense as written. ??? CALCIUM + D ORAL Oral Take by mouth. ??? NEXIUM 40 MG ORAL CPDR Oral Take 40 mg by mouth daily. ??? TRAMADOL 50 MG ORAL TAB Oral Take 50 mg by mouth daily. ??? ASPIRIN 81 MG ORAL TBEC Oral Take 81 mg by mouth daily. ??? TORSEMIDE 20 MG ORAL TAB Oral Take 20 mg by mouth daily. ??? ACETAMINOPHEN 500 MG ORAL TAB Oral Take 1,000 mg by mouth every 8 hours as needed. ??? EZETIMIBE 10 MG ORAL TAB Oral Take 10 mg by mouth daily. ??? FENOFIBRATE NANOCRYSTALLIZED 145 MG ORAL TAB Oral Take 145 mg by mouth daily. ??? TRAZODONE 50 MG ORAL TAB Oral Take 50 mg by mouth nightly. ??? NITROGLYCERIN 0.4 MG SL SUBL Sublingual 0.4MG = 1 Tablet(s), Sublingual, PRN Allergies Allergen Reactions ??? Oxycodone Hcl Hives ??? Hydrocodone Hives ??? Hydromorphone Hives ??? Dipivefrin Hcl Rash Recent Review Flowsheet Data View Complete Flowsheet Vitals 01/07/2012 Weight 82.328 kg Height 152.4 cm BSA (Calculated - sq m) 1.87 BMI (Calculated) 35.5 Pulse 58 BP 130/78 SpO2 97 Objective: Physical Exam Constitutional: She is oriented to person, place, and time. She appears well-developed. HENT: Head: Normocephalic. Eyes: Conjunctivae are normal. Pupils are equal, round, and reactive to light. Neck: Normal range of motion. Neck supple. No JVD present. No thyromegaly present. Cardiovascular: Normal rate, regular rhythm and normal heart sounds. Exam reveals no gallop and no friction rub. No murmur heard. Pulmonary/Chest: Effort normal and breath sounds normal. She has no wheezes. She has no rales. Abdominal: Soft. Bowel sounds are normal. Musculoskeletal: Normal range of motion. She exhibits edema. Neurological: She is alert and oriented to person, place, and time. No cranial nerve deficit. Skin: Skin is warm and dry. Psychiatric: She has a normal mood and affect. Her behavior is normal. Judgment and thought contentnormal. Assessment and Plan: 66yr old female with known CAD s/p PCI in 2006 to RCA with residual disease in other vessels as detailed above, without any recurrence of angina, no heart failure, no arrhythmias or known valve disease. She is controlled with modifiable risk factors (BP, non smoker), I am unclear about the cholesterol control but by history she has had recent blood tests and had lipids within normal limits. She has stopped statin for muscle aches which should be restarted. We also did ECG in the clinic today and it did not show any ischemic changes or changes compared to previous ECG. ?? She is at moderate risk (due to prior history of CAD) for any new cardiovascular event during anintermediate-risk surgical procedure ?? Would recommend restarting statin (given her CAD it is perhaps in her best interest to be on statin) ?? Continue all medications as before. Navi Olivo MD CC: Rich Mcpherson- surgery at [place]. PCP documented in this encounter Plan of Treatment Upcoming Encounters Date Type Department Care Team (Late st Contact Info) Description 11/19/2024 9:45 AM EDT Office [place] [address] Augustine Regan MD [facility] [place] [address] documented as of this encounter Procedures Procedure Name Priority Date/Time Associated Diagnosis Comments EKG 12-LEAD Routine 01/07/2012 2:08 PM EDT ASCVD (arteriosclerotic cardiovascular disease) documented in this encounter Results * EKG 12 Lead (01/07/2012 2:08 PM EDT) Ventricular rate 55 BPM MUSE SYSTEM Atrial Rate 55 BPM MUSE SYSTEM P-R Interval 168 ms MUSE SYSTEM QRS Duration 88 ms MUSE SYSTEM Q-T Interval 444 ms MUSE SYSTEM QTC Calculated (Bezet) 424 ms MUSE SYSTEM Calculated P [place] 35 degrees MUSE SYSTEM Calculated R [place] 12 degrees MUSE SYSTEM Calculated T [place] 12 degrees MUSE SYSTEM INTERPRETATION Sinus bradycardia Otherwise normal ECG When compared with ECG of 12-JUL-2010 14:44, No significant change was found Confirmed by MD LARS, DARSHAN ([id number]) on 01/08/2012 2:30:46 PM MUSE SYSTEM 01/07/2012 2:08 PM EDT 01/08/2012 2:30 PM EDT Alejandro Alamo MD ECG ORDERABLES MUSE SYSTEM documented in this encounter Visit Diagnoses Diagnosis ASCVD (arteriosclerotic cardiovascular disease)- Primary Unspecified cardiovascular disease Hyperlipidemia LDL goal < 70 Other and unspecified hyperlipidemia Hypertension Unspecified essential hypertension documented in this encounter Care Teams Lithographic Press Operator Apprentice Relationship Specialty Start Date End Date Rebecca Kumar MD [address] [address] PCP - General 06/19/10 09/22/13 documented as of this encounter
--- OUTSIDE RECORDS SUMMARY | 2024-07-09 00:19 | XMS_ITS | Encounter Summary ---
Author Organization [facility] [place] [address] Care Team Providers Care Collar Padder Blindstitch Name Role Phone Rebecca Kumar MD Primary Care Provider [phone] Reason for Visit * Reason Comments Procedure Yag Cap OD Encounter Details Date Type Department Care Team (Latest Contact Info) Description 07/26/2013 7:30 AM EST Procedure [place] [address] [facility] [address] [place]THAL[place] [address] Posterior capsular opacification visually significant of right eye (Primary Dx) Discharge Disposition: Home Social History Tobacco Use [...] as of this encounter Progress Notes * Fuentes Dunbar MD - 07/26/2013 8:21 AM EST 01/16/2011 Sona Rodrigez is a 65 y.o. female With pig glauc ou, suspect age 38 and began elevation of iop at age 45. St funes. Discs=have gone from init 0.7 to now 0.8 ou out to rim inf temp ou; VFs=in 89 w sup bjer os and nl od have slowly prog to now=od= sup sahra and step and inf bjer and os = bilat bjerrums. And nsc os and trace increase in inf loss od, watch Oct 11/04=53/45. And 56/49 on 10/06. And 56/52 on 07/09 and nsc ou. Tmax . IOPstatus=9-12 ou on MEDS= chanelle, xal, az. Generics ok. ADR= propine. TARGET<~14 ou. Gonio initial= +5 band 360 ou and full tm thickness ou. Surg= pi ou on . Ce ou on 1999, dgc. Alt ou on 08 ou due to increased vf loss. VA= 20 ou, was -3.50 my ou. HIST=Init =3 k spin that may have decreased over the years. TIDs=0. ie thick brown irides that never allowed visualization! AP length 26.1/26.7. Course: up to 1999 req 3 meds to keep iop below 20 ou.Then iop lowered for awhile after ce ou. Gen subarach heme in . Gonio, ck spindles. 01/16/2011 the tms have lightened considerably ou. No doubt. 06/30/2013= iops= /~13 ou and glc stable and same rx. Slight blur od with trace pco od and will planyag cap od, dilate od only. hvfs. 07/26/2013= Yag cap od Plan ck 6m documented in this encounter Miscellaneous Notes * Miscellaneous - Provider, Scanning - 08/01/2013 2:16 PM EST documented in this encounter Plan of Treatment Upcoming Encounters Date Type Department Care Team (Late st Contact Info) Description 11/19/2024 9:45 AM EDT Office [place] [address] [facility] [place] [address] documented as of this encounter Procedures Procedure Name Priority Date/Time Associated Diagnosis Comments CAPSULOTOMY-YAG LASER - OD - RIGHT EYE Routine 07/26/2013 8:23 AM EST Posterior capsular opacification visually significant of right eye documented in this encounter Results * Capsulotomy - Yag Laser - OD - Right Eye (07/26/2013 8:23 AM EST) Anatomical Region Laterality Modality Other Narrative 07/26/2013 8:23 AM EST PROCEDURE: YAG CAPSULOTOMY od Sona Rodrigez is a 67 y.o. female with a diagnosis of opacification of the posterior capsule underwent the creation of a posterior capsulotomy of the ??od. Surgeon: Fuentes Dunbar MD Procedure: Following the application of one drop of tropicamide 1% to the surgical eye, and following the application of one drop of proparacaine 0.5% to each eye, the patient seated at the yag laser. A capsulotomy lens was placed on the eye and an adequate opening was obtained. ??The laser settings were one application per burst at a power setting of 2 millijoules per application and 6 bursts were used, focusing on the posterior capsule. ??There were no complications. Postoperatively, the patient will use pred forte 1% to the surgical eye four times a day for four days and will be rechcecked in approximately 6 months. Fuentes Dunbar MD Professor in Ophthalmology [facility] Medical Pattern Drum Maker: Glaucoma Service [facility] ?? Procedure Note Fuentes Dunbar MD - 07/26/2013 PROCEDURE: YAG CAPSULOTOMY od Sona Rodrigez is a 67 y.o. female with a diagnosis of opacification ofthe posterior capsule underwent the creation of a posterior capsulotomy ofthe od. Surgeon: Fuentes Dunbar MD Procedure: Following the application of one drop of tropicamide 1% to thesurgical eye, and following the application of one drop of proparacaine0.5% to each eye, the patient seated at the yag laser. A capsulotomy lenswas placed on the eye and an adequate opening was obtained. The lasersettings were one application per burst at a power setting of 2millijoules per application and 6 bursts were used, focusing on theposterior capsule. There were no complications. Postoperatively, the patient will use pred forte 1% to the surgical eyefour times a day for four days and will be rechcecked in approximately 6months. Fuentes Dunbar MD Professor in Ophthalmology [facility] Director: Glaucoma Service [facility] Fuentes Dunbar MD OPHTHALMOLOGY SERVIC ES ORDERABLES documented in this encounter Visit Diagnoses Diagnosis Posterior capsular opacification visually significant of right eye- Primary After-cataract, obscuring vision documented in this encounter Care Teams Collar Padder Blindstitch Relationship Specialty Start Date End Date Rebecca Kumar MD [address] [address] PCP - General 06/19/10 09/22/13 documented as of this encounter
--- OUTSIDE RECORDS SUMMARY | 2024-07-09 00:19 | XMS_ITS | Encounter Summary ---
Author Organization [facility] Address [facility] [place] [address] Care Team Providers Care Winemaker Name Role Phone VerareemaAmy Vivi MIRAMONTES Primary Care Provider [phone] Reason for Visit * Reason Onset Date Comments Medication Refill 12/29/2015 Encounter Details Date Type Department Care Team (Late st Contact Info) Description 12/29/2015 Ref[place] [address] Papo Pacheco MD [facility] DR OPHTHALMOLOGY [place] [address] Pigmentary glaucoma of both eyes, moderate stage [...] 9:45 AM EDT Office [place] [phone] Augustine Regan MD [facility] [place] [address] documented as of this encounter Visit Diagnoses Diagnosis Pigmentary glaucoma of both eyes, moderate stage Pigmentary open-angle glaucoma documented in this encounter Care Teams Winemaker Relationship Specialty Start Date End Date Amy Ramos DO PCP - General 09/23/13 08/17/17 documented as of this encounter
--- OUTSIDE RECORDS SUMMARY | 2024-07-09 00:19 | XMS_ITS | Encounter Summary ---
Author Organization [facility] [address] [address] Care Team Providers Care Branch Library Clerk Name Role Phone Jannette Perales DANE Primary Care Provider [phone] Reason for Visit * Reason Comments Pigmentary Glaucoma Encounter Details Date Type Department Care Team (Late st Contact Info) Description 09/21/2019 9:45 AM EST Office [place] [address] Augustine Regan MD [facility] [place] [address] Pigmentary glaucoma of both eyes, moderate stage; [...] Progress Notes * Augustine Regan MD - 09/21/2019 9:45 AM EST Pigmentary glaucoma OU: IOP doing well (14 OU) PCIOL OU: Stable, VA doing very well OU Plan: Continue current meds: Azopt both eyes 2 times daily, Timolol gel both eyes daily, Latanoprost both eyes nightly Return to clinic: 6 months Upon return: EPF, IOP, 24-2 HVF, dilate, no imaging documented in this encounter Plan of Treatment Upcoming Encounters Date Type Department Care Team (Late st Contact Info) Description 11/19/2024 9:45 AM EDT Office [place] [address] Augustine Regan MD [facility] [place] [address] documented as of this encounter Procedures Procedure Name Priority Date/Time Associated Diagnosis Comments OCT OPTIC NERVE - OU - BOTH EYES Routine 09/21/2019 11:03 AM EST Pigmentary glaucoma of both eyes, moderate stage documented in this encounter Results * Oct Optic Nerve - OU - Both Eyes (09/21/2019 11:03 AM EST) Anatomical Region Laterality Modality Other Narrative 09/21/2019 11:03 AM EST Right Eye Quality was good. Progression has been stable. Left Eye Quality was good. Progression has been stable. Notes Optic nerve report G = 56 OD G = 52 OS outside normal limits OU Interpretation: stable scans Augustine Regan MD OPHTHALMOLOGY SERVIC ES ORDERABLES documented in this encounter Visit Diagnoses Diagnosis Pigmentary glaucoma of both eyes, moderate stage Pigmentary open-angle glaucoma Pseudophakia of both eyes Lens replaced by other means documented in this encounter Care Teams Branch Library Clerk Relationship Specialty Start Date End Date Jannette Perales APRN PCP - General General Internal Medicine 08/18/17 documented as of this encounter
--- OUTSIDE RECORDS SUMMARY | 2024-07-09 00:19 | XMS_ITS | Encounter Summary ---
Author Organization [facility] [place] [address] Care Team Providers Care Boiler Shop Mechanic Name Role Phone Rebecca Kumar MD Primary Care Provider [phone] Reason for Visit * Reason Comments Obstructive Sleep Apnea Encounter Details Date Type Department Care Team (Late st Contact Info) Description 11/18/2011 9:45 AM EDT Office [place] [address] Meredith Oconnor MD [facility] [place] [address] Obstructive sleep apnea (adult) (pediatric) (Primary Dx) Social History Tobacco Use Types [...] Reading Time Taken Comments Blood Pressure 120/78 11/18/2011 9:25 AM EDT Pulse 50 11/18/2011 9:25 AM EDT Temperature - - Respiratory Rate - - Oxygen Saturation - - Inhaled Oxygen Concentration - - Weight 83.1 kg (183 lb 3.2 oz) 11/18/2011 9:25 A M EDT Height 152.4 cm (5') 11/18/2011 9:25 AM EDT Body Mass Index 35.78 11/18/2011 9:25 AM EDT documented in this encounter Progress Notes * Meredith Oconnor MD - 11/18/2011 10:07 AM EDT Sleep Medicine Follow-Up Note HPI: Sona Rodrigez is a 66 y.o. female seen for follow-up of obstructive sleep apnea. The patient was diagnosed with mild-mod YOLANDA. CPAP was initiated at 16cm. Ms. Rodrigez was seen in May for follow up and was having ongoing pressure intolerance. She thus returned for a BiPAP titration in Jun 2011. BiPAP 13/5cm was prescribed. Of note, some central apneas were observed on BiPAP andwere noted to be more frequent at higher BiPAP pressures. Able to use PAP: yes - likes better than CPAP Mask type: FFM Difficulty tolerating mask interface: occ minor leaks, but overall better than when on CPAP Pressure intolerance: no Dry mouth: no Difficulty breathing through nose: occ Symptom Improvement?: Nocturnal sleep quality improved: better - wakes up briefly with mask leak Daytime symptoms improved: energy levels OK. Doesn't feel sleepy - feels more limited due to hip problems Involuntary Dozing: no Driving: no ROS: CON: weight change: stable ENT: nasal obstruction: occ CV: BP BP improved with PAP; occ ankle swelling o/w negative : nocturia: occ PSYCH: depression/anxiety symptoms: no Past Medical History: Patient Active Problem List Diagnoses Code ??? 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 CIS - LOC OSTEOARTH NOS-PELVIS 715.35 ??? Status post hip replacement V43.64AN ??? ASCVD (arteriosclerotic cardiovascular disease) 429.2D ??? S/P coronary artery stent placement V45.82X ??? HTN (hypertension) 401.9AF ??? Acute spont subarachnoid intracranial hemorrhage d/t cerebral aneurysm 430CJ ??? S/p cerebral aneurysm repair V45.89FC ??? Hypercholesteremia 272.0J ??? 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 GERD (gastroesophageal reflux disease) 530.81S ??? Breast cancer, left breast 174.9GP ??? S/p left mastectomy V45.71W ??? S/P tonsillectomy V45.89LH ??? S/p hysterectomy V88.01M ??? S/P rotator cuff surgery V45.89ML ??? S/P cataract extraction V45.61C ??? Pseudophakia of both eyes V43.1L ??? Obstructive sleep apnea (adult) (pediatric) 327.23 Medications: Outpatient prescriptions marked as taking for the 11/18/11 encounter (Office Visit) with MEREDITH OCONNOR Medication Sig Dispense Refill ??? XALATAN 0.005 % ophthalmic solution Place 1 drop into both eyes nightly. 90 day supply 7.5 mL 4 ??? TIMOPTIC-XE 0.5 % ophthalmic gel-forming Place 1 drop into both eyes every morning. 10 mL 11 ??? brinzolamide (AZOPT) 1 % ophthalmic suspension Place 1 drop into both eyes 2 times daily. 10 mL11 ??? CALCIUM CARBONATE/VITAMIN D3 (CALCIUM + D ORAL) Take by mouth. ??? NEXIUM 40 mg capsule Take 40 mg by mouth daily. ??? ZESTRIL 10 mg tablet Take 40 mg by mouth daily. ??? traMADol (ULTRAM) 50 mg tablet Take 50 mg by mouth daily. ??? aspirin 81 mg EC tablet Take 81 mg by mouth daily. ??? torsemide (DEMADEX) 20 mg tablet Take 20 mg by mouth daily. ??? acetaminophen (TYLENOL EXTRA STRENGTH) 500 mg tablet Take 1,000 mg by mouth every 8 hours as needed. ??? ezetimibe (ZETIA) 10 mg tablet Take 10 mg by mouth daily. ??? fenofibrate (TRICOR) 145 mg tablet Take 145 mg by mouth daily. ??? traZODone (DESYREL) 50 mg tablet Take 50 mg by mouth nightly. ??? metoprolol tartrate (LOPRESSOR) 50 mg tablet Take 50 mg by mouth 2 times daily. ??? nitroGLYcerin (NITROSTAT) 0.4 mg SL tablet 0.4MG = 1 Tablet(s), Sublingual, PRN PE: BP 120/78 Pulse 50 Ht 152.4 cm (5') Wt 83.099 kg (183 lb 3.2 oz) BMI 35.78 kg/m2 General: pleasant 66 y.o. female, no distress PAP compliance card reviewed: Dates:07/15/11-11/17/11 Pressure: BiPAP 13/5cm % days used: 99% Average usage on days used: 7+ hrs Average residual AHI: 15 (BRENDAN 11) Leak: int elevated Assessment: Sona Rodrigez is a 66 y.o. female seen in follow-up for obstructive sleep apnea. She has been switched to BiPAP and is tolerating this better than CPAP. She has excellent adherence to therapy and good control of nocturnal and daytime symptoms. There is some mild residual YOLANDA, thus I will empirically increase the pressures slightly, although she had central apneas on the titration study and her compliance card also suggests some centrals, thus I will only make a small change in the pressure fornow and then reassess. Time spent face to face: 20min Time spent devoted to counseling and discussion: 15min Recommendations: 1. Increase BiPAP 14/6cm 2. F/U 6 mo (with PAP specialist, if available. Otherwise, in my clinic) Patient voices understanding and acceptance of this advice and will call back if any further questions or concerns. documented in this encounter Plan of Treatment Upcoming Encounters Date Type Department Care Team (Late st Contact Info) Description 11/19/2024 9:45 AM EDT Office [place] [address] Augustine Regan MD [facility] [place] [address] documented as of this encounter Visit Diagnoses Diagnosis Obstructive sleep apnea (adult) (pediatric)- Primary documented in this encounter Care Teams Boiler Shop Mechanic Relationship Specialty Start Date End Date Rebecca Kumar MD [address] [address] PCP - General 06/19/10 09/22/13 documented as of this encounter
--- OUTSIDE RECORDS SUMMARY | 2024-07-09 00:19 | XMS_ITS | Encounter Summary ---
Author Organization [facility] [place] [address] Care Team Providers Care Paint Dipper Name Role Phone Amy Ramos Vivi MIRAMONTES Primary Care Provider Reason for Visit * Reason Onset Date Comments Procedure 12/12/2014 Encounter Details Date Type Department Care Team (Latest Contact Info) Description 12/12/2014 9:05 AM EDT Procedure [place] [address] Pigmentary glaucoma of both eyes, moderate stage [...] as of this encounter Progress Notes * Migel Duval MD - 12/12/2014 10:15 AM EDT Please see procedure note for details. Migel Duval MD documented in this encounter Miscellaneous Notes * Addendum Note - Migel Duval MD - 12/12/2014 10:16 AM EDTAddended by: MIGEL DUVAL on: 12/12/2014 10:16 AM Modules accepted: Orders, Level of Service, SmartSet documented in this encounter Plan of Treatment Upcoming Encounters Date Type Department Care Team (Late st Contact Info) Description 11/19/2024 9:45 AM EDT Office [place] [address] Augustine Regan MD [facility] [place] [address] documented as of this encounter Procedures Procedure Name Priority Date/Time Associated Diagnosis Comments AUTOMATED VISUAL FIELD - EXTENDED - OU- BOTH EYES Routine 12/12/2014 10:16 AM EDT Pigmentary glaucoma of both eyes, moderate stage documented in this encounter Results * AUTOMATED VISUAL FIELD - EXTENDED - OU- BOTH EYES (12/12/2014 10:16 AM EDT) Anatomical Region Laterality Modality Other Narrative 12/12/2014 10:16 AM EDT Right Eye Threshold was 24-2. Strategy was KENNY. Reliability was good. Left Eye Threshold was 24-2. Strategy was KENNY. Reliability was good. Notes No significant change/stable OU MD: OD -9.19, OS -11.71 Migel Duval MD OPHTHALMOLOGY SERVIC ES ORDERABLES documented in this encounter Visit Diagnoses Diagnosis Pigmentary glaucoma of both eyes, moderate stage Pigmentary open-angle glaucoma documented in this encounter Care Teams Paint Dipper Relationship Specialty Start Date End Date Amy Ramos DO PCP - General 09/23/13 08/17/17 documented as of this encounter
--- OUTSIDE RECORDS SUMMARY | 2024-07-09 00:19 | XMS_ITS | Encounter Summary ---
Author Organization [facility] [place] [address] Care Team Providers Care Irrigator Head Name Role Phone Kuldeep Kumar MD Primary Care Provider [phone] Encounter Details Date Type Department Care Team (Late st Contact Info) Description 07/01/2012 8:40 AM EST Follow-Up Cardiology at [address] [phone] Filipe Ricketts MD [facility] [place] [address] Coronary artery disease (Primary Dx) Discharge Disposition: Home Social History [...] Sign Reading Time Taken Comments Blood Pressure 122/68 07/01/2012 8:47 AM EST Pulse 64 07/01/2012 8:47 AM EST Temperature - - Respiratory Rate - - Oxygen Saturation - - Inhaled Oxygen Concentration - - Weight 78.9 kg (174 lb) 07/01/2012 8:47 AM EST Height 152.4 cm (5') 07/01/2012 8:47 AM EST Body Mass Index 33.98 07/01/2012 8:47 AM EST documented in this encounter Progress Notes * Filipe Ricketts MD - 07/01/2012 9:18 AM EST Cardiology Office Note I was asked by this patient's referring doctor to see this patient for their cardiac disease. PCP: KULDEEP KUMAR MD The patient is a 66 y.o. year old female with: pre-op evaluation for TKR Patient Active Problem List Diagnoses ??? Obstructive sleep apnea (adult) (pediatric) 10/25/10 AHI 22 ??? Pseudophakia of both eyes ??? ASCVD (arteriosclerotic cardiovascular disease) Cath -07 showed 65% mid LAD, 40% prox LCx, mild diffuse, 30% prox RCA and 85% mid RCA (s/p 3.5x18 cypher); LVEF 65%. - also happened pre-surgery chest pains and positive stress test ([facility]) ??? S/P coronary artery stent placement ??? HTN (hypertension) ??? Acute spont subarachnoid intracranial hemorrhage d/t cerebral aneurysm ??? S/P cerebral aneurysm repair ??? Hypercholesteremia ??? 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 female With pig glauc ou, suspect age 38 and began elevation of iop at 45. Sukhi. Discs=have gone from init 0.7 to now 0.8 ou out inf temp ou; VFs=in w sup bjer os and nl od [...] disease) ??? Breast cancer, left breast ??? S/P left mastectomy ??? S/P tonsillectomy ??? S/P hysterectomy ??? S/P rotator cuff surgery Bilateral repairs ??? S/P cataract extraction ??? Status post hip replacement Dx replacement utility run on deactivated IMO Dx [id number] ??? 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 CIS - LOC OSTEOARTH NOS-PELVIS 715.35 Current Outpatient Prescriptions Medication Sig Dispense Refill ??? rosuvastatin (CRESTOR) 10 mg tablet Take 10 mg by mouth daily. ??? metoprolol tartrate (LOPRESSOR) 25 mg tablet Take 50 mg by mouth 2 times daily. ??? lisinopril (PRINIVIL;ZESTRIL) 20 mg tablet Take 40 mg by mouth daily. ??? nitroGLYcerin (NITROSTAT) 0.[address] 1 tablet under the tongue every 5 minutes as needed. 20 tablet 5 ??? XALATAN 0.005 % ophthalmic solution Place 1 drop into both eyes nightly. 90 day supply 7.5 mL 4 ??? TIMOPTIC-XE 0.5 % ophthalmic gel-forming Place 1 drop into both eyes every morning. 10 mL 11 ??? brinzolamide (AZOPT) 1 % ophthalmic suspension Place 1 drop into both eyes 2 times daily. 10 mL11 ??? NEXIUM 40 mg capsule Take 40 mg by mouth daily. ??? traMADol (ULTRAM) 50 mg tablet Take 50 mg by mouth daily. ??? aspirin 81 mg EC tablet Take 81 mg by mouth daily. ??? torsemide (DEMADEX) 20 mg tablet Take 20 mg by mouth daily. ??? traZODone (DESYREL) 50 mg tablet Take 50 mg by mouth nightly. ??? acetaminophen (TYLENOL EXTRA STRENGTH) 500 mg tablet Take 1,000 mg by mouth every 8 hours as needed. Hydrocodone; Hydromorphone; Oxycodone hcl; and Dipivefrin hcl Cardiac risk factors: Lipid Status-- followed elsewhere, data not available on crestor No results found for this basename: CHLPL, HDL, LDLCHOL, TRIG Diabetes yes() no(x) Current smoking yes() no(x) Hypertension yes(x) No()--well treated Intercurrent Events: 1) Hospitalizations--back surgery 12/2011--did well 2) Syncope yes() no (x) 3) AICD status yes () no(x) 4) Pacemaker status yes() no(x) 5) Medication changes since last visit--N/A 6) Home O2 yes() no (x) Test Results: Today's EKG shows sinus bradycardia, otherwise normal Subjective: She recently had an L 4-5 surgery performed at [facility] 12/2011. She had no problems and was able to go home without difficulty. She also has had bilateral THR over the past few years.After the first THR in 2006 she came here 1 month later for unstable angina and a cypher stent placed in the RCA for severe lesion. She has done well since. Her cardiac risk factors have been treated She was able to do a THR in 2010 without difficulty. She is now going to go ahead with knee replacement. She has been doing well recently without symptoms of ischemia or CHF. Objective: Neck veins are visible and not distended. The carotid upstrokes are normal without bruits. The chest is clear. Cardiac sounds are normal. The abdomen is soft and non-tender without organomegaly or mass. There is no edema. The extremities are warm and well perfused. Blood pressure 122/68, pulse 64, height 152.4 cm (5'), weight 78.926 kg (174 lb). Assessment: Stable cardiovascular status S/P RCA cypher stent placed 2006. She is tolerating crestor. We reviewed her current status and recent course. We discussed a variety of issues and I answeredher questions. We discussed the importance of risk factor control and target LDL. Plan: OK to proceed with surgery as planned. Continue current program. Prn follow-up with me. Cc:KULDEEP KUMAR MD documented in this encounter Plan of Treatment Upcoming Encounters Date Type Department Care Team (Late st Contact Info) Description 11/19/2024 9:45 AM EDT Office [place] [phone] Augustine Regan MD [facility] [place] [address] documented as of this encounter Procedures Procedure Name Priority Date/Time Associated Diagnosis Comments EKG 12-LEAD Routine 07/01/2012 9:38 AM EST Coronary artery disease documented in this encounter Results * EKG 12 Lead (07/01/2012 9:38 AM EST) Ventricular rate 52 BPM MUSE SYSTEM Atrial Rate 52 BPM MUSE SYSTEM P-R Interval 186 ms MUSE SYSTEM QRS Duration 72 ms MUSE SYSTEM Q-T Interval 454 ms MUSE SYSTEM QTC Calculated (Bezet) 422 ms MUSE SYSTEM Calculated P Broughton 25 degrees MUSE SYSTEM Calculated R Broughton 14 degrees MUSE SYSTEM Calculated T Broughton 20 degrees MUSE SYSTEM INTERPRETATION Sinus bradycardia Otherwise normal ECG When compared with ECG of 07-JAN-2012 14:08, No significant change was found Confirmed by MD Garvin Douglas ([id number]) on 07/01/2012 1:13:14 PM MUSE SYSTEM 07/01/2012 9:38 AM EST 07/01/2012 1:13 PM EST Filipe Ricketts MD ECG ORDERABLES MUSE SYSTEM documented in this encounter Visit Diagnoses Diagnosis Coronary artery disease- Primary Coronary atherosclerosis of unspecified type of vessel, [place] or graft documented in this encounter Care Teams Irrigator Head Relationship Specialty Start Date End Date Kuldeep Kumar MD [address] [address] PCP - General 06/19/10 09/22/13 documented as of this encounter
--- OUTSIDE RECORDS SUMMARY | 2024-07-09 00:19 | XMS_ITS | Encounter Summary ---
Author Organization [facility] Address [facility] [place] [address] Care Team Providers Care Account Representative Name Role Phone DarlinereemaAmy Vivi MIRAMONTES Primary Care Provider [phone] Reason for Visit * Reason Comments Medication Refill Encounter Details Date Type Department Care Team (Late st Contact Info) Description 07/01/2017 [place] [phone] Papo Pacheco MD [facility] [place] [address] Pigmentary glaucoma of both eyes, moderate stage [...] 9:45 AM EDT Office [place] [phone] Augustine Regan MD [facility] [place] [address] documented as of this encounter Visit Diagnoses Diagnosis Pigmentary glaucoma of both eyes, moderate stage Pigmentary open-angle glaucoma documented in this encounter Care Teams Account Representative Relationship Specialty Start Date End Date Amy Ramos DO PCP - General 09/23/13 08/17/17 documented as of this encounter
--- OUTSIDE RECORDS SUMMARY | 2024-07-09 00:19 | XMS_ITS | Encounter Summary ---
Author Organization [facility] Address [facility] [place] [address] Care Team Providers Care Tower Cleaner Name Role Phone Jannette Perales DANE Primary Care Provider [phone] Reason for Visit * Reason Comments Medication Refill Encounter Details Date Type Department Care Team (Late Contact Info) Description 11/02/2019 [place] [phone] Augustine Regan MD [facility] [place] [address] Pigmentary glaucoma of both eyes, moderate stage [...] 9:45 AM EDT Office [place] [phone] Augustine Regan MD [facility] [place] [address] documented as of this encounter Visit Diagnoses Diagnosis Pigmentary glaucoma of both eyes, moderate stage Pigmentary open-angle glaucoma documented in this encounter Care Teams Tower Cleaner Relationship Specialty Start Date End Date Jannette Perales APRN PCP - General General Internal Medicine 08/18/17 documented as of this encounter
--- OUTSIDE RECORDS SUMMARY | 2024-07-09 00:19 | XMS_ITS | Encounter Summary ---
Author Organization [facility] [place] [address] Care Team Providers Care Bookkeepers Supervisor Name Role Phone VerareemaAmy Vivi MIRAMONTES Primary Care Provider [phone] Reason for Visit * Reason Onset Date Comments Medication Refill 12/21/2015 Latanoprost to [facility] Encounter Details Date Type Department Care Team (Late st Contact Info) Description 12/21/2015 Refill [place] [address] Papo Pacheco MD [facility] [place] [address] Pigmentary glaucoma of both eyes, moderate stage [...] 9:45 AM EDT Office [place] [address] Augustine Regan MD [facility] [place] [address] documented as of this encounter Visit Diagnoses Diagnosis Pigmentary glaucoma of both eyes, moderate stage Pigmentary open-angle glaucoma documented in this encounter Care Teams Bookkeepers Supervisor Relationship Specialty Start Date End Date Amy Ramos DO PCP - General 09/23/13 08/17/17 documented as of this encounter
--- OUTSIDE RECORDS SUMMARY | 2024-07-09 00:19 | XMS_ITS | Encounter Summary ---
Author Organization [facility] Address [facility] [place] [place] [address] Care Team Providers Care Hot Box Operator Name Role Phone Jannette Perales DANE Primary Care Provider [phone] Reason for Visit * Reason Comments Pseudophakia Pigmentary Glaucoma Encounter Details Date Type Department Care Team (Late st Contact Info) Description 06/15/2020 10:45 AM EST Office [place] [address] Augustine Regan MD [facility] [place] [place] [address] Pigmentary glaucoma of both eyes, moderate stage; [...] Progress Notes * Augustine Regan MD - 06/15/2020 10:45 AM EST Pigmentary glaucoma OU: IOP doing well PCIOL OU: Stable, VA doing very well OU Plan: Continue current meds: Azopt both eyes 2 times daily, Timolol gel both eyes daily, Latanoprost both eyes nightly Return to clinic: 6 months Upon return: EPF, IOP, OCT, no dilation, no HVF documented in this encounter Plan of Treatment Upcoming Encounters Date Type Department Care Team (Late st Contact Info) Description 11/19/2024 9:45 AM EDT Office [place] [address] Augustine Regan MD [facility] [place] [address] documented as of this encounter Procedures Procedure Name Priority Date/Time Associated Diagnosis Comments AUTOMATED VISUAL FIELD - EXTENDED - OU- BOTH EYES Routine 06/15/2020 11:08 AM EST Pigmentary glaucoma of both eyes, moderate stage documented in this encounter Results * Automated Visual Field - Extended - OU - Both Eyes (06/15/2020 11:08 AM EST) Anatomical Region Laterality Modality Other Narrative 06/15/2020 11:08 AM EST Right Eye Threshold was 24-2. Strategy was KENNY. Reliability was good. Progression has been stable. Left Eye Threshold was 24-2. Strategy was KENNY. Reliability was good. Progression has been stable. Notes Visual Field Results Type of VF: ??HVF 24-2 Indication: ??Pigmentary glaucoma OU Reliability: ??good Glaucoma Hemifield Test (GHT) OD: outside normal limits OS: outside normal limits Visual Function Index (VFI) OD: 70 % OS: 63 % MD OD: -9.52 dB ? PSD OD: 11.92 dB MD OS: -12.77 dB ??PSD OS: 12.60 dB Interpretation: no progression detected Augustine Regan [facility]LES documented in this encounter Visit Diagnoses Diagnosis Pigmentary glaucoma of both eyes, moderate stage Pigmentary open-angle glaucoma Pseudophakia of both eyes Lens replaced by other means documented in this encounter Care Teams Hot Box Operator Relationship Specialty Start Date End Date Jannette Perales APRN PCP - General General Internal Medicine 08/18/17 documented as of this encounter
--- OUTSIDE RECORDS SUMMARY | 2024-07-09 00:19 | XMS_ITS | Encounter Summary ---
Author Organization [place] [address] Care Team Providers Care Congressional District Aide Name Role Phone Rebecca Kumar MD Primary Care Provider [phone] Reason for Visit * Reason Comments Pigmentary Glaucoma Patient here for [address] [facility] check to monitor pigmentary glaucoma, IOP/HVF/Dil Encounter Details Date Type Department Care Team (Late st Contact Info) Description 12/10/2012 8:00 AM EDT Follow-[place] [address] Fuentes Dunbar MD [facility] DR OPHTHALMOLOGY [place] [address] Pigmentary glaucoma (Primary Dx); Pigmentary open-angle glaucoma; Glaucoma, pigmentary Discharge Disposition: Home Social History Tobacco Use [...] Progress Notes * Fuentes Dunbar MD - 12/10/2012 9:32 AM EDT 01/16/2011 Sona Rodrigez is a 65 y.o. [...] watch Oct 11/04=53/45. And 56/49 on 10/06. Tmax 23/25. IOPstatus=9-12 ou on MEDS= chanelle, [...] ce ou. Gen subarach heme in 88. Gonio, ck spindles. 01/16/2011 the tms have lightened considerably ou. No doubt. 12/10/2012= iops=10 and generics ok glc stable same rx Plan ck 6m. 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
--- OUTSIDE RECORDS SUMMARY | 2024-07-09 00:19 | XMS_ITS | Encounter Summary ---
Author [facility] Address [facility] [place] [address] Care Team Providers Care Freight Car Repairer Name Role Phone Jannette Perales DANE Primary Care Provider [phone] Reason for Visit * Reason Onset Date Comments Medication Refill 01/18/2020 Kieran XE backord ered, requesting alternative to [facility] Encounter Details Date Type Department Care Team (Late st Contact Info) Description 01/18/2020 Ref[place] [address] Augustine Regan MD [facility] [place] [place] [address] Pigmentary glaucoma of both eyes, moderate stage [...] 9:45 AM EDT Office [place] [address] Augustine Regan MD [facility] [place] [place] [address] documented as of this encounter Visit Diagnoses Diagnosis Pigmentary glaucoma of both eyes, moderate stage Pigmentary open-angle glaucoma documented in this encounter Care Teams Freight Car Repairer Relationship Specialty Start Date End Date Jannette Perales APRN PCP - General General Internal Medicine 08/18/17 documented as of this encounter
--- OUTSIDE RECORDS SUMMARY | 2024-07-09 00:19 | XMS_ITS | Encounter Summary ---
Author Organization [facility] Address [facility] [place] [address] Care Team Providers Care Galley Cook Name Role Phone Jannette Perales APRN Primary Care Provider [phone] Encounter Details Date Type Department Care Team (Late Contact Info) Description 06/16/2020 Telephone [place] [address] Augustine Regan MD [facility] [place] [address] Social History Tobacco Use Types Packs/Day Years [...] Encounters Date Type Department Care Team (Late Contact Info) Description 11/19/2024 9:45 AM EDT Office [place] [phone] Augustine Regan MD [facility] [place] [address] documented as of this encounter Visit Diagnoses Not on filedocumented in this encounter Care Teams Galley Cook Relationship Specialty Start Date End Date Jannette Perales APRN PCP - General General Internal Medicine 08/18/17 documented as of this encounter
--- OUTSIDE RECORDS SUMMARY | 2024-07-09 00:19 | XMS_ITS | Encounter Summary ---
Author Organization [facility] Address [facility] [address] Care Team Providers Care Tier Lift Operator Name Role Phone DarlinereemaAmy Vivi MIRAMONTES Primary Care Provider [phone] Reason for Visit * Reason Comments Medication Refill Encounter Details Date Type Department Care Team (Late st Contact Info) Description 08/16/2016 [place] [phone] Papo Pacheco MD [facility] [address] [place] [address] Pigmentary glaucoma of both eyes, moderate stage [...] 9:45 AM EDT Office [place] [address] Augustine Regan MD [facility] [place] [address] documented as of this encounter Visit Diagnoses Diagnosis Pigmentary glaucoma of both eyes, moderate stage Pigmentary open-angle glaucoma documented in this encounter Care Teams Tier Lift Operator Relationship Specialty Start Date End Date Amy Ramos DO PCP - General 09/23/13 08/17/17 documented as of this encounter
--- OUTSIDE RECORDS SUMMARY | 2024-07-09 00:19 | XMS_ITS | Encounter Summary ---
Author Organization [facility] Address [facility] [place] [address] Care Team Providers Care Delineator Name Role Phone Amy Raoms Primary Care Provider [phone] Reason for Visit * Reason Onset Date Comments Procedure 01/24/2014 Encounter Details Date Type Department Care Team (Latest Contact Info) Description 01/24/2014 9:20 AM EDT Procedure [place] [phone] Pigmentary glaucoma of both eyes, moderate stage (Primary Dx) Social History Tobacco Use Types [...] Progress Notes * Migel Duval MD - 01/24/2014 9:47 AM EDT Please see procedure note for details. MIGEL DUVAL MD Please see procedure note for details. MIGEL DUVAL MD documented in this encounter Plan of Treatment Upcoming Encounters Date Type Department Care Team (Late st Contact Info) Description 11/19/2024 9:45 AM EDT Office [place] [address] Augustine Regan MD [facility] [place] [address] documented as of this encounter Procedures Procedure Name Priority Date/Time Associated Diagnosis Comments AUTOMATED VISUAL FIELD - EXTENDED - OU- BOTH EYES Routine 01/24/2014 9:54 AM EDT Pigmentary glaucoma of both eyes, moderate stage documented in this encounter Results * AUTOMATED VISUAL FIELD - EXTENDED - OU- BOTH EYES (01/24/2014 9:54 AM EDT) Anatomical Region Laterality Modality Other Narrative 01/24/2014 9:54 AM EDT No significant change/stable OU MD: OD -1.04, OS -11.47 Procedure Note Migel Duval MD - 01/24/2014 No significant change/stable OU MD: OD -1.04, OS -11.47 Migel Duval MD OPHTHALMOLOGY SERVIC ES ORDERABLES documented in this encounter Visit Diagnoses Diagnosis Pigmentary glaucoma of both eyes, moderate stage- Primary Pigmentary open-angle glaucoma documented in this encounter Care Teams Delineator Relationship Specialty Start Date End Date Amy Ramos DO PCP - General 09/23/13 08/17/17 documented as of this encounter
--- OUTSIDE RECORDS SUMMARY | 2024-07-09 00:19 | XMS_ITS | Encounter Summary ---
Author Organization [facility] Address [facility] [place] [address] Care Team Providers Care Signal Worker Name Role Phone Amy Ramos Vivi MIRAMONTES Primary Care Provider [phone] Reason for Visit * Reason Comments Pigmentary Glaucoma 7-month f/u Encounter Details Date Type Department Care Team (Late st Contact Info) Description 01/18/2016 2:30 PM EDT Office [place] [address] Bony Pacheco MD [facility] [place] [address] Pigmentary glaucoma, unspecified glaucoma stage, unspecified laterality (Primary Dx); Pigmentary glaucoma of both eyes, moderate stage [...] on file documented as of this encounter Patient Instructions * Patient Instructions* Bony Pacheco MD - 01/18/2016 4:24 PM EDT HPI Pigmentary Glaucoma Additional comments: 7-month f/u Comments 7 mo check Pigmentary Glaucoma: Doing well. EDSON White has performed the documentation for this encounter in the presence of and acting as a scribe for BONY PACHECO MD. I performed the above scribed service and agree with the accuracy of the documentation in this encounter. Last edited by Bony Pacheco MD on 01/18/2016 4:12 PM. (History) Pigmentary glaucoma of both eyes Assessment: Pigmentary Glaucoma - IOP and testing stable Plan: Continue present medications Follow up in 6 mos HVF/OCT For additional information about eye conditions, visit the Eye Facts portion of my website at [email or web address]/eye-education/ and I also started a Glaucoma Patient Group on [employer] (htt [email or web address]/groups/glaucomapatientgroup) for patients to seek help from one another. (Search for Glaucoma Patient Group and then ask to join.) documented in this encounter Progress Notes * Bony Pacheco MD - 01/18/2016 4:23 PM EDT Pigmentary glaucoma of both eyes Assessment: Pigmentary Glaucoma - IOP and testing stable Plan: Continue present medications Follow up in 6 mos HVF/OCT documented in this encounter Miscellaneous Notes * Assessment & Plan Note - Bony Pacheco MD - 01/18/2016 4:23 PM EDT Associated Problem(s): Pigmentary glaucoma of both eyes Assessment: Pigmentary Glaucoma - IOP and testing stable Plan: Continue present medications Follow up in 6 mos HVF/OCT documented in this encounter Plan of Treatment Upcoming Encounters Date Type Department Care Team (Late st Contact Info) Description 11/19/2024 9:45 AM EDT Office [place] [address] Augustine Regan MD [facility] [place] [address] documented as of this encounter Procedures Procedure Name Priority Date/Time Associated Diagnosis Comments OCT OPTIC NERVE - OU - BOTH EYES Routine 01/18/2016 4:14 PM EDT Pigmentary glaucoma, unspecified glaucoma stage, unspecified laterality AUTOMATED VISUAL FIELD - EXTENDED - OU- BOTH EYES Routine 01/18/2016 4:14 PM EDT Pigmentary glaucoma, unspecified glaucoma stage, unspecified laterality documented in this encounter Results * OCT OPTIC [id number]-RN-PDVI EYES (01/18/2016 4:14 PM EDT) Anatomical Region Laterality Modality Other Narrative 01/18/2016 4:14 PM EDT Right Eye Quality was good. Left Eye Quality was good. Notes Optic nerve report G = 56 OD G = 48 OS outside normal limits OU Posterior pole report OD-OS asymmetry: none Hemisphere asymmetry: none Bony Pacheco MD OPHTHALMOLOGY SERV ICES ORDERABLES * AUTOMATED VISUAL FIELD - EXTENDED - OU- BOTH EYES (01/18/2016 4:14 PM EDT) Anatomical Region Laterality Modality Other Narrative 01/18/2016 4:14 PM EDT Right Eye Threshold was 24-2. Strategy was KENNY. Reliability was good. Left Eye Threshold was 24-2. Strategy was KENNY. Reliability was good. Notes Visual Field Results Glaucoma Hemifield Test (GHT) OD: outside normal limits OS: outside normal limits Visual Function Index (VFI) OD: 68 % OS: 51 % MD OD: -10.98 dB ? PSD OD: 11.07 dB MD OS: -16.16 dB ??PSD OS: 12.89 dB Interpretation: outside normal limits OU Bony Pacheco MD OPHTHALMOLOGY SERV ICES ORDERABLES documented in this encounter Visit Diagnoses Diagnosis Pigmentary glaucoma, unspecified glaucoma stage, unspecified laterality- Primary Pigmentary glaucoma of both eyes, moderate stage Pigmentary open-angle glaucoma documented in this encounter Care Teams Signal Worker Relationship Specialty Start Date End Date Amy Ramos DO PCP - General 09/23/13 08/17/17 documented as of this encounter
--- OUTSIDE RECORDS SUMMARY | 2024-07-09 00:19 | XMS_ITS | Encounter Summary ---
Author Organization [facility] Address [facility] [place] [address] Care Team Providers Care Tinware Lithograph Press Operator Name Role Phone Jannette Perales DANE Primary Care Provider [phone] Reason for Visit * Reason Comments Medication Refill Encounter Details Date Type Department Care Team (Late Contact Info) Description 07/03/2020 [place] [phone] Augustine Regan MD [facility] [place] [address] Pigmentary glaucoma of both eyes, moderate stage [...] 9:45 AM EDT Office [place] [address] Augustine Regan MD [facility] [place] [address] documented as of this encounter Visit Diagnoses Diagnosis Pigmentary glaucoma of both eyes, moderate stage Pigmentary open-angle glaucoma documented in this encounter Care Teams Tinware Lithograph Press Operator Relationship Specialty Start Date End Date Jannette ePrales APRN PCP - General General Internal Medicine 08/18/17 documented as of this encounter
--- OUTSIDE RECORDS SUMMARY | 2024-07-09 00:19 | XMS_ITS | Encounter Summary ---
Author Organization [facility] Address [place] [id number] Care Team Providers Care Supervisor Hanging And Trimming Name Role Phone Amy Ramos Primary Care Provider [phone] Reason for Visit * Reason Comments Pigmentary Glaucoma 4 mo ck, HVF, NO dil Encounter Details Date Type Department Care Team (Late st Contact Info) Description 12/12/2014 9:00 AM EDT [place] [address] Fuentes Dunbar MD [facility] [place] [address] Pigmentary glaucoma of both eyes, moderate stage; Pseudophakia of both eyes Discharge Disposition: Home Social History Tobacco Use [...] Progress Notes * Fuentes Dunbar MD - 12/12/2014 10:13 AM EDT IFuentes, performed the above scribed services and agree with the accuracy of the documentation of this encounter. Encounter Diagnoses Name Primary? Pigmentary glaucoma of both eyes, moderate stage ??? Pseudophakia of both eyes 01/16/2011 Sona Rodrigez is a 65 y.o. female With pig glauc ou, suspect age 38 and began elevation of iop at age 45. [facility]. Discs=have gone from init 0.7 to now 0.8 ou out to rim inf temp ou; VFs=in 89 w sup bjer os and nl od have slowly prog to now=od= sup sahra and step and inf bjer and os = bilat bjerrums. And nsc os and trace increase in inf loss od, watch and on 12/09 nsc ou. Oct 11/04=53/45. And 56/49 on 10/06. And 56/52 on 07/09 and nsc ou. And 59/54 on 08/11 and nsc ou. Tmax . IOPstatus=9-12 ou on MEDS= chanelle, xal, az. Generics ok. ADR= propine. TARGET<~14 ou. Gonio initial= +5 band 360 ou and full tm thickness ou. Surg= pi ou on . Ce ou on 1999, dgc. Alt ou on ou due to increased vf loss. Yag cap od 07/09. VA= 20 ou, was -3.50 my ou. [...] tms have lightened considerably ou. No doubt. 12/12/2014= iops= 10 and glc stable. Refer to dr draper in 6m dil octs d documented in this encounter Plan of Treatment Upcoming Encounters Date Type Department Care Team (Late st Contact Info) Description 11/19/2024 9:45 AM EDT Office [place] [address] Augustine Regan MD [facility] [place] [address] documented as of this encounter Visit Diagnoses Diagnosis Pigmentary glaucoma of both eyes, moderate stage Pigmentary open-angle glaucoma Pseudophakia of both eyes Lens replaced by other means documented in this encounter Care Teams Supervisor Hanging And Trimming Relationship Specialty Start Date End Date Amy Ramos DO PCP - General 09/23/13 08/17/17 documented as of this encounter
--- OUTSIDE RECORDS SUMMARY | 2024-07-09 00:19 | XMS_ITS | Encounter Summary ---
Author Organization [facility] Address [facility] [place] [address] Care Team Providers Care Digitizer Operator Name Role Phone Jannette Perales DANE Primary Care Provider Reason for Visit * Reason Comments Medication Refill Encounter Details Date Type Department Care Team (Late Contact Info) Description 04/04/2020 [place] [phone] Augustine Regan MD [facility] [place] [address] Pigmentary glaucoma of both eyes, moderate stage [...] 9:45 AM EDT Office [place] [address] Augustine Regan MD [facility] [place] [address] documented as of this encounter Visit Diagnoses Diagnosis Pigmentary glaucoma of both eyes, moderate stage Pigmentary open-angle glaucoma documented in this encounter Care Teams Digitizer Operator Relationship Specialty Start Date End Date Jannette Perales APRN PCP - General General Internal Medicine 08/18/17 documented as of this encounter
--- OUTSIDE RECORDS SUMMARY | 2024-07-09 00:19 | XMS_ITS | Encounter Summary ---
Author Organization [facility] Address [facility] [place] [address] Care Team Providers Care Resource Engineer Name Role Phone Amy Ramos DO Primary Care Provider [phone] Encounter Details Date Type Department Care Team (Late Contact Info) Description 12/29/2015 Orders [place] [address] Papo Pacheco MD [facility] [place] [address] Pigmentary glaucoma of both eyes, moderate stage [...] 9:45 AM EDT Office [place] [phone] Augustine Regan MD [facility] [place] [place] [address] documented as of this encounter Visit Diagnoses Diagnosis Pigmentary glaucoma of both eyes, moderate stage Pigmentary open-angle glaucoma documented in this encounter Care Teams Resource Engineer Relationship Specialty Start Date End Date Amy Ramos DO PCP - General 09/23/13 08/17/17 documented as of this encounter
--- OUTSIDE RECORDS SUMMARY | 2024-07-09 00:19 | XMS_ITS | Encounter Summary ---
Author Organization [facility] [place] [address] Care Team Providers Care Tank Erector Name Role Phone Jannette Perales DANE Primary Care Provider [phone] Reason for Visit * Reason Comments Pigmentary Glaucoma Encounter Details Date Type Department Care Team (Late st Contact Info) Description 03/08/2019 3:45 PM EDT Office [place] [address] Augustine Regan MD [facility] [place] [address] Pigmentary glaucoma of both eyes, moderate stage [...] Progress Notes * Augustine Regan MD - 03/08/2019 3:45 PM EDT 1. Pigmentary glaucoma OU: IOP doing well (14 OU) HVF and VA stable 2. PCIOL OU: Stable Plan: Continue current meds: (refills for all sent in today) Azopt both eyes 2 times daily, Timolol gel both eyes daily, Latanoprost both eyes nightly Return to clinic: 6 months Upon return: EPF, OCT, no dilation, no HVF documented in this encounter Plan of Treatment Upcoming Encounters Date Type Department Care Team (Late st Contact Info) Description 11/19/2024 9:45 AM EDT Office Visit Ophthalmology at [facility] [place] [address] Augustine Regan MD [facility] [place] [address] documented as of this encounter Procedures Procedure Name Priority Date/Time Associated Diagnosis Comments AUTOMATED VISUAL FIELD - EXTENDED - OU- BOTH EYES Routine 03/08/2019 4:46 PM EDT Pigmentary glaucoma of both eyes, moderate stage documented in this encounter Results * AUTOMATED VISUAL FIELD - EXTENDED - OU- BOTH EYES (03/08/2019 4:46 PM EDT) Anatomical Region Laterality Modality Other Narrative 03/08/2019 4:46 PM EDT Right Eye Threshold was 24-2. Strategy was KENNY. Left Eye Threshold was 24-2. Strategy was KENNY. Notes Visual Field Results Type of VF: ??HVF 24-2 Indication: ??Pigmentary glaucoma OU Reliability: ??good Glaucoma Hemifield Test (GHT) OD: outside normal limits OS: outside normal limits Visual Function Index (VFI) OD: 74 % OS: 55 % MD OD: -9.25 dB ? PSD OD: 11.94 dB MD OS: -13.96 dB ??PSD OS: 12.30 dB Interpretation: no progression detected Augustine Regan MD OPHTHALMOLOGY SERVIC ES ORDERABLES documented in this encounter Visit Diagnoses Diagnosis Pigmentary glaucoma of both eyes, moderate stage Pigmentary open-angle glaucoma documented in this encounter Care Teams Tank Erector Relationship Specialty Start Date End Date Jannette PeralesDANE PCP - General General Internal Medicine 08/18/17 documented as of this encounter
--- OUTSIDE RECORDS SUMMARY | 2024-07-09 00:19 | XMS_ITS | Encounter Summary ---
Author Organization [facility] [place] [address] Care Team Providers Care Campground Hand Name Role Phone DarlinereemaAmy Vivi MIRAMONTES Primary Care Provider [phone] Reason for Visit * Reason Onset Date Comments Medication Refill 02/04/2014 Encounter Details Date Type Department Care Team (Late Contact Info) Description 02/04/2014 [place] [address] Fuentes Dunbar MD [facility] [address] [place] [address] Pigmentary open-angle glaucoma(365.13) (Primary Dx) Social History Tobacco Use Types [...] encounter Miscellaneous Notes * Telephone Encounter - Kat Rivera - 02/04/2014 1:52 PM EDT Pt looking to get a refill of brinzolamide (AZOPT) 1 % ophthalmic suspension [facility] [place] [place] - [address] [place] [address] documented in this encounter Plan of Treatment Upcoming Encounters Date Type Department Care Team (Late st Contact Info) Description 11/19/2024 9:45 AM EDT Office [place] [address] Augustine Regan MD [facility] [place] [address] documented as of this encounter Visit Diagnoses Diagnosis Pigmentary open-angle glaucoma(365.13)- Primary Pigmentary open-angle glaucoma documented in this encounter Care Teams Campground Hand Relationship Specialty Start Date End Date Amy Ramos DO PCP - General 09/23/13 08/17/17 documented as of this encounter
--- OUTSIDE RECORDS SUMMARY | 2024-07-09 00:19 | XMS_ITS | Encounter Summary ---
Author Organization [facility] Address [place] [id number] Care Team Providers Care Field Technical Assistant Name Role Phone Amy Ramos Primary Care Provider [phone] Reason for Visit * Reason Comments Pigmentary Glaucoma 6 month F/U with OCT Disc OU for Pigmentary Glaucoma Encounter Details Date Type Department Care Team (Late st Contact Info) Description 08/01/2014 1:15 PM EST [place] [address] Fuentes Dunbar MD [facility] [place] [address] Pigmentary glaucoma of both eyes, moderate stage (Primary Dx); Pseudophakia of both eyes Discharge Disposition: Home [...] Progress Notes * Fuentes Dunbar MD - 08/01/2014 2:50 PM EST IFuentes, performed the above scribed services and agree with the accuracy of the documentation of this encounter. Encounter Diagnoses Name Primary? Pigmentary glaucoma of both eyes, moderate stage Yes ??? Pseudophakia of both eyes 01/16/2011 Sona Rodrigez is a 65 y.o. female With pig glauc ou, suspect age 38 and began elevation of iop at age 45. [facility]. Discs=have gone from init 0.7 [...] tms have lightened considerably ou. No doubt. 08/01/2014= iops= 11 and glc stable; same rx; ck 4m hvf and no dilation. documented in this encounter Plan of Treatment Upcoming Encounters Date Type Department Care Team (Late st Contact Info) Description 11/19/2024 9:45 AM EDT Office [place] [address] Augustine Regan MD [facility] [place] [address] documented as of this encounter Procedures Procedure Name Priority Date/Time Associated Diagnosis Comments OCT OPTIC NERVE - OU - BOTH EYES Routine 08/01/2014 2:47 PM EST Pigmentary glaucoma of both eyes, moderate stage documented in this encounter Results * OCT OPTIC [id number] EYES (08/01/2014 2:47 PM EST) Anatomical Region Laterality Modality Other Narrative 08/01/2014 2:47 PM EST [place] No significant change/stable OU 59/54 Fuentes Dunbar MD OPHTHALMOLOGY SERVIC ES ORDERABLES documented in this encounter Visit Diagnoses Diagnosis Pigmentary glaucoma of both eyes, moderate stage- Primary Pigmentary open-angle glaucoma Pseudophakia of both eyes Lens replaced by other means documented in this encounter Care Teams Field Technical Assistant Relationship Specialty Start Date End Date Amy Ramos DO PCP - General 09/23/13 08/17/17 documented as of this encounter
--- OUTSIDE RECORDS SUMMARY | 2024-07-09 00:19 | XMS_ITS | Encounter Summary ---
Author Organization [place] [address] Care Team Providers Care Composing Machine Operator/Tender Name Role Phone Rebecca Kumar MD Primary Care Provider [phone] Reason for Visit * Reason Onset Date Comments Medication Refill 12/03/2012 Encounter Details Date Type Department Care Team (Late st Contact Info) Description 12/03/2012 [place] [address] Fuentes Dunbar MD [facility] DR [place] [address] Pigmentary open-angle glaucoma (Primary Dx); Glaucoma, pigmentary Social History Tobacco Use Types Packs/Day Years [...] encounter Miscellaneous Notes * Telephone Encounter - Rashida Peralta - 12/03/2012 9:47 AM EDT Pt called looking for a refill on her Azopt %1 1 drop OU 2 times a day and she asked that a note be put on it to fill only as prescribed so she is not given anything else. She would like this called into the [facility] [phone] documented in this encounter Plan of Treatment Upcoming Encounters Date Type Department Care Team (Late st Contact Info) Description 11/19/2024 9:45 AM EDT Office [place] [address] Augustine Regan MD [facility] [place] [address] documented as of this encounter Visit Diagnoses Diagnosis Pigmentary open-angle glaucoma(365.13)- Primary Pigmentary open-angle glaucoma Glaucoma, pigmentary Pigmentary open-angle glaucoma documented in this encounter Care Teams Composing Machine Operator/Tender Relationship Specialty Start Date End Date Rebecca Kumar MD [address] [address] PCP - General 06/19/10 09/22/13 documented as of this encounter
--- OUTSIDE RECORDS SUMMARY | 2024-07-09 00:19 | XMS_ITS | Encounter Summary ---
Author Organization [facility] Address [facility] [place] [address] Care Team Providers Care Insole Reinforcer Name Role Phone Jannette Perales DANE Primary Care Provider [phone] Reason for Visit * Reason Comments Pigmentary Glaucoma 6 mo glaucoma ck for Pigmentary Glaucoma Encounter Details Date Type Department Care Team (Late st Contact Info) Description 02/16/2018 8:30 AM EDT Office [place] [address] Paulina Serrato, OD [facility] [place] [address] Pigmentary glaucoma of both eyes, moderate stage; Astigmatism with presbyopia, bilateral Social History Tobacco Use Types Packs/Day Years Used Date Smoking Tobacco: Never Smokeless Tobacco: Never Alcohol Use Standard Drinks/Week Comments Yes 7 (1 standard drink = 0.6 oz pur e alcohol) Sex and Gender Information Value Date Recorded Sex Assigned at Not on file Gender Identity Not on file Sexual Orientation Not on file documented as of this encounter Progress Notes * Paulina Serrato, OD - 02/16/2018 8:30 AM EDT Encounter Diagnosis Name Primary? Pigmentary glaucoma of both eyes, moderate stage Sona Rodrigez is a 72 y.o. with the following ophthalmic problems: Assessment and Plan: Pigmentary glaucoma OU, stable nerves and IOP -Continue Azopt both eyes 2 times daily, Timolol gel both eyes daily, Latanoprost both eyes nightly Refractive Error OU - Rx given today - Findings and concerns discussed with Sona and she expressed understanding. -Upon Return [address] Regan DFE, OCT NFL documented in this encounter Plan of Treatment Upcoming Encounters Date Type Department Care Team (Late st Contact Info) Description 11/19/2024 9:45 AM EDT Office Visit Ophthalmology at [facility] [place] [address] Augustine Regan MD [facility] [place] [address] documented as of this encounter Procedures Procedure Name Priority Date/Time Associated Diagnosis Comments AUTOMATED VISUAL FIELD - EXTENDED - OU- BOTH EYES Routine 02/16/2018 9:31 AM EDT Pigmentary glaucoma of both eyes, moderate stage documented in this encounter Results * AUTOMATED VISUAL FIELD - EXTENDED - OU- BOTH EYES (02/16/2018 9:31 AM EDT) Anatomical Region Laterality Modality Other Narrative 02/16/2018 9:31 AM EDT Right Eye Threshold was 24-2. Reliability was borderline. Progression has been stable. Findings include inferior nasal step defect. Left Eye Threshold was 24-2. Reliability was borderline. Progression has been stable. Findings include inferior nasal step defect. 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
--- OUTSIDE RECORDS SUMMARY | 2024-07-09 00:19 | XMS_ITS | Encounter Summary ---
Author Organization [facility] Address [facility] [place] [address] Care Team Providers Care Hat And Cap Sewer Name Role Phone Rebecca Kumar MD Primary Care Provider Encounter Details Date Type Department Care Team (Latest Contact Info) Description 10/17/2011 12:15 PM EDT - 10/17/2011 11:59 PM EDT Hospital Encounter XRay at [address] [place] [address] Status post THR (total hip replacement); Hip joint replacement by other means Social History Tobacco Use Types Packs/Day Years [...] this encounter Medications at Time of Discharge Medication Sig Dispensed Refills Start Date End Date torsemide (DEMADEX) 20 mg tablet Take 20 mg by mouth daily. acetaminophen (Tylenol) 500 mg Tablet Take 1,000 mg by mouth every 8 hours as needed. 11/19/2010 traZODone (DESYREL) 50 mg tablet Take 50 mg by mouth nightly. XALATAN 0.005 % ophthalmic solutionIndications:Glauc socorro, pigmentary Place 1 drop into both eyes nightly. 90 day supply 7.5 mL 4 10/17/2011 12/03/2012 TIMOPTIC-XE 0.5 % ophthalmic gel-formingIndications:Pi gmentary open-angle glaucoma(365.13) Place 1 drop into both eyes every morning. 10 mL 11 10/17/2011 12/03/2012 brinzolamide (AZOPT) 1 % ophthalmic suspensionIndications:Pig mentary open-angle glaucoma(365.13) Place 1 drop into both eyes 2 times daily. 10 mL 11 10/17/2011 12/03/2012 NEXIUM 40 mg capsule Take 40 mg by mouth daily. 03/14/2011 02/16/2018 ZESTRIL 10 mg tablet Take 40 mg by mouth daily. 12/26/2010 01/07/2012 traMADol (ULTRAM) 50 mg tablet Take 50 mg by mouth daily. 03/14/2011 08/01/2014 aspirin 81 mg EC tablet Take 81 mg by mouth daily. 05/21/2024 metoprolol tartrate (LOPRESSOR) 50 mg tablet Take 50 mg by mouth 2 times daily. 01/07/2012 nitroGLYcerin (NITROSTAT) 0.4 mg SL tablet 0.4MG = 1 Tablet(s), Sublingual, PRN 10/15/2010 01/07/2012 documented as of this encounter Plan of Treatment Upcoming Encounters Date Type Department Care Team (Late st Contact Info) Description 11/19/2024 9:45 AM EDT Office [place] [address] Augustine Regan MD [facility] [place] [place] [address] documented as of this encounter Procedures Procedure Name Priority Date/Time Associated Diagnosis Comments XR PELVIS AP AND 2 VIEWS BOTH HIPS Routine 10/17/2011 12:31 PM EDT Hip joint replacement by other means documented in this encounter Results * XR PELVIS AP AND 2 VIEWS BOTH HIPS (10/17/2011 12:31 PM EDT) Anatomical Region Laterality Modality Pelvis, Hip N/A Radiographic Jemima ging 10/17/2011 12:3 1 PM EDT Impressions 10/18/2011 10:18 AM EDT IMPRESSION: ?? Bilateral cementless total hip arthroplasties. ?? Short radiolucency around the proximal lateral aspect of the left femoral component, not present on the 2007 examination. Narrative 10/18/2011 10:18 AM EDT AP PELVIS AND TWO VIEWS AND AP AND LATERAL VIEWS OF THE HIP: HISTORY: ??Arthroplasty followup and hip pain. ?? COMPARISON: ??July 2011. ?? FINDINGS: ??Bilateral cementless total hip arthroplasty. A short radiolucency measuring 5 mm in thickness around the lateral proximal femoral component near the greater trochanter, not seen on the 2007 examination, but without change from the July 2011 examination. The cementless right total hip arthroplasty is first noted on the July 2010 examination and is unchanged in appearance and alignment. No periprosthetic fracture. ?? Procedure Note Blanca Liang MD - 10/18/2011 AP PELVIS AND TWO VIEWS AND AP AND LATERAL VIEWS OF THE HIP: HISTORY: Arthroplasty followup and hip pain. COMPARISON: July 2011. FINDINGS: Bilateral cementless total hip arthroplasty. A shortradiolucency measuring 5 mm in thickness around the lateral proximal femoral componentnear the greater trochanter, not seen on the 2007 examination, but withoutchange from the July 2011 examination. The cementless right total hiparthroplasty is first noted on the July 2010 examination and is unchanged inappearance and alignment. No periprosthetic fracture. IMPRESSION IMPRESSION: Bilateral cementless total hip arthroplasties. Short radiolucency around the proximal lateral aspect of the left femoral component, not present on the 2007 examination. Rickey Amador MD IMG DX ORDERABLES documented in this encounter Visit Diagnoses Diagnosis Status post THR (total hip replacement) Hip joint replacement by other means Hip joint replacement by other means documented in this encounter Care Teams Hat And Cap Sewer Relationship Specialty Start Date End Date Rebecca Kumar MD [address] [address] PCP - General 06/19/10 09/22/13 documented as of this encounter
--- OUTSIDE RECORDS SUMMARY | 2024-07-09 00:19 | XMS_ITS | Encounter Summary ---
Author Organization [facility] Address [facility] [place] [address] Care Team Providers Care Ip Attorney Name Role Phone DarlinereemaAmy Vivi MIRAMONTES Primary Care Provider [phone] Reason for Visit * Reason Comments Medication Refill Encounter Details Date Type Department Care Team (Late st Contact Info) Description 06/30/2017 [place] [phone] Papo Pacheco MD [facility] [place] [address] Pigmentary glaucoma of both eyes, moderate stage [...] 9:45 AM EDT Office [place] [address] Augustine Regan MD [facility] [place] [address] documented as of this encounter Visit Diagnoses Diagnosis Pigmentary glaucoma of both eyes, moderate stage Pigmentary open-angle glaucoma documented in this encounter Care Teams Ip Attorney Relationship Specialty Start Date End Date Amy Ramos DO PCP - General 09/23/13 08/17/17 documented as of this encounter
--- OUTSIDE RECORDS SUMMARY | 2024-07-09 00:19 | XMS_ITS | Encounter Summary ---
Author Organization [facility] [place] [address] Care Team Providers Care Electronic Test Technician Name Role Phone VerareemaAym Vivi MIRAMONTES Primary Care Provider [phone] Reason for Visit * Reason Onset Date Comments Medication Refill 12/12/2014 Pharmacy dontae ng about FILIBERTO vs. generics. Encounter Details Date Type Department Care Team (Late st Contact Info) Description 12/12/2014 [place] [address] Fuentes Dunbar MD [facility] [address] [place] [address] Medication Refill (Pharmacy calling about FILIBERTO vs. generics.) Social History Tobacco Use Types Packs/Day Years [...] Telephone Encounter - Lakesha Ramirez COT - 12/13/2014 8:32 AM EDT Sona Rodrigez is a 65 y.o. female With pig glauc ou, suspect age 38 and began elevation of iop at age 45. [facility]. Discs=have gone from init 0.7 to now [...] 9:45 AM EDT Office [place] [address] Augustine Regan MD [facility] [address] documented as of this encounter Visit Diagnoses Diagnosis Pigmentary glaucoma of both eyes, moderate stage Pigmentary open-angle glaucoma documented in this encounter Care Teams Electronic Test Technician Relationship Specialty Start Date End Date Amy Ramos DO PCP - General 09/23/13 08/17/17 documented as of this encounter
--- OUTSIDE RECORDS SUMMARY | 2024-07-09 00:19 | XMS_ITS | Encounter Summary ---
Author Organization [facility] Address [facility] [place] [address] Care Team Providers Care Winding Inspector Name Role Phone DarlinereemaAmy Vivi MIRAMONTES Primary Care Provider [phone] Reason for Visit * Reason Comments Medication Refill Encounter Details Date Type Department Care Team (Late st Contact Info) Description 08/17/2016 Refill [place] [phone] Papo Pacheco MD [facility] DR [place]THAL[place] [address] Pigmentary glaucoma of both eyes, moderate stage [...] 9:45 AM EDT Office Visit [place] [address] Augustine Regan MD [facility] [place] [address] documented as of this encounter Visit Diagnoses Diagnosis Pigmentary glaucoma of both eyes, moderate stage Pigmentary open-angle glaucoma documented in this encounter Care Teams Winding Inspector Relationship Specialty Start Date End Date Amy Ramos DO PCP - General 09/23/13 08/17/17 documented as of this encounter
--- OUTSIDE RECORDS SUMMARY | 2024-07-09 00:19 | XMS_ITS | Encounter Summary ---
Author Organization [facility] [place] [address] Care Team Providers Care Bedspread Folder Name Role Phone Rebecca Kumar MD Primary Care Provider [phone] Reason for Visit * Reason Comments Pigmentary Glaucoma Pigmentary glaucoma, 6-7 mon f/u w/ OCT,OU Encounter Details Date Type Department Care Team (Late st Contact Info) Description 06/30/2013 1:45 PM EST [place] [address] Fuentes Dunbar MD [facility] [place] [address] Pigmentary glaucoma (Primary Dx); Posterior capsular opacification Discharge Disposition: Home Social History Tobacco Use [...] of this encounter Progress Notes * Fuentes Dunbra MD - 06/30/2013 2:53 PM EST Fuentes Antunez, performed the above scribed services and agree with the accuracy of the documentation of this encounter. * Fuentes Dunbar MD - 06/30/2013 2:49 PM EST 01/16/2011 Sona Rodrigez is a 65 [...] on ou due to increased vf loss. VA= [...] and will planyag cap od, dilate od only documented in this encounter Plan of Treatment Upcoming Encounters Date Type Department Care Team (Late st Contact Info) Description 11/19/2024 9:45 AM EDT Office [place] [address] Augustine Regan MD [facility] [place] [address] documented as of this encounter Procedures Procedure Name Priority Date/Time Associated Diagnosis Comments OCT OPTIC NERVE - OU - BOTH EYES Routine 06/30/2013 2:53 PM EST Pigmentary glaucoma documented in this encounter Results * OCT OPTIC [id number] EYES (06/30/2013 2:53 PM EST) Anatomical Region Laterality Modality Other Narrative 06/30/2013 2:53 PM EST No signficant change OU/stable OU 56, 52 Procedure Note Fuentes Dunbar MD - 06/30/2013 No signficant change OU/stable OU 56, 52 Fuentes Dunbar MD OPHTHALMOLOGY SERVIC ES ORDERABLES documented in this encounter Visit Diagnoses Diagnosis Pigmentary glaucoma- Primary Pigmentary open-angle glaucoma Posterior capsular opacification After-cataract, unspecified documented in this encounter Care Teams Bedspread Folder Relationship Specialty Start Date End Date Rebecca Kumar MD [address] [address] PCP - General 06/19/10 09/22/13 documented as of this encounter
--- OUTSIDE RECORDS SUMMARY | 2024-07-09 00:19 | XMS_ITS | Encounter Summary ---
Author Organization [facility] Address [facility] [place] [address] Care Team Providers Care Charging Machine Operator Name Role Phone Tere Maddox DO Primary Care Provider [phone] Reason for Visit * Reason Comments Coronary Artery Disease Follow-up Encounter Details Date Type Department Care Team (Late st Contact Info) Description 09/23/2013 10:10 AM EST Follow-Up Cardiology at [address] [address] Filipe Ricketts MD [facility] [place] [address] Pre-operative examination (Primary Dx) Discharge Disposition: Home Social History [...] Mass Index 32.22 09/23/2013 10:02 AM EST documented in this encounter Progress Notes * Filipe Ricketts MD - 09/23/2013 10:26 AM EST Cardiology Office Note I was asked by this patient's referring doctor to see this patient for their cardiac disease. PCP: TERE MADDOX, DO The patient is a 68 y.o. year old female with: pre-op revision of left hip Chief Complaint Patient presents with ??? Coronary Artery Disease ??? Follow-up Patient Active Problem List Diagnosis ??? Posterior capsular opacification ??? Pigmentary glaucoma ??? Obstructive sleep apnea (adult) (pediatric) 10/25/10 AHI 22 ??? Pseudophakia of both eyes ??? ASCVD (arteriosclerotic cardiovascular disease) Cath -07 showed 65% mid LAD, 40% prox LCx, mild diffuse, 30% prox RCA and 85% mid RCA (s/p 3.5x18 cypher); LVEF 65%. - also happened pre-surgery chest pains and positive stress test ([facility], [facility]) ??? S/P coronary artery stent placement [...] Outpatient Prescriptions Medication Sig Dispense Refill ??? metoprolol tartrate (LOPRESSOR) 50 mg tablet Take 25 mg by mouth 2 times daily. ??? diphenhydrAMINE (BENADRYL) 25 mg tablet Take 25 mg by mouth every 6 hours as needed. ??? XALATAN 0.005 % ophthalmic solution Place 1 drop into both eyes nightly. 2.5 mL 11 ??? [DISCONTINUED] metoprolol succinate (TOPROL-XL) 50 mg 24 hr tablet Take 50 mg by mouth daily. ??? brinzolamide (AZOPT) 1 % ophthalmic suspension Place 1 drop into both eyes 2 times daily. 10 mL11 ??? rosuvastatin (CRESTOR) 10 mg tablet Take 10 mg by mouth daily. ??? NEXIUM 40 mg capsule Take 40 [...] mouth every 8 hours as needed. ??? oxyCODONE 5 mg TbOr Take by mouth. ??? TIMOPTIC-XE 0.5 % ophthalmic gel-forming Place 1 drop into both eyes every morning. 10 mL 11 ??? nitroGLYcerin (NITROSTAT) 0.[address] 1 tablet under the tongue every 5 minutes as needed. 20 tablet 5 ??? traZODone (DESYREL) 50 mg tablet Take 50 mg by mouth nightly. Hydrocodone; Hydromorphone; Oxycodone hcl; Dipivefrin hcl; and Propine Cardiac risk factors: Lipid Status-- Followed in [facility] (on crestor) No results found for this basename: CHLPL, HDL, LDLCHOL, TRIG Diabetes yes() no(x) Current smoking yes() no(x) Hypertension yes(x) no() Intercurrent Events: 1) Hospitalizations--S/P TKR 2) Syncope yes() no (x) 3) AICD status yes () no(x) 4) Pacemaker status yes() no(x) 5) Medication changes since last visit--N/A 6) Home O2 yes() no (x) Test Results: Recent Results (from the past 72 hour(s)) EKG 12-LEAD Component Value Range Ventricular rate 57 Atrial Rate 57 P-R Interval 180 QRS Duration 72 Q-T Interval 434 QTC Calculated (Bezet) 422 Calculated P [place] 2 Calculated R [place] 28 Calculated T [place] 63 INTERPRETATION Value: Sinus bradycardia Otherwise normal ECG When compared with ECG of 01-JUL-2012 09:38, No significant change was found Review of Systems - Negative except needs her left hip re-done Subjective: This lady with known CAD s/p stent placement in 2006 has done well over the years. She has had several orthopedic proicedures is scheduled for a hip revision. She offers no cardiovascularissues. She has no current symptoms of ischemia or CHF. She is tolerating her medications well. Shewatches her diet. She has never had any difficulty with her multiple orthopedic procedures. Her hipis causing significant pain and dysfunction. Objective: Neck veins are visible and not distended. The carotid upstrokes are normal without bruits. The chest is clear. Cardiac sounds are normal. The abdomen is soft and non-tender without organomegaly or mass. There is no edema. The extremities are warm and well perfused. Blood pressure 176/84, pulse 53, resp. rate 16, height 152.4 cm (5'), weight 74.844 kg (165 lb), SpO2 98.00%. Assessment: I am concerned about today's BP. We discussed this at some length and apparently her BPhas recently been noted to be higher. She tells me she used to be on an MAREN inhibitor but this was stopped. Today's EKG remains normal and is unchanged from her last pre-op EKG.I think she can safelyproceed with her planned surgery as scheduled in September, however, I think she ought to follow-up with Dr. Maddox and if her BP remains elevated her MAREN needs to be restarted. Plan: As above. As she gets most of her care elsewhere I would be happy to follow her as necessary on a prn basis. Cc:TERE MADDOX DO documented in this encounter Plan of Treatment Upcoming Encounters Date Type Department Care Team (Late st Contact Info) Description 11/19/2024 9:45 AM EDT Office [place] [address] Augustine Regan MD [facility] [place] [address] documented as of this encounter Procedures Procedure Name Priority Date/Time Associated Diagnosis Comments EKG 12-LEAD Routine 09/23/2013 10:15 AM EST Pre-operative examination documented in this encounter Results * EKG 12 Lead (09/23/2013 10:15 AM EST) Ventricular rate 57 BPM MUSE SYSTEM Atrial Rate 57 BPM MUSE SYSTEM P-R Interval 180 ms MUSE SYSTEM QRS Duration 72 ms MUSE SYSTEM Q-T Interval 434 ms MUSE SYSTEM QTC Calculated (Bezet) 422 ms MUSE SYSTEM Calculated P [place]ide[place] 2 degrees MUSE SYSTEM Calculated R [place] 28 degrees MUSE SYSTEM Calculated T [place] 63 degrees MUSE SYSTEM INTERPRETATION Sinus bradycardia Otherwise normal ECG When compared with ECG of 01-JUL-2012 09:38, No significant change was found I personally reviewed the tracing and edited the fellows interpretation Confirmed by fellow MD Chen, Yoni Alfaro ([id number]) on 09/23/2013 5:20:33 PM Confirmed by MD DAVIS ALAN ([id number]) on 09/24/2013 2:19:43 PM MUSE SYSTEM 09/23/2013 10:1 5 AM EST 09/24/2013 2:19 PM EST Filipe Ricketts MD ECG ORDERABLES MUSE SYSTEM documented in this encounter Visit Diagnoses Diagnosis Pre-operative examination- Primary Preoperative examination, unspecified documented in this encounter Care Teams Charging Machine Operator Relationship Specialty Start Date End Date Tere Maddox DO PCP - General 09/23/13 08/17/17 documented as of this encounter
--- OUTSIDE RECORDS SUMMARY | 2024-07-09 00:19 | XMS_ITS | Encounter Summary ---
Author Organization Formerly [facility] Address [facility] [place] [address] Care Team Providers Care Clothing Supervisor Name Role Phone Jannette Perales SEISMOGRAPH COMPUTER Primary Care Provider [phone] Reason for Visit * Reason Comments Pigmentary Glaucoma 1 yr glaucoma ck Encounter Details Date Type Department Care Team (Late st Contact Info) Description 08/18/2017 8:30 AM EST Office [place] [address] Papo Pacheco MD [facility] [place] [address] Pigmentary glaucoma of both eyes, moderate stage [...] this encounter Patient Instructions * Patient Instructions* Papo Pacheco MD - 08/18/2017 8:30 AM EST HPI Pigmentary Glaucoma Additional comments: 1 yr glaucoma ck Comments Pt here for 1 yr ck for Pigmentary glaucoma Pt reports worsening blurry vision OU, worse at distance x 1 mo Pt notes that both eyes are changing color with the use of glaucoma drops - Says eyes went from brown to black and now there's a ring around the color part Denies Eye Pain Current Drops: * Azopt both eyes 2 times daily * Timolol gel both eyes daily * Latanoprost both eyes nightly Last edited by Papo Pacheco MD on 08/18/2017 9:21 AM. (History) Pigmentary glaucoma of both eyes Assessment: No progressive glaucoma damage on current medical therapy Plan: Continue present meds: * Azopt both eyes 2 times daily * Timolol gel both eyes daily * Latanoprost both eyes nightly Follow-up in 6 more months with repeat [facility] Visual Field and Optical Coherence Tomography - see creative project manager next visit then back to new glaucoma provider once we have one on board For additional information about eye conditions, visit the Eye Facts portion of my website at http://CryptoSeal/eye-education/ and I also started a Glaucoma Patient Group on ii4b (htt [email or web address]/groups/glaucomapatientgroup) for patients to seek help from one another. (Search for Glaucoma Patient Group and then ask to join.) documented in this encounter Progress Notes * Papo Pacheco MD - 08/18/2017 8:30 AM EST Pigmentary glaucoma of both eyes Assessment: No progressive glaucoma damage on current medical therapy Plan: Continue present meds: * Azopt both eyes 2 times daily * Timolol gel both eyes daily * Latanoprost both eyes nightly Follow-up in 6 more months with repeat [place] Visual Field and Optical Coherence Tomography - see creative project manager next visit then back to new glaucoma provider once we have one on board documented in this encounter Miscellaneous Notes * Assessment & Plan Note - Papo Pacheco MD - 08/18/2017 8:43 AM EST Associated Problem(s): Pigmentary glaucoma of both eyes Assessment: No progressive glaucoma damage on current medical therapy Plan: Continue present meds: * Azopt both eyes 2 times daily * Timolol gel both eyes daily * Latanoprost both eyes nightly Follow-up in 6 more months with repeat [place] Visual Field and Optical Coherence Tomography - see creative project manager next visit then back to new glaucoma provider once we have one on board documented in this encounter Plan of Treatment Upcoming Encounters Date Type Department Care Team (Late st Contact Info) Description 11/19/2024 9:45 AM EDT Office Visit Ophthalmology at [facility] [place] [address] Augustine Regan MD [facility] [place] [address] documented as of this encounter Procedures Procedure Name Priority Date/Time Associated Diagnosis Comments AUTOMATED VISUAL FIELD - EXTENDED - OU- BOTH EYES Routine 08/18/2017 9:23 AM EST Pigmentary glaucoma of both eyes, moderate stage OCT OPTIC NERVE - OU - BOTH EYES Routine 08/18/2017 9:22 AM EST Pigmentary glaucoma of both eyes, moderate stage documented in this encounter Results * AUTOMATED VISUAL FIELD - EXTENDED - OU- BOTH EYES (08/18/2017 9:23 AM EST) Anatomical Region Laterality Modality Other Narrative 08/18/2017 9:23 AM EST Right Eye Threshold was 24-2. Strategy was KENNY. Reliability was good. Left Eye Threshold was 24-2. Strategy was KENNY. Reliability was good. Notes Visual Field Results Glaucoma Hemifield Test (GHT) OD: Outside normal limits OS: Outside normal limits Visual Function Index (VFI) OD: 68 % OS: 66 % MD OD: -11.00 dB ? PSD OD: 12.77 dB MD OS: -11.41 dB ??PSD OS: 12.28 dB Interpretation: mod-severe paracentral defects both eyes Papo Pacheco MD OPHTHALMOLOGY SERV ICES ORDERABLES * OCT OPTIC NOIJZ-CU-GERZ EYES (08/18/2017 9:22 AM EST) Anatomical Region Laterality Modality Other Narrative 08/18/2017 9:22 AM EST Right Eye Quality was good. Left Eye Quality was good. Notes Optic nerve report G = 58 OD G = 54 OS Outside normal limits OU Posterior pole report OD-OS asymmetry: n/a Hemisphere asymmetry: thinner inferiorly vs superiorly left eye Papo Pacheco MD OPHTHALMOLOGY SERV ICES ORDERABLES documented in this encounter Visit Diagnoses Diagnosis Pigmentary glaucoma of both eyes, moderate stage- Primary Pigmentary open-angle glaucoma documented in this encounter Care Teams Clothing Supervisor Relationship Specialty Start Date End Date Jannette Perales APRN PCP - General General Internal Medicine 08/18/17 documented as of this encounter
--- OUTSIDE RECORDS SUMMARY | 2024-07-09 00:19 | XMS_ITS | Encounter Summary ---
Author Organization Replaced By [facility] [place] [address] Care Team Providers Care Eligibility Specialist Name Role Phone Amy Ramos Vivi MIRAMONTES Primary Care Provider [phone] Reason for Visit * Reason Comments Pigmentary Glaucoma Encounter Details Date Type Department Care Team (Late st Contact Info) Description 08/22/2016 1:00 PM EST Office Visit [place] [address] Bony Pacheco MD [facility] [address] [place] [address] Pigmentary glaucoma of both eyes, moderate stage [...] * Patient Instructions* Bony Pacheco MD - 08/22/2016 1:00 PM EST REBEKAH Rodrigez is a 70 y.o. female here for a [address] follow [address] Pacheco for pigmentary glaucoma. She reports no vision changes since her last visit on 01/18/16. Current Drops: -Azopt BID OU (2x daily, both eyes) -Timolol gel QAM OU (1x daily in the morning, both eyes) -Latanoprost QHS OU (1x daily at bedtime, both eyes) Patient denies any ocular pain or discomfort at today's visit. DRU Eric has performed the documentation for this encounter in the presence of and acting as a scribe for BONY PACHECO MD. I performed the above scribed service and agree with the accuracy of the documentation in this encounter. Last edited by Bony Pacheco MD on 08/22/2016 1:55 PM. Pigmentary glaucoma of both eyes Assessment: No progressive glaucoma damage on current medical therapy Plan: Continue present meds -Azopt BID OU -Timolol gel QAM OU -Latanoprost QHS OU Follow-up in 6 more months with repeat [place] Visual Field and Optical Coherence Tomography For additional information about eye conditions, visit the Eye Facts portion of my website at http://InRadio/eye-education/ and I also started a Glaucoma Patient Group on BatesHook (htt [email or web address] [email or web address]/[email or web address]) for patients to seek help from one another. (Search for Glaucoma Patient Group and then ask to join.) documented in this encounter Progress Notes * Bony Pacheco MD - 08/22/2016 1:00 PM EST Pigmentary glaucoma of both eyes Assessment: No progressive glaucoma damage on current medical therapy Plan: Continue present meds -Azopt BID OU -Timolol gel QAM OU -Latanoprost QHS OU Follow-up in 6 more months with repeat [place] Visual Field and Optical Coherence Tomography documented in this encounter Miscellaneous Notes * Assessment & Plan Note - Bony Pacheco MD - 08/22/2016 1:55 PM EST Associated Problem(s): Pigmentary glaucoma of both eyes Assessment: No progressive glaucoma damage on current medical therapy Plan: Continue present meds -Azopt BID OU -Timolol gel QAM OU -Latanoprost QHS OU Follow-up in 6 more months with repeat [place] Visual Field and Optical Coherence Tomography documented in this encounter Plan of Treatment Upcoming Encounters Date Type Department Care Team (Late st Contact Info) Description 11/19/2024 9:45 AM EDT Office Visit Ophthalmology at [facility] [place] [address] Augustine Regan MD [facility] [place] [address] documented as of this encounter Procedures Procedure Name Priority Date/Time Associated Diagnosis Comments AUTOMATED VISUAL FIELD - EXTENDED - OU- BOTH EYES Routine 08/22/2016 2:03 PM EST Pigmentary glaucoma of both eyes, moderate stage OCT OPTIC NERVE - OU - BOTH EYES Routine 08/22/2016 2:02 PM EST Pigmentary glaucoma of both eyes, moderate stage documented in this encounter Results * AUTOMATED VISUAL FIELD - EXTENDED - OU- BOTH EYES (08/22/2016 2:03 PM EST) Anatomical Region Laterality Modality Other Narrative 08/22/2016 2:03 PM EST Right Eye Threshold was 24-2. Strategy was KENNY. Reliability was good. Left Eye Threshold was 24-2. Strategy was KENNY. Reliability was good. Notes Visual Field Results Glaucoma Hemifield Test (GHT) OD: Outside normal limits OS: Outside normal limits Visual Function Index (VFI) OD: 68 % OS: 62 % MD OD: -11.34 dB ? PSD OD: 12.24 dB MD OS: -12.81 dB ??PSD OS: 12.94 dB DRU Eric has performed the documentation for this encounter in the presence of and acting as a scribe for BONY PACHECO MD. I performed the above scribed service and agree with the accuracy of the documentation in this encounter. Interpretation: OD: Enlarged blind spot, dense nasal defect, sup and inf central defect, all stable OS: Enlarged blind spot, dense nasal defect, sup central defect, all stable Bony Pacheco MD OPHTHALMOLOGY SERV ICES ORDERABLES * OCT OPTIC [id number]-[id number] EYES (08/22/2016 2:02 PM EST) Anatomical Region Laterality Modality Other Narrative 08/22/2016 2:02 PM EST Right Eye Quality was good. Left Eye Quality was good. Notes Optic nerve report G = 57 OD G = 53 OS Outside normal limits OU Posterior pole report OD-OS asymmetry: No Hemisphere asymmetry: No Progression analysis software not available yet in the [place] Abdiel Bolden, OSC has performed the documentation for this encounter in the presence of and acting as a scribe for BONY PACHECO MD. I performed the above scribed service and agree with the accuracy of the documentation in this encounter. Bony Pacheco MD OPHTHALMOLOGY SERV ICES ORDERABLES documented in this encounter Visit Diagnoses Diagnosis Pigmentary glaucoma of both eyes, moderate stage Pigmentary open-angle glaucoma documented in this encounter Care Teams Eligibility Specialist Relationship Specialty Start Date End Date Amy Ramos DO PCP - General 09/23/13 08/17/17 documented as of this encounter
--- OUTSIDE RECORDS SUMMARY | 2024-07-09 00:19 | XMS_ITS | Encounter Summary ---
Author Organization [facility] Address [facility] [place] [address] Care Team Providers Care Radiologist Name Role Phone VerareemaAmy Vivi MIRAMONTES Primary Care Provider Reason for Visit * Reason Onset Date Comments Medication Refill 01/29/2017 Azopt and TimX E to [facility] Encounter Details Date Type Department Care Team (Late st Contact Info) Description 01/29/2017 Refill [place] [address] Papo Pacheco MD [facility] DR [place]PHTHAL[place] [address] Pigmentary glaucoma of both eyes, moderate stage [...] AM EDT Office [place] [address] Augustine Regan MD [facility] [place] [address] documented as of this encounter Visit Diagnoses Diagnosis Pigmentary glaucoma of both eyes, moderate stage Pigmentary open-angle glaucoma documented in this encounter Care Teams Radiologist Relationship Specialty Start Date End Date Amy Ramos DO PCP - General 09/23/13 08/17/17 documented as of this encounter
--- OUTSIDE RECORDS SUMMARY | 2024-07-09 00:19 | XMS_ITS | Encounter Summary ---
Author Organization [facility] Address [facility] [place] [address] Care Team Providers Care Soil Technician Name Role Phone DarlinereemaAmy Vivi MIRAMONTES Primary Care Provider [phone] Reason for Visit * Reason Comments Medication Refill Encounter Details Date Type Department Care Team (Late st Contact Info) Description 08/15/2016 [place] [phone] Papo Pacheco MD [facility] [place] [address] Pigmentary glaucoma of both eyes, moderate stage [...] 9:45 AM EDT [place] [phone] Augustine Regan MD [facility] [place] [address] documented as of this encounter Visit Diagnoses Diagnosis Pigmentary glaucoma of both eyes, moderate stage Pigmentary open-angle glaucoma documented in this encounter Care Teams Soil Technician Relationship Specialty Start Date End Date Amy Ramos DO PCP - General 09/23/13 08/17/17 documented as of this encounter
--- OUTSIDE RECORDS SUMMARY | 2024-07-09 00:19 | XMS_ITS | Encounter Summary ---
Author Organization [facility] Address [facility] [place] [facility] [place] [address] Care Team Providers Care Clay Mixer Name Role Phone VerareemaAmy Vivi MIRAMONTES Primary Care Provider [phone] Reason for Visit * Reason Onset Date Comments Medication Refill 12/29/2015 Encounter Details Date Type Department Care Team (Late st Contact Info) Description 12/29/2015 [place] [address] Papo Pacheco MD [facility] [place] [address] Pigmentary glaucoma of both eyes, moderate stage [...] 9:45 AM EDT Office [place] [phone] Augustine Regan MD [facility] [place] [address] documented as of this encounter Visit Diagnoses Diagnosis Pigmentary glaucoma of both eyes, moderate stage Pigmentary open-angle glaucoma documented in this encounter Care Teams Clay Mixer Relationship Specialty Start Date End Date Amy Ramos DO PCP - General 09/23/13 08/17/17 documented as of this encounter
--- OUTSIDE RECORDS SUMMARY | 2024-07-09 00:19 | XMS_ITS | Encounter Summary ---
Author Organization Formerly [facility] [place] [address] Care Team Providers Care Mechanical Reliability Engineer Name Role Phone Jannette Perales GUEST ADVISOR Primary Care Provider [phone] Reason for Visit * Reason Onset Date Comments Bumped Appointment 12/12/2018 Encounter Details Date Type Department Care Team (Late st Contact Info) Description 12/12/2018 Telephone [place] [address] Augustine Regan MD [facility] [place] [place] [address] Bumped Appointment Social History Tobacco Use Types Packs/Day Years [...] Miscellaneous Notes * Telephone Encounter - Tasha Reeder - 12/14/2018 9:30 AM EDT Patient returned call. Confirmed appt * Telephone Encounter - Zhanna Granados - 12/12/2018 5:36 PM EDT Left message for pt to call back to reschedule bump appointment - appointment scheduled to hold spot for pt - pt to call back to confirm appointment Return in about 6 months for DIL, HVF documented in this encounter Plan of Treatment Upcoming Encounters Date Type Department Care Team (Late st Contact Info) Description 11/19/2024 9:45 AM EDT Office [place] [address] Augustine Regan MD [facility] [place] [place] [address] documented as of this encounter Visit Diagnoses Not on filedocumented in this encounter Care Teams Mechanical Reliability Engineer Relationship Specialty Start Date End Date Jannette Perales APRN PCP - General General Internal Medicine 08/18/17 documented as of this encounter
--- OUTSIDE RECORDS SUMMARY | 2024-07-09 00:19 | XMS_ITS | Encounter Summary ---
Author Organization [facility] Address [facility] [place] [address] Care Team Providers Care Arrow Point Attacher Name Role Phone VerareemaAmy Vivi MIRAMONTES Primary Care Provider [phone] Reason for Visit * Reason Onset Date Comments Medication Refill 12/28/2015 Azopt and [place] to [place] Encounter Details Date Type Department Care Team (Late Contact Info) Description 12/28/2015 [place] [address] Papo Pacheco MD [facility] [place] [address] Pigmentary glaucoma of both eyes, moderate stage [...] 9:45 AM EDT Office [place] [address] Augustine Regan MD [facility] [place] [address] documented as of this encounter Visit Diagnoses Diagnosis Pigmentary glaucoma of both eyes, moderate stage Pigmentary open-angle glaucoma documented in this encounter Care Teams Arrow Point Attacher Relationship Specialty Start Date End Date Amy Ramos DO PCP - General 09/23/13 08/17/17 documented as of this encounter
--- OUTSIDE RECORDS SUMMARY | 2024-07-09 00:19 | XMS_ITS | Encounter Summary ---
Author Organization Formerly [facility] Address [facility] [place] [address] Care Team Providers Care Damage Assessor Name Role Phone Jannette Perales DANE Primary Care Provider [phone] Reason for Visit * Reason Onset Date Comments Medication Refill 03/08/2019 Latanoprost Encounter Details Date Type Department Care Team (Late st Contact Info) Description 03/08/2019 [place] [phone] Augustine Regan MD [facility] [place] [address] Pigmentary glaucoma of both eyes, moderate stage [...] 9:45 AM EDT Office [place] [phone] Augustine Regan MD [facility] [place] [address] documented as of this encounter Visit Diagnoses Diagnosis Pigmentary glaucoma of both eyes, moderate stage Pigmentary open-angle glaucoma documented in this encounter Care Teams Damage Assessor Relationship Specialty Start Date End Date Jannette Perales APRN PCP - General General Internal Medicine 08/18/17 documented as of this encounter
--- OUTSIDE RECORDS SUMMARY | 2024-07-09 00:19 | XMS_ITS | Encounter Summary ---
Author Organization [facility] [place] [address] Care Team Providers Care Consulting Practice Director Name Role Phone Rebecac Kumar MD Primary Care Provider [phone] Reason for Visit * Reason Comments Bilateral Hip Pain SP SIMON BREONNA DOS R1 , L -09/02/2006 Encounter Details Date Type Department Care Team (Late st Contact Info) Description 11/11/2011 1:30 PM EDT Office [place] [address] Rickey Amador MD [facility] [place] [address] DJD (degenerative joint disease) of knee (Primary Dx); Spinal stenosis of lumbar region Discharge Disposition: Home Social History Tobacco Use [...] Sign Reading Time Taken Comments Blood Pressure 150/88 11/11/2011 1:48 PM EDT Pulse 66 11/11/2011 1:48 PM EDT Temperature - - Respiratory Rate - - Oxygen Saturation - - Inhaled Oxygen Concentration - - Weight 84.4 kg (186 lb) 11/11/2011 1:48 PM EDT Height 152.4 cm (5') 11/11/2011 1:48 PM EDT PT S TATED Body Mass Index 36.33 11/11/2011 1:48 PM EDT documented in this encounter Patient Instructions * Patient Instructions* Stan Gracie Vivi, REY - 11/11/2011 1:48 PM EDT Welcome to Narrable, your secure online access to your electronic medical record at [facility]. Using Narrable you will be able to send messages to your providers, view your test results, renew prescriptions, schedule appointments, and much more. Follow these instructions to enter your personal Narrable account for the first time: 1. Start your internet browser and type [email or web address] into the address bar. 2. In the New User box on the right-hand side of the Welcome page click the link that states, ???I have an activation code.?? 3. On the Identification page, follow these steps: a) Enter your Narrable activation code: [email or web address] b) Expires: 12/26/11 01:48 PM IMPORTANT: This Activation Code will on the above mentioned date. If you do not sign up for Narrable by this date, you will need to request another activation code. c) Enter your date of , using the calendar tool provided. d) Enter your Zip code. e) Select ???submit?? to go to the next page. 4. On the Create Account page, follow these steps: a) Create a Narrable username. This can???t be changed, so choose one you won???t forget. b) Create a password that???s at least six characters long, and that contains at least two numbers.Your password can be changed at any time. Confirm your password by entering it once more. c) Enter your email address. This will be used to alert you to new information. Confirm your email address by entering it once more. d) Enter your security question. This will be used if you forget your password. e) Enter your security answer. Confirm your security answer by entering it once more. f) Select ???submit?? to view your electronic medical record. If you have any questions about Narrable or your Access Code, please call for [place], for [place] or for [place]. If you need technical support, please e-mail [email or web address]. Remember, myD-H is NOT for urgent needs! Always dial 911 for medical emergencies. documented in this encounter Progress Notes * Rickey Amador - 11/11/2011 2:49 PM EDT Ms. Rodrigez is a 66-year-old female who has enjoyed the benefits of bilateral total hip replacement that I did one, four years ago, [id number]-[id number] on the left, more recent one is on the right doqgcxo-xw-ladam. She has had, however, complaints of her back across the spine with pain going down the legs, posterolateral thigh into the calf, brought on by walking. She also has significant arthritis involving the right knee, and this has also been a co-conspirator. The question was whether or not there was an interval change in the left hip that prompted a CAT scan, but looking at all the films while I do think there is a suggestion of a loss of horizontality of the socket, I cannot really talk myself into that after looking at the CAT scan, but more importantly, she has no hip pain. I could put her prone, and I get 45 degrees of internal and external rotation of both hips without any pain or apprehension, and while seated even with axial loading she has no discomfort at all. Her right knee is problematic. It is moderately swollen. She has severe arthritis there, and at the area after an appropriate time-out an injection was given with lidocaine, bupivacaine, and 40 mg of steroid, the patient had excellent amelioration of her symptoms. 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 I think that I can attribute that to the hip as much as I can to the spine, and the possibility of radiculitis or radiculopathy prompting her surgery giving *------* this weakness or very possibly below the level of the instrument in fusion compromising the fourth root and fifth root bilaterally I think has to be considered. At this point in time, just a routine followup for the hip is warranted. The right knee hopefully will make her comfortable, but I suspect, she is fugitive from a joint placement there, but I did make the recommendation that she should see her spine surgeon for reevaluation since she has not seen him in an extended period of time. CC: Rebecca Kumar M.D. documented in this encounter Plan of Treatment Upcoming Encounters Date Type Department Care Team (Late st Contact Info) Description 11/19/2024 9:45 AM EDT Office [place] [address] Augustine Regan MD [facility] [place] [address] documented as of this encounter Visit Diagnoses Diagnosis DJD (degenerative joint disease) of knee- Primary Osteoarthrosis, unspecified whether generalized or localized, lower leg Spinal stenosis of lumbar region Spinal stenosis, lumbar region, without neurogenic claudication documented in this encounter Care Teams Consulting Practice Director Relationship Specialty Start Date End Date Rebecca Kumar MD [address] [address] PCP - General 06/19/10 09/22/13 documented as of this encounter
--- OUTSIDE RECORDS SUMMARY | 2024-07-09 00:19 | XMS_ITS | Encounter Summary ---
Author Organization [facility] Address [facility] [address] Care Team Providers Care Instructional Support Assistant Name Role Phone Rebecca Kumar MD Primary Care Provider [phone] Encounter Details Date Type Department Care Team (Latest Contact Info) Description 10/23/2011 11:00 AM EDT - 10/23/2011 11:59 PM EDT Hospital Encounter XRay at [address] [address] CLINIC, Rebecca Leiva MD [address] [address] Status post hip replacement Discharge Disposition: Home Social History Tobacco Use [...] 4 10/17/2011 12/03/2012 TIMOPTIC-XE 0.5 % ophthalmic gel-formingIndications:Yonis gmentary open-angle glaucoma(365.13) Place 1 drop into both eyes every morning. 10 mL 11 10/17/2011 12/03/2012 brinzolamide (AZOPT) 1 % ophthalmic suspensionIndications:Viri mentary open-angle glaucoma(365.13) Place 1 drop into [...] 10/15/2010 01/07/2012 documented as of this encounter Progress Notes * Blanca Liang MD - 10/23/2011 6:07 PM EDT Sona Rodrigez [id number] left Hip ASPIRATION UNDER FLUOROSCOPY DATE: 10/23/2011 6:08 PM HISTORY: Pain, r/o infection TECHNIQUE: After an extensive conversation with the patient regarding risks and benefits, oral and written consent were obtained. The patient was placed supine on the fluoroscopic table. The left Hipwas prepped and draped in the usual aseptic manner. 1% Lidocaine was used to achieve local anesthesia. Under fluoroscopic guidance, 20 gauge spinal needle was advanced into the joint space. Small amount of air was injected to document needle placement. ~3 cc clear, yellow fluid returned. FINDINGS: 1. Small amount of injected air in the left Hip joint space. 2. 3 cc of clear, yellow fluid aspirated, sent for culture, sensitivity, gram stain and cell count. Fluoroscopy time: 3 sec COMPLICATIONS: None immediate. POST-PROCEDURE CARE: Instructions on monitor of infection, management of post procedure pain were reviewed with patient. IMPRESSION: Uneventful left Hip aspiration. Resident/Fellow: CORONA POWERS MD ATTENDING ATTESTATION: Blanca Antunez MD MS, supervised and was present for the critical and pedraza portions of the procedure. documented in this encounter Miscellaneous Notes * Miscellaneous - Provider, Scanning - 10/29/2011 11:06 AM EDT * Miscellaneous - Provider, Scanning - 10/29/2011 10:31 AM EDT documented in this encounter Plan of Treatment Upcoming Encounters Date Type Department Care Team (Late st Contact Info) Description 11/19/2024 9:45 AM EDT Office [place] [address] Aguustine Regan MD [facility] [place] [address] documented as of this encounter Procedures Procedure Name Priority Date/Time Associated Diagnosis Comments XR FLUORO INJECTION FL DRAIN LARGE JT Routine 10/23/2011 4:38 PM EDT Status post hip replacement JOINT CULTURE STAT 10/23/2011 4:00 PM EDT Status post hip replacement ANAEROBIC CULTURE STAT 10/23/2011 4:0 0 PM EDT Status post hip replacement CELL COUNT BODY FLUID STAT 10/23/2011 4:00 PM EDT Status post hip replacement PROSTHETIC JOINT CULTURE, EXTENDED HOLD, AEROBIC & ANAEROBIC STAT 10/23/2011 3:47 PM EDT Status post hip replacement documented in this encounter Results * XR Fluoro injection FL drain large JT (10/23/2011 4:38 PM EDT) Anatomical Region Laterality Modality N/A Radiographic Jemima ging 10/23/2011 4:38 PM EDT Narrative 10/25/2011 10:35 AM EDT ?left ?? Hip ASPIRATION UNDER FLUOROSCOPY ?DATE: 10/23/2011 6:08 PM ? HISTORY: Pain, r/o infection ? septic hip ?? TECHNIQUE: After an extensive ?? conversation with the patient regarding risks and benefits, oral and written ?? consent were obtained. The patient was placed supine on the fluoroscopic ?? table. The left Hip was prepped and draped in the usual aseptic ?? manner. 1% Lidocaine was used to achieve local anesthesia. Under fluoroscopic ?? guidance, 20 gauge spinal needle was advanced into ?? the joint space. Small amount of air was injected to document needle ?? placement. ~3 cc clear, yellow fluid returned. ?FINDINGS: ?1. ?? Small amount of injected air in the left Hip joint space. ?2. ?? 3 cc of clear, yellow fluid aspirated, sent for culture, sensitivity, gram ?? stain and cell count. ?Fluoroscopy ?? time: 3 ?? sec ? COMPLICATIONS: None immediate. ?POST-PROCEDURE ?? CARE: ?? Instructions on monitor of infection, management of post procedure pain were ?? reviewed with patient. ?IMPRESSION: Uneventful left Hip aspiration. ?Resident/Fellow: CORONA POWERS MD ? ATTENDING ?? ATTESTATION: ?I, ?? Blanca Liang MD MS, supervised and was present for the critical and pedraza ?? portions of the procedure. ? ; ?? {CR} ? ; ?? {CR} ? ; ?? {CR} ? ; ?? {CR} ? ; ?? {CR} ? Film and interpretation reviewed by the attending Procedure Note Blanca Liang MD - 10/25/2011 left Hip ASPIRATION UNDER FLUOROSCOPY DATE: 10/23/2011 6:08 PM HISTORY: Pain, r/o infection ? septic hip TECHNIQUE: After an extensive conversation with the patient regarding risks and benefits, oral andwritten consent were obtained. The patient was placed supine on the fluoroscopic table. The left Hip was prepped and draped in the usual aseptic manner.1% Lidocaine was used to achieve local anesthesia. Under fluoroscopicguidance, 20 gauge spinal needle was advanced into the joint space. Small amountof air was injected to document needle placement. ~3 cc clear, yellow fluid returned. FINDINGS: 1. Small amount of injected air in the leftHip joint space. 2. 3 cc of clear, yellow fluid aspirated, sent forculture, sensitivity, gram stain and cell count. Fluoroscopy time: 3 sec COMPLICATIONS: None immediate. POST-PROCEDURE CARE: Instructions on monitor of infection, management of post procedure pain were reviewedwith patient. IMPRESSION: Uneventful left Hip aspiration.Resident/Fellow: CORONA POWERS MD ATTENDING ATTESTATION: Blanca Antunez MD MS, supervised and was present for the critical and pedraza portions of the procedure. ; {CR} ; {CR} ; {CR} ; {CR} ; {CR} Film and interpretation reviewed by the attending Janice Lockhart MD IMG FLUORO ORDERABLE S * ANAEROBIC CULTURE (10/23/2011 4:00 PM EDT) Anaerobic Culture ? Patient Name: ROOT, SONA L ?Ordered By: JANICE LOCKHART ? MR#: [id number] ?LOC: ??3T ? /Sex: ??1945 (66 years), ? Female ? PROCEDURE: Anaerobic Culture ?SOURCE: Joint Fl ? COLLECTED: 10/23/2011 16:00 ? BODY SITE: Left Hip ? STARTED: 10/23/2011 16:54 ? FINAL REPORT ? Final Report ? Verified:2011 11:16 ? No anaerobic organisms isolated ? PRELIMINARY REPORT ? Preliminary Report ? Verified:2011 13:42 ? No anaerobic organisms isolated to date ? NICOLA TREJO Joint fluid specimen (specimen) LEFT HIP REGION STRUCTURE / Unknown 10/23/2011 4:00 PM EDT 10/23/2011 4:54 PM EDT Narrative Resulting Agency Comment Spec In Lab Janice Lockhart MD MICROBIOLOGY - GENER AL ORDERABLES NICOLA TREJO * JOINT CULTURE (10/23/2011 4:00 PM EDT) Joint Culture ? Patient Name: ROOT, SONA L ?Ordered By: JANICE LOCKHART ? MR#: [id number] ?LOC: ??3T ? /Sex: ??1945 (66 years), ? Female ? PROCEDURE: Joint Culture ?SOURCE: Joint Fl ? COLLECTED: 10/23/2011 16:00 ? BODY SITE: Left Hip ? STARTED: 10/23/2011 16:54 ? STAINS / PREPARATIONS ? Gram Stain Report ? Verified:10/23/19 12 17:21 ? Cytocentrifuge Gram Stain performed ? White Blood Cells seen ? No microorganisms seen. ? Results called to and read back by Janice Lockhart MD ? FINAL REPORT ? Final Report ? Verified:11/06/19 12 08:57 ? No growth at 14 days. ? PRELIMINARY REPORT ? Preliminary Report ? Verified:10/24/19 12 09:17 ? No growth to date. ? Incubation time extended to 14 days. ? TAVONER MILLENNIUM Joint fluid specimen (specimen) LEFT HIP REGION STRUCTURE / Unknown 10/23/2011 4:00 PM EDT 10/23/2011 4:54 PM EDT Narrative Resulting Agency Comment Spec In Lab Janice Lockhart MD MICROBIOLOGY - GENER AL ORDERABLES Performing Organization Address City/[facility]/ZIP Co de Phone Number NICOLA TREJO * Cell Count Body Fluid (10/23/2011 4:00 PM EDT) Body Fluid Source Hip CE RNER MILLENNIUM Color, Fld See Comment CERNER MILLENNIUM Comment:MELINDA Appearance, Fld Cloudy CERN ER MILLENNIUM Nucl Cell BF Ct 70 /mcl CERN ER MILLENNIUM Comment: Counts may be inaccurate due to presence of debris. Counts may be inaccurate due to clumping of cells. If Nucleated Cell Count equals zero, No Scan or Differential will be performed. If Nucleated Cell Count equals 1-5, Smear is scanned but no results are reported unless abnormalities are seen. If Nucleated Cell Count equals 6 or greater, Differential will be reported. Body fluid specimen (specimen) 10/23/2011 4:00 PM EDT 10/23/2011 4:41 PM EDT Narrative Resulting Agency Comment Spec In Lab Janice Lockhart MD BODY FLUIDS AND STOO LS ORDERABLES Performing Organization Address [facility] Co de Phone Number NICOLA TREJO documented in this encounter Visit Diagnoses Diagnosis Status post hip replacement Hip joint replacement by other means documented in this encounter Care Teams Instructional Support Assistant Relationship Specialty Start Date End Date Rebecca Kumar MD [address] [address] PCP - General 06/19/10 09/22/13 documented as of this encounter
--- OUTSIDE RECORDS SUMMARY | 2024-07-09 00:19 | XMS_ITS | Encounter Summary ---
[place] [address] Care Team Providers Care Record Clerk Salesperson Name Role Phone Rebecca Kumar MD Primary Care Provider [phone] Reason for Visit * Reason Onset Date Comments Procedure 12/10/2012 Encounter Details Date Type Department Care Team (Latest Contact Info) Description 12/10/2012 8:40 AM EDT Procedure visit [place] [address] Pigmentary glaucoma (Primary Dx) Social History Tobacco Use Types [...] Progress Notes * Migel Duval MD - 12/10/2012 9:12 AM EDT Please see procedure note for details. MIGEL DUVAL MD documented in this encounter Plan of Treatment Upcoming Encounters Date Type Department Care Team (Late st Contact Info) Description 11/19/2024 9:45 AM EDT Office Visit [place] [address] Augustine Regan MD [facility] DR OPHTHALMOLOGY [place] [id number] documented as of this encounter Procedures Procedure Name Priority Date/Time Associated Diagnosis Comments AUTOMATED VISUAL FIELD - EXTENDED - OU- BOTH EYES Routine 12/10/2012 9:19 AM EDT Pigmentary glaucoma documented in this encounter Results * AUTOMATED VISUAL FIELD - EXTENDED - OU- BOTH EYES (12/10/2012 9:19 AM EDT) Anatomical Region Laterality Modality Other Narrative 12/10/2012 9:19 AM EDT OD: no significant change MD: -11.73 OS: trace worsening inferiorly MD: -14.43 Procedure Note Migel Duval MD - 12/10/2012 OD: no significant change MD: -11.73 OS: trace worsening inferiorly MD: -14.43 Migel Duval MD OPHTHALMOLOGY SERVIC ES ORDERABLES documented in this encounter Visit Diagnoses Diagnosis Pigmentary glaucoma- Primary Pigmentary open-angle glaucoma documented in this encounter Care Teams Record Clerk Salesperson Relationship Specialty Start Date End Date Rebecca Kumar MD [address] [address] PCP - General 06/19/10 09/22/13 documented as of this encounter
--- OUTSIDE RECORDS SUMMARY | 2024-07-09 00:19 | XMS_ITS | Encounter Summary ---
Author Organization [facility] Address [facility] [place] [address] Care Team Providers Care [employer] Umpire Name Role Phone Rebecca Kumar MD Primary Care Provider [phone] Encounter Details Date Type Department Care Team (Latest Contact Info) Description 10/23/2011 3:00 PM EDT - 10/23/2011 11:59 PM EDT Hospital [place] [address] CLINIC, Rickey Islas MD [facility] [place] [address] Status post hip replacement Discharge Disposition: Home [...] 9:45 AM EDT Office [place] [address] Augustine Regan MD [facility] [place] [address] documented as of this encounter Procedures Procedure Name Priority Date/Time Associated Diagnosis Comments CT LOWER EXTREMITY WO CONTRAST Routine 10/23/2011 3:30 PM EDT Status post hip replacement documented in this encounter Results * CT lower extremity WO contrast (10/23/2011 3:30 PM EDT) Anatomical Region Laterality Modality Hip, Leg, Knee, Thigh, Ankle, Foot Computed Tomography 10/23/2011 3:30 PM EDT Narrative 10/23/2011 6:[address] Lower Extermity Without Contrast/LEFT Clinical History hip pain Evaluate bone stock and implant for loosening (if present ? fracture or loosening Comparison October 17, 2011 radiographic. 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 Acetabular component - multiple small osteolytic lesions surrounding the acetabular cup measuring approximately 20 mm. ??No cortical interruption. Femoral component - the femoral component is slightly eccentrically located in the acetabular cup indicating acetabula wear. ??A fine radiolucency surrounding the proximal aspect of the lateral femoral stem is approximately 4 mm. ??No periprosthetic fracture. No muscle atrophy. 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 Procedure Note Blanca Liang MD - 10/23/[address] Lower Extermity Without Contrast/LEFT Clinical History hip pain Evaluate bone stock and implant for loosening (if present ? fracture or loosening Comparison October 17, 2011 radiographic. 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 Acetabular component - multiple small osteolytic lesions surrounding the acetabular cup measuring approximately 20 mm. No cortical interruption. Femoral component - the femoral component is slightly eccentricallylocated in the acetabular cup indicating acetabula wear. A fine radiolucencysurrounding the proximal aspect of the lateral femoral stem is approximately 4 mm. No periprosthetic fracture. No muscle atrophy. 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 Rickey Amador MD IMG CT ORDERABLES documented in this encounter Visit Diagnoses Diagnosis Status post hip replacement Hip joint replacement by other means documented in this encounter Care Teams [employer] Umpire Relationship Specialty Start Date End Date Rebecca Kumar MD [address] [address] PCP - General 06/19/10 09/22/13 documented as of this encounter
--- OUTSIDE RECORDS SUMMARY | 2024-07-09 00:19 | XMS_ITS | Encounter Summary ---
Author Organization [facility] [place] [address] Care Team Providers Care Drafter Castings Name Role Phone Jannette Perales DEMOGRAPHIC ANALYST Primary Care Provider [phone] Reason for Visit * Reason Comments Pigmentary Glaucoma Encounter Details Date Type Department Care Team (Late st Contact Info) Description 09/02/2018 1:45 PM EST Office [place] [address] Augustine Regan MD [facility] [place] [address] Pigmentary glaucoma of both eyes, moderate stage [...] Progress Notes * Augustine Regan MD - 09/02/2018 1:45 PM EST PDG OU: IOP good OCT stable IOL OU: Stable Plan: Continue meds: Azopt both eyes 2 times daily, Timolol gel both eyes daily, Latanoprost both eyes nightly RTC 6 months Dilate, HVF documented in this encounter Plan of Treatment Upcoming Encounters Date Type Department Care Team (Late st Contact Info) Description 11/19/2024 9:45 AM EDT Office Visit Ophthalmology at [facility] [place] [address] Augustine Regan MD [facility] [place] [address] documented as of this encounter Procedures Procedure Name Priority Date/Time Associated Diagnosis Comments OCT ANTERIOR SEGMENT - OU - BOTH EYES Routine 09/02/2018 2:22 PM EST Pigmentary glaucoma of both eyes, moderate stage documented in this encounter Results * OCT Anterior Xcqewsy-DJ-[id number] Eyes (09/02/2018 2:22 PM EST) Anatomical Region Laterality Modality Other Narrative 09/02/2018 2:22 PM EST Right Eye Quality was good. Left Eye Quality was good. Notes Optic nerve report G = 58 OD G = 63 OS outside normal limits OU Interpretation: satble Augustine Regan MD OPHTHALMOLOGY SERVIC ES ORDERABLES documented in this encounter Visit Diagnoses Diagnosis Pigmentary glaucoma of both eyes, moderate stage Pigmentary open-angle glaucoma documented in this encounter Care Teams Drafter Castings Relationship Specialty Start Date End Date Jannette Perales APRN PCP - General General Internal Medicine 08/18/17 documented as of this encounter
--- OUTSIDE RECORDS SUMMARY | 2024-07-09 00:19 | XMS_ITS | Encounter Summary ---
Author Organization [facility] Address [facility] [place] [address] Care Team Providers Care Grey Iron Molder Name Role Phone DarlinereemaAmy Vivi MIRAMONTES Primary Care Provider [phone] Reason for Visit * Reason Comments Pigmentary Glaucoma OU, moderate stage, 6 month f/u Encounter Details Date Type Department Care Team (Late st Contact Info) Description 06/16/2015 10:00 AM EST Office [place] [address] Papo Pacheco MD [facility] [place] [address] Pigmentary glaucoma of both eyes, moderate stage [...] * Patient Instructions* Papo Pacheco MD - 06/16/2015 11:09 AM EST Pigmentary glaucoma of both eyes Assessment: No progressive damage on current medical therapy Plan: Continue present meds Follow-up in 6 more months with repeat Valencia Visual Field and Optical Coherence Tomography For additional information about eye conditions, visit the Eye Facts portion of my website at [email or web address]-education/ and I also started a Glaucoma Patient Group on [employer] (htt ps://[employer].com/groups/glaucomapatientgroup) for patients to seek help from one another. (Search for Glaucoma Patient Group and then ask to join.) documented in this encounter Progress Notes * Papo Pacheco MD - 06/16/2015 11:09 AM EST Pigmentary glaucoma of both eyes Assessment: No progressive damage on current medical therapy Plan: Continue present meds Follow-up in 6 more months with repeat Valencia Visual Field and Optical Coherence Tomography documented in this encounter Miscellaneous Notes * Assessment & Plan Note - Papo Pacheco MD - 06/16/2015 11:09 AM EST Associated Problem(s): Pigmentary glaucoma of both eyes Assessment: No progressive damage on current medical therapy Plan: Continue present meds Follow-up in 6 more months with repeat Valencia Visual Field and Optical Coherence Tomography documented in this encounter Plan of Treatment Upcoming Encounters Date Type Department Care Team (Late st Contact Info) Description 11/19/2024 9:45 AM EDT Office [place] [address] Augustine Regan MD [facility] [place] [address] documented as of this encounter Procedures Procedure Name Priority Date/Time Associated Diagnosis Comments OCT OPTIC NERVE - OU - BOTH EYES Routine 06/16/2015 10:59 AM EST Pigmentary glaucoma of both eyes, moderate stage documented in this encounter Results * OCT OPTIC [id number] EYES (06/16/2015 10:59 AM EST) Anatomical Region Laterality Modality Other Narrative 06/16/2015 11:00 AM EST Right Eye Quality was good. Left Eye Quality was good. Notes Optic nerve report G = 57 OD G = 51 OS outside normal limits OU Posterior pole report OD-OS asymmetry: left thinner vs right Hemisphere asymmetry: n/a right; left inferior thinner vs superior Papo Pacheco MD OPHTHALMOLOGY SERV ICES ORDERABLES documented in this encounter Visit Diagnoses Diagnosis Pigmentary glaucoma of both eyes, moderate stage- Primary Pigmentary open-angle glaucoma documented in this encounter Care Teams Grey Iron Molder Relationship Specialty Start Date End Date Amy Ramos DO PCP - General 09/23/13 08/17/17 documented as of this encounter
--- OUTSIDE RECORDS SUMMARY | 2024-07-09 00:19 | XMS_ITS | Encounter Summary ---
Author Organization [facility] [place] [address] Care Team Providers Care Health Therapist Name Role Phone Amy Ramos Primary Care Provider [phone] Reason for Visit * Reason Comments Pigmentary Glaucoma OU pt here for 6 mon th IOP/HVF/dilate Pseudophakia OU Encounter Details Date Type Department Care Team (Late st Contact Info) Description 01/24/2014 9:00 AM EDT Follow-[place] [address] Fuentes Dunbar MD [facility] 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 female With pig glauc ou, suspect age 38 and began elevation of iop at age 45. Sukhi. Discs=have gone from init 0.7 to now 0.8 ou out to rim inf temp ou; VFs=in w sup bjer [...] 07/26/2013= Yag cap od Plan ck 6m hvfs and dil 01/24/2014= iops = 11 and glc stable; same rx; ck 6m dil octs d * Fuentes Dunbar MD - 01/24/2014 9:57 AM EDT I, Fuentes Dunabr, performed the above scribed services and agree with the accuracy of the documentation of this encounter. Encounter Diagnoses Name Primary? Pigmentary glaucoma of both eyes, moderate stage ??? Pseudophakia of both eyes ??? Posterior capsular opacification, right ??? 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
--- OUTSIDE RECORDS SUMMARY | 2024-07-09 00:20 | XMS_ITS | Encounter Summary ---
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 Pt has noticed for the past 2 weeks that OD gets tired faster when reading or doing close work. Encounter Details Date Type Department Care Team (Late st Contact Info) Description 05/24/2011 9:45 AM EDT [place] [phone] Migel Duval MD [facility] [place] [address] Pigmentary glaucoma of both eyes (Primary Dx) Discharge Disposition: Home Social History [...] Progress Notes * Migel Duval MD - 05/24/2011 10:42 AM EDT 01/16/2011 Sona Rodrigez is a [...] os = bilat steps. Oct 11/04=53/45. Tmax 23/. IOPstatus=9-12 ou on MEDS= chanelle, xal, az. ADR= propine. TARGET<~14 ou. Gonio initial= +5 band 360 ou and full tm thickness ou. Surg= pi ou on . Ce ou on 1999, dgc. Alt ou on 08 due to increased vf loss. VA= 20 ou, was -3.50 my ou. Init =3 kspin that may have decreased over the years. TIDs=0. ie thick brown irides that never allowed visualization! AP length 26.1/26.7. Course: up to 1999 req 3 meds to keep iop below 20 ou. Then iop lowered for awhile after ce ou. Gen subarach heme in . Dil disc photos ? Gonio, ck spindles. 01/16/2011 the tms have lightened considerably ou. No doubt. 05/24/2011 =iops approx 14 ou. Stable ck 5 m Dil hvfs documented in this encounter Nursing Notes * 05/24/2011 9:45 AM EDT >> MIGEL DUVAL MD FriMay 24, 2011 10:48 AM No new problems [facility] >> JESSICA BALTAZAR FriMay 24, 2011 9:44 AM Description:Patient presents with: Pigmentary Glaucoma - 4 months check pig glauc OU. Pt has noticed for the past 2 weeks that OD getstired faster when reading or doing close work. Location: both eye Duration: 4 months Rapidity of Onset:gradual Severity: Condition:Worsening Pain:none Modifying Factors: Associated Symptoms: Pt uses Azopt OU BID; Timoptic OU QAM; Xalatan OU QHS. PI OU in 1990 CE with IOL OU in 1999 YAG cap OD 2004 ALT OD 2008 - OS 2008. documented in this encounter Plan of Treatment Upcoming Encounters Date Type Department Care Team (Late st Contact Info) Description 11/19/2024 9:45 AM EDT Office [place] [address] Augustine Regan MD [facility] [place] [address] documented as of this encounter Procedures Procedure Name Priority Date/Time Associated Diagnosis Comments AUTOMATED VISUAL FIELD - EXTENDED - OU- BOTH EYES Routine 05/24/2011 10:47 AM EDT Pigmentary glaucoma of both eyes documented in this encounter Results * AUTOMATED VISUAL FIELD - EXTENDED - OU- BOTH EYES (05/24/2011 10:47 AM EDT) Anatomical Region Laterality Modality Other Narrative 05/24/2011 10:47 AM EDT od= sup sahra and step and inf bjer ??and os = bilat bjerrums. Procedure Note Migel Duval MD - 05/24/2011 od= sup sahra and step and inf bjer and os = bilat bjerrums. Migel Duval MD OPHTHALMOLOGY SERVIC ES ORDERABLES documented in this encounter Visit Diagnoses Diagnosis Pigmentary glaucoma of both eyes- Primary Pigmentary open-angle glaucoma documented in this encounter Care Teams Stencil Machine Operator Relationship Specialty Start Date End Date Rebecca Kumar MD [address] [address] PCP - General 06/19/10 09/22/13 documented as of this encounter
--- OUTSIDE RECORDS SUMMARY | 2024-07-09 00:20 | XMS_ITS | Encounter Summary ---
Author Organization [facility] [address] Care Team Providers Care Life Skills Teacher Name Role Phone Rebecca Kumar MD Primary Care Provider Encounter Details Date Type Department Care Team (Late st Contact Info) Description 09/13/2010 1:40 PM EST Procedure visit [address] [address] Social History Tobacco Use Types Packs/Day Years Used Date Smoking Tobacco: Never Assessed Sex and Gender Information Value Date Recorded Sex Assigned at Not on file Gender Identity Not on file Sexual Orientation Not on file documented as of this encounter Plan of Treatment Upcoming Encounters Date Type Department Care Team (Late st Contact Info) Description 11/19/2024 9:45 AM EDT Office [place] [address] Augustine Regan MD [facility] [place] [address] documented as of this encounter Visit Diagnoses Not on filedocumented in this encounter Care Teams Life Skills Teacher Relationship Specialty Start Date End Date Rebecca Kumar MD [address] [address] PCP - General 06/19/10 09/22/13 documented as of this encounter
--- OUTSIDE RECORDS SUMMARY | 2024-07-09 00:20 | XMS_ITS | Encounter Summary ---
Author Organization [facility] [place] [id number] Care Team Providers Care Program Coordinator Name Role Phone Rebecca Kumar MD Primary Care Provider [phone] Reason for Visit * Reason Onset Date Comments Medication Problem 03/15/2011 pt wants to c onfirm the timoptic at 0.5% Encounter Details Date Type Department Care Team (Late st Contact Info) Description 03/15/2011 Telephone [place] [address] Fuentes Dunbar MD [facility] [place] [address] Medication Problem (pt wants to confirm the timoptic at 0.5%) Social History Tobacco Use Types Packs/Day Years Used Date Smoking Tobacco: Never Alcohol Use Standard Drinks/Week Comments Yes 7 (1 standard drink = 0.6 oz pur e alcohol) Sex and Gender Information Value Date Recorded Sex Assigned at Not on file Gender Identity Not on file Sexual Orientation Not on file documented as of this encounter Miscellaneous Notes * Telephone Encounter - Filipe Olivares COMT - 03/15/2011 9:53 AM EDT Pt on Timoptic XE. I confirmed that it is 0.5%. She was confused by the percentage of Xalatan. * Telephone Encounter - Uday Dobbins - 03/15/2011 9:13 AM EDT Patient called and wished to confirm the dosage of her timoptic, i let her know wht dr castaneda note and what the medication we have in epic said, she said she does not feel this is right as she believes it was different before. documented in this encounter Plan of Treatment Upcoming Encounters Date Type Department Care Team (Late st Contact Info) Description 11/19/2024 9:45 AM EDT Office [place] [address] Augustine Regan MD [facility] [place] [address] documented as of this encounter Visit Diagnoses Not on filedocumented in this encounter Care Teams Program Coordinator Relationship Specialty Start Date End Date Rebecca Kumar MD [address] [address] PCP - General 06/19/10 09/22/13 documented as of this encounter
--- OUTSIDE RECORDS SUMMARY | 2024-07-09 00:20 | XMS_ITS | Encounter Summary ---
Author Organization [facility] [place] [address] Care Team Providers Care Handle Attacher Name Role Phone Rebecca Kumar MD Primary Care Provider Encounter Details Date Type Department Care Team (Late st Contact Info) Description 07/24/2010 3:10 PM EST Office Visit Cardiology at [address] [address] [facility] [place] [address] Social History Tobacco Use Types Packs/Day Years [...] 9:45 AM EDT Office [place] [address] [facility] [place] [address] documented as of this encounter Visit Diagnoses Not on filedocumented in this encounter Care Teams Handle Attacher Relationship Specialty Start Date End Date Rebecca Kumar MD [address] [address] PCP - General 06/19/10 09/22/13 documented as of this encounter
--- OUTSIDE RECORDS SUMMARY | 2024-07-09 00:20 | XMS_ITS | Encounter Summary ---
Author Organization [facility] Address [facility] [place] [address] Care Team Providers Care Construction Pit Worker Name Role Phone Rebecca Kumar MD Primary Care Provider [phone] Encounter Details Date Type Department Care Team (Late st Contact Info) Description 07/24/2010 4:00 PM EST Office Visit Cardiology at [address] [phone] Papo Kam MD [facility] [place] [address] Discharge Disposition: Home Social History Tobacco Use [...] 9:45 AM EDT Office [place] [address] Augustine Regan MD [facility] [place] [address] documented as of this encounter Visit Diagnoses Not on filedocumented in this encounter Care Teams Construction Pit Worker Relationship Specialty Start Date End Date Rebecca Kumar MD [address] [address] PCP - General 06/19/10 09/22/13 documented as of this encounter
--- OUTSIDE RECORDS SUMMARY | 2024-07-09 00:20 | XMS_ITS | Encounter Summary ---
Author Organization [facility] Address [facility] [address] Care Team Providers Care Call Center Coordinator Name Role Phone Rebecca Kumar MD Primary Care Provider [phone] Reason for Visit * Reason Onset Date Comments Medication Refill 11/16/2010 patient need h er xalatan .005% refilled. Brand name only. 90 day dispense. She only has enough for tonight needs john. Encounter Details Date Type Department Care Team (Late st Contact Info) Description 11/16/2010 [place] [address] Fuentes Dunbar MD [facility] [place] [address] Glaucoma, pigmentary Social History Tobacco Use Types [...] 9:45 AM EDT [place] [address] Augustine Regan MD [facility] [place] [address] documented as of this encounter Visit Diagnoses Diagnosis Glaucoma, pigmentary Pigmentary open-angle glaucoma documented in this encounter Care Teams Call Center Coordinator Relationship Specialty Start Date End Date Rebecca Kumar MD [address] [address] PCP - General 06/19/10 09/22/13 documented as of this encounter
--- OUTSIDE RECORDS SUMMARY | 2024-07-09 00:20 | XMS_ITS | Encounter Summary ---
Author Organization [facility] Address [facility] [place] [address] Care Team Providers Care Assembly Machine Feeder Name Role Phone Rebecca Kumar MD Primary Care Provider [phone] Encounter Details Date Type Department Care Team (Latest Contact Info) Description 03/21/2011 9:41 AM EDT - 03/21/2011 11:59 PM EDT Hospital Encounter XRay at [address] [place] [address] Knee pain, bilateral Social History Tobacco Use Types Packs/Day [...] tablet Take 50 mg by mouth nightly. NEXIUM 40 mg capsule Take 40 mg by mouth daily. 03/14/2011 02/16/2018 ZESTRIL 10 mg tablet Take 40 mg by mouth daily. 12/26/2010 01/07/2012 traMADol (ULTRAM) 50 mg tablet Take 50 mg by mouth daily. 03/14/2011 08/01/2014 TIMOPTIC-XE 0.5 % ophthalmic gel-formingIndications:Pi gmentary open-angle glaucoma(365.13) Place 1 drop into both eyes every morning. 10 mL 11 12/18/2010 10/17/2011 brinzolamide (AZOPT) 1 % ophthalmic suspensionIndications:Pig mentary open-angle glaucoma(365.13) Place 1 drop into both eyes 2 times daily. 10 mL 11 12/18/2010 10/17/2011 atorvastatin (LIPITOR) 20 mg tablet Take 20 mg by mouth daily. 10/17/2011 aspirin 81 mg EC tablet Take 81 mg by mouth daily. 05/21/2024 citalopram (CELEXA) 20 mg tablet Take 20 mg by mouth daily. 10/17/2011 lisinopril (PRINIVIL;ZESTRIL) 40 mg tablet Take 50 mg by mouth daily. 06/24/2011 XALATAN 0.005 % ophthalmic solutionIndications:Glauc socorro, pigmentary Place 1 drop into both eyes nightly. 90 day supply 2.5 mL 4 11/16/2010 10/17/2011 metoprolol tartrate (LOPRESSOR) 50 mg tablet Take 50 mg by mouth 2 times daily. 01/07/2012 nitroGLYcerin (NITROSTAT) 0.4 mg SL tablet 0.4MG = 1 Tablet(s), Sublingual, PRN 10/15/2010 01/07/2012 documented as of this encounter Plan of Treatment Upcoming Encounters Date Type Department Care Team (Late st Contact Info) Description 11/19/2024 9:45 AM EDT Office [place] [address] Augustine Regan MD [facility] [place] [address] documented as of this encounter Procedures Procedure Name Priority Date/Time Associated Diagnosis Comments XR KNEE AP AND LAT BILAT Routine 03/21/2011 10:27 AM EDT Pain in joint, lower leg documented in this encounter Results * XR KNEE BILATERAL1 OR 2 VIEW (03/21/2011 10:27 AM EDT) Anatomical Region Laterality Modality Knee Bilateral Radiographic Jemima ging 03/21/2011 10:2 7 AM EDT Impressions 03/22/2011 10:31 AM EDT IMPRESSION: 1. ??Progression of diffuse osteoarthritis of the knees right side greater than left. ?? 2. ??Unchanged medial compartment osseous densities representing either osteophyte versus intraarticular bodies. ?? Film and interpretation reviewed by the attending Narrative 03/22/2011 10:31 AM EDT TWO VIEWS OF THE LEFT KNEE, AP STANDING AND LATERAL: HISTORY: ??Bilateral knee pain, right greater than left. ?? COMPARISON: ??There are priors for comparison from the date 05/07/10. ?? FINDINGS: ??Again seen is bilateral osteoarthritis of the knees, right being worse than left. ??There is diffuse joint space narrowing. ??Again seen are two osseous densities in the intraarticular space of the right lateral compartment, which may represent either an intraarticular body versus osteophyte. ??No large joint effusion is seen. ?? No fractures seen. ?? Procedure Note Blanca Liang MD - 03/22/2011 TWO VIEWS OF THE LEFT KNEE, AP STANDING AND LATERAL: HISTORY: Bilateral knee pain, right greater than left. COMPARISON: There are priors for comparison from the date 05/07/10. FINDINGS: Again seen is bilateral osteoarthritis of the knees, rightbeing worse than left. There is diffuse joint space narrowing. Again seen aretwo osseous densities in the intraarticular space of the right lateralcompartment, which may represent either an intraarticular body versus osteophyte. Nolarge joint effusion is seen. No fractures seen. IMPRESSION IMPRESSION: 1. Progression of diffuse osteoarthritis of the knees right side greaterthan left. 2. Unchanged medial compartment osseous densities representing either osteophyte versus intraarticular bodies. Film and interpretation reviewed by the attending Halima C Sebas-Marker ELIGIBILITY CLERK IMG DX ORDERA BLES documented in this encounter Visit Diagnoses Diagnosis Knee pain, bilateral Pain in joint, lower leg documented in this encounter Care Teams Assembly Machine Feeder Relationship Specialty Start Date End Date Rebecca Kumar MD [address] [address] PCP - General 06/19/10 09/22/13 documented as of this encounter
--- OUTSIDE RECORDS SUMMARY | 2024-07-09 00:20 | XMS_ITS | Encounter Summary ---
Author Organization [facility] [place] [address] Care Team Providers Care Fiberglass Product Tester Name Role Phone Rebecca Kumar MD Primary Care Provider [phone] Encounter Details Date Type Department Care Team (Latest Contact Info) Description 08/01/2010 11:39 AM EST - 08/05/2010 3:43 PM EST Hospital Encounter [address] [place] [address] Rickey Amador MD [facility] [place] [address] Discharge Disposition: Home with [facility] Social History Tobacco Use Types Packs/Day Years Used Date Smoking Tobacco: Never Assessed Sex and Gender Information Value Date Recorded Sex Assigned at Not on file Gender Identity Not on file Sexual Orientation Not on file documented as of this encounter Last Filed Vital Signs Vital Sign Reading Time Taken Comments Blood Pressure - - Pulse - - Temperature - - Respiratory Rate - - Oxygen Saturation - - Inhaled Oxygen Concentration - - Weight 81.2 kg (178 lb 15.9 oz) 07/24/2010 3:24 PM EST Simultaneous filing. User may not have seen previous data. Height 154.9 cm (5' 0.98) 07/12/2010 2 :20 PM EST Body Mass Index 33.84 07/12/2010 2:20 PM EST documented in this encounter Plan of Treatment Upcoming Encounters Date Type Department Care Team ( Contact Info) Description 11/19/2024 9:45 AM EDT Office [place] [address] Augustine Regan MD [facility] [place] [address] documented as of this encounter Visit Diagnoses Not on filedocumented in this encounter Care Teams Fiberglass Product Tester Relationship Specialty Start Date End Date Rebecca Kumar MD [address] [address] PCP - General 06/19/10 09/22/13 documented as of this encounter
--- OUTSIDE RECORDS SUMMARY | 2024-07-09 00:20 | XMS_ITS | Encounter Summary ---
Author Organization [facility] [place] [address] Care Team Providers Care Communications Supervisor Name Role Phone Rebecca Kumar MD Primary Care Provider [phone] Reason for Visit * Reason Comments Bilateral Hip Pain DOS 07/2007 & 0 Right Knee Pain Encounter Details Date Type Department Care Team (Late st Contact Info) Description 10/17/2011 1:40 PM EDT Office [place] [address] Kd Briceno PA [facility] [place] [address] Status post hip replacement (Primary Dx) Discharge Disposition: Home Social History [...] Sign Reading Time Taken Comments Blood Pressure 142/83 10/17/2011 2:17 PM EDT Pulse 63 10/17/2011 2:17 PM EDT Temperature - - Respiratory Rate - - Oxygen Saturation - - Inhaled Oxygen Concentration - - Weight 84.7 kg (186 lb 11.2 oz) 10/17/2011 2:17 PM EDT Height 152.4 cm (5') 10/17/2011 2:17 PM EDT Body Mass Index 36.46 10/17/2011 2:17 PM EDT documented in this encounter Progress Notes * Kd Briceno PA - 10/17/2011 3:27 PM EDT SURGERY DATE: 09/02/2006 Rickey Amador M.D. Procedure Performed: A left total hip arthroplasty. Summary of Components: All components are from the Rene [employer]ene SROM total hip system: 1. A 16x11, 30+4 lateral femoral stem. 2. A 16B small proximal sleeve. 3. A 52 mm [place] acetabular component with a neutral metal liner. 4. A 36+3 cobalt chrome head. HPI: Ms Rodrigez returns 5 years from her hip replacement. She is aware of more discomfort to her low back and left buttock since a trial of a statin for cholesterol issues. She initially had much more lower and upper extremity pain that resolved after she stopped the medicine. The left sided pain remains problematic. There is no significant groin or anterior thigh pain. Some lateral thigh discomfort. She finds her gait is somewhat awkward due to weakness on the left side. She denies fevers or chills. No SOB or chest pain. Physical Exam: 66 yo female ambulatory with a cane assist; there is left sided lurch and some buttock/low back discomfort. When supine the left leg is slightly shorter. Calves soft and nontender without edema. She is able to straight leg raise with some anterior thigh pain. She is diffusely tender to the anterior and lateral left hip. Passive ROM is well tolerated with little pain. X-rays: At the left hip there is noncemented hip implants; there is seems to be increased verticality of the acetabular component compared to previous. No fracture or dislocation. Assessment: S/P Left BREONNA with concern for implant loosening Plan: I reviewed her films with Dr Amador who agreed that there may be a change in the implant position. For now we'll obtain peripheral labwork and also schedule her for an aspiration and CT scan to evaluate for loosening. documented in this encounter Plan of Treatment Upcoming Encounters Date Type Department Care Team (Late st Contact Info) Description 11/19/2024 9:45 AM EDT Office [place] [address] Augustine Regan MD [facility] [place] [address] documented as of this encounter Procedures Procedure Name Priority Date/Time Associated Diagnosis Comments DIFFERENTIAL, AUTOMATED Routine 10/17/2011 3:32 PM EDT SEDIMENTATION RATE Routine 10/17/2011 3: 32 PM EDT Status post hip replacement CBC (WITH DIFF) Routine 10/17/2011 3:32 PM EDT Status post hip replacement CRP, CARDIAC RISK (HS CRP) Routine 10/17/2011 3:32 PM EDT Status post hip replacement documented [...] Film and interpretation reviewed by the attending Rickey Amador MD IMG FLUORO ORDERABLE S * Cell Count Body Fluid (10/23/2011 4:00 [...] Narrative Resulting Agency Comment Spec In Lab Rickey Amador MD BODY FLUIDS AND STOO LS ORDERABLES [facility] AGUILAREN[facility] * CT lower extremity WO contrast (10/23/2011 [...] wear, osteolysis and loosening. Rickey Amador MD IM CT ORDERABLES * DIFFERENTIAL, AUTOMATED (10/17/2011 3:32 PM EDT) Neutrophil % 58.3 34.0 - 71.0 % CERNER MILLENNIUM Neutrophil Absolute 3.36 1.50 - 6.30 x10(3)/mcL CERNER MILLENNIUM Lymph % 31.2 19.0 - 53.0 % CERNER MILLENNIUM Lymphocytes Abs 1.8 1.0 - 3.6 x10(3)/mcL CERNER MILLENNIUM Monocyte % 6.4 4.0 - 13.0 % CERNER MILLENNIUM Monocyte Abs 0.4 0.2 - 1.0 x10(3)/mcL CERNER MILLENNIUM Eos % 3.6 0.0 - 7.0 % CERNER MILLENNIUM Eosinophils Abs 0.2 0.0 - 0.5 x10(3)/mcL CERNER MILLENNIUM Basophil % 0.3 0.0 - 2.0 % CERNER MILLENNIUM Baso Absolute 0.0 0.0 - 0.2 x10(3)/mcL CERNER MILLENNIUM Immature Gran % 0.20 0.00 - 0.66 % CERNER MILLENNIUM Comment: Immature granulocytes(IG's)percentage and absolute count will include metamyelocytes, myelocytes, and promyelocytes. Blood smears from CBCs yielding IG's will be scanned manually for concordance. If this scan disagrees with the automated IG or if promyelocytes are noted, a manual differential will be performed. Immature Gran Absolute 0.01 0.00 - 0.05 x10(3)/mcL CERNER MILLENNIUM Blood specimen (specimen) 10/17/2011 3:32 PM EDT 10/17/2011 3:37 PM EDT Rickey Amador MD HEMATOLOGY ORDERABLE S [facility] * Sedimentation rate (10/17/2011 3:32 PM EDT) Sedimentation Rate Automated 7 0 - 20 mm/hr [facility] Blood specimen (specimen) 10/17/2011 3:32 PM EDT 10/17/2011 3:37 PM EDT Narrative Resulting Agency Comment Spec In Lab Rickey Amador MD HEMATOLOGY ORDERABLE S Performing Organization Address City/[facility] Co de Phone Number [facility] * High Sensitivity CRP (10/17/2011 3:32 PM EDT) C-Reactive Protein High Sensitivity 0.7 mg/L [facility] Comment: Interpretations: 1) For cardiac risk assessment, two values (fasting or nonfasting sample acceptable) taken at least 2 weeks apart, should be averaged to provide a more reliable estimate of marker level. ??This laboratory uses the recommendations from the AHA/CDC Scientific Statement for interpretations of future risks of cardiovascular events: ? <1.0 mg/L: low risk 1.0 - 3.0 mg/L: moderate risk >3.0 mg/L: high risk groups for future cardiovascular events 2) The general reference range of apparently healthy individuals using this test is <5.0 mg/L (derived from the test package insert) A few words of caution: For cardiac assessment, when a value >10 mg/L is encountered, there should be a search for an acute inflammatory condition or infection (in patients with acute inflammation, the concentration can increase to >500 mg/L). ??The >10 mg/L should be discarded if such a situation exists, since the risk for coronary heart disease cannot be provided, and a repeat specimen, taken at least two weeks after resolution of the acute inflammatory condition, may allow for appraisal of coronary risk information. Please note that significantly decreased CRP values may be obtained from samples taken from patients who have been treated with carboxypenicillins. References: 1. Kiko RAMIREZ et. al. ??AHA/CDC Scientific Statement: Markers of Inflammation and Cardiovascular Disease. ??Circulation 2003; 107:499-511 2. Ale PM. ??Clinical applications of C-reactive protein for cardiovascular disease detection and prevention. ??Circulation 2003; 107:363-369 Blood specimen (specimen) 10/17/2011 3:32 PM EDT 10/17/2011 3:37 PM EDT Narrative Resulting Agency Comment Spec In Lab Rickey Amador MD CHEMISTRY ORDERABLES [facility] * CBC (with Diff) (10/17/2011 3:32 PM EDT) White Blood Cell 5.8 4.0 - 10.0 x10(3)/mcL CERNER MILLENNIUM Red Blood Cell 4.41 3.93 - 5.22 x10(6)/mcL CERNER MILLENNIUM Hemoglobin 13.0 11.2 - 15.7 gm/dL CERNER MILLENNIUM Hematocrit 38.3 34.0 - 45.0 % CERNER MILLENNIUM Mean Cell Volume 86.8 79.0 - 94.0 fL CERNER MILLENNIUM Mean Cell Hemoglobin 29.5 26.6 - 32.2 pg CERNER MILLENNIUM Mean Cell Hemoglobin Concentration 33.9 32.0 - 36.5 gm/dL CERNER MILLENNIUM Platelet 223 145 - 370 x10(3)/mcL CERLORRAINE MILLENNIUM RDW Standard Deviation 41.6 35.0 - 46.0 fL CERNER MILLENNIUM RDW coefficient of variation 13.0 10.9 - 14.4 % CERNER MILLENNIUM Mean Platelet Volume 11.2 9.0 - 12.0 fL CERLORRAINE AGUILARENNIUM Blood specimen (specimen) 10/17/2011 3:32 PM EDT 10/17/2011 3:37 PM EDT Narrative Resulting Agency Comment Spec In Lab Rickey Amador MD HEMATOLOGY ORDERABLE S [facility] documented in this encounter Visit Diagnoses Diagnosis Status post hip replacement- Primary Hip joint replacement by other means Status post hip replacement Hip joint replacement by other means Status post hip replacement Hip joint replacement by other means documented in this encounter Care Teams Communications Supervisor Relationship Specialty Start Date End Date Rebecca Kumar MD [address] [address] PCP - General 06/19/10 09/22/13 documented as of this encounter
--- OUTSIDE RECORDS SUMMARY | 2024-07-09 00:20 | XMS_ITS | Encounter Summary ---
Author Organization [facility] [place] [address] Care Team Providers Care Weaver Wire Loom Name Role Phone Rebecca Kumar MD Primary Care Provider [phone] Reason for Visit * Reason Onset Date Comments Other 08/27/2011 Lab results Encounter Details Date Type Department Care Team (Late st Contact Info) Description 08/27/2011 Telephone [place] [id number] Lakesha Cain, RN Other (Lab results) Social History Tobacco Use Types Packs/Day Years [...] Miscellaneous Notes * Telephone Encounter - Lakesha Cain RN - 08/27/2011 10:46 AM EST Sona Elia called requesting the results of a lab test taking on 08/01/11. Lab test results were Colbolt 12 Chromium 11.8. Pt told that Dr Amador reviewed the results and will send a letter to her. He also stated that these #'s will not change her plan of care as long as she is asymptomatic. He did state that he will have her follow up appointment changed to 6 months instead of 1 year. Pt instructed to call with any questions or concerns. documented in this encounter Plan of Treatment Upcoming Encounters Date Type Department Care Team (Late st Contact Info) Description 11/19/2024 9:45 AM EDT Office [place] [address] Augustine Regan MD [facility] [place] [address] documented as of this encounter Visit Diagnoses Not on filedocumented in this encounter Care Teams Weaver Wire Loom Relationship Specialty Start Date End Date Rebecca Kumar MD [address] [address] PCP - General 06/19/10 09/22/13 documented as of this encounter
--- OUTSIDE RECORDS SUMMARY | 2024-07-09 00:20 | XMS_ITS | Encounter Summary ---
Author Organization [facility] [place] [address] Care Team Providers Care Heating Systems Installer Name Role Phone Rebecca Kumar MD Primary Care Provider [phone] Encounter Details Date Type Department Care Team (Late st Contact Info) Description 10/25/2010 8:30 AM EDT [place] [address] Bogdan Galloway MD [facility] [place] [address] Social History Tobacco Use Types Packs/Day Years [...] 9:45 AM EDT Office [place] [address] Augustine Regan MD [facility] [place] [address] documented as of this encounter Visit Diagnoses Not on filedocumented in this encounter Care Teams Heating Systems Installer Relationship Specialty Start Date End Date Rebecca Kumar MD [address] [id number] PCP - General 11/23/10 2/26/14 documented as of this encounter
--- OUTSIDE RECORDS SUMMARY | 2024-07-09 00:20 | XMS_ITS | Encounter Summary ---
Author Organization [facility] [place] [address] Care Team Providers Care Vendor Analyst Name Role Phone Rebecca Kumar MD Primary Care Provider Reason for Visit * Reason Comments Obstructive Sleep Apnea Encounter Details Date Type Department Care Team (Late st Contact Info) Description 11/06/2010 8:05 PM EDT Procedure [place] [address] Emily Oconnor MD [facility] [place] [address] Obstructive sleep apnea (adult) (pediatric) (Primary Dx) Social History Tobacco Use Types Packs/Day Years Used Date Smoking Tobacco: Never Assessed Sex and Gender Information Value Date Recorded Sex Assigned at Not on file Gender Identity Not on file Sexual Orientation Not on file documented as of this encounter Last Filed Vital Signs Vital Sign Reading Time Taken Comments Blood Pressure 144/93 11/06/2010 8:00 PM EDT Pulse 52 11/06/2010 8:00 PM EDT Temperature - - Respiratory Rate - - Oxygen Saturation 94% 11/06/2010 8:00 PM EDT Inhaled Oxygen Concentration - - Weight 78 kg (172 lb) 11/06/2010 8:00 PM EDT Height 152.4 cm (5') 11/06/2010 8:00 PM EDT Body Mass Index 33.59 11/06/2010 8:00 PM EDT documented in this encounter Progress Notes * Emily Oconnor MD - 11/19/2010 10:38 AM EDT REPORT OF POSITIVE PRESSURE TITRATION History Of Present Illness: Sona Rodrigez is a 65 y.o. female who presents for a polysomnogram. Polysomnography: The patient's sleep was [facility] Sleep was monitored in accordance with recommended AASM guidelines. The recording also included oral/nasal airflow, chest and abdominal respiratory effort, nasal pressure, single channel EKG, intercostalEMG, bilateral tibialis EMG, and oxygen saturation (by pulse oximeter). Type of Positive Pressure Utilized: CPAP Comment: - Sleep/EEG: Sleep efficiency reduced at 66%. Multiple awakenings after sleep onset. N1 sleep mildly elevated. Sleep architecture otherwise normal. Very brief REM was observed at the end of the study. Observed sleeping supine only. - Respiratory: CPAP was titrated from a pressure of 4cm to 16cm. It was difficult to identify an ideal pressure due to awakenings, however there were periods of consolidated sleep with pressures [id number] where there was generally good of obstructive events A pressure of 16 cm pressure was demons trated efficacious in REM sleep supine. Best result was achieved with a full face mask. - EKG: Normal sinus rhythm. - EMG: Unremarkable Assessment: Sona Rodrigez is a 65 y.o. female whose polysomnogram reveals an effective CPAP pressure of 16 cm of water. The need for positive pressure therapy compliance was discussed. Questions about positive pressure were answered. Expectations reviewed. Ms. Rodrigez reports that she preferred the full face mask. She denied any pressure intolerance. Mr. Rodrigez is amenable to proceeding with positivepressure. ICSD diagnosis (code) 327.23 Provisional: Final: Obstructive sleep apnea. Recommendations: 1. CPAP set at a pressure of 16 cm with an small easy fit gel full face mask. Disposition: The patient will be seen in follow-up with in approximately 6-8 weeks. Patient Name: Sona Rodrigez Study Date: 11/06/2010 Sex: Female Subject Code: [id number] Date of : 1945 Referring Physician: Rebecca Kumar M.D. Age: 65 Sleep Specialist: Emily Oconnor M.D. Height: 60.0 Recording Tech: SAMANTHA /HOMERO Weight: 171.9 Project: Cpap B.M.I: 33.6 EKG: NSR Sleep Architecture Start Time: Lights Off: 10:12:25 PM End Time: Lights On: 5:54:33 AM Total Recording Time (TRT): 462.1 Total Sleep Period (TSP): 447.7 Total Sleep Time (TST): 304.5 Sleep Efficiency: 65.9% Sleep Onset: 14.4 Total Stage Shifts: 136 WASO: 143.2 Total Awakenings: 37 REM Periods: 1 REM Latency: 425.5 REM Latency (minus Wake time): 288.5 Stage Results Time (min.) % TST Latency (min.) Wake (after sleep onset): 143.2 - - Stage N1: 49.5 16.3% 0.0 Stage N2: 195.0 64.0% 5.0 Stage N3: 57.5 18.9% 26.5 REM: 2.5 0.8% 425.5 Respiratory Events Central Obstructive Mixed Total Apnea Apnea Apnea Apneas RERA Count: 33 7 1 41 2 Index (events/hr.): 6.5 1.4 0.2 8.1 0.4 Mean Duration (sec.): 15.4 15.8 17.6 15.5 18.6 Longest Event (sec.): 25.4 18.8 17.6 25.4 19.1 REM Count: 0 0 0 0 0 NREM Count: 33 7 1 41 2 REM Index: 0.0 0.0 0.0 0.0 0.0 NREM Index: 6.6 1.4 0.2 8.1 0.4 Respiratory Events (cont) Hypopneas Hypopneas Apneas + OD 4% OD 3%/AR Hypopneas Count: 20 104 165 Index (events/hr.): 3.9 20.5 32.5 Mean Duration (sec.): 22.0 19.0 18.5 Longest Event (sec.): 40.2 32.8 40.2 REM Count: 0 1 1 NREM Count: 20 103 164 REM Index: 0.0 24.0 24.0 NREM Index: 4.0 20.5 32.6 Respiratory Body Position Supine Supine Prone Prone Left Body Position Count Index Count Index Count Duration: 5:04:30 0:00:00 0:00:00 Obstructive Apneas: 7 1.4 N/A N/A N/A Central Apneas: 33 6.5 N/A N/A N/A Mixed Apneas: 1 0.2 N/A N/A N/A Hypopnea OD 4%: 20 3.9 N/A N/A N/A Hypopnea OD 3%: 104 20.5 N/A N/A N/A RERA???s: 2 0.4 N/A N/A N/A Total: 167 32.9 N/A N/A N/A Respiratory Events Events Left Right Right Upright Upright Body Position (cont) Index Count Index Count Index Duration: 0:00:00 0:00:00 Obstructive Apneas: N/A N/A N/A N/A N/A Central Apneas: N/A N/A N/A N/A N/A Mixed Apneas: N/A N/A N/A N/A N/A Hypopnea OD 4%: N/A N/A N/A N/A N/A Hypopnea OD 3%: N/A N/A N/A N/A N/A RERA???s: N/A N/A N/A N/A N/A Total: N/A N/A N/A N/A N/A Body Position Supine Prone Left Right Upright Duration (Min): 304.5 0.0 0.0 0.0 0.0 % TST: 100.0% 0.0% 0.0% 0.0% 0.0% Respiratory Arousals Total NREM REM Respiratory Count: 148 147 1 Respiratory Index (events/hr): 29.2 29.2 24.0 Spontaneous Count: 66 66 0 Spontaneous Index (events/hr): 13.0 13.1 0.0 Total Count: 217 216 1 Total Index (events/hr): 42.8 42.9 24.0 Limb Movements LMs w Arousals LMs w/o Arousals Total LMs (by Sleep Stages) Count Index Count Index Count Index Total Sleep: 3 0.6 11 2.2 14 2.8 N1: 0 0.0 0 0.0 0 0.0 N2: 3 0.9 11 3.4 14 4.3 N3: 0 0.0 0 0.0 0 0.0 REM: 0 0.0 0 0.0 0 0.0 Oxygen Desaturation Count Index Total Sleep Time: 48 9.5 Wake (after sleep onset): 1 0.4 Non-REM: 48 9.5 REM: 0 9.5 Total Recording Time: 49 6.4 Oxygen Saturation Wake NREM REM TST TIB Mean SaO2%: 95.6 94.7 96.0 94.7 95.0 Min. SaO2%: 88.0 87.0 96.0 87.0 87.0 Max. SaO2%: 99.0 99.0 97.0 99.0 99.0 SaO2 < 89% (min): 0.2 0.7 0.0 0.7 0.9 SaO2 < 88% (min): 0.1 0.2 0.0 0.2 0.3 % Time of SaO2 in range 90 - 100%: 99.6% 99.3% 100.0% 99.3% 99.4% 80 - 90%: 0.4% 0.7% 0.0% 0.7% 0.6% 70 - 80%: 0.0% 0.0% 0.0% 0.0% 0.0% 60 - 70%: 0.0% 0.0% 0.0% 0.0% 0.0% 50 - 60%: 0.0% 0.0% 0.0% 0.0% 0.0% <= 50%: 0.0% 0.0% 0.0% 0.0% 0.0% % Artifact / Bad Data: 0.0% 0.0% 0.0% 0.0% 0.0% ETCO2 Wake NREM REM TST TIB Mean ETCO2: N/A N/A N/A N/A N/A Min. ETCO2: N/A N/A N/A N/A N/A Max. ETCO2: N/A N/A N/A N/A N/A % Time of ETCO2 in range > 80 (mmHg): 0.0% 0.0% 0.0% 0.0% 0.0% 70 - 80 (mmHg): 0.0% 0.0% 0.0% 0.0% 0.0% 60 - 69 (mmHg): 0.0% 0.0% 0.0% 0.0% 0.0% 55 - 59 (mmHg): 0.0% 0.0% 0.0% 0.0% 0.0% 50 - 54 (mmHg): 0.0% 0.0% 0.0% 0.0% 0.0% 45 - 49 (mmHg): 0.0% 0.0% 0.0% 0.0% 0.0% 40 - 44 (mmHg): 0.0% 0.0% 0.0% 0.0% 0.0% 35 - 39 (mmHg): 0.0% 0.0% 0.0% 0.0% 0.0% 30 - 34 (mmHg): 0.0% 0.0% 0.0% 0.0% 0.0% 20 - 29 (mmHg): 0.0% 0.0% 0.0% 0.0% 0.0% 0 - 20 (mmHg): 0.0% 0.0% 0.0% 0.0% 0.0% % Artifact / Bad Data: 100.0% 100.0% 100.0% 100.0% 100.0% Heart Rate Wake NREM REM TST TIB Mean HR (bpm): 49.9 49.7 50.9 49.7 49.8 Min. HR (bpm): 46.0 46.0 49.0 46.0 46.0 Max. HR (bpm): 69.0 65.0 57.0 65.0 69.0 % Time in range > 100 (bpm): 0.0% 0.0% 0.0% 0.0% 0.0% 90 - 100 (bpm): 0.0% 0.0% 0.0% 0.0% 0.0% 80 - 90 (bpm): 0.0% 0.0% 0.0% 0.0% 0.0% 70 - 80 (bpm): 0.0% 0.0% 0.0% 0.0% 0.0% 60 - 70 (bpm): 0.8% 0.1% 0.0% 0.1% 0.4% 50 - 60 (bpm): 29.2% 27.2% 40.0% 27.3% 28.1% <= 50 (bpm): 70.0% 72.7% 60.0% 72.6% 71.6% % Artifact / Bad Data: 0.0% 0.0% 0.0% 0.0% 0.0% documented in this encounter Plan of Treatment Upcoming Encounters Date Type Department Care Team (Late st Contact Info) Description 11/19/2024 9:45 AM EDT Office [place] [address] Augustine Regan MD [facility] [place] [address] documented as of this encounter Visit Diagnoses Diagnosis Obstructive sleep apnea (adult) (pediatric)- Primary documented in this encounter Care Teams Vendor Analyst Relationship Specialty Start Date End Date Rebecca Kumar MD [address] [address] PCP - General 06/19/10 09/22/13 documented as of this encounter
--- OUTSIDE RECORDS SUMMARY | 2024-07-09 00:20 | XMS_ITS | Encounter Summary ---
Author Organization [facility] Address [facility] [place] [address] Care Team Providers Care Warehouse Freight Handler Name Role Phone Rebecca Kumar MD Primary Care Provider Encounter Details Date Type Department Care Team (Late st Contact Info) Description 07/12/2010 12:45 PM EST Office [place] [phone] Rickey Amador MD [facility] [place] [address] Discharge Disposition: Home Social History Tobacco Use [...] 9:45 AM EDT Office [place] [address] Augustine Regan MD [facility] [place] [address] documented as of this encounter Visit Diagnoses Not on filedocumented in this encounter Care Teams Warehouse Freight Handler Relationship Specialty Start Date End Date Rebecca Kumar MD [facility] [address] [place] [id number] PCP - General 06/19/10 09/22/13 documented as of this encounter
--- OUTSIDE RECORDS SUMMARY | 2024-07-09 00:20 | XMS_ITS | Encounter Summary ---
Author Organization [facility] Address [facility] [place] [address] Care Team Providers Care Inventory Management Specialist Name Role Phone Rebecca Kumar MD Primary Care Provider [phone] Encounter Details Date Type Department Care Team (Late st Contact Info) Description 07/12/2010 [place] [address] Janice Lockhart MD [facility] OR[place] [address] Social History Tobacco Use Types Packs/Day Years [...] 9:45 AM EDT Office [place] [address] Augustine Regan MD [facility] [place] [address] documented as of this encounter Procedures Procedure Name Priority Date/Time Associated Diagnosis Comments URINALYSIS WITH REFLEX CULTURE Routine 07/12/2010 3:00 PM EST DIFFERENTIAL, AUTOMATED Routine 07/12/2010 2:36 PM EST CREATININE Routine 07/12/2010 2:36 PM EST ABO/RH TYPING Routine 07/12/2010 2:36 PM EST PROTHROMBIN TIME Routine 07/12/2010 2:36 PM EST CBC (WITH DIFF) Routine 07/12/2010 2:36 PM EST ANTIBODY SCREEN Routine 07/12/2010 2:36 PM EST BUN Routine 07/12/2010 2:36 PM EST GLUCOSE Routine 07/12/2010 2:36 PM EST ELECTROLYTES PANEL Routine 07/12/2010 2: 36 PM EST URINE CULTURE Routine 07/12/2010 2:25 PM EST documented in this encounter Results * (ABNORMAL) URINALYSIS WITH MICROSCOPIC (07/12/2010 3:00 PM EST) Glucose, Urine Dipstick Negative Negative mg/dL CERNER MILLENNIUM Protein, Urine Dipstick Negative mg/dL CERNER MILLENNIUM Bilirubin, Urine Dipstick Negative Negative mg/dL CERNER MILLENNIUM Urobilinogen, Urine Dipstick Normal mg/dL CERNER MILLENNIUM pH, Urn (dipstick) 6.0 5.0 - 8.0 CERNER MILLENNIUM Blood, Urine Dipstick Negative mg/dL CERNER MILLENNIUM Ketone, Urine Dipstick Negative mg/dL CERNER MILLENNIUM Nitrite, Urine Dipstick Negative CERNER MILLENNIUM Leukocytes, Urine Dipstick Negative mcL CERNER MILLENNIUM Appearance, Urine Dipstick Clear Clear CERNER MILLENNIUM Specific [place] Urine Automated 1.007 1.002 - 1.030 CERNER MILLENNIUM Color, Urine Dipstick Yellow Yellow CERNER MILLENNIUM RBC, Urine <1 0 - 4 /HPF CERNER MILLENNIUM WBC, Urine <1 0 - 5 /HPF CERNER MILLENNIUM Bacteria, Urine Rare(A) None /HPF CERN ER MILLENNIUM Transitional Epithelial Cells, Urine <1 <=1 /HPF CERNER MILLENNIUM Hyaline Casts, Urine 1 0 - 2 /LPF CERNER MILLENNIUM Urine specimen (specimen) 07/12/2010 3:00 PM EST 07/12/2010 3:05 PM EST Janice Lockhart MD URINE ORDERABLES CERNER MILLENNIUM * REFLEX LAB-ANTIBODY SCREEN (07/12/2010 2:36 PM EST) Ab Screen Interp Negative CERNER MILLENNIUM Expires at [id number] on: [id number] CERNER MILLENNIUM Blood specimen (specimen) 07/12/2010 2:36 PM EST 07/12/2010 3:05 PM EST Janice Lockhart MD BLOOD BANK LAB ORDER GARRETT Performing Organization Address City/[facility] Co de Phone Number [facility] * REFLEX LAB-ABO/RH (07/12/2010 2:36 PM EST) ABORH Type AB Neg CERNER MILLENNIUM Blood specimen (specimen) 07/12/2010 2:36 PM EST 07/12/2010 3:05 PM EST Janice Lockhart MD BLOOD BANK LAB ORDER GARRETT [facility] * ELECTROLYTE PANEL (07/12/2010 2:36 PM EST) Sodium 142 135 - 145 mmol/L CERNER MILLENNIUM Potassium 3.8 3.5 - 5.0 mmol/L CERNER MILLENNIUM Comment: Please note: ??Patients with WBC >100,000 may have falsely elevated Potassium levels. ??For accurate Potassium quantification in these patients send serum separator tube (gold top) for subsequent determinations. ??Contact the Clinical Chemistry Laboratory if there are any questions. Chloride 102 98 - 107 mmol/L CERNER MILLENNIUM Carbon Dioxide 26 22 - 31 mmol/L CERNER MILLENNIUM Anion Gap 14 5 - 15 mmol/L [facility] Blood specimen (specimen) 07/12/2010 2:36 PM EST 07/12/2010 3:05 PM EST Janice Lockhart MD CHEMISTRY ORDERABLES Performing Organization Address City/[facility]/ZIP Co de Phone Number [facility] * (ABNORMAL) CREATININE, SERUM (07/12/2010 2:36 PM EST) Creatinine 1.17 0.70 - 1.20 mg/dL CERNER MILLENNIUM Est Glomerular Filtration Rate 46(L) >=60 [facility] Comment: The National Kidney Disease Education Program (NKDEP) has recommended all laboratories report estimated GFR (eGFR) along with plasma creatinine measurements to assist you with recognition of early kidney disease. Caveats: ??Plasma creatinine should be at steady-state (unchanged within the past week). ??Patient age > = 18 years, and for Americans multiply eGFR by 1.2. At present, NKDEP does NOT recommend using the MDRD equation for drug dosing purposes and pharmacists should continue to use their current dosing methods. In addition, numerical eGFR values greater than 60 ml/min/1.73 square meters should be treated as > 60, and not an exact number due to greater inaccuracies at these higher values. Per NKDEP, they classify normal renal function as any GFR >60ml/min/1.73 square meters; chronic kidney disease when GFR <60, and renal failure when GFR <15. ??This calculation may not be valid for patients with atypical muscle mass (very lean or obese), acute renal failure, and in patients with diabetic kidney disease. References: http://nkdep.nih.gov/resources/NKDEP_Suggestn4Labs_0606_508.pdf http://www.kidney.org/professionals/kls/pdf/faq_gfr.pdf Blood specimen (specimen) 07/12/2010 2:36 PM EST 07/12/2010 3:05 PM EST Janice Lockhart MD CHEMISTRY ORDERABLES [facility] * (ABNORMAL) BUN (07/12/2010 2:36 PM EST) Blood Urea Nitrogen 37(H) 8 - 18 mg/dL [facility] Blood specimen (specimen) 07/12/2010 2:36 PM EST 07/12/2010 3:05 PM EST Janice Lockhart MD CHEMISTRY ORDERABLES Performing Organization Address [facility] Phone Number [facility] * GLUCOSE, RANDOM (07/12/2010 2:36 PM EST) Glucose 135 <=199 mg/dL [facility] Comment:Diabetes: >=200 mg/d L plus symptoms Blood specimen (specimen) 07/12/2010 2:36 PM EST 07/12/2010 3:05 PM EST Janice Lockhart MD CHEMISTRY ORDERABLES Performing Organization Address [facility] Phone Number [facility] * PROTIME-INR (07/12/2010 2:36 PM EST) Prothrombin Time 13.2 12.3 - 14.7 sec [facility] Comment: [facility] Transfusion Committee Guidelines: INR less than 2.0, PTT less than OR equal to 43.5 seconds, or Fibrinogen greater than or equal to 100 mg/dl indicate adequate procoagulant activity for hemostasis in patients without underlying bleeding disorders. International Normalization Ratio 1.0 0.9 - 1.1 [facility] Blood specimen (specimen) 07/12/2010 2:36 PM EST 07/12/2010 3:05 PM EST Janice Lockhart MD HEMATOLOGY ORDERABLE S Performing Organization Address [facility] Phone Number [facility] * REFLEX LAB-A-DIFF (07/12/2010 2:36 PM EST) Neutrophil % 58.8 34.0 - 71.0 % [facility] Neutrophil Absolute 3.10 1.50 - 6.30 x10(3)/mcL CERNER MILLENNIUM Lymph % 28.8 19.0 - 53.0 % CERNER MILLENNIUM Lymphocytes Abs 1.5 1.0 - 3.6 x10(3)/mcL CERNER MILLENNIUM Monocyte % 9.1 4.0 - 13.0 % CERNER MILLENNIUM Monocyte Abs 0.5 0.2 - 1.0 x10(3)/mcL CERNER MILLENNIUM Eos % 2.5 0.0 - 7.0 % CERNER MILLENNIUM Eosinophils Abs 0.1 0.0 - 0.5 x10(3)/mcL CERNER MILLENNIUM Basophil % 0.6 0.0 - 2.0 % CERNER MILLENNIUM Baso Absolute 0.0 0.0 - 0.2 x10(3)/mcL CERNER MILLENNIUM Immature Gran % 0.20 0.00 - 0.66 % CERNER MILLENNIUM Comment: Immature granulocytes(IG's)percentage and absolute count will include metamyelocytes, myelocytes, and promyelocytes. Blood smears from CBC's yielding IG's will be scanned manually for concordance. If this scan disagrees with the automated IG or if promyelocytes are noted, a manual differential will be performed. Immature Gran Absolute 0.01 0.00 - 0.05 x10(3)/mcL CERNER MILLENNIUM Blood specimen (specimen) 07/12/2010 2:36 PM EST 07/12/2010 3:05 PM EST Janice Lockhart MD HEMATOLOGY ORDERABLE S [facility] * CBC (07/12/2010 2:36 PM EST) White Blood Cell 5.3 4.0 - 10.0 x10(3)/mcL CERNER MILLENNIUM Red Blood Cell 4.34 3.93 - 5.22 x10(6)/mcL CERNER MILLENNIUM Hemoglobin 12.7 11.2 - 15.7 gm/dL CERNER MILLENNIUM Hematocrit 38.6 34.0 - 45.0 % CERNER MILLENNIUM Mean Cell Volume 88.9 79.0 - 94.0 fL CERNER MILLENNIUM Mean Cell Hemoglobin 29.3 26.6 - 32.2 pg NICOLA AGUILARENNIUM Mean Cell Hemoglobin Concentration 32.9 32.0 - 36.5 gm/dL NICOLA AGUILARENNIUM Platelet 284 145 - 370 x10(3)/mcL CERLORRAINE AGUILARENNIUM RDW Standard Deviation 40.7 35.0 - 46.0 fL CERLORRAINE AGUILARENNIUM RDW coefficient of variation 12.6 10.9 - 14.4 % CERLORRAINE AGUILARENNIUM Mean Platelet Volume 11.3 9.0 - 12.0 fL [facility]ERLORRAINE AGUILARENNIUM Blood specimen (specimen) 07/12/2010 2:36 PM EST 07/12/2010 3:05 PM EST Janice Lockhart MD HEMATOLOGY ORDERABLE S NICOLA TREJO * URINE CULTURE (07/12/2010 2:25 PM EST) Urine Culture ? Patient Name: ROOT, HERLINDA L ?Ordered By: JANICE LOCKHART ? MR#: [id number] ?LOC: ??4V ? /Sex: ??1945 (64 years), ? Female ? PROCEDURE: Urine Culture ?SOURCE: T CC ? COLLECTED: 07/12/2010 14:25 ? STARTED: 07/12/2010 15:10 ? FINAL REPORT ? Final Report ? Verified:2009 15:02 ? 1,000-9,000 cfu/ml Gram Positive organisms , probable contaminant ? NICOLA AGUILARENNIUM Urine specimen obtained by clean catch procedure (specimen) 07/12/2010 2:25 PM EST 07/12/2010 3:09 PM EST Janice Lockhart MD MICROBIOLOGY - GENER AL ORDERABLES NICOLA TREJO documented in this encounter Visit Diagnoses Not on filedocumented in this encounter Care Teams Inventory Management Specialist Relationship Specialty Start Date End Date Rebecca Kumar MD [address] [address] PCP - General 06/19/10 09/22/13 documented as of this encounter
--- OUTSIDE RECORDS SUMMARY | 2024-07-09 00:20 | XMS_ITS | Encounter Summary ---
Author Organization [facility] [place] [address] Care Team Providers Care Psych Coordinator Name Role Phone Rebecca Kumar MD Primary Care Provider [phone] Reason for Visit * Reason Comments Aftercare Of Tjr s/p right BREONNA 08/01/10 Encounter Details Date Type Department Care Team (Late st Contact Info) Description 08/01/2011 10:30 AM EST [place] [address] Rickey Amador MD [facility] [place] [address] Status post THR (total hip replacement) (Primary Dx); Hip joint replacement by other means Discharge Disposition: Home Social History Tobacco Use [...] - - Weight 81.6 kg (180 lb) 08/01/2011 11:12 AM EST Height 153.7 cm (5' 0.5) 08/01/2011 11:12 AM ES T Body Mass Index 34.58 08/01/2011 11:12 AM EST documented in this encounter Progress Notes * Rickey Amador - 08/06/2011 3:41 PM EST August 06, 2011 Sona Rodrigez RE: Sona Rodrigez A#: [id number] Dear Ms. Rodrigez: I did receive the results of the chrome-cobalt levels that we had sent out to the [facility], and as anticipated, they were higher than normal. Actually, I think they were a little bit higher than I had expected since you only have one hip that has [id number] while your other hip enjoys a polyethylene bearing surface, but it is not high enough for me to be worried nor should you be either, but I do think that since we are going to be seeing each other because this knee is becoming much more of an issue over the next calendar year,then, at that time, I would probably also get an MRI of your metal hip to see if there is any unusual activity around the hip within the substance of the muscles and the bone that contribute to the integrity of the hip joint. If, however, at any time you develop any complaints around that hip particularly if there is other suggestion or there is suspicion of fluid or mass-like effect then we should see each other sooner rather than later. Have a very happy New Year and do not hesitate to contact me if I can provide any further information. Sincerely, Rickey Amador M.D. CC: Rebecca Kumar M.D. General Internal Medicine [address] [place] [address], [address] [place] [address] * Rickey Amador - 08/01/2011 11:29 AM EST Ms. Rodrigez is a four-year status post a [id number] total hip replacement on the left, one-year status post a gzxgg-xv-kzrrhyolqzos total hip replacement on the right, and she is delighted with both her hips. She has no symptoms at either hip and is unaware of any difference between these hips. 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 The patient can get up from a chair without the use of her arms and she walks antalgically again but it is because of the right knee. When seated, I can bring her hip through an excellent range of motion neither pain or apprehension of her hips. Her x-rays of her hip show satisfactory position of the implants, nothing to suggest stress shielding, implant failure, loosening, or malposition. So far so good, but I did explain to the patient the concerns that have been raised recently with [id number], we will get chrome/cobalt levels on her today, and I will contact her in a separate cover when I get that result, but I think she should be all right, but I probably would see her in one year's time for followup with both hips, and where there a good possibility we will see her sooner for her right knee, but the pure electivity of that intervention was once again emphasized. Admonitions about good foot care, dental, and urologic prophylaxis were also repeated. CC: Rebecca Kumar M.D. General Internal Medicine [address], [place] [address] I have made the following determinations: Hip Exam: Left Prior surgery on this joint:Yes Chu Hip Score: Less than 30 degrees of fixed flexion: Yes Less than 10 degrees of fixed adduction: Yes Less than 10 degrees of fixed int rotation in extension: Yes Limb Length discrepancy: 0cm Motion: Total degrees of Flexion: 100 Total degrees of Abduction: 20 Total degrees of Ext Rotation: 35 Total degrees of Adduction: 15 Gait Abnormality: Antalgic Radiographic evidence of joint damage: [0= normal; 1=minimal ; 2= some osteophytes , some narrowing ; 3= moderate osteophytes, significantnarrowing, mild deformity; 4= large osteophytes, marked narrowing, obvious deformity]: 0= normal Skin Integrity: Normal Pulses Palpable: Right PT: Yes Right DP: Yes Motor/Sensory: Left Distal Motor: Normal Distal Sensory: Normal Hip Abductors: 4 and 5 smart documented in this encounter Plan of Treatment Upcoming Encounters Date Type Department Care Team (Late st Contact Info) Description 11/19/2024 9:45 AM EDT Office Visit Ophthalmology at [facility] [place] [address] Augustine Regan MD [facility] [place] [address] documented as of this encounter Procedures Procedure Name Priority Date/Time Associated Diagnosis Comments COBALT LVL Routine 08/01/2011 11:47 AM EST Status post THR (total hip replacement) Hip joint replacement by other means CHROMIUM LEVEL Routine 08/01/2011 11:47 AM EST Status post THR (total hip replacement) Hip joint replacement by other means documented in this encounter Results * (ABNORMAL) Chromium level (08/01/2011 11:47 AM EST) Chromium (NOVEMBER) 11.8(H) <0.3 ng/mL CERN ER MILLENNIUM Comment: Test Performed by: [facility] Dpt of Lab Med and Pathology [address] [place] [address] Director Camp: Jovanny Rebolledo III, M.D. Blood specimen (specimen) 08/01/2011 11:47 AM EST 08/01/2011 2:01 PM EST Rickey Amador MD LAB SEND OUT ORDERAB LES [facility] * (ABNORMAL) [place] Lvl-[place] (08/01/2011 11:47 AM EST) [place] Lvl (NOVEMBER) 12(H) 0.0 - 0.9 ng/mL CERNER MILLENNIUM Comment: Test Performed by: [facility] Dpt of Lab Med and Pathology [address] [place] [address] Director Camp: Jovanny Rebolledo III, M.D. Blood specimen (specimen) 08/01/2011 11:47 AM EST 08/01/2011 2:01 PM EST Rickey Amador MD LAB SEND OUT ORDERAB LES [facility] documented in this encounter Visit Diagnoses Diagnosis Status post THR (total hip replacement)- Primary Hip joint replacement by other means Hip joint replacement by other means documented in this encounter Care Teams Psych Coordinator Relationship Specialty Start Date End Date Rebecca Kumar MD [address] [address] PCP - General 06/19/10 09/22/13 documented as of this encounter
--- OUTSIDE RECORDS SUMMARY | 2024-07-09 00:20 | XMS_ITS | Encounter Summary ---
Author Organization [facility] Address [facility] [place] [address] Care Team Providers Care Flexible Shaft Winder Name Role Phone Rebecca Kumar MD Primary Care Provider [phone] Encounter Details Date Type Department Care Team (Late st Contact Info) Description 08/01/2010 [place] [address] Janice Lockhart MD [facility] [place] [address] Social History Tobacco Use Types Packs/Day Years [...] 9:45 AM EDT Office [place] [address] Augustine Regan MD [facility] [place] [address] documented as of this encounter Procedures Procedure Name Priority Date/Time Associated Diagnosis Comments POCT GLUCOSE Routine 08/05/2010 11:52 AM EST DIFFERENTIAL, AUTOMATED Routine 08/05/2010 7:48 AM EST PROTHROMBIN TIME Routine 08/05/2010 7:48 AM EST CBC (WITH DIFF) Routine 08/05/2010 7:48 AM EST BASIC METABOLIC PANEL Routine 08/05/2010 7:48 AM EST POCT GLUCOSE Routine 08/05/2010 6:00 AM EST POCT GLUCOSE Routine 08/04/2010 8:58 PM EST POCT GLUCOSE Routine 08/04/2010 4:49 PM EST POCT GLUCOSE Routine 08/04/2010 11:48 AM EST DIFFERENTIAL, AUTOMATED STAT 08/04/2010 10:19 AM EST PROTHROMBIN TIME STAT 08/04/2010 10:1 9 AM EST CBC (WITH DIFF) STAT 08/04/2010 10:19 AM EST BASIC METABOLIC PANEL STAT 08/04/2010 10:19 AM EST POCT GLUCOSE Routine 08/04/2010 6:29 AM EST POCT GLUCOSE Routine 08/03/2010 10:22 PM EST POCT GLUCOSE Routine 08/03/2010 4:31 PM EST POCT GLUCOSE Routine 08/03/2010 12:22 PM EST ABO/RH TYPING Routine 08/03/2010 11:14 AM EST ANTIBODY SCREEN Routine 08/03/2010 11:14 AM EST POCT GLUCOSE Routine 08/03/2010 8:50 AM EST POCT GLUCOSE Routine 08/03/2010 6:47 AM EST DIFFERENTIAL, AUTOMATED Routine 08/03/2010 3:00 AM EST CREATININE Routine 08/03/2010 3:00 AM EST PROTHROMBIN TIME Routine 08/03/2010 3:00 AM EST CBC (WITH DIFF) Routine 08/03/2010 3:00 AM EST BUN Routine 08/03/2010 3:00 AM EST ELECTROLYTES PANEL Routine 08/03/2010 3: 00 AM EST POCT GLUCOSE Routine 08/03/2010 12:45 AM EST POCT GLUCOSE Routine 08/02/2010 6:27 PM EST POCT GLUCOSE Routine 08/02/2010 2:37 PM EST DIFFERENTIAL, MANUAL Routine 08/02/2010 10:33 AM EST CREATININE Routine 08/02/2010 10:33 AM EST PROTHROMBIN TIME Routine 08/02/2010 10:3 3 AM EST CBC (WITH DIFF) Routine 08/02/2010 10:33 AM EST BUN Routine 08/02/2010 10:33 AM EST ELECTROLYTES PANEL Routine 08/02/2010 10 :33 AM EST POCT GLUCOSE Routine 08/01/2010 10:44 PM EST POCT GLUCOSE Routine 08/01/2010 5:41 PM EST SURGICAL PATHOLOGY REPORT Routine 08/01/2010 4:33 PM EST documented in this encounter Results * POCT GLUCOMETER ORDER (LAB USE ONLY) (08/05/2010 11:52 AM EST) Glucose, POC 107 70 - 110 mg/dL [facility] MILLENNIUM Comment: Supplemental ranges: <110 mg/dL before meals <200 mg/dL all other times of the day Blood specimen (specimen) 08/05/2010 11:52 AM EST 08/05/2010 11:52 AM EST Janice Lockhart MD POINT OF CARE TEST O RDERABLES Performing Organization Address [facility] de Phone Number NICOLA TREJO * (ABNORMAL) PROTIME-INR (08/05/2010 7:48 AM EST) Prothrombin Time 22.9(H) 12.3 - 14.7 sec [facility]ILLENNI[facility] Comment: [facility] Transfusion Committee Guidelines: INR less than 2.0, PTT less than OR equal to 43.5 seconds, or Fibrinogen greater than or equal to 100 mg/dl indicate adequate procoagulant activity for hemostasis in patients without underlying bleeding disorders. International Normalization Ratio 2.0(H) 0.9 - 1.1 [facility] Blood specimen (specimen) 08/05/2010 7:48 AM EST 08/05/2010 8:09 AM EST Janice Lockhart MD HEMATOLOGY ORDERABLE S Performing Organization Address [facility] Phone Number NICOLA TREJO * (ABNORMAL) BASIC METABOLIC PANEL (NON-FASTING) (08/05/2010 7:48 AM EST) Glucose 117 <=199 mg/dL [facility] MILLENNIUM Comment:Diabetes: >=200 mg/d L plus symptoms Blood Urea Nitrogen 16 8 - 18 mg/dL [facility] MILLENNIUM Creatinine 0.93 0.70 - 1.20 mg/dL [facility] MILLENNIUM Sodium 134(L) 135 - 145 mmol/L [facility] MILLENNIUM Potassium 3.5 3.5 - 5.0 mmol/L [facility] MILLENNIUM Comment: Please note: ??Patients with WBC >100,000 may have falsely elevated Potassium levels. ??For accurate Potassium quantification in these patients send serum separator tube (gold top) for subsequent determinations. ??Contact the Clinical Chemistry Laboratory if there are any questions. Chloride 98 98 - 107 mmol/L [facility] MILLENNIUM Carbon Dioxide 26 22 - 31 mmol/L [facility] MILLENNIUM Anion Gap 10 5 - 15 mmol/L [facility] MILLENNIUM Calcium 9.4 8.5 - 10.5 mg/dL [facility] MILLENNIUM Est Glomerular Filtration Rate >60 >=60 [facility]ERN[facility] MILLENNIUM Comment: The National Kidney Disease Education Program [...] disease. References: http://nkdep.nih.gov/resources/NKDEP_Suggestn4Labs_0606_508.pdf http://www.kidney.org/professionals/kls/pdf/faq_gfr.pdf Blood specimen (specimen) 08/05/2010 7:48 AM EST 08/05/2010 8:09 AM EST Janice Lockhart MD CHEMISTRY ORDERABLES CERLORRAINE MILLENNIUM * (ABNORMAL) REFLEX LAB-A-DIFF (08/05/2010 7:48 AM EST) Neutrophil % 73.1(H) 34.0 - 71.0 % [facility]ERNER MILLENNIUM Neutrophil Absolute 4.70 1.50 - 6.30 x10(3)/mc L [facility]ERN[facility] MILLENNIUM Lymph % 13.2(L) 19.0 - 53.0 % [facility] MILLENNIUM Lymphocytes Abs 0.9(L) 1.0 - 3.6 x10(3)/mc L [facility] MILLENNIUM Monocyte % 9.7 4.0 - 13.0 % [facility] MILLENNIUM Monocyte Abs 0.6 0.2 - 1.0 x10(3)/mc L [facility] MILLENNIUM Eos % 3.6 0.0 - 7.0 % [facility]ERN[facility] MILLENNIUM Eosinophils Abs 0.2 0.0 - 0.5 x10(3)/mc L [facility] MILLENNIUM Basophil % 0.2 0.0 - 2.0 % [facility]ERN[facility] MILLENNIUM Baso Absolute 0.0 0.0 - 0.2 x10(3)/mc L [facility] MILLENNIUM Immature Gran % 0.20 0.00 - 0.66 % [facility] MILLENNIUM Comment: Immature granulocytes(IG's)percentage and absolute count will include metamyelocytes, myelocytes, and promyelocytes. Blood smears from CBCs yielding IG's will be scanned manually for concordance. If this scan disagrees with the automated IG or if promyelocytes are noted, a manual differential will be performed.v Immature Gran Absolute 0.01 0.00 - 0.05 x10(3)/mc L [facility] MILLENNIUM Blood specimen (specimen) 08/05/2010 7:48 AM EST 08/05/2010 8:09 AM EST Janice Lockhart MD HEMATOLOGY ORDERABLE S CERNER MILLENNIUM * (ABNORMAL) CBC (08/05/2010 7:48 AM EST) White Blood Cell 6.4 4.0 - 10.0 x10(3)/mc L [facility]ERN[facility] MILLENNIUM Red Blood Cell 3.68(L) 3.93 - 5.22 x10(6)/mc L [facility]ERN[facility] MILLENNIUM Hemoglobin 11.0(L) 11.2 - 15.7 gm/dL [facility] MILLENNIUM Hematocrit 32.1(L) 34.0 - 45.0 % CERNER MILLENNIUM Mean Cell Volume 87.2 79.0 - 94.0 fL [facility]ERN[facility] MILLENNIUM Mean Cell Hemoglobin 29.9 26.6 - 32.2 pg CERNER MILLENNIUM Mean Cell Hemoglobin Concentration 34.3 32.0 - 36.5 gm/dL [facility]ERNER MILLENNIUM Platelet 208 145 - 370 x10(3)/mc L [facility]ERN[facility] MILLENNIUM RDW Standard Deviation 44.1 35.0 - 46.0 fL [facility]ERN[facility] MILLENNIUM RDW coefficient of variation 13.7 10.9 - 14.4 % [facility]ERNER MILLENNIUM Mean Platelet Volume 11.0 9.0 - 12.0 fL [facility] MILLENNIUM Blood specimen (specimen) 08/05/2010 7:48 AM EST 08/05/2010 8:09 AM EST Janice Lockhart MD HEMATOLOGY ORDERABLE S Performing Organization Address [facility] Phone Number [facility] * POCT GLUCOMETER ORDER (LAB USE ONLY) (08/05/2010 6:00 AM EST) Glucose, POC 91 70 - 110 mg/dL [facility] Comment: Supplemental ranges: <110 mg/dL before meals <200 mg/dL all other times of the day Blood specimen (specimen) 08/05/2010 6:00 AM EST 08/05/2010 6:00 AM EST Janice Lockhart MD POINT OF CARE TEST O RDERACORRINE Performing Organization Address [facility] de Phone Number [facility] * (ABNORMAL) POCT GLUCOMETER ORDER (LAB USE ONLY) (08/04/2010 8:58 PM EST) Glucose, POC 111(H) 70 - 110 mg/dL [facility] Comment: Supplemental ranges: <110 mg/dL before meals <200 mg/dL all other times of the day Blood specimen (specimen) 08/04/2010 8:58 PM EST 08/04/2010 8:58 PM EST Janice Lockhart MD POINT OF CARE TEST O RDERABLES Performing Organization Address [facility] de Phone Number [facility] * POCT GLUCOMETER ORDER (LAB USE ONLY) (08/04/2010 4:49 PM EST) Glucose, POC 104 70 - 110 mg/dL [facility] Comment: Supplemental ranges: <110 mg/dL before meals <200 mg/dL all other times of the day Blood specimen (specimen) 08/04/2010 4:49 PM EST 08/04/2010 4:49 PM EST Janice Lockhart MD POINT OF CARE TEST O RDERABLES Performing Organization Address [facility] de Phone Number [facility] * POCT GLUCOMETER ORDER (LAB USE ONLY) (08/04/2010 11:48 AM EST) Glucose, POC 110 70 - 110 mg/dL [facility] Comment: Supplemental ranges: <110 mg/dL before meals <200 mg/dL all other times of the day Blood specimen (specimen) 08/04/2010 11:48 AM EST 08/04/2010 11:48 AM EST Janice Lockhart MD POINT OF CARE TEST O RDERABLES Performing Organization Address [facility] de Phone Number [facility] * (ABNORMAL) PROTIME-INR (08/04/2010 10:19 AM EST) Prothrombin Time 22.8(H) 12.3 - 14.7 sec [facility] Comment: [facility] Transfusion Committee Guidelines: INR less than 2.0, PTT less than OR equal to 43.5 seconds, or Fibrinogen greater than or equal to 100 mg/dl indicate adequate procoagulant activity for hemostasis in patients without underlying bleeding disorders. International Normalization Ratio 1.9(H) 0.9 - 1.1 [facility] Blood specimen (specimen) 08/04/2010 10:19 AM EST 08/04/2010 10:47 AM EST Janice Lockhart MD HEMATOLOGY ORDERABLE S [facility]OLA PASCUALIUM * BASIC METABOLIC PANEL (NON-FASTING) (08/04/2010 10:19 AM EST) Glucose 135 <=199 mg/dL [facility] MILLENNI[facility] Comment:Diabetes: >=200 mg/d L plus symptoms Blood Urea Nitrogen 14 8 - 18 mg/dL [facility] MILLENNIUM Creatinine 0.89 0.70 - 1.20 mg/dL [facility] MILLENNIUM Sodium 138 135 - 145 mmol/L [facility] MILLENNIUM Potassium 3.8 3.5 - 5.0 mmol/L [facility] MILLENNIUM Comment: Please note: ??Patients with WBC >100,000 may have falsely elevated Potassium levels. ??For accurate Potassium quantification in these patients send serum separator tube (gold top) for subsequent determinations. ??Contact the Clinical Chemistry Laboratory if there are any questions. Chloride 102 98 - 107 mmol/L [facility] MILLENNIUM Carbon Dioxide 28 22 - 31 mmol/L [facility] MILLENNIUM Anion Gap 8 5 - 15 mmol/L [facility] MILLENNIUM Calcium 8.7 8.5 - 10.5 mg/dL [facility] MILLENNIUM Est Glomerular Filtration Rate >60 >=60 [facility] MILLENNIUM Comment: The National Kidney Disease Education Program [...] disease. References: http://nkdep.nih.gov/resources/NKDEP_Suggestn4Labs_0606_508.pdf http://www.kidney.org/professionals/kls/pdf/faq_gfr.pdf Blood specimen (specimen) 08/04/2010 10:19 AM EST 08/04/2010 10:47 AM EST Janice Lockhart MD CHEMISTRY ORDERABLES [facility]ER MILLENNIUM * (ABNORMAL) REFLEX LAB-A-DIFF (08/04/2010 10:19 AM EST) Neutrophil % 78.4(H) 34.0 - 71.0 % [facility]ER MILLENNIUM Neutrophil Absolute 5.82 1.50 - 6.30 x10(3)/mc L [facility] MILLENNIUM Lymph % 11.8(L) 19.0 - 53.0 % [facility] MILLENNIUM Lymphocytes Abs 0.9(L) 1.0 - 3.6 x10(3)/mc L [facility] MILLENNIUM Monocyte % 7.7 4.0 - 13.0 % [facility]ERN[facility] MILLENNIUM Monocyte Abs 0.6 0.2 - 1.0 x10(3)/mc L [facility]ERN[facility] MILLENNIUM Eos % 1.9 0.0 - 7.0 % [facility]ERN[facility] MILLENNIUM Eosinophils Abs 0.1 0.0 - 0.5 x10(3)/mc L [facility] MILLENNIUM Basophil % 0.1 0.0 - 2.0 % [facility] MILLENNIUM Baso Absolute 0.0 0.0 - 0.2 x10(3)/mc L [facility] MILLENNIUM Immature Gran % 0.10 0.00 - 0.66 % [facility] MILLENNIUM Comment: Immature granulocytes(IG's)percentage and absolute count will include metamyelocytes, myelocytes, and promyelocytes. Blood smears from CBCs yielding IG's will be scanned manually for concordance. If this scan disagrees with the automated IG or if promyelocytes are noted, a manual differential will be performed.v Immature Gran Absolute 0.01 0.00 - 0.05 x10(3)/mc L [facility] MILLENNIUM Blood specimen (specimen) 08/04/2010 10:19 AM EST 08/04/2010 10:47 AM EST Janice Lockhart MD HEMATOLOGY ORDERABLE S Performing Organization Address [facility] Co de Phone Number CERLORRAINE AGUILARENNIUM * (ABNORMAL) CBC (08/04/2010 10:19 AM EST) White Blood Cell 7.4 4.0 - 10.0 x10(3)/mc L [facility] MILLENNIUM Red Blood Cell 3.72(L) 3.93 - 5.22 x10(6)/mc L [facility]ERNER MILLENNIUM Hemoglobin 10.9(L) 11.2 - 15.7 gm/dL [facility] MILLENNIUM Hematocrit 32.3(L) 34.0 - 45.0 % CERNER MILLENNIUM Mean Cell Volume 86.8 79.0 - 94.0 fL [facility] MILLENNIUM Mean Cell Hemoglobin 29.3 26.6 - 32.2 pg [facility]ERNER MILLENNIUM Mean Cell Hemoglobin Concentration 33.7 32.0 - 36.5 gm/dL [facility]ERN[facility] MILLENNIUM Platelet 164 145 - 370 x10(3)/mc L CERNER MILLENNIUM RDW Standard Deviation 43.9 35.0 - 46.0 fL CERN[facility] MILLENNIUM RDW coefficient of variation 13.8 10.9 - 14.4 % [facility]ERN[facility] MILLENNIUM Mean Platelet Volume 10.9 9.0 - 12.0 fL [facility]ILLENNI[facility] Blood specimen (specimen) 08/04/2010 10:19 AM EST 08/04/2010 10:47 AM EST Janice Lockhart MD HEMATOLOGY ORDERABLE S NICOLA PASCUALIUM * (ABNORMAL) POCT GLUCOMETER ORDER (LAB USE ONLY) (08/04/2010 6:29 AM EST) Glucose, POC 135(H) 70 - 110 mg/dL [facility]ILL[facility]NI[facility] Comment: Supplemental ranges: <110 mg/dL before meals <200 mg/dL all other times of the day Blood specimen (specimen) 08/04/2010 6:29 AM EST 08/04/2010 6:29 AM EST Janice Lockhart MD POINT OF CARE TEST O NIRAJ Performing Organization Address [facility] de Phone Number [facility] * (ABNORMAL) POCT GLUCOMETER ORDER (LAB USE ONLY) (08/03/2010 10:22 PM EST) Glucose, POC 169(H) 70 - 110 mg/dL [facility] Comment: Supplemental ranges: <110 mg/dL before meals <200 mg/dL all other times of the day Blood specimen (specimen) 08/03/2010 10:22 PM EST 08/03/2010 10:22 PM EST Janice Lockhart MD POINT OF CARE TEST Elisabeth HEALY Performing Organization Address [facility] de Phone Number [facility] * (ABNORMAL) POCT GLUCOMETER ORDER (LAB USE ONLY) (08/03/2010 4:31 PM EST) Glucose, POC 123(H) 70 - 110 mg/dL [facility] MILL[facility] Comment: Supplemental ranges: <110 mg/dL before meals <200 mg/dL all other times of the day Blood specimen (specimen) 08/03/2010 4:31 PM EST 08/03/2010 4:31 PM EST Janice Lockhart MD POINT OF CARE TEST Elisabeth HEALY Performing Organization Address [facility] de Phone Number NICOLA PASCUALIUM * (ABNORMAL) POCT GLUCOMETER ORDER (LAB USE ONLY) (08/03/2010 12:22 PM EST) Glucose, POC 149(H) 70 - 110 mg/dL [facility] MILL[facility] Comment: Supplemental ranges: <110 mg/dL before meals <200 mg/dL all other times of the day Blood specimen (specimen) 08/03/2010 12:22 PM EST 08/03/2010 12:22 PM EST Janice Lockhart MD POINT OF CARE TEST O RDERABLES Performing Organization Address City/[facility]/ZIP Co de Phone Number [facility] * REFLEX LAB-ANTIBODY SCREEN (08/03/2010 11:14 AM EST) Ab Screen Interp Negative [facility] Expires at [id number] on: [id number] [facility] Blood specimen (specimen) 08/03/2010 11:14 AM EST 08/03/2010 11:14 AM EST Janice Lockhart MD BLOOD BANK LAB ORDER GARRETT Performing Organization Address City/[facility] Co de Phone Number [facility] * REFLEX LAB-ABO/RH (08/03/2010 11:14 AM EST) ABORH Type AB Neg [facility] Blood specimen (specimen) 08/03/2010 11:14 AM EST 08/03/2010 11:14 AM EST Janice Lockhart MD BLOOD BANK LAB ORDER GARRETT Performing Organization Address City/[facility]/ZIP Co de Phone Number [facility] * (ABNORMAL) POCT GLUCOMETER ORDER (LAB USE ONLY) (08/03/2010 8:50 AM EST) Glucose, POC 149(H) 70 - 110 mg/dL [facility] Comment: Supplemental ranges: <110 mg/dL before meals <200 mg/dL all other times of the day Blood specimen (specimen) 08/03/2010 8:50 AM EST 08/03/2010 8:50 AM EST Janice Lockhart MD POINT OF CARE TEST O RDERABLES Performing Organization Address [facility] Co de Phone Number [facility] * (ABNORMAL) POCT GLUCOMETER ORDER (LAB USE ONLY) (08/03/2010 6:47 AM EST) Glucose, POC 130(H) 70 - 110 mg/dL [facility]ILL[facility] Comment: Supplemental ranges: <110 mg/dL before meals <200 mg/dL all other times of the day Blood specimen (specimen) 08/03/2010 6:47 AM EST 08/03/2010 6:47 AM EST Janice Lockhart MD POINT OF CARE TEST O RDERABLES Performing Organization Address [facility] Co de Phone Number NICOLA TREJO * (ABNORMAL) PROTIME-INR (08/03/2010 3:00 AM EST) Prothrombin Time 25.1(H) 12.3 - 14.7 sec [facility]ILL[facility] Comment: [facility] Transfusion Committee Guidelines: INR less than 2.0, PTT less than OR equal to 43.5 seconds, or Fibrinogen greater than or equal to 100 mg/dl indicate adequate procoagulant activity for hemostasis in patients without underlying bleeding disorders. International Normalization Ratio 2.2(H) 0.9 - 1.1 [facility] Blood specimen (specimen) 08/03/2010 3:00 AM EST 08/03/2010 3:12 AM EST Janice Lockhart MD HEMATOLOGY ORDERABLE S Performing Organization Address [facility] Phone Number NICOLA TREJO * (ABNORMAL) ELECTROLYTE PANEL (08/03/2010 3:00 AM EST) Sodium 132(L) 135 - 145 mmol/L [facility]ILLENNI[facility] Potassium 3.8 3.5 - 5.0 mmol/L [facility] Comment: Please note: ??Patients with WBC >100,000 may have falsely elevated Potassium levels. ??For accurate Potassium quantification in these patients send serum separator tube (gold top) for subsequent determinations. ??Contact the Clinical Chemistry Laboratory if there are any questions. Chloride 103 98 - 107 mmol/L [facility] MILLENNI[facility] Carbon Dioxide 24 22 - 31 mmol/L [facility] MILLENNI[facility] Anion Gap 5 5 - 15 mmol/L [facility] MILLEN[facility] Blood specimen (specimen) 08/03/2010 3:00 AM EST 08/03/2010 3:12 AM EST Janice Lockhart MD CHEMISTRY ORDERABLES NICOLA TREJO * (ABNORMAL) CREATININE, SERUM (08/03/2010 3:00 AM EST) Creatinine 1.06 0.70 - 1.20 mg/dL [facility] Est Glomerular Filtration Rate 52(L) >=60 [facility] Comment: The National Kidney Disease Education Program [...] disease. References: http://nkdep.nih.gov/resources/NKDEP_Suggestn4Labs_0606_508.pdf http://www.kidney.org/professionals/kls/pdf/faq_gfr.pdf Blood specimen (specimen) 08/03/2010 3:00 AM EST 08/03/2010 3:12 AM EST Janice Lockhart MD CHEMISTRY ORDERABLES NICOLA TREJO * BUN (08/03/2010 3:00 AM EST) Blood Urea Nitrogen 12 8 - 18 mg/dL [facility] Blood specimen (specimen) 08/03/2010 3:00 AM EST 08/03/2010 3:12 AM EST Janice Lockhart MD CHEMISTRY ORDERABLES CERNER JEFFENNIUM * (ABNORMAL) REFLEX LAB-A-DIFF (08/03/2010 3:00 AM EST) Neutrophil % 71.3(H) 34.0 - 71.0 % [facility] MILLENNIUM Neutrophil Absolute 4.60 1.50 - 6.30 x10(3)/mc L [facility] MILLENNIUM Lymph % 18.3(L) 19.0 - 53.0 % [facility]ERNER MILLENNIUM Lymphocytes Abs 1.2 1.0 - 3.6 x10(3)/mc L [facility] MILLENNIUM Monocyte % 7.8 4.0 - 13.0 % [facility] MILLENNIUM Monocyte Abs 0.5 0.2 - 1.0 x10(3)/mc L [facility]ERNER MILLENNIUM Eos % 2.2 0.0 - 7.0 % [facility]ER MILLENNIUM Eosinophils Abs 0.1 0.0 - 0.5 x10(3)/mc L [facility] MILLENNIUM Basophil % 0.2 0.0 - 2.0 % [facility] MILLENNIUM Baso Absolute 0.0 0.0 - 0.2 x10(3)/mc L [facility] MILLENNIUM Immature Gran % 0.20 0.00 - 0.66 % [facility]ILL[facility] Comment: Immature granulocytes(IG's)percentage and absolute count will include metamyelocytes, myelocytes, and promyelocytes. Blood smears from CBCs yielding IG's will be scanned manually for concordance. If this scan disagrees with the automated IG or if promyelocytes are noted, a manual differential will be performed.v Immature Gran Absolute 0.01 0.00 - 0.05 x10(3)/mc L [facility] MILLENNI[facility] Blood specimen (specimen) 08/03/2010 3:00 AM EST 08/03/2010 3:12 AM EST Janice Lockhart MD HEMATOLOGY ORDERABLE S [facility] * (ABNORMAL) CBC (08/03/2010 3:00 AM EST) White Blood Cell 6.4 4.0 - 10.0 x10(3)/mc L [facility] MILL[facility] Red Blood Cell 2.65(L) 3.93 - 5.22 x10(6)/mc L CERNER MILLENNIUM Hemoglobin 7.8(L) 11.2 - 15.7 gm/dL [facility] MILLENNIUM Hematocrit 23.8(L) 34.0 - 45.0 % CERNER MILLENNIUM Mean Cell Volume 89.8 79.0 - 94.0 fL [facility]ERNER MILLENNIUM Mean Cell Hemoglobin 29.4 26.6 - 32.2 pg CERNER MILLENNIUM Mean Cell Hemoglobin Concentration 32.8 32.0 - 36.5 gm/dL [facility]ERNER MILLENNIUM Platelet 158 145 - 370 x10(3)/mc L [facility]ERNER MILLENNIUM RDW Standard Deviation 42.1 35.0 - 46.0 fL CERNER MILLENNIUM RDW coefficient of variation 13.0 10.9 - 14.4 % [facility]ERNER MILLENNIUM Mean Platelet Volume 10.3 9.0 - 12.0 fL [facility]ILLEN[facility] Blood specimen (specimen) 08/03/2010 3:00 AM EST 08/03/2010 3:12 AM EST Janice Lockhart MD HEMATOLOGY ORDERABLE S Performing Organization Address [facility] de Phone Number NICOLA TREJO * (ABNORMAL) POCT GLUCOMETER ORDER (LAB USE ONLY) (08/03/2010 12:45 AM EST) Glucose, POC 181(H) 70 - 110 mg/dL [facility] Comment: Supplemental ranges: <110 mg/dL before meals <200 mg/dL all other times of the day Blood specimen (specimen) 08/03/2010 12:45 AM EST 08/03/2010 12:45 AM EST Janice Lockhart MD POINT OF CARE TEST O RDERABLES Performing Organization Address [facility] Co de Phone Number CERNER MILLENNIUM * (ABNORMAL) POCT GLUCOMETER ORDER (LAB USE ONLY) (08/02/2010 6:27 PM EST) Glucose, POC 157(H) 70 - 110 mg/dL [facility]ERLORRAINE AGUILARENNIUM Comment: Supplemental ranges: <110 mg/dL before meals <200 mg/dL all other times of the day Blood specimen (specimen) 08/02/2010 6:27 PM EST 08/02/2010 6:27 PM EST Janice Lockhart MD POINT OF CARE TEST O RDERABLES Performing Organization Address City/[facility] Co de Phone Number NICOLA TREJO * (ABNORMAL) POCT GLUCOMETER ORDER (LAB USE ONLY) (08/02/2010 2:37 PM EST) Glucose, POC 125(H) 70 - 110 mg/dL [facility] Comment: Supplemental ranges: <110 mg/dL before meals <200 mg/dL all other times of the day Blood specimen (specimen) 08/02/2010 2:37 PM EST 08/02/2010 2:37 PM EST Janice Lockhart MD POINT OF CARE TEST O RDERACORRINE Performing Organization Address City/[facility] Co de Phone Number NICOLA TREJO * (ABNORMAL) REFLEX LAB-NCDIFF (08/02/2010 10:33 AM EST) Neutrophil % Manual 49 34 - 71 % CERNER MILLENNIUM Band % 35(H) 0 - 12 % [facility] MILLENNIUM Lymphocyte Manual 11(L) 19 - 53 % [facility]ERNER MILLENNIUM Monocyte Manual 2(L) 4 - 13 % CERN ER MILLENNIUM Eosinophil Manual 3 0 - 7 % [facility]ERNER MILLENNIUM Neutrophil Absolute (ANC) - Manual 2.6 1.5 - 6.3 x10(3)/mcL [facility] MILLENNIUM Band Abs 1.9(H) 0.2 - 0.6 x10(3)/mcL CERNER MILLENNIUM Neutrophil Absolute (ANC) - Automated 4.44 1.50 - 6.30 x10(3)/mcL CERNER MILLENNIUM Lymph Absolute Manual 0.6(L) 1.0 - 3.6 x10(3)/mcL CERNER MILLENNIUM Monocyte Absolute Manual 0.1(L) 0.2 - 1.0 x10(3)/mcL CERNER MILLENNIUM Eos Absolute Manual 0.2 0.0 - 0.5 x10(3)/mcL CERNER MILLENNIUM Total Cells Ct 100 CERNE R MILLENNIUM Plat estimate Normal CERNER MILLENNIUM RBC Morphology Abnormal CERNE R MILLENNIUM Ovalocytes 1-5 /HPF CERNER MILLENNIUM Blood specimen (specimen) 08/02/2010 10:33 AM EST 08/02/2010 10:50 AM EST Janice Lockhart MD HEMATOLOGY ORDERABLE S Performing Organization Address [facility] Co de Phone Number NICOLA AGUILARENNIUM * ELECTROLYTE PANEL (08/02/2010 10:33 AM EST) Sodium 135 135 - 145 mmol/L CERNER MILLENNIUM Potassium 3.9 3.5 - 5.0 mmol/L CERNER MILLENNIUM Comment: Please note: ??Patients with WBC >100,000 may have falsely elevated Potassium levels. ??For accurate Potassium quantification in these patients send serum separator tube (gold top) for subsequent determinations. ??Contact the Clinical Chemistry Laboratory if there are any questions. Chloride 105 98 - 107 mmol/L CERNER MILLENNIUM Carbon Dioxide 24 22 - 31 mmol/L CERNER MILLENNIUM Anion Gap 6 5 - 15 mmol/L CERNER MILLENNIUM Blood specimen (specimen) 08/02/2010 10:33 AM EST 08/02/2010 10:50 AM EST Janice Lockhart MD CHEMISTRY ORDERABLES Performing Organization Address City/[facility]/ZIP Co de Phone Number NICOLA AGUILARENNIUM * (ABNORMAL) CREATININE, SERUM (08/02/2010 10:33 AM EST) Creatinine 0.97 0.70 - 1.20 mg/dL CERNER MILLENNIUM Est Glomerular Filtration Rate 58(L) >=60 CERNER MILLENNIUM Comment: The National Kidney Disease Education Program [...] disease. References: http://nkdep.nih.gov/resources/NKDEP_Suggestn4Labs_0606_508.pdf http://www.kidney.org/professionals/kls/pdf/faq_gfr.pdf Blood specimen (specimen) 08/02/2010 10:33 AM EST 08/02/2010 10:50 AM EST Janice Lockhart MD CHEMISTRY ORDERABLES Performing Organization Address [facility] Co de Phone Number [facility] * (ABNORMAL) BUN (08/02/2010 10:33 AM EST) Blood Urea Nitrogen 22(H) 8 - 18 mg/dL [facility] Blood specimen (specimen) 08/02/2010 10:33 AM EST 08/02/2010 10:50 AM EST Janice Lockhart MD CHEMISTRY ORDERABLES Performing Organization Address [facility] Co de Phone Number [facility] * (ABNORMAL) PROTIME-INR (08/02/2010 10:33 AM EST) Prothrombin Time 17.8(H) 12.3 - 14.7 sec CERNER MILLENNIUM Comment: [facility] Transfusion Committee Guidelines: INR less than 2.0, PTT less than OR equal to 43.5 seconds, or Fibrinogen greater than or equal to 100 mg/dl indicate adequate procoagulant activity for hemostasis in patients without underlying bleeding disorders. International Normalization Ratio 1.4(H) 0.9 - 1.1 CERNER MILLENNIUM Blood specimen (specimen) 08/02/2010 10:33 AM EST 08/02/2010 10:50 AM EST Janice Lockhart MD HEMATOLOGY ORDERABLE S Performing Organization Address [facility] Co de Phone Number CERLORRAINE AGUILARENNIUM * (ABNORMAL) CBC (08/02/2010 10:33 AM EST) White Blood Cell 5.3 4.0 - 10.0 x10(3)/mc L CERNER MILLENNIUM Red Blood Cell 2.74(L) 3.93 - 5.22 x10(6)/mc L CERNER MILLENNIUM Hemoglobin 8.1(L) 11.2 - 15.7 gm/dL CERNER MILLENNIUM Hematocrit 24.8(L) 34.0 - 45.0 % CERNER MILLENNIUM Mean Cell Volume 90.5 79.0 - 94.0 fL CERNER MILLENNIUM Mean Cell Hemoglobin 29.6 26.6 - 32.2 pg CERNER MILLENNIUM Mean Cell Hemoglobin Concentration 32.7 32.0 - 36.5 gm/dL CERNER MILLENNIUM Platelet 185 145 - 370 x10(3)/mc L CERNER MILLENNIUM RDW Standard Deviation 43.9 35.0 - 46.0 fL CERNER MILLENNIUM RDW coefficient of variation 13.3 10.9 - 14.4 % CERNER MILLENNIUM Mean Platelet Volume 10.5 9.0 - 12.0 fL CERNER MILLENNIUM Blood specimen (specimen) 08/02/2010 10:33 AM EST 08/02/2010 10:50 AM EST Janice Lockhart MD HEMATOLOGY ORDERABLE S Performing Organization Address City/State/[facility] Co de Phone Number CERLORRAINE AGUILARENNIUM * POCT GLUCOMETER ORDER (LAB USE ONLY) (08/01/2010 10:44 PM EST) Glucose, POC 106 70 - 110 mg/dL [facility] Comment: Supplemental ranges: <110 mg/dL before meals <200 mg/dL all other times of the day Blood specimen (specimen) 08/01/2010 10:44 PM EST 08/01/2010 10:44 PM EST Janice Lockhart MD POINT OF CARE TEST O RDERACORRINE Performing Organization Address [facility] de Phone Number [facility] * POCT GLUCOMETER ORDER (LAB USE ONLY) (08/01/2010 5:41 PM EST) Glucose, POC 90 70 - 110 mg/dL [facility] Comment: Supplemental ranges: <110 mg/dL before meals <200 mg/dL all other times of the day Blood specimen (specimen) 08/01/2010 5:41 PM EST 08/01/2010 5:41 PM EST Janice Lockhart MD POINT OF CARE TEST O NIRAJ Performing Organization Address [facility] de Phone Number [facility] * PATHOLOGY SURGICAL PATHOLOGY FINAL REPORT (08/01/2010 4:33 PM EST) Surgical Pathology Report ? [facility] ? Provider: ?? JANICE LOCKHART ?? Pt. Name: ?? ROOT, SONA L ? Acc #: ?[id number] ?Pt. ? Col Date: ?? 08/01/2010 ?/Sex: ?1945,(64 years),Female ? Rec Date: ?? 08/01/2010 ?LOC: ?3WST ? SURGICAL PATHOLOGY ? ---Pathologic Diagnosis--- ? Articular bone and soft tissue showing osteoarthritis, ? right femoral head. ?Gross surgical pathology examination. ? CR-0 ? 08/03/10 ? AJE ? 08/09/10 Verified by: ? Jm KAY, Morales ? Pathologist ? (Electronic Signature) ? The attending pathologist whose signature appears on this report has ? reviewed all diagnostic slides and has edited the gross and/or ? microscopic portion of the report in rendering the final pathologic ? diagnosis. ? ---Gross Description--- ? Labeled/Fixativ e: ? Right femoral head, fresh. ? Quantity/Size: ?One femoral head, 5.3 x 5.3 x 4.0 cm. ? Tissue Description: ?? Intact femoral head with up to 2.0 cm of attached ? neck. ?Margin: ?Smooth, pink-yellow trabecular bone. ?Articular surface: Red, granular, and pitted. ?Eburnation: ?Present. ?Osteophytes: ? Present. ?Cut surface: ? Yellow, trabecular bone. ?Subchondral Sclerosis: ??Present. ?Subchondral Cysts: ?Present. ? Sections/Proces sing: ??No sections are submitted. ??aje/SNS ? ---Clinical Information--- ? Specimen Submitted: ? A - Femoral head, right hip ? Clinical History: ? Not provided ? Clinical Diagnosis: ? Right hip OA CERNER MILLENNIUM 08/01/2010 4:33 PM EST Janice Lockhart MD PATHOLOGY/CYTOLOGY O RDERABLES NICOLA TREJO documented in this encounter Visit Diagnoses Not on filedocumented in this encounter Care Teams Flexible Shaft Winder Relationship Specialty Start Date End Date Rebecca Kumar MD [address] [address] PCP - General 06/19/10 09/22/13 documented as of this encounter
--- OUTSIDE RECORDS SUMMARY | 2024-07-09 00:20 | XMS_ITS | Encounter Summary ---
Author Organization [facility] Address [facility] [place] [address] Care Team Providers Care Fire Control Mechanic Name Role Phone Rebecca Kumar MD Primary Care Provider [phone] Encounter Details Date Type Department Care Team (Late st Contact Info) Description 08/01/2011 9:50 AM EST - 08/01/2011 11:59 PM [facility] Hospital Encounter XRay at [address] [place] [address] Social History Tobacco Use Types Packs/Day Years [...] Take 20 mg by mouth daily. 10/17/2011 XALATAN 0.005 % ophthalmic solutionIndications:Glauc socorro, pigmentary [...] 9:45 AM EDT Office [place] [address] Augustine Regan MD [facility] [place] [address] documented as of this encounter Visit Diagnoses Not on filedocumented in this encounter Care Teams Fire Control Mechanic Relationship Specialty Start Date End Date Rebecca Kumar MD [address] [address] PCP - General 06/19/10 09/22/13 documented as of this encounter
--- OUTSIDE RECORDS SUMMARY | 2024-07-09 00:20 | XMS_ITS | Encounter Summary ---
Author Organization [facility] Address [facility] [place] [address] Care Team Providers Care Core Inspector Name Role Phone Rebecca Kumar MD Primary Care Provider [phone] Encounter Details Date Type Department Care Team (Late st Contact Info) Description 01/15/2011 [place] [address] Lakesha Howe, SHERITA Social History Tobacco Use Types Packs/Day Years [...] 9:45 AM EDT Office [place] [address] Augustine Regan MD [facility] [place] [address] documented as of this encounter Visit Diagnoses Not on filedocumented in this encounter Care Teams Core Inspector Relationship Specialty Start Date End Date Rebecca Kumar MD [address] [address] PCP - General 06/19/10 09/22/13 documented as of this encounter
--- OUTSIDE RECORDS SUMMARY | 2024-07-09 00:20 | XMS_ITS | Encounter Summary ---
Author Organization [facility] Address [facility] [place] [address] Care Team Providers Care Retail Agent Name Role Phone Rebecca Kumar MD Primary Care Provider [phone] Encounter Details Date Type Department Care Team (Late st Contact Info) Description 09/13/2010 2:10 PM EST Office [place] [address] Rickey Amador MD [facility] [address] Discharge Disposition: Home Social History Tobacco Use [...] 9:45 AM EDT Office [place] [address] Augustine Regan MD [facility] [place] [address] documented as of this encounter Visit Diagnoses Not on filedocumented in this encounter Care Teams Retail Agent Relationship Specialty Start Date End Date Rebecca Kumar MD [facility] [address] [place] [id number] PCP - General 06/19/10 09/22/13 documented as of this encounter
--- OUTSIDE RECORDS SUMMARY | 2024-07-09 00:20 | XMS_ITS | Encounter Summary ---
Author Organization [facility] [place] [address] Care Team Providers Care Director Of Grants Name Role Phone Rebecca Kumar MD Primary Care Provider [phone] Reason for Visit * Reason Comments Bilateral Knee Pain right > left Encounter Details Date Type Department Care Team (Latest Contact Info) Description 03/21/2011 10:10 AM EDT Office [place] [address] Halima Shepard APRN [facility] [place] [address] Osteoarthritis of knee (Primary Dx) Discharge Disposition: Home Social History [...] as of this encounter Progress Notes * Halima Shepard APRN - 03/21/2011 11:10 AM EDT DATE OF SERVICE: 03/21/2011 CHIEF COMPLAINT: Right knee pain. SUBJECTIVE: Sona is known to have moderate OA of the knee, significant spurring. She reports back today with fresh x-rays and we would like to have her right knee re-injected. I last injected her knee in 04/2010. This was followed by an injection on 11/13/2010 by AME King. She tells me her last injection lasted at least a few months. She would like to repeat today. Majority of her discomfort shows to be anteromedial. The knee clicks, does not lock or give way. She uses a cane for distance walking. She is unable to use anti-inflammatories as she had GI burning, then question of ulcer. Her PCP supplies her with Ultram, which she uses only one tablet b.i.d. OBSERVED: The patient reports back to clinic in no apparent distress other than a mild antalgia and stiffness favoring her left knee. Right knee range of motion is 0 to 120 degrees. The knee is stable to varus and valgus stress. Her posteromedial joint line is tender as is the medial parapatellar border. She has moderate patellar crepitus with motion, hint of an effusion. No heat or erythema. Negative Isidra's and the knee is stable to the AP plane. She has normal sensation throughout the lower extremities to light touch. No peripheral edema. Peripheral pulses are 2+. X-RAYS: Film revealed spurs scattered throughout the joint space and with mild joint space narrowing in all compartments, moderate actually under the patellofemoral joint. Goals, risks and concerns of a steroid injection to the knee were reviewed with the patient. They realize it may provide temporary pain relief to the knee and it is not a cure for their arthritis. They will continue to utilize conservative treatment measures as well. A time-out was performed to verify sidedness of joint and desired procedure. The patient was positioned on the gurney for comfort. The right knee was prepped with Chloro-prep solution. A lateral peripatellar approach was taken. I infiltrated 5cc of Lidocaine without epinephrine into the soft tissue. When adequate anesthesia was obtained I then followed with 40 mg of Kenelogsolution. A chaser of 5cc of Bupivicaine without epinephrine was then flushed through. A band-aid was placed. The patient was advised to keep the knee dry overnight, no shower until tomorrow, no swimming or water submersion for 48 hours. The patient is to contact us here in Orthopaedics if they were to experience any fever, chills or drainage from the needle stick site. The patient realizes it may take a full 7- 10 days for the cortisone to take effect. The patient may not repeat the injection for at least 3 months. The patient is in agreement with this plan. documented in this encounter Plan of Treatment Upcoming Encounters Date Type Department Care Team (Late st Contact Info) Description 11/19/2024 9:45 AM EDT Office [place] [address] Augustine Regan MD [facility] [place] [address] documented as of this encounter Visit Diagnoses Diagnosis Osteoarthritis of knee- Primary Osteoarthrosis, unspecified whether generalized or localized, lower leg documented in this encounter Care Teams Director Of Grants Relationship Specialty Start Date End Date Rebecca Kumar MD [address] [address] PCP - General 06/19/10 09/22/13 documented as of this encounter
--- OUTSIDE RECORDS SUMMARY | 2024-07-09 00:20 | XMS_ITS | Encounter Summary ---
Author Organization [facility] [place] [address] Care Team Providers Care Color Stripper Name Role Phone Rebecca Kumar MD Primary Care Provider [phone] Encounter Details Date Type Department Care Team (Late st Contact Info) Description 07/12/2010 2:40 PM EST Clinical [place] [address] Social History Tobacco Use Types Packs/Day Years [...] 9:45 AM EDT Office [place] [address] Augustine Regan MD [facility] [place] [address] documented as of this encounter Visit Diagnoses Not on filedocumented in this encounter Care Teams Color Stripper Relationship Specialty Start Date End Date Rebecca Kumar MD [address] [address] PCP - General 06/19/10 09/22/13 documented as of this encounter
--- OUTSIDE RECORDS SUMMARY | 2024-07-09 00:20 | XMS_ITS | Encounter Summary ---
Author Organization [facility] Address [facility] [place] [address] Care Team Providers Care Color Printer Operator Name Role Phone Rebecca Kumar MD Primary Care Provider [phone] Reason for Visit * Reason Onset Date Comments Medication Refill 12/17/2010 timoptic anc a zopt for refil Encounter Details Date Type Department Care Team (Late st Contact Info) Description 12/17/2010 [place] [address] Fuentes Dunbar MD [facility] [place] [address] Pigmentary open-angle glaucoma Social History Tobacco Use Types Packs/Day Years Used Date Smoking Tobacco: Never Assessed Sex and Gender Information Value Date Recorded Sex Assigned at Not on file Gender Identity Not on file Sexual Orientation Not on file documented as of this encounter Miscellaneous Notes * Telephone Encounter - Uday Dobbins - 12/17/2010 3:07 PM EDT Please call in rx refil for timoptic and for azopt, patient wishes them to be called in as prescribed, does not wish to have generic. 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
--- OUTSIDE RECORDS SUMMARY | 2024-07-09 00:20 | XMS_ITS | Encounter Summary ---
Author Organization [facility] Address [facility] [address] Care Team Providers Care Furniture Sales Consultant Name Role Phone Rebecca Kumar MD Primary Care Provider [phone] Reason for Visit * Reason Comments Bilateral Knee Pain injections Encounter Details Date Type Department Care Team (Late st Contact Info) Description 11/13/2010 3:10 PM EDT Office [place] [address] Kd Briceno PA [facility] [place] [address] BREONNA (total hip arthroplasty); Right knee DJD; Left knee DJD Discharge Disposition: Home Social History Tobacco Use Types Packs/Day Years Used Date Smoking Tobacco: Never Assessed Sex and Gender Information Value Date Recorded Sex Assigned at Not on file Gender Identity Not on file Sexual Orientation Not on file documented as of this encounter Progress Notes * Kd Briceno PA - 11/13/2010 5:03 PM EDT HPI: 65 yo patient presesnt seeking bilateral knee injections. Had cortisone injection in April; 6 months ago; with good relief and no reaction. Has been doing PT and the knees are limiting. She has had no injuries. She has no diabetes. Physcial Exam: 65 yo female ambulatory with cane assist. Skin is intact. No erythema or warmth. Medial jointline tenderness. Assessment: Bilateral knee OA seeking injection Plan: We reviewed the risks and limitations of injections. She understands that this is not a permanent treatment. We'll proceed with right and then left knee injections. After consent was obtained, using sterile technique the right knee was prepped and 5 ml's of 1% plain Lidocaine used to anesthetize the needle tract into the joint from the medial infrapatellar approach. 35 mg of kenalog and 2.5 ml plain Lidocaine was then injected and the needle withdrawn. The procedure was well tolerated. After consent was obtained, using sterile technique the left knee was prepped and 5 ml's of 1% plain Lidocaine used to anesthetize the needle tract into the joint from the medial infrapatellar approach. 35 mg of kenalog and 2.5 ml plain Lidocaine was then injected and the needle withdrawn. The procedure was well tolerated. The patient is asked to continue to rest the knees for a few more days before resuming regular activities. It may be more painful for the first 1-2 days. Watch for fever, or increased swelling or persistent pain in knee. Call or return to clinic prn if such symptoms occur or the knee fails to improve as anticipated. documented in this encounter Plan of Treatment Upcoming Encounters Date Type Department Care Team (Late st Contact Info) Description 11/19/2024 9:45 AM EDT Office [place] [address] Augustine Regan MD [facility] [place] [address] documented as of this encounter Visit Diagnoses Diagnosis BREONNA (total hip arthroplasty) Hip joint replacement by other means Right knee DJD Osteoarthrosis, unspecified whether generalized or localized, lower leg Left knee DJD Osteoarthrosis, unspecified whether generalized or localized, lower leg documented in this encounter Care Teams Furniture Sales Consultant Relationship Specialty Start Date End Date Rebecca Kumar MD [address] [address] PCP - General 06/19/10 09/22/13 documented as of this encounter
--- OUTSIDE RECORDS SUMMARY | 2024-07-09 00:20 | XMS_ITS | Encounter Summary ---
Author Organization [facility] Address [facility] [place] [address] Care Team Providers Care Manager Floor Name Role Phone Rebecca Kumar MD Primary Care Provider [phone] Reason for Visit * Reason Comments Pigmentary Glaucoma Pt thinks that VA OU is stable. Has not noticed any changes. Encounter Details Date Type Department Care Team (Late st Contact Info) Description 01/16/2011 2:45 PM EDT [place] [address] Migel Duval MD [facility] [place] [address] Pigmentary open-angle glaucoma (Primary Dx) Discharge Disposition: Home Social History [...] Progress Notes * Migel Duval MD - 01/16/2011 4:13 PM EDT 01/16/2011 Sona Rodrigez is a 65 y.o. female With pig glauc ou, suspect age 38 and began elevation of iop at 45. Sukhi. Discs=have gone from init 0.7 to now 0.8 ou out inf temp ou; VFs=in 89 w sup bjer os and nl od have slowly prog to now=od= inf step and os = bilat steps. Oct 11/04=53/45. Tmax . IOPstatus=9- 12 ou on MEDS= chanelle, xal, [...] in88. Dil disc photos ? Gonio, ck spindles.. 01/16/2011 The gonio shows considerable lightening of thetm ou, no doubt. The glaucoma is considered to be stable. The patient is instructed to use the samemedications and to return in 4 months. Watch the iops..If these abnormal clinical findings persist, appropriate workup will be completed. The patient understands that follow up is required to elucidate the situation. Elevates= alt. Dil hvfs. documented in this encounter Nursing Notes * 01/16/2011 2:45 PM EDT >> MIGEL DUVAL MD FriJan 16, 2011 4:14 PM Happy w vision >> JESSICA BALTAZAR FriJan 16, 2011 3:17 PM Description:Patient presents with: Pigmentary Glaucoma - Pt thinks that VA OU is stable. Has not noticed any changes. Location: both eye Duration: 6 months Rapidity of Onset:gradual Severity: Condition:No Change Pain:none Associated Symptoms: documented in this encounter Plan of Treatment Upcoming Encounters Date Type Department Care Team (Late st Contact Info) Description 11/19/2024 9:45 AM EDT Office [place] [address] Augustine Regan MD [facility] [place] [address] documented as of this encounter Procedures Procedure Name Priority Date/Time Associated Diagnosis Comments FUNDUS PHOTOS - OU- BOTH EYES Routine 01/16/2011 4:10 PM EDT Pigmentary open-angle glaucoma documented in this encounter Results * FUNDUS PHOTOS - OU- BOTH EYES (01/16/2011 4:10 PM EDT) Anatomical Region Laterality Modality Other Narrative 01/16/2011 4:10 PM EDT Each cup = 0.8 ou. Procedure Note Migel Duval MD - 01/16/2011 Each cup = 0.8 ou. 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
--- OUTSIDE RECORDS SUMMARY | 2024-07-09 00:20 | XMS_ITS | Encounter Summary ---
Author Organization [facility] [address] Care Team Providers Care Tiltrotor Crew Chief Name Role Phone Rebecca Kumar MD Primary Care Provider [phone] Reason for Visit * Reason Comments Obstructive Sleep Apnea Encounter Details Date Type Department Care Team (Late st Contact Info) Description 06/24/2011 11:15 AM EST [place] [address] Meredith Oconnor MD [facility] [place] [address] Obstructive sleep apnea (adult) (pediatric) (Primary Dx) [...] Sign Reading Time Taken Comments Blood Pressure 122/74 06/24/2011 11:11 AM EST Pulse 61 06/24/2011 11:11 AM EST Temperature - - Respiratory Rate - - Oxygen Saturation - - Inhaled Oxygen Concentration - - Weight 83.7 kg (184 lb 9.6 oz) 06/24/2011 11:11 AM EST Height 153.7 cm (5' 0.5) 06/24/2011 11:11 AM ES T Body Mass Index 35.46 06/24/2011 11:11 AM EST documented in this encounter Progress Notes * Meredith Oconnor MD - 06/24/2011 11:42 AM EST Sleep Medicine Follow-Up Note HPI: Sona Rodrigez is a 65 y.o. female seen for follow-up of obstructive sleep apnea. The patient was diagnosed with mild-mod YOLANDA. CPAP was initiated at 16cm. Ms. Rodrigez was last seen on 02/18/11. At that time, she was having difficulty with the mask interface. She was refit for a lower profile FFM as well as a chin strap to try with a nasal mask. Has tried different FFM as well as nose mask/chin strap. Chin strap doesn't seem to help - mouth still opens. Able to use PAP: yes Mask type: FFM Difficulty tolerating mask interface: generally fits well, but has to wear tight Problem: eyes seem puffier in am, but no dry eye Pressure intolerance: no Dry mouth: yes Difficulty breathing through nose: rare Symptom Improvement?: Nocturnal sleep quality improved: still sleeps better with CPAP Daytime symptoms improved: still tired in afternoon although not getting worse Involuntary Dozing: no Driving: denies ROS: CON: weight change: +6# since last visit ENT: nasal obstruction: rare CV: patient reports BP better on CPAP : nocturia: rare PSYCH: depression/anxiety symptoms: denies Past Medical History: Past Medical History Diagnosis Date ??? Allergy [...] interface MODIFIED RADICAL MASTECTOMY / LT/WITH TISSUE LOBBY PORTER Procedure Date: 11/23/1991 ??? Created by interface [...] Argon laser trabeculoplasty 08/04/2008 OS per [facility] Medications: Outpatient prescriptions marked as taking for the 06/24/11 encounter (Office Visit) with MEREDITH OCONNOR Medication Sig Dispense Refill ??? NEXIUM 40 mg capsule Take 40 mg by mouth daily. ??? ZESTRIL 10 mg tablet Take 40 mg by mouth daily. ??? traMADol (ULTRAM) 50 mg tablet Take 50 mg by mouth daily. ??? TIMOPTIC-XE 0.5 % ophthalmic gel-forming Place 1 drop into both eyes every morning. 10 mL 11 ??? brinzolamide (AZOPT) 1 % ophthalmic suspension Place 1 drop into both eyes 2 times daily. 10 mL11 ??? atorvastatin (LIPITOR) 20 mg tablet Take 20 mg by mouth daily. ??? aspirin 81 mg EC tablet Take 81 mg by mouth daily. ??? torsemide (DEMADEX) 20 mg tablet Take 20 mg by mouth daily. ??? acetaminophen (TYLENOL EXTRA STRENGTH) 500 mg tablet Take 1,000 mg by mouth every 8 hours as needed. ??? citalopram (CELEXA) 20 mg tablet Take 20 mg by mouth daily. ??? ezetimibe (ZETIA) 10 mg tablet Take 10 mg by mouth daily. ??? fenofibrate (TRICOR) 145 mg tablet Take 145 mg by mouth daily. ??? traZODone (DESYREL) 50 mg tablet Take 50 mg by mouth nightly. ??? DISCONTD: lisinopril (PRINIVIL;ZESTRIL) 40 mg tablet Take 50 mg by mouth daily. ??? XALATAN 0.005 % ophthalmic solution Place 1 drop into both eyes nightly. day supply 2.5 mL 4 ??? metoprolol tartrate (LOPRESSOR) 50 mg tablet Take 50 mg by mouth 2 times daily. PE: VS recorded in chart General: pleasant 65 y.o. female, no distress PAP compliance card reviewed: Dates:01/28/11-04/15/11 Pressure: 16cm % days used: 100% Average usage on days used: 7.75hrs Average residual AHI: 2.3 Leak: intermittently elevated Assessment: Sona Rodrigez is a 65 y.o. female seen in follow-up for obstructive sleep apnea. Although she has had improvements in nocturnal and daytime symptoms, there are ongoing tolerance problems mainly related to mask leak (despite trying multiple nasal and full face interfaces, as well as a chin strap). She has relatively high pressure requirements and thus may benefit from BiPAP, as lower expiratory pressures may reduce mask leak issues. Diagnostic Codes: 327.23; Obstructive sleep apnea Time spent face to face: 15min Time spent devoted to counseling and discussion: 10min Recommendations: 1. BiPAP titration Patient voices understanding and acceptance of this advice and will call back if any further questions or concerns. documented in this encounter Plan of Treatment Upcoming Encounters Date Type Department Care Team (Late st Contact Info) Description 11/19/2024 9:45 AM EDT Office [place] [address] Augustine Regan MD [facility] [place] [address] documented as of this encounter Visit Diagnoses Diagnosis Obstructive sleep apnea (adult) (pediatric)- Primary documented in this encounter Care Teams Tiltrotor Crew Chief Relationship Specialty Start Date End Date Rebecca Kumar MD [address] [address] PCP - General 06/19/10 09/22/13 documented as of this encounter
--- OUTSIDE RECORDS SUMMARY | 2024-07-09 00:20 | XMS_ITS | Encounter Summary ---
Author Organization [facility] [place] [address] Care Team Providers Care Wood Flour Miller Name Role Phone Rebecca Kumar MD Primary Care Provider [phone] Encounter Details Date Type Department Care Team (Late st Contact Info) Description 10/15/2010 2:40 PM EDT [place] [address] Emily Oconnor MD [facility] [place] [place] [address] Social History Tobacco Use Types Packs/Day Years [...] 9:45 AM EDT Office [place] [address] Augustine Regan MD [facility] [place] [address] documented as of this encounter Visit Diagnoses Not on filedocumented in this encounter Care Teams Wood Flour Miller Relationship Specialty Start Date End Date Rebecca Kumar MD [address] [id number] PCP - General 06/19/10 09/22/13 documented as of this encounter
--- OUTSIDE RECORDS SUMMARY | 2024-07-09 00:20 | XMS_ITS | Encounter Summary ---
Author Organization [facility] [place] [address] Care Team Providers Care Digester Capper Name Role Phone Rebecca Kumar MD Primary Care Provider [phone] Reason for Visit * Reason Onset Date Comments Right Knee Pain 05/09/2011 Encounter Details Date Type Department Care Team (Late st Contact Info) Description 05/09/2011 Telephone [place] [address] Halima Shepard APRN [facility] [place] [address] Right Knee Pain Social History Tobacco Use Types Packs/Day Years [...] encounter Miscellaneous Notes * Telephone Encounter - Halima Shepard APRN - 05/09/2011 5:52 PM EDT Sona phoned at home about her right knee. I did not want her to drive down from [facility]. Expectinganother steroid injection as it is to soon to repeat that. She tells me that she has had no new injury or accident but she had experience a new lateral knee pain that has diminished since she made the appointment. She asked if the appointment and x-ray was still necessary. As she is improving with ice, rest and Tylenol I will have her continue those interventions for now. I see no reason to repeat knee films as they are likely to show any changes in such a short periodof time. This may even be from her back due to her description but she is known to have lateral arthritic changes on her x-rays as well. She will continue to monitor her symptoms as she is improving but she has decided not to drive all this way down to clinic as we would not be doing anything different for her. I encouraged her to return however if this a new pain (laterally) resurges. documented in this encounter Plan of Treatment Upcoming Encounters Date Type Department Care Team (Late st Contact Info) Description 11/19/2024 9:45 AM EDT Office [place] [address] Augustine Regan MD [facility] [place] [address] documented as of this encounter Visit Diagnoses Not on filedocumented in this encounter Care Teams Digester Capper Relationship Specialty Start Date End Date Rebecca Kumar MD [address] [address] PCP - General 06/19/10 09/22/13 documented as of this encounter
--- OUTSIDE RECORDS SUMMARY | 2024-07-09 00:20 | XMS_ITS | Encounter Summary ---
Author Organization [facility] [place] [address] Care Team Providers Care Skiving Machine Operator Name Role Phone Rebecca Kumar MD Primary Care Provider [phone] Encounter Details Date Type Department Care Team (Late st Contact Info) Description 07/16/2010 12:45 PM EST Follow-Up [place] [phone] Fuentes Dunbar MD [facility] [place] [address] Discharge Disposition: Home Social History Tobacco Use [...] 9:45 AM EDT Office Visit [place] [address] Augutsine Regan MD [facility] [place] [address] documented as of this encounter Visit Diagnoses Not on filedocumented in this encounter Care Teams Skiving Machine Operator Relationship Specialty Start Date End Date Rebecca Kumar MD [facility] [address] [place] [id number] PCP - General 06/19/10 09/22/13 documented as of this encounter
--- OUTSIDE RECORDS SUMMARY | 2024-07-09 00:20 | XMS_ITS | Encounter Summary ---
Author Organization [facility] Address [facility] [place] [address] Care Team Providers Care Ic Engineer Name Role Phone Jannette Perales PAPER BOX CUTTER Primary Care Provider [phone] Encounter Details Date Type Department Care Team (Late st Contact Info) Description 08/01/2010 Orders [place] [address] Rickey Amador MD [facility] [place] [address] Social History Tobacco Use Types Packs/Day Years [...] 9:45 AM EDT Office [place] [address] Augustine Regan MD [facility] [place] [address] documented as of this encounter Procedures Procedure Name Priority Date/Time Associated Diagnosis Comments SURGICAL PATHOLOGY REPORT Routine 08/01/2010 4:33 PM EST documented in this encounter Results * Surgical Pathology Report (08/01/2010 4:33 PM EST) Surgical Pathology Report [id number] ? Location: [facility]; [facility]; A The signing pathologist has (i) examined the relevant preparation(s) for the specimen(s) and (ii) rendered or confirmed the diagnosis(es). . ?Pathology Surgical Pathology Final Report Clinical Information Specimen Submitted: A - Femoral head, right hip Clinical History: Not provided Clinical Diagnosis: Right hip OA Gross Description Labeled/Fixativ e: ? Right femoral head, fresh. Quantity/Size: ?One femoral head, 5.3 x 5.3 x 4.0 cm. Tissue Description: ?? Intact femoral head with up to 2.0 cm of attached ?neck. ?? Margin: ?Smooth, pink-yellow trabecular bone. ?? Articular surface: Red, granular, and pitted. ? Eburnation: ?Present. ? Osteophytes: ? Present. ?? Cut surface: ? Yellow, trabecular bone. ? Subchondral Sclerosis: ??Present. ? Subchondral Cysts: ?Present. Sections/Proces sing: ??No sections are submitted. ??aje/SNS Diagnosis Articular bone and soft tissue showing osteoarthritis, right femoral head. ?? Gross surgical pathology examination. CR-0 08/03/10 AJE 08/09/10 Verified by: ? Jm KAY, Morales ?Pathologist ?(Electronic Signature) The attending pathologist whose signature appears on this report has reviewed all diagnostic slides and has edited the gross and/or microscopic portion of the report in rendering the final pathologic diagnosis. [facility] 08/01/2010 4:33 PM EST Rickey Amador MD PATHOLOGY/CYTOLOGY O RDERABLES [facility] [place] documented in this encounter Visit Diagnoses Not on filedocumented in this encounter Care Teams Ic Engineer Relationship Specialty Start Date End Date Jannette Perales APRN PCP - General General Internal Medicine 08/18/17 documented as of this encounter
--- OUTSIDE RECORDS SUMMARY | 2024-07-09 00:20 | XMS_ITS | Encounter Summary ---
Author Organization [facility] Address [facility] [place] [address] Care Team Providers Care Gum Machine Filler Name Role Phone Jannette Perales RN NURSERY Primary Care Provider [phone] Encounter Details Date Type Department Care Team (Late st Contact Info) Description 09/02/2006 Orders [place] [address] Rickey Amador MD [facility] DR [place] [address] Social History Tobacco Use Types Packs/Day Years [...] 9:45 AM EDT Office [place] [address] Augustine Regan MD [facility] [place] [address] documented as of this encounter Procedures Procedure Name Priority Date/Time Associated Diagnosis Comments SURGICAL PATHOLOGY REPORT Routine 09/02/2006 9:51 AM EST documented in this encounter Results * Surgical Pathology Report (09/02/2006 9:51 AM EST) Surgical Pathology Report [id number] ? Location: [facility]; [facility]; A The signing pathologist has (i) examined the relevant preparation(s) for the specimen(s) and (ii) rendered or confirmed the diagnosis(es). . ?Pathology Surgical Pathology Final Report Clinical Information Specimen Submitted: A - Femoral head, lt hip Clinical History: Drug allergy Clinical Diagnosis: L hip djd. Gross Description Labeled/Fixativ e: ? LT femoral head, fresh. Quantity/Size: ?One femoral head, 5.0 x 5.0 x 4.3 cm. Tissue Description: ?? Intact femoral head with up to 0.8 cm of attached ?neck. ?? Margin: ?The neck resection margin is pink-yellow trabecular ?bone. ?? Articular surface: Brown-yellow and smooth. ? Eburnation: ?Present. ? Osteophytes: ? Present. ?? Cut surface: ? Brown-yellow trabecular bone. ? Subchondral Sclerosis: ??Present. ? Subchondral Cysts: ?Present. Sections/Proces sing: ??No sections are submitted. ??aje/SNS Diagnosis Articular bone and soft tissue consistent with osteoarthritis, left femoral head. ?? Gross surgical pathology examination. CR-0 09/03/06 AJE 09/06/06 Verified by: ? Morales Oneal MD ?Pathologist ?(Electronic Signature) The attending pathologist whose signature appears on this report has reviewed all diagnostic slides and has edited the gross and/or microscopic portion of the report in rendering the final pathologic diagnosis. [facility] 09/02/2006 9:51 AM EST Rickey Amador MD PATHOLOGY/CYTOLOGY O RDERABLES [facility] documented in this encounter Visit Diagnoses Not on filedocumented in this encounter Care Teams Gum Machine Filler Relationship Specialty Start Date End Date Janentte Perales APRN PCP - General General Internal Medicine 08/18/17 documented as of this encounter
--- OUTSIDE RECORDS SUMMARY | 2024-07-09 00:20 | XMS_ITS | Encounter Summary ---
Author Organization [facility] Address [place] [id number] Care Team Providers Care Signal And Communications Maintainer Name Role Phone Rebecca Kumar MD Primary Care Provider [phone] Reason for Visit * Reason Comments Pigmentary Glaucoma ou 5 m f/u IOP, Dila te and OCT Encounter Details Date Type Department Care Team (Late st Contact Info) Description 10/17/2011 10:05 AM EDT Follow-[place] [address] Migel Duval MD [facility] DR [place]TH[place] [address] Pigmentary glaucoma of both eyes; Glaucoma, pigmentary; Pigmentary open-angle glaucoma Discharge Disposition: Home Social History Tobacco Use [...] Progress Notes * Migel Duval MD - 10/17/2011 11:16 AM EDT 01/16/2011 Sona Rodrigez is a [...] inf bjer and os = bilat bjerrums. Oct 11/04=53/45. And 56/49 on 10/06. Tmax . IOPstatus=9-12 ou on MEDS= chanelle, xal, az. ADR= propine. TARGET<~14 ou. Gonio initial= +5 band 360 ou and full tm thickness ou. Surg= piou on . Ce ou on 1999, dgc. [...] . Dil disc photos ? Gonio, ck spindles.01/16/2011 the tms have lightened considerably ou. No doubt. 05/24/2011 =iops approx 14 ou. Stable ck 5 m 10/17/2011= stable ck 6m dil hvfs documented in this encounter Nursing Notes * 10/17/2011 10:05 AM EDT >> MIGEL DUVAL MD [facility] Oct 17, 2011 11:18 AM Pig glc ou yrs no probs michelle lowe >> JESSICA LAWSON [facility] Oct 17, 2011 10:06 AM Description:Patient presents with: Pigmentary Glaucoma - ou 5 m f/u IOP, Dilate and OCT Location: both eye Duration: 5 months f/u Rapidity of Onset: Severity: Condition:no change Pain:none Modifying Factors: pigmentary glaucoma ou Associated Symptoms: pt has no c/o va since last exam. Pt is using azopt bid ou, timolol qam ou andxalatan qhs ou w/o problems. documented in this encounter Plan of Treatment Upcoming Encounters Date Type Department Care Team (Late st Contact Info) Description 11/19/2024 9:45 AM EDT Office [place] [address] Augustine Regan MD [facility] [place] [address] documented as of this encounter Procedures Procedure Name Priority Date/Time Associated Diagnosis Comments OCT OPTIC NERVE - OU - BOTH EYES Routine 10/17/2011 11:18 AM EDT Pigmentary glaucoma of both eyes documented in this encounter Results * OCT OPTIC [id number] EYES (10/17/2011 11:18 AM EDT) Anatomical Region Laterality Modality Other Narrative 10/17/2011 11:18 AM EDT 56/49 thin ou but no deterioration Procedure Note Migel Duval MD - 10/17/2011 56/49 thin ou but no deterioration Migel Duval MD OPHTHALMOLOGY SERVIC ES ORDERABLES documented in this encounter Visit Diagnoses Diagnosis 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
--- OUTSIDE RECORDS SUMMARY | 2024-07-09 00:20 | XMS_ITS | Encounter Summary ---
Author Organization [facility] [place] [address] Care Team Providers Care Pediatric Oncology Nurse Name Role Phone Rebecca Kumar MD Primary Care Provider [phone] Encounter Details Date Type Department Care Team (Late st Contact Info) Description 10/24/2010 8:00 PM EDT Procedure [place] [address] Bogdan Galloway MD [facility] [place] [address] Social History Tobacco Use Types Packs/Day Years [...] 9:45 AM EDT Office [place] [address] Augustine Regan MD [facility] [place] [address] documented as of this encounter Visit Diagnoses Not on filedocumented in this encounter Care Teams Pediatric Oncology Nurse Relationship Specialty Start Date End Date Rebecca Kumar MD [address] [id number] PCP - General 06/19/10 09/22/13 documented as of this encounter
--- OUTSIDE RECORDS SUMMARY | 2024-07-09 00:20 | XMS_ITS | Encounter Summary ---
Author Organization [facility] Address [facility] [place] [address] Care Team Providers Care Space Physicist Name Role Phone Rebecca Kumar MD Primary Care Provider [phone] Encounter Details Date Type Department Care Team (Late st Contact Info) Description 05/07/2011 Orders Only Orthopaedics at [place] [id number] Halima Shepard APRN [facility] [place] [address] Knee pain (Primary Dx) Social History Tobacco Use Types [...] 9:45 AM EDT Office [place] [address] Augustine Regan MD [facility] [address] documented as of this encounter Visit Diagnoses Diagnosis Knee pain- Primary Pain in joint, lower leg documented in this encounter Care Teams Space Physicist Relationship Specialty Start Date End Date Rebecca Kumar MD [address] [place] [address] PCP - General 06/19/10 09/22/13 documented as of this encounter
--- OUTSIDE RECORDS SUMMARY | 2024-07-09 00:20 | XMS_ITS | Encounter Summary ---
Author Organization Formerly [facility] [place] [address] Care Team Providers Care Fine Arts Packer Name Role Phone Rebecca Kumar MD Primary Care Provider [phone] Reason for Visit * Reason Comments Obstructive Sleep Apnea Encounter Details Date Type Department Care Team (Late st Contact Info) Description 02/18/2011 12:40 PM EDT Office [place] [address] Emily Oconnor MD [facility] [place] [address] Obstructive sleep apnea (adult) (pediatric) (Primary Dx) [...] Sign Reading Time Taken Comments Blood Pressure 126/78 02/18/2011 11:17 AM EDT Pulse 52 02/18/2011 11:17 AM EDT Temperature - - Respiratory Rate - - Oxygen Saturation - - Inhaled Oxygen Concentration - - Weight 80.7 kg (178 lb) 02/18/2011 11:17 AM EDT Height 153 cm (5' 0.25) 02/18/2011 11:17 AM EDT Body Mass Index 34.48 02/18/2011 11:17 AM EDT documented in this encounter Progress Notes * Emily Oconnor MD - 02/18/2011 12:09 PM EDT Sleep Medicine Follow-Up Note HPI: Sona Rodrigez is a 65 y.o. female seen for follow-up of obstructive sleep apnea. The patient was diagnosed with mild-moderate YOLANDA. CPAP was initiated at 16cm. Able to use PAP: yes Mask type: nasal mask Difficulty tolerating mask interface: some Problem: had FFM but could not move in bed; changed to nasal mask after couple weeks. Fits a lot better. Some leaking. Does open mouth. Pressure intolerance: no Dry mouth: yes Difficulty breathing through nose: no Uses chin strap (red) Symptom Improvement?: Nocturnal sleep quality improved: better; doesn't wake up as often Daytime symptoms improved: thinks energy levels better Involuntary Dozing: no Driving: no ROS: CON: weight change: had lost some weight when had hip replacement - has gained back ENT: nasal obstruction: no : nocturia: none PSYCH: depression/anxiety symptoms: no Past Medical History: Patient Active Problem List Diagnoses Code ??? 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 CIS - LOC OSTEOARTH NOS-PELVIS 715.35 ??? BREONNA (total hip arthroplasty) V43.64AA ??? ASCVD (arteriosclerotic cardiovascular disease) 429.2D ??? [...] Obstructive sleep apnea (adult) (pediatric) 327.23 Medications: Current outpatient prescriptions ordered prior to encounter Medication Sig Dispense Refill ??? TIMOPTIC-XE 0.5 % ophthalmic gel-forming Place [...] Take 50 mg by mouth nightly. ??? lisinopril (PRINIVIL;ZESTRIL) 40 mg tablet Take 50 mg by mouth daily. ??? XALATAN 0.005 % ophthalmic solution Place 1 drop into both eyes nightly. 90 day supply 2.5 mL 4 ??? metoprolol tartrate (LOPRESSOR) 50 mg tablet Take 50 mg by mouth 2 times daily. ??? nitroGLYcerin (NITROSTAT) 0.4 mg SL tablet 0.4MG = 1 Tablet(s), Sublingual, PRN PE: VS in chart General: pleasant 65 y.o. female, no distress PAP compliance card reviewed: Dates:12/04/10-01/27/11 Pressure: 16cm % days used: 100% Average usage on days used: 7.5hrs Average residual AHI: 3 Leak: elevated Assessment: Sona Rodrigez is a 65 y.o. female seen in follow-up for obstructive sleep apnea. She has excellentadherence to CPAP, with improved control of nocturnal and daytime symptoms. She has had difficulty with the mask interface. Currently she is in a nasal mask that fits well, but she does havie mouth breathing. We discussed trying a different chin strap as well as trying a lower profile FFM, as the previous FFM was very bulky. She is in agreement with this plan. Diagnostic Codes: 327.23; Obstructive sleep apnea Time spent face to face: 20min Time spent devoted to counseling and discussion: 15min Recommendations: 1. Deluxe chin strap 2. Refit for lower profile FFM today 3. Continue current pressure 4. F/U 3-4 months Parent voices understanding and acceptance of this advice and will call back if any further questions or concerns. documented in this encounter Plan of Treatment Upcoming Encounters Date Type Department Care Team (Late st Contact Info) Description 11/19/2024 9:45 AM EDT Office [place] [address] Augustine Regan MD [facility] [place] [address] documented as of this encounter Visit Diagnoses Diagnosis Obstructive sleep apnea (adult) (pediatric)- Primary documented in this encounter Care Teams Fine Arts Packer Relationship Specialty Start Date End Date Rebecca Kumar MD [address] [address] PCP - General 06/19/10 09/22/13 documented as of this encounter
--- OUTSIDE RECORDS SUMMARY | 2024-07-09 00:20 | XMS_ITS | Encounter Summary ---
Author Organization [facility] [place] [address] Care Team Providers Care Metal Numerical Control Programmer Name Role Phone Rebecca Kumar MD Primary Care Provider [phone] Reason for Visit * Reason Comments Obstructive Sleep Apnea Encounter Details Date Type Department Care Team (Late st Contact Info) Description 07/10/2011 8:05 PM EST Procedure [place] [address] Emily Oconnor MD [facility] [place] [address] Obstructive sleep apnea (adult) (pediatric) (Primary Dx) [...] Sign Reading Time Taken Comments Blood Pressure 140/82 07/11/2011 3:59 PM EST Pulse 43 07/11/2011 3:59 PM EST Temperature - - Respiratory Rate - - Oxygen Saturation - - Inhaled Oxygen Concentration - - Weight 81.6 kg (180 lb) 07/11/2011 3:59 PM EST Height 153.7 cm (5' 0.5) 07/11/2011 3:59 PM EST Body Mass Index 34.58 07/11/2011 3:59 PM EST documented in this encounter Progress Notes * Emily Oconnor MD - 07/11/2011 4:27 PM EST REPORT OF POSITIVE PRESSURE TITRATION History Of [...] pulse oximeter). Type of Positive Pressure Utilized: BiPAP Comment: - Sleep/EEG: Sleep efficiency: yes Sleep architecture: yes REM Observed: yes Supine position observed: yes - Respiratory: BiPAP was titrated from a pressure of 8/4cm to 15/8cm. A pressure of 11-13/4 cm pressure was demonstrated efficacious in REM sleep supine. Mild scattered hypopneas were observed, although there were more frequent obstructive and central events at higher pressures. Best result was achieved with an XS quattro full face mask. Baseline SaO2: 93% Minimum SaO2: 85% - EKG: Normal sinus rhythm with rare premature ventricular contractions. - EMG: Unremarkable Assessment: Sona Rodrigez is a 65 y.o. female whose polysomnogram reveals an effective BiPAP pressure of 11-13/4 cm of water. Higher pressures did not provide better control and more frequent central events emerged. Sleep architecture was generally normal and no motor disorder identified. The needfor positive pressure therapy compliance was discussed. Ms. Rodrigez found the BiPAP to be more comfortable than CPAP. She did not have any pressure intolerance, nor any difficulty with the mask fit. Questions about positive pressure were answered. Expectations reviewed. ICSD diagnosis (code) 327.23 Provisional: Final: Obstructive sleep apnea. Recommendations: 1. BiPAP set at a pressure of 13/5 cm with an XS quattro full face mask. 2. Follow up appointment will be scheduled in 6-8 weeks, although patient in instructed to call sooner with problems or questions. Patient Name:Sona Rodrigez Study Date: 07/10/2011 Sex: Female Subject Code: [id number] Date of : 1945 Referring Physician:Rebecca Kumar M.D. Age: 65 Sleep Specialist: Emily Oconnor M.D. Height: 60.5 Recording Tech: NCote Weight: 180.2 Scoring Tech: SUSU [place] B.M.I: 34.6 Ectopy: EKG: Bradycardia and PVC's Sleep Architecture Start Time: Lights Off: 11:33:58 PM End Time: Lights On: 6:57:27 AM Total Recording Time (TRT): 443.5 Total Sleep Period (TSP): 413.7 Total Sleep Time (TST): 353.5 Sleep Efficiency: 79.7% Sleep Onset: 29.8 Total Stage Shifts: 191 WASO: 60.2 Total Awakenings: 33 REM Periods: 2 REM Latency: 167.5 REM Latency (minus Wake time): 155.0 Stage Results Time (min.) % TST Latency (min.) Wake (after sleep onset): 60.2 - - Stage N1: 30.5 8.6% 0.0 Stage N2: 183.0 51.8% 1.0 Stage N3: 74.0 20.9% 7.0 REM: 66.0 18.7% 167.5 Respiratory Events Central Obstructive Mixed Total Apnea Apnea Apnea Apneas RERA Count: 25 17 0 42 2 Index (events/hr.): 4.2 2.9 0.0 7.1 0.3 Mean Duration (sec.): 15.3 12.9 N/A 14.4 15.8 Longest Event (sec.): 22.2 17.9 N/A 22.2 17.7 REM Count: 7 2 0 9 0 NREM Count: 18 15 0 33 2 REM Index: 6.4 1.8 0.0 8.2 0.0 NREM Index: 3.8 3.1 0.0 6.9 0.4 Respiratory Events (cont) Hypopneas Hypopneas Apneas + OD 4% OD 3%/AR Hypopneas Count: 12 28 82 Index (events/hr.): 2.0 4.8 13.9 Mean Duration (sec.): 20.8 21.0 17.6 Longest Event (sec.): 32.0 65.7 65.7 REM Count: 1 6 16 NREM Count: 11 22 66 REM Index: 0.9 5.5 14.5 NREM Index: 2.3 4.6 13.8 Respiratory Body Position Supine Supine Prone Prone Left Body Position Count Index Count Index Count Duration: 2:33:00 0:00:00 0:35:30 Obstructive Apneas: 1 0.4 N/A N/A 0 Central Apneas: 3 1.2 N/A N/A 1 Mixed Apneas: 0 0.0 N/A N/A 0 Hypopnea OD 4%: 7 2.7 N/A N/A 1 Hypopnea OD 3%: 16 6.3 N/A N/A 2 RERA???s: 0 0.0 N/A N/A 0 Total: 27 10.6 N/A N/A 4 Respiratory Events Events Left Right Right Upright Upright Body Position (cont) Index Count Index Count Index Duration: 2:45:00 0:00:00 Obstructive Apneas: 0.0 16 5.8 N/A N/A Central Apneas: 1.7 21 7.6 N/A N/A Mixed Apneas: 0.0 0 0.0 N/A N/A Hypopnea OD 4%: 1.7 4 1.5 N/A N/A Hypopnea OD 3%: 3.4 10 3.6 N/A N/A RERA???s: 0.0 2 0.7 N/A N/A Total: 6.8 53 19.3 N/A N/A Body Position Supine Prone Left Right Upright Duration (Min): 153.0 0.0 35.5 165.0 0.0 % TST: 43.3% 0.0% 10.0% 46.7% 0.0% Respiratory Arousals Total NREM REM Respiratory Count: 42 35 7 Respiratory Index (events/hr): 7.1 7.3 6.4 Spontaneous Count: 52 47 5 Spontaneous Index (events/hr): 8.8 9.8 4.5 Total Count: 94 82 12 Total Index (events/hr): 16.0 17.1 10.9 Limb Movements LMs w Arousals LMs w/o Arousals Total LMs (by Sleep Stages) Count Index Count Index Count Index Total Sleep: 0 0.0 4 0.7 4 0.7 N1: 0 0.0 0 0.0 0 0.0 N2: 0 0.0 4 1.3 4 1.3 N3: 0 0.0 0 0.0 0 0.0 REM: 0 0.0 0 0.0 0 0.0 Oxygen Desaturation Count Index Total Sleep Time: 78 13.2 Wake (after sleep onset): 0 0.0 Non-REM: 65 13.6 REM: 13 13.6 Total Recording Time: 78 10.6 Oxygen Saturation Wake NREM REM TST TIB Mean SaO2%: 95.5 93.5 94.2 93.7 94.0 Min. SaO2%: 87.0 85.0 88.0 85.0 85.0 Max. SaO2%: 100.0 100.0 100.0 100.0 100.0 SaO2 < 89% (min): 0.5 0.6 0.1 0.8 1.3 SaO2 < 88% (min): 0.3 0.3 0.0 0.3 0.6 % Time of SaO2 in range 90 - 100%: 98.0% 99.3% 98.7% 99.2% 99.0% 80 - 90%: 1.6% 0.5% 1.3% 0.7% 0.9% 70 - 80%: 0.0% 0.0% 0.0% 0.0% 0.0% 60 - 70%: 0.0% 0.0% 0.0% 0.0% 0.0% 50 - 60%: 0.0% 0.0% 0.0% 0.0% 0.0% <= 50%: 0.0% 0.0% 0.0% 0.0% 0.0% % Artifact / Bad Data: 0.4% 0.1% 0.0% 0.1% 0.2% ETCO2 Wake NREM REM TST TIB Mean [...] NREM REM TST TIB Mean HR (bpm): 46.4 44.9 47.6 45.4 45.6 Min. HR (bpm): 40.0 36.0 43.0 36.0 36.0 Max. HR (bpm): 63.0 59.0 57.0 59.0 63.0 % Time in range > 100 (bpm): 0.0% 0.0% 0.0% 0.0% 0.0% 90 - 100 (bpm): 0.0% 0.0% 0.0% 0.0% 0.0% 80 - 90 (bpm): 0.0% 0.0% 0.0% 0.0% 0.0% 70 - 80 (bpm): 0.0% 0.0% 0.0% 0.0% 0.0% 60 - 70 (bpm): 0.3% 0.0% 0.0% 0.0% 0.1% 50 - 60 (bpm): 9.6% 0.7% 16.9% 3.7% 4.9% <= 50 (bpm): 89.7% 99.2% 83.1% 96.2% 94.9% % Artifact / Bad Data: 0.4% 0.1% 0.0% 0.1% 0.2% documented in this encounter Plan of Treatment Upcoming Encounters Date Type Department Care Team (Late st Contact Info) Description 11/19/2024 9:45 AM EDT Office [place] [address] Augustine Regan MD [facility] [place] [address] documented as of this encounter Visit Diagnoses Diagnosis Obstructive sleep apnea (adult) (pediatric)- Primary documented in this encounter Care Teams Metal Numerical Control Programmer Relationship Specialty Start Date End Date Rebecca Kumar MD [address] [address] PCP - General 06/19/10 09/22/13 documented as of this encounter
--- OUTSIDE RECORDS SUMMARY | 2024-07-09 00:20 | XMS_ITS | Encounter Summary ---
Author Organization [facility] Address [facility] [place] [address] Care Team Providers Care Tack Picker Name Role Phone Rebecca Kumar MD Primary Care Provider [phone] Encounter Details Date Type Department Care Team (Late st Contact Info) Description 03/04/2011 Orders Only Orthopaedics at [place] [phone] Halima Shepard APRN [facility] [place] [address] Knee pain, bilateral (Primary Dx) Social History Tobacco Use Types [...] 9:45 AM EDT Office Visit Ophthalmology at [place] [phone] Augustine Regan MD [facility] [place] [address] documented as of this encounter Visit Diagnoses Diagnosis Knee pain, bilateral- Primary Pain in joint, lower leg documented in this encounter Care Teams Tack Picker Relationship Specialty Start Date End Date Rebecca Kumar MD [address] [address] PCP - General 06/19/10 09/22/13 documented as of this encounter
--- OUTSIDE RECORDS SUMMARY | 2024-07-09 00:20 | XMS_ITS | Encounter Summary ---
Author Organization [facility] [place] [address] Care Team Providers Care Paraprofessional Education Assistant Name Role Phone Rebecca Kumar MD Primary Care Provider [phone] Reason for Visit * Reason Comments Aftercare Of Tjr SP R BREONNA DOS 08/01/10 Encounter Details Date Type Department Care Team (Late st Contact Info) Description 01/07/2011 9:50 AM EDT Office Visit [place] [address] Halima Shepard APRN [facility] DR [place] [address] Hip replacement arthroplasty (Primary Dx) Discharge Disposition: Home Social History [...] Progress Notes * Halima Shepard APRN - 01/07/2011 10:41 AM EDT DATE OF SERVICE: 01/07/2011 CHIEF COMPLAINT: Sona reports back to clinic now about five months out from her right hip arthroplasty for a rotary total joint visit. PERTINENT SURGICAL HISTORY: 08/01/2010, right total hip arthroplasty by Dr. Amador. SUBJECTIVE: Sona tells that me in general things are coming along nicely. It is her arthritic right knee that is slowing her down. We have injected in the past. She tells me her last steroid injection lasted about five months, but she is limping a bit, watching her some with abductor insufficiency some of it; however, is antalgic favoring the right knee. She tends to not swing, bend the knee as naturally as the contralateral left side. She admits that she does not swing it through supposedly. Despite the bad knee she is not using any assistive devices and she is not taking medication for it regularly. When she does require medicine for aches and pain she tends to take a couple of Advil nothing consistently. She has had no infections, accidents, or injuries that would threaten her total joint. She is getting back into gardening season. She is not particularly aerobic part of that because of the knee, but in general she feels like things are coming along nicely. OBSERVED: The patient reports back to clinic. She does have a mild abductor insufficiency, which partially disappears when she walks further distance. She is using no assistive device to get around. Her incision line is medium, pink, and healing kindly. There is no edema in the lower extremities. Peripheral pulses are 2+. Sensation is normal throughout the lower extremities to light touch. While seated, she has free easy rotation of femurs. No pain. She has no shucking to axial loading of each femur. Her calves are soft. X-RAY: None today. ASSESSMENT: Very satisfactory five month postoperative visit concerning right total hip. PLAN: The patient and I reviewed her total joint precautions. In general she is doing beautifully. We will see her back in the clinic in 07/2011 for her one year postoperative visit concerning her right hip. We will check her left hip at that point time too, which is also postop hip. The patient is in agreement with this plan. documented in this encounter Plan of Treatment Upcoming Encounters Date Type Department Care Team (Late st Contact Info) Description 11/19/2024 9:45 AM EDT Office Visit [place] [address] Augustine Regan MD [facility] [place] [address] documented as of this encounter Visit Diagnoses Diagnosis Hip replacement arthroplasty- Primary Hip joint replacement by other means documented in this encounter Care Teams Paraprofessional Education Assistant Relationship Specialty Start Date End Date Rebecca Kumar MD [address] [address] PCP - General 06/19/10 09/22/13 documented as of this encounter
--- NOTE | 2024-07-09 06:30 | DI.RAD_ITS ---
Exam(s) XR SHOULDER LT COMPLETE 2+V EXAM: XR SHOULDER LT COMPLETE 2+V CLINICAL HISTORY: L shoulder pain,m25.512. TECHNIQUE: 2D digital imaging was performed. 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 There is no corresponding osseous Bankart lesion of the osseous glenoid. There is also small adjacent soft tissue calcific density measuring 3 millimeters which is either related to a element of calcific rotator cuff tendinitis or a fracture fragment off the greater tuberosity. The re also degenerative subarticular cysts noted in the lateral half of the humeral head. The subacromial space height height is lower normal. AC joint appears unremarkable. There are surgi luis clips in the ipsilateral left axilla. IMPRESSION: Abnormal humeral head findings as above. Correlation with any history of trauma recommended. Recomm end MRI follow-up. DATA REPOSITORY: RADIATION DOSE DELIVERED:
--- NOTE | 2024-07-09 06:30 | DI.US_ITS ---
Exam(s) US LOWER EXTREMITY VENOUS RT EXAM: US LOWER EXTREMITY VENOUS RT CLINICAL HISTORY: rt knee bulging,rt knee pain,r22.41 TECHNIQUE: Grayscale, color, and doppler imaging of the deep venous system of the right lower extrem ity was performed. COMPARISON: No exams were available for comparison FINDINGS: There is no evidence of intraluminal thrombus and there is normal compression and augmentation demons trated within the common femoral vein, femoral vein, and popliteal vein. In the ipsilateral calf the interrogated veins also exhibit normal compression/ augmentation properti es. The ipsilateral saphenofemoral junction is patent. There is a Mcclendon cyst in the medial popliteal fossa noted measuring 3.9 x 1.9 x 3.4 cm IMPRESSION: 1. No evidence of DVT in the right lower extremity. 2. Mcclendon cyst noted in the medial popliteal fossa measurements as above. DATA REPOSITORY:
== END 2024-07-09 00:32 ==
LOC: DI 00:14
PROVIDERS: PCP Family Medicine; Visit Provider Family Medicine
DX: M25.512 Pain in left shoulder (principal); R22.41 Localized swelling, mass and lump, right lower limb
CPT/HCPCS: 73030; 93971

== ENCOUNTER 2024-07-22 00:03 | Outpatient (CLI) | payer MEDICARE, OTHER, SELFPAY ==
--- NOTE | 2024-07-22 06:30 | DI.CT_ITS ---
Exam(s) CT UPPER EXTREMITY LT WO EXAM: CT UPPER EXTREMITY LT WO CLINICAL HISTORY: acquired deformity of lt shoulder, M21.929, see xray lt shoulder TECHNIQUE: Imaging Protocol: Axial computed tomography images with coronal and sagittal reformatted images were created and reviewed. CONTRAST MATERIAL: Noncontrast COMPARISON: CR XR SHOULDER LT COMPLETE 2+V from 07/09/2024 FINDINGS: Bones: There is no evidence of acute fracture or dislocation. There is a wedge-shaped deformity in th e superolateral humeral head. Some spurring at the humeral head as well as inferior acromion. Mild de generative changes noted at the glenohumeral joint. Bony alignment is satisfactory. No cellulitic or osteomyelitic changes are identified. No lytic or sclerotic lesions are identified. Soft Tissues: Surgical clips in the axilla. Fluid is noted in the subcoracoid bursa. Some calcificat ions in the soft tissues near the humeral head. Findings could indicate calcific tendinosis or calcif ic bursitis. 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 Adjacent degenerative changes. No suspicious features. RADIATION DOSE DELIVERED: 131.26mGy.cm Total DLP DATA REPOSITORY: All CT scans at this facility are submitted to the National Radiology Data Registry (NRDR) Dose Index Registry (DIR) with the [employer] (A[employer]). RADIATION OPTIMIZATION: All CT scans at this facility use at least one of these dose optimization te chniques: automated exposure control; mA and/or kV adjustment per patient size (includes targeted exa ms where dose is matched to clinical indication); or iterative reconstruction.
== END 2024-07-22 00:23 ==
LOC: DI 00:03
PROVIDERS: PCP Family Medicine; Visit Provider Family Medicine
DX: M21.922 Unspecified acquired deformity of left upper arm (principal)
CPT/HCPCS: 73200

== ENCOUNTER → 2024-10-20 13:27 | Outpatient (BNVA) | payer MEDICARE, OTHER, SELFPAY | PROVIDERS: PCP Family Medicine; Referring Provider Family Medicine; Visit Provider Student in an Organized Health Care Education/Training Program | DX: M75.102 Unspecified rotator cuff tear or rupture of left shoulder, not specified as traumatic (principal); M12.812 Other specific arthropathies, not elsewhere classified, left shoulder | CPT/HCPCS: 99214 ==

== ENCOUNTER 2024-11-30 02:02 | Outpatient (CLI) | payer MEDICARE, OTHER, SELFPAY ==
[2024-11-30 08:48] LABS: Hemoglobin A1C 5.9 % (<5.7)
[2024-11-30 08:51] LABS: ALT 17 U/L (14-59); AST 23 U/L (15-37); Albumin 4.2 g/dL (3.4-5.0); Alkaline Phosphatase 67 U/L (46-116); Anion Gap 9.9 mmol/L (3-11); BUN 44 mg/dL (7-18); Bilirubin, Total 0.3 mg/dL (0.2-1.0); CO2 24.1 mmol/L (21.0-32.0); CREATININE 1.3 mg/dL (0.55-1.02); Calcium 9.4 mg/dL (8.5-10.1); Calculated LDL 65 mg/dL (<100); Chloride 103 mmol/L (98-107); Cholesterol 148 mg/dL (<200); Estimated GFR 41.57 (mL/min/1.73m2); Glucose 104 mg/dL (74-106); HDL Cholesterol 50 mg/dL (>or=50); Potassium 4.3 mmol/L (3.5-5.1); Sodium 137 mmol/L (136-145); Total Protein 7.5 g/dL (6.4-8.2); Triglyceride 166 mg/dL (<150)
[2024-11-30 09:25] LABS: Uric Acid 5.3 mg/dL (2.6-6.0)
== END 2024-11-30 02:03 | disposition home or self-care (01) ==
LOC: LBO 02:02
PROVIDERS: PCP Family Medicine; Visit Provider Family Medicine
DX: M10.9 Gout, unspecified (principal); I10 Essential (primary) hypertension; E11.9 Type 2 diabetes mellitus without complications
CPT/HCPCS: 36415; 80053; 80061; 83036; 84550

== ENCOUNTER → 2024-12-14 11:03 | Outpatient (BNVA) | payer MEDICARE, OTHER, SELFPAY | PROVIDERS: PCP Family Medicine; Referring Provider Family Medicine; Visit Provider Student in an Organized Health Care Education/Training Program | DX: M75.102 Unspecified rotator cuff tear or rupture of left shoulder, not specified as traumatic (principal); M12.812 Other specific arthropathies, not elsewhere classified, left shoulder | CPT/HCPCS: 20610; J1010 ==

== ENCOUNTER 2025-01-21 07:31 | Emergency (ER) | payer MEDICARE, OTHER, SELFPAY ==
[2025-01-21 07:44] VITALS: BP 142/82; PULSE 82; RESP 18; TEMP 36.8; O2SAT 98
--- NOTE | 2025-01-21 08:04 | W.ED.GENAD ---
Discharge Plan Disposition Patient Disposition: Home Condition: Good Discharge Details Clinical Impression: Tick bite Primary Care Provider: Erin Friedman ED Provider: Kerry Urban Home Meds and New Rx's Prescriptions: New doxycycline hyclate 100 mg tablet 200 mg PO ONCE Qty: 2 0RF Continued diphth,pertus(acell),tetanus 2.5-8-5 Lf-mcg-Lf/0.5mL syringe 0.5 ml IM ONCE Qty: 0.5 0RF Rx Instructions: as a single dose allopurinol 100 mg tablet 100 mg PO DAILY Qty: 90 4RF atorvastatin 20 mg tablet 20 mg PO DAILY Qty: 90 5RF lisinopril [Zestril] 20 mg tablet 20 mg PO DAILY Qty: 90 4RF spironolactone 25 mg tablet 12.5 mg PO DAILY Qty: 90 4RF torsemide 20 mg tablet 20 mg PO DAILY Qty: 90 4RF trazodone 50 mg tablet 50 mg PO QHS Qty: 90 5RF aspirin 81 mg tablet,delayed release (DR/EC) 81 mg PO DAILY cholecalciferol (vitamin D3) 25 mcg (1,000 unit) capsule 25 mcg PO DAILY latanoprost 0.005 % drops 1 drp ophthalmic (eye) QPM brinzolamide [Azopt] 1 % Drops,Suspension 1 drp OPHTHALMIC (EYE) BID timolol maleate 0.5 % Drops 1 drp OPHTHALMIC (EYE) DAILY Discharge Instructions Instructions: Insect Bites and Stings ED Additional Instructions: Tick was removed in the ER today. It was not engorged but was very small, concerning for deer tick. After breakfast, please take your dose of Doxycycline (2 tabs at once). Monitor area for signs of infection including spreading redness, increased pain, drainage, fevers/chills or other new/worsening symptoms. If you develop these or other new/worsening symptoms, please seek care urgently once again. Otherwise, please follow up with primary care. Referrals: Erin Friedman MD, [place] [Primary Care Provider, Medicine] [facility] General Date/Time Provider Initiated Documentation: 01/21/25 07:50. Limitations to Documentation: no limitations. Information obtained by: patient, RN notes reviewed and old records reviewed. History of Present Illness 79 year old F presents to the emergency department with the chief complaint of tick bite right upper, inner thigh, described as similar to prior episodes, and is localized to the right and lower extremity. Patient started experiencing this minute(s) (noticed just prior to arrival, unclear when she got this) and it has been constant. No relieving factors improve symptom(s), No exacerbating factors reported . Related Data Home Medications ?Medication ?Instructions ?Recorded ?Confirmed brinzolamide 1 % eye 1 drp ophthalmic (eye) BID 12/10/21 01/21/25 drops,suspension (Azopt) timolol maleate 0.5 % eye drops 1 drp ophthalmic (eye) DAILY 12/10/21 01/21/25 aspirin 81 mg tablet,delayed 81 mg PO DAILY 01/05/24 01/21/25 release cholecalciferol (vitamin D3) 25 25 mcg PO DAILY 01/05/24 01/21/25 mcg (1,000 unit) capsule latanoprost 0.005 % eye drops 1 drp ophthalmic (eye) QPM 01/05/24 01/21/25 allopurinol 100 mg tablet 100 mg PO DAILY #90 tabs 07/06/24 01/21/25 atorvastatin 20 mg tablet 20 mg PO DAILY #90 tabs 07/06/24 01/21/25 diphth,pertus(acell),tetanus 2.5 0.5 ml IM ONCE #0.5 mL 07/06/24 01/21/25 Lf unit-8 mcg-5 Lf/0.5mL IM syringe lisinopril 20 mg tablet (Zestril) 20 mg PO DAILY #90 tabs 07/06/24 01/21/25 spironolactone 25 mg tablet 12.5 mg (1/2 x 25 mg) PO DAILY #90 07/06/24 01/21/25 tabs torsemide 20 mg tablet 20 mg PO DAILY #90 tabs 07/06/24 01/21/25 trazodone 50 mg tablet 50 mg PO QHS #90 tabs 07/06/24 01/21/25 doxycycline hyclate 100 mg tablet 200 mg (2 x 100 mg) PO ONCE #2 tabs 01/21/25 Previous Rx's ?Medication ?Instructions ?Recorded allopurinol 100 mg tablet 100 mg PO DAILY #90 tabs 07/06/24 atorvastatin 20 mg tablet 20 mg PO DAILY #90 tabs 07/06/24 diphth,pertus(acell),tetanus 2.5 0.5 ml IM ONCE #0.5 mL 07/06/24 Lf unit-8 mcg-5 Lf/0.5mL IM syringe lisinopril 20 mg tablet (Zestril) 20 mg PO DAILY #90 tabs 07/06/24 spironolactone 25 mg tablet 12.5 mg (1/2 x 25 mg) PO DAILY #90 07/06/24 tabs torsemide 20 mg tablet 20 mg PO DAILY #90 tabs 07/06/24 trazodone 50 mg tablet 50 mg PO QHS #90 tabs 07/06/24 doxycycline hyclate 100 mg tablet 200 mg (2 x 100 mg) PO ONCE #2 tabs 01/21/25 Allergies Allergy/AdvReac Type Severity Reaction Status Date / Time dipivefrin (From Propine) Allergy Intermediate Unknown Verified 01/21/25 07:45 hydrocodone AdvReac Intermediate Other (See Verified 01/21/25 07:45 Comment) hydromorphone (From Dilaudid) AdvReac Intermediate Other (See Verified 01/21/25 07:45 Comment) oxycodone AdvReac Intermediate Other (See Verified 01/21/25 07:45 Comment) nylon AdvReac Mild Skin Rash Verified 01/21/25 07:45 General Stated Complaint: InsectBite COLLIN: 4 Review of Systems Constitutional Constitutional: Reports as per HPI, Denies chills and Denies fever(s) Musculoskeletal Musculoskeletal: Reports as per HPI Integumentary/Breasts Skin/Breast: Reports as per HPI Exam Const General: cooperative, healthy appearing, comfortable, no acute distress and well developed Nutritional Appearance: average body habitus and well nourished Orientation: alert and awake Resp Effort & Inspection: normal respiratory effort, able to speak in complete sentences and no respiratory distress Cardio Rate: regular rate Rhythm: regular rhythm Skin General skin exam: erythema (small area of erythema, small tick embedded still) Extrem Upper/lower leg/hip images:  1. Small area of erythema, small, non-engorged tick is visualized. Course Vital Signs Vital signs: Vital Signs Temperature 36.8 C 01/21/25 07:44 Pulse 82 01/21/25 07:44 Respiratory Rate 18 01/21/25 07:44 Blood Pressure 142/82 H 01/21/25 07:44 Pulse Oximetry 98 01/21/25 07:44 Temperature 36.8 C 01/21/25 07:44 Temperature Source Oral 01/21/25 07:44 Pulse 82 01/21/25 07:44 Respiratory Rate 18 01/21/25 07:44 Blood Pressure 142/82 H 01/21/25 07:44 Blood Pressure Position Sitting 01/21/25 07:44 Pulse Oximetry 98 01/21/25 07:44 Oxygen Delivery Method Room Air 01/21/25 07:44 Oxygen Flow Rate 0 01/21/25 07:44 Pain Level 0 01/21/25 07:44 Medical Decision Making Patient is a pleasant 79-year-old female presenting with chief complaint of right inner thigh tick bite. Unclear when she would have been exposed. She reports she typically wears long pants outside but may have been able to pick this up yesterday. She denies any constitutional symptoms, feels otherwise well. Noticed that just prior to arrival. States that there is a small black dot surrounded by a small area of red consistent with when she has had tick bites historically. On exam, patient appears nontoxic. Hemodynamically stable. The small black dot that the patient had seen is actually a very tiny tick concerning for deer tick. This was able to be removed by myself with tweezers. Wound was then cleansed. The diameter of the circumferential erythematous area is less than 1 cm. No evidence to suggest cellulitis. More consistent with typical reaction to tick bite. Given the type of tick identified and the fact that it was still embedded for unknown length of time, I do feel that one-time dose of 200 mg p.o. of doxycycline is appropriate. We did discuss photosensitivity. We also discussed signs symptoms of secondary cellulitis with the skin opening and when to seek care urgently once again. Patient has had this in the past. Return precautions discussed. All her questions and concerns were addressed and patient is in agreement this plan. PFSH All Active Problems (Updated 01/21/25 @ 08:04 by AME Bhakta) Tick bite (Acute) Rotator cuff tear arthropathy of left shoulder (Acute) Metal bone fixation hardware in place (Acute) No MRI In brain Acquired deformity of shoulder (Acute) Left shoulder pain (Acute) Gout (Chronic) Pseudophakia, both eyes (Acute) Osteopenia (Acute) Arteriosclerotic cardiovascular disease (ASCVD) (Acute) YOLANDA (obstructive sleep apnea) (Chronic) Insomnia (Acute) Glucose intolerance (impaired glucose tolerance) (Acute) Hyperuricemia (Acute) Hyperlipemia (Acute) Glaucoma (Chronic) Exertional dyspnea (Acute) Hypertension (Chronic) Diastolic dysfunction (Acute) Depression (Chronic) CKD (chronic kidney disease) stage 3, GFR 30-59 ml/min (Acute) GERD (gastroesophageal reflux disease) (Chronic) Medical History (Updated 01/21/25 @ 08:04 by AME Bhakta) Scoliosis (~07/1999) w/ surgical intervention Cystocele, unspecified (~07/10/87) Cerebral aneurysm (~01/1988) Tear of supraspinatus tendon Surgical History (Updated 01/05/24 @ 16:59 by Odette Araujo RN) History of total right knee replacement (~2012) History of salpingo-oophorectomy (~12/1976) Status post right rotator cuff repair (~10/30/05) H/O cataract removal with insertion of prosthetic lens (~11/1999) H/O left breast implant (~02/1992) Re-implant 11/1993 Removal 06/2001 H/O cerebral aneurysm repair History of coronary artery stent placement (~09/2006) H/O left mastectomy (~10/1991) H/O: hysterectomy (~07/1977) History of tonsillectomy (~08/1991) S/P rotator cuff repair (~2001) LT arm History of hip replacement LT x2 #1 09/02/06 #2 Unknown date RT 08/02/09 Family History (Updated 01/12/24 @ 10:43 by Kat Ratliff) Mother Cancer Diabetes Hyperlipidemia Hypertension Father Heart disease Sister Breast cancer Dementia Diabetes Heart disease Hyperlipidemia Hypertension Brother Heart disease Hyperlipidemia Paternal Grandmother Hyperlipidemia Hypertension Social History (Updated 01/12/24 @ 10:45 by Kat Ratliff) Smoking/Tobacco Use Status: Never Second Hand Exposure: Yes Smoking risk assessment performed?: Yes Alcohol Intake: current Alcohol Intake frequency: a few times a month Alcohol type: beer Drug use: Never Substance use type: does not use Adopted: No Caregiver/Support person: No Household members: none Housing: house Number of Children: 2 number of grandchildren: 2 Communication Needs: Corrective Lenses Education Level: high school Do you need help understanding health information?: Often current occupation: retired Sexually active: No Do you think of yourself as: straight/heterosexual Current gender identity: female What is your relationship status?: How often do you talk on the phone with friends or family?: three or more times per week How often do you get together with friends or relatives?: three or more times per week Do you belong to any clubs or organized social groups?: no Panel score (0-1 are the most socially isolated patients): 1 Dimple/Worship: None Special dimple needs: No Seatbelt use: always Helmet use: No Drive intox or ride w/intox route cdl driver: No Firearms in home: Yes Firearms unloaded and locked: Yes Do you feel safe at home: Yes
[2025-01-21 08:17] VITALS: BP 147/77; PULSE 84; RESP 20; TEMP 36.6; O2SAT 99
== END 2025-01-21 08:17 | disposition home or self-care (01) ==
PROVIDERS: Emergency Provider Physician Assistant; PCP Family Medicine
DX: S70.361A Insect bite (nonvenomous), right thigh, initial encounter (principal); I10 Essential (primary) hypertension; Z79.84 Long term (current) use of oral hypoglycemic drugs; Z95.5 Presence of coronary angioplasty implant and graft; X58.XXXA Exposure to other specified factors, initial encounter
CPT/HCPCS: 99283

== ENCOUNTER 2025-01-26 15:03 | Outpatient (CLI) | payer MEDICARE, OTHER, SELFPAY ==
--- NOTE | 2025-01-26 14:00 | DI.RAD_ITS ---
Exam(s) XR SHOULDER RT COMPLETE 2+V EXAM: XR SHOULDER RT COMPLETE 2+V CLINICAL HISTORY: RIGHT SHOULDER PAIN. TECHNIQUE: 2D digital imaging was performed. COMPARISON: CR XR SHOULDER LT COMPLETE 2+V from 07/09/2024 FINDINGS: Two views. No evidence of acute fracture. There is significant diminution of the subacromial space indicating chronic full-thickness rotator cuff tear. There are moderate degenerative changes in the glenohumeral joint. Degenerative changes also evident in the AC joint. No osseous lesions. Bone density is age -appropriate. IMPRESSION: Advanced diminution of the subacromial space indicating chronic full-thickness rotator cuff tear. Also degenerative changes. DATA REPOSITORY: RADIATION DOSE DELIVERED:
== END 2025-01-26 15:04 | disposition home or self-care (01) ==
LOC: DIORS 15:03
PROVIDERS: PCP Family Medicine; Referring Provider Family Medicine; Visit Provider Student in an Organized Health Care Education/Training Program
DX: M25.511 Pain in right shoulder (principal); M12.811 Other specific arthropathies, not elsewhere classified, right shoulder
CPT/HCPCS: 99213; 73030

== ENCOUNTER 2025-03-03 03:24 | Outpatient (CLI) | payer MEDICARE, OTHER, SELFPAY ==
--- NOTE | 2025-03-03 07:00 | DI.CT_ITS ---
Exam(s) CT UPPER EXTREMITY RT WO EXAM: CT UPPER EXTREMITY RT WO CLINICAL HISTORY: SURGICAL PLANNING,rotator cuff arthropathy,m12.811. TECHNIQUE: Imaging Protocol: Axial computed tomography images with coronal and sagittal reformatted images were created and reviewed. COMPARISON: CT CT UPPER EXTREMITY LT WO from 07/22/2024 CR XR SHOULDER RT COMPLETE 2+V from 01/26/2025 FINDINGS: The examination is limited due to patient motion artifact. Bones: The osseous structures and articular surfaces are intact. Bony alignment is satisfactory. There are findings suggestive of prior rotator cuff surgery. There are moderate degenerative changes seen at the glenohumeral joint characterized by joint space narrowing and osteophytes. There is mild subluxation of the humeral head relative to the glenoid suggesting chronic rotator cuff tear. There are degenerative changes seen at the acromioclavicular joint. There is narrowing of the acromial humeral interval. Age-appropriate degenerative changes are present throughout the visualized cervical and thoracic spine. Chondrocalcinosis is present. Soft Tissues: The visualized lungs show no focal consolidating infiltrates. There is mild fatty atrophy of the supraspinatus and infraspinatus muscles. IMPRESSION: Degenerative changes seen at the glenohumeral and acromioclavicular joints. RADIATION DOSE DELIVERED: 147.34mGy.cm Total DLP 147.34mGy.cm Total DLP DATA REPOSITORY: All CT scans at this facility are submitted to the National Radiology Data Registry (NRDR) Dose Index Registry (DIR) with the [employer] (A[employer]). RADIATION OPTIMIZATION: All CT scans at this facility use at least one of these dose optimization techniques: automated exposure control; mA and/or kV adjustment per patient size (includes targeted exams where dose is matched to clinical indication); or iterative reconstruction.
== END 2025-03-03 03:44 ==
LOC: DI 03:25
PROVIDERS: PCP Family Medicine; Visit Provider Student in an Organized Health Care Education/Training Program
DX: M12.811 Other specific arthropathies, not elsewhere classified, right shoulder (principal)
CPT/HCPCS: 73200

== ENCOUNTER → 2025-03-09 09:53 | Outpatient (BNVA) | payer MEDICARE, OTHER, SELFPAY | PROVIDERS: PCP Family Medicine; Referring Provider Family Medicine; Visit Provider Student in an Organized Health Care Education/Training Program | DX: M12.811 Other specific arthropathies, not elsewhere classified, right shoulder (principal); N18.9 Chronic kidney disease, unspecified | CPT/HCPCS: 99214 ==

== ENCOUNTER 2025-04-14 05:57 | Day surgery (SDC) | payer MEDICARE, OTHER, SELFPAY ==
--- NOTE | 2025-04-13 19:03 | W.ANESPRE ---
General Info Date of Service Date Performed: 04/14/25 Height: 4 ft 10 in Weight: 64.41 kg Body Mass Index (BMI): 29.7 Surgical Procedure: Operation Date: 04/14/25 07:40 Proposed Procedure Side Surgeon p Shoulder Reverse Total Arthroplasty, Biceps Tenodesis (Arthrex) Right Russ Graves MD s Possible Hardware Removal Right Russ Graves MD Meds Allergies and Home Medications Allergies Allergy/AdvReac Type Severity Reaction Status Date / Time dipivefrin (From Propine) Allergy Intermediate Unknown Verified 04/14/25 06:12 hydrocodone AdvReac Intermediate Other (See Verified 04/14/25 06:12 Comment) hydromorphone (From Dilaudid) AdvReac Intermediate Other (See Verified 04/14/25 06:12 Comment) oxycodone AdvReac Intermediate Other (See Verified 04/14/25 06:12 Comment) nylon AdvReac Mild Skin Rash Verified 04/14/25 06:12 Home Medication ?Medication ?Instructions ?Recorded brinzolamide 1 % eye 1 drp ophthalmic (eye) BID 12/10/21 drops,suspension (Azopt) timolol maleate 0.5 % eye drops 1 drp ophthalmic (eye) DAILY 12/10/21 aspirin 81 mg tablet,delayed 81 mg PO DAILY 01/05/24 release cholecalciferol (vitamin D3) 25 25 mcg PO DAILY 01/05/24 mcg (1,000 unit) capsule latanoprost 0.005 % eye drops 1 drp ophthalmic (eye) QPM 01/05/24 allopurinol 100 mg tablet 100 mg PO DAILY #90 tabs 07/06/24 atorvastatin 20 mg tablet 20 mg PO DAILY #90 tabs 07/06/24 diphth,pertus(acell),tetanus 2.5 0.5 ml IM ONCE #0.5 mL 07/06/24 Lf unit-8 mcg-5 Lf/0.5mL IM syringe spironolactone 25 mg tablet 12.5 mg (1/2 x 25 mg) PO DAILY #90 07/06/24 tabs torsemide 20 mg tablet 20 mg PO DAILY #90 tabs 07/06/24 trazodone 50 mg tablet 50 mg PO QHS #90 tabs 07/06/24 lisinopril 20 mg tablet (Zestril) 20 mg PO DAILY #90 tabs 03/21/25 Current Visit Medications: Current Medications Generic Name Dose Route Start Last Admin Trade Name Freq PRN Reason Stop Dose Admin Ringer's Solution 1,000 mls @ 30 mls/hr 04/14/25 06:00 IV 04/14/25 23:59 INFUSION ANNIE Cefazolin Sodium/Dextrose 2 gm in 50 mls @ 100 mls/hr 04/14/25 06:00 Ancef Duplex IVPB 04/14/25 23:59 PREOP ANNIE Tranexamic Acid/Sodium Chloride 1,000 mg in 100 mls @ 600 mls/hr 04/14/25 06:00 IVPB 04/14/25 23:59 PREOP ANNIE IV Miscellaneous Supplies 1 each 04/14/25 06:00 Iv Access IV 04/14/25 23:59 DIRECTED ANNIE Sodium Chloride 0 ml 04/14/25 06:00 Normal Saline Flush 10 Ml Syr IV 04/14/25 23:59 PRN PRN Sodium Chloride 0 ml 04/14/25 06:00 Normal Saline 10 Ml Vial IJ 04/14/25 23:59 DIRECTED PRN Sterile Water 0 ml 04/14/25 06:00 Water,Injection,Sterile 10 Ml Vial IJ 04/14/25 23:59 DIRECTED PRN PFSH Active Problems Active Problems: Problem Status Onset Code Rotator cuff arthropathy of right shoulder Acute M12.811 Rotator cuff tear arthropathy of left shoulder Acute M75.102, M12.812 Metal bone fixation hardware in place Acute Z96.7 Acquired deformity of shoulder Acute M21.929 Left shoulder pain Acute M25.512 Gout Chronic M10.9 Pseudophakia, both eyes Acute Z96.1 Osteopenia Acute M85.80 Arteriosclerotic cardiovascular disease (ASCVD) Acute I25.10 YOLANDA (obstructive sleep apnea) Chronic G47.33 Insomnia Acute G47.00 Glucose intolerance (impaired glucose tolerance) Acute R73.02 Hyperuricemia Acute E79.0 Hyperlipemia Acute E78.5 Glaucoma Chronic H40.9 Exertional dyspnea Acute R06.09 Hypertension Chronic I10 Diastolic dysfunction Acute I51.89 Depression Chronic F32.A CKD (chronic kidney disease) stage 3, GFR 30-59 ml/min Acute N18.30 GERD (gastroesophageal reflux disease) Chronic K21.9 Medical History Medical History Scoliosis (~07/1999) w/ surgical intervention Cystocele, unspecified (~07/10/87) Cerebral aneurysm (~01/1988) Tear of supraspinatus tendon Surgical History Surgical History History of total right knee replacement (~2012) History of salpingo-oophorectomy (~12/1976) Status post right rotator cuff repair (~10/30/05) H/O cataract removal with insertion of prosthetic lens (~11/1999) H/O left breast implant (~02/1992) Re-implant 11/1993 Removal 06/2001 H/O cerebral aneurysm repair History of coronary artery stent placement (~09/2006) H/O left mastectomy (~10/1991) H/O: hysterectomy (~07/1977) History of tonsillectomy (~08/1991) S/P rotator cuff repair (~2001) LT arm History of hip replacement LT x2 #1 09/02/06 #2 Unknown date RT 08/02/09 Tobacco Smoking/Tobacco Use Status: Never Passive smoking exposure: Yes Second hand exposure: Yes Alcohol Alcohol Intake: current Alcohol intake frequency: a few times a month Substance Use Substance use: Never Substance use type: does not use Anesthesia Assessment and Plan Anesthesia History Personal History: No History of Anesthesia Complications Family History: No Family History of Anesthesia Complications Exercise Tolerance Exercise Tolerance: Metabolic Equivalents>4 Cardiac & Pulmonary Exam Cardiac Exam: Normal S1/S2 Heart Sounds Pulmonary Exam: Clear Bilateral Breath Sounds Implantable Cardiac Device Does patient have a Pacemaker or an ICD?: No Airway Exam Known Difficult Airway: No Mallampati Class: 3 Mouth Opening: Narrow (< 3cm) Thyromental Distance: Greater than 3 cm Neck Range of Motion: Limited ROM Neck Circumference: Normal Teeth Condition: Normal Dentition ASA Classification ASA Score: ASA 3 Emergency Case?: No NPO Status NPO Status: NPO Clears >2 hours, Solids >8 hours Anesthesia Plan Resuscitation Status: Full Code Anesthesia Technique: General Anesthesia Airway Planned: Endotracheal Tube Pain Management: Surgeon and patient request nerve block Monitors Used: Standard Monitors Preoperative Comments:: 79 yo for total shoulder. Sig PMHx: HTN (lisinopril, spironolactone. well controlled home BPs), CAD (? has a stent, she is unclear. it was a while ago), carotid artery stenosis (she is unclear on this, does states stroke in the past), diastolic dysfunction (torsemide), YOLANDA, GERD (occ), CKDIII, s/p subarachnoid/aneurysm repair ', Diallo rods, depression. Never smoker, occ EtOH. She is unclear about all of her cardiovascular/neurovascular history. States that she can go up and down stairs without much difficulty. Denies chest pain with exertion. Discussed risks of regional anesthesia including nerve injury which can be permanent. Nerve injury can also occur do to the positioning and the surgery itself.
[2025-04-13 19:06] VITALS: BMI 29.7
[2025-04-14] VITALS (30 sets, daily range): BP systolic 89–166; BP diastolic 39–66; PULSE 45–61; RESP 14–28; TEMP 36–36.4; O2SAT 94–100
[2025-04-14] MEDS: Lactated Ringers 1,000 ML 30 ML IV (07:02)
--- NOTE | 2025-04-14 07:10 | W.PM.DSUDISC ---
Date of service: 04/14/25 Discharge Plan Disposition Patient Disposition: Home Discharge Details Attending Provider: Russ Graves Primary Care Provider: Erin Friedman Home Meds and New Rx's Prescriptions: New naproxen 250 mg tablet 250 mg PO BID PRN (Reason: Moderate pain) Qty: 12 0RF tramadol 50 mg tablet 50 mg PO TID PRNQty: 14 0RF Continued diphth,pertus(acell),tetanus 2.5-8-5 Lf-mcg-Lf/0.5mL syringe 0.5 ml IM ONCE Qty: 0.5 0RF Rx Instructions: as a single dose allopurinol 100 mg tablet 100 mg PO DAILY Qty: 90 4RF atorvastatin 20 mg tablet 20 mg PO DAILY Qty: 90 5RF spironolactone 25 mg tablet 12.5 mg PO DAILY Qty: 90 4RF torsemide 20 mg tablet 20 mg PO DAILY Qty: 90 4RF trazodone 50 mg tablet 50 mg PO QHS Qty: 90 5RF aspirin 81 mg tablet,delayed release (DR/EC) 81 mg PO DAILY cholecalciferol (vitamin D3) 25 mcg (1,000 unit) capsule 25 mcg PO DAILY latanoprost 0.005 % drops 1 drp ophthalmic (eye) QPM lisinopril [Zestril] 20 mg tablet 20 mg PO DAILY Qty: 90 4RF brinzolamide [Azopt] 1 % Drops,Suspension 1 drp OPHTHALMIC (EYE) BID timolol maleate 0.5 % Drops 1 drp OPHTHALMIC (EYE) DAILY Discharge Instructions Additional Instructions: Surgery: Right reverse total shoulder arthroplasty (constrained liner) with biceps tenodesis and removal of hardware 04/14/2025 Activity: Do not lift anything heavier than a coffee. You should keep your arm at your side in a relatively neutral position at all times except for gentle range of motion exercises, physical therapy, and essential activities. You should use the sling whenever you are out of the house. At home it is best to remove the sling and rest the arm on a pillow at your side or support the operative side with your other hand. A physical therapy prescription will be sent electronically to start in about 3 weeks. STANDARD Reverse TSA Protocol. Prescriptions: Naproxen 250 mg take 1 every 12 hours with a meal as needed for moderate pain (use cautiously given kidney disease?be sure to stay well-hydrated while taking this medication) Tramadol 50 mg take 1 every 8 hours as needed for severe pain You may use [id number] Tylenol (acetaminophen) as needed for mild pain. These pain medications may be taken all at once or in different combinations as needed. Also, recommend Colace (docusate) as a stool softener as surgery and pain medicine cause constipation. Dressings: Leave dressing in place until follow-up. Keep clean and dry at all times. No showers please. Follow-up: 10-[address] Graves You may take off the leg compression stockings this evening at home. You may also leave them on a few days longer if you have a history of leg swelling or edema. Please call the office during business hours with any questions or concerns. Let us know right away if you develop any redness, drainage, fevers, chest pain, or trouble breathing. Do not drink alcohol or drive for at least 24 hours after anesthesia. Stand Alone Forms: Anesthesia Discharge Inst., [place].Nerve Block Instructions, Alan Boone ([facility]) Referrals: Russ Graves MD [ [facility] STAFF PHYSICIAN, Orthopaedic Surgical] - 04/26/25 10:30 am Discharge Orders Discharge Orders: Discharge Order (Routine); Ordered 04/14/25 Ordered By: Erich Chadwick Discharge Data Discharge Date/Time-TO BE ENTERED AT DEPARTURE: 04/14/25 13:08 DS: Diagnosis Discharge Diagnosis (1) Rotator cuff arthropathy of right shoulder: Status: Acute (2) Tendonitis of long head of biceps brachii of right shoulder: Status: Acute (3) Retained orthopedic hardware: Status: Acute
--- NOTE | 2025-04-14 07:14 | ROE_ITS ---
Operative Note Operative Note PRE-OP DIAGNOSIS: Right: 1. Rotator cuff arthropathy 2. Long head of the biceps tendinopathy 3. Retained prior rotator cuff repair hardware POST-OP DIAGNOSIS: same PROCEDURE: Right: 1. Reverse total shoulder arthroplasty, CPT # 25967 2. Open biceps tenodesis, CPT # 80579 3. Removal of deep implants/hardware, CPT #81912 The quality control assistant was medically required as this procedure involves retraction, protection of neurovascular structures, and manipulation of multiple instruments and implants at the same time, which cannot be done without a skilled quality control assistant. SURGEON: Russ Graves MOLD SPRAYER: Erich Chadwick ANESTHESIA TYPE: Local By Surgeon, General LMA/ETT and Primary Nerve Block Refer to Anesthesia Record ESTIMATED BLOOD LOSS: 150 COMPLICATIONS: None Patient was transported to: PACU Patient's condition: stable Implants: [employer] modular glenoid system baseplate 24 mm 10 degree full wedge standard [employer] modular glenoid system central post 25 mm [employer] modular glenoid system peripheral locking screws 28 mm inferior, 28 mm superior, 16 mm posterior, 16 mm anterior [employer] modular glenoid system glenosphere 36 +4 mm lateralized [employer] humeral stem 135 degrees size 6 [employer] suture cup size 36 posterior offset [employer] humeral insert size 36 +3 mm constrained Indications: Please see complete medical record for details. Findings: Significant long head biceps tenosynovitis, moderate?grade subscapularis tearing, complete loss deficient supraspinatus infraspinatus with erosion loss greater tuberosity acromion and degenerative chondromalacia labral tear Procedure Description: In the operating room, general anesthesia was induced. The patient was positioned beachchair on the operating room table. All bony prominences were well-padded. Preoperative antibiotics were administered. The shoulder was prepped and draped in the usual sterile fashion for shoulder arthroplasty. The correct patient, procedure, and side of the procedure were all verified prior to incision. The deltopectoral approach was preinjected with 0.25% bupivacaine containing epinephrine and taken to the anterior shoulder. Care was taken to bluntly dissect the interval between the deltoid and pectoralis major muscles and to identify the cephalic vein within its fat stripe. The the vein was mobilized laterally. Subdeltoid space and conjoined tendon were freed of adhesions. The long head of the biceps tendon was identified just lateral to the lesser tuberosity. The uppermost margin of the pectoralis major tendon was released fr om the proximal humerus. The long head of the biceps tendon was tenodesed in situ using SutureTape in a [id number] fashion securing it superior margin the pectoralis major tendon. The biceps tendon was amputated and followed proximally to identify the rotator interval. Subscapularis tenotomy was done readily releasing it and removing the remnant and minimizing the greater tuberosity prominence. The supraspinous and infraspinatus were debrided of minimal remnant left on the anterior greater tuberosity and there was nothing through the center to posterior portion. Appropriate coagulation was achieved especially interiorly. The anatomic neck was cut using an oscillating saw with the humeral head bone brought back table in case there was a need for future bone grafting. The proximal humerus was delivered from the wound with adduction and external rotation. The proximal humeral protection plate was used to provisionally confirm suture cup and glenosphere size. Reamers were started appropriately posterior to the bicipital groove taking care to maintain in line approach with the humeral canal. Sequential reaming was done from size 5 up to size 7. Next, the broaches were sequentially used to open the proximal humerus starting with a size 5 and going up to size 6 and sunk to the appropriate depth while maintaining approximately 25 degrees retroversion. There was good metaphyseal fit and rotational control of the proximal humerus with this size. The posterior offset guide was used to ream for the suture cup. Attention was then turned to the glenoid and retractors were placed and a circumferential release performed using the long head of the biceps remnant to remove soft tissue about the glenoid rim. Care was taken inferiorly to work on bone only between 5 and 7:00 o'clock and bluntly elevate tissues inferiorly. The VIP guide was placed on the glenoid and used to confirm placement and trajectory of the central guidepin. The guidepin was inserted and advanced just through the far cortex ensuring adequate central fixation length. The glenoid was prepared according to equipment operator wage hand specifications for a augmented baseplate and central post. The baseplate was impacted onto the glenoid surface. The locking guide was then used to drill and place appropriately lengthed inferior, superior, anterior, and posterior screws. The [id number] reamer was used to confirm adequate peripheral reaming. The glenosphere was applied with the dean of girls and then impacted to engage the Patterson taper. It was then locked with appropriate countersinking of the setscrew. The glenosphere was inspected and found to have good fit, appropriate positioning, and no soft tissue or bony impingement. Attention was then turned back to the proximal humerus. The humeral trial cup was connected. Trialing was commenced with +3 mm liner. The shoulder was reduced and taken through range of motion. This, strict demonstrated good stability and appropriate tension on the deltoid and conjoined tension. The trial components were removed from the proximal humerus. The wound was copiously irrigated with normal saline. The the proximal humeral stem and suture cup were assembled and brought over the proximal humerus. A small amount of vancomycin powder was distributed in the proximal humerus. The humeral component and suture cup were impacted into place. The trial liner added, and the shoulder was reduced and range of motion, stability, and tension confirmed to be appropriate. The final liner was then connected, and range of motion, stability, and tension confirmed. Constrained liner chosen due to to avoid rotator cuff and superior rotator cuff instability. The shoulder was copiously irrigated with Betadine and normal saline. Vancomycin powder was distributed deeply about the shoulder and through subcutaneous tissues. The deltopectoral interval was approximated with 2-0 Monocryl burying the cephalic vein. Subcutaneous tissue was irrigated then closed using 2-0 Monocryl in a buried interrupted fashion. Skin was closed using 3-0 Monocryl in a buried subcuticular fashion. Skin glue was applied to the incision. A silver impregnated bandage was placed over the incision. The extremity was placed into a shoulder immobilizer. The patient awoke from anesthesia without complication and was taken to the recovery room in stable condition. Date of Procedure: 04/14/25
[2025-04-14] MEDS: ceFAZolin 2 GM/50 ML BAG IVPB (08:06)
--- NOTE | 2025-04-14 08:10 | W.ANESNERVE ---
Nerve Block Single Injection Procedure Date and Time Date Performed: 04/14/25 Procedure Start: 07:25 Location Where Procedure Performed Procedure Location: Day Surgery Unit Reason Performed: Postoperative Analgesia Requesting Provider: Russ Graves Timeout Performed Timeout Performed: Yes Monitoring Used Blood Pressure and SpO2 Sterility Sterility: Hand Hygiene, Surgical Cap, Surgical Mask, Sterile Gloves and Chlorhexidine Sedation Given During Procedure Sedation Given (Indicate Dose Given): Propofol IV Dose:: 15 mg Patient Mental Status Patient Mental Status: Sedate with meaningful communication Nerve Block 1st Nerve Block: Laterality: Right Block Type: Interscalene Ultrasound Image Saved?: Yes Needle / Catheter Used: 80mm SonoPlex II Local Anesthetic Bolus (Indicate Dose Given): Lidocaine used for local infiltration of skin, Injected in 3-5ml increments after negative blood aspiration, Bupivacaine 0.5% Dose:: 7 mL and Exparel Dose:: 7 mL Additives (Indicate Dose Given): None Ultrasound: Sterile probe cover and gel used Nerve Stimulator: No twitch or parasthesia noted < 0.5 mA (< 0.8 mA) Paresthesia: None Procedure Tolerated: No Complications Procedure Outcome: Successful Procedure Comment: Pajunk pressure monitor used. Technically very challenging block. Needle advanced with saline hydrodisection. With gentle advancement and hydrodisection unable to get spread within the interscalene groove. Less than ideal local placement accepted to not get too close to plexus. Performed By: Kip Pardo
[2025-04-14] MEDS: TRANEXAMIC ACID/SOD. CHL. 1,000 MG/100 ML BAG 600 MG IVPB (08:11)
[2025-04-14] MEDS: Bupivacaine 0.25% Pres-Free W/EPI 30 ML VIAL (08:24)
[2025-04-14] MEDS: Vancomycin 1,000 MG VIAL 1000 MG (08:36)
[2025-04-14] MEDS: fentaNYL 100 MCG/2 ML VIAL IVP (10:43)
--- NOTE | 2025-04-14 11:00 | DI.RAD_ITS ---
Exam(s) XR SHOULDER RT COMPLETE 2+V EXAM: XR SHOULDER RT COMPLETE 2+V CLINICAL HISTORY: Shoulder Arthritis. TECHNIQUE: 2D digital imaging was performed. Three images were obtained. Grashey and Y views were obtained. COMPARISON: CR XR SHOULDER RT COMPLETE 2+V from 01/26/[address] UPPER EXTREMITY RT WO from 03/03/2025 FINDINGS: BONES: The patient is now status post right reverse total shoulder arthroplasty. No fracture or dislocation. JOINTS: The orthopedic hardware is in good position. No evidence of hardware loosening. SOFT TISSUE: Normal. IMPRESSION: Status post placement of a right reverse total shoulder arthroplasty DATA REPOSITORY: RADIATION DOSE DELIVERED:
--- NOTE | 2025-04-14 11:06 | W.ANESPOSTOP ---
Postoperative Evaluation Date, Time and Location Date Performed: 04/14/25 Time Performed: 11:06 Patient Location: PACU Vital Signs Most Recent Imported Vital Signs: Most Recent Vital Signs Temp Pulse Resp BP Pulse Ox 36.2 C L 55 L 17 148/54 H 97 04/14/25 10:25 04/14/25 11:01 04/14/25 11:01 04/14/25 11:01 04/14/25 11:01 Pain Score Most Recent Pain Score: Most Recent Pain Score Pain Level 3 04/14/25 10:50 Assessment Mental Status: Awake (Alert & Oriented to Patient Baseline) Airway and Respiratory Function: Patent airway with normal (patient baseline) respiratory exam Cardiovascular Function: Hemodynamically Stable Hydration Status: Adequately Hydrated Nausea & Vomiting: No Nausea or Vomiting Pain: Pain is tolerable per patient (in the back of her shoulder. ) Peripheral Nerve Block: Regional nerve block not resolved at time of post operative discharge
[2025-04-14] MEDS: traMADol 50 MG TAB PO (11:36)
[2025-04-14] MEDS: ceFAZolin 1 GM/50 ML BAG IVPB (11:37)
[2025-04-14] MEDS: Lactobacillus Acidophilus CAP 1 CAP PO (12:08)
== END 2025-04-14 13:08 | disposition home or self-care (01) ==
PROVIDERS: PCP Family Medicine; Visit Provider Student in an Organized Health Care Education/Training Program
PROC: (CPT 23472; principal; 2025-04-14 07:30)
PROC: (CPT 20680; 2025-04-14 07:30)
DX: M12.811 Other specific arthropathies, not elsewhere classified, right shoulder (principal); M75.21 Bicipital tendinitis, right shoulder; Z96.9 Presence of functional implant, unspecified; G89.18 Other acute postprocedural pain
CPT/HCPCS: 20680; 23472; 23430; C1713; 64415; 73030; J0131; J0665; J0666; J0690; J1100; J2003; J2405; J2704; J3010; J3373; J3475

== ENCOUNTER 2025-04-26 15:59 | Outpatient (CLI) | payer MEDICARE, OTHER, SELFPAY ==
--- NOTE | 2025-04-26 10:30 | DI.RAD_ITS ---
Exam(s) XR SHOULDER RT COMPLETE 2+V EXAM: XR SHOULDER RT COMPLETE 2+V CLINICAL HISTORY: F/U RIGHT RTSA. TECHNIQUE: 2D digital imaging was performed. COMPARISON: CR XR SHOULDER RT COMPLETE 2+V from 04/14/2025 FINDINGS: Two views There is satisfactory position alignment of the components of the recently placed right shoulder reverse prosthesis. No evidence of fracture nor loosening of the components of the prosthesis. However, there is still some air-gas subjacent to the acromium 12 days post surgery. Correlation with any clinical signs of infection recommended IMPRESSION: As above. Correlation with any clinical signs of infection recommended. DATA REPOSITORY: RADIATION DOSE DELIVERED:
== END 2025-04-26 16:00 | disposition home or self-care (01) ==
LOC: DIORS 15:59
PROVIDERS: PCP Family Medicine; Referring Provider Family Medicine; Visit Provider Student in an Organized Health Care Education/Training Program
DX: Z47.89 Encounter for other orthopedic aftercare (principal); M12.811 Other specific arthropathies, not elsewhere classified, right shoulder
CPT/HCPCS: 99024; 73030

== ENCOUNTER → 2025-07-05 10:20 | Outpatient (BNVA) | payer MEDICARE, OTHER, SELFPAY | PROVIDERS: PCP Family Medicine; Referring Provider Family Medicine; Visit Provider Student in an Organized Health Care Education/Training Program | DX: Z47.1 Aftercare following joint replacement surgery (principal); Z96.611 Presence of right artificial shoulder joint; M12.811 Other specific arthropathies, not elsewhere classified, right shoulder | CPT/HCPCS: 99024 ==

== ENCOUNTER 2025-07-20 09:56 | Emergency (ER) | payer MEDICARE, OTHER, SELFPAY ==
[2025-07-20 10:00] VITALS: BP 113/70; PULSE 74; RESP 16; TEMP 36.6; O2SAT 98
--- NOTE | 2025-07-20 10:31 | NUR.NOTE ---
Animal bite report faxed to [facility], health officer notified. Rabies vaccination order form faxed to Infusion and copy given to patient. Day 3: 07/23/25. Day 7: 07/27/25. Day 14: 08/03/25. Nursing Note:
[2025-07-20] MEDS: Amox. 875/Clav. 125, 2 TABS/BTL 1 TAB PO (11:11)
[2025-07-20] MEDS: Rabies vaccine (PCEC)/PF 2.5 UNITS/ML VIAL IM (11:11)
[2025-07-20 11:19] VITALS: BP 113/78; PULSE 77; RESP 14; TEMP 36.6; O2SAT 100
[2025-07-20] MEDS: Rabies Immune Globulin 1,500 UNIT/5 ML VIAL 1200 UNITS IM (11:19)
--- NOTE | 2025-07-20 12:20 | W.ED.GENAD ---
Discharge Plan Disposition Patient Disposition: Home Condition: Stable Discharge Details Clinical Impression: Cat bite Primary Care Provider: Erin Friedman ED Provider: Kaycee Dominguez Home Meds and New Rx's Prescriptions: Continued diphth,pertus(acell),tetanus 2.5-8-5 Lf-mcg-Lf/0.5mL syringe 0.5 ml IM ONCE Qty: 0.5 0RF Rx Instructions: as a single dose allopurinol 100 mg tablet 100 mg PO DAILY Qty: 90 4RF atorvastatin 20 mg tablet 20 mg PO DAILY Qty: 90 5RF spironolactone 25 mg tablet 12.5 mg PO DAILY Qty: 90 4RF torsemide 20 mg tablet 20 mg PO DAILY Qty: 90 4RF trazodone 50 mg tablet 50 mg PO QHS Qty: 90 5RF amoxicillin-pot clavulanate 875-125 mg tablet 1 tab PO BID Qty: 14 0RF aspirin 81 mg tablet,delayed release (DR/EC) 81 mg PO DAILY cholecalciferol (vitamin D3) 25 mcg (1,000 unit) capsule 25 mcg PO DAILY latanoprost 0.005 % drops 1 drp ophthalmic (eye) QPM lisinopril [Zestril] 20 mg tablet 20 mg PO DAILY Qty: 90 4RF brinzolamide [Azopt] 1 % Drops,Suspension 1 drp OPHTHALMIC (EYE) BID timolol maleate 0.5 % Drops 1 drp OPHTHALMIC (EYE) DAILY Discharge Instructions Instructions: Animal Bites ED Additional Instructions: Take the antibiotic as prescribed for the next 5 to 7 days Elevate your hand above your heart is much as you are able to, the more it is in a dependent position less likely it will heal Wash with soap and water once daily and change the Telfa The Misbah wrap will help with compression to allow it to heal Should you develop spreading redness, fever, worsening pain please return for reassessment You will need to return for rack of rabies vaccines on day 07/23, 07/27, and 08/03 Stand Alone Forms: Portal Information Discharge Data Discharge Date/Time-TO BE ENTERED AT DEPARTURE: 07/20/25 11:24 HPI General Date/Time Provider Initiated Documentation: 07/20/25 10:08. HPI Narrative: This 79-year-old female presents with cat bite to right hand which occurred last evening. Patient took 2 stray cats into her house unsure of their vaccine status. States they were fighting and mom accidentally bit her hand. She was seen in urgent care prior to arrival here and was given Augmentin and a tetanus shot. They did not however have rabies vaccine which is why she was sent to the emergency department for assessment. Related Data Home Medications ?Medication ?Instructions ?Recorded ?Confirmed brinzolamide 1 % eye 1 drp ophthalmic (eye) BID 12/10/21 07/20/25 drops,suspension (Azopt) timolol maleate 0.5 % eye drops 1 drp ophthalmic (eye) DAILY 12/10/21 07/20/25 aspirin 81 mg tablet,delayed 81 mg PO DAILY 01/05/24 07/20/25 release cholecalciferol (vitamin D3) 25 25 mcg PO DAILY 01/05/24 07/20/25 mcg (1,000 unit) capsule latanoprost 0.005 % eye drops 1 drp ophthalmic (eye) QPM 01/05/24 07/20/25 allopurinol 100 mg tablet 100 mg PO DAILY #90 tabs 07/06/24 07/20/25 atorvastatin 20 mg tablet 20 mg PO DAILY #90 tabs 07/06/24 07/20/25 diphth,pertus(acell),tetanus 2.5 0.5 ml IM ONCE #0.5 mL 07/06/24 07/20/25 Lf unit-8 mcg-5 Lf/0.5mL IM syringe spironolactone 25 mg tablet 12.5 mg (1/2 x 25 mg) PO DAILY #90 07/06/24 07/20/25 tabs torsemide 20 mg tablet 20 mg PO DAILY #90 tabs 07/06/24 07/20/25 trazodone 50 mg tablet 50 mg PO QHS #90 tabs 07/06/24 07/20/25 lisinopril 20 mg tablet (Zestril) 20 mg PO DAILY #90 tabs 03/21/25 07/20/25 amoxicillin 875 mg-potassium 1 tab PO BID #14 tabs 07/20/25 07/20/25 clavulanate 125 mg tablet Previous Rx's ?Medication ?Instructions ?Recorded allopurinol 100 mg tablet 100 mg PO DAILY #90 tabs 07/06/24 atorvastatin 20 mg tablet 20 mg PO DAILY #90 tabs 07/06/24 diphth,pertus(acell),tetanus 2.5 0.5 ml IM ONCE #0.5 mL 07/06/24 Lf unit-8 mcg-5 Lf/0.5mL IM syringe spironolactone 25 mg tablet 12.5 mg (1/2 x 25 mg) PO DAILY #90 07/06/24 tabs torsemide 20 mg tablet 20 mg PO DAILY #90 tabs 07/06/24 trazodone 50 mg tablet 50 mg PO QHS #90 tabs 07/06/24 lisinopril 20 mg tablet (Zestril) 20 mg PO DAILY #90 tabs 03/21/25 amoxicillin 875 mg-potassium 1 tab PO BID #14 tabs 07/20/25 clavulanate 125 mg tablet Allergies Allergy/AdvReac Type Severity Reaction Status Date / Time dipivefrin (From Propine) Allergy Intermediate Unknown Verified 07/20/25 10:05 hydrocodone AdvReac Intermediate Other (See Verified 07/20/25 10:05 Comment) hydromorphone (From Dilaudid) AdvReac Intermediate Other (See Verified 07/20/25 10:05 Comment) oxycodone AdvReac Intermediate Other (See Verified 07/20/25 10:05 Comment) nylon AdvReac Mild Skin Rash Verified 07/20/25 10:05 General Stated Complaint: AnimalBite COLLIN: 4 Exam Narrative Exam Narrative: Multiple puncture wounds noted to right dorsal aspect of hand, flexion inspections of all digits intact, no evidence of foreign body, mild erythema limited to dorsal aspect without evidence of lymphangitis no wrist involvement Course Vital Signs Vital signs: Vital Signs Temperature 36.6 C 07/20/25 10:00 Pulse 74 07/20/25 10:00 Respiratory Rate 16 07/20/25 10:00 Blood Pressure 113/70 07/20/25 10:00 Pulse Oximetry 98 07/20/25 10:00 Temperature 36.6 C 07/20/25 11:19 Temperature Source Temporal Artery Scan 07/20/25 11:19 Pulse 77 07/20/25 11:19 Respiratory Rate 14 07/20/25 11:19 Blood Pressure 113/78 07/20/25 11:19 Blood Pressure Position Sitting 07/20/25 11:19 Pulse Oximetry 100 07/20/25 11:19 Oxygen Delivery Method Room Air 07/20/25 11:19 Oxygen Flow Rate 0 07/20/25 10:00 Pain Level 0 07/20/25 11:19 Medical Decision Making Patient will be given rabies vaccine and immunoglobulin. Wound was cleansed Telfa applied and an Misbah wrap for compression and patient encouraged elevation and decrease use. Patient will need to return to the infusion clinic for rabies vaccine on day 07/23, 07/27, and 08/03/25. Recheck in 48 hours encouraged return precautions reviewed and patient expressed understanding PFSH All Active Problems (Updated 07/20/25 @ 10:34 by AME Bradley) Cat bite (Acute) Need for post exposure prophylaxis for rabies (Acute) Laceration of hand (Acute) Infected cat bite of hand (Acute) Retained orthopedic hardware (Acute) Tendonitis of long head of biceps brachii of right shoulder (Acute) Rotator cuff arthropathy of right shoulder (Acute) Rotator cuff tear arthropathy of left shoulder (Acute) Metal bone fixation hardware in place (Acute) No MRI In brain Acquired deformity of shoulder (Acute) Left shoulder pain (Acute) Gout (Chronic) Pseudophakia, both eyes (Acute) Osteopenia (Acute) Arteriosclerotic cardiovascular disease (ASCVD) (Acute) YOLANDA (obstructive sleep apnea) (Chronic) Insomnia (Acute) Glucose intolerance (impaired glucose tolerance) (Acute) Hyperuricemia (Acute) Hyperlipemia (Acute) Glaucoma (Chronic) Exertional dyspnea (Acute) Hypertension (Chronic) Diastolic dysfunction (Acute) Depression (Chronic) CKD (chronic kidney disease) stage 3, GFR 30-59 ml/min (Acute) GERD (gastroesophageal reflux disease) (Chronic) Medical History (Updated 07/20/25 @ 10:34 by AME Bradley) Scoliosis (~07/1999) w/ surgical intervention Cystocele, unspecified (~07/10/87) Cerebral aneurysm (~01/1988) Tear of supraspinatus tendon Surgical History History of total right knee replacement (~2012) History of salpingo-oophorectomy (~12/1976) Status post right rotator cuff repair (~10/30/05) H/O cataract removal with insertion of prosthetic lens (~11/1999) H/O left breast implant (~02/1992) Re-implant 11/1993 Removal 06/2001 H/O cerebral aneurysm repair History of coronary artery stent placement (~09/2006) H/O left mastectomy (~10/1991) H/O: hysterectomy (~07/1977) History of tonsillectomy (~08/1991) S/P rotator cuff repair (~2001) LT arm History of hip replacement LT x2 #1 09/02/06 #2 Unknown date RT 08/02/09 Family History (Updated 02/01/25 @ 12:46 by Tonia Shin) Mother , 65 Cancer Diabetes Hyperlipidemia Hypertension Father , 56 Heart disease Sister Breast cancer Dementia Diabetes Heart disease Hyperlipidemia Hypertension Brother Heart disease Hyperlipidemia Paternal Grandmother Hyperlipidemia Hypertension Social History (Updated 02/01/25 @ 12:46 by Tonia Shin) Smoking/Tobacco Use Status: Never Second Hand Exposure: Yes Smoking risk assessment performed?: Yes Alcohol Intake: never Drug use: Never Substance use type: does not use Adopted: No Caregiver/Support person: No Household members: none Housing: house Number of Children: 2 number of grandchildren: 2 Communication Needs: Corrective Lenses Education Level: high school Do you need help understanding health information?: Often current occupation: retired Sexually active: No Do you think of yourself as: straight/heterosexual Current gender identity: female What is your relationship status?: How often do you talk on the phone with friends or family?: three or more times per week How often do you get together with friends or relatives?: three or more times per week How often do you attend jehovah's witness or episcopalian services?: decline to answer Do you belong to any clubs or organized social groups?: no Panel score (0-1 are the most socially isolated patients): 1 Dimple/Gnosticist: None Special dimple needs: No Agree to transfusion: Yes Seatbelt use: always Helmet use: No Drive intox or ride w/intox route salesman and driver: No Working smoke detector in home: Yes Carbon monox detector in home: Yes Firearms in home: Yes Firearms unloaded and locked: Yes Do you feel safe at home: Yes Do you feel safe in your relationship?: Yes Would you like helpful sources: No
== END 2025-07-20 11:24 | disposition home or self-care (01) ==
PROVIDERS: Emergency Provider Physician Assistant; PCP Family Medicine
DX: S61.551A Open bite of right wrist, initial encounter (principal); W55.01XA Bitten by cat, initial encounter
CPT/HCPCS: 99283; 99284; 90471; 96372; 90375; 90675

== ENCOUNTER 2025-07-27 02:30 | Outpatient (RCR) | payer MEDICARE, OTHER, SELFPAY ==
[2025-07-23] MEDS: Rabies vaccine (PCEC)/PF 2.5 UNITS/ML VIAL IM (13:30)
[2025-07-23 14:07] VITALS: BP 132/80; PULSE 75; RESP 16; TEMP 36.4; O2SAT 97
[2025-07-27] MEDS: Rabies vaccine (PCEC)/PF 2.5 UNITS/ML VIAL IM (13:25)
== END 2025-07-27 23:59 | disposition home or self-care (01) ==
LOC: INF 02:30
PROVIDERS: PCP Family Medicine; Visit Provider Physician Assistant
DX: Z20.3 Contact with and (suspected) exposure to rabies (principal); Z29.14 Encounter for prophylactic rabies immune globulin
CPT/HCPCS: 90471; 96372; 90675